=== PATIENT | male | born 1975 | race Caucasian/White ===

== ENCOUNTER 2024-11-03 09:56 | Inpatient (IN) | payer MEDICAID, SELFPAY ==
[2024-11-03] VITALS (79 sets, daily range): BP systolic 49–124; BP diastolic 36–79; PULSE 112–134; RESP 24–47; TEMP 36.6–37.8; O2SAT 88–100; BMI 20.1; BMI 18.3
--- NOTE | 2024-11-03 10:21 | EDNOTE_ITS ---
ED Weakness RME/HPI General Chief complaint: Recheck/Abnormal Lab/Rx Stated complaint: HYPOTENSION Time Seen by Provider: 11/03/24 10:07 Arrival date/time: 11/03/24 09:56 Limitations: no limitations RME / HPI RME / HPI Narrative: 49 year old male with history of esophageal cancer when younger and in remission, hypertension presents to the ED for evaluation of global weakness and shortness of breath today. Reportedly symptoms began a while ago and gradually worsening. Accompanied by a cough. Denies any sick contacts. Per medics report, patient noted to be hypotensive on scene 78/62 and given IV fluids, repeat blood pressure 82/49. Remote history of smoking. Related Data Allergies Allergy/AdvReac Type Severity Reaction Status Date / Time No Known Allergies Allergy Verified 11/03/24 10:13 Review of Systems Review of Systems Systems Reviewed: All systems reviewed, normal except as documented Past Medical History Past Medical History CARDIAC: Positive Hypertension; Negative Congestive Heart Failure RESPIRATORY: Negative Chronic Obstructive Pulmonary Disease (COPD) GENITOURINARY: Negative Renal Disease ENDOCRINE: Negative Diabetes Mellitus Type 1 or Diabetes Mellitus Type 2 Family History FAMILY HISTORY: Positive Family Cancer Social History SMOKING STATUS: Never smoker ED Exam General Limitations: Present no limitations General appearance: Present alert and anxious (shaking his legs rapidly ) Head Head exam: Present atraumatic and normocephalic Eye Eye exam: Present normal appearance, PERRL and EOMI ENT ENT exam: Present normal exam, normal oropharynx and mucous membranes moist Neck Neck exam: Present normal inspection, full ROM and trachea midline Chest Chest inspection: Present normal inspection and symmetric chest wall rise Respiratory Respiratory exam: Present other (slightly coarse breath sounds bilaterally ) Cardiovascular Cardiovascular exam: Present regular rate, normal rhythm, normal heart sounds and other (carotids +1 bruits) Abdominal Exam Abdominal exam: Present soft and normal bowel sounds Extremities Exam Extremities exam: Present normal inspection and full ROM Back Exam Back exam: Present normal inspection and full ROM Neurological Exam Neurological exam: Present alert, oriented X3 and CN II-XII intact Psychiatric Psychiatric exam: Present normal affect and normal mood Skin Skin exam: Present warm, dry, intact and normal color Course Quality Measures Current suspected stage: septic shock (LA >4 and/or hypotension) IVF 30 ml/kg given for lactic acid >4 and/or hypotension: yes Sepsis reassessment completed at (date): 11/03/24 Sepsis reassessment completed at (time): 12:15 Possible source: pulmonary Blood cultures ordered: completed in ED Antibiotic ordered: Yes Pertinent labs: 11/03/24 11:08 Lactic Acid 16.0 H* mMol/L (0.4-2.0) Procalcitonin 1.93 H ng/ml (0.0-0.49) sepsis Orders Category Date Time Status Bedside COVID-19 Antigen Test NOW Care 11/03/24 14:18 Active Bedside Influenza A&B Antigen Test NOW Care 11/03/24 14:18 Completed COVID-19 Screening Questionnaire NOW Care 11/03/24 12:[address] Screening NOW Care 11/03/24 15:05 Active Insecticide Mixer STAT Care 11/03/24 10:33 Active Continuous Pulse Oximetry STAT Care 11/03/24 10:33 Completed Decision to Admit X1 Care 11/03/24 12:57 Completed EKG (ED ONLY) *Do not use* NOW Care 11/03/24 10:22 Completed EKG (ED ONLY) *Do not use* NOW Care 11/03/24 13:15 Completed [place] [Urinary Catheter] QS Care 11/03/24 12:41 Active [place] to [place] Routine Care 11/03/24 12:42 Ordered In and Out Catheter X1PRN Care 11/03/24 10:33 Active Insert IV NOW Care 11/03/24 10:33 Active Insert [Insert IV] NOW Care 11/03/24 10:29 Active Miscellaneous Nursing Order NOW Care 11/03/24 13:32 Active NPO STAT Care 11/03/24 10:33 Active Strict Intake and Output Routine Care 11/03/24 10:33 Ordered CA echo doppler complete Stat Exams 11/03/24 13:[address] angio chest abdomen pelvis Stat Exams 11/03/24 15:05 Ordered CXRP [XR chest 1V portable] Stat Exams 11/03/24 10:32 Completed EKG (ED Only) Stat Exams 11/03/24 10:22 Draft EKG (ED Only) Stat Exams 11/03/24 13:15 Draft ABG [Arterial Blood Gas] Stat Lab 11/03/24 11:20 Completed ABG [Arterial Blood Gas] Stat Lab 11/03/24 14:11 Completed Alcohol, Blood Medical Stat Lab 11/03/24 13:32 Completed Ammonia Stat Lab 11/03/24 13:32 Completed B-Type Natriuretic Peptide Stat Lab 11/03/24 11:08 Completed Blood Culture (Lab) Stat Lab 11/03/24 11:08 Received CBC Stat Lab 11/03/24 11:08 Completed CK [Creatine Kinase] Stat Lab 11/03/24 13:32 Completed Comprehensive Metabolic Panel Stat Lab 11/03/24 11:08 Completed D-Dimer Stat Lab 11/03/24 11:08 Completed Drug Screen,Urine Stat Lab 11/03/24 13:08 Completed Electrolytes, Urine Random Stat Lab 11/03/24 13:08 Completed Free T4 (Free Thyroxine) Stat Lab 11/03/24 13:32 Completed Lactic Acid [Lactate (Lactic Acid)] Stat Lab 11/03/24 11:08 Completed Lactic Acid, 3 HR Stat Lab 11/03/24 14:21 Ordered Lipid Panel Stat Lab 11/03/24 13:32 Completed Magnesium Stat Lab 11/03/24 11:08 Completed Partial Thromboplastin Time Stat Lab 11/03/24 11:08 Completed Procalcitonin Stat Lab 11/03/24 11:08 Completed Prothrombin Time with INR Stat Lab 11/03/24 11:08 Completed Salicylate Stat Lab 11/03/24 13:32 Completed TSH [Thyroid Stimulating Hormone] Stat Lab 11/03/24 13:32 Completed Troponin I Stat Lab 11/03/24 11:08 Completed Troponin I Stat Lab 11/03/24 12:53 Completed Urinalysis Stat Lab 11/03/24 13:07 Completed Urine Culture Stat Lab 11/03/24 13:07 Received ALBUTEROL RT 0.5ml [Proventil Rt 0.5ml] Med 11/03/24 10:58 Discontinued 10 mg INH X1 ONE ALBUTEROL RT 3ml [Proventil Rt 3ml] Med 11/03/24 10:29 Discontinued 10 mg INH X1 ONE Albuterol/Ipratr Rt Anastacia [Duoneb Rt Anastacia] Med 11/03/24 12:31 Discontinued 3 ml .ROUTE .STK-MED ONE Albuterol/Ipratr Rt Anastacia [Duoneb Rt Anastacia] Med 11/03/24 12:34 Discontinued 3 ml INH X1 ONE Doxycycline Inj [Vibramycin Inj] 100 mg Med 11/03/24 10:36 Discontinued Sodium Chloride 0.9% (Pop) [NS 0.9% mini bag] 100 ml IV X1 Etomidate Inj [Amidate Inj] Med 11/03/24 13:47 Discontinued 20 mg IVP X1 ONE Furosemide Inj [Lasix Inj] Med 11/03/24 13:22 Discontinued 20 mg IVP X1 ONE Furosemide Inj [Lasix Inj] Med 11/03/24 14:31 Discontinued 20 mg IVP X1 ONE Furosemide Inj [Lasix Inj] Med 11/03/24 13:22 Discontinued 40 mg IVP X1 ONE Furosemide [Lasix] Med 11/03/24 12:34 Discontinued 40 mg PO X1 ONE LORazepam [Ativan Inj] Med 11/03/24 12:41 Discontinued 0.5 mg IVP X1 ONE MethylPREDNISolone.* [SoluMEDROL Inj] Med 11/03/24 10:29 Discontinued 125 mg IVP X1 ONE MethylPREDNISolone.* [SoluMEDROL Inj] Med 11/03/24 12:34 Discontinued 125 mg IVP X1 ONE Norepinephrine/D5W 8mg/250ml [Levophed in D5W 8mg/250ml Med 11/03/24 14:40 Discontinued ] 8 mg in 250 ml IV .STK-MED Norepinephrine/D5W 8mg/250ml [Levophed in D5W 8mg/250ml Med 11/03/24 14:57 Active ] 8 mg in 250 ml IV 0.05 mcg/kg/min Propofol 1,000 mg Ivpb [Diprivan Ivpb] Med 11/03/24 13:48 Active 1,000 mg in 100 ml IV 5 mcg/kg/min Ringers Lactated 1000 ml [Lactated Ringers] 2,052 ml Med 11/03/24 10:33 Discontinued IV 2,052 mls/hr Ringers Lactated 1000 ml [Lactated Ringers] 500 ml Med 11/03/24 15:02 Active IV 999 mls/hr Rocuronium Inj [Zemuron Inj] Med 11/03/24 13:47 Discontinued 50 mg IV X1 ONE Sodium Chloride 0.9% 500 ml [Ns] 500 ml Med 11/03/24 15:01 Active IV 999 mls/hr Sodium Chloride Rt Anastacia 0.9% [NS Rt Anastacia 0.9%] Med 11/03/24 10:58 Active 3 ml INH PRN PRN cefTRIAXone [Rocephin] 2 gm Med 11/03/24 10:36 Discontinued SODIUM CHLORIDE 0.9% (Popper) [Ns 0.9% (P)] 50 ml IV X1 BiPAP / CPAP NOW RT 11/03/24 10:31 Active Oxygen Delivery NOW RT 11/03/24 12:32 Active Vital Signs Vital signs: Vital Signs Temperature 99.2 F 11/03/24 10:14 Pulse Rate 127 H 11/03/24 10:14 Respiratory Rate 40 H 11/03/24 10:14 Blood Pressure 81/55 L 11/03/24 10:14 Pulse Oximetry (%) 98 11/03/24 10:14 Oxygen Delivery Method Room Air 11/03/24 10:14 Weakness MDM Narrative MDM Narrative:: Catalina Flores am scribing for and in the presence of Dr. Boss. Patient data External records reviewed:: EMS form Clinical information provided by:: patient and EMS Social determinants that could affect healthcare access:: none Patient has the following chronic illnesses:: Asthma? hx of esophageal cancer when younger How is presenting disease/condition affected by chronic disease/condition?: ex acerbated by Evaluation data The following diagnostics were reviewed and interpreted by me:: lab results, radiology exam(s) and EKG tracing(s) (11/03/2024 @ 10:34 AM. Sinus tachycardia with short WI interval, left ventricular hypertrophy, nonspecific ST and T-wave changes, no STEMI. ) Lab and/or radiology exams considered but not ordered:: None Interpretation Summary: Ordering Physician: Devin Boss MD Date of Service: 11/03/24 Procedure(s): XR chest 1V portable Accession Number(s): [id number] cc: Devin Boss MD; Pedrito Amaro MD~ Examination: AP chest single view TECHNIQUE: AP portable upright chest single view Date and time: November 03, 2024 1037 hours INDICATIONS: Shortness of breath today. FINDINGS: Bilateral pneumonia, diffuse and prominent in the right lung Normal heart size Prominent osteopenia IMPRESSION: Bilateral pneumonia, significant in the right lung Dictated By: Pedrito Amaro MD Signed By: <Electronically signed by Pedrito Amaro MD in OV> 11/03/24 1107 Medications / Prescriptions Medications or Prescriptions considered but not ordered:: None Medication administrations:: Medication Administration History Propofol (Diprivan Ivpb) 1,000 mg in 100 mls @ 1.802 mls/hr IV .Q24H PRN; Protocol PRN Reason: PER PROTOCOL Stop: 12/03/24 13:47 Norepinephrine/Dextrose (Levophed In D5w 8mg/250ml) 8 mg in 250 mls @ 5.63 mls/hr IV .Q24H PRN; Protocol PRN Reason: PER PROTOCOL Stop: 12/03/24 14:56 Last Titration: 11/03/24 15:12 Dose: 0.05 mcg/kg/min, 5.63 mls/hr Documented By: Titration: 11/03/24 15:07 Dose: 0.05 mcg/kg/min, 5.63 mls/hr Documented By: Titration: 11/03/24 15:02 Dose: 0.05 mcg/kg/min, 5.63 mls/hr Documented By: Admin: 11/03/24 14:57 Dose: 0.05 mcg/kg/min, 5.63 mls/hr Documented By: Sodium Chloride (Ns) 500 mls @ 999 mls/hr IV .Q31M ONE Stop: 11/03/24 15:31 Last Admin: 11/03/24 15:01 Dose: Not Given Documented By: Non-Admin Reason: Cancelled by Provider Lactated Ringer's (Lactated Ringers) 500 mls @ 999 mls/hr IV .Q31M ONE Stop: 11/03/24 15:32 Last Admin: 11/03/24 15:04 Dose: 999 mls/hr Documented By: Sodium Chloride (Sodium Chloride Rt Anastacia 0.9% 3 Ml Nebu) 3 ml INH PRN PRN PRN Reason: SOLN Stop: 12/03/24 10:57 Discontinued Medications Albuterol (Albuterol Rt 2.5 Mg/3 Ml Nebu) 10 mg INH X1 ONE Stop: 11/03/24 10:30 Last Admin: 11/03/24 11:26 Dose: Not Given Documented By: Non-Admin Reason: Discontinued Albuterol (Albuterol Rt 2.5 Mg/0.5 Ml Nebu) 10 mg INH X1 ONE Stop: 11/03/24 10:59 Last Admin: 11/03/24 11:08 Dose: 10 mg Documented By: Albuterol/Ipratropium (Albuterol/Ipratropium (Duoneb) Rt Anastacia 3 Ml Nebu) 3 ml INH X1 ONE Stop: 11/03/24 12:35 Last Admin: 11/03/24 12:56 Dose: 3 ml Documented By: CLARITZA Albuterol/Ipratropium (Albuterol/Ipratropium (Duoneb) Rt Anastacia 3 Ml Nebu) Confirm Administered Dose 3 ml .ROUTE .STK-MED ONE Stop: 11/03/24 12:32 Last Admin: 11/03/24 12:57 Dose: Not Given Documented By: CLARITZA Non-Admin Reason: Duplicate Medication on eMAR Etomidate (Etomidate Inj 2 Mg/Ml Vial 10 Ml) 20 mg IVP X1 ONE Stop: 11/03/24 13:48 Last Admin: 11/03/24 14:52 Dose: 20 mg Documented By: JALIL Furosemide (Furosemide 40 Mg Tablet) 40 mg PO X1 ONE Stop: 11/03/24 12:35 Last Admin: 11/03/24 12:54 Dose: Not Given Documented By: JALIL Non-Admin Reason: Cancelled by Provider Furosemide (Furosemide Inj 10 Mg/Ml 4ml Vial) 40 mg IVP X1 ONE Stop: 11/03/24 13:23 Last Admin: 11/03/24 13:28 Dose: Not Given Documented By: JALIL Non-Admin Reason: Discontinued Furosemide (Furosemide Inj 10 Mg/Ml 4ml Vial) 20 mg IVP X1 ONE Stop: 11/03/24 13:23 Last Admin: 11/03/24 13:34 Dose: 20 mg Documented By: JALIL Furosemide (Furosemide Inj 10 Mg/Ml 4ml Vial) 20 mg IVP X1 ONE Stop: 11/03/24 14:32 Lactated Ringer's (Lactated Ringers) 2,052 mls @ 2,052 mls/hr 30 ml/kg infuse over 60 min (2052 ml) IV .Q1H ONE Stop: 11/03/24 11:32 Last Infusion: 11/03/24 12:07 Dose: Infused Documented By: Admin: 11/03/24 10:59 Dose: 2,052 mls/hr Documented By: JALIL Ceftriaxone Sodium 2 gm/ (Sodium Chloride) 50 mls @ 100 mls/hr IV X1 ONE Stop: 11/03/24 11:05 Last Infusion: 11/03/24 12:07 Dose: Infused Documented By: Admin: 11/03/24 11:26 Dose: 100 mls/hr Documented By: Doxycycline Hyclate 100 mg/ (Sodium Chloride) 100 mls @ 100 mls/hr IV X1 ONE Stop: 11/03/24 11:35 Last Infusion: 11/03/24 13:25 Dose: Infused Documented By: Admin: 11/03/24 12:23 Dose: 100 mls/hr Documented By: Norepinephrine/Dextrose (Levophed In D5w 8mg/250ml) Confirm Administered Dose 8 mg in 250 mls @ ud IV .STK-MED ONE Stop: 11/03/24 14:41 Last Admin: 11/03/24 14:57 Dose: Not Given Documented By: Non-Admin Reason: Duplicate Medication on eMAR Lorazepam (Lorazepam 2 Mg/Ml Vial) 0.5 mg IVP X1 ONE Stop: 11/03/24 12:42 Last Admin: 11/03/24 13:28 Dose: Not Given Documented By: Non-Admin Reason: Discontinued Methylprednisolone Sodium Succinate (Methylprednisolone Sod Succ 62.5 Mg/Ml 2ml Vial) 125 mg IVP X1 ONE Stop: 11/03/24 10:30 Last Admin: 11/03/24 10:55 Dose: 125 mg Documented By: Methylprednisolone Sodium Succinate (Methylprednisolone Sod Succ 62.5 Mg/Ml 2ml Vial) 125 mg IVP X1 ONE Stop: 11/03/24 12:35 Last Admin: 11/03/24 12:55 Dose: 125 mg Documented By: Rocuronium [place] (Rocuronium Inj 10 Mg/Ml Vial 10 Ml) 50 mg IV X1 ONE Stop: 11/03/24 13:48 Last Admin: 11/03/24 14:52 Dose: 50 mg Documented By: Co-signed By: [facility] Comments: GIVEN IN LEFT AC 1 MINUTE. See above Consultations Consultation(s) initiated? (list below): Yes Consultation #1 (Physician, Specialty, Details): I spoke with senior java j2ee developer Dr. Diaz. Discussed patients PMHx, HPI, ED course, exam findings, labs, and radiology results. Medical Front Desk Coordinator accepts the patient for admission. Time: 12:52 Diagnosis Weakness Differential Diagnosis: acute myocardial infarction, anemia, hypoglycemia, rhabdomyolysis, sepsis and dehydration Most likely diagnosis given after review of the tests above:: Respiratory failure Bilateral pneumonia Sepsis Admission Indicated Admission indicated?: indicated Admission Request Was there a request for admission?: Yes Admission Attestation Admission request attestation: Discussed case with [] from Hospitalist service regarding admission. Discussed patients ED course, exam findings, labs, and radiology results. The Hospitalist [agrees,declines] to accept the patient for admission. Disposition Plan Disposition Plan: Admit Critical Care Time Critical Care Time Critical Care Time: Yes Total Critical Care Time (min.): 90 Attestation: The high probability of sudden, clinically significant deterioration in the patient's condition required the highest level of my preparedness to intervene urgently. The services I provided to this patient were to treat and/or prevent clinically significant deterioration. Services included the following: chart data review, reviewing nursing notes and/or old charts, documentation time, senior treasury consultant collaboration regarding findings and treatment options, medication orders and management, direct patient care, vital sign assessments and ordering, interpreting and reviewing diagnostic studies and lab tests. Aggregate critical care time includes only time during which I was engaged in work directly related to the patient's care, as described above, whether at bedside or elsewhere in the Emergency Department. It did not include time spent performing other reported procedures or the services of residents, students, nurses or physician assistants. Discharge Plan Plan Patient Disposition: Admit Acute Care w/in Hospital Discharge Disposition comment: ICU Prescriptions/Referrals Referrals: No Primary/Family,Physician [Primary Care Provider] - In 1 week Problem List Clinical Impression: Respiratory failure, Sepsis, Bilateral pneumonia Patient/Caregiver Discharge Instructions Print Language: Montenegrin Stand Alone Forms: [facility] Award Info., Patient Portal Info Letter
--- NOTE | 2024-11-03 10:22 | EKG_ITS ---
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
--- NOTE | 2024-11-03 10:32 | XR_ITS ---
Examination: AP chest single view TECHNIQUE: AP portable upright chest single view Date and time: November 03, 2024 1037 hours INDICATIONS: Shortness of breath today. FINDINGS: Bilateral pneumonia, diffuse and prominent in the right lung Normal heart size Prominent osteopenia IMPRESSION: Bilateral pneumonia, significant in the right lung
--- NOTE | 2024-11-03 10:40 | PC.NURSE ---
PT GIVEN 400ML OF NS BY EMS; THE REST OF NS BOLUS ALLOWED TO BE INFUSED, PER DR. REYNOSO. PT GIVEN 1L MORE OF LR BOLUS. PT'S BNP ELEVATED AT THIS TIME. DR. REYNOSO MADE AWARE. PER DR. REYNOSO, DO NOT GIVE LAST 1L OF LR. HOLD FOR NOW. I WILL COME ASSESS PT.
[2024-11-03] MEDS: MethylPREDNISolone SOD SUCC 62.5 MG/ML 2ML VIAL 125 MG IVP ×2 (10:55→12:55)
[2024-11-03] MEDS: RINGERS LACTATED 2052 ML IV (10:59)
[2024-11-03] MEDS: ALBUTEROL RT 2.5 MG/0.5 ML NEBU 10 MG INH (11:08)
[2024-11-03] MEDS: cefTRIAXone 2 GM in SODIUM CHLORIDE 0.9% (Popper) 50 ML IV (11:26)
[2024-11-03 11:27] LABS: Allen Test Not Performed; Base Excess -12 (-3-3); HCO3 12 mEq/L (20-26); Inspired Oxygen, FIO2 30 %; O2 Saturation 100 % (91-98); PCO2 21 mmHg (32.0-48.0); PO2 193 mmHg (83-108); Puncture Site Right Radial; pH, Arterial 7.35 (7.35-7.45)
[2024-11-03 11:29] LABS: Lactate (Lactic Acid) 16.0 mMol/L (0.4-2.0)
[2024-11-03 11:39] LABS: Basophils # (Auto) 0.1 Thou/mm3 (0.0-0.2); Basophils % (Auto) 0 % (0-2.5); Eosinophils # (Auto) 0.0 Thou/mm3 (0.0-0.5); Eosinophils % (Auto) 0 % (0-10); Hematocrit 27.5 % (41.0-53.0); Hemoglobin 8.8 g/dL (13.5-16.0); Immature Granulocytes Auto 0.64 Thou/mm3 (0.00-0.00); Lymphocytes # (Auto) 2.7 Thou/mm3 (1.0-4.8); Lymphocytes % (Auto) 9 % (10-50); Mean Corpuscular HGB Conc 32.0 g/dl (31.0-37.0); Mean Corpuscular Hemoglobin 31.3 pg (25.0-35.0); Mean Corpuscular Volume 98 fL (80-100); Monocytes # (Auto) 2.4 Thou/mm3 (0.0-0.8); Monocytes % (Auto) 7 % (0-12); Neutrophils # (Auto) 26.0 Thou/mm3 (1.8-7.7); Neutrophils % (Auto) 82 % (37-80); Nucleated Red Blood Cell # 0.06 Thou/mm3 (0.00-0.00); Nucleated Red Blood Cell % 0 /100 WBC (0); Platelet Count 541 Thou/mm3 (140-440); RDW Standard Deviation 61.3 fL (35.1-43.9); Red Blood Count 2.81 Miln/mm3 (4.50-5.90); White Blood Count 31.8 Thou/mm3 (3.8-10.6)
[2024-11-03 11:51] LABS: INR 1.4 (0.9-1.3); Partial Thromboplastin Time 28.3 Seconds (22.0-36.0); Prothrombin Time 15.4 Seconds (9.0-12.2)
[2024-11-03 12:00] LABS: B-Type Natriuretic Peptide 2306 pg/mL (0-100)
[2024-11-03 12:01] LABS: Alanine Aminotransferase 81 U/L (10-49); Albumin, Serum 3.1 gm/dL (3.5-5.0); Albumin/Globulin Ratio 1.4 (1.2-2.2); Alkaline Phosphatase 87 U/L (46-116); Anion Gap 25 (7-16); Aspartate Amino Transferase 255 U/L (0-34); BUN/Creatinine Ratio 33 Ratio (12-20); Bilirubin,Total 1.2 mg/dL (0.3-1.2); Blood Urea Nitrogen 53 mg/dL (9-23); Calcium 8.9 mg/dL (8.3-10.6); Calcium (Corrected) 9.6 mg/dL (8.5-10.1); Chloride 108 mMol/L (98-107); Creatinine (Component) 1.6 mg/dL (0.6-1.3); Estimated Creatinine Clearance 46.4 mL/min (>60); Globulin 2.2 gm/dL (2.3-3.5); Glucose 131 mg/dL (74-106); Magnesium 2.0 mg/dL (1.6-2.6); Osmolality,Calculated 306 (275-295); Potassium 5.0 mMol/L (3.4-5.1); Procalcitonin 1.93 ng/ml (0.0-0.49); Sodium 146 mMol/L (136-145); Total Protein 5.3 gm/dL (5.7-8.2); eGFR 52 See Note
[2024-11-03 12:03] LABS: Carbon Dioxide 12.8 mMol/L (20.0-31.0); Troponin I 4.326 ng/mL (0.0-0.045)
[2024-11-03] MEDS: DOXYCYCLINE INJ 100 MG in SODIUM CHLORIDE 0.9% (POP) 100 ML IV (12:23)
[2024-11-03 12:34] LABS: D-Dimer < 250 ng/mL (<600)
[2024-11-03] MEDS: ALBUTEROL/IPRATROPIUM (Duoneb) RT SOL 3 ML NEBU INH (12:56)
--- NOTE | 2024-11-03 13:09 | PC.NURSE ---
PT SIGNED POLST FORM. PT AGREED FOR FULL RESUSCITATION WITHOUT PROLONGED INTUBATION. SEE PT'S CHART FOR POLST FORM FOR MORE INFORMATION. THIS RN WITNESSED. DR. Nayeli REYNOSO AT BEDSIDE EDUCATING ABOUT PT'S POLST FORM. DR. Nayeli REYNOSO SIGNED POLST FORM AND PT SIGNED FORM AT THIS TIME.
--- NOTE | 2024-11-03 13:12 | PC.NURSE ---
ICU TEAM AT BEDSIDE ASSESSING PT AT THIS TIME AND PERFORMING ECHOCARDIOGRAM.
[2024-11-03 13:14] LABS: Collection Type, Urine Clean Catch; Squamous Epithelial Cell,Urine 0 /hpf (0-5)
--- NOTE | 2024-11-03 13:15 | EKG_ITS ---
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
[2024-11-03 13:18] LABS: Troponin I 4.320 ng/mL (0.0-0.045)
[2024-11-03 13:23] LABS: Bacteria,Urine Rare; Bilirubin,Urine Negative (Negative); Blood,Urine Negative (Negative); Clarity,Urine Turbid (Clear/Hazy); Color,Urine Yellow (Lt Yel-Yel); Glucose, Urine Negative (Negative); Hyaline Casts,Urine 3 /hpf (0-1); Ketones,Urine Trace (Negative); Leukocyte Esterase,Urine Negative (Negative); Nitrite,Urine Negative (Negative); PH,Urine 6.0 (5.0-7.0); Protein,Urine Trace (Neg - Trace); RBC,Urine 1 /hpf (0-3); Specific Gravity,Urine 1.020 (1.001-1.035); Urobilinogen,Urine Negative mg/dL (0.0-1.0); WBC,Urine 2 /hpf (0-5)
[2024-11-03] MEDS: FUROSEMIDE INJ 10 MG/ML 4ML VIAL 20 MG IVP (13:34)
--- NOTE | 2024-11-03 13:42 | ECHO_ITS ---
Transthoracic Echo Report Ht (in): 68 Wt (lb): 132 Exam Location: Echo Lab Status: Emergency Security Intern: Nohemy Sterling Indications: Procedure Performed: BP: 108 / 86 HR: 155 Technical Quality: Adequate MEASUREMENTS (Male / Female) Normal Values 2D ECHO LV Diastolic Diameter PLAX 4.7 cm 4.2 - 5.9 / 3.9 - 5.3 cm LV Systolic Diameter PLAX 2.7 cm IVS Diastolic Thickness 0.7 cm 0.6 - 1.0 / 0.6 - 0.9 cm LVPW Diastolic Thickness 0.8 cm 0.6 - 1.0 / 0.6 - 0.9 cm LV Relative Wall Thickness 0.3 LVOT Diameter 1.4 cm LA Volume Index 49.4 cm?/m? 16 - 28 cm?/m? DOPPLER MR Peak Velocity 511.0 cm/s MR Peak Gradient 104.4 mmHg TR Peak Velocity 398.0 cm/s TR Peak Gradient 63.4 mmHg FINDINGS Left Ventricle Normal LV size and moderate LV systolic dysfunction with an EF of 35 to 40%. Apical akinesis with hypokinesis of the mid to apical anterior, anterolateral and apical septal segments indicating possible Takotsubo syndrome versus LAD involvement. Unable to determine diastology due to tachycardia. Right Ventricle The right ventricle is normal in size and systolic function. The estimated right ventricular systolic pressure, 63 mmHg. RAP 5mmHg. Left Atrium The left atrium is normal by two-dimensional, color flow and Doppler imaging with no structural abnormalities, no thrombus formation present. Right Atrium The right atrium is normal by two-dimensional imaging, color flow and Doppler imaging with no structural abnormalities, no thrombus formation present. Atrial Septum The interatrial septum appears normal with no evidence of a shunt. Aorta The aorta is normal by two-dimensional, color flow and Doppler interrogation. Mitral Valve The mitral valve is normal by two-dimensional, color flow and Doppler interrogation. There is severe mitral regurgitation with reverse coando effect. Pulmonary vein Doppler reversal of flow noted. Aortic Valve The aortic valve is trileaflet and normal by two-dimensional, color flow and Doppler interrogation. There is mild aortic valve regurgitation. Tricuspid Valve The tricuspid valve is normal by two-dimensional, color flow and Doppler interrogation. There is mild tricuspid regurgitation. Pulmonic Valve The pulmonic valve is not well visualized. There is no significant pulmonic valve regurgitation. Vessels The pulmonary artery appears normal. The inferior vena cava pulmonary and hepatic veins appear normal. Pericardium The pericardium is normal by two-dimensional imaging. There is no significant pericardial effusion. CONCLUSIONS Indications: ACS Normal LV size and moderate LV systolic dysfunction with an EF of 35 to 40%. Apical akinesis with hypokinesis of the mid to apical anterior, anterolateral and apical septal segments indicating possible Takotsubo syndrome versus LAD involvement. RV Normal in size and function. RVSP moderate to severely elevated at 65 mmHg Moderate to severe eccentric MR directed anteriorly-etiology unclear. Severe LA dilatation. Trace AI Moderate TR with mild RA dilatation. No Pericardial Effusion. IVC not well-visualized Colin Brandt (Electronically Signed) Final Date: 03 November 2024 17:32
--- NOTE | 2024-11-03 13:53 | PC.NURSE ---
DR. NIXON, DR. SHEPHERD AT BEDSIDE SPEAKING TO PT; PT NOW STATING HE DOES NOT WANT TO GET INTUBATED AT THIS TIME. DR. NIXON SPEAKING TO PT AND PT'S SISTER FOR EDUCATION ON BENEFITS OF INTUBATION FOR PT'S PLAN OF CARE AT THIS TIME.
[2024-11-03 13:59] LABS: Ammonia 79 uMol/L (11-32)
--- NOTE | 2024-11-03 14:01 | PC.NURSE ---
DR. NIXON SPOKE TO PT'S SISTER EFFIE AND GAVE CONSENT FOR PT TO BE INTUBATED VIA TELEPHONE. THIS RN WITNESS. PT VERBALLY AGREED AND NODDING IN AGREEMENT WELL. PER DR. NIXON, WE ARE GOING TO WAIT 2O MINUTES. NO INTUBATION FOR NOW. MONITOR PT FOR SIGNS AND SYMPTOMS OF HYPOTENSION, MOTTLING, DECREASED LOC, AND WORSENING RESPIRATORY DISTRESS. IF PT STILL IN RESPIRATORY DISTRESS, WE WILL INTUBATE PT. IF IN 20 MINUTES, PT HAS NOT VOIDED ANOTHER 300ML OF URINE VIA LEIGH CATHETER, GIVE PT ANOTHER 20MG OF LASIX IVPUSH.
[2024-11-03 14:14] LABS: Base Excess -14 (-3-3); HCO3 11 mEq/L (20-26); Inspired Oxygen, FIO2 92 %; O2 Saturation 96 % (91-98); PCO2 20 mmHg (32.0-48.0); PO2 82 mmHg (83-108); pH, Arterial 7.34 (7.35-7.45)
[2024-11-03 14:15] LABS: Allen Test Not Performed; Puncture Site Right Radial
--- NOTE | 2024-11-03 14:15 | PC.NURSE ---
EFFIE, PT'S SISTER, AT BEDSIDE AT THIS TIME.
[2024-11-03 14:21] LABS: Reflex Lactate? Y
--- NOTE | 2024-11-03 14:23 | PC.NURSE ---
DR. SHEPHERD AT BEDSIDE EDUCATING EFFIE, PT'S SISTER, AND PT ABOUT THE BENEFIT OF INTUBATION AT THIS TIME.
[2024-11-03 14:40] LABS: Amphetamine/Methamp Scrn,U Negative (Negative); Barbiturate Screen,Urine Negative (Negative); Benzodiazepines Screen,Urine Negative (Negative); Benzoylecgonine Screen, Ur Negative (Negative); Chloride,Urine Random < 20.0 mMol/L (55.0-125.0); Fentanyl Screen,Urine Negative (Negative); Opiate Screen,Urine Negative (Negative); Potassium,Urine Random 31 mMol/L (12-62); Sodium,Urine Random < 15.0 mMol/L (20.0-110.0); THC Screen,Urine Negative (Negative)
--- NOTE | 2024-11-03 14:41 | PC.NURSE ---
DR. NIXON MADE AWARE PT'S URINE OUTPUT ONLY INCREASED BY 100ML. THIS RN SEEKING CLARIFICATION IF MD STILL WANTED TO GIVE PT 20MG IV PUSH OF LASIX; PER DR. NIXON, HOLD ON GIVING LASIX FOR NOW; WAIT UNTIL PT IS INTUBATED FIRST AND MONITOR HOW HIS BP HANDLES THE INTUBATION PROCESS.
[2024-11-03] MEDS: ETOMIDATE INJ 2 MG/ML VIAL 10 ML 20 MG IVP (14:52)
[2024-11-03] MEDS: ROCURONIUM INJ 10 MG/ML VIAL 10 ML 50 MG IV (14:52)
--- NOTE | 2024-11-03 14:53 | PC.NURSE ---
PT INTUBATED AT 1453; POSITIVE COLOR CHANGE. SIZE OF ETT 7.5, 23CM AT GUM. PT INTUBATED BY DR. Chadwick NIXON
[2024-11-03] MEDS: Norepinephrine/D5W 8mg/250ml 8 MG/250 ML BAG 5.63 MG IV (14:57)
[2024-11-03] MEDS: RINGERS LACTATED 1000 ML 500 ML 999 ML IV (15:04)
--- NOTE | 2024-11-03 15:05 | XR_ITS ---
Examination: CTA chest, with intravenous contrast. CTA abdomen, with intravenous contrast. CTA pelvis, with intravenous contrast. 2-D sagittal and coronal reconstructions. 3-D reconstructions. Date and time of exam: November 03, 2024 1651 hours INDICATIONS: Sharp, hypotension, lactic acidemia, hypoxic respiratory failure postintubation today CTDI vol (mgy) 7.84 DLP (MGycm) 433 Technique: Multiple CTA images, 2.0 mm slice thickness, obtained chest, abdomen, pelvis, with the high-resolution 64 slice scanner. 60 cc Isovue 370 is administered intravenously. Sagittal and coronal 2-D reconstructions are obtained. 3-D reconstructions, angiographic images are obtained. 3-D postprocessing, including vascular maximum intensity projections. Low dose protocols were performed. One or more of the following dose reduction techniques were used; automated exposure control, adjustment of the mA and/or KV according to patient size, use of iterative reconstruction technique. Findings: Tracheal tube tip 25 mm above go No thoracic aortic aneurysm dilatation Main pulmonary artery segment 30 mm, pulmonary alveolar opacification is poor, no gross pulmonary artery filling defects Mild to moderate enlargement cardiac contour with prominent vascular congestion Extensive right lung and left base pneumonia with small right pleural effusion Cirrhosis, liver are nodular in contour Retrocardiac gastric hernia No gallstones No pancreatic or adrenal mass No hydronephrosis Diffuse wall thickening involving the colon, hepatic colopathy No pericecal inflammatory change No bowel obstruction No diverticulitis No significant prostatomegaly Large right inguinal hernia containing colon although no definite incarcerated bowel Urinary bladder contracted around a [place] catheter Moderate osteopenia IMPRESSION: Pulmonary artery opacification is poor, no gross pulmonary artery emboli Mild heart failure. Significant right lung and left base pneumonia, consider aspiration pneumonia Cirrhosis Diffuse hepatic colopathy Large right inguinal hernia containing colon although no definite incarcerated bowel
[2024-11-03 15:07] LABS: Alcohol, Blood Medical < 3.0 mg/dL (0-10.0); Cardiac Risk Estimate 2.1 RATIO (4.0-6.7); Cholesterol 113 mg/dL (132-200); Creatine Kinase 570 U/L (34-171); Free T4 (Free Thyroxine) 0.51 ng/dL (0.89-1.76); HDL Cholesterol 53 mg/dL (40-60); LDL Cholesterol,Calculated 39 mg/dL (0-130); Salicylate < 3.0 mg/dL; Thyroid Stimulating Hormone 1.66 uIU/mL (0.55-4.78); Triglycerides 103 mg/dL (30-150)
--- NOTE | 2024-11-03 15:24 | XR_ITS ---
Examination: AP chest single view Technique one AP portable supine chest single view Date and time: November 03, 2024 1538 hours Comparison November 03, 2024 10:37 AM INDICATIONS: Hypoxic respiratory failure postintubation. FINDINGS: Worsening bilateral lung opacity consistent with pulmonary edema and pneumonia Endotracheal tube tip 2.7 cm above go. Right internal jugular central line tip right atrium no pneumothorax IMPRESSION: Worsening heart failure with possible superimposed pneumonia Endotracheal tube tip 2.7 cm above go Right internal jugular central line tip right atrium no pneumothorax
--- NOTE | 2024-11-03 15:32 | EKG_ITS ---
[facility] Test Date: 2024-11-03 Pat Name: PRUDENCIO LOZADA Department: Room: - Gender: Male Rehabilitation Liaison: : 1975 Requested By: Wiliam Ramos Order Number: [id number] Reading MD: Wiliam Ramos Measurements Intervals [place] Rate: 119 P: ME: QRS: 38 QRSD: 83 T: 199 QT: 353 QTc: 498 Interpretive Statements ATRIAL FLUTTER/TACHYCARDIA WITH RAPID VENTRICULAR RESPONSE ST DEVIATION AND MARKED T-WAVE ABNORMALITY, CONSIDER ANTEROLATERAL ISCHEMIA [-0.5+ mV T-WAVE IN I/aVL/V3-V6] ST DEVIATION AND MODERATE T-WAVE ABNORMALITY, CONSIDER INFERIOR ISCHEMIA [-0.1+ mV T-WAVE IN II/aVF] Compared to ECG 11/03/2024 13:31:12 T-wave abnormality now present Possible ischemia now present Left ventricular hypertrophy no longer present ST (T wave) deviation no longer present /store/S0/[id number]/ecg/[id number].pdf
[2024-11-03] MEDS: fentaNYL 2,500 MCG/250 ML BAG 2,500 MCG/250 ML BAG IV (15:38)
--- NOTE | 2024-11-03 15:40 | PC.NURSE ---
LEESA Razo RN ATTEMPTED TO PLACE OG TUBE X3, NG TUBE X1, UNSUCCESSFUL. THIS RN ATTEMPTED TO INSERTED OG TUBE X2, UNSUCCESSFUL.
[2024-11-03] MEDS: PIPER/TAZO INJ 4.5 GM in SODIUM CHLORIDE 0.9% (POP) 100 ML IV (16:00)
[2024-11-03 16:06] LABS: Lactic Acid, 3 HR 13.1 mMol/L (0.4-2.0)
--- NOTE | 2024-11-03 16:06 | ESHP_ITS ---
<Statement entered by La Diaz MD - 11/04/24 10:21> TOTAL CC TIME: 135 MIN I saw and evaluated the patient. I reviewed the resident?s note and agree with findings and plan as documented in the resident?s note. Upon my evaluation, this patient had a high probability of imminent or life- threatening deterioration due to septic shock acute hypoxic respiratory failure, pneumonia which required my direct attention, intervention, and personal management. This time is exclusive of time spent on procedures, which are documented separately if performed. Patient was seen and examined in the emergency room bed #1 with the ICU resident team. Unfortunately Mr. Trejo was a poor historian and essentially denied most everything on the review of systems despite the fact that he was in extraordinary distress. Initially the patient did not want to be intubated despite respiratory rate in the 40s and 50s and being unable to speak more than 1-2 words at a time. Lactic acid was 16. He denied any toxic ingestions or illicit drug abuse as well as alcohol abuse. Review of bedside informal echocardiogram by ICU team was consistent with poor left ventricular apical function concerning for possible left anterior descending non-ST elevation MD versus stress-induced cardiomyopathy i.e. Takotsubo cardiomyopathy. Given the leukocytosis, and chest x-ray findings we also suspected pneumonia. The patient has a past history of esophagectomy. He eventually agreed to intubation as well as central venous catheter insertion via ultrasound. His sister was at bedside as well. Risk benefits and alternatives to all procedures were discussed in detail. The patient agreed to proceed with the procedures as discussed. He was initially resuscitated with IV fluid but bedside ultrasound identified diffuse B-lines and in the setting of his cardiomyopathy we attempted diuresis. Despite 300 cc of urine output the patient's respiratory failure did not improve. Post intubation, CTA chest abdomen pelvis identified diffuse bilateral pneumonia right greater than left possible aspiration all cultures were obtained Track lactic acid, cap refill noted to be extraordinarily prolonged greater than 10 seconds. Repeat EKG and echocardiogram. Documentation for date of: 11/03/24 HPI History of Present Illness Chief complaint: Weakness, shortness of breath History of present illness: Mr. Trejo is a 49-year-old male with past medical history of hypertension and personal history of esophageal cancer status post-treatment in remission who presented to [facility] emergency department on 11/03/2024 with a chief complaint of weakness and shortness of breath. Patient seen in the emergency department, significantly tachypneic with increased work of breathing, patient reported that he had generalized weakness and fatigue for the last 2 weeks which did not improve and he developed significant severe shortness of breath today. Reported the shortness of breath to be progressive accompanied with coughing, denies any similar complains in the past and denies any sick contacts. Patient denies any recent fevers, chills, headache, weight loss and any other medical problems. Patient also complained that he had been under recent stress, unable to find a job has been looking for a job. ED Course: ED Vitals: On presentation in the emergency department blood pressure 8 1/5 5, heart rate 127, respiratory rate 40, temp 99.2, O2 sat 98 on room air ED Labs: ED labs significant for WBC 31.8, RBC 2.81, hemoglobin 8.8, hematocrit 27.5, platelet count 541, neutrophil 82%, PT 15.4, INR 1.4, sodium 146, potassium 5.0, chloride 108, bicarb 12.8, anion gap 25, BUN 53, creatinine 1.6, GFR 52, glucose 131, osmolality 306, lactic acid 16, AST 255, ALT 81, ammonia 79, total creatinine kinase 570, troponin 4.326, BNP 06/01/2005, total protein 5.3, albumin 3.1, globulin 2.2, cholesterol 113, Pro-Jonny 1.93. Urinalysis showed turbid urine, RBC 1, WBC 2, bacteria rare, hyaline cast 3, sodium less than 15, chloride less than 20. Urine drug screen, salicylate and Ethyl alcohol were negative, ABG in emergency department showed pH 7.35, pCO2 21, bicarb 12 ED Imaging: ED imaging significant for Chest x-ray bilateral pneumonia significant in right lung ED Treatment:Patient was given methylprednisolone 125 mg, LR 2.05 L, albuterol breathing treatment x 1, ceftriaxone, doxycycline and DuoNeb 3 mL x 1 in ED ED physician consulted sewer tapper for possible ICU admission, on examination in ED patient had increased work of breathing, tachypneic and respiratory rate 40s, requiring high flow nasal cannula, SpO2 100. Per review of labs it was noted that patient is lactic acidosis/metabolic acidosis with compensated respiratory alkalosis. Patient was given Lasix 20 mg IV x 1 considering underlying chest x- ray findings, bedside echo showed apical hypokinesis, case was discussed with spud sorter on-call, echocardiogram was ordered in ED. Considering patient continued to have increased work of breathing, patient signed a POLST form for full treatment full code, discussed with patient's sister and patient regarding intubation and central line placement. Patient provided consent patient was intubated by sewer tapper team and postintubation right IJ triple-lumen central line placed. Patient admitted to the intensive care unit for acute hypoxic respiratory failure secondary to distributive shock, increased work of breathing. Review of Systems Review of Systems Narrative Review of Systems: ROS: -CONSTITUTIONAL: Denies weight loss, fever and chills. -HEENT: Denies changes in vision and hearing. -RESPIRATORY: Positive for SOB and cough. -CV: Denies palpitations and Chest Pain. Complains of fluttering sensation in chest. -GI: Denies abdominal pain, nausea, vomiting,constipation and diarrhea. -: Denies dysuria and urinary frequency. -MSK: Denies myalgia and joint pain. -SKIN: Denies rash and pruritus. -NEUROLOGICAL: Denies headache and syncope. -PSYCHIATRIC: Denies recent changes in mood. Denies anxiety and depression. Past Medical History Past Medical History Comments PMH COMMENT: PMH: Positive for hypertension and personal history of esophageal cancer status post-treatment in remission PSHx: Unable to obtain, patient had increased work of breathing Allergies: No known allergies Social history: -Smoking: Denies -Alcohol Use: Occasional alcohol use -Illicit Drug Use: Denies -Occupation: Currently looking for a job Family History: Unable to obtain Home medications: Nifedipine, aspirin, albuterol, cetirizine Exam Vital Signs Temp Pulse Resp BP Pulse Ox O2 Del Method O2 Flow Rate 100.0 F 132 H 30 H 104/64 96 Mechanical Ventilation 40 11/03/24 14:16 11/03/24 15:31 11/03/24 15:16 11/03/24 15:16 11/03/24 15:31 11/03/24 15:16 11/03/24 14:35 FiO2 100 11/03/24 15:31 Narrative Exam Physical Exam General: Intubated and sedated HEENT: Normocephalic, atraumatic, mucous membranes moist. Heart: Sinus Tachycardia, +? Murmur Mitral area Lungs: B/L Crackles Abdomen: Distended, Firm. ?No guarding or rebound tenderness. Neurologic: Intubated and Sedated GCS, 3T Extremities: No edema Skin: No rash or ecchymoses. Results: Labs 11/04/24 05:15 11/04/24 05:15 Labs: Short CBC 11/03/24 Range/Units 11:08 WBC 31.8 H (3.8-10.6) Thou/mm3 Hgb 8.8 L (13.5-16.0) g/dL Hct 27.5 L (41.0-53.0) % Plt Count 541 H (140-440) Thou/mm3 BMP 11/03/24 11:08 Sodium 146 H Potassium 5.0 Chloride 108 H Carbon Dioxide 12.8 L* BUN 53 H Creatinine 1.6 H Glucose 131 H Calcium 8.9 Cardiac Enzymes 11/03/24 11/03/24 11/03/24 Range/Units 11:08 12:53 13:32 Total Creatine Kinase 570 H (34-171) U/L Troponin I 4.326 H* 4.320 H* (0.0-0.045) ng/mL Liver Function 11/03/24 Range/Units 11:08 Total Bilirubin 1.2 (0.3-1.2) mg/dL AST 255 H (0-34) U/L ALT 81 H (10-49) U/L Alkaline Phosphatase 87 (46-116) U/L Albumin 3.1 L (3.5-5.0) gm/dL Urine 11/03/24 Range/Units 13:07 Urine Color Yellow (Lt Yel-Yel) Urine Clarity Turbid A (Clear/Hazy) Urine pH 6.0 (5.0-7.0) Ur Specific [place] 1.020 (1.001-1.035) Urine Protein Trace (Neg - Trace) Urine Glucose (UA) Negative (Negative) ABG Interpretation ABG results: 11/03/24 11/03/24 11:20 14:11 ABG pH 7.35 7.34 L ABG pCO2 21 L 20 L ABG pO2 193 H 82 L D ABG HCO3 12 L 11 L ABG O2 Saturation 100 H 96 ABG Base Excess -12 L -14 L Quality Measures Quality Measures sepsis Current suspected stage: septic shock (LA >4 and/or hypotension) IVF 30 ml/kg given for lactic acid >4 and/or hypotension: yes IVF 30ml/kg not given due to:: other Vasopressors initiated: Yes Sepsis reassessment completed at (date): 11/03/24 Sepsis reassessment completed at (time): 00:00 Possible source: pulmonary Blood cultures ordered: completed in ED Antibiotic ordered: Yes Medications Home Medications and Allergies Allergies Allergy/AdvReac Type Severity Reaction Status Date / Time No Known Allergies Allergy Verified 11/03/24 10:13 Visit Medications Acetaminophen (Acetaminophen 325 Mg Tablet) 650 mg PO Q6H PRN PRN Reason: Fever >101.5 Stop: 12/03/24 15:31 Aspirin (Aspirin Ec 81 Mg Tabec) 81 mg PO QDAY BETO Stop: 12/04/24 08:59 Atorvastatin Calcium (Atorvastatin Calcium 20 Mg Tablet) 40 mg PO HS BETO Stop: 12/03/24 20:59 Propofol (Diprivan Ivpb) 1,000 mg in 100 mls @ 1.802 mls/hr IV .Q24H PRN; Protocol PRN Reason: PER PROTOCOL Stop: 12/03/24 13:47 Norepinephrine/Dextrose (Levophed In D5w 8mg/250ml) 8 mg in 250 mls @ 5.63 mls/hr IV .Q24H PRN; Protocol PRN Reason: PER PROTOCOL Stop: 12/03/24 14:56 Last Titration: 11/03/24 15:12 Dose: 0.05 mcg/kg/min, 5.63 mls/hr Fentanyl Citrate (Sublimaze Inj 2,500 Mcg/250 Ml Bag) 2,500 mcg in 250 mls @ 2.5 mls/hr IV .Q24H PRN; Protocol PRN Reason: PER PROTOCOL Stop: 11/08/24 15:26 Last Admin: 11/03/24 15:38 Dose: 25 mcg/hr, 2.5 mls/hr Heparin Sodium/Dextrose (Heparin In D5w Ivpb) 25,000 unit in 250 mls @ 7.207 mls/hr IV .Q24H BETO; Protocol Stop: 11/17/24 15:44 Piperacillin Sod/Tazobactam (Sod 4.5 gm/ Sodium Chloride) 100 mls @ 200 mls/hr IV X1 ONE Stop: 11/03/24 16:29 Piperacillin/Tazobactam/Dextrose (Zosyn) 3.375 gm in 50 mls @ 12.5 mls/hr IV Q8HR BETO Stop: 11/10/24 21:59 Vancomycin HCl 1,500 mg/ (Sodium Chloride) 500 mls @ 333.333 mls/hr IV X1 ONE Stop: 11/03/24 18:29 Vancomycin/Sodium Chloride (Vancomycin/Ns 1 Gm Ivpb) 200 mls @ 200 mls/hr IV Q24H BETO Stop: 11/11/24 16:59 Ondansetron HCl (Ondansetron Inj 2 Mg/Ml Inj 2 Ml) 4 mg IVP Q6H PRN; Protocol PRN Reason: NAUSEA OR VOMITING Stop: 12/03/24 15:31 Pantoprazole Sodium (Pantoprazole 40 Mg Tablet) 40 mg PO QDAY BETO Stop: 12/03/24 15:44 Pharmacy Consult (Vancomycin Pharmacy To Dose 1 Each Each) 1 each IV QDAY PRN PRN Reason: rx Stop: 12/03/24 15:44 Sennosides (Senna Tablet) 1 tab PO QDAY BETO; Protocol Stop: 12/04/24 08:59 Sodium Chloride (Sodium Chloride Rt Anastacia 0.9% 3 Ml Nebu) 3 ml INH PRN PRN PRN Reason: SOLN Stop: 12/03/24 10:57 Discontinued Medications Albuterol (Albuterol Rt 2.5 Mg/3 Ml Nebu) 10 mg INH X1 ONE Stop: 11/03/24 10:30 Last Admin: 11/03/24 11:26 Dose: Not Given Albuterol (Albuterol Rt 2.5 Mg/0.5 Ml Nebu) 10 mg INH X1 ONE Stop: 11/03/24 10:59 Last Admin: 11/03/24 11:08 Dose: 10 mg Albuterol/Ipratropium (Albuterol/Ipratropium (Duoneb) Rt Anastacia 3 Ml Nebu) 3 ml INH X1 ONE Stop: 11/03/24 12:35 Last Admin: 11/03/24 12:56 Dose: 3 ml Aspirin (Aspirin 325 Mg Tablet) 325 mg PO X1 ONE Stop: 11/03/24 15:38 Atorvastatin Calcium (Atorvastatin Calcium 20 Mg Tablet) 40 mg PO X1 ONE Stop: 11/03/24 15:38 Etomidate (Etomidate Inj 2 Mg/Ml Vial 10 Ml) 20 mg IVP X1 ONE Stop: 11/03/24 13:48 Last Admin: 11/03/24 14:52 Dose: 20 mg Furosemide (Furosemide 40 Mg Tablet) 40 mg PO X1 ONE Stop: 11/03/24 12:35 Last Admin: 11/03/24 12:54 Dose: Not Given Furosemide (Furosemide Inj 10 Mg/Ml 4ml Vial) 40 mg IVP X1 ONE Stop: 11/03/24 13:23 Last Admin: 11/03/24 13:28 Dose: Not Given Furosemide (Furosemide Inj 10 Mg/Ml 4ml Vial) 20 mg IVP X1 ONE Stop: 11/03/24 13:23 Last Admin: 11/03/24 13:34 Dose: 20 mg Furosemide (Furosemide Inj 10 Mg/Ml 4ml Vial) 20 mg IVP X1 ONE Stop: 11/03/24 14:32 Last Admin: 11/03/24 15:51 Dose: Not Given Heparin Sodium (Porcine) (Heparin Sod Inj 5000 Unit/Ml Vial) 3,600 unit 60 unit/kg (3600 unit) IV X1 ONE; Protocol Stop: 11/03/24 15:43 Lactated Ringer's (Lactated Ringers) 2,052 mls @ 2,052 mls/hr 30 ml/kg infuse over 60 min (2052 ml) IV .Q1H ONE Stop: 11/03/24 11:32 Last Infusion: 11/03/24 12:07 Dose: Infused Ceftriaxone Sodium 2 gm/ (Sodium Chloride) 50 mls @ 100 mls/hr IV X1 ONE Stop: 11/03/24 11:05 Last Infusion: 11/03/24 12:07 Dose: Infused Doxycycline Hyclate 100 mg/ (Sodium Chloride) 100 mls @ 100 mls/hr IV X1 ONE Stop: 11/03/24 11:35 Last Infusion: 11/03/24 13:25 Dose: Infused Sodium Chloride (Ns) 500 mls @ 999 mls/hr IV .Q31M ONE Stop: 11/03/24 15:31 Last Admin: 11/03/24 15:01 Dose: Not Given Lactated Ringer's (Lactated Ringers) 500 mls @ 999 mls/hr IV .Q31M ONE Stop: 11/03/24 15:32 Last Infusion: 11/03/24 16:00 Dose: Infused Lorazepam (Lorazepam 2 Mg/Ml Vial) 0.5 mg IVP X1 ONE Stop: 11/03/24 12:42 Last Admin: 11/03/24 13:28 Dose: Not Given Methylprednisolone Sodium Succinate (Methylprednisolone Sod Succ 62.5 Mg/Ml 2ml Vial) 125 mg IVP X1 ONE Stop: 11/03/24 10:30 Last Admin: 11/03/24 10:55 Dose: 125 mg Methylprednisolone Sodium Succinate (Methylprednisolone Sod Succ 62.5 Mg/Ml 2ml Vial) 125 mg IVP X1 ONE Stop: 11/03/24 12:35 Last Admin: 11/03/24 12:55 Dose: 125 mg Rocuronium Sumpter (Rocuronium Inj 10 Mg/Ml Vial 10 Ml) 50 mg IV X1 ONE Stop: 11/03/24 13:48 Last Admin: 11/03/24 14:52 Dose: 50 mg Assessment & Plan Plan Summary: Mr. Trejo is a 49-year-old male with past medical history of hypertension and personal history of esophageal cancer status post-treatment in remission who presented to [facility] emergency department on 11/03/2024 with a chief complaint of weakness and shortness of breath. Neurological Patient A&O x 3 on presentation, currently is intubated and sedated. Cardiology #Shock Differential diagnosis: -Distributive shock: Likely septic in setting of severe pneumonia, patient had significantly elevated lactate on presentation, Pro-Jonny elevated. -Cardiogenic shock: Bedside echocardiogram shows apical hypokinesis, formal echo shows apical akinesis, heart failure with reduced ejection fraction -Obstructive shock: Patient has severe mitral regurgitation, some evidence of LVOT obstruction ?Secondary to sigmoid septum and the hypercontractile basal ventricular wall, CTA chest negative for PE, chest x-ray negative for pneumothorax -Hypovolemic/hemorrhagic shock: Low suspicion patient has no active bleeding, no suspicion of hypovolemia Diagnostic workup: -Lactate on presentation 16, patient has high anion gap metabolic acidosis, Pro- Jonny 1.93 -CTA chest abdomen pelvis shows mild heart failure, significant right lung and left base pneumonia, cirrhosis, large right inguinal hernia -ECHO 11/03: Normal LV size and moderate LV systolic dysfunction with an EF of 35 to 40%. Apical akinesis with hypokinesis of the mid to apical anterior, anterolateral and apical septal segments indicating possible Takotsubo syndrome versus LAD involvement. RV Normal in size and function. 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 Severe LA dilatation. Trace AI Moderate TR with mild RA dilatation. No Pericardial Effusion. IVC not well-visualized Treatment: -IV Zosyn and vancomycin (11/03- -Levophed and vasopressin, titrate MAP goal greater than 65 -Follow limited echocardiogram in a.m. -Patient seems euvolemic for now, hold IV fluids versus diuresis -Troponin down trended Follow-up: -Trend lactate #ACS workup #Elevated troponin #Diffuse T wave inversion in EKG Differential diagnosis: NSTEMI type I, NSTEMI type II demand ischemia in setting of shock, Takotsubo syndrome Diagnostic workup: -Patient had troponin elevation of 4.326 on presentation, EKG done multiple times shows T wave inversion in V3-V6, lead II -Patient does not have any cardiac chest pain, though does report a fluttering in the chest, recent stressor patient is looking for a job -Bedside echocardiogram showed apical akinesis/hypokinesis, cardiology consulted in the ED -ECHO 11/03: Normal LV size and moderate LV systolic dysfunction with an EF of 35 to 40%. Apical akinesis with hypokinesis of the mid to apical anterior, anterolateral and apical septal segments indicating possible Takotsubo syndrome versus LAD involvement. RV Normal in size and function. 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 Severe LA dilatation. Trace AI Moderate TR with mild RA dilatation. No Pericardial Effusion. IVC not well-visualized Treatment: -Aspirin loading dose, aspirin daily -Heparin GTT -Cardiology consulted, appreciate recommendations -Troponin downtrended Follow-up: - Follow limited echocardiogram in a.m. - Follow-up cultures #Heart failure with reduced ejection fraction, EF 35 to 40% #Moderate LV systolic dysfunction, apical akinesis #Moderate to severe eccentric MR, #?ABBI, LVOT obstruction, sigmoid septum Differential diagnosis: LAD occlusion, Takotsubo syndrome Diagnostic workup: -ECHO 11/03: Normal LV size and moderate LV systolic dysfunction with an EF of 35 to 40%. Apical akinesis with hypokinesis of the mid to apical anterior, anterolateral and apical septal segments indicating possible Takotsubo syndrome versus LAD involvement. RV Normal in size and function. 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 Severe LA dilatation. Trace AI Moderate TR with mild RA dilatation. No Pericardial Effusion. IVC not well-visualized - CTA chest does show mild heart failure, chest x-ray in ED did show bilateral pneumonia versus heart failure. Treatment: -Patient was given Lasix 20 IV x 1, IV fluids in ED -Currently patient seems euvolemic, will hold IV fluids/Lasix Follow-up: - Follow limited echocardiogram in a.m. Pulmonary #Acute hypoxic respiratory failure secondary to pneumonia, respiratory failure in setting of shock Differential diagnosis: Pneumonia, increased metabolic demand in setting of shock, increased work of breathing Diagnostic workup: -Initial ABG shows pH 7.35, pCO2 21, pO2 193, bicarb 12, patient on high flow nasal cannula in ED, significantly tachypneic, increased work of breathing, respiratory rate in 40s, accessory muscle use noted. -Patient does have underlying shock, significantly elevated lactate, Pro-Jonny elevated, CTA shows severe right-sided pneumonia and left base pneumonia Treatment: -On mechanical ventilation, volume control - Optimize settings per blood gas Follow-up: - Follow VBG at midnight #Pneumonia Differential diagnosis: Aspiration pneumonia, community-acquired pneumonia Diagnostic workup: -Patient denies any sick contacts, although CTA shows significant right-sided pneumonia and left base pneumonia -Does have history of esophageal cancer in remission, suspicion of aspiration secondary to dysphagia Treatment: -Started on IV Zosyn and vancomycin -Follow culture, Legionella, flu, RSV, COVID, cocci Follow-up: - Follow results Gastrointestinal #Transaminitis Differential diagnosis: Ischemic liver injury, hepatic congestion, viral hepatitis, NAFLD Diagnostic workup: -CTA abdomen shows evidence of cirrhosis, clinically no thrombocytopenia, INR on presentation 1.4, albumin on presentation 3.1. No ascites noted low clinical suspicion of cirrhosis - Urine tox screen negative, blood alcohol level negative, salicylate level negative Treatment: -Ordered hepatitis panel - Will consider liver ultrasound in a.m. Follow-up: -Follow CMP in a.m. #Personal history of esophageal cancer, in remission Differential diagnosis: Suspicion of cancer relapse Diagnostic workup: -Patient reported self history of esophageal cancer reports completed treatment heart disease in remission -Unable to place OG/NG tube Treatment: -GI consulted to place NG tube #Large right inguinal hernia #Dilated bowel loops Differential diagnosis: Incarcerated hernia, ileus Diagnostic workup: -CTA abdomen pelvis shows dilated bowel loops, there is a large right inguinal hernia noted on imaging as well -On physical exam hernia is reducible, low suspicion of incarceration Treatment: -NG tube with LIS -General Surgery consulted, appreciate recommendations Follow-up: - Follow-up with general surgery and gastroenterology Renal/Genitourinary #Acute kidney injury Differential diagnosis: Prerenal, renal in setting of shock, low suspicion of cardiorenal Diagnostic workup: -Patient on presentation had acute kidney injury, creatinine 1.6,BUN 53, patient has good urine output had about 800 cc since admission. -Urine sodium less than 15, potassium 31, chloride less than 20-after 2 L IV fluid Treatment: - Patient was given Lasix 20 IV x 1, 2 L fluid in ED Follow-up: - Follow renal function in a.m. #Hypernatremia Differential diagnosis: Hypovolemic hyponatremia Diagnostic workup: -Sodium 146 on presentation, was given 2 L in ED -Urine sodium less than 15 Treatment: - Was given IV fluid in ED Follow-up: - Follow sodium in a.m. #Lactic acidosis #High anion gap metabolic acidosis Differential diagnosis: In setting of shock/sepsis Diagnostic workup: -Lactate 16 on presentation, down trended with IV fluid last 13.1 Treatment: -Continue pressor support Follow-up: - Follow lactic Endocrine No active problems Hematology #Leukocytosis Diagnostic workup: -Significantly elevated WBC count on presentation Treatment: -Follow CBC in a.m., likely in setting of sepsis #Normocytic normochromic anemia Differential diagnosis: Nutritional deficiency, in the setting of sepsis, low suspicion of hemolysis Diagnostic workup: -Hemoglobin 8.1 on presentation Treatment: -Follow CBC in a.m., will consider further workup #Thrombocytosis Diagnostic workup: -Platelet count significantly elevated on presentation Treatment: -Received IV fluids Follow-up: - Follow CBC in a.m. Infectious Disease #Pneumonia #Bacteriuria - Follow cultures, treatment as above Integumentary No active problems DVT prophylaxis: Heparin drip GI prophylaxis: IV Protonix Diet: N.p.o. Tubes: Endotracheal tube Lines: Peripheral IV, right IJ triple-lumen Code status: Full code Case discussed with Attending Dr. Diaz. Dom Darby MD Internal medicine PGY2 Disclaimer: This note was dictated by speech recognition. Minor errors in teacher education instructor may be present due to voice recognition software.
--- NOTE | 2024-11-03 16:10 | EKG_ITS ---
[facility] Test Date: 2024-11-03 Pat Name: PRUDENCIO LOZADA Department: Room: - Gender: Male Title Specialist: : 1975 Requested By: Dom Darby Order Number: [id number] Reading MD: Dom Darby Measurements Intervals [place] Rate: 132 P: 38 VT: 84 QRS: 72 QRSD: 86 T: 238 QT: 319 QTc: 473 Interpretive Statements SINUS TACHYCARDIA WITH SHORT VT INTERVAL LEFT VENTRICULAR HYPERTROPHY AND ST-T CHANGE [VOLTAGE CRITERIA PLUS ST/T ABNORMALITY] No previous ECG available for comparison /[id number]/[email or web address]/[id number]
--- NOTE | 2024-11-03 16:39 | ESOP_ITS ---
<Statement entered by La Diaz MD - 11/04/24 10:15> I was present for the critical and munoz portions of the procedure and was immediately available to provide assistance. The internal jugular was initially visualized via ultrasonography to confirm good position and anatomy. The patient was on positive airway pressure therapy and the internal jugular was not collapsible despite using ultrasound pressure. Therefore the patient was left in a neutral supine position and not in Trendelenburg especially due to respiratory distress and desaturations despite being on mechanical ventilation. PROCEDURES: Procedure Date / Time 11/03/24 1639 Central Line Placement Right IJ: Indication(s): shock Informed consent obtained: from patient Time out done, and the following verified: correct patient, side and site, procedure, patient position and implants and/or equipment Patient placed on monitor/pulse ox: Yes Hand Hygiene: scrub, soap & water and alcohol-based hand rub Max Sterile Barrier Techniques used: cap, mask, sterile gown, sterile gloves and sterile full body drape Central line prep: Chlorhexidine scrub and sterile drapes applied Local anesthesia used: lidocaine 1% Ultrasound used for placement: Yes Sterile Technique if Ultrasound used, including sterile gel: yes (Probe Cover) Central line lumen inserted: triple Post procedure: sutured in place, good blood return, all ports aspirated, flushed, capped and sterile dressing applied Post procedure x-ray: tip of catheter in good position and no pneumothorax seen Patient tolerated procedure: well and no complications EBL(ml): 5 Complications: none Procedure comment: The [facility] Central Line Insertion Practices form was completed by an independent observer ED Nurse starting with the first handwash prior to starting sterile technique. A time out was performed. My hands were washed immediately prior to the procedure. I wore a surgical cap, mask with protective eyewear, full gown and sterile gloves throughout the procedure. The patient was not placed in Trendelenburg position due to respiratory status. Right chest region was prepped using chlorhexidine scrub and draped in sterile fashion using a full drape and sterile probe cover and sterile gel employed. The medial and lateral heads of the sternocleidomastoid muscle were identified as was the carotid pulse. The Internal Jugular vein was identified using the ultrasound. Anesthesia was achieved over the vein using 1% lidocaine. Using real-time out of plane guidance, the introducer needle was inserted into the Internal Jugular vein under direct ultrasound visualization. Venous blood was withdrawn. The syringe was removed and a guidewire was advanced into the introducer needle. The guidewire was visualized in the Internal Jugular Vein by ultrasound. A small incision was made at the skin surface with a scalpel and the introducer needle was exchanged for a dilator over the guidewire. After appropriate dilation was obtained, the dilator was exchanged over the wire for a triple lumen central venous catheter. The wire was removed and the catheter was sutured in place, bio-patch placed. A sterile sorbaview shield was placed over the catheter at the insertion site. The patient tolerated the procedure without any hemodynamic compromise. At time of procedure completion, all ports aspirated and flushed properly. Post-procedure chest x-ray shows Right internal jugular central line tip right atrium no pneumothorax. Estimated blood loss is less than 5 ml. Performed under supervision of Attending Dr. Diaz. Dom Darby MD Internal Medicine PGY2
--- NOTE | 2024-11-03 16:39 | ESOP_ITS ---
<Statement entered by La Diaz MD - 11/04/24 10:12> I was present for the critical and munoz portions of the procedure and was immediately available to provide assistance. PROCEDURES: Procedure Date / Time 11/03/249 Intubation Indication(s): acute Resp Failure (Increased Work of Breathing, Shock) Informed consent obtained: from patient and other (Sister at Bedside) Time out done, and the following verified: correct patient, side and site, procedure, patient position and implants and/or equipment Sedative: etomidate Mg given: 20 Paralytic: rocuronium Mg given: 50 Laryngoscope: fiber optic video scope ET tube size: 7.5 ET tube uncuffed: Yes Tube secured depth (cm): 23 Tube secured location: teeth Tube placement confirmation: visualized tube passing through cords, equal breath sounds bilaterally, no breath sounds over epigastrium and confirmation by capnometry Patient tolerated procedure: well and no complications EBL(ml): 0 Intubation complications: none Additional comments: PROCEDURE SUMMARY: Surgical cap, mask, and gloves were worn throughout the procedure. The patient was on a media monitor including continuous pulse oximetry. The patient was taken off [facility] and placed in the supine position. He was bagged and preoxygenated to 100%. Rapid Sequence Intubation was conducted. The patient received 20 mg of etomidate for induction and 50 mg of rocuronium for adequate paralysis. Using a fiber optic video laryngoscope and a size 7.5 endotracheal tube with stylet, the patient was intubated on the first attempt. The stylet was removed and cuff balloon was inflated. Appropriate endotracheal tube position was confirmed by direct visualization of vocal cord passage, CO2 colormetric indicator and symmetric breath sounds. The tube was secured at 23 cm at the teeth. Post intubation X-Ray: Endotracheal tube tip 2.7 cm above go. Performed under supervision of Attending Dr. Diaz. Dom Darby MD Internal Medicine PGY2
[2024-11-03 16:47] LABS: Troponin I 3.783 ng/mL (0.0-0.045)
[2024-11-03 17:12] LABS: Carboxyhemoglobin 3.1 % (0.5-1.5)
[2024-11-03 17:14] LABS: Base Excess -12 (-3-3); HCO3 16 mEq/L (20-26); Inspired Oxygen, FIO2 100 %; O2 Saturation 91 % (91-98); PCO2 45 mmHg (32.0-48.0); PO2 78 mmHg (83-108)
[2024-11-03 17:19] LABS: Allen Test Not Performed; Puncture Site Right Radial; pH, Arterial 7.20 (7.35-7.45)
[2024-11-03] MEDS: PROPOFOL 1,000 MG IVPB 1,000 MG/100 ML VIAL 1.802 MG IV (17:33)
--- NOTE | 2024-11-03 17:58 | PC.NURSE ---
PT ARRIVED AT 1732 TO ICU ACCOMPANIED BY RT AND ER NURSE. PT ARRIVED AGITATED AND FIGHTING VENT. EMERGENCY TITRATIONS ORDERED BY JIHAN. PT CONTINUED TO BE AGITATED DESPITE EMERGENT TIRTRATION.
[2024-11-03] MEDS: MIDAZOLAM INJ 1 MG/ML VIAL 2 ML 2 MG IVP (18:07)
[2024-11-03] MEDS: HEPARIN SOD INJ 5000 UNIT/ML VIAL 3300 UNIT IV (18:28)
[2024-11-03] MEDS: Heparin/D5w 25K 250 ML Ivpb 25,000 UNIT/250 ML BAG 6.576 UNIT IV (18:28)
--- NOTE | 2024-11-03 18:35 | ESCONSULT_ITS ---
HPI Data of Consult Requesting Physician: La Diaz MD Admitting Provider: La Diaz MD Attending Provider: La Diaz MD Primary Care Provider: Physician No Primary/Family Consult Narrative History of present illness: The patient is a 49-year-old male with significant past medical history of esophageal cancer currently on remission and hypertension presented to ED on 11/03/2024 with chief complaint of acute SOB and generalized weakness. History was obtained from the chart review, as patient was already intubated during my evaluation. As per chart review, patient was having generalized weakness and fatigue for past 2 weeks, and that later progressed today to severe SOB. He reported associated coughing, but denied any recent sick contact or headache, weight loss, fever or chills. He also reported being currently under stress as he has not been able to find a job. During my evaluation, his blood pressure was 88/57 on Levophed and vasopressin, pulse in 120s, RR in 30s, saturating 100% on mechanical ventilation with FiO2 60% and flow rate of 40 L. His labs are significant for white count 31.8, hemoglobin 8.8, platelet 541, with 82% neutrophil count and white count. PT 15.4, INR 1.4, ABG revealed pH of 7.20, pCO2 45, PO278, bicarb 16 and carboxy hemoglobin 3.1%. Chemistry panel was significant for sodium 146, potassium 5.0, bicarb 12.8, anion gap 25, BUN 53, creatinine 1.6, GFR 52, blood sugar 131, lactic acid 16.0 that mildly trended down to 13.1, magnesium 2.0, ammonia 79, troponin 4.326 that trended down to 4.320 and further trended down to 3.783. BNP was 2306, lipid panel significant for LDL 39, HDL 53, Pro-Jonny 1.93, free T40.51, UA revealing turbid urine, U-Tox negative, coccidiomycosis IgM pending. EKG was significant for sinus tachycardia with deep symmetric T wave inversion in lateral leads V4 to V6, and inverted T wave in lead I and aVL. No STEMI noted. Chest x-ray was significant for bilateral pneumonia, no significant in the right lung. CT chest abdomen and pelvis revealed pulmonary artery opacification to be poor, no gross pulmonary artery emboli, mild heart failure, significant right lung and left base pneumonia, consider aspiration pneumonia, cirrhosis, diffuse hepatic colopathy and large right inguinal hernia containing colon although no definite incarcerated bowel. Patient was given breathing treatment with albuterol, started on ceftriaxone, doxycycline, and also received methylprednisone 125 Mg. Patient was also given Lasix 20 Mg IV x 1, bedside echo was suggestive of apical hypokinesis and cardiology consultation was done for elevated troponins and abnormal EKG finding. Later, patient was sedated and intubated. PMH: As mentioned above SHX: Unable to obtain as patient is intubated Allergies: No known allergies Social history: Denied smoking, occasional alcohol use, denied any drug abuse as per chart review. Currently patient is looking for a job, and is on severe stress. Family history: Unable to obtain Home medications: Nifedipine, aspirin, albuterol and cetirizine. cc:: cc: La Diaz MD Review of Systems Review of Systems ROS Unobtainable: due to endotracheal tube Exam Vital Signs Temp Pulse Resp BP Pulse Ox O2 Del Method O2 Flow Rate 100.0 F 124 H 30 H 90/64 100 Mechanical Ventilation 40 11/03/24 16:11/03/24 16:11/03/24 16:11/03/24 16:11/03/24 16:11/03/24 16:11/03/24 14:35 FiO2 100 11/03/24 15:31 Narrative Exam General: No acute distress, sedated, intubated and mechanically ventilated HEENT: Moist mucous membranes, oropharynx clear Neck: Supple, No masses, No JVD CVS: S1S2 Regular rate and rhythm, No murmurs, rubs or gallops Lungs: Mild wheezing throughout the lung field, rhonchi appreciated throughout the lung field, mild bibasilar crackles appreciated Abd: Soft, NT/ND, +BS, hepatomegaly appreciated Ext: No edema, warm and well perfused Skin: No rash Psych: Unable to obtain Results Labs 11/03/24 11:08 11/03/24 11:08 Labs: Short CBC 11/03/24 Range/Units 11:08 WBC 31.8 H (3.8-10.6) Thou/mm3 Hgb 8.8 L (13.5-16.0) g/dL Hct 27.5 L (41.0-53.0) % Plt Count 541 H (140-440) Thou/mm3 BMP 11/03/24 11:08 Sodium 146 H Potassium 5.0 Chloride 108 H Carbon Dioxide 12.8 L* BUN 53 H Creatinine 1.6 H Glucose 131 H Calcium 8.9 Cardiac Enzymes 11/03/24 11/03/24 11/03/24 Range/Units 11:08 12:53 13:32 Total Creatine Kinase 570 H (34-171) U/L Troponin I 4.326 H* 4.320 H* (0.0-0.045) ng/mL 11/03/24 Range/Units 15:44 Total Creatine Kinase (34-171) U/L Troponin I 3.783 H* D (0.0-0.045) ng/mL Liver Function 11/03/24 Range/Units 11:08 Total Bilirubin 1.2 (0.3-1.2) mg/dL AST 255 H (0-34) U/L ALT 81 H (10-49) U/L Alkaline Phosphatase 87 (46-116) U/L Albumin 3.1 L (3.5-5.0) gm/dL Urine 11/03/24 Range/Units 13:07 Urine Color Yellow (Lt Yel-Yel) Urine Clarity Turbid A (Clear/Hazy) Urine pH 6.0 (5.0-7.0) Ur Specific [place] 1.020 (1.001-1.035) Urine Protein Trace (Neg - Trace) Urine Glucose (UA) Negative (Negative) ABG Interpretation ABG results: 11/03/24 11/03/24 11/03/24 11:20 14:11 17:06 ABG pH 7.35 7.34 L 7.20 L D ABG pCO2 21 L 20 L 45 D ABG pO2 193 H 82 L D 78 L ABG HCO3 12 L 11 L 16 L ABG O2 Saturation 100 H 96 91 ABG Base Excess -12 L -14 L -12 L Quality Measures Quality Measures sepsis Current suspected stage: septic shock (LA >4 and/or hypotension) Sepsis reassessment completed at (date): 11/03/24 Sepsis reassessment completed at (time): 22:00 Possible source: pulmonary Blood cultures ordered: completed in ED Antibiotic ordered: Yes Medications Home Medications and Allergies Allergies Allergy/AdvReac Type Severity Reaction Status Date / Time No Known Allergies Allergy Verified 11/03/24 10:13 Visit Medications Acetaminophen (Acetaminophen 325 Mg Tablet) 650 mg PO Q6H PRN PRN Reason: Fever >101.5 Stop: 12/03/24 15:31 Aspirin (Aspirin Ec 81 Mg Tabec) 81 mg PO QDAY BETO Stop: 12/04/24 08:59 Atorvastatin Calcium (Atorvastatin Calcium 20 Mg Tablet) 40 mg PO HS BETO Stop: 12/03/24 20:59 Propofol (Diprivan Ivpb) 1,000 mg in 100 mls @ 1.802 mls/hr IV .Q24H PRN; Protocol PRN Reason: PER PROTOCOL Stop: 12/03/24 13:47 Last Admin: 11/03/24 17:33 Dose: 5 mcg/kg/min, 1.802 mls/hr Norepinephrine/Dextrose (Levophed In D5w 8mg/250ml) 8 mg in 250 mls @ 5.63 mls/hr IV .Q24H PRN; Protocol PRN Reason: PER PROTOCOL Stop: 12/03/24 14:56 Last Titration: 11/03/24 17:31 Dose: 0.11 mcg/kg/min, 12.387 mls/hr Fentanyl Citrate (Sublimaze Inj 2,500 Mcg/250 Ml Bag) 2,500 mcg in 250 mls @ 2.5 mls/hr IV .Q24H PRN; Protocol PRN Reason: PER PROTOCOL Stop: 11/08/24 15:26 Last Titration: 11/03/24 17:30 Dose: 250 mcg/hr, 25 mls/hr Piperacillin/Tazobactam/Dextrose (Zosyn) 3.375 gm in 50 mls @ 12.5 mls/hr IV Q8HR BETO Stop: 11/10/24 21:59 Vancomycin/Sodium Chloride (Vancomycin/Ns 1 Gm Ivpb) 200 mls @ 200 mls/hr IV Q24H BETO Stop: 11/11/24 16:59 Heparin Sodium/Dextrose (Heparin In D5w Ivpb) 25,000 unit in 250 mls @ 6.576 mls/hr IV .Q24H BETO; Protocol Stop: 11/17/24 15:44 Midazolam HCl (Midazolam Inj 1 Mg/Ml Vial 2 Ml) 2 mg IVP Q2HR PRN PRN Reason: Anxiety or Agitation Stop: 11/08/24 17:59 Last Admin: 11/03/24 18:07 Dose: 2 mg Ondansetron HCl (Ondansetron Inj 2 Mg/Ml Inj 2 Ml) 4 mg IVP Q6H PRN; Protocol PRN Reason: NAUSEA OR VOMITING Stop: 12/03/24 15:31 Pantoprazole Sodium (Pantoprazole Inj 40 Mg Vial) 40 mg IVP QDAY BETO Stop: 12/03/24 15:44 Pharmacy Consult (Vancomycin Pharmacy To Dose 1 Each Each) 1 each IV QDAY PRN PRN Reason: rx Stop: 12/03/24 15:44 Sennosides (Senna Tablet) 1 tab PO QDAY BETO; Protocol Stop: 12/04/24 08:59 Sodium Chloride (Sodium Chloride Rt Anastacia 0.9% 3 Ml Nebu) 3 ml INH PRN PRN PRN Reason: SOLN Stop: 12/03/24 10:57 Discontinued Medications Albuterol (Albuterol Rt 2.5 Mg/3 Ml Nebu) 10 mg INH X1 ONE Stop: 11/03/24 10:30 Last Admin: 11/03/24 11:26 Dose: Not Given Albuterol (Albuterol Rt 2.5 Mg/0.5 Ml Nebu) 10 mg INH X1 ONE Stop: 11/03/24 10:59 Last Admin: 11/03/24 11:08 Dose: 10 mg Albuterol/Ipratropium (Albuterol/Ipratropium (Duoneb) Rt Anastacia 3 Ml Nebu) 3 ml INH X1 ONE Stop: 11/03/24 12:35 Last Admin: 11/03/24 12:56 Dose: 3 ml Aspirin (Aspirin 325 Mg Tablet) 325 mg PO X1 ONE Stop: 11/03/24 15:38 Atorvastatin Calcium (Atorvastatin Calcium 20 Mg Tablet) 40 mg PO X1 ONE Stop: 11/03/24 15:38 Etomidate (Etomidate Inj 2 Mg/Ml Vial 10 Ml) 20 mg IVP X1 ONE Stop: 11/03/24 13:48 Last Admin: 11/03/24 14:52 Dose: 20 mg Furosemide (Furosemide 40 Mg Tablet) 40 mg PO X1 ONE Stop: 11/03/24 12:35 Last Admin: 11/03/24 12:54 Dose: Not Given Furosemide (Furosemide Inj 10 Mg/Ml 4ml Vial) 40 mg IVP X1 ONE Stop: 11/03/24 13:23 Last Admin: 11/03/24 13:28 Dose: Not Given Furosemide (Furosemide Inj 10 Mg/Ml 4ml Vial) 20 mg IVP X1 ONE Stop: 11/03/24 13:23 Last Admin: 11/03/24 13:34 Dose: 20 mg Furosemide (Furosemide Inj 10 Mg/Ml 4ml Vial) 20 mg IVP X1 ONE Stop: 11/03/24 14:32 Last Admin: 11/03/24 15:51 Dose: Not Given Heparin Sodium (Porcine) (Heparin Sod Inj 5000 Unit/Ml Vial) 3,300 unit 60 unit/kg (3300 unit) IV PRN ONE Stop: 11/03/24 18:23 Lactated Ringer's (Lactated Ringers) 2,052 mls @ 2,052 mls/hr 30 ml/kg infuse over 60 min (2052 ml) IV .Q1H ONE Stop: 11/03/24 11:32 Last Infusion: 11/03/24 12:07 Dose: Infused Ceftriaxone Sodium 2 gm/ (Sodium Chloride) 50 mls @ 100 mls/hr IV X1 ONE Stop: 11/03/24 11:05 Last Infusion: 11/03/24 12:07 Dose: Infused Doxycycline Hyclate 100 mg/ (Sodium Chloride) 100 mls @ 100 mls/hr IV X1 ONE Stop: 11/03/24 11:35 Last Infusion: 11/03/24 13:25 Dose: Infused Sodium Chloride (Ns) 500 mls @ 999 mls/hr IV .Q31M ONE Stop: 11/03/24 15:31 Last Admin: 11/03/24 15:01 Dose: Not Given Lactated Ringer's (Lactated Ringers) 500 mls @ 999 mls/hr IV .Q31M ONE Stop: 11/03/24 15:32 Last Infusion: 11/03/24 16:00 Dose: Infused Heparin Sodium/Dextrose (Heparin In D5w Ivpb) 25,000 unit in 250 mls @ 7.207 mls/hr IV .Q24H BETO; Protocol Stop: 11/17/24 15:44 Piperacillin Sod/Tazobactam (Sod 4.5 gm/ Sodium Chloride) 100 mls @ 200 mls/hr IV X1 ONE Stop: 11/03/24 16:29 Last Infusion: 11/03/24 16:30 Dose: Infused Vancomycin HCl 1,500 mg/ (Sodium Chloride) 500 mls @ 333.333 mls/hr IV X1 ONE Stop: 11/03/24 18:29 Lorazepam (Lorazepam 2 Mg/Ml Vial) 0.5 mg IVP X1 ONE Stop: 11/03/24 12:42 Last Admin: 11/03/24 13:28 Dose: Not Given Methylprednisolone Sodium Succinate (Methylprednisolone Sod Succ 62.5 Mg/Ml 2ml Vial) 125 mg IVP X1 ONE Stop: 11/03/24 10:30 Last Admin: 11/03/24 10:55 Dose: 125 mg Methylprednisolone Sodium Succinate (Methylprednisolone Sod Succ 62.5 Mg/Ml 2ml Vial) 125 mg IVP X1 ONE Stop: 11/03/24 12:35 Last Admin: 11/03/24 12:55 Dose: 125 mg Pantoprazole Sodium (Pantoprazole 40 Mg Tablet) 40 mg PO QDAY BETO Stop: 12/03/24 15:44 Rocuronium [place] (Rocuronium Inj 10 Mg/Ml Vial 10 Ml) 50 mg IV X1 ONE Stop: 11/03/24 13:48 Last Admin: 11/03/24 14:52 Dose: 50 mg Assessment & Plan Plan The patient is a 49-year-old male with significant past medical history of esophageal cancer currently on remission, and hypertension presented to ED with chief complaint of acute SOB and generalized weakness is currently being treated for septic shock, Takotsubo syndrome complicated by sigmoid interventricular septum further leading to tachycardia and NSTEMI type II. #Acute hypoxic respiratory failure 2/2 #Septic shock 2/2 #Aspiration pneumonia The patient presented with blood pressure of 81/51, pulse 127, RR 40, and white count 33.8 meeting 3/4 SIRS criteria, chest x-ray significant for right sided middle and lower lobe pneumonia, CT chest abdomen and pelvis revealing right middle and lower lobe pneumonia, and left lower lobe pneumonia, and lactic acid level of 16, with endorgan failure as acute hypoxic respiratory failure requiring intubation. Patient received 2.5 L of bolus IV fluid - Continue with aggressive IV antibiotics - Blood and urine culture sent, pending results - IgM for coccidiomycosis - Pressor support, and recommended to avoid inotropes in the setting of sigmoid interventricular septum complicating Takotsubo syndrome. #Abnormal EKG, likely 2/2 #Takotsubo syndrome, complicated by #Sigmoid interventricular septum, possibly leading to #Moderate to severe eccentric MR, leading to #Moderate to severe PAH #HFrEF with apical akinesis EKG was significant for sinus tachycardia with deep symmetric T wave inversion in lateral leads V4 to V6, and inverted T waves in lead I and aVL. TTE revealed: Normal LV size and moderate LV systolic dysfunction with an EF of 35 to 40%. Apical akinesis with hypokinesis of the mid to apical anterior, anterolateral and apical septal segments indicating possible Takotsubo syndrome versus LAD involvement. RV Normal in size and function. 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 Severe LA dilatation. Trace AI Moderate TR with mild RA dilatation. No Pericardial Effusion. IVC not well- visualized. -As the patient has sigmoid interventricular septum, and recent stressor likely leading to Takotsubo syndrome, leading to tachycardia of upper left ventricular, which is further pulling in mitral valve leading to MR resulting with moderate to severe PAH. -Volume status is critical, to maintain euvolemia, as hypovolemia will cause decrease venous return, resulting as compensatory tachycardia of upper left ventricle leading to further MR, with increased pulmonary arterial pressure and shunt reversal. On the other hand, if there is hypervolemia leading to increased venous return, will complicate MR and increased pulmonary artery pressure. - Repeat TTE tomorrow morning, and we will decide on either to hold Lasix or continue Lasix. Please hold Lasix or fluid until then. - Currently patient is in shock, we will consider starting the patient on GDMT once the patient's blood pressure and other vitals are stable. - We will consider PABLITO after patient is more stable, to further evaluate mitral valve and MR. #NSTEMI type II, less likely type I Likely multifactorial secondary to septic shock, Takotsubo syndrome, sigmoid interventricular septum leading to MR. No significant risk factor for STEMI, except for hypertension, as patient denies smoking or illicit drug use, and lipid panel was significant for LDL 39 and HDL 53. EKG unremarkable for STEMI - Okay to start on heparin drip, if no other contraindication persists - Trend troponin until delta is achieved - May consider cardiac catheterization after the patient is stable - Aspirin 325 Mg x 1, followed by 81 Mg daily - Atorvastatin 40 Mg daily at night Thank you for cardiology consultation. We really appreciate for the opportunity to participate in this patient care. Cardiology team will continue to follow-up on this patient. The patient's management plan was discussed with my attending physician MD Ventura Montes MD, PGY3 Attending Provider Attestation/Addendum I have personally seen and examined the patient separately on the above date of service and discussed the plan of care with the resident. I reviewed the resident Dr. Ventura Myers consultation progress note and agree with the resident findings and plan in the note above and have also edited the documentation to reflect my findings and plan. A 49-year-old male with a past medical history of esophageal cancer s/p treatment apparently in remission, essential hypertension presented to the emergency department for worsening shortness of breath as well as generalized weakness for the past few days. Patient was unable to lie flat. Also not able to speak in full sentences today and to bring him to the emergency department. Patient has been having some cough fatigue along with worsening shortness of breath over the past 1 to 2 weeks. In the emergency department patient blood pressure was 81/55 mmHg, heart rate of 127 bpm respirate rate 40/min, using extremities well, temperature 99.2 F and saturation 98% on room air. ED Course: ED Vitals: On presentation in the emergency department blood pressure 8 1/5 5, heart rate 127, respiratory rate 40, temp 99.2, O2 sat 98 on room air ED Labs: ED labs significant for WBC 31.8, RBC 2.81, hemoglobin 8.8, hematocrit 27.5, platelet count 541, neutrophil 82%, PT 15.4, INR 1.4, sodium 146, potassium 5.0, chloride 108, bicarb 12.8, anion gap 25, BUN 53, creatinine 1.6, GFR 52, glucose 131, osmolality 306, lactic acid 16, AST 255, ALT disease, ammonia 79, total creatinine kinase 570, troponin 4.326, BNP 06/01/2005, total protein 5.3, albumin 3.1, globulin 2.2, cholesterol 113, Pro-Jonny 1.93. Urinalysis showed turbid urine, RBC 1, WBC 2, bacteria rare, hyaline cast 3, sodium less than 15, chloride less than 20. Urine drug screen, salicylate and Ethyl alcohol were negative, ABG in emergency department showed pH 7.35, pCO2 21, bicarb 12 ED Imaging: ED imaging significant for Chest x-ray bilateral pneumonia significant in right lung ED Treatment: 2 L fluids on admission, patient was given methylprednisolone 125 mg, LR 2.05 L, albuterol breathing treatment x 1, ceftriaxone, doxycycline and DuoNeb 3 mL x 1 in ED Cardiology consulted for elevated troponins at 4.5, abnormal EKG with diffuse T wave inversions in the lateral leads V4 to V6 along with T wave inversions in 1 aVL, inferior leads. Assessment and plan: 1. Shock-septic shock mostly secondary to the severe bilateral pneumonia right greater than left from possible aspiration 2. Acute hypoxic respiratory failure s/p intubation mechanical ventilation secondary to the aspiration pneumonia. 3. Elevated troponins NSTEMI type II greater than type I 4. Possible Takotsubo syndrome versus LAD territory disease based on wall motion abnormalities noted on echo. 5. Moderate to severe eccentric MR mostly secondary to the ABBI with mild LVOT obstruction from the sigmoid with no clear evidence of hypertrophic cardiomyopathy. 6. Moderate LV dysfunction with an EF of 35 to 40% with new onset systolic heart failure 7. Possible Takotsubo syndrome versus LAD territory disease based on wall motion abnormalities noted on echo. 8. Moderate to severely elevated RVSP at around 65 mmHg 9. Severe lactic acidosis at 16 bicarb of 12 on admission 10. Acute kidney injury versus acute on chronic kidney disease 12. Possible cirrhosis of liver 13. History of previous esophageal cancer status posttreatment and now apparently remission 14. Essential hypertension Patient presentation is consistent with mostly septic shock given the severely elevated WBC 32,000 with left shift along with severe lactic acidosis at 16th. Procalcitonin is also elevated at 1.94. Chest x-ray showed pneumonia. Patient should be started on broad-spectrum IV antibiotics in the as he is not responding well with almost 2 L IV fluids. Further antibiotic regimen as per the primary team. Regarding abnormal EKG patient does not have any acute ST changes suggestive of acute MT or acute coronary syndrome. Patient has deep T wave inversions from V2-V6 which could be secondary to Takotsubo syndrome versus LAD disease versus LVH with strain pattern with significant large stroke. Patient denies any chest pain chest pressure but complained of severe shortness of breath which is explained to his pneumonia and septic shock. Troponins were elevated at 4.5. EKG without any acute ST changes suggestive STEMI rest of the EKG findings as noted above. Continue to trend the troponins for now. Heparin drip if no contraindication for anticoagulation. Patient mostly has NSTEMI type II greater than type I given his presentation with possible Takotsubo syndrome. Patient will need a cardiac catheterization before discharge when he is hemodynamically stable and treated adequately for the septic shock secondary to the etiology of the apical ballooning-Takotsubo versus LAD disease. Aspirin and statin for now. Continue telemetry. Echocardiogram completed and showed Normal LV size and moderate LV systolic dysfunction with an EF of 35 to 40%. Apical akinesis with hypokinesis of the mid to apical anterior, anterolateral and apical septal segments indicating possible Takotsubo syndrome versus LAD involvement. RV Normal in size and function. 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 Severe LA dilatation. Trace AI with moderate TR with mild RA dilatation. No Pericardial Effusion. IVC not well-visualized Strict input output, daily weights and 2 g sodium diet when patient able to eat. Patient was given 2 L of IV fluid initially in the emergency department and then 20 mg of IV Lasix. We will hold off on any further diuresis for now and reevaluate in a.m. Patient should be euvolemic in the aggressive diuresis could worsen the elevated obstruction and and fluid overload could worsen her as moderate to severe MR. Will recommend to repeat a limited echo to further evaluate better ABBI along with the sigmoid hypertrophy and the M-mode of the mitral valve.Will consider PABLITO for further evaluation if a limited echo does not provide enough information. Patient has moderate to severely elevated RVSP at around 65 mmHg and could be secondary to the severe MR along with possible underlying pulmonary hypertension. There is a high probability of sudden, clinically significant or life threatening deterioration in the patient condition which required the highest level of physician preparedness to intervene urgently. I have personally spent 65 minutes of critical care time, exclusive of time spent on any procedures, in evaluation and management of this critically ill patient. Management of rest of the medical conditions as per primary team and other consultants. Thank you for the consult and allowing me to participate in the care of the patient. Cardiology will continue to follow. Colin Brandt M.D. Interventional Cardiology
[2024-11-03] MEDS: VASOPRESSIN IN NS IVPB 20 UNIT/100 ML BAG 9 UNIT IV (18:55)
--- NOTE | 2024-11-03 19:00 | PC.NURSE ---
PT UNSTBABLE UPON ADMISSION TO ICU. MULTIPLE TITRATIONS AND MEDICATIONS REQUIRED TO STABLIZE PATIENT. UNABLE TO COMPLETE ADMISSION ASSESSMENTS. REPORT GIVEN TO PHILOMENA ESPINOZA
--- NOTE | 2024-11-03 20:27 | PC.RT ---
noted peep titrated to 8 fio2 to 60% per DR. Swain.
[2024-11-03] MEDS: PIPER/TAZO 3.375 GM PREMIX 3.375 GM/50 ML BAG IV (21:08)
--- NOTE | 2024-11-03 21:41 | ESCONSULT_ITS ---
HPI Data of Consult Requesting Physician: La Diaz MD Primary Care Provider: Physician No Primary/Family Consult Narrative Reason for consult: For placement of a NGT or orogastric tube History of present illness: 49 is a male admitted to the hospital with diffuse bilateral pneumonia acute respiratory failure requiring endotracheal intubation and mechanical ventilation who on CT angio chest abdomen pelvis showed bilateral pneumonia cirrhotic liver disease large inguinal hernia on the right side no incarceration of the bowel Patient does have a history of hypertension and esophageal carcinoma status posttreatment but current for treatment is not known from the history Patient has a troponin of 3.783 pro time INR 1.4 lactic acid of 13.1 and a WBC count of 31.8 with a hemoglobin hematocrit 8.8 and 27.4 with a platelet count of 541,000 cc:: cc: La Diaz MD Review of Systems Review of Systems ROS Unobtainable: unobtainable due to medical condition Meds Home Medications and Allergies Allergies Allergy/AdvReac Type Severity Reaction Status Date / Time No Known Allergies Allergy Verified 11/03/24 10:13 Exam Vital Signs Temp Pulse Resp BP Pulse Ox O2 Del Method O2 Flow Rate 99.4 F 122 H 30 H 101/67 100 Mechanical Ventilation 40 11/03/24 17:35 11/03/24 21:19 11/03/24 17:45 11/03/24 21:19 11/03/24 21:19 11/03/24 17:35 11/03/24 14:35 FiO2 60 11/03/24 21:19 Routine Respiratory Exam Comments: Mechanically ventilated Routine Abdominal Exam Comments: Soft nontender Results Labs 11/03/24 11:08 11/03/24 11:08 Labs: Short CBC 11/03/24 Range/Units 11:08 WBC 31.8 H (3.8-10.6) Thou/mm3 Hgb 8.8 L (13.5-16.0) g/dL Hct 27.5 L (41.0-53.0) % Plt Count 541 H (140-440) Thou/mm3 BMP 11/03/24 11:08 Sodium 146 H Potassium 5.0 Chloride 108 H Carbon Dioxide 12.8 L* BUN 53 H Creatinine 1.6 H Glucose 131 H Calcium 8.9 Cardiac Enzymes 11/03/24 11/03/24 11/03/24 Range/Units 11:08 12:53 13:32 Total Creatine Kinase 570 H (34-171) U/L Troponin I 4.326 H* 4.320 H* (0.0-0.045) ng/mL 11/03/24 Range/Units 15:44 Total Creatine Kinase (34-171) U/L Troponin I 3.783 H* D (0.0-0.045) ng/mL Liver Function 11/03/24 Range/Units 11:08 Total Bilirubin 1.2 (0.3-1.2) mg/dL AST 255 H (0-34) U/L ALT 81 H (10-49) U/L Alkaline Phosphatase 87 (46-116) U/L Albumin 3.1 L (3.5-5.0) gm/dL Urine 11/03/24 Range/Units 13:07 Urine Color Yellow (Lt Yel-Yel) Urine Clarity Turbid A (Clear/Hazy) Urine pH 6.0 (5.0-7.0) Ur Specific [place] 1.020 (1.001-1.035) Urine Protein Trace (Neg - Trace) Urine Glucose (UA) Negative (Negative) ABG Interpretation ABG results: 11/03/24 11/03/24 11/03/24 11:20 14:11 17:06 ABG pH 7.35 7.34 L 7.20 L D ABG pCO2 21 L 20 L 45 D ABG pO2 193 H 82 L D 78 L ABG HCO3 12 L 11 L 16 L ABG O2 Saturation 100 H 96 91 ABG Base Excess -12 L -14 L -12 L Assessment and Plan Additional Assessment & Plan Additional Plan: 49 years old male with acute respiratory failure bilateral pneumonia acute coronary syndrome mechanically ventilated with previous history of Esophageal carcinoma status posttreatment and supposedly in remission Difficulty placing the NGT only OGT in Plan Will attempt to place a 14 [place] NGT either via nasogastric approach or oral approach Will follow the patient # Transaminitis most likely due to hypoxic hepatitis Thank you very much for the opportunity to participate in the care of this patient
[2024-11-03] MEDS: VANCOMYCIN/NS 1 GM IVPB 200 ML IV (22:00)
--- NOTE | 2024-11-03 23:22 | XR_ITS ---
Examination: Abdomen AP single view Technique: AP portable supine abdomen, single view Exam date and time: November 04, 2024 0008 hours INDICATIONS: Post orogastric tube placement today. FINDINGS: Orogastric tube satisfactory position Mild small bowel ileus No free air IMPRESSION: Orogastric tube in the stomach satisfactory position
[2024-11-04] VITALS (203 sets, daily range): BP systolic 74–129; BP diastolic 40–81; PULSE 95–121; RESP 14–38; TEMP 36.2–37.3; O2SAT 95–100; BMI 18.2; BMI 22.7
[2024-11-04 00:26] LABS: Base Excess, Venous -1 (-3-3); O2 Saturation, Venous 78 % (96-97); PCO2, Venous 35 mmHg (36-56); PO2, Venous 43 mmHg (15-58); pH, Venous 7.43 (7.33-7.66)
[2024-11-04] MEDS: PROPOFOL 1,000 MG IVPB 1,000 MG/100 ML VIAL 12.612 MG IV (00:33)
[2024-11-04] MEDS: fentaNYL 2,500 MCG/250 ML BAG 2,500 MCG/250 ML BAG 30 MCG IV (00:35)
[2024-11-04] MEDS: Norepinephrine/D5W 8mg/250ml 8 MG/250 ML BAG 34.908 MG IV (00:37)
[2024-11-04 00:56] LABS: Partial Thromboplastin Time 87.4 Seconds (22.0-36.0)
--- NOTE | 2024-11-04 03:42 | PC.RT ---
vent changed per DR. Lovelace Marvin RR 26, peep titrated to 6 fio2 45%
[2024-11-04] MEDS: VASOPRESSIN IN NS IVPB 20 UNIT/100 ML BAG 9 UNIT IV (04:00)
[2024-11-04 04:39] LABS: Base Excess 1 (-3-3); HCO3 23 mEq/L (20-26); Inspired Oxygen, FIO2 45 %; O2 Saturation 100 % (91-98); PCO2 30 mmHg (32.0-48.0); PO2 109 mmHg (83-108); pH, Arterial 7.50 (7.35-7.45)
[2024-11-04 04:52] LABS: Allen Test Performed/OK; Puncture Site Right Radial
--- NOTE | 2024-11-04 04:59 | PC.RT ---
fio2 titrated to 35% RR titrated to 20 per abg results
--- NOTE | 2024-11-04 05:00 | XR_ITS ---
Examination: AP chest single view TECHNIQUE: AP portable semiupright chest single view Date and time: November 04, 2024, 0352 hours Comparison November 03, 2024 INDICATIONS: Hypoxic respiratory failure postintubation this week FINDINGS: No significant cardiac enlargement Prominent perihilar lung opacity especially in the right upper lobe at both lung bases Prominent vascular congestion Right internal jugular central line tip SVC satisfactory position Endotracheal tube tip 4.9 cm above [place]. The orogastric tube is in the stomach the tip is below the level of the film IMPRESSION: Extensive bilateral pneumonia Suspicious for associated heart failure
[2024-11-04] MEDS: PIPER/TAZO 3.375 GM PREMIX 3.375 GM/50 ML BAG IV ×3 (05:26→21:01)
[2024-11-04 05:50] LABS: Base Excess, Venous 0 (-3-3); O2 Saturation, Venous 93 % (96-97); PCO2, Venous 27 mmHg (36-56); PO2, Venous 57 mmHg (15-58); pH, Venous 7.52 (7.33-7.66)
--- NOTE | 2024-11-04 06:00 | ECHO_ITS ---
Transthoracic Echo Report Ht (in): 68 Wt (lb): 120 Exam Location: Echo Lab Status: Inpatient Deicer Finisher: Nohemy Sterling Indications: Procedure Performed: BP: 111 / 56 HR: 105 Technical Quality: Adequate MEASUREMENTS (Male / Female) Normal Values DOPPLER AV Peak Velocity 326.0 cm/s AV Peak Gradient 42.5 mmHg MR Peak Velocity 543.0 cm/s MR Peak Gradient 117.9 mmHg FINDINGS Left Ventricle Akinesis of the apex, apical inferoseptal/inferior/septal, and apical anterior wall segments. Estimated EF 25- 30%. Mitral Valve Moderate posterior annulus calcification without stenosis as well as moderate leaflet thickening. Systolic anterior motion of the anterior mitral valve leaflet. [id number] anteriorly directed mitral regurgitation. CONCLUSIONS Indication: MR and CHF-Limited echo Normal LV size and mildly decreased LV systolic function with an EF of around 40 to 45%. EF improved from yesterday. Hypokinesis of the mid to apical anterior and anterolateral and apical segments appear improved. Apical akinesis still noted. Sigmoid septum noted with LVOT obstruction leading to moderate to severe eccentric MR directed anteriorly. Gradient measurement not accurate due to contamination with MR jet. Normal RV size and function. No pericardial effusion Colin Brandt (Electronically Signed) Final Date: 05 November 2024 19:18
[2024-11-04 06:05] LABS: Basophils # (Auto) 0.1 Thou/mm3 (0.0-0.2); Basophils % (Auto) 0 % (0-2.5); Eosinophils # (Auto) 0.0 Thou/mm3 (0.0-0.5); Eosinophils % (Auto) 0 % (0-10); Hematocrit 22.6 % (41.0-53.0); Immature Granulocytes Auto 0.13 Thou/mm3 (0.00-0.00); Lymphocytes # (Auto) 3.2 Thou/mm3 (1.0-4.8); Lymphocytes % (Auto) 10 % (10-50); Mean Corpuscular HGB Conc 34.1 g/dl (31.0-37.0); Mean Corpuscular Hemoglobin 31.7 pg (25.0-35.0); Mean Corpuscular Volume 93 fL (80-100); Monocytes # (Auto) 1.8 Thou/mm3 (0.0-0.8); Monocytes % (Auto) 6 % (0-12); Neutrophils # (Auto) 26.2 Thou/mm3 (1.8-7.7); Neutrophils % (Auto) 84 % (37-80); Nucleated Red Blood Cell # 0.16 Thou/mm3 (0.00-0.00); Nucleated Red Blood Cell % 1 /100 WBC (0); Platelet Count 518 Thou/mm3 (140-440); RDW Standard Deviation 58.3 fL (35.1-43.9); Red Blood Count 2.43 Miln/mm3 (4.50-5.90); White Blood Count 31.4 Thou/mm3 (3.8-10.6)
[2024-11-04 06:06] LABS: Hemoglobin 7.7 g/dL (13.5-16.0)
[2024-11-04 06:33] LABS: INR 1.5 (0.9-1.3); Partial Thromboplastin Time 74.6 Seconds (22.0-36.0); Prothrombin Time 15.6 Seconds (9.0-12.2)
[2024-11-04 06:34] LABS: Alanine Aminotransferase 142 U/L (10-49); Albumin, Serum 2.9 gm/dL (3.5-5.0); Albumin/Globulin Ratio 1.4 (1.2-2.2); Alkaline Phosphatase 70 U/L (46-116); Anion Gap 10 (7-16); Aspartate Amino Transferase 392 U/L (0-34); BUN/Creatinine Ratio 38 Ratio (12-20); Bilirubin,Total 0.7 mg/dL (0.3-1.2); Blood Urea Nitrogen 49 mg/dL (9-23); Calcium 7.6 mg/dL (8.3-10.6); Calcium (Corrected) 8.5 mg/dL (8.5-10.1); Carbon Dioxide 23.6 mMol/L (20.0-31.0); Chloride 110 mMol/L (98-107); Creatinine (Component) 1.3 mg/dL (0.6-1.3); Estimated Creatinine Clearance 52.1 mL/min (>60); Globulin 2.1 gm/dL (2.3-3.5); Glucose 226 mg/dL (74-106); Magnesium 2.0 mg/dL (1.6-2.6); Osmolality,Calculated 306 (275-295); Phosphorous 2.9 mg/dL (2.4-5.1); Potassium 4.1 mMol/L (3.4-5.1); Sodium 144 mMol/L (136-145); Total Protein 5.0 gm/dL (5.7-8.2); eGFR > 60 See Note
[2024-11-04 07:10] LABS: Procalcitonin 4.24 ng/ml (0.0-0.49)
[2024-11-04] MEDS: Norepinephrine/D5W 8mg/250ml 8 MG/250 ML BAG 37.16 MG IV (07:15)
[2024-11-04 07:26] LABS: Lactate (Lactic Acid) 3.5 mMol/L (0.4-2.0)
[2024-11-04 08:36] LABS: Hepatitis A Antibody IgM Non Reactive (Non React); Hepatitis B Core Antibody IgM Non Reactive (Non React); Hepatitis B Surface Antigen Non Reactive (Non React); Hepatitis C Antibody Non Reactive (Non React)
[2024-11-04] MEDS: ASPIRIN 81 MG CHEW GT (08:48)
[2024-11-04 08:50] LABS: Misc Send Out* See Sep Rpt
[2024-11-04] MEDS: FOLIC ACID INJ 1 MG/0.2 ML IVP (09:37)
[2024-11-04] MEDS: THIAMINE INJ 100 MG/ML VIAL 2 ML 200 MG IVP ×2 (09:37→21:01)
[2024-11-04 10:00] LABS: Partial Thromboplastin Time 69.2 Seconds (22.0-36.0)
--- NOTE | 2024-11-04 10:11 | ESPR_ITS ---
<Statement entered by La Diaz MD - 11/05/24 08:23> TOTAL CC TIME: 45 MIN I saw and evaluated the patient. I reviewed the resident?s note and agree with findings and plan as documented in the resident?s note. Upon my evaluation, this patient had a high probability of imminent or life- threatening deterioration due to septic shock which required my direct attention, intervention, and personal management. This time is exclusive of time spent on procedures, which are documented separately if performed. Lactic acid has been improving We reviewed with the echocardiogram at bedside, the apex of the left ventricle remains somewhat depressed but improved, the LVOT obstruction remains visible with ABBI Vasopressin was stopped and phenylephrine started which dramatically improved pressor requirements. We were able to substantially reduce Levophed as well. Remains on broad-spectrum antibiotics, mechanical ventilation settings adjusted closer to 6 cc/kg per ideal body weight Mechanical ventilation dynamics appropriate; permissive hypercapnia will be acceptable Will stop heparin drip after 24 hours as this appears to be discussed with cardiology. Documentation for date of: 11/04/24 Subjective Subjective Interval history: Mr. Trejo is a 49-year-old male with past medical history of hypertension and personal history of esophageal cancer status post-treatment in remission who presented to [facility] emergency department on 11/03/2024 with a chief complaint of weakness and shortness of breath. Patient seen in the emergency department, significantly tachypneic with increased work of breathing, patient reported that he had generalized weakness and fatigue for the last 2 weeks which did not improve and he developed significant severe shortness of breath today. Reported the shortness of breath to be progressive accompanied with coughing, denies any similar complains in the past and denies any sick contacts. Patient denies any recent fevers, chills, headache, weight loss and any other medical problems. Patient also complained that he had been under recent stress, unable to find a job has been looking for a job. ED physician consulted game technician for possible ICU admission, on examination in ED patient had increased work of breathing, tachypneic and respiratory rate 40s, requiring high flow nasal cannula, SpO2 100. Per review of labs it was noted that patient is lactic acidosis/metabolic acidosis with compensated respiratory alkalosis. Patient was given Lasix 20 mg IV x 1 considering underlying chest x- ray findings, bedside echo showed apical hypokinesis, case was discussed with bullet swaging machine operator on-call, echocardiogram was ordered in ED. Considering patient continued to have increased work of breathing, patient signed a POLST form for full treatment full code, discussed with patient's sister and patient regarding intubation and central line placement. Patient provided consent patient was intubated by game technician team and postintubation right IJ triple-lumen central line placed. Patient admitted to the intensive care unit for acute hypoxic respiratory failure secondary to distributive shock, increased work of breathing. 11/04/24: Patient had black bowel movement overnight, 500 cc greenish fluid suctioned out of NG tube, was given aspirin earlier this morning, we will titrate down tidal volume lung protective volume goal 4 to 6 cc/kg, goal tidal volume for today is 320 will titrate down as patient tolerates, limited echo at bedside reviewed with radiologic technician, there is some concern of LVOT obstruction patient's pressor requirement has improved, plan to titrate down vaso and replace vaso with phenylephrine, will start patient on thiamine IV twice daily and folate IV daily. Pending limited echo results. Exam Vital Signs Temp Pulse Resp BP Pulse Ox O2 Del Method O2 Flow Rate 99.1 F 105 H 30 H 105/65 98 Mechanical Ventilation 65 11/04/24 08:00 11/04/24 09:10 11/03/24 17:45 11/04/24 09:10 11/04/24 09:10 11/04/24 08:00 11/04/24 00:00 FiO2 35 11/04/24 08:00 Narrative Exam Physical Exam General: Intubated and sedated HEENT: Normocephalic, atraumatic, mucous membranes moist. NG tube noted. Right IJ triple-lumen catheter noted. Heart: Sinus Tachycardia, +Murmur Mitral area Lungs: B/L diffuse crackles Abdomen: Soft, nondistended, nontender. ?No guarding or rebound tenderness. Neurologic: Intubated and Sedated GCS, 3T Extremities: No edema Skin: No rash or ecchymoses. Objective Labs 11/04/24 05:15 11/04/24 05:15 Labs: Laboratory Results - last 24 hr 11/03/24 11/03/24 11/03/24 11:08 11:20 12:53 WBC 31.8 H RBC 2.81 L Hgb 8.8 L Hct 27.5 L MCV 98 MCH 31.3 MCHC 32.0 RDW Std Deviation 61.3 H Plt Count 541 H Neut % (Auto) 82 H Lymph % (Auto) 9 L Butts % (Auto) 7 Eos % (Auto) 0 Baso % (Auto) 0 Neut # (Auto) 26.0 H Lymph # (Auto) 2.7 Butts # (Auto) 2.4 H Eos # (Auto) 0.0 Baso # (Auto) 0.1 Immature Gran # (Auto) 0.64 H Absolute Nucleated RBC 0.06 H Immature Gran % 2 H Nucleated RBC % 0 PT 15.4 H INR 1.4 H APTT 28.3 D-Dimer < 250 Puncture Site Right Radial ABG pH 7.35 ABG pCO2 21 L ABG pO2 193 H ABG HCO3 12 L ABG O2 Saturation 100 H ABG Base Excess -12 L VBG pH VBG pCO2 VBG pO2 VBG O2 Sat (Brayan) VBG Base Excess Carboxyhemoglobin FiO2 30 Sodium 146 H Potassium 5.0 Chloride 108 H Carbon Dioxide 12.8 L* Anion Gap 25 H BUN 53 H Creatinine 1.6 H Estim Creat Clear Calc 46.4 L eGFR 52 L BUN/Creatinine Ratio 33 H Glucose [address] Glu mg/dL Hemoglobin A1c Calculated Osmolality 306 H Lactic Acid 16.0 H* Calcium 8.9 Corrected Calcium 9.6 Phosphorus Magnesium 2.0 Total Bilirubin 1.2 AST 255 H ALT 81 H Alkaline Phosphatase 87 Ammonia Total Creatine Kinase Troponin I 4.326 H* 4.320 H* B-Natriuretic Peptide 2306 H* Total Protein 5.3 L Albumin 3.1 L Globulin 2.2 L Albumin/Globulin Ratio 1.4 Triglycerides Cholesterol LDL Cholesterol, Calc HDL Cholesterol Cholesterol/HDL Ratio Procalcitonin 1.93 H TSH Free T4 Ur Collection Type Urine Color Urine Clarity Urine pH Ur Specific [place] Urine Protein Urine Glucose (UA) Urine Ketones Urine Blood Urine Nitrite Urine Bilirubin Urine Urobilinogen (Auto) Ur Leukocyte Esterase Urine RBC Urine WBC Ur Squamous Epith Cells Urine Bacteria Hyaline Casts Ur Random Sodium Ur Random Potassium Ur Random Chloride Salicylates Urine Opiates Screen Urine Fentanyl Screen Ur Barbiturates Screen U Amphetamin/Meth Scrn U Benzodiazepines Scrn U Cocaine Metab Screen U Marijuana (THC) Screen Ethyl Alcohol Hepatitis A IgM Ab Hep Bs Antigen Hep B Core IgM Ab Hepatitis C Antibody 11/03/24 11/03/24 11/03/24 13:07 13:08 13:32 WBC RBC Hgb Hct MCV MCH MCHC RDW Std Deviation Plt Count Neut % (Auto) Lymph % (Auto) Butts % (Auto) Eos % (Auto) Baso % (Auto) Neut # (Auto) Lymph # (Auto) Butts # (Auto) Eos # (Auto) Baso # (Auto) Immature Gran # (Auto) Absolute Nucleated RBC Immature Gran % Nucleated RBC % PT INR APTT D-Dimer Puncture Site ABG pH ABG pCO2 ABG pO2 ABG HCO3 ABG O2 Saturation ABG Base Excess VBG pH VBG pCO2 VBG pO2 VBG O2 Sat (Brayan) VBG Base Excess Carboxyhemoglobin FiO2 Sodium Potassium Chloride Carbon Dioxide Anion Gap BUN Creatinine Estim Creat Clear Calc eGFR BUN/Creatinine Ratio Glucose Estimated Ave Glu mg/dL Hemoglobin A1c Calculated Osmolality Lactic Acid Calcium Corrected Calcium Phosphorus Magnesium Total Bilirubin AST ALT Alkaline Phosphatase Ammonia 79 H Total Creatine Kinase 570 H Troponin I B-Natriuretic Peptide Total Protein Albumin Globulin Albumin/Globulin Ratio Triglycerides 103 Cholesterol 113 L LDL Cholesterol, Calc 39 HDL Cholesterol 53 Cholesterol/HDL Ratio 2.1 L Procalcitonin TSH 1.66 Free T4 0.51 L Ur Collection Type Clean Catch Urine Color Yellow Urine Clarity Turbid A Urine pH 6.0 Ur Specific [place] 1.020 Urine Protein Trace Urine Glucose (UA) Negative Urine Ketones Trace Urine Blood Negative Urine Nitrite Negative Urine Bilirubin Negative Urine Urobilinogen (Auto) Negative Ur Leukocyte Esterase Negative Urine RBC 1 Urine WBC 2 Ur Squamous Epith Cells 0 Urine Bacteria Rare Hyaline Casts 3 H Ur Random Sodium < 15.0 L Ur Random Potassium 31 Ur Random Chloride < 20.0 L Salicylates < 3.0 Urine Opiates Screen Negative Urine Fentanyl Screen Negative Ur Barbiturates Screen Negative U Amphetamin/Meth Scrn Negative U Benzodiazepines Scrn Negative U Cocaine Metab Screen Negative U Marijuana (THC) Screen Negative Ethyl Alcohol < 3.0 Hepatitis A IgM Ab Hep Bs Antigen Hep B Core IgM Ab Hepatitis C Antibody 11/03/24 11/03/24 11/03/24 14:11 15:44 16:44 WBC RBC Hgb Hct MCV MCH MCHC RDW Std Deviation Plt Count Neut % (Auto) Lymph % (Auto) Butts % (Auto) Eos % (Auto) Baso % (Auto) Neut # (Auto) Lymph # (Auto) Butts # (Auto) Eos # (Auto) Baso # (Auto) Immature Gran # (Auto) Absolute Nucleated RBC Immature Gran % Nucleated RBC % PT INR APTT D-Dimer Puncture Site Right Radial ABG pH 7.34 L ABG pCO2 20 L ABG pO2 82 L D ABG HCO3 11 L ABG O2 Saturation 96 ABG Base Excess -14 L VBG pH VBG pCO2 VBG pO2 VBG O2 Sat (Brayan) VBG Base Excess Carboxyhemoglobin 3.1 H FiO2 92 Sodium Potassium Chloride Carbon Dioxide Anion Gap BUN Creatinine Estim Creat Clear Calc eGFR BUN/Creatinine Ratio Glucose Estimated Ave Glu mg/dL Hemoglobin A1c Calculated Osmolality Lactic Acid 13.1 H* Calcium Corrected Calcium Phosphorus Magnesium Total Bilirubin AST ALT Alkaline Phosphatase Ammonia Total Creatine Kinase Troponin I 3.783 H* D B-Natriuretic Peptide Total Protein Albumin Globulin Albumin/Globulin Ratio Triglycerides Cholesterol LDL Cholesterol, Calc HDL Cholesterol Cholesterol/HDL Ratio Procalcitonin TSH Free T4 Ur Collection Type Urine Color Urine Clarity Urine pH Ur Specific [place] Urine Protein Urine Glucose (UA) Urine Ketones Urine Blood Urine Nitrite Urine Bilirubin Urine Urobilinogen (Auto) Ur Leukocyte Esterase Urine RBC Urine WBC Ur Squamous Epith Cells Urine Bacteria Hyaline Casts Ur Random Sodium Ur Random Potassium Ur Random Chloride Salicylates Urine Opiates Screen Urine Fentanyl Screen Ur Barbiturates Screen U Amphetamin/Meth Scrn U Benzodiazepines Scrn U Cocaine Metab Screen U Marijuana (THC) Screen Ethyl Alcohol Hepatitis A IgM Ab Hep Bs Antigen Hep B Core IgM Ab Hepatitis C Antibody 11/03/24 11/04/24 11/04/24 17:06 00:00 00:11 WBC RBC Hgb Hct MCV MCH MCHC RDW Std Deviation Plt Count Neut % (Auto) Lymph % (Auto) Butts % (Auto) Eos % (Auto) Baso % (Auto) Neut # (Auto) Lymph # (Auto) Butts # (Auto) Eos # (Auto) Baso # (Auto) Immature Gran # (Auto) Absolute Nucleated RBC Immature Gran % Nucleated RBC % PT INR APTT 87.4 H D D-Dimer Puncture Site Right Radial ABG pH 7.20 L D ABG pCO2 45 D ABG pO2 78 L ABG HCO3 16 L ABG O2 Saturation 91 ABG Base Excess -12 L VBG pH 7.43 VBG pCO2 35 L VBG pO2 43 VBG O2 Sat (Brayan) 78 L VBG Base Excess -1 Carboxyhemoglobin FiO2 100 Sodium Potassium Chloride Carbon Dioxide Anion Gap BUN Creatinine Estim Creat Clear Calc eGFR BUN/Creatinine Ratio Glucose Estimated Ave Glu mg/dL Hemoglobin A1c Calculated Osmolality Lactic Acid Calcium Corrected Calcium Phosphorus Magnesium Total Bilirubin AST ALT Alkaline Phosphatase Ammonia Total Creatine Kinase Troponin I B-Natriuretic Peptide Total Protein Albumin Globulin Albumin/Globulin Ratio Triglycerides Cholesterol LDL Cholesterol, Calc HDL Cholesterol Cholesterol/HDL Ratio Procalcitonin TSH Free T4 Ur Collection Type Urine Color Urine Clarity Urine pH Ur Specific [place] Urine Protein Urine Glucose (UA) Urine Ketones Urine Blood Urine Nitrite Urine Bilirubin Urine Urobilinogen (Auto) Ur Leukocyte Esterase Urine RBC Urine WBC Ur Squamous Epith Cells Urine Bacteria Hyaline Casts Ur Random Sodium Ur Random Potassium Ur Random Chloride Salicylates Urine Opiates Screen Urine Fentanyl Screen Ur Barbiturates Screen U Amphetamin/Meth Scrn U Benzodiazepines Scrn U Cocaine Metab Screen U Marijuana (THC) Screen Ethyl Alcohol Hepatitis A IgM Ab Hep Bs Antigen Hep B Core IgM Ab Hepatitis C Antibody 11/04/24 11/04/24 11/04/24 04:29 04:46 05:15 WBC 31.4 H RBC 2.43 L Hgb 7.7 L Hct 22.6 L MCV 93 MCH 31.7 MCHC 34.1 RDW Std Deviation 58.3 H Plt Count 518 H Neut % (Auto) 84 H Lymph % (Auto) 10 Butts % (Auto) 6 Eos % (Auto) 0 Baso % (Auto) 0 Neut # (Auto) 26.2 H Lymph # (Auto) 3.2 Butts # (Auto) 1.8 H Eos # (Auto) 0.0 Baso # (Auto) 0.1 Immature Gran # (Auto) 0.13 H Absolute Nucleated RBC 0.16 H Immature Gran % 0 Nucleated RBC % 1 H PT 15.6 H INR 1.5 H APTT 74.6 H D D-Dimer Puncture Site Right Radial ABG pH 7.50 H D ABG pCO2 30 L D ABG pO2 109 H D ABG HCO3 23 ABG O2 Saturation 100 H ABG Base Excess 1 VBG pH 7.52 VBG pCO2 27 L VBG pO2 57 VBG O2 Sat (Brayan) 93 L D VBG Base Excess 0 Carboxyhemoglobin FiO2 45 Sodium 144 Potassium 4.1 D Chloride 110 H Carbon Dioxide 23.6 Anion Gap 10 BUN 49 H Creatinine 1.3 Estim Creat Clear Calc 52.1 L eGFR > 60 BUN/Creatinine Ratio 38 H Glucose [address] Glu mg/dL Cancelled Hemoglobin A1c Cancelled Calculated Osmolality 306 H Lactic Acid 3.5 H Calcium 7.6 L Corrected Calcium 8.5 Phosphorus 2.9 Magnesium 2.0 Total Bilirubin 0.7 D AST 392 H ALT 142 H Alkaline Phosphatase 70 Ammonia Total Creatine Kinase Troponin I B-Natriuretic Peptide Total Protein 5.0 L Albumin 2.9 L Globulin 2.1 L Albumin/Globulin Ratio 1.4 Triglycerides Cholesterol LDL Cholesterol, Calc HDL Cholesterol Cholesterol/HDL Ratio Procalcitonin 4.24 H TSH Free T4 Ur Collection Type Urine Color Urine Clarity Urine pH Ur Specific [place] Urine Protein Urine Glucose (UA) Urine Ketones Urine Blood Urine Nitrite Urine Bilirubin Urine Urobilinogen (Auto) Ur Leukocyte Esterase Urine RBC Urine WBC Ur Squamous Epith Cells Urine Bacteria Hyaline Casts Ur Random Sodium Ur Random Potassium Ur Random Chloride Salicylates Urine Opiates Screen Urine Fentanyl Screen Ur Barbiturates Screen U Amphetamin/Meth Scrn U Benzodiazepines Scrn U Cocaine Metab Screen U Marijuana (THC) Screen Ethyl Alcohol Hepatitis A IgM Ab Non Reactive Hep Bs Antigen Non Reactive Hep B Core IgM Ab Non Reactive Hepatitis C Antibody Non Reactive 11/04/24 11/04/24 05:15 09:05 WBC RBC Hgb Hct MCV MCH MCHC RDW Std Deviation Plt Count Neut % (Auto) Lymph % (Auto) Butts % (Auto) Eos % (Auto) Baso % (Auto) Neut # (Auto) Lymph # (Auto) Butts # (Auto) Eos # (Auto) Baso # (Auto) Immature Gran # (Auto) Absolute Nucleated RBC Immature Gran % Nucleated RBC % PT INR APTT 69.2 H D-Dimer Puncture Site ABG pH ABG pCO2 ABG pO2 ABG HCO3 ABG O2 Saturation ABG Base Excess VBG pH VBG pCO2 VBG pO2 VBG O2 Sat (Brayan) VBG Base Excess Carboxyhemoglobin FiO2 Sodium Potassium Chloride Carbon Dioxide Anion Gap BUN Creatinine Estim Creat Clear Calc eGFR BUN/Creatinine Ratio Glucose Estimated Ave Glu mg/dL Hemoglobin A1c Calculated Osmolality Lactic Acid Calcium Corrected Calcium Phosphorus Magnesium Total Bilirubin AST ALT Alkaline Phosphatase Ammonia Total Creatine Kinase Troponin I B-Natriuretic Peptide Total Protein Albumin Globulin Albumin/Globulin Ratio Triglycerides Cholesterol LDL Cholesterol, Calc HDL Cholesterol Cholesterol/HDL Ratio Procalcitonin Cancelled TSH Free T4 Ur Collection Type Urine Color Urine Clarity Urine pH Ur Specific [place] Urine Protein Urine Glucose (UA) Urine Ketones Urine Blood Urine Nitrite Urine Bilirubin Urine Urobilinogen (Auto) Ur Leukocyte Esterase Urine RBC Urine WBC Ur Squamous Epith Cells Urine Bacteria Hyaline Casts Ur Random Sodium Ur Random Potassium Ur Random Chloride Salicylates Urine Opiates Screen Urine Fentanyl Screen Ur Barbiturates Screen U Amphetamin/Meth Scrn U Benzodiazepines Scrn U Cocaine Metab Screen U Marijuana (THC) Screen Ethyl Alcohol Hepatitis A IgM Ab Hep Bs Antigen Hep B Core IgM Ab Hepatitis C Antibody ABG Interpretation ABG results: 11/03/24 11/03/24 11/03/24 11:20 14:11 17:06 ABG pH 7.35 7.34 L 7.20 L D ABG pCO2 21 L 20 L 45 D ABG pO2 193 H 82 L D 78 L ABG HCO3 12 L 11 L 16 L ABG O2 Saturation 100 H 96 91 ABG Base Excess -12 L -14 L -12 L VBG pH VBG pCO2 VBG pO2 VBG Base Excess 11/04/24 11/04/24 11/04/24 00:00 04:29 05:15 ABG pH 7.50 H D ABG pCO2 30 L D ABG pO2 109 H D ABG HCO3 23 ABG O2 Saturation 100 H ABG Base Excess 1 VBG pH 7.43 7.52 VBG pCO2 35 L 27 L VBG pO2 43 57 VBG Base Excess -1 0 Quality Measures Quality Measures sepsis Current suspected stage: septic shock (LA >4 and/or hypotension) IVF 30 ml/kg given for lactic acid >4 and/or hypotension: yes Vasopressors initiated: Yes Sepsis reassessment completed at (date): 11/04/24 Sepsis reassessment completed at (time): 17:03 Possible source: pulmonary Blood cultures ordered: completed in ED Antibiotic ordered: Yes Assessment & Plan Assessment Current Active Medications: Generic Name Dose Route Start Last Admin Trade Name Freq PRN Reason Stop Dose Admin Acetaminophen 650 mg 11/03/24 15:32 Acetaminophen 325 Mg Tablet PO 12/03/24 15:31 Q6H PRN Fever >101.5 Aspirin 81 mg 11/04/24 09:00 11/04/24 08:48 Aspirin 81 Mg Chew GT 12/04/24 08:59 81 mg QDAY BETO Administration Atorvastatin Calcium 40 mg 11/03/24 21:00 11/03/24 21:08 Atorvastatin Calcium 20 Mg Tablet PO 12/03/24 20:59 Not Given HS BETO Folic Acid 1 mg 11/04/24 09:15 11/04/24 09:37 Folic Acid Inj 1 Mg/0.2 Ml IVP 12/04/24 09:14 1 mg QDAY BETO Administration Hydrocortisone Sodium Succinate 50 mg 11/04/24 12:00 Hydrocortisone Sod Succ Inj 100 Mg Vial IV 12/04/24 11:59 Q6HR BETO Propofol 1,000 mg in 100 mls @ 1.802 mls/hr 11/03/24 13:48 11/04/24 09:00 Diprivan Ivpb IV 12/03/24 13:47 15 mcg/kg/min .Q24H PRN 5.405 mls/hr PER PROTOCOL Titration Protocol 5 MCG/KG/MIN Norepinephrine/Dextrose 8 mg in 250 mls @ 5.63 mls/hr 11/03/24 14:57 11/04/24 09:30 Levophed In D5w 8mg/250ml IV 12/03/24 14:56 0.15 mcg/kg/min .Q24H PRN 16.891 mls/hr PER PROTOCOL Titration Protocol 0.05 MCG/KG/MIN Fentanyl Citrate 2,500 mcg in 250 mls @ 2.5 mls/hr 11/03/24 15:27 11/04/24 09:00 Sublimaze Inj 2,500 Mcg/250 Ml Bag IV 11/08/24 15:26 50 mcg/hr .Q24H PRN 5 mls/hr PER PROTOCOL Titration Protocol 25 MCG/HR Piperacillin/Tazobactam/Dextrose 3.375 gm in 50 mls @ 12.5 mls/hr 11/03/24 22:00 11/04/24 05:26 Zosyn IV 11/10/24 21:59 12.5 mls/hr Q8HR BETO Administration Vancomycin/Sodium Chloride 200 mls @ 200 mls/hr 11/04/24 17:00 Vancomycin/Ns 1 Gm Ivpb IV 11/11/24 16:59 Q24H BETO Heparin Sodium/Dextrose 25,000 unit in 250 mls @ 6.576 mls/hr 11/03/24 18:30 11/04/24 03:00 Heparin In D5w Ivpb IV 11/17/24 15:44 10 units/kg/hr .Q24H BETO 5.48 mls/hr Titration Protocol 12 UNITS/KG/HR Vasopressin/Sodium Chloride 20 unit in 100 mls @ 9 mls/hr 11/03/24 18:37 11/04/24 09:00 Vasostrict/Ns Ivpb IV 12/03/24 18:36 0.03 unit/min .Q11H7M PRN 9 mls/hr PER PROTOCOL Titration Protocol 0.03 UNIT/MIN Phenylephrine HCl 40 mg/ 100 mls @ 4.095 mls/hr 11/04/24 09:04 Sodium Chloride IV 12/04/24 09:03 .Q24H PRN Per Sepsis Protocol Protocol 0.5 MCG/KG/MIN Midazolam HCl 2 mg 11/03/24 17:56 11/03/24 18:07 Midazolam Inj 1 Mg/Ml Vial 2 Ml IVP 11/08/24 17:59 2 mg Q2HR PRN Administration Anxiety or Agitation Ondansetron HCl 4 mg 11/03/24 15:32 Ondansetron Inj 2 Mg/Ml Inj 2 Ml IVP 12/03/24 15:31 Q6H PRN NAUSEA OR VOMITING Protocol Pantoprazole Sodium 40 mg 11/03/24 16:29 11/04/24 08:48 Pantoprazole Inj 40 Mg Vial IVP 12/03/24 15:44 40 mg QDAY [facility] Administration Pharmacy Consult 1 each 11/03/24 15:45 Vancomycin Pharmacy To Dose 1 Each Each IV 12/03/24 15:44 QDAY PRN rx Sennosides 1 tab 11/04/24 09:00 11/04/24 08:48 Senna Tablet PO 12/04/24 08:59 1 tab QDAY BETO Administration Protocol Sodium Chloride 3 ml 11/03/24 10:58 Sodium Chloride Rt Anastacia 0.9% 3 Ml Nebu INH 12/03/24 10:57 PRN PRN SOLN Thiamine HCl 200 mg 11/04/24 09:15 11/04/24 09:37 Thiamine Inj 100 Mg/Ml Vial 2 Ml IVP 11/09/24 09:14 200 mg BID BETO Administration Plan Summary: Mr. Trejo is a 49-year-old male with past medical history of hypertension and personal history of esophageal cancer status post-treatment in remission who presented to [facility] emergency department on 11/03/2024 with a chief complaint of weakness and shortness of breath. Neurological Patient A&O x 3 on presentation, currently is intubated and sedated. -Continue sedation with propofol and fentanyl, RASS score -2 Cardiology #Distributive shock likely septic secondary to pneumonia Differential diagnosis: -Distributive shock: Likely septic in setting of severe pneumonia, patient had significantly elevated lactate on presentation, Pro-Jonny elevated. -Obstructive shock: Patient has severe mitral regurgitation, some evidence of LVOT obstruction ?Secondary to sigmoid septum and the hypercontractile basal ventricular wall, CTA chest negative for PE, chest x-ray negative for pneumothorax -Cardiogenic shock: Bedside echocardiogram shows apical hypokinesis, formal echo shows apical akinesis, heart failure with reduced ejection fraction -Hypovolemic/hemorrhagic shock, ruled out: Low suspicion patient has no active bleeding, no suspicion of hypovolemia Diagnostic workup: -Lactate on presentation 16, patient has high anion gap metabolic acidosis, Pro- Jonny 1.93 -CTA chest abdomen pelvis shows mild heart failure, significant right lung and left base pneumonia, cirrhosis, large right inguinal hernia -ECHO 11/03: Normal LV size and moderate LV systolic dysfunction with an EF of 35 to 40%. Apical akinesis with hypokinesis of the mid to apical anterior, anterolateral and apical septal segments indicating possible Takotsubo syndrome versus LAD involvement. RV Normal in size and function. 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 Severe LA dilatation. Trace AI Moderate TR with mild RA dilatation. No Pericardial Effusion. IVC not well-visualized Treatment: -Continue IV Zosyn and vancomycin (11/03- -started on phenylephrine, titrate down vasopressin and optimize pressor requirement, primary pressor Levophed, secondary phenylephrine, titrate MAP goal greater than 65 -Follow limited echocardiogram -Stress dose steroids, hydrocortisone 50 every 6 hours -Patient seems euvolemic for now, hold IV fluids versus diuresis -Troponin down trended -Lactate down trended, lactate this morning 2.5 Follow-up: -Follow lactate -Wean off pressors as tolerated -Will consider PABLITO, to assess heart morphology #ACS workup-likely NSTEMI type II #Elevated troponin #T wave inversion in EKG Differential diagnosis: NSTEMI type I, NSTEMI type II demand ischemia in setting of shock, Takotsubo syndrome Diagnostic workup: -Patient had troponin elevation of 4.326 on presentation, EKG done multiple times shows T wave inversion in V3-V6, lead II -Patient does not have any cardiac chest pain, though does report a fluttering in the chest, recent stressor patient is looking for a job -Bedside echocardiogram showed apical akinesis/hypokinesis, cardiology consulted in the ED -ECHO 11/03: Normal LV size and moderate LV systolic dysfunction with an EF of 35 to 40%. Apical akinesis with hypokinesis of the mid to apical anterior, anterolateral and apical septal segments indicating possible Takotsubo syndrome versus LAD involvement. RV Normal in size and function. 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 Severe LA dilatation. Trace AI Moderate TR with mild RA dilatation. No Pericardial Effusion. IVC not well-visualized Treatment: -Received aspirin loading dose, aspirin daily -Heparin GTT -Cardiology consulted, appreciate recommendations -Troponin downtrended -Consider cardiac cath once stable Follow-up: - Follow limited echocardiogram #Heart failure with reduced ejection fraction, EF 35 to 40% #Moderate LV systolic dysfunction, apical akinesis #Moderate to severe eccentric MR, #?ABBI, LVOT obstruction, sigmoid septum Differential diagnosis: LAD occlusion, Takotsubo syndrome Diagnostic workup: -ECHO 11/03: Normal LV size and moderate LV systolic dysfunction with an EF of 35 to 40%. Apical akinesis with hypokinesis of the mid to apical anterior, anterolateral and apical septal segments indicating possible Takotsubo syndrome versus LAD involvement. RV Normal in size and function. 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 Severe LA dilatation. Trace AI Moderate TR with mild RA dilatation. No Pericardial Effusion. IVC not well-visualized - CTA chest does show mild heart failure, chest x-ray in ED did show bilateral pneumonia versus heart failure. Treatment: -Patient was given Lasix 20 IV x 1, IV fluids in ED -Currently patient seems euvolemic, will hold IV fluids/Lasix Follow-up: - Follow limited echocardiogram Pulmonary #Acute hypoxic respiratory failure secondary to pneumonia, respiratory failure in setting of shock Differential diagnosis: Pneumonia, increased metabolic demand in setting of shock, increased work of breathing Diagnostic workup: -Initial ABG shows pH 7.35, pCO2 21, pO2 193, bicarb 12, patient on high flow nasal cannula in ED, significantly tachypneic, increased work of breathing, respiratory rate in 40s, accessory muscle use noted. -Patient does have underlying shock, significantly elevated lactate, Pro-Jonny elevated, CTA shows severe right-sided pneumonia and left base pneumonia Treatment: -Goal tidal volumes 320mL for lung protective 4 to 6 cc/kg, will down titrate as tolerated -Monitor end-tidal CO2, if end-tidal CO2 greater than 35 consider VBG -On mechanical ventilation, volume control -Optimize settings per blood gas Follow-up: - Follow VBG as needed #Pneumonia Differential diagnosis: Aspiration pneumonia, community-acquired pneumonia Diagnostic workup: -Patient denies any sick contacts, although CTA shows significant right-sided pneumonia and left base pneumonia -Does have history of esophageal cancer in remission, suspicion of aspiration secondary to dysphagia -Bedside flu, COVID negative, cocci IgM negative Treatment: -Continue IV Zosyn and vancomycin -Follow cultures, Legionella Follow-up: - Follow results Gastrointestinal #Transaminitis Differential diagnosis: Alcohol use, ischemic liver injury, hepatic congestion, viral hepatitis, NAFLD Diagnostic workup: -CTA abdomen shows evidence of cirrhosis, clinically no thrombocytopenia, INR on presentation 1.4, albumin on presentation 3.1. No ascites noted low clinical suspicion of cirrhosis -Urine tox screen negative, blood alcohol level negative, salicylate level negative -Patient does have social factors, was unemployed, AST ALT pattern greater than 2 is to 1 - Hepatitis panel unremarkable Treatment: - IV thiamine twice daily - IV folate daily - Follow liver panel in a.m. Follow-up: -Follow CMP in a.m. #Personal history of esophageal cancer, in remission #Dark stool Differential diagnosis: Patient is status post esophagectomy, currently low clinical suspicion of GI bleed Diagnostic workup: -Patient reported self history of esophageal cancer reports completed treatment heart disease in remission -NG tube placed by gastroenterology -History of esophagectomy, there is suspicion of underlying dysphagia -Patient had large dark bowel movement 11/04, hemoglobin down trended as well, no active bleeding as of now Treatment: -GI consulted to place NG tube -Consider GI workup if patient has dark/bloody stools -Continue IV Protonix daily -Patient will benefit from speech therapy referral once extubated Follow-up: - Monitor bowel movement - Started on tube feeds, will advance to goal #Large right inguinal hernia #Dilated bowel loops Differential diagnosis: Incarcerated hernia, ileus Diagnostic workup: -CTA abdomen pelvis shows dilated bowel loops, there is a large right inguinal hernia noted on imaging as well -On physical exam hernia is reducible, low suspicion of incarceration Treatment: -General Surgery consulted, appreciate recommendations Follow-up: - Follow-up with general surgery and gastroenterology Renal/Genitourinary #Acute kidney injury, improving Differential diagnosis: Prerenal, renal in setting of shock, low suspicion of cardiorenal Diagnostic workup: -Patient on presentation had acute kidney injury, creatinine 1.6,BUN 53, patient has good urine output had about 800 cc since admission. -Urine sodium less than 15, potassium 31, chloride less than 20-after 2 L IV fluid Treatment: - Patient was given Lasix 20 IV x 1, 2 L fluid in ED Follow-up: - Follow renal function in a.m. - Monitor urine output #Hypernatremia, resolved Differential diagnosis: Hypovolemic hyponatremia Diagnostic workup: -Sodium 146 on presentation, was given 2 L in ED -Urine sodium less than 15 Treatment: - Was given IV fluid in ED Follow-up: - Follow sodium in a.m. #Lactic acidosis, resolving #High anion gap metabolic acidosis Differential diagnosis: In setting of shock/sepsis Diagnostic workup: -Lactate 16 on presentation, down trended with IV fluid last 13.1 Treatment: -Continue pressor support Follow-up: - Follow lactic Endocrine No active problems Hematology #Leukocytosis Diagnostic workup: -Significantly elevated WBC count on presentation Treatment: -Follow CBC in a.m., likely in setting of sepsis #Normocytic normochromic anemia Differential diagnosis: Nutritional deficiency, in the setting of sepsis, low suspicion of hemolysis Diagnostic workup: -Hemoglobin 8.1 on presentation Treatment: -Follow CBC in a.m., will consider further workup #Thrombocytosis Diagnostic workup: -Platelet count significantly elevated on presentation Treatment: -Received IV fluids Follow-up: - Follow CBC in a.m. Infectious Disease #Pneumonia #Bacteriuria - Follow cultures, treatment as above Integumentary No active problems DVT prophylaxis: Heparin drip GI prophylaxis: IV Protonix Diet: NG tube feeds, vital AF Tubes: Endotracheal tube Lines: Peripheral IV, right IJ triple-lumen Code status: Full code Case discussed with Attending Dr. Diaz. Dom Darby MD Internal medicine PGY2 Disclaimer: This note was dictated by speech recognition. Minor errors in compliance tester may be present due to voice recognition software.
[2024-11-04 10:27] LABS: Reflex Lactate? Y
[2024-11-04 10:35] LABS: Lactic Acid, 3 HR 2.5 mMol/L (0.4-2.0)
[2024-11-04] MEDS: PHENYLEPHRINE HCL 40 MG in SODIUM CHLORIDE 0.9% 96 ML 4.095 MG IV (10:37)
[2024-11-04] MEDS: HYDROCORTISONE SOD SUCC INJ 100 MG VIAL 50 MG IV ×3 (12:01→23:51)
[2024-11-04 12:10] LABS: Cocci Serology, IgM Negative (Negative)
--- NOTE | 2024-11-04 12:43 | ESPR_ITS ---
Documentation for date of: 11/04/24 Subjective Subjective Interval history: The patient was seen and examined at the bedside this morning. Continues to be sedated, intubated and mechanically ventilated. Continues to be in pressor support. Avoid inotropic's pressor support. Significant improvement in lactic acid level to 2.5 from 16 yesterday. White count still elevated at 31.4, with hemoglobin 7.7. Improvement in pH and bicarb. Creatinine improved to 1.3 from 1.6 yesterday. Repeat chest x-ray still suggestive of significant bilateral pneumonia. TTE prelim read was significant for improvement in LVEF with improvement in apical akinesis. Diuretics and IV fluids as needed depending on the patient's fluid status. Exam Vital Signs Temp Pulse Resp BP Pulse Ox O2 Del Method O2 Flow Rate 99.1 F 100 30 H 96/59 L 100 Mechanical Ventilation 65 11/04/24 08:00 11/04/24 11:15 11/03/24 17:45 11/04/24 11:15 11/04/24 11:15 11/04/24 08:00 11/04/24 00:00 FiO2 330 11/04/24 11:06 Narrative Exam General: No acute distress, sedated, intubated and mechanically ventilated HEENT: Moist mucous membranes, oropharynx clear Neck: Supple, No masses, No JVD CVS: S1S2 Regular rate and rhythm, No murmurs, rubs or gallops Lungs: Mild wheezing throughout the lung field, rhonchi appreciated throughout the lung field, mild bibasilar crackles appreciated Abd: Soft, NT/ND, +BS, hepatomegaly appreciated Ext: No edema, warm and well perfused Skin: No rash Psych: Unable to obtain Objective Labs 11/05/24 04:25 11/05/24 04:25 Labs: Laboratory Results - last 24 hr 11/03/24 11/03/24 11/03/24 12:53 13:07 13:08 WBC RBC Hgb Hct MCV MCH MCHC RDW Std Deviation Plt Count Neut % (Auto) Lymph % (Auto) [place] % (Auto) Eos % (Auto) Baso % (Auto) Neut # (Auto) Lymph # (Auto) [place] # (Auto) Eos # (Auto) Baso # (Auto) Immature Gran # (Auto) Absolute Nucleated RBC Immature Gran % Nucleated RBC % PT INR APTT Puncture Site ABG pH ABG pCO2 ABG pO2 ABG HCO3 ABG O2 Saturation ABG Base Excess VBG pH VBG pCO2 VBG pO2 VBG O2 Sat (Brayan) VBG Base Excess Carboxyhemoglobin FiO2 Sodium Potassium Chloride Carbon Dioxide Anion Gap BUN Creatinine Estim Creat Clear Calc eGFR BUN/Creatinine Ratio Glucose Estimated Ave Glu mg/dL Hemoglobin A1c Calculated Osmolality Lactic Acid Calcium Corrected Calcium Phosphorus Magnesium Total Bilirubin AST ALT Alkaline Phosphatase Ammonia Total Creatine Kinase Troponin I 4.320 H* Total Protein Albumin Globulin Albumin/Globulin Ratio Triglycerides Cholesterol LDL Cholesterol, Calc HDL Cholesterol Cholesterol/HDL Ratio Procalcitonin TSH Free T4 Ur Collection Type Clean Catch Urine Color Yellow Urine Clarity Turbid A Urine pH 6.0 Ur Specific Success 1.020 Urine Protein Trace Urine Glucose (UA) Negative Urine Ketones Trace Urine Blood Negative Urine Nitrite Negative Urine Bilirubin Negative Urine Urobilinogen (Auto) Negative Ur Leukocyte Esterase Negative Urine RBC 1 Urine WBC 2 Ur Squamous Epith Cells 0 Urine Bacteria Rare Hyaline Casts 3 H Ur Random Sodium < 15.0 L Ur Random Potassium 31 Ur Random Chloride < 20.0 L Salicylates Urine Opiates Screen Negative Urine Fentanyl Screen Negative Ur Barbiturates Screen Negative U Amphetamin/Meth Scrn Negative U Benzodiazepines Scrn Negative U Cocaine Metab Screen Negative U Marijuana (THC) Screen Negative Ethyl Alcohol Coccidioides IgM Ab Hepatitis A IgM Ab Hep Bs Antigen Hep B Core IgM Ab Hepatitis C Antibody 11/03/24 11/03/24 11/03/24 13:32 14:11 15:44 WBC RBC Hgb Hct MCV MCH MCHC RDW Std Deviation Plt Count Neut % (Auto) Lymph % (Auto) [place] % (Auto) Eos % (Auto) Baso % (Auto) Neut # (Auto) Lymph # (Auto) [place] # (Auto) Eos # (Auto) Baso # (Auto) Immature Gran # (Auto) Absolute Nucleated RBC Immature Gran % Nucleated RBC % PT INR APTT Puncture Site Right Radial ABG pH 7.34 L ABG pCO2 20 L ABG pO2 82 L D ABG HCO3 11 L ABG O2 Saturation 96 ABG Base Excess -14 L VBG pH VBG pCO2 VBG pO2 VBG O2 Sat (Brayan) VBG Base Excess Carboxyhemoglobin FiO2 92 Sodium Potassium Chloride Carbon Dioxide Anion Gap BUN Creatinine Estim Creat Clear Calc eGFR BUN/Creatinine Ratio Glucose Estimated Ave Glu mg/dL Hemoglobin A1c Calculated Osmolality Lactic Acid 13.1 H* Calcium Corrected Calcium Phosphorus Magnesium Total Bilirubin AST ALT Alkaline Phosphatase Ammonia 79 H Total Creatine Kinase 570 H Troponin I 3.783 H* D Total Protein Albumin Globulin Albumin/Globulin Ratio Triglycerides 103 Cholesterol 113 L LDL Cholesterol, Calc 39 HDL Cholesterol 53 Cholesterol/HDL Ratio 2.1 L Procalcitonin TSH 1.66 Free T4 0.51 L Ur Collection Type Urine Color Urine Clarity Urine pH Ur Specific Success Urine Protein Urine Glucose (UA) Urine Ketones Urine Blood Urine Nitrite Urine Bilirubin Urine Urobilinogen (Auto) Ur Leukocyte Esterase Urine RBC Urine WBC Ur Squamous Epith Cells Urine Bacteria Hyaline Casts Ur Random Sodium Ur Random Potassium Ur Random Chloride Salicylates < 3.0 Urine Opiates Screen Urine Fentanyl Screen Ur Barbiturates Screen U Amphetamin/Meth Scrn U Benzodiazepines Scrn U Cocaine Metab Screen U Marijuana (THC) Screen Ethyl Alcohol < 3.0 Coccidioides IgM Ab Negative Hepatitis A IgM Ab Hep Bs Antigen Hep B Core IgM Ab Hepatitis C Antibody 11/03/24 11/03/24 11/04/24 16:44 17:06 00:00 WBC RBC Hgb Hct MCV MCH MCHC RDW Std Deviation Plt Count Neut % (Auto) Lymph % (Auto) [place] % (Auto) Eos % (Auto) Baso % (Auto) Neut # (Auto) Lymph # (Auto) [place] # (Auto) Eos # (Auto) Baso # (Auto) Immature Gran # (Auto) Absolute Nucleated RBC Immature Gran % Nucleated RBC % PT INR APTT Puncture Site Right Radial ABG pH 7.20 L D ABG pCO2 45 D ABG pO2 78 L ABG HCO3 16 L ABG O2 Saturation 91 ABG Base Excess -12 L VBG pH 7.43 VBG pCO2 35 L VBG pO2 43 VBG O2 Sat (Brayan) 78 L VBG Base Excess -1 Carboxyhemoglobin 3.1 H FiO2 100 Sodium Potassium Chloride Carbon Dioxide Anion Gap BUN Creatinine Estim Creat Clear Calc eGFR BUN/Creatinine Ratio Glucose Estimated Ave Glu mg/dL Hemoglobin A1c Calculated Osmolality Lactic Acid Calcium Corrected Calcium Phosphorus Magnesium Total Bilirubin AST ALT Alkaline Phosphatase Ammonia Total Creatine Kinase Troponin I Total Protein Albumin Globulin Albumin/Globulin Ratio Triglycerides Cholesterol LDL Cholesterol, Calc HDL Cholesterol Cholesterol/HDL Ratio Procalcitonin TSH Free T4 Ur Collection Type Urine Color Urine Clarity Urine pH Ur Specific Success Urine Protein Urine Glucose (UA) Urine Ketones Urine Blood Urine Nitrite Urine Bilirubin Urine Urobilinogen (Auto) Ur Leukocyte Esterase Urine RBC Urine WBC Ur Squamous Epith Cells Urine Bacteria Hyaline Casts Ur Random Sodium Ur Random Potassium Ur Random Chloride Salicylates Urine Opiates Screen Urine Fentanyl Screen Ur Barbiturates Screen U Amphetamin/Meth Scrn U Benzodiazepines Scrn U Cocaine Metab Screen U Marijuana (THC) Screen Ethyl Alcohol Coccidioides IgM Ab Hepatitis A IgM Ab Hep Bs Antigen Hep B Core IgM Ab Hepatitis C Antibody 11/04/24 11/04/24 11/04/24 00:11 04:29 04:46 WBC RBC Hgb Hct MCV MCH MCHC RDW Std Deviation Plt Count Neut % (Auto) Lymph % (Auto) [place] % (Auto) Eos % (Auto) Baso % (Auto) Neut # (Auto) Lymph # (Auto) [place] # (Auto) Eos # (Auto) Baso # (Auto) Immature Gran # (Auto) Absolute Nucleated RBC Immature Gran % Nucleated RBC % PT INR APTT 87.4 H D Puncture Site Right Radial ABG pH 7.50 H D ABG pCO2 30 L D ABG pO2 109 H D ABG HCO3 23 ABG O2 Saturation 100 H ABG Base Excess 1 VBG pH VBG pCO2 VBG pO2 VBG O2 Sat (Brayan) VBG Base Excess Carboxyhemoglobin FiO2 45 Sodium Potassium Chloride Carbon Dioxide Anion Gap BUN Creatinine Estim Creat Clear Calc eGFR BUN/Creatinine Ratio Glucose Estimated Ave Glu mg/dL Cancelled Hemoglobin A1c Cancelled Calculated Osmolality Lactic Acid Calcium Corrected Calcium Phosphorus Magnesium Total Bilirubin AST ALT Alkaline Phosphatase Ammonia Total Creatine Kinase Troponin I Total Protein Albumin Globulin Albumin/Globulin Ratio Triglycerides Cholesterol LDL Cholesterol, Calc HDL Cholesterol Cholesterol/HDL Ratio Procalcitonin TSH Free T4 Ur Collection Type Urine Color Urine Clarity Urine pH Ur Specific Success Urine Protein Urine Glucose (UA) Urine Ketones Urine Blood Urine Nitrite Urine Bilirubin Urine Urobilinogen (Auto) Ur Leukocyte Esterase Urine RBC Urine WBC Ur Squamous Epith Cells Urine Bacteria Hyaline Casts Ur Random Sodium Ur Random Potassium Ur Random Chloride Salicylates Urine Opiates Screen Urine Fentanyl Screen Ur Barbiturates Screen U Amphetamin/Meth Scrn U Benzodiazepines Scrn U Cocaine Metab Screen U Marijuana (THC) Screen Ethyl Alcohol Coccidioides IgM Ab Hepatitis A IgM Ab Non Reactive Hep Bs Antigen Non Reactive Hep B Core IgM Ab Non Reactive Hepatitis C Antibody Non Reactive 11/04/24 11/04/24 11/04/24 05:15 05:15 09:05 WBC 31.4 H RBC 2.43 L Hgb 7.7 L Hct 22.6 L MCV 93 MCH 31.7 MCHC 34.1 RDW Std Deviation 58.3 H Plt Count 518 H Neut % (Auto) 84 H Lymph % (Auto) 10 [place] % (Auto) 6 Eos % (Auto) 0 Baso % (Auto) 0 Neut # (Auto) 26.2 H Lymph # (Auto) 3.2 [place] # (Auto) 1.8 H Eos # (Auto) 0.0 Baso # (Auto) 0.1 Immature Gran # (Auto) 0.13 H Absolute Nucleated RBC 0.16 H Immature Gran % 0 Nucleated RBC % 1 H PT 15.6 H INR 1.5 H APTT 74.6 H D 69.2 H Puncture Site ABG pH ABG pCO2 ABG pO2 ABG HCO3 ABG O2 Saturation ABG Base Excess VBG pH 7.52 VBG pCO2 27 L VBG pO2 57 VBG O2 Sat (Brayan) 93 L D VBG Base Excess 0 Carboxyhemoglobin FiO2 Sodium 144 Potassium 4.1 D Chloride 110 H Carbon Dioxide 23.6 Anion Gap 10 BUN 49 H Creatinine 1.3 Estim Creat Clear Calc 52.1 L eGFR > 60 BUN/Creatinine Ratio 38 H Glucose [address] Glu mg/dL Hemoglobin A1c Calculated Osmolality 306 H Lactic Acid 3.5 H Calcium 7.6 L Corrected Calcium 8.5 Phosphorus 2.9 Magnesium 2.0 Total Bilirubin 0.7 D AST 392 H ALT 142 H Alkaline Phosphatase 70 Ammonia Total Creatine Kinase Troponin I Total Protein 5.0 L Albumin 2.9 L Globulin 2.1 L Albumin/Globulin Ratio 1.4 Triglycerides Cholesterol LDL Cholesterol, Calc HDL Cholesterol Cholesterol/HDL Ratio Procalcitonin 4.24 H Cancelled TSH Free T4 Ur Collection Type Urine Color Urine Clarity Urine pH Ur Specific Success Urine Protein Urine Glucose (UA) Urine Ketones Urine Blood Urine Nitrite Urine Bilirubin Urine Urobilinogen (Auto) Ur Leukocyte Esterase Urine RBC Urine WBC Ur Squamous Epith Cells Urine Bacteria Hyaline Casts Ur Random Sodium Ur Random Potassium Ur Random Chloride Salicylates Urine Opiates Screen Urine Fentanyl Screen Ur Barbiturates Screen U Amphetamin/Meth Scrn U Benzodiazepines Scrn U Cocaine Metab Screen U Marijuana (THC) Screen Ethyl Alcohol Coccidioides IgM Ab Hepatitis A IgM Ab Hep Bs Antigen Hep B Core IgM Ab Hepatitis C Antibody 11/04/24 09:50 WBC RBC Hgb Hct MCV MCH MCHC RDW Std Deviation Plt Count Neut % (Auto) Lymph % (Auto) [place] % (Auto) Eos % (Auto) Baso % (Auto) Neut # (Auto) Lymph # (Auto) [place] # (Auto) Eos # (Auto) Baso # (Auto) Immature Gran # (Auto) Absolute Nucleated RBC Immature Gran % Nucleated RBC % PT INR APTT Puncture Site ABG pH ABG pCO2 ABG pO2 ABG HCO3 ABG O2 Saturation ABG Base Excess VBG pH VBG pCO2 VBG pO2 VBG O2 Sat (Brayan) VBG Base Excess Carboxyhemoglobin FiO2 Sodium Potassium Chloride Carbon Dioxide Anion Gap BUN Creatinine Estim Creat Clear Calc eGFR BUN/Creatinine Ratio Glucose Estimated Ave Glu mg/dL Hemoglobin A1c Calculated Osmolality Lactic Acid 2.5 H Calcium Corrected Calcium Phosphorus Magnesium Total Bilirubin AST ALT Alkaline Phosphatase Ammonia Total Creatine Kinase Troponin I Total Protein Albumin Globulin Albumin/Globulin Ratio Triglycerides Cholesterol LDL Cholesterol, Calc HDL Cholesterol Cholesterol/HDL Ratio Procalcitonin TSH Free T4 Ur Collection Type Urine Color Urine Clarity Urine pH Ur Specific Success Urine Protein Urine Glucose (UA) Urine Ketones Urine Blood Urine Nitrite Urine Bilirubin Urine Urobilinogen (Auto) Ur Leukocyte Esterase Urine RBC Urine WBC Ur Squamous Epith Cells Urine Bacteria Hyaline Casts Ur Random Sodium Ur Random Potassium Ur Random Chloride Salicylates Urine Opiates Screen Urine Fentanyl Screen Ur Barbiturates Screen U Amphetamin/Meth Scrn U Benzodiazepines Scrn U Cocaine Metab Screen U Marijuana (THC) Screen Ethyl Alcohol Coccidioides IgM Ab Hepatitis A IgM Ab Hep Bs Antigen Hep B Core IgM Ab Hepatitis C Antibody ABG Interpretation ABG results: 11/03/24 11/03/24 11/03/24 11:20 14:11 17:06 ABG pH 7.35 7.34 L 7.20 L D ABG pCO2 21 L 20 L 45 D ABG pO2 193 H 82 L D 78 L ABG HCO3 12 L 11 L 16 L ABG O2 Saturation 100 H 96 91 ABG Base Excess -12 L -14 L -12 L VBG pH VBG pCO2 VBG pO2 VBG Base Excess 11/04/24 11/04/24 11/04/24 00:00 04:29 05:15 ABG pH 7.50 H D ABG pCO2 30 L D ABG pO2 109 H D ABG HCO3 23 ABG O2 Saturation 100 H ABG Base Excess 1 VBG pH 7.43 7.52 VBG pCO2 35 L 27 L VBG pO2 43 57 VBG Base Excess -1 0 Quality Measures Quality Measures sepsis Current suspected stage: septic shock (LA >4 and/or hypotension) Sepsis reassessment completed at (date): 11/04/24 Sepsis reassessment completed at (time): 21:23 Possible source: pulmonary Blood cultures ordered: completed in ED Antibiotic ordered: Yes Assessment & Plan Assessment Current Active Medications: Generic Name Dose Route Start Last Admin Trade Name Freq PRN Reason Stop Dose Admin Acetaminophen 650 mg 11/03/24 15:32 Acetaminophen 325 Mg Tablet PO 12/03/24 15:31 Q6H PRN Fever >101.5 Aspirin 81 mg 11/04/24 09:00 11/04/24 08:48 Aspirin 81 Mg Chew GT 12/04/24 08:59 81 mg QDAY BETO Administration Atorvastatin Calcium 40 mg 11/03/24 21:00 11/03/24 21:08 Atorvastatin Calcium 20 Mg Tablet PO 12/03/24 20:59 Not Given HS BETO Folic Acid 1 mg 11/04/24 09:15 11/04/24 09:37 Folic Acid Inj 1 Mg/0.2 Ml IVP 12/04/24 09:14 1 mg QDAY BETO Administration Hydrocortisone Sodium Succinate 50 mg 11/04/24 12:00 11/04/24 12:01 Hydrocortisone Sod Succ Inj 100 Mg Vial IV 12/04/24 11:59 50 mg Q6HR BETO Administration Propofol 1,000 mg in 100 mls @ 1.802 mls/hr 11/03/24 13:48 11/04/24 12:00 Diprivan Ivpb IV 12/03/24 13:47 15 mcg/kg/min .Q24H PRN 5.405 mls/hr PER PROTOCOL Titration Protocol 5 MCG/KG/MIN Norepinephrine/Dextrose 8 mg in 250 mls @ 5.63 mls/hr 11/03/24 14:57 11/04/24 12:05 Levophed In D5w 8mg/250ml IV 12/03/24 14:56 0 mcg/kg/min .Q24H PRN 0 mls/hr PER PROTOCOL Titration Protocol 0.05 MCG/KG/MIN Fentanyl Citrate 2,500 mcg in 250 mls @ 2.5 mls/hr 11/03/24 15:27 11/04/24 12:00 Sublimaze Inj 2,500 Mcg/250 Ml Bag IV 11/08/24 15:26 50 mcg/hr .Q24H PRN 5 mls/hr PER PROTOCOL Titration Protocol 25 MCG/HR Piperacillin/Tazobactam/Dextrose 3.375 gm in 50 mls @ 12.5 mls/hr 11/03/24 22:00 11/04/24 05:26 Zosyn IV 11/10/24 21:59 12.5 mls/hr Q8HR BETO Administration Vancomycin/Sodium Chloride 200 mls @ 200 mls/hr 11/04/24 17:00 Vancomycin/Ns 1 Gm Ivpb IV 11/11/24 16:59 Q24H BETO Heparin Sodium/Dextrose 25,000 unit in 250 mls @ 6.576 mls/hr 11/03/24 18:30 11/04/24 10:47 Heparin In D5w Ivpb IV 11/17/24 15:44 10 units/kg/hr .Q24H BETO 5.48 mls/hr Titration Protocol 12 UNITS/KG/HR Vasopressin/Sodium Chloride 20 unit in 100 mls @ 9 mls/hr 11/03/24 18:37 11/04/24 11:20 Vasostrict/Ns Ivpb IV 12/03/24 18:36 0 unit/min .Q11H7M PRN 0 mls/hr PER PROTOCOL Titration Protocol 0.03 UNIT/MIN Phenylephrine HCl 40 mg/ 100 mls @ 4.095 mls/hr 11/04/24 09:04 11/04/24 11:00 Sodium Chloride IV 12/04/24 09:03 0.5 mcg/kg/min .Q24H PRN 4.095 mls/hr Per Sepsis Protocol Titration Protocol 0.5 MCG/KG/MIN Midazolam HCl 2 mg 11/03/24 17:56 11/03/24 18:07 Midazolam Inj 1 Mg/Ml Vial 2 Ml IVP 11/08/24 17:59 2 mg Q2HR PRN Administration Anxiety or Agitation Ondansetron HCl 4 mg 11/03/24 15:32 Ondansetron Inj 2 Mg/Ml Inj 2 Ml IVP 12/03/24 15:31 Q6H PRN NAUSEA OR VOMITING Protocol Pantoprazole Sodium 40 mg 11/03/24 16:29 11/04/24 08:48 Pantoprazole Inj 40 Mg Vial IVP 12/03/24 15:44 40 mg QDAY BETO Administration Pharmacy Consult 1 each 11/03/24 15:45 Vancomycin Pharmacy To Dose 1 Each Each IV 12/03/24 15:44 QDAY PRN rx Sennosides 1 tab 11/04/24 09:00 11/04/24 08:48 Senna Tablet PO 12/04/24 08:59 1 tab QDAY BETO Administration Protocol Sodium Chloride 3 ml 11/03/24 10:58 Sodium Chloride Rt Anastacia 0.9% 3 Ml Nebu INH 12/03/24 10:57 PRN PRN SOLN Thiamine HCl 200 mg 11/04/24 09:15 11/04/24 09:37 Thiamine Inj 100 Mg/Ml Vial 2 Ml IVP 11/09/24 09:14 200 mg BID BETO Administration Plan The patient is a 49-year-old male with significant past medical history of esophageal cancer currently on remission, and hypertension presented to ED with chief complaint of acute SOB and generalized weakness is currently being treated for septic shock, Takotsubo syndrome complicated by sigmoid interventricular septum further leading to tachycardia and NSTEMI type II. #Acute hypoxic respiratory failure 2/2 #Septic shock 2/2 #Aspiration pneumonia #Severe lactic acidosis, improving The patient presented with blood pressure of 81/51, pulse 127, RR 40, and white count 33.8 meeting 3/4 SIRS criteria, chest x-ray significant for right sided middle and lower lobe pneumonia, CT chest abdomen and pelvis revealing right middle and lower lobe pneumonia, and left lower lobe pneumonia, and lactic acid level of 16, with endorgan failure as acute hypoxic respiratory failure requiring intubation. Patient received 2.5 L of bolus IV fluid - Continue with aggressive IV antibiotics - Blood and urine culture sent, pending results - IgM for coccidiomycosis - Pressor support, and recommended to avoid inotropes in the setting of sigmoid interventricular septum complicating Takotsubo syndrome. #Abnormal EKG, likely 2/2 #Takotsubo syndrome vs LAD, complicated by #Sigmoid interventricular septum, possibly leading to #Moderate to severe eccentric MR, leading to #Moderate to severe PAH #HFrEF with apical akinesis EKG was significant for sinus tachycardia with deep symmetric T wave inversion in lateral leads V4 to V6, and inverted T waves in lead I and aVL. TTE revealed: Normal LV size and moderate LV systolic dysfunction with an EF of 35 to 40%. Apical akinesis with hypokinesis of the mid to apical anterior, anterolateral and apical septal segments indicating possible Takotsubo syndrome versus LAD involvement. RV Normal in size and function. 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 Severe LA dilatation. Trace AI Moderate TR with mild RA dilatation. No Pericardial Effusion. IVC not well- visualized. -As the patient has sigmoid interventricular septum, and recent stressor likely leading to Takotsubo syndrome, leading to tachycardia of upper left ventricular, which is further pulling in mitral valve leading to MR resulting with moderate to severe PAH. -Volume status is critical, to maintain euvolemia, as hypovolemia will cause decrease venous return, resulting as compensatory tachycardia left ventricle leading to further MR, with increased pulmonary arterial pressure and shunt reversal. On the other hand, if there is hypervolemia leading to increased venous return, will complicate MR and increased pulmonary artery pressure. - Prelim TTE read was significant for improvement in LVEF, with improvement in apical akinesis. Lasix or IV fluid as needed depending upon the fluid status of the patient. - Currently patient is in shock, we will consider starting the patient on GDMT once the patient's blood pressure and other vitals are stable. - We will consider PABLITO after patient is more stable, to further evaluate mitral valve and MR. #NSTEMI type II, less likely type I Likely multifactorial secondary to septic shock, Takotsubo syndrome, sigmoid interventricular septum leading to MR. No significant risk factor for STEMI, except for hypertension, as patient denies smoking or illicit drug use, and lipid panel was significant for LDL 39 and HDL 53. EKG unremarkable for STEMI - Okay to start on heparin drip, if no other contraindication persists - Trend troponin until delta is achieved - May consider cardiac catheterization after the patient is stable - Aspirin 325 Mg x 1, followed by 81 Mg daily - Atorvastatin 40 Mg daily at night Thank you for cardiology consultation. We really appreciate for the opportunity to participate in this patient care. Cardiology team will continue to follow-up on this patient. The patient's management plan was discussed with my attending physician MD Ventura Montes MD, PGY3 Attending Provider Attestation/Addendum I have personally seen and examined the patient separately on the above date of service and discussed the plan of care with the resident. I reviewed the resident Dr. Ventura Myers consultation progress note and agree with the resident findings and plan in the note above and have also edited the documentation to reflect my findings and plan. A 49-year-old male with a past medical history of esophageal cancer s/p treatment apparently in remission, essential hypertension presented to the emergency department for worsening shortness of breath as well as generalized weakness for the past few days. Patient was unable to lie flat. Also not able to speak in full sentences today and to bring him to the emergency department. Patient has been having some cough fatigue along with worsening shortness of breath over the past 1 to 2 weeks. In the emergency department patient blood pressure was 81/55 mmHg, heart rate of 127 bpm respirate rate 40/min, using extremities well, temperature 99.2 F and saturation 98% on room air. ED Course: ED Vitals: On presentation in the emergency department blood pressure 8 1/5 5, heart rate 127, respiratory rate 40, temp 99.2, O2 sat 98 on room air ED Labs: ED labs significant for WBC 31.8, RBC 2.81, hemoglobin 8.8, hematocrit 27.5, platelet count 541, neutrophil 82%, PT 15.4, INR 1.4, sodium 146, potassium 5.0, chloride 108, bicarb 12.8, anion gap 25, BUN 53, creatinine 1.6, GFR 52, glucose 131, osmolality 306, lactic acid 16, AST 255, ALT disease, ammonia 79, total creatinine kinase 570, troponin 4.326, BNP 06/01/2005, total protein 5.3, albumin 3.1, globulin 2.2, cholesterol 113, Pro-Jonny 1.93. Urinalysis showed turbid urine, RBC 1, WBC 2, bacteria rare, hyaline cast 3, sodium less than 15, chloride less than 20. Urine drug screen, salicylate and Ethyl alcohol were negative, ABG in emergency department showed pH 7.35, pCO2 21, bicarb 12 ED Imaging: ED imaging significant for Chest x-ray bilateral pneumonia significant in right lung ED Treatment: 2 L fluids on admission, patient was given methylprednisolone 125 mg, LR 2.05 L, albuterol breathing treatment x 1, ceftriaxone, doxycycline and DuoNeb 3 mL x 1 in ED Cardiology consulted for elevated troponins at 4.5, abnormal EKG with diffuse T wave inversions in the lateral leads V4 to V6 along with T wave inversions in 1 aVL, inferior leads. Assessment and plan: 1. Shock-septic shock mostly secondary to the severe bilateral pneumonia right greater than left from possible aspiration 2. Acute hypoxic respiratory failure s/p intubation mechanical ventilation secondary to the aspiration pneumonia. 3. Elevated troponins NSTEMI type II greater than type I 4. Possible Takotsubo syndrome versus LAD territory disease based on wall motion abnormalities noted on echo. 5. Moderate to severe eccentric MR mostly secondary to the ABBI with mild LVOT obstruction from the sigmoid with no clear evidence of hypertrophic cardiomyopathy. 6. Moderate LV dysfunction with an EF of 35 to 40% with new onset systolic heart failure 7. Possible Takotsubo syndrome versus LAD territory disease based on wall motion abnormalities noted on echo. 8. Moderate to severely elevated RVSP at around 65 mmHg 9. Severe lactic acidosis at 16 bicarb of 12 on admission 10. Acute kidney injury versus acute on chronic kidney disease 12. Cirrhosis of liver 13. History of previous esophageal cancer status posttreatment and now apparently remission 14. Essential hypertension 15. Patient with significant alcohol abuse for the last 20 years Patient presentation is consistent with mostly septic shock given the severely elevated WBC 32,000 with left shift along with severe lactic acidosis at 16th. Procalcitonin is also elevated at 1.94. Chest x-ray showed pneumonia. Patient should be started on broad-spectrum IV antibiotics in the as he is not responding well with almost 2 L IV fluids. Further antibiotic regimen as per the primary team. Regarding abnormal EKG patient does not have any acute ST changes suggestive of acute CO or acute coronary syndrome. Patient has deep T wave inversions from V2-V6 which could be secondary to Takotsubo syndrome versus LAD disease versus LVH with strain pattern with significant large stroke. Patient denies any chest pain chest pressure but complained of severe shortness of breath which is explained to his pneumonia and septic shock. Troponins were elevated at 4.3 and then down trended. EKG without any acute ST changes suggestive STEMI rest of the EKG findings as noted above. Continue to trend the troponins for now. Heparin drip if no contraindication for anticoagulation. Patient mostly has NSTEMI type II greater than type I given his presentation with possible Takotsubo syndrome. Patient will need a cardiac catheterization before discharge when he is hemodynamically stable and treated adequately for the septic shock secondary to the etiology of the apical ballooning-Takotsubo versus LAD disease. Aspirin and statin for now. Continue telemetry. Echocardiogram completed and showed Normal LV size and moderate LV systolic dysfunction with an EF of 35 to 40%. Apical akinesis with hypokinesis of the mid to apical anterior, anterolateral and apical septal segments indicating possible Takotsubo syndrome versus LAD involvement. RV Normal in size and function. 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 Severe LA dilatation. Trace AI with moderate TR with mild RA dilatation. No Pericardial Effusion. IVC not well-visualized Strict input output, daily weights and 2 g sodium diet when patient able to eat. Patient was given 2 L of IV fluid initially in the emergency department and then 20 mg of IV Lasix. We will hold off on any further diuresis for now and reevaluate in a.m. Patient should be euvolemic in the aggressive diuresis could worsen the elevated obstruction and and fluid overload could worsen her as moderate to severe MR. Will recommend to repeat a limited echo to further evaluate better ABBI along with the sigmoid hypertrophy and the M-mode of the mitral valve.Will consider PABLITO for further evaluation if a limited echo does not provide enough information. Patient has moderate to severely elevated RVSP at around 65 mmHg and could be secondary to the severe MR along with possible underlying pulmonary hypertension. 11/04/2024: Patient still intubated and sedated. Patient is now on phenylephrine and patient is doing much better and Levophed is being discontinued. Vasopressin was also stopped. Repeat echocardiogram performed and actually showed improvement with an EF around 45% now with improvement of the hypokinesis of the mid to apical anterior, anterolateral as well as septal segments. [place] appears akinetic versus mild hypokinesis. Segments were noted again with LVOT obstruction from ABBI causing the moderate to severe eccentric MR. Gradients were not accurately measured due to contamination of the mitral regurgitation jet. Recommend to keep patient euvolemic. Patient responding well to the broad-spectrum antibiotics. Lactate improved to 2.5 from 16. WBC improving. Continues to be on ventilator and respiratory james stable. Troponins downtrended to 3.7. Patient continues to be on heparin drip for total of 48 hours for the possible NSTEMI. Aspirin for now and no statin in view of the elevated LFTs. NSTEMI mostly secondary to type II troponin with supply/demand mismatch. Will perform cardiac catheterization later when patient is hemodynamically stable to rule out any underlying CAD. Patient has mostly cirrhosis based on the CT scan as well as the history with significant alcohol abuse with multiple beers as well as bottle of hard liquor every day for many years. Overall condition critical and prognosis appears poor There is a high probability of sudden, clinically significant or life threatening deterioration in the patient condition which required the highest level of physician preparedness to intervene urgently. I have personally spent 65 minutes of critical care time, exclusive of time spent on any procedures, in evaluation and management of this critically ill patient. Management of rest of the medical conditions as per primary team and other consultants. Thank you for the consult and allowing me to participate in the care of the patient. Cardiology will continue to follow. Colin Brandt M.D. Interventional Cardiology
[2024-11-04] MEDS: PROPOFOL 1,000 MG IVPB 1,000 MG/100 ML VIAL 5.405 MG IV (13:29)
--- NOTE | 2024-11-04 15:47 | PC.DIETICIAN ---
Addendum entered by Maldonado Lisa, RD 11/06/24 10:47: Patient meets ASPEN criteria for Severe chronic disease or condition related malnutrition due to: 1. Severe muscle wasting. 2. Severe subcutaneous fat loss. 3. Suspected significant unintentional weight loss. 4. Suspected inadequate oral intake. Original Note: Nutrition prescription Vital 1.2 at 20 ml/hr via NG tube by pump. Advance 10 ml every 8 hrs to goal rate of 50 ml/hr x 24 hrs. If no IV fluids, water flushes of 25 ml/hr (or per MD).
--- NOTE | 2024-11-04 16:44 | PC.SS ---
Update: Patient is intubated/sedated. Receiving pressor support. Receiving IV antibiotics. NG tube in place, feedings started. Dr. Sanford, Dr. Louis and Dr Webb are consulting. Endoscopy and cardiac cath procedures are possibilities.
[2024-11-04 17:42] LABS: Partial Thromboplastin Time 53.3 Seconds (22.0-36.0)
[2024-11-04] MEDS: VANCOMYCIN/NS 1 GM IVPB 200 ML IV (17:46)
[2024-11-04] MEDS: Heparin/D5w 25K 250 ML Ivpb 25,000 UNIT/250 ML BAG 5.48 UNIT IV (17:47)
[2024-11-04] MEDS: ATORVASTATIN CALCIUM 20 MG TABLET 40 MG PO (21:01)
[2024-11-04] MEDS: Norepinephrine/D5W 8mg/250ml 8 MG/250 ML BAG IV (21:52)
--- NOTE | 2024-11-04 21:53 | ESPR_ITS ---
Documentation for date of: 11/04/24 Subjective Subjective Interval history: Orogastric tube in satisfactory position Exam Vital Signs Temp Pulse Resp BP Pulse Ox O2 Del Method O2 Flow Rate 99.2 F 108 H 30 H 78/45 L 98 Mechanical Ventilation 65 11/04/24 16:00 11/04/24 21:52 11/03/24 17:45 11/04/24 21:52 11/04/24 19:00 11/04/24 16:00 11/04/24 00:00 FiO2 30 11/04/24 17:53 Objective Labs 11/04/24 05:15 11/04/24 05:15 Labs: Laboratory Results - last 24 hr 11/03/24 11/04/24 11/04/24 15:44 00:00 00:11 WBC RBC Hgb Hct MCV MCH MCHC RDW Std Deviation Plt Count Neut % (Auto) Lymph % (Auto) [place] % (Auto) Eos % (Auto) Baso % (Auto) Neut # (Auto) Lymph # (Auto) [place] # (Auto) Eos # (Auto) Baso # (Auto) Immature Gran # (Auto) Absolute Nucleated RBC Immature Gran % Nucleated RBC % PT INR APTT 87.4 H D Puncture Site ABG pH ABG pCO2 ABG pO2 ABG HCO3 ABG O2 Saturation ABG Base Excess VBG pH 7.43 VBG pCO2 35 L VBG pO2 43 VBG O2 Sat (Brayan) 78 L VBG Base Excess -1 FiO2 Sodium Potassium Chloride Carbon Dioxide Anion Gap BUN Creatinine Estim Creat Clear Calc eGFR BUN/Creatinine Ratio Glucose Estimated Ave Glu mg/dL Hemoglobin A1c Calculated Osmolality Lactic Acid Calcium Corrected Calcium Phosphorus Magnesium Total Bilirubin AST ALT Alkaline Phosphatase Total Protein Albumin Globulin Albumin/Globulin Ratio Procalcitonin Coccidioides IgM Ab Negative Hepatitis A IgM Ab Hep Bs Antigen Hep B Core IgM Ab Hepatitis C Antibody 11/04/24 11/04/24 11/04/24 04:29 04:46 05:15 WBC 31.4 H RBC 2.43 L Hgb 7.7 L Hct 22.6 L MCV 93 MCH 31.7 MCHC 34.1 RDW Std Deviation 58.3 H Plt Count 518 H Neut % (Auto) 84 H Lymph % (Auto) 10 [place] % (Auto) 6 Eos % (Auto) 0 Baso % (Auto) 0 Neut # (Auto) 26.2 H Lymph # (Auto) 3.2 [place] # (Auto) 1.8 H Eos # (Auto) 0.0 Baso # (Auto) 0.1 Immature Gran # (Auto) 0.13 H Absolute Nucleated RBC 0.16 H Immature Gran % 0 Nucleated RBC % 1 H PT 15.6 H INR 1.5 H APTT 74.6 H D Puncture Site Right Radial ABG pH 7.50 H D ABG pCO2 30 L D ABG pO2 109 H D ABG HCO3 23 ABG O2 Saturation 100 H ABG Base Excess 1 VBG pH 7.52 VBG pCO2 27 L VBG pO2 57 VBG O2 Sat (Brayan) 93 L D VBG Base Excess 0 FiO2 45 Sodium 144 Potassium 4.1 D Chloride 110 H Carbon Dioxide 23.6 Anion Gap 10 BUN 49 H Creatinine 1.3 Estim Creat Clear Calc 52.1 L eGFR > 60 BUN/Creatinine Ratio 38 H Glucose [address] Glu mg/dL Cancelled Hemoglobin A1c Cancelled Calculated Osmolality 306 H Lactic Acid 3.5 H Calcium 7.6 L Corrected Calcium 8.5 Phosphorus 2.9 Magnesium 2.0 Total Bilirubin 0.7 D AST 392 H ALT 142 H Alkaline Phosphatase 70 Total Protein 5.0 L Albumin 2.9 L Globulin 2.1 L Albumin/Globulin Ratio 1.4 Procalcitonin 4.24 H Coccidioides IgM Ab Hepatitis A IgM Ab Non Reactive Hep Bs Antigen Non Reactive Hep B Core IgM Ab Non Reactive Hepatitis C Antibody Non Reactive 11/04/24 11/04/24 11/04/24 05:15 09:05 09:50 WBC RBC Hgb Hct MCV MCH MCHC RDW Std Deviation Plt Count Neut % (Auto) Lymph % (Auto) [place] % (Auto) Eos % (Auto) Baso % (Auto) Neut # (Auto) Lymph # (Auto) [place] # (Auto) Eos # (Auto) Baso # (Auto) Immature Gran # (Auto) Absolute Nucleated RBC Immature Gran % Nucleated RBC % PT INR APTT 69.2 H Puncture Site ABG pH ABG pCO2 ABG pO2 ABG HCO3 ABG O2 Saturation ABG Base Excess VBG pH VBG pCO2 VBG pO2 VBG O2 Sat (Brayan) VBG Base Excess FiO2 Sodium Potassium Chloride Carbon Dioxide Anion Gap BUN Creatinine Estim Creat Clear Calc eGFR BUN/Creatinine Ratio Glucose Estimated Ave Glu mg/dL Hemoglobin A1c Calculated Osmolality Lactic Acid 2.5 H Calcium Corrected Calcium Phosphorus Magnesium Total Bilirubin AST ALT Alkaline Phosphatase Total Protein Albumin Globulin Albumin/Globulin Ratio Procalcitonin Cancelled Coccidioides IgM Ab Hepatitis A IgM Ab Hep Bs Antigen Hep B Core IgM Ab Hepatitis C Antibody 11/04/24 16:36 WBC RBC Hgb Hct MCV MCH MCHC RDW Std Deviation Plt Count Neut % (Auto) Lymph % (Auto) [place] % (Auto) Eos % (Auto) Baso % (Auto) Neut # (Auto) Lymph # (Auto) [place] # (Auto) Eos # (Auto) Baso # (Auto) Immature Gran # (Auto) Absolute Nucleated RBC Immature Gran % Nucleated RBC % PT INR APTT 53.3 H D Puncture Site ABG pH ABG pCO2 ABG pO2 ABG HCO3 ABG O2 Saturation ABG Base Excess VBG pH VBG pCO2 VBG pO2 VBG O2 Sat (Brayan) VBG Base Excess FiO2 Sodium Potassium Chloride Carbon Dioxide Anion Gap BUN Creatinine Estim Creat Clear Calc eGFR BUN/Creatinine Ratio Glucose Estimated Ave Glu mg/dL Hemoglobin A1c Calculated Osmolality Lactic Acid Calcium Corrected Calcium Phosphorus Magnesium Total Bilirubin AST ALT Alkaline Phosphatase Total Protein Albumin Globulin Albumin/Globulin Ratio Procalcitonin [place] IgM Ab Hepatitis A IgM Ab Hep Bs Antigen Hep B Core IgM Ab Hepatitis C Antibody Impressions Impression: Acute respiratory failure requiring endotracheal intubation mechanical ventilation NGT in place advised the RN to start using it as of last night ABG Interpretation ABG results: 11/03/24 11/03/24 11/03/24 11:20 14:11 17:06 ABG pH 7.35 7.34 L 7.20 L D ABG pCO2 21 L 20 L 45 D ABG pO2 193 H 82 L D 78 L ABG HCO3 12 L 11 L 16 L ABG O2 Saturation 100 H 96 91 ABG Base Excess -12 L -14 L -12 L VBG pH VBG pCO2 VBG pO2 VBG Base Excess 11/04/24 11/04/24 11/04/24 00:00 04:29 05:15 ABG pH 7.50 H D ABG pCO2 30 L D ABG pO2 109 H D ABG HCO3 23 ABG O2 Saturation 100 H ABG Base Excess 1 VBG pH 7.43 7.52 VBG pCO2 35 L 27 L VBG pO2 43 57 VBG Base Excess -1 0 Assessment & Plan A&P Narrative 49 years old male with acute respiratory failure bilateral pneumonia acute coronary syndrome mechanically ventilated with previous history of Esophageal carcinoma status posttreatment and supposedly in remission Difficulty placing the NGT only OGT in Plan Will attempt to place a 14 Setswana NGT either via nasogastric approach or oral approach Will follow the patient # Transaminitis most likely due to hypoxic hepatitis Thank you very much for the opportunity to participate in the care of this patient Time Spent With Patient Time: Total time spent is greater than 50% in coordination of care (as documented) at patient's floor/unit and/or counseling patient:
[2024-11-05] VITALS (103 sets, daily range): BP systolic 82–135; BP diastolic 50–88; PULSE 97–136; RESP 12–36; TEMP 36.3–37.2; O2SAT 97–100; BMI 18.2
[2024-11-05 01:15] LABS: Partial Thromboplastin Time 43.4 Seconds (22.0-36.0)
[2024-11-05] MEDS: HEPARIN SOD INJ 5000 UNIT/ML VIAL 1600 UNIT IVP (04:28)
[2024-11-05] MEDS: fentaNYL 2,500 MCG/250 ML BAG 2,500 MCG/250 ML BAG IV (04:39)
[2024-11-05 04:58] LABS: Base Excess 3 (-3-3); HCO3 26 mEq/L (20-26); Inspired Oxygen, FIO2 21 %; O2 Saturation 96 % (91-98); PCO2 35 mmHg (32.0-48.0); PO2 74 mmHg (83-108); pH, Arterial 7.48 (7.35-7.45)
[2024-11-05] MEDS: PIPER/TAZO 3.375 GM PREMIX 3.375 GM/50 ML BAG IV ×3 (05:00→21:20)
[2024-11-05] MEDS: HYDROCORTISONE SOD SUCC INJ 100 MG VIAL 50 MG IV (05:00)
[2024-11-05 05:09] LABS: Allen Test Performed/OK; Puncture Site Right Radial
[2024-11-05] MEDS: PROPOFOL 1,000 MG IVPB 1,000 MG/100 ML VIAL 5.405 MG IV (06:14)
[2024-11-05 06:46] LABS: INR 1.1 (0.9-1.3); Partial Thromboplastin Time 45.5 Seconds (22.0-36.0); Prothrombin Time 12.4 Seconds (9.0-12.2)
[2024-11-05 06:52] LABS: Basophils # (Auto) 0.0 Thou/mm3 (0.0-0.2); Basophils % (Auto) 0 % (0-2.5); Eosinophils # (Auto) 0.0 Thou/mm3 (0.0-0.5); Eosinophils % (Auto) 0 % (0-10); Hematocrit 25.0 % (41.0-53.0); Hemoglobin 8.4 g/dL (13.5-16.0); Immature Granulocytes Auto 0.21 Thou/mm3 (0.00-0.00); Lymphocytes # (Auto) 1.3 Thou/mm3 (1.0-4.8); Lymphocytes % (Auto) 8 % (10-50); Mean Corpuscular HGB Conc 33.6 g/dl (31.0-37.0); Mean Corpuscular Hemoglobin 31.8 pg (25.0-35.0); Mean Corpuscular Volume 95 fL (80-100); Monocytes # (Auto) 1.5 Thou/mm3 (0.0-0.8); Monocytes % (Auto) 9 % (0-12); Neutrophils # (Auto) 13.5 Thou/mm3 (1.8-7.7); Neutrophils % (Auto) 81 % (37-80); Nucleated Red Blood Cell # 0.83 Thou/mm3 (0.00-0.00); Nucleated Red Blood Cell % 5 /100 WBC (0); Platelet Count 225 Thou/mm3 (140-440); RDW Standard Deviation 60.7 fL (35.1-43.9); Red Blood Count 2.64 Miln/mm3 (4.50-5.90); White Blood Count 16.6 Thou/mm3 (3.8-10.6)
[2024-11-05 07:16] LABS: Alanine Aminotransferase 142 U/L (10-49); Albumin, Serum 3.0 gm/dL (3.5-5.0); Albumin/Globulin Ratio 1.4 (1.2-2.2); Alkaline Phosphatase 81 U/L (46-116); Anion Gap 11 (7-16); Aspartate Amino Transferase 232 U/L (0-34); BUN/Creatinine Ratio 31 Ratio (12-20); Bilirubin,Total 0.7 mg/dL (0.3-1.2); Blood Urea Nitrogen 25 mg/dL (9-23); Calcium 7.7 mg/dL (8.3-10.6); Calcium (Corrected) 8.5 mg/dL (8.5-10.1); Carbon Dioxide 24.8 mMol/L (20.0-31.0); Chloride 111 mMol/L (98-107); Creatinine (Component) 0.8 mg/dL (0.6-1.3); Estimated Creatinine Clearance 84.4 mL/min (>60); Globulin 2.2 gm/dL (2.3-3.5); Glucose 145 mg/dL (74-106); Magnesium 2.0 mg/dL (1.6-2.6); Osmolality,Calculated 299 (275-295); Phosphorous 1.9 mg/dL (2.4-5.1); Potassium 3.8 mMol/L (3.4-5.1); Sodium 147 mMol/L (136-145); Total Protein 5.2 gm/dL (5.7-8.2); eGFR > 60 See Note
[2024-11-05] MEDS: MIDAZOLAM INJ 1 MG/ML VIAL 2 ML 2 MG IVP ×2 (07:50→14:15)
--- NOTE | 2024-11-05 07:52 | XR_ITS ---
Examination: AP chest single view Technique one AP portable semiupright chest single view Date and time: November 05, 2024, 0810 hours Comparison November 04, 2024 INDICATIONS: Hypoxic respiratory failure history post intubation FINDINGS: Improvement in lung opacity bilaterally There remains prominent vascular congestion Endotracheal tube tip 3.7 cm above [place]. Orogastric tube in stomach Right internal jugular central line tip SVC satisfactory position IMPRESSION: Improvement in bilateral pneumonia
--- NOTE | 2024-11-05 08:12 | ESPR_ITS ---
Documentation for date of: 11/05/24 Subjective Subjective Interval history: The patient was seen and examined at the bedside this morning. Continues to be sedated, intubated and mechanically ventilated. Continues to be in pressor support. Avoid inotropic's pressor support. Significant improvement in lactic acid level to 2.5 from 16 yesterday. White count still elevated at 16.6, with hemoglobin 8.4. Improvement in pH and bicarb. Creatinine improved to 0.8. Liver enzymes trending down. Repeat chest x-ray revealed significant improvement in bilateral pneumonia. TTE prelim read was significant for improvement in LVEF with improvement in apical akinesis. Final report pending. Diuretics and IV fluids as needed depending on the patient's fluid status. Exam Vital Signs Temp Pulse Resp BP Pulse Ox O2 Del Method O2 Flow Rate 97.4 F 121 H 30 H 95/59 L 100 Trans-Tracheal Cannula 65 11/05/24 08:00 11/05/24 08:00 11/03/24 17:45 11/05/24 08:00 11/05/24 08:00 11/05/24 08:00 11/04/24 00:00 FiO2 35 11/05/24 08:00 Narrative Exam General: No acute distress, sedated, intubated and mechanically ventilated HEENT: Moist mucous membranes, oropharynx clear Neck: Supple, No masses, No JVD CVS: S1S2 Regular rate and rhythm, No murmurs, rubs or gallops Lungs: Mild wheezing throughout the lung field, rhonchi appreciated throughout the lung field, mild bibasilar crackles appreciated Abd: Soft, NT/ND, +BS, hepatomegaly appreciated Ext: No edema, warm and well perfused Skin: No rash Psych: Unable to obtain Objective Labs 11/05/24 04:25 11/05/24 04:25 Labs: Laboratory Results - last 24 hr 11/03/24 11/04/24 11/04/24 15:44 04:46 09:05 WBC RBC Hgb Hct MCV MCH MCHC RDW Std Deviation Plt Count Neut % (Auto) Lymph % (Auto) [place] % (Auto) Eos % (Auto) Baso % (Auto) Neut # (Auto) Lymph # (Auto) [place] # (Auto) Eos # (Auto) Baso # (Auto) Immature Gran # (Auto) Absolute Nucleated RBC Immature Gran % Nucleated RBC % PT INR APTT 69.2 H Puncture Site ABG pH ABG pCO2 ABG pO2 ABG HCO3 ABG O2 Saturation ABG Base Excess FiO2 Sodium Potassium Chloride Carbon Dioxide Anion Gap BUN Creatinine Estim Creat Clear Calc eGFR BUN/Creatinine Ratio Glucose Calculated Osmolality Lactic Acid Calcium Corrected Calcium Phosphorus Magnesium Total Bilirubin AST ALT Alkaline Phosphatase Total Protein Albumin Globulin Albumin/Globulin Ratio Coccidioides IgM Ab Negative Hepatitis A IgM Ab Non Reactive Hep Bs Antigen Non Reactive Hep B Core IgM Ab Non Reactive Hepatitis C Antibody Non Reactive Blood Bank [place] ID 11/04/24 11/04/24 11/05/24 09:50 16:36 00:44 WBC RBC Hgb Hct MCV MCH MCHC RDW Std Deviation Plt Count Neut % (Auto) Lymph % (Auto) [place] % (Auto) Eos % (Auto) Baso % (Auto) Neut # (Auto) Lymph # (Auto) [place] # (Auto) Eos # (Auto) Baso # (Auto) Immature Gran # (Auto) Absolute Nucleated RBC Immature Gran % Nucleated RBC % PT INR APTT 53.3 H D 43.4 H Puncture Site ABG pH ABG pCO2 ABG pO2 ABG HCO3 ABG O2 Saturation ABG Base Excess FiO2 Sodium Potassium Chloride Carbon Dioxide Anion Gap BUN Creatinine Estim Creat Clear Calc eGFR BUN/Creatinine Ratio Glucose Calculated Osmolality Lactic Acid 2.5 H Calcium Corrected Calcium Phosphorus Magnesium Total Bilirubin AST ALT Alkaline Phosphatase Total Protein Albumin Globulin Albumin/Globulin Ratio Coccidioides IgM Ab Hepatitis A IgM Ab Hep Bs Antigen Hep B Core IgM Ab Hepatitis C Antibody Blood Bank [place] [facility] ID 11/05/24 11/05/24 04:25 04:49 WBC 16.6 H D RBC 2.64 L Hgb 8.4 L Hct 25.0 L MCV 95 MCH 31.8 MCHC 33.6 RDW Std Deviation 60.7 H Plt Count 225 D Neut % (Auto) 81 H Lymph % (Auto) 8 L [place] % (Auto) 9 Eos % (Auto) 0 Baso % (Auto) 0 Neut # (Auto) 13.5 H Lymph # (Auto) 1.3 [place] # (Auto) 1.5 H Eos # (Auto) 0.0 Baso # (Auto) 0.0 Immature Gran # (Auto) 0.21 H Absolute Nucleated RBC 0.83 H Immature Gran % 1 H Nucleated RBC % 5 H PT 12.4 H D INR 1.1 APTT 45.5 H Puncture Site Right Radial ABG pH 7.48 H ABG pCO2 35 ABG pO2 74 L D ABG HCO3 26 ABG O2 Saturation 96 ABG Base Excess 3 FiO2 21 Sodium 147 H Potassium 3.8 Chloride 111 H Carbon Dioxide 24.8 Anion Gap 11 BUN 25 H Creatinine 0.8 D Estim Creat Clear Calc 84.4 eGFR > 60 BUN/Creatinine Ratio 31 H Glucose 145 H D Calculated Osmolality 299 H Lactic Acid Calcium 7.7 L Corrected Calcium 8.5 Phosphorus 1.9 L Magnesium 2.0 Total Bilirubin 0.7 AST 232 H ALT 142 H Alkaline Phosphatase 81 Total Protein 5.2 L Albumin 3.0 L Globulin 2.2 L Albumin/Globulin Ratio 1.4 Coccidioides IgM Ab Hepatitis A IgM Ab Hep Bs Antigen Hep B Core IgM Ab Hepatitis C Antibody Blood Bank [place] ID Yes ABG Interpretation ABG results: 11/03/24 11/03/24 11/03/24 11:20 14:11 17:06 ABG pH 7.35 7.34 L 7.20 L D ABG pCO2 21 L 20 L 45 D ABG pO2 193 H 82 L D 78 L ABG HCO3 12 L 11 L 16 L ABG O2 Saturation 100 H 96 91 ABG Base Excess -12 L -14 L -12 L VBG pH VBG pCO2 VBG pO2 VBG Base Excess 11/04/24 11/04/24 11/04/24 00:00 04:29 05:15 ABG pH 7.50 H D ABG pCO2 30 L D ABG pO2 109 H D ABG HCO3 23 ABG O2 Saturation 100 H ABG Base Excess 1 VBG pH 7.43 7.52 VBG pCO2 35 L 27 L VBG pO2 43 57 VBG Base Excess -1 0 11/05/24 04:49 ABG pH 7.48 H ABG pCO2 35 ABG pO2 74 L D ABG HCO3 26 ABG O2 Saturation 96 ABG Base Excess 3 VBG pH VBG pCO2 VBG pO2 VBG Base Excess Quality Measures Quality Measures sepsis Current suspected stage: septic shock (LA >4 and/or hypotension) Sepsis reassessment completed at (date): 11/05/24 Sepsis reassessment completed at (time): 15:49 Possible source: pulmonary Blood cultures ordered: completed in ED Antibiotic ordered: Yes Assessment & Plan Assessment Current Active Medications: Generic Name Dose Route Start Last Admin Trade Name Freq PRN Reason Stop Dose Admin Acetaminophen 650 mg 11/03/24 15:32 Acetaminophen 325 Mg Tablet PO 12/03/24 15:31 Q6H PRN Fever >101.5 Aspirin 81 mg 11/04/24 09:00 11/04/24 08:48 Aspirin 81 Mg Chew GT 12/04/24 08:59 81 mg QDAY BETO Administration Atorvastatin Calcium 40 mg 11/03/24 21:00 11/04/24 21:01 Atorvastatin Calcium 20 Mg Tablet PO 12/03/24 20:59 40 mg HS BETO Administration Folic Acid 1 mg 11/04/24 09:15 11/04/24 09:37 Folic Acid Inj 1 Mg/0.2 Ml IVP 12/04/24 09:14 1 mg QDAY BETO Administration Heparin Sodium (Porcine) 5,000 unit 11/05/24 14:00 Heparin Sod Inj 5000 Unit/Ml Vial SC 11/19/24 13:59 Q8HR BETO Hydrocortisone Sodium Succinate 50 mg 11/04/24 12:00 11/05/24 05:00 Hydrocortisone Sod Succ Inj 100 Mg Vial IV 12/04/24 11:59 50 mg Q6HR BETO Administration Propofol 1,000 mg in 100 mls @ 1.802 mls/hr 11/03/24 13:48 11/05/24 07:42 Diprivan Ivpb IV 12/03/24 13:47 20 mcg/kg/min .Q24H PRN 7.207 mls/hr PER PROTOCOL Titration Protocol 5 MCG/KG/MIN Norepinephrine/Dextrose 8 mg in 250 mls @ 5.63 mls/hr 11/03/24 14:57 11/05/24 05:00 Levophed In D5w 8mg/250ml IV 12/03/24 14:56 0 mcg/kg/min .Q24H PRN 0 mls/hr PER PROTOCOL Titration Protocol 0.05 MCG/KG/MIN Fentanyl Citrate 2,500 mcg in 250 mls @ 2.5 mls/hr 11/03/24 15:27 11/05/24 07:45 Sublimaze Inj 2,500 Mcg/250 Ml Bag IV 11/08/24 15:26 100 mcg/hr .Q24H PRN 10 mls/hr PER PROTOCOL Titration Protocol 25 MCG/HR Piperacillin/Tazobactam/Dextrose 3.375 gm in 50 mls @ 12.5 mls/hr 11/03/24 22:00 11/05/24 05:00 Zosyn IV 11/10/24 21:59 12.5 mls/hr Q8HR BETO Administration Vasopressin/Sodium Chloride 20 unit in 100 mls @ 9 mls/hr 11/03/24 18:37 11/04/24 11:20 Vasostrict/Ns Ivpb IV 12/03/24 18:36 0 unit/min .Q11H7M PRN 0 mls/hr PER PROTOCOL Titration Protocol 0.03 UNIT/MIN Phenylephrine HCl 40 mg/ 100 mls @ 4.095 mls/hr 11/04/24 09:04 11/04/24 18:30 Sodium Chloride IV 12/04/24 09:03 0 mcg/kg/min .Q24H PRN 0 mls/hr Per Sepsis Protocol Titration Protocol 0.5 MCG/KG/MIN Vancomycin/Sodium Chloride 200 mls @ 120 mls/hr 11/05/24 10:00 Vancomycin/Ns 1 Gm Ivpb IV 11/12/24 09:59 Q12H BETO Protocol Potassium Phosphate 15 mmol in 250 mls @ 62.5 mls/hr 11/05/24 07:56 Pot Phos 15 Mmol In Ns 250 Ml IV 11/05/24 11:55 X1 ONE Midazolam HCl 2 mg 11/03/24 17:56 11/05/24 07:50 Midazolam Inj 1 Mg/Ml Vial 2 Ml IVP 11/08/24 17:59 2 mg Q2HR PRN Administration Anxiety or Agitation Ondansetron HCl 4 mg 11/03/24 15:32 Ondansetron Inj 2 Mg/Ml Inj 2 Ml IVP 12/03/24 15:31 Q6H PRN NAUSEA OR VOMITING Protocol Pantoprazole Sodium 40 mg 11/03/24 16:29 11/04/24 08:48 Pantoprazole Inj 40 Mg Vial IVP 12/03/24 15:44 40 mg QDAY [facility] Administration Pharmacy Consult 1 each 11/03/24 15:45 Vancomycin Pharmacy To Dose 1 Each Each IV 12/03/24 15:44 QDAY PRN rx Sennosides 1 tab 11/04/24 09:00 11/04/24 08:48 Senna Tablet PO 12/04/24 08:59 1 tab QDAY [facility] Administration Protocol Sodium Chloride 3 ml 11/03/24 10:58 Sodium Chloride Rt Anastacia 0.9% 3 Ml Nebu INH 12/03/24 10:57 PRN PRN SOLN Thiamine HCl 200 mg 11/04/24 09:15 11/04/24 21:01 Thiamine Inj 100 Mg/Ml Vial 2 Ml IVP 11/09/24 09:14 200 mg BID BETO Administration Plan The patient is a 49-year-old male with significant past medical history of esophageal cancer currently on remission, and hypertension presented to ED with chief complaint of acute SOB and generalized weakness is currently being treated for septic shock, Takotsubo syndrome complicated by sigmoid interventricular septum further leading to tachycardia and NSTEMI type II. #Acute hypoxic respiratory failure 2/2 #Septic shock 2/2 #Aspiration pneumonia #Severe lactic acidosis, improving The patient presented with blood pressure of 81/51, pulse 127, RR 40, and white count 33.8 meeting 3/4 SIRS criteria, chest x-ray significant for right sided middle and lower lobe pneumonia, CT chest abdomen and pelvis revealing right middle and lower lobe pneumonia, and left lower lobe pneumonia, and lactic acid level of 16, with endorgan failure as acute hypoxic respiratory failure requiring intubation. Patient received 2.5 L of bolus IV fluid - Continue with aggressive IV antibiotics - Blood and urine culture sent, pending results - IgM for coccidiomycosis - Pressor support, and recommended to avoid inotropes in the setting of sigmoid interventricular septum complicating Takotsubo syndrome. #Abnormal EKG, likely 2/2 #Takotsubo syndrome vs LAD, complicated by #Sigmoid interventricular septum, possibly leading to #Moderate to severe eccentric MR, leading to #Moderate to severe PAH #HFrEF with apical akinesis EKG was significant for sinus tachycardia with deep symmetric T wave inversion in lateral leads V4 to V6, and inverted T waves in lead I and aVL. TTE revealed: Normal LV size and moderate LV systolic dysfunction with an EF of 35 to 40%. Apical akinesis with hypokinesis of the mid to apical anterior, anterolateral and apical septal segments indicating possible Takotsubo syndrome versus LAD involvement. RV Normal in size and function. 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 Severe LA dilatation. Trace AI Moderate TR with mild RA dilatation. No Pericardial Effusion. IVC not well- visualized. -As the patient has sigmoid interventricular septum, and recent stressor likely leading to Takotsubo syndrome, leading to tachycardia of upper left ventricular, which is further pulling in mitral valve leading to MR resulting with moderate to severe PAH. -Volume status is critical, to maintain euvolemia, as hypovolemia will cause decrease venous return, resulting as compensatory tachycardia of upper left ventricle leading to further MR, with increased pulmonary arterial pressure and shunt reversal. On the other hand, if there is hypervolemia leading to increased venous return, will complicate MR and increased pulmonary artery pressure. - Prelim TTE read was significant for improvement in LVEF, with improvement in apical akinesis. Lasix or IV fluid as needed depending upon the fluid status of the patient. - Currently patient is in shock, we will consider starting the patient on GDMT once the patient's blood pressure and other vitals are stable. - We will consider PABLITO after patient is more stable, to further evaluate mitral valve and MR. #NSTEMI type II, less likely type I Likely multifactorial secondary to septic shock, Takotsubo syndrome, sigmoid interventricular septum leading to MR. No significant risk factor for STEMI, except for hypertension, as patient denies smoking or illicit drug use, and lipid panel was significant for LDL 39 and HDL 53. EKG unremarkable for STEMI - Okay to start on heparin drip, if no other contraindication persists - Trend troponin until delta is achieved - May consider cardiac catheterization after the patient is stable - Aspirin 81 Mg daily - Atorvastatin 40 Mg daily at night Thank you for cardiology consultation. We really appreciate for the opportunity to participate in this patient care. Cardiology team will continue to follow-up on this patient. The patient's management plan was discussed with my attending physician MD Ventura Montes MD, PGY3 Attending Provider Attestation/Addendum I have personally seen and examined the patient separately on the above date of service and discussed the plan of care with the resident. I reviewed the resident Dr. Ventura Myers consultation progress note and agree with the resident findings and plan in the note above and have also edited the documentation to reflect my findings and plan. A 49-year-old male with a past medical history of esophageal cancer s/p treatment apparently in remission, essential hypertension presented to the emergency department for worsening shortness of breath as well as generalized weakness for the past few days. Patient was unable to lie flat. Also not able to speak in full sentences today and to bring him to the emergency department. Patient has been having some cough fatigue along with worsening shortness of breath over the past 1 to 2 weeks. In the emergency department patient blood pressure was 81/55 mmHg, heart rate of 127 bpm respirate rate 40/min, using extremities well, temperature 99.2 F and saturation 98% on room air. ED Course: ED Vitals: On presentation in the emergency department blood pressure 8 1/ 5, heart rate 127, respiratory rate 40, temp 99.2, O2 sat 98 on room air ED Labs: ED labs significant for WBC 31.8, RBC 2.81, hemoglobin 8.8, hematocrit 27.5, platelet count 541, neutrophil 82%, PT 15.4, INR 1.4, sodium 146, potassium 5.0, chloride 108, bicarb 12.8, anion gap 25, BUN 53, creatinine 1.6, GFR 52, glucose 131, osmolality 306, lactic acid 16, AST 255, ALT disease, ammonia 79, total creatinine kinase 570, troponin 4.326, BNP 06/01/2005, total protein 5.3, albumin 3.1, globulin 2.2, cholesterol 113, Pro-Jonny 1.93. Urinalysis showed turbid urine, RBC 1, WBC 2, bacteria rare, hyaline cast 3, sodium less than 15, chloride less than 20. Urine drug screen, salicylate and Ethyl alcohol were negative, ABG in emergency department showed pH 7.35, pCO2 21, bicarb 12 ED Imaging: ED imaging significant for Chest x-ray bilateral pneumonia significant in right lung ED Treatment: 2 L fluids on admission, patient was given methylprednisolone 125 mg, LR 2.05 L, albuterol breathing treatment x 1, ceftriaxone, doxycycline and DuoNeb 3 mL x 1 in ED Cardiology consulted for elevated troponins at 4.5, abnormal EKG with diffuse T wave inversions in the lateral leads V4 to V6 along with T wave inversions in 1 aVL, inferior leads. Assessment and plan: 1. Shock-septic shock mostly secondary to the severe bilateral pneumonia right greater than left from possible aspiration 2. Acute hypoxic respiratory failure s/p intubation mechanical ventilation secondary to the aspiration pneumonia. 3. Elevated troponins NSTEMI type II greater than type I 4. Possible Takotsubo syndrome versus LAD territory disease based on wall motion abnormalities noted on echo. 5. Moderate to severe eccentric MR mostly secondary to the ABBI with mild LVOT obstruction from the sigmoid with no clear evidence of hypertrophic cardiomyopathy. 6. Moderate LV dysfunction with an EF of 35 to 40% with new onset systolic heart failure 7. Possible Takotsubo syndrome versus LAD territory disease based on wall motion abnormalities noted on echo. 8. Moderate to severely elevated RVSP at around 65 mmHg 9. Severe lactic acidosis at 16 bicarb of 12 on admission 10. Acute kidney injury versus acute on chronic kidney disease 12. Cirrhosis of liver 13. History of previous esophageal cancer status posttreatment and now apparently remission 14. Essential hypertension 15. Patient with significant alcohol abuse for the last 20 years Patient presentation is consistent with mostly septic shock given the severely elevated WBC 32,000 with left shift along with severe lactic acidosis at 16th. Procalcitonin is also elevated at 1.94. Chest x-ray showed pneumonia. Patient should be started on broad-spectrum IV antibiotics in the as he is not responding well with almost 2 L IV fluids. Further antibiotic regimen as per the primary team. Regarding abnormal EKG patient does not have any acute ST changes suggestive of acute NE or acute coronary syndrome. Patient has deep T wave inversions from V2-V6 which could be secondary to Takotsubo syndrome versus LAD disease versus LVH with strain pattern with significant large stroke. Patient denies any chest pain chest pressure but complained of severe shortness of breath which is explained to his pneumonia and septic shock. Troponins were elevated at 4.3 and then down trended. EKG without any acute ST changes suggestive STEMI rest of the EKG findings as noted above. Continue to trend the troponins for now. Heparin drip if no contraindication for anticoagulation. Patient mostly has NSTEMI type II greater than type I given his presentation with possible Takotsubo syndrome. Patient will need a cardiac catheterization before discharge when he is hemodynamically stable and treated adequately for the septic shock secondary to the etiology of the apical ballooning-Takotsubo versus LAD disease. Aspirin and statin for now. Continue telemetry. Echocardiogram completed and showed Normal LV size and moderate LV systolic dysfunction with an EF of 35 to 40%. Apical akinesis with hypokinesis of the mid to apical anterior, anterolateral and apical septal segments indicating possible Takotsubo syndrome versus LAD involvement. RV Normal in size and function. 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 Severe LA dilatation. Trace AI with moderate TR with mild RA dilatation. No Pericardial Effusion. IVC not well-visualized Strict input output, daily weights and 2 g sodium diet when patient able to eat. Patient was given 2 L of IV fluid initially in the emergency department and then 20 mg of IV Lasix. We will hold off on any further diuresis for now and reevaluate in a.m. Patient should be euvolemic in the aggressive diuresis could worsen the elevated obstruction and and fluid overload could worsen her as moderate to severe MR. Will recommend to repeat a limited echo to further evaluate better ABBI along with the sigmoid hypertrophy and the M-mode of the mitral valve.Will consider PABLITO for further evaluation if a limited echo does not provide enough information. Patient has moderate to severely elevated RVSP at around 65 mmHg and could be secondary to the severe MR along with possible underlying pulmonary hypertension. 11/04/2024: Patient still intubated and sedated. Patient is now on phenylephrine and patient is doing much better and Levophed is being discontinued. Vasopressin was also stopped. Repeat echocardiogram performed and actually showed improvement with an EF around 45% now with improvement of the hypokinesis of the mid to apical anterior, anterolateral as well as septal segments. [place] appears akinetic versus mild hypokinesis. Segments were noted again with LVOT obstruction from ABBI causing the moderate to severe eccentric MR. Gradients were not accurately measured due to contamination of the mitral regurgitation jet. Recommend to keep patient euvolemic. Patient responding well to the broad-spectrum antibiotics. Lactate improved to 2.5 from 16. WBC improving. Continues to be on ventilator and respiratory james stable. Troponins downtrended to 3.7. Patient continues to be on heparin drip for total of 48 hours for the possible NSTEMI. Aspirin for now and no statin in view of the elevated LFTs. NSTEMI mostly secondary to type II troponin with supply/demand mismatch. Will perform cardiac catheterization later when patient is hemodynamically stable to rule out any underlying CAD. Patient has mostly cirrhosis based on the CT scan as well as the history with significant alcohol abuse with multiple beers as well as bottle of hard liquor every day for many years. Overall condition critical and prognosis appears poor 11/05/2024: Patient still intubated and sedated. Patient apparently had melena but hemoglobin has been stable. Placed on Protonix. Recommend to discontinue the heparin drip. Patient is improving with IV antibiotics and WBC decreased to 16 from 30K. Lactate is also down to 2.5. LFTs improving. Creatinine is also 0.8. BUN also decreased from 50-25. Patient appears to have significant alcohol withdrawal given his significant alcohol abuse as noted above and started on withdrawal protocol. No further pressor requirements at the present point of time. Recommend to continue to keep the patient euvolemic and avoid any aggressive diuresis. No cardiac procedures planned at the present point of time as patient is in significant alcohol withdrawal and continue medical management for now. GI following the patient further melena as well as the new diagnosis of cirrhosis. There is a high probability of sudden, clinically significant or life threatening deterioration in the patient condition which required the highest level of physician preparedness to intervene urgently. I have personally spent 35 minutes of critical care time, exclusive of time spent on any procedures, in evaluation and management of this critically ill patient. Management of rest of the medical conditions as per primary team and other consultants. Thank you for the consult and allowing me to participate in the care of the patient. Cardiology will continue to follow. Colin Brandt M.D. Interventional Cardiology
[2024-11-05] MEDS: POT PHOS 15 mMol in NS 250 ML 15 MMOL/250 ML BAG 62.5 MMOL IV (08:24)
[2024-11-05] MEDS: THIAMINE INJ 100 MG/ML VIAL 2 ML 200 MG IVP ×2 (08:25→21:12)
[2024-11-05] MEDS: ASPIRIN 81 MG CHEW GT (08:26)
[2024-11-05] MEDS: FOLIC ACID INJ 1 MG/0.2 ML IVP (08:26)
[2024-11-05] MEDS: PHENobarbital INJ 130 MG/1 ML VIAL IVP ×3 (10:25→19:43)
--- NOTE | 2024-11-05 10:31 | ESPR_ITS ---
<Statement entered by La Diaz MD - 11/06/24 08:39> TOTAL CC TIME: 45 MIN I saw and evaluated the patient. I reviewed the resident?s note and agree with findings and plan as documented in the resident?s note. Upon my evaluation, this patient had a high probability of imminent or life- threatening deterioration due to septic shock, acute hypoxic resp failure, alcohol withdrawals, which required my direct attention, intervention, and personal management. This time is exclusive of time spent on procedures, which are documented separately if performed. Hemodynamics are improving POP improving PNA improving - sputum clx non outside energy sales representatives develops extreme distress w/ sedation vacation and given hepatitis pattern - we are concerned for ETOH abuse - despite pt denying in ED Family (sister) confirmed our suspicion pt is on CIWA / thiamine/folic / phenobarb cont ICU care and management Documentation for date of: 11/05/24 Subjective Subjective Interval history: Mr. Trejo is a 49-year-old male with past medical history of hypertension and personal history of esophageal cancer status post-treatment in remission who presented to [facility] emergency department on 11/03/2024 with a chief complaint of weakness and shortness of breath. Patient seen in the emergency department, significantly tachypneic with increased work of breathing, patient reported that he had generalized weakness and fatigue for the last 2 weeks which did not improve and he developed significant severe shortness of breath today. Reported the shortness of breath to be progressive accompanied with coughing, denies any similar complains in the past and denies any sick contacts. Patient denies any recent fevers, chills, headache, weight loss and any other medical problems. Patient also complained that he had been under recent stress, unable to find a job has been looking for a job. ED physician consulted radiologic technology teacher for possible ICU admission, on examination in ED patient had increased work of breathing, tachypneic and respiratory rate 40s, requiring high flow nasal cannula, SpO2 100. Per review of labs it was noted that patient is lactic acidosis/metabolic acidosis with compensated respiratory alkalosis. Patient was given Lasix 20 mg IV x 1 considering underlying chest x- ray findings, bedside echo showed apical hypokinesis, case was discussed with cement mixer on-call, echocardiogram was ordered in ED. Considering patient continued to have increased work of breathing, patient signed a POLST form for full treatment full code, discussed with patient's sister and patient regarding intubation and central line placement. Patient provided consent patient was intubated by radiologic technology teacher team and postintubation right IJ triple-lumen central line placed. Patient admitted to the intensive care unit for acute hypoxic respiratory failure secondary to distributive shock, increased work of breathing. 11/04/24: Patient had black bowel movement overnight, 500 cc greenish fluid suctioned out of NG tube, was given aspirin earlier this morning, we will titrate down tidal volume lung protective volume goal 4 to 6 cc/kg, goal tidal volume for today is 320 will titrate down as patient tolerates, limited echo at bedside reviewed with technical services librarian, there is some concern of LVOT obstruction patient's pressor requirement has improved, plan to titrate down vaso and replace vaso with phenylephrine, will start patient on thiamine IV twice daily and folate IV daily. Pending limited echo results. 11/05/24: Continues to have black bowel movements, hemoglobin stable, change Protonix to twice daily, reached out to patient's sister today, per patient's sister he is a chronic alcoholic, reports that he at least drinks 2 large bottles of hard liquor along with beers on a daily basis, patient is requiring high doses sedation, agitated at times has significant alcohol withdrawal, started on phenobarbital every 6 hours, chlordiazepoxide 50 3 times daily and patient also has Versed 2 mg as needed for anxiety. Patient has been off pressors, stop stress dose steroids, continue thiamine and folate acid. Exam Vital Signs Temp Pulse Resp BP Pulse Ox O2 Del Method O2 Flow Rate 97.4 F 102 H 30 H 96/61 100 Trans-Tracheal Cannula 65 11/05/24 08:00 11/05/24 10:10 11/03/24 17:45 11/05/24 10:10 11/05/24 10:10 11/05/24 08:00 11/04/24 00:00 FiO2 30 11/05/24 10:10 Narrative Exam Physical Exam General: Intubated and sedated HEENT: Normocephalic, atraumatic, mucous membranes moist. NG tube noted. Right IJ triple-lumen catheter noted. Heart: Sinus Tachycardia, +Murmur Mitral area Lungs: B/L diffuse crackles Abdomen: Soft, nondistended, nontender. ?No guarding or rebound tenderness. Neurologic: Intubated and Sedated GCS 3T Extremities: No edema Skin: No rash or ecchymoses. Objective Labs 11/05/24 04:25 11/05/24 04:25 Labs: Laboratory Results - last 24 hr 11/03/24 11/04/24 11/04/24 15:44 09:50 16:36 WBC RBC Hgb Hct MCV MCH MCHC RDW Std Deviation Plt Count Neut % (Auto) Lymph % (Auto) [place] % (Auto) Eos % (Auto) Baso % (Auto) Neut # (Auto) Lymph # (Auto) [place] # (Auto) Eos # (Auto) Baso # (Auto) Immature Gran # (Auto) Absolute Nucleated RBC Immature Gran % Nucleated RBC % PT INR APTT 53.3 H D Puncture Site ABG pH ABG pCO2 ABG pO2 ABG HCO3 ABG O2 Saturation ABG Base Excess FiO2 Sodium Potassium Chloride Carbon Dioxide Anion Gap BUN Creatinine Estim Creat Clear Calc eGFR BUN/Creatinine Ratio Glucose Calculated Osmolality Lactic Acid 2.5 H Calcium Corrected Calcium Phosphorus Magnesium Total Bilirubin AST ALT Alkaline Phosphatase Total Protein Albumin Globulin Albumin/Globulin Ratio Coccidioides IgM Ab Negative Blood Type Antibody Screen Blood Bank Wristband ID 11/05/24 11/05/24 11/05/24 00:44 04:25 04:49 WBC 16.6 H D RBC 2.64 L Hgb 8.4 L Hct 25.0 L MCV 95 MCH 31.8 MCHC 33.6 RDW Std Deviation 60.7 H Plt Count 225 D Neut % (Auto) 81 H Lymph % (Auto) 8 L [place] % (Auto) 9 Eos % (Auto) 0 Baso % (Auto) 0 Neut # (Auto) 13.5 H Lymph # (Auto) 1.3 [place] # (Auto) 1.5 H Eos # (Auto) 0.0 Baso # (Auto) 0.0 Immature Gran # (Auto) 0.21 H Absolute Nucleated RBC 0.83 H Immature Gran % 1 H Nucleated RBC % 5 H PT 12.4 H D INR 1.1 APTT 43.4 H 45.5 H Puncture Site Right Radial ABG pH 7.48 H ABG pCO2 35 ABG pO2 74 L D ABG HCO3 26 ABG O2 Saturation 96 ABG Base Excess 3 FiO2 21 Sodium 147 H Potassium 3.8 Chloride 111 H Carbon Dioxide 24.8 Anion Gap 11 BUN 25 H Creatinine 0.8 D Estim Creat Clear Calc 84.4 eGFR > 60 BUN/Creatinine Ratio 31 H Glucose 145 H D Calculated Osmolality 299 H Lactic Acid Calcium 7.7 L Corrected Calcium 8.5 Phosphorus 1.9 L Magnesium 2.0 Total Bilirubin 0.7 AST 232 H ALT 142 H Alkaline Phosphatase 81 Total Protein 5.2 L Albumin 3.0 L Globulin 2.2 L Albumin/Globulin Ratio 1.4 Coccidioides IgM Ab Blood Type O Negative Antibody Screen NEGATIVE Blood Bank Wristband ID Yes ABG Interpretation ABG results: 11/03/24 11/03/24 11/03/24 11:20 14:11 17:06 ABG pH 7.35 7.34 L 7.20 L D ABG pCO2 21 L 20 L 45 D ABG pO2 193 H 82 L D 78 L ABG HCO3 12 L 11 L 16 L ABG O2 Saturation 100 H 96 91 ABG Base Excess -12 L -14 L -12 L VBG pH VBG pCO2 VBG pO2 VBG Base Excess 11/04/24 11/04/24 11/04/24 00:00 04:29 05:15 ABG pH 7.50 H D ABG pCO2 30 L D ABG pO2 109 H D ABG HCO3 23 ABG O2 Saturation 100 H ABG Base Excess 1 VBG pH 7.43 7.52 VBG pCO2 35 L 27 L VBG pO2 43 57 VBG Base Excess -1 0 11/05/24 04:49 ABG pH 7.48 H ABG pCO2 35 ABG pO2 74 L D ABG HCO3 26 ABG O2 Saturation 96 ABG Base Excess 3 VBG pH VBG pCO2 VBG pO2 VBG Base Excess Quality Measures Quality Measures sepsis Current suspected stage: severe sepsis Possible source: pulmonary Blood cultures ordered: completed in ED Antibiotic ordered: Yes Assessment & Plan Assessment Current Active Medications: Generic Name Dose Route Start Last Admin Trade Name Freq PRN Reason Stop Dose Admin Acetaminophen 325 mg 11/05/24 09:48 Acetaminophen 325 Mg Tablet PO 12/03/24 15:31 Q6H PRN Fever >101.5 Aspirin 81 mg 11/04/24 09:00 11/05/24 08:26 Aspirin 81 Mg Chew GT 12/04/24 08:59 81 mg QDAY BETO Administration Atorvastatin Calcium 40 mg 11/03/24 21:00 11/04/24 21:01 Atorvastatin Calcium 20 Mg Tablet PO 12/03/24 20:59 40 mg HS BETO Administration Chlordiazepoxide HCl 50 mg 11/05/24 10:00 11/05/24 10:06 Chlordiazepoxide Hcl 25 Mg Capsule PO 11/06/24 06:01 50 mg Q8HR BETO Administration Folic Acid 1 mg 11/04/24 09:15 11/05/24 08:26 Folic Acid Inj 1 Mg/0.2 Ml IVP 12/04/24 09:14 1 mg QDAY BETO Administration Heparin Sodium (Porcine) 5,000 unit 11/05/24 14:00 Heparin Sod Inj 5000 Unit/Ml Vial SC 11/19/24 13:59 Q8HR BETO Propofol 1,000 mg in 100 mls @ 1.802 mls/hr 11/03/24 13:48 11/05/24 07:42 Diprivan Ivpb IV 12/03/24 13:47 20 mcg/kg/min .Q24H PRN 7.207 mls/hr PER PROTOCOL Titration Protocol 5 MCG/KG/MIN Norepinephrine/Dextrose 8 mg in 250 mls @ 5.63 mls/hr 11/03/24 14:57 11/05/24 05:00 Levophed In D5w 8mg/250ml IV 12/03/24 14:56 0 mcg/kg/min .Q24H PRN 0 mls/hr PER PROTOCOL Titration Protocol 0.05 MCG/KG/MIN Fentanyl Citrate 2,500 mcg in 250 mls @ 2.5 mls/hr 11/03/24 15:27 11/05/24 07:45 Sublimaze Inj 2,500 Mcg/250 Ml Bag IV 11/08/24 15:26 100 mcg/hr .Q24H PRN 10 mls/hr PER PROTOCOL Titration Protocol 25 MCG/HR Piperacillin/Tazobactam/Dextrose 3.375 gm in 50 mls @ 12.5 mls/hr 11/03/24 22:00 11/05/24 05:00 Zosyn IV 11/10/24 21:59 12.5 mls/hr Q8HR BETO Administration Potassium Phosphate 15 mmol in 250 mls @ 62.5 mls/hr 11/05/24 07:56 11/05/24 08:24 Pot Phos 15 Mmol In Ns 250 Ml IV 11/05/24 11:55 62.5 mls/hr X1 ONE Administration Midazolam HCl 2 mg 11/03/24 17:56 11/05/24 07:50 Midazolam Inj 1 Mg/Ml Vial 2 Ml IVP 11/08/24 17:59 2 mg Q2HR PRN Administration Anxiety or Agitation Ondansetron HCl 4 mg 11/03/24 15:32 Ondansetron Inj 2 Mg/Ml Inj 2 Ml IVP 12/03/24 15:31 Q6H PRN NAUSEA OR VOMITING Protocol Pantoprazole Sodium 40 mg 11/05/24 21:00 Pantoprazole Inj 40 Mg Vial IVP 12/05/24 20:59 BID BETO Sennosides 1 tab 11/04/24 09:00 11/05/24 08:28 Senna Tablet PO 12/04/24 08:59 1 tab QDAY BETO Administration Protocol Sodium Chloride 3 ml 11/03/24 10:58 Sodium Chloride Rt Anastacia 0.9% 3 Ml Nebu INH 12/03/24 10:57 PRN PRN SOLN Thiamine HCl 200 mg 11/04/24 09:15 11/05/24 08:25 Thiamine Inj 100 Mg/Ml Vial 2 Ml IVP 11/09/24 09:14 200 mg BID BETO Administration Plan Summary: Mr. Trejo is a 49-year-old male with past medical history of hypertension and personal history of esophageal cancer status post-treatment in remission who presented to [facility] emergency department on 11/03/2024 with a chief complaint of weakness and shortness of breath. Neurological Patient A&O x 3 on presentation, currently is intubated and sedated. #Alcohol Dependence with severe withdrawal Diagnostic workup: - Per patient's sister patient is a heavy alcohol user, drinks about 2 large bottles and multiple cans of beer on a daily basis - Urine tox screen and blood alcohol level negative on presentation Treatment: -Phenobarbital every 6 hours, hold if patient is improving -Chlordiazepoxide 50 mg every 8 hours -Versed as needed for agitation -Continue sedation with propofol and fentanyl, RASS score -2 Follow-up: -Plan to wean him off sedation and transition to alcohol withdrawal management Cardiology #Distributive shock likely septic secondary to pneumonia, resolving Differential diagnosis: -Distributive shock: Likely septic in setting of severe pneumonia, patient had significantly elevated lactate on presentation, Pro-Jonny elevated. -Obstructive shock: Patient has severe mitral regurgitation, some evidence of LVOT obstruction ?Secondary to sigmoid septum and the hypercontractile basal ventricular wall, CTA chest negative for PE, chest x-ray negative for pneumothorax -Cardiogenic shock: Bedside echocardiogram shows apical hypokinesis, formal echo shows apical akinesis, heart failure with reduced ejection fraction -Hypovolemic/hemorrhagic shock, ruled out: Low suspicion patient has no active bleeding, no suspicion of hypovolemia Diagnostic workup: -Lactate on presentation 16, patient has high anion gap metabolic acidosis, Pro- Jonny 1.93 -CTA chest abdomen pelvis shows mild heart failure, significant right lung and left base pneumonia, cirrhosis, large right inguinal hernia -ECHO 11/03: Normal LV size and moderate LV systolic dysfunction with an EF of 35 to 40%. Apical akinesis with hypokinesis of the mid to apical anterior, anterolateral and apical septal segments indicating possible Takotsubo syndrome versus LAD involvement. RV Normal in size and function. 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 Severe LA dilatation. Trace AI Moderate TR with mild RA dilatation. No Pericardial Effusion. IVC not well-visualized Treatment: -Continue IV Zosyn (11/03- and vancomycin (11/03-11/05), vancomycin discontinued, MRSA nasal screen negative -Patient weaned off of pressors, currently requiring no pressor support -Follow limited echocardiogram -Stop stress dose steroids -Patient seems euvolemic for now, hold IV fluids versus diuresis -Troponin down trended, lactate down trended Follow-up: - Continue to keep patient off pressors - Follow cultures #ACS workup-likely NSTEMI type II vs Takotsubo syndrome Takotsubo syndrome #Elevated troponin #T wave inversion in EKG Differential diagnosis: NSTEMI type I, NSTEMI type II demand ischemia in setting of shock, Takotsubo syndrome Diagnostic workup: -Patient had troponin elevation of 4.326 on presentation, EKG done multiple times shows T wave inversion in V3-V6, lead II -Patient does not have any cardiac chest pain, though does report a fluttering in the chest, recent stressor patient is looking for a job -Bedside echocardiogram showed apical akinesis/hypokinesis, cardiology consulted in the ED -ECHO 11/03: Normal LV size and moderate LV systolic dysfunction with an EF of 35 to 40%. Apical akinesis with hypokinesis of the mid to apical anterior, anterolateral and apical septal segments indicating possible Takotsubo syndrome versus LAD involvement. RV Normal in size and function. 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 Severe LA dilatation. Trace AI Moderate TR with mild RA dilatation. No Pericardial Effusion. IVC not well-visualized Treatment: -Received aspirin loading dose, continue aspirin daily -Discontinue heparin GTT (11/03-11/05) -Cardiology consulted, appreciate recommendations -Troponin downtrended -Consider further workup possible cardiac cath, PABLITO per cardiology recommendations Follow-up: - Follow limited echocardiogram #Heart failure with reduced ejection fraction, EF 35 to 40% #Moderate LV systolic dysfunction, apical akinesis #Moderate to severe eccentric MR, #?ABBI, LVOT obstruction, sigmoid septum Differential diagnosis: LAD occlusion, Takotsubo syndrome Diagnostic workup: -ECHO 11/03: Normal LV size and moderate LV systolic dysfunction with an EF of 35 to 40%. Apical akinesis with hypokinesis of the mid to apical anterior, anterolateral and apical septal segments indicating possible Takotsubo syndrome versus LAD involvement. RV Normal in size and function. 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 Severe LA dilatation. Trace AI Moderate TR with mild RA dilatation. No Pericardial Effusion. IVC not well-visualized - CTA chest does show mild heart failure, chest x-ray in ED did show bilateral pneumonia versus heart failure. Treatment: -Patient was given Lasix 20 IV x 1, IV fluids in ED -Currently patient seems euvolemic, will hold IV fluids/Lasix Follow-up: - Follow limited echocardiogram Pulmonary #Acute hypoxic respiratory failure secondary to pneumonia, respiratory failure in setting of shock Differential diagnosis: Pneumonia, increased metabolic demand in setting of shock, increased work of breathing Diagnostic workup: -Initial ABG shows pH 7.35, pCO2 21, pO2 193, bicarb 12, patient on high flow nasal cannula in ED, significantly tachypneic, increased work of breathing, respiratory rate in 40s, accessory muscle use noted. -Patient does have underlying shock, significantly elevated lactate, Pro-Jonny elevated, CTA shows severe right-sided pneumonia and left base pneumonia Treatment: -Goal tidal volumes 320mL for lung protective 4 to 6 cc/kg, will down titrate as tolerated -Monitor end-tidal CO2, if end-tidal CO2 greater than 35 consider VBG -On mechanical ventilation, volume control -Optimize settings per blood gas Follow-up: - Follow VBG as needed #Pneumonia Differential diagnosis: Aspiration pneumonia, community-acquired pneumonia Diagnostic workup: -Patient denies any sick contacts, although CTA shows significant right-sided pneumonia and left base pneumonia -Does have history of esophageal cancer in remission, suspicion of aspiration secondary to dysphagia -Bedside flu, COVID negative, cocci IgM negative -MRSA nasal screen negative Treatment: -Continue IV Zosyn -Follow cultures, Legionella Follow-up: - Follow results Gastrointestinal #Alcohol-related liver disease #Transaminitis Diagnostic workup: -CTA abdomen shows evidence of cirrhosis, clinically no thrombocytopenia, INR on presentation 1.4, albumin on presentation 3.1. No ascites noted low clinical suspicion of cirrhosis -Urine tox screen negative, blood alcohol level negative, salicylate level negative -Patient does have social factors, was unemployed, AST ALT pattern greater than 2 is to 1 -Heavy alcohol use, 2 bottles of alcohol daily basis with beer -Hepatitis panel unremarkable Treatment: - Treat alcohol withdrawal as above - IV thiamine twice daily - IV folate daily - Follow liver panel in a.m. Follow-up: -Follow CMP in a.m. #Personal history of esophageal cancer, in remission #Dark stool Differential diagnosis: Patient is status post esophagectomy, currently low clinical suspicion of GI bleed Diagnostic workup: -Patient reported self history of esophageal cancer reports completed treatment heart disease in remission -NG tube placed by gastroenterology -History of esophagectomy, there is suspicion of underlying dysphagia -Patient had large dark bowel movement 11/04, hemoglobin down trended as well, no active bleeding as of now Treatment: -GI consulted to place NG tube -Consider GI workup if patient has dark/bloody stools -Change Protonix to twice daily -Patient will benefit from speech therapy referral once extubated -Type and screen done Follow-up: - Monitor bowel movement - Started on tube feeds, will advance to goal #Large right inguinal hernia #Dilated bowel loops Differential diagnosis: Incarcerated hernia, ileus Diagnostic workup: -CTA abdomen pelvis shows dilated bowel loops, there is a large right inguinal hernia noted on imaging as well -On physical exam hernia is reducible, low suspicion of incarceration Treatment: -General Surgery consulted, appreciate recommendations Follow-up: - Follow-up with general surgery and gastroenterology Renal/Genitourinary #Acute kidney injury, improving Differential diagnosis: Prerenal, renal in setting of shock, low suspicion of cardiorenal Diagnostic workup: -Patient on presentation had acute kidney injury, creatinine 1.6,BUN 53, patient has good urine output had about 800 cc since admission. -Urine sodium less than 15, potassium 31, chloride less than 20-after 2 L IV fluid Treatment: - Patient was given Lasix 20 IV x 1, 2 L fluid in ED Follow-up: - Follow renal function in a.m. - Monitor urine output #Hypernatremia Differential diagnosis: Hypovolemic hyponatremia Diagnostic workup: -Sodium 146 on presentation, was given 2 L in ED -Urine sodium less than 15 Treatment: - Was given IV fluid in ED Follow-up: - Follow sodium in a.m. #Lactic acidosis, resolved #High anion gap metabolic acidosis, resolved Differential diagnosis: In setting of shock/sepsis Diagnostic workup: -Lactate 16 on presentation, down trended with IV fluid last 13.1 Follow-up: - Follow lactic Endocrine No active problems Hematology #Leukocytosis, improving Diagnostic workup: -Significantly elevated WBC count on presentation Treatment: -Follow CBC in a.m., likely in setting of sepsis #Normocytic normochromic anemia Differential diagnosis: Nutritional deficiency, in the setting of sepsis, GI bleed, low suspicion of hemolysis Diagnostic workup: -Hemoglobin 8.1 on presentation Treatment: -Follow CBC in a.m., will consider further workup #Thrombocytosis, improving Diagnostic workup: -Platelet count significantly elevated on presentation Treatment: -Received IV fluids Follow-up: - Follow CBC in a.m. Infectious Disease #Pneumonia #Bacteriuria - Follow cultures, treatment as above Integumentary No active problems DVT prophylaxis: SC heparin every 8 hours GI prophylaxis: IV Protonix Diet: NG tube feeds, vital AF Tubes: Endotracheal tube Lines: Peripheral IV, right IJ triple-lumen Code status: Full code Case discussed with Attending Dr. Diaz. Dom Darby MD Internal medicine PGY2 Disclaimer: This note was dictated by speech recognition. Minor errors in technology recruiter may be present due to voice recognition software.
[2024-11-05 10:57] LABS: Cocci Serology, IgG Negative (Negative)
[2024-11-05 11:22] LABS: Path Review Blood Smear Sent to Pathologist
[2024-11-05] MEDS: HEPARIN SOD INJ 5000 UNIT/ML VIAL SC ×2 (13:28→21:13)
--- NOTE | 2024-11-05 16:11 | PC.SS ---
Patient currently in ICU on mechanical ventilator.? Assessment information obtained from patient?s sister.? Patient resides at home with sister, Hilaria Whittington.? Patient does not utilize DME to assist with ambulation.? Patient does not utilize home oxygen.? Patient possesses ability to complete ADL?s independently.? Patient?s surrogate medical decision maker is sister, Hilaria Whittington.? Patient utilizes [facility] for PCP services.? Patient does not possess any specialty providers.? Patient possesses a history of high blood pressure per sister.? In addition patient?s sister voiced concern over patient possessing underlying depression.? Patient does not possess a diagnosis of depression nor has the patient been prescribed medication for depression.? Sister stated that at times patient is withdrawn and isolates.? TECHNICAL SUPPORT ANALYST informed patient?s sister that resources to address mental health can be provided to the patient once patient returns to baseline.? Patient?s sister added that patient possesses excessive drinking.? Discharge plan is for the patient to return home at the time of discharge.? Family will provide transportation on behalf of the patient.? No discharge needs identified at current time.? No further intervention required at this time, social media executive will be available to address any further concerns.? Next of Kin: Hilaria Whittington D/C Plan: Home
--- NOTE | 2024-11-05 19:27 | PD.IMPROG ---
Documentation for date of: 11/05/24 Subjective Subjective Interval history: Patient evaluated in the ICU Placed NGT to the right nostril is working very well and the enteral hyperalimentation at 50 cc an hour with no gastric residue issues Exam Vital Signs Temp Pulse Resp BP Pulse Ox O2 Del Method O2 Flow Rate 99.0 F 106 H 30 H 95/65 100 Mechanical Ventilation 65 11/05/24 16:00 11/05/24 18:45 11/03/24 17:45 11/05/24 18:45 11/05/24 18:45 11/05/24 16:00 11/04/24 00:00 FiO2 30 11/05/24 18:45 Objective Labs 11/05/24 04:25 11/05/24 04:25 Labs: Laboratory Results - last 24 hr 11/03/24 11/05/24 11/05/24 15:44 00:44 04:25 WBC 16.6 H D RBC 2.64 L Hgb 8.4 L Hct 25.0 L MCV 95 MCH 31.8 MCHC 33.6 RDW Std Deviation 60.7 H Plt Count 225 D Neut % (Auto) 81 H Lymph % (Auto) 8 L Towns % (Auto) 9 Eos % (Auto) 0 Baso % (Auto) 0 Neut # (Auto) 13.5 H Lymph # (Auto) 1.3 Towns # (Auto) 1.5 H Eos # (Auto) 0.0 Baso # (Auto) 0.0 Immature Gran # (Auto) 0.21 H Absolute Nucleated RBC 0.83 H Immature Gran % 1 H Nucleated RBC % 5 H Smear Path Review Sent to Pathologist PT 12.4 H D INR 1.1 APTT 43.4 H 45.5 H Puncture Site ABG pH ABG pCO2 ABG pO2 ABG HCO3 ABG O2 Saturation ABG Base Excess FiO2 Sodium 147 H Potassium 3.8 Chloride 111 H Carbon Dioxide 24.8 Anion Gap 11 BUN 25 H Creatinine 0.8 D Estim Creat Clear Calc 84.4 eGFR > 60 BUN/Creatinine Ratio 31 H Glucose 145 H D Calculated Osmolality 299 H Calcium 7.7 L Corrected Calcium 8.5 Phosphorus 1.9 L Magnesium 2.0 Total Bilirubin 0.7 AST 232 H ALT 142 H Alkaline Phosphatase 81 Total Protein 5.2 L Albumin 3.0 L Globulin 2.2 L Albumin/Globulin Ratio 1.4 Coccidioides IgG Ab Negative Blood Type O Negative Antibody Screen NEGATIVE Blood Bank Wristband ID Yes 11/05/24 04:49 WBC RBC Hgb Hct MCV MCH MCHC RDW Std Deviation Plt Count Neut % (Auto) Lymph % (Auto) Towns % (Auto) Eos % (Auto) Baso % (Auto) Neut # (Auto) Lymph # (Auto) Towns # (Auto) Eos # (Auto) Baso # (Auto) Immature Gran # (Auto) Absolute Nucleated RBC Immature Gran % Nucleated RBC % Smear Path Review PT INR APTT Puncture Site Right Radial ABG pH 7.48 H ABG pCO2 35 ABG pO2 74 L D ABG HCO3 26 ABG O2 Saturation 96 ABG Base Excess 3 FiO2 21 Sodium Potassium Chloride Carbon Dioxide Anion Gap BUN Creatinine Estim Creat Clear Calc eGFR BUN/Creatinine Ratio Glucose Calculated Osmolality Calcium Corrected Calcium Phosphorus Magnesium Total Bilirubin AST ALT Alkaline Phosphatase Total Protein Albumin Globulin Albumin/Globulin Ratio Coccidioides IgG Ab Blood Type Antibody Screen Blood Bank Wristband ID Impressions Impression: Enteral hyperalimentation via the NGT Acute respiratory failure hypoxic endotracheal intubation mechanical ventilation ABG Interpretation ABG results: 11/03/24 11/03/24 11/03/24 11:20 14:11 17:06 ABG pH 7.35 7.34 L 7.20 L D ABG pCO2 21 L 20 L 45 D ABG pO2 193 H 82 L D 78 L ABG HCO3 12 L 11 L 16 L ABG O2 Saturation 100 H 96 91 ABG Base Excess -12 L -14 L -12 L VBG pH VBG pCO2 VBG pO2 VBG Base Excess 11/04/24 11/04/24 11/04/24 00:00 04:29 05:15 ABG pH 7.50 H D ABG pCO2 30 L D ABG pO2 109 H D ABG HCO3 23 ABG O2 Saturation 100 H ABG Base Excess 1 VBG pH 7.43 7.52 VBG pCO2 35 L 27 L VBG pO2 43 57 VBG Base Excess -1 0 11/05/24 04:49 ABG pH 7.48 H ABG pCO2 35 ABG pO2 74 L D ABG HCO3 26 ABG O2 Saturation 96 ABG Base Excess 3 VBG pH VBG pCO2 VBG pO2 VBG Base Excess Assessment & Plan A&P Narrative 49 years old male with acute respiratory failure bilateral pneumonia acute coronary syndrome mechanically ventilated with previous history of Esophageal carcinoma status posttreatment and supposedly in remission Difficulty placing the NGT only OGT in Plan Will attempt to place a 14 [place] NGT either via nasogastric approach or oral approach Will follow the patient # Transaminitis most likely due to hypoxic hepatitis Thank you very much for the opportunity to participate in the care of this patient Time Spent With Patient Time: Total time spent is greater than 50% in coordination of care (as documented) at patient's floor/unit and/or counseling patient:
[2024-11-05] MEDS: PROPOFOL 1,000 MG IVPB 1,000 MG/100 ML VIAL 7.207 MG IV (20:00)
[2024-11-05] MEDS: ATORVASTATIN CALCIUM 20 MG TABLET 40 MG PO (21:13)
[2024-11-05 21:29] LABS: Vancomycin,Trough 3.1 mcg/mL (5.0-10.0)
[2024-11-06] VITALS (104 sets, daily range): BP systolic 81–132; BP diastolic 49–89; PULSE 103–122; RESP 11–29; TEMP 36.6–37.3; O2SAT 97–100; BMI 18.2
[2024-11-06] MEDS: PHENobarbital INJ 130 MG/1 ML VIAL IVP ×2 (01:43→08:40)
[2024-11-06] MEDS: fentaNYL 2,500 MCG/250 ML BAG 2,500 MCG/250 ML BAG 15 MCG IV (01:44)
[2024-11-06 04:11] LABS: Base Excess 2 (-3-3); HCO3 27 mEq/L (20-26); Inspired Oxygen, FIO2 30 %; O2 Saturation 99 % (91-98); PCO2 43 mmHg (32.0-48.0); PO2 108 mmHg (83-108); pH, Arterial 7.41 (7.35-7.45)
[2024-11-06 04:12] LABS: Allen Test Performed/OK; Puncture Site Right Femoral
--- NOTE | 2024-11-06 05:10 | XR_ITS ---
Examination: AP chest single view TECHNIQUE: AP portable upright chest single view Date and time: November 06, 2024 0700 hours Comparison November 05, 2024 INDICATIONS: Hypoxic respiratory failure postintubation FINDINGS: Endotracheal tube tip 4.5 cm above go Right internal jugular central line tip right atrium Mild prominence left ventricle Mild edema versus pneumonia at the lung bases Orogastric tube in the stomach satisfactory position IMPRESSION: Mild edema versus pneumonia at the lung bases Endotracheal tube tip 4.5 cm above go Right internal jugular central line tip right atrium no pneumothorax
[2024-11-06] MEDS: PIPER/TAZO 3.375 GM PREMIX 3.375 GM/50 ML BAG IV ×3 (05:31→21:00)
[2024-11-06] MEDS: HEPARIN SOD INJ 5000 UNIT/ML VIAL SC ×3 (05:31→21:00)
[2024-11-06 06:20] LABS: Basophils # (Auto) 0.0 Thou/mm3 (0.0-0.2); Basophils % (Auto) 0 % (0-2.5); Eosinophils # (Auto) 0.4 Thou/mm3 (0.0-0.5); Eosinophils % (Auto) 3 % (0-10); Hematocrit 27.5 % (41.0-53.0); Immature Granulocytes Auto 0.34 Thou/mm3 (0.00-0.00); Lymphocytes # (Auto) 1.7 Thou/mm3 (1.0-4.8); Lymphocytes % (Auto) 11 % (10-50); Mean Corpuscular HGB Conc 31.6 g/dl (31.0-37.0); Mean Corpuscular Hemoglobin 31.3 pg (25.0-35.0); Mean Corpuscular Volume 99 fL (80-100); Monocytes # (Auto) 1.8 Thou/mm3 (0.0-0.8); Monocytes % (Auto) 12 % (0-12); Neutrophils # (Auto) 11.4 Thou/mm3 (1.8-7.7); Neutrophils % (Auto) 73 % (37-80); Nucleated Red Blood Cell # 1.14 Thou/mm3 (0.00-0.00); Nucleated Red Blood Cell % 7 /100 WBC (0); Platelet Count 200 Thou/mm3 (140-440); RDW Standard Deviation 63.1 fL (35.1-43.9); Red Blood Count 2.78 Miln/mm3 (4.50-5.90); White Blood Count 15.7 Thou/mm3 (3.8-10.6)
[2024-11-06 06:26] LABS: Hemoglobin 8.7 g/dL (13.5-16.0); INR 1.0 (0.9-1.3); Partial Thromboplastin Time 28.7 Seconds (22.0-36.0); Prothrombin Time 11.3 Seconds (9.0-12.2)
[2024-11-06 06:58] LABS: Alanine Aminotransferase 174 U/L (10-49); Albumin, Serum 3.2 gm/dL (3.5-5.0); Albumin/Globulin Ratio 1.3 (1.2-2.2); Alkaline Phosphatase 117 U/L (46-116); Anion Gap 9 (7-16); Aspartate Amino Transferase 239 U/L (0-34); BUN/Creatinine Ratio 30 Ratio (12-20); Bilirubin,Total 0.6 mg/dL (0.3-1.2); Blood Urea Nitrogen 27 mg/dL (9-23); Calcium 7.6 mg/dL (8.3-10.6); Calcium (Corrected) 8.2 mg/dL (8.5-10.1); Carbon Dioxide 26.9 mMol/L (20.0-31.0); Chloride 111 mMol/L (98-107); Creatinine (Component) 0.9 mg/dL (0.6-1.3); Estimated Creatinine Clearance 75.1 mL/min (>60); Globulin 2.5 gm/dL (2.3-3.5); Glucose 163 mg/dL (74-106); Magnesium 2.0 mg/dL (1.6-2.6); Osmolality,Calculated 301 (275-295); Phosphorous 2.5 mg/dL (2.4-5.1); Potassium 3.8 mMol/L (3.4-5.1); Sodium 147 mMol/L (136-145); Total Protein 5.7 gm/dL (5.7-8.2); eGFR > 60 See Note
[2024-11-06] MEDS: ASPIRIN 81 MG CHEW GT (08:41)
[2024-11-06] MEDS: THIAMINE INJ 100 MG/ML VIAL 2 ML 200 MG IVP ×2 (08:41→20:22)
[2024-11-06] MEDS: FOLIC ACID INJ 1 MG/0.2 ML IVP (08:41)
[2024-11-06] MEDS: FUROSEMIDE INJ 10 MG/ML VIAL 2 ML 20 MG IVP (10:01)
[2024-11-06] MEDS: CALCIUM GLUC/NS 1000MG IVPB 1,000 MG/50 ML BAG 50 MG IV (10:33)
--- NOTE | 2024-11-06 11:13 | ESPR_ITS ---
<Statement entered by Dom Darby MD - 11/07/24 07:16> Patient was seen and examined at bedside. I agree on the assessment and plan on this note as documented by resident Vern Fairchild PGY1. Patient seen examined at bedside in ICU today, patient is deeply sedated received chlordiazepoxide 4 doses 50 mg over yesterday and today, 3 doses of phenobarbital yesterday. Plan today is to wean patient off of sedation and wake him up, if patient has agitation we will consider Precedex drip and Versed pushes as needed. We will continue IV thiamine and folic acid, for hypocalcemia patient will be given calcium gluconate x 1. For heart failure with reduced ejection fraction we will give Lasix 20 x 1, lisinopril 2.5 x 1 and Coreg 3.125 x 1. If patient's blood pressure tolerates will give another dose of Coreg in the evening. He will continue Zosyn for pneumonia, patient is not requiring any pressors currently, mechanical ventilation lung protective strategies for now, continue current settings. Patient continues to have dark stools, will benefit from GI workup once fairly stable. Patient has hypernatremia, free water deficit calculated 1.6 L, will benefit from increasing free water flushes 90 cc/h for management of hypernatremia considering patient will also be getting Lasix. We will treat underlying hypocalcemia with calcium gluconate, hemoglobin is fairly stable, will continue to monitor. Patient is cachectic and has Severe PCM, snuff blender following. Plan today is to wean patient off of sedation and will manage alcohol withdrawal with as needed Ativan and Precedex drip. Case discussed with attending Dr. Jet Darby MD PGY-2 Documentation for date of: 11/06/24 Subjective Subjective Interval history: Mr. Trejo is a 49-year-old male with past medical history of hypertension and personal history of esophageal cancer status post-treatment in remission who presented to [facility] emergency department on 11/03/2024 with a chief complaint of weakness and shortness of breath. Patient seen in the emergency department, significantly tachypneic with increased work of breathing, patient reported that he had generalized weakness and fatigue for the last 2 weeks which did not improve and he developed significant severe shortness of breath today. Reported the shortness of breath to be progressive accompanied with coughing, denies any similar complains in the past and denies any sick contacts. Patient denies any recent fevers, chills, headache, weight loss and any other medical problems. Patient also complained that he had been under recent stress, unable to find a job has been looking for a job. ED physician consulted body man for possible ICU admission, on examination in ED patient had increased work of breathing, tachypneic and respiratory rate 40s, requiring high flow nasal cannula, SpO2 100. Per review of labs it was noted that patient is lactic acidosis/metabolic acidosis with compensated respiratory alkalosis. Patient was given Lasix 20 mg IV x 1 considering underlying chest x- ray findings, bedside echo showed apical hypokinesis, case was discussed with tool drawing checker on-call, echocardiogram was ordered in ED. Considering patient continued to have increased work of breathing, patient signed a POLST form for full treatment full code, discussed with patient's sister and patient regarding intubation and central line placement. Patient provided consent patient was intubated by body man team and postintubation right IJ triple-lumen central line placed. Patient admitted to the intensive care unit for acute hypoxic respiratory failure secondary to distributive shock, increased work of breathing. 11/04/24: Patient had black bowel movement overnight, 500 cc greenish fluid suctioned out of NG tube, was given aspirin earlier this morning, we will titrate down tidal volume lung protective volume goal 4 to 6 cc/kg, goal tidal volume for today is 320 will titrate down as patient tolerates, limited echo at bedside reviewed with licensed psychiatric technician, there is some concern of LVOT obstruction patient's pressor requirement has improved, plan to titrate down vaso and replace vaso with phenylephrine, will start patient on thiamine IV twice daily and folate IV daily. Pending limited echo results. 11/05/24: Continues to have black bowel movements, hemoglobin stable, change Protonix to twice daily, reached out to patient's sister today, per patient's sister he is a chronic alcoholic, reports that he at least drinks 2 large bottles of hard liquor along with beers on a daily basis, patient is requiring high doses sedation, agitated at times has significant alcohol withdrawal, started on phenobarbital every 6 hours, chlordiazepoxide 50 3 times daily and patient also has Versed 2 mg as needed for anxiety. Patient has been off pressors, stop stress dose steroids, continue thiamine and folate acid. 11/06/24: Versed as needed. Precedex as needed for agitation. Continue thiamine and folic acid. Hypocalcemic, calcium gluconate X 1. Lasix 20mg x 1, lisinopril 2.5mg x 1, carvedilol 3.125 mg x 1, consider one-time dose of carvedilol 3.125 mg in the evening if blood pressure tolerates. Plan to wean the patient off of sedation today. Exam Vital Signs Temp Pulse Resp BP Pulse Ox O2 Del Method O2 Flow Rate 98.3 F 110 H 30 H 126/81 98 Mechanical Ventilation 65 11/06/24 08:00 11/06/24 10:27 11/03/24 17:45 11/06/24 10:27 11/06/24 10:11/06/24 08:00 11/04/24 00:00 FiO2 21 11/06/24 10:27 Narrative Exam General: Intubated, sedated, cachectic, temporal wasting. Neurologic: GCS 6T, withdraws to pain lower extremities bilaterally but not upper. HEENT: Normocephalic, atraumatic, mucous membranes dry. Pupils reactive to light. Heart: Tachycardic, systolic murmur at the mitral listening post left fifth intercostal space sternal border. Lungs: Pectus excavatum, clear to auscultation bilaterally with no wheezing or crackles in the upper lobes, decreased breath sounds in the lower lobes bilaterally. Abdomen: Right sided reducible inguinal hernia. Extremities: 1+ pitting edema in the distal upper extremities bilaterally. No edema in the lower extremities bilaterally. 2+ radial and dorsalis pedis pulses bilaterally. Bilateral knee effusions. Skin: Cool. Dry. No rash or ecchymoses. Objective Labs 11/07/24 04:36 11/07/24 04:36 Labs: Laboratory Results - last 24 hr 11/05/24 11/05/24 11/06/24 04:25 20:40 03:40 WBC RBC Hgb Hct MCV MCH MCHC RDW Std Deviation Plt Count Neut % (Auto) Lymph % (Auto) [place] % (Auto) Eos % (Auto) Baso % (Auto) Neut # (Auto) Lymph # (Auto) [place] # (Auto) Eos # (Auto) Baso # (Auto) Immature Gran # (Auto) Absolute Nucleated RBC Immature Gran % Nucleated RBC % Smear Path Review Sent to Pathologist PT INR APTT Puncture Site Right Femoral ABG pH 7.41 ABG pCO2 43 ABG pO2 108 D ABG HCO3 27 H ABG O2 Saturation 99 H ABG Base Excess 2 FiO2 30 Sodium Potassium Chloride Carbon Dioxide Anion Gap BUN Creatinine Estim Creat Clear Calc eGFR BUN/Creatinine Ratio Glucose Calculated Osmolality Calcium Corrected Calcium Phosphorus Magnesium Total Bilirubin AST ALT Alkaline Phosphatase Total Protein Albumin Globulin Albumin/Globulin Ratio Vancomycin Trough 3.1 L 11/06/24 05:25 WBC 15.7 H RBC 2.78 L Hgb 8.7 L Hct 27.5 L MCV 99 MCH 31.3 MCHC 31.6 RDW Std Deviation 63.1 H Plt Count 200 Neut % (Auto) 73 Lymph % (Auto) 11 [place] % (Auto) 12 Eos % (Auto) 3 Baso % (Auto) 0 Neut # (Auto) 11.4 H Lymph # (Auto) 1.7 [place] # (Auto) 1.8 H Eos # (Auto) 0.4 Baso # (Auto) 0.0 Immature Gran # (Auto) 0.34 H Absolute Nucleated RBC 1.14 H Immature Gran % 2 H Nucleated RBC % 7 H Smear Path Review PT 11.3 INR 1.0 APTT 28.7 D Puncture Site ABG pH ABG pCO2 ABG pO2 ABG HCO3 ABG O2 Saturation ABG Base Excess FiO2 Sodium 147 H Potassium 3.8 Chloride 111 H Carbon Dioxide 26.9 Anion Gap 9 BUN 27 H Creatinine 0.9 Estim Creat Clear Calc 75.1 eGFR > 60 BUN/Creatinine Ratio 30 H Glucose 163 H Calculated Osmolality 301 H Calcium 7.6 L Corrected Calcium 8.2 L Phosphorus 2.5 Magnesium 2.0 Total Bilirubin 0.6 AST 239 H ALT 174 H Alkaline Phosphatase 117 H D Total Protein 5.7 Albumin 3.2 L Globulin 2.5 Albumin/Globulin Ratio 1.3 Vancomycin Trough ABG Interpretation ABG results: 11/03/24 11/03/24 11/03/24 11:20 14:11 17:06 ABG pH 7.35 7.34 L 7.20 L D ABG pCO2 21 L 20 L 45 D ABG pO2 193 H 82 L D 78 L ABG HCO3 12 L 11 L 16 L ABG O2 Saturation 100 H 96 91 ABG Base Excess -12 L -14 L -12 L VBG pH VBG pCO2 VBG pO2 VBG Base Excess 11/04/24 11/04/24 11/04/24 00:00 04:29 05:15 ABG pH 7.50 H D ABG pCO2 30 L D ABG pO2 109 H D ABG HCO3 23 ABG O2 Saturation 100 H ABG Base Excess 1 VBG pH 7.43 7.52 VBG pCO2 35 L 27 L VBG pO2 43 57 VBG Base Excess -1 0 11/05/24 11/06/24 04:49 03:40 ABG pH 7.48 H 7.41 ABG pCO2 35 43 ABG pO2 74 L D 108 D ABG HCO3 26 27 H ABG O2 Saturation 96 99 H ABG Base Excess 3 2 VBG pH VBG pCO2 VBG pO2 VBG Base Excess Quality Measures Quality Measures sepsis Current suspected stage: ruled out (Resolved) Possible source: pulmonary Blood cultures ordered: completed in ED Antibiotic ordered: Yes Assessment & Plan Assessment Current Active Medications: Generic Name Dose Route Start Last Admin Trade Name Freq PRN Reason Stop Dose Admin Acetaminophen 325 mg 11/05/24 09:48 Acetaminophen 325 Mg Tablet PO 12/03/24 15:31 Q6H PRN Fever >101.5 Aspirin 81 mg 11/04/24 09:00 11/06/24 08:41 Aspirin 81 Mg Chew GT 12/04/24 08:59 81 mg QDAY BETO Administration Atorvastatin Calcium 40 mg 11/03/24 21:00 11/05/24 21:13 Atorvastatin Calcium 20 Mg Tablet PO 12/03/24 20:59 40 mg HS BETO Administration Folic Acid 1 mg 11/04/24 09:15 11/06/24 08:41 Folic Acid Inj 1 Mg/0.2 Ml IVP 12/04/24 09:14 1 mg QDAY BETO Administration Heparin Sodium (Porcine) 5,000 unit 11/05/24 14:00 11/06/24 05:31 Heparin Sod Inj 5000 Unit/Ml Vial SC 11/19/24 13:59 5,000 unit Q8HR BETO Administration Norepinephrine/Dextrose 8 mg in 250 mls @ 5.63 mls/hr 11/03/24 14:57 11/05/24 05:00 Levophed In D5w 8mg/250ml IV 12/03/24 14:56 0 mcg/kg/min .Q24H PRN 0 mls/hr PER PROTOCOL Titration Protocol 0.05 MCG/KG/MIN Piperacillin/Tazobactam/Dextrose 3.375 gm in 50 mls @ 12.5 mls/hr 11/03/24 22:00 11/06/24 05:31 Zosyn IV 11/10/24 21:59 12.5 mls/hr Q8HR BETO Administration Propofol 1,000 mg in 100 mls @ 1.802 mls/hr 11/06/24 08:06 Diprivan Ivpb IV 12/06/24 08:05 .Q24H PRN PER PROTOCOL Protocol 5 MCG/KG/MIN Fentanyl Citrate 2,500 mcg in 250 mls @ 2.5 mls/hr 11/06/24 08:06 Sublimaze Inj 2,500 Mcg/250 Ml Bag IV 11/11/24 08:05 .Q24H PRN PER PROTOCOL Protocol 25 MCG/HR Calcium Gluconate/Sodium Chloride 1,000 mg in 50 mls @ 50 mls/hr 11/06/24 10:25 11/06/24 10:33 Calcium Gluc/Ns 1000mg Ivpb IV 11/06/24 11:24 50 mls/hr X1 ONE Administration Midazolam HCl 2 mg 11/03/24 17:56 11/05/24 14:15 Midazolam Inj 1 Mg/Ml Vial 2 Ml IVP 11/08/24 17:59 2 mg Q2HR PRN Administration Anxiety or Agitation Ondansetron HCl 4 mg 11/03/24 15:32 Ondansetron Inj 2 Mg/Ml Inj 2 Ml IVP 12/03/24 15:31 Q6H PRN NAUSEA OR VOMITING Protocol Pantoprazole Sodium 40 mg 11/05/24 21:00 11/06/24 08:41 Pantoprazole Inj 40 Mg Vial IVP 12/05/24 20:59 40 mg BID BETO Administration Sennosides 1 tab 11/04/24 09:00 11/06/24 08:40 Senna Tablet PO 12/04/24 08:59 1 tab QDAY BETO Administration Protocol Sodium Chloride 3 ml 11/03/24 10:58 Sodium Chloride Rt Anastacia 0.9% 3 Ml Nebu INH 12/03/24 10:57 PRN PRN SOLN Thiamine HCl 200 mg 11/04/24 09:15 11/06/24 08:41 Thiamine Inj 100 Mg/Ml Vial 2 Ml IVP 11/09/24 09:14 200 mg BID BETO Administration Plan Summary: Mr. Trejo is a 49-year-old male with past medical history of hypertension and personal history of esophageal cancer status post-treatment in remission who presented to [facility] emergency department on 11/03/2024 with a chief complaint of weakness and shortness of breath. Neuro #Alcohol dependence with severe withdrawal - Patient is intubated, sedated, GCS 6T. - Patient is cachectic with temporal wasting, and BMI of 18.3 kg/m?, likely sensitive to sedation from recent benzodiazepine treatment Plan: - Patient is off sedation - DC phenobarb, chlordiazepoxide - Versed 2 mg as needed - Consider Precedex drip if needed Cardiac #Distributive shock likely septic secondary to pneumonia, resolved Differential diagnosis: - Distributive shock: Likely septic in setting of severe pneumonia, patient had significantly elevated lactate on presentation, Pro-Jonny elevated. Plan: - Continue IV Zosyn (11/03- and vancomycin (11/03-11/05), vancomycin discontinued, MRSA nasal screen negative - Patient weaned off of pressors, currently requiring no pressor support #HFrEF, EF 35 to 40% # Suspicion of Takotsubo cardiomyopathy - Echo 11/03/2024 showed ejection fraction 35 to 40%, decreased apical motion - Urine output is 75 mL/h Plan: - Lasix 20 mg x 1 - Monitor urine output, goal is -1.2 L in 12 hours - Lisinopril 2.5 mg, carvedilol 3.125 mg #NSTEMI type II - Troponin down trended - Cardiology consulted Pulmonary #Acute hypoxic respiratory failure secondary to pneumonia, respiratory failure in setting of shock Differential diagnosis: Pneumonia, increased metabolic demand in setting of shock, increased work of breathing Diagnostic workup: -Initial ABG shows pH 7.35, pCO2 21, pO2 193, bicarb 12, patient on high flow nasal cannula in ED, significantly tachypneic, increased work of breathing, respiratory rate in 40s, accessory muscle use noted. - ABG 11/06/2024 showed pH 7.4, [id number], [id number], HCO3 27. -Patient off of pressors, shock resolved -Patient denies any sick contacts, although CTA shows significant right-sided pneumonia and left base pneumonia -Does have history of esophageal cancer in remission, suspicion of aspiration secondary to dysphagia -Bedside flu, COVID negative, cocci IgM negative -MRSA nasal screen negative -Blood cultures negative Plan: - Lung protective tidal volumes of 4 to 6 cc/kg - Continue Zosyn - Legionella still pending Gastrointestinal #Alcohol-related liver disease #Transaminitis Diagnostic workup: - CTA abdomen showed evidence of cirrhosis - AST 239 ALT 174, roughly 2:1 ratio may reflect alcoholic component - Per the patient's family member the patient consumes 2 bottles of hard alcohol on a daily basis in addition to beer -Hepatitis panel negative Plan: - Continue IV thiamine and folic acid - Treat alcohol withdrawal - Versed as needed #Personal history of esophageal cancer, in remission #Dark stool Differential diagnosis: Patient is status post esophagectomy, currently low clinical suspicion of GI bleed Diagnostic workup: - Patient reported self history of esophageal cancer reports completed treatment heart disease in remission - NG tube placed by gastroenterology - History of esophagectomy, there is suspicion of underlying dysphagia - Patient had large dark bowel movement 11/04, hemoglobin down trended as well, no active bleeding as of now Treatment: - GI consulted to place NG tube - Consider GI workup if patient has dark/bloody stools - Continue Protonix twice daily - Patient will benefit from speech therapy referral once extubated - Type and screen done -No evidence of acute GI bleed Follow-up: - Monitor bowel movement - Continue tube feeds, will advance to goal #Large right inguinal hernia #Dilated bowel loops Differential diagnosis: Incarcerated hernia, ileus Diagnostic workup: - CTA abdomen pelvis shows dilated bowel loops, there is a large right inguinal hernia noted on imaging as well - On physical exam hernia is reducible, low suspicion of incarceration Treatment: - General Surgery consulted, appreciate recommendations Follow-up: - Follow-up with general surgery and gastroenterology Renal/Genitourinary #Acute kidney injury, improving Differential diagnosis: Prerenal, renal in setting of shock, low suspicion of cardiorenal Diagnostic workup: -BUN 27 from 49, creatinine 0.9 from 1.3 - Consider prerenal azotemia in the setting of shock Plan: - See cardiac - Monitor urine output with a goal of 1.2 L - Lasix 20 mg one-time #Hypernatremia Differential diagnosis: Hypovolemia -Was given IV fluid in the emergency department in addition to Lasix Diagnostic workup: - Sodium is 147 up from 144 - May reflect diuretic effect on kidneys, lasix will drive water out primarily compared to Na Plan: - Continue to monitor urine output - Will increase free water flush as needed #Lactic acidosis, resolved #High anion gap metabolic acidosis, resolved #Hypocalcemia Diagnostic workup: - Calcium 7.6 Plan: - Calcium gluconate 1000 mg - Trend calcium Endocrine No active problems Hematology #Leukocytosis, improving Diagnostic workup: - WBC 15.7 from 16.6 - Likely acute phase reaction Treatment: -Follow CBC in a.m. #Normocytic normochromic anemia Differential diagnosis: Nutritional deficiency, in the setting of sepsis, GI bleed, low suspicion of hemolysis Diagnostic workup: - Hemoglobin 8.1 on presentation - Hemoglobin 8.7 hematocrit 27.5 11/06/2024 Treatment: -Follow CBC in a.m. - Continue folic acid and vitamin B12 #Thrombocytosis, (resolved) Diagnostic workup: - Platelet count significantly elevated on presentation - Platelets 200 11/06/2024 Treatment: - Received IV fluids Follow-up: - Follow CBC in a.m. Infectious Disease #Pneumonia Diagnostic workup: - Chest x-ray significant for bibasilar infiltrates Plan: - Continue Zosyn Integumentary No active problems DVT prophylaxis: SC heparin every 8 hours GI prophylaxis: IV Protonix Diet: NG tube feeds, vital AF Tubes: Endotracheal tube Lines: Peripheral IV, right IJ triple-lumen Code status: Full code Dispo: Sedation is off. Will continue to monitor for alcohol withdrawal. Patient was seen and discussed with my attending Dr. Kyleigh Mcclendon M.D., and my senior resident Dr. Dom Darby M.D. PGY-2. Vern Fairchild D.O. PGY?1.
--- NOTE | 2024-11-06 12:22 | ESPR_ITS ---
Documentation for date of: 11/06/24 Subjective Subjective Interval history: This is a 49-year-old male admitted to the ICU on 03 November. He was admitted with acute respiratory failure and significant metabolic acidosis along with shock. It was originally unclear if this was cardiogenic versus septic shock. The patient bedside echo did show a Takotsubo type cardiomyopathy. It was later discovered the patient also had a history of alcohol abuse. He was also started on thiamine and scheduled Librium as well as phenobarb. His shock is resolved and he is off of pressors. He remains intubated and on minimal sedation. His fentanyl was held this morning. He has a GCS of about 6T. Overnight he has been afebrile with a good urinary output. He is net +3 L from his hospital stay thus far. He had a echocardiogram done on 03 November which showed a decreased EF of 35 to 40% with apical akinesia moderate pulmonary hypertension with a right ventricular systolic pressure 65 and ABBI was noted on echo. Critical Care Note Critical care time (min.): 40 Exam Vital Signs Temp Pulse Resp BP Pulse Ox O2 Del Method O2 Flow Rate 98.3 F 105 H 30 H 94/59 L 99 Mechanical Ventilation 65 11/06/24 08:00 11/06/24 11:30 11/03/24 17:45 11/06/24 11:30 11/06/24 11:30 11/06/24 08:00 11/04/24 00:00 FiO2 21 11/06/24 10:27 Narrative Exam General-intubated, sedated, GCS 6 T, thin and cachectic body habitus HEENT-normocephalic, atraumatic, sclera icteric, pupils equal reactive, oropharynx is dry, ET tube and OG tube in place, temporal muscle wasting noted Chest-lungs clear to auscultation bilaterally, heart regular rhythmic, no bridge murmurs auscultated times exam, no apparent tenderness on palpation of the chest wall, no skin lesions, no increased work of breathing Abdomen-soft, nontender, bowel sounds present, no rebound or guarding Extremities-pulses palpable, no clubbing or cyanosis, no mottling, withdraws bilateral lower extremities, some edema bilateral upper extremities Vent AC VC Drips Fentanyl Physical Exam Completion Physical Exam Complete?: Yes Objective - Mechanical Maintenance Foreman Labs 11/06/24 05:25 11/06/24 05:25 Labs: Laboratory Results - last 24 hr 11/05/24 11/06/24 11/06/24 20:40 03:40 05:25 WBC 15.7 H RBC 2.78 L Hgb 8.7 L Hct 27.5 L MCV 99 MCH 31.3 MCHC 31.6 RDW Std Deviation 63.1 H Plt Count 200 Neut % (Auto) 73 Lymph % (Auto) 11 [place] % (Auto) 12 Eos % (Auto) 3 Baso % (Auto) 0 Neut # (Auto) 11.4 H Lymph # (Auto) 1.7 [place] # (Auto) 1.8 H Eos # (Auto) 0.4 Baso # (Auto) 0.0 Immature Gran # (Auto) 0.34 H Absolute Nucleated RBC 1.14 H Immature Gran % 2 H Nucleated RBC % 7 H PT 11.3 INR 1.0 APTT 28.7 D Puncture Site Right Femoral ABG pH 7.41 ABG pCO2 43 ABG pO2 108 D ABG HCO3 27 H ABG O2 Saturation 99 H ABG Base Excess 2 FiO2 30 Sodium 147 H Potassium 3.8 Chloride 111 H Carbon Dioxide 26.9 Anion Gap 9 BUN 27 H Creatinine 0.9 Estim Creat Clear Calc 75.1 eGFR > 60 BUN/Creatinine Ratio 30 H Glucose 163 H Calculated Osmolality 301 H Calcium 7.6 L Corrected Calcium 8.2 L Phosphorus 2.5 Magnesium 2.0 Total Bilirubin 0.6 AST 239 H ALT 174 H Alkaline Phosphatase 117 H D Total Protein 5.7 Albumin 3.2 L Globulin 2.5 Albumin/Globulin Ratio 1.3 Vancomycin Trough 3.1 L Assessment & Plan Additional Assessment Additional Assessment: In brief this is a 49yo M admitted for shock and resp failure to the ICU a/p CAMP[facility] AIDE ETOH withdrawal- on thiamine and folate - decrease librium and phenobarb given oversedation CV HFrEF- started on lasix, BB, ACEI - good UOP - noted to have cardiomyopathy with ABBI physiology - will need further eval with cards once improved Shock- resolved Resp Acute resp failure- currently over sedated - ween as able - on minimal FiO2 - fu on ABG and CXR Renal HyperNa- provide free water Lactic acidosis- improved HypoCa- replete IV GI ETOH hepatitis- fu on repeat labs - slow trend to improvement Hypoalbuminemia- 2/2 cirrhosis GI proph- PPI ? GIB- black stools noted and placed on BID PPI - GI consulted on arrival due to difficulty passing NGT and h/o esophageal ca Endo stable Heme Leukocytosis- trending down Anemia- no active bleed noted however there is a suspicion for slow GI ooze - no indication for transfusion at this time Thrombocytosis- likely reactive in nature DVT proph- heparin ID PNA- on zosyn case d/w ICU team labs, imaging, records reviewed ~ 40ccmin required for eval, exam, review, intervention, discussion and formulation of POC for this critically ill pt with resp failure on MV at high risk for further and ongoing decompensation Provider Notation Provider Notation: Although this document has been carefully reviewed, there may still be some phonetic and other typographical errors. These errors are purely grammatical due to imperfections in the software program and should not be construed in any way to compromise the substance of the patient's medical care during this visit. Thank you for the opportunity and privilege in assisting you with this patient's care and management.
--- NOTE | 2024-11-06 14:46 | PC.SS ---
SS update: patient remains intubated and on minimal sedation. D/c plan is to return home.
--- NOTE | 2024-11-06 17:56 | PD.IMPROG ---
Documentation for date of: 11/06/24 Subjective Subjective Interval history: Spoke with the internal medicine team Patient has melanotic stool hemoglobin hematocrit reasonably stable Mechanically ventilated Will also need a cardiac catheterization Hold of endoscopy on the centricity he is actively bleeding and dropping his hemoglobin hematocrit Also in alcohol withdrawal Prior to the hospitalization was drinking at least 2 bottles of alcohol a day Exam Vital Signs Temp Pulse Resp BP Pulse Ox O2 Del Method O2 Flow Rate 99.2 F 112 H 30 H 92/59 L 99 Mechanical Ventilation 65 11/06/24 16:00 11/06/24 16:00 11/03/24 17:45 11/06/24 16:00 11/06/24 16:00 11/06/24 16:00 11/04/24 00:00 FiO2 21 11/06/24 16:00 Objective Labs 11/06/24 05:25 11/06/24 05:25 Labs: Laboratory Results - last 24 hr 11/05/24 11/06/24 11/06/24 20:40 03:40 05:25 WBC 15.7 H RBC 2.78 L Hgb 8.7 L Hct 27.5 L MCV 99 MCH 31.3 MCHC 31.6 RDW Std Deviation 63.1 H Plt Count 200 Neut % (Auto) 73 Lymph % (Auto) 11 [place] % (Auto) 12 Eos % (Auto) 3 Baso % (Auto) 0 Neut # (Auto) 11.4 H Lymph # (Auto) 1.7 [place] # (Auto) 1.8 H Eos # (Auto) 0.4 Baso # (Auto) 0.0 Immature Gran # (Auto) 0.34 H Absolute Nucleated RBC 1.14 H Immature Gran % 2 H Nucleated RBC % 7 H PT 11.3 INR 1.0 APTT 28.7 D Puncture Site Right Femoral ABG pH 7.41 ABG pCO2 43 ABG pO2 108 D ABG HCO3 27 H ABG O2 Saturation 99 H ABG Base Excess 2 FiO2 30 Sodium 147 H Potassium 3.8 Chloride 111 H Carbon Dioxide 26.9 Anion Gap 9 BUN 27 H Creatinine 0.9 Estim Creat Clear Calc 75.1 eGFR > 60 BUN/Creatinine Ratio 30 H Glucose 163 H Calculated Osmolality 301 H Calcium 7.6 L Corrected Calcium 8.2 L Phosphorus 2.5 Magnesium 2.0 Total Bilirubin 0.6 AST 239 H ALT 174 H Alkaline Phosphatase 117 H D Total Protein 5.7 Albumin 3.2 L Globulin 2.5 Albumin/Globulin Ratio 1.3 Vancomycin Trough 3.1 L Impressions Impression: Occult GI bleeding most likely upper GI source of bleeding in the setting of excessive alcohol abuse Enteral hyperalimentation via the NGT Acute hypoxic respiratory failure endotracheal intubation mechanical ventilation Continue current management ABG Interpretation ABG results: 11/03/24 11/03/24 11/03/24 11:20 14:11 17:06 ABG pH 7.35 7.34 L 7.20 L D ABG pCO2 21 L 20 L 45 D ABG pO2 193 H 82 L D 78 L ABG HCO3 12 L 11 L 16 L ABG O2 Saturation 100 H 96 91 ABG Base Excess -12 L -14 L -12 L VBG pH VBG pCO2 VBG pO2 VBG Base Excess 11/04/24 11/04/24 11/04/24 00:00 04:29 05:15 ABG pH 7.50 H D ABG pCO2 30 L D ABG pO2 109 H D ABG HCO3 23 ABG O2 Saturation 100 H ABG Base Excess 1 VBG pH 7.43 7.52 VBG pCO2 35 L 27 L VBG pO2 43 57 VBG Base Excess -1 0 11/05/24 11/06/24 04:49 03:40 ABG pH 7.48 H 7.41 ABG pCO2 35 43 ABG pO2 74 L D 108 D ABG HCO3 26 27 H ABG O2 Saturation 96 99 H ABG Base Excess 3 2 VBG pH VBG pCO2 VBG pO2 VBG Base Excess Assessment & Plan A&P Narrative 49 years old male with acute respiratory failure bilateral pneumonia acute coronary syndrome mechanically ventilated with previous history of Esophageal carcinoma status posttreatment and supposedly in remission Difficulty placing the NGT only OGT in Plan Will attempt to place a 14 [place] NGT either via nasogastric approach or oral approach Will follow the patient # Transaminitis most likely due to hypoxic hepatitis Thank you very much for the opportunity to participate in the care of this patient Time Spent With Patient Time: Total time spent is greater than 50% in coordination of care (as documented) at patient's floor/unit and/or counseling patient:
[2024-11-06] MEDS: Norepinephrine/D5W 8mg/250ml 8 MG/250 ML BAG 5.63 MG IV (18:39)
--- NOTE | 2024-11-06 18:57 | PD.RESPRO ---
Documentation for date of: 11/06/24 Subjective Subjective Interval history: The patient was seen and examined at the bedside this morning. Continues to be sedated, intubated and mechanically ventilated. Continues to be in pressor support. Avoid inotropic's pressor support. Significant improvement in lactic acid level to 2.5 from 16 yesterday. White count still elevated at 15.7, with hemoglobin 8.4. Improvement in pH and bicarb. Creatinine improved to 0.8. Liver enzymes trending down. Repeat chest x-ray revealed significant improvement in bilateral pneumonia. TTE done on 11/04/2024 revealed Normal LV size and mildly decreased LV systolic function with an EF of around 40 to 45%. EF improved from yesterday. Hypokinesis of the mid to apical anterior and anterolateral and apical segments appear improved. Apical akinesis still noted. Sigmoid septum noted with LVOT obstruction leading to moderate to severe eccentric MR directed anteriorly. Gradient measurement not accurate due to contamination with MR jet. Normal RV size and function. No pericardial effusion -Diuretics and IV fluids as needed depending on the patient's fluid status. -Currently patient is in shock, GDMT was started on the patient as blood pressure and other vitals were stable off levophed, but again MAP < 65 and was restarted on levophed. Ok to hold GDMT form now. -Patient is tachycardic on Levophed. Given that patient with LVOT obstruction secondary to sigmoid septum as well as moderate to severe MR from ABBI and would recommend phenylephrine. Exam Vital Signs Temp Pulse Resp BP Pulse Ox O2 Del Method O2 Flow Rate 99.2 F 117 H 30 H 94/53 L 97 Mechanical Ventilation 65 11/06/24 16:00 11/06/24 18:39 11/03/24 17:45 11/06/24 18:39 11/06/24 18:00 11/06/24 16:00 11/04/24 00:00 FiO2 21 11/06/24 16:00 Narrative Exam General: No acute distress, sedated, intubated and mechanically ventilated HEENT: Moist mucous membranes, oropharynx clear Neck: Supple, No masses, No JVD CVS: S1S2 Regular rate and rhythm, No murmurs, rubs or gallops Lungs: Mild wheezing throughout the lung field, rhonchi appreciated throughout the lung field, mild bibasilar crackles appreciated Abd: Soft, NT/ND, +BS, hepatomegaly appreciated Ext: No edema, warm and well perfused Skin: No rash Psych: Unable to obtain Objective Labs 11/07/24 04:36 11/07/24 04:36 Labs: Laboratory Results - last 24 hr 11/05/24 11/06/24 11/06/24 20:40 03:40 05:25 WBC 15.7 H RBC 2.78 L Hgb 8.7 L Hct 27.5 L MCV 99 MCH 31.3 MCHC 31.6 RDW Std Deviation 63.1 H Plt Count 200 Neut % (Auto) 73 Lymph % (Auto) 11 [place] % (Auto) 12 Eos % (Auto) 3 Baso % (Auto) 0 Neut # (Auto) 11.4 H Lymph # (Auto) 1.7 [place] # (Auto) 1.8 H Eos # (Auto) 0.4 Baso # (Auto) 0.0 Immature Gran # (Auto) 0.34 H Absolute Nucleated RBC 1.14 H Immature Gran % 2 H Nucleated RBC % 7 H PT 11.3 INR 1.0 APTT 28.7 D Puncture Site Right Femoral ABG pH 7.41 ABG pCO2 43 ABG pO2 108 D ABG HCO3 27 H ABG O2 Saturation 99 H ABG Base Excess 2 FiO2 30 Sodium 147 H Potassium 3.8 Chloride 111 H Carbon Dioxide 26.9 Anion Gap 9 BUN 27 H Creatinine 0.9 Estim Creat Clear Calc 75.1 eGFR > 60 BUN/Creatinine Ratio 30 H Glucose 163 H Calculated Osmolality 301 H Calcium 7.6 L Corrected Calcium 8.2 L Phosphorus 2.5 Magnesium 2.0 Total Bilirubin 0.6 AST 239 H ALT 174 H Alkaline Phosphatase 117 H D Total Protein 5.7 Albumin 3.2 L Globulin 2.5 Albumin/Globulin Ratio 1.3 Vancomycin Trough 3.1 L ABG Interpretation ABG results: 11/03/24 11/03/24 11/03/24 11:20 14:11 17:06 ABG pH 7.35 7.34 L 7.20 L D ABG pCO2 21 L 20 L 45 D ABG pO2 193 H 82 L D 78 L ABG HCO3 12 L 11 L 16 L ABG O2 Saturation 100 H 96 91 ABG Base Excess -12 L -14 L -12 L VBG pH VBG pCO2 VBG pO2 VBG Base Excess 11/04/24 11/04/2411/04/25 00:00 04:29 05:15 ABG pH 7.50 H D ABG pCO2 30 L D ABG pO2 109 H D ABG HCO3 23 ABG O2 Saturation 100 H ABG Base Excess 1 VBG pH 7.43 7.52 VBG pCO2 35 L 27 L VBG pO2 43 57 VBG Base Excess -1 0 11/05/24 11/06/24 04:49 03:40 ABG pH 7.48 H 7.41 ABG pCO2 35 43 ABG pO2 74 L D 108 D ABG HCO3 26 27 H ABG O2 Saturation 96 99 H ABG Base Excess 3 2 VBG pH VBG pCO2 VBG pO2 VBG Base Excess Quality Measures Quality Measures sepsis Current suspected stage: septic shock (LA >4 and/or hypotension) Sepsis reassessment completed at (date): 11/06/24 Sepsis reassessment completed at (time): 19:10 Possible source: pulmonary Blood cultures ordered: completed in ED Antibiotic ordered: Yes Assessment & Plan Assessment Current Active Medications: Generic Name Dose Route Start Last Admin Trade Name Freq PRN Reason Stop Dose Admin Acetaminophen 325 mg 11/05/24 09:48 Acetaminophen 325 Mg Tablet PO 12/03/24 15:31 Q6H PRN Fever >101.5 Aspirin 81 mg 11/04/24 09:00 11/06/24 08:41 Aspirin 81 Mg Chew GT 12/04/24 08:59 81 mg QDAY BETO Administration Atorvastatin Calcium 40 mg 11/03/24 21:00 11/05/24 21:13 Atorvastatin Calcium 20 Mg Tablet PO 12/03/24 20:59 40 mg HS BETO Administration Folic Acid 1 mg 11/04/24 09:15 11/06/24 08:41 Folic Acid Inj 1 Mg/0.2 Ml IVP 12/04/24 09:14 1 mg QDAY BETO Administration Heparin Sodium (Porcine) 5,000 unit 11/05/24 14:00 11/06/24 15:15 Heparin Sod Inj 5000 Unit/Ml Vial SC 11/19/24 13:59 5,000 unit Q8HR BETO Administration Norepinephrine/Dextrose 8 mg in 250 mls @ 5.63 mls/hr 11/03/24 14:57 11/06/24 18:39 Levophed In D5w 8mg/250ml IV 12/03/24 14:56 0.05 mcg/kg/min .Q24H PRN 5.63 mls/hr PER PROTOCOL Administration Protocol 0.05 MCG/KG/MIN Piperacillin/Tazobactam/Dextrose 3.375 gm in 50 mls @ 12.5 mls/hr 11/03/24 22:00 11/06/24 15:15 Zosyn IV 11/10/24 21:59 12.5 mls/hr Q8HR BETO Administration Propofol 1,000 mg in 100 mls @ 1.802 mls/hr 11/06/24 08:06 Diprivan Ivpb IV 12/06/24 08:05 .Q24H PRN PER PROTOCOL Protocol 5 MCG/KG/MIN Fentanyl Citrate 2,500 mcg in 250 mls @ 2.5 mls/hr 11/06/24 08:06 Sublimaze Inj 2,500 Mcg/250 Ml Bag IV 11/11/24 08:05 .Q24H PRN PER PROTOCOL Protocol 25 MCG/HR Midazolam HCl 2 mg 11/03/24 17:56 11/05/24 14:15 Midazolam Inj 1 Mg/Ml Vial 2 Ml IVP 11/08/24 17:59 2 mg Q2HR PRN Administration Anxiety or Agitation Ondansetron HCl 4 mg 11/03/24 15:32 Ondansetron Inj 2 Mg/Ml Inj 2 Ml IVP 12/03/24 15:31 Q6H PRN NAUSEA OR VOMITING Protocol Pantoprazole Sodium 40 mg 11/05/24 21:00 11/06/24 08:41 Pantoprazole Inj 40 Mg Vial IVP 12/05/24 20:59 40 mg BID BETO Administration Sennosides 1 tab 11/04/24 09:00 11/06/24 08:40 Senna Tablet PO 12/04/24 08:59 1 tab QDAY BETO Administration Protocol Sodium Chloride 3 ml 11/03/24 10:58 Sodium Chloride Rt Anastacia 0.9% 3 Ml Nebu INH 12/03/24 10:57 PRN PRN SOLN Thiamine HCl 200 mg 11/04/24 09:15 11/06/24 08:41 Thiamine Inj 100 Mg/Ml Vial 2 Ml IVP 11/09/24 09:14 200 mg BID BETO Administration Plan The patient is a 49-year-old male with significant past medical history of esophageal cancer currently on remission, and hypertension presented to ED with chief complaint of acute SOB and generalized weakness is currently being treated for septic shock, Takotsubo syndrome complicated by sigmoid interventricular septum further leading to tachycardia and NSTEMI type II. #Acute hypoxic respiratory failure 2/2 #Septic shock 2/2 #Aspiration pneumonia #Severe lactic acidosis, improving The patient presented with blood pressure of 81/51, pulse 127, RR 40, and white count 33.8 meeting 3/4 SIRS criteria, chest x-ray significant for right sided middle and lower lobe pneumonia, CT chest abdomen and pelvis revealing right middle and lower lobe pneumonia, and left lower lobe pneumonia, and lactic acid level of 16, with endorgan failure as acute hypoxic respiratory failure requiring intubation. Patient received 2.5 L of bolus IV fluid - Continue with aggressive IV antibiotics - Blood and urine culture sent, negative so far. - IgM for coccidiomycosis, negative - Pressor support, and recommended to avoid inotropes in the setting of sigmoid interventricular septum complicating Takotsubo syndrome. #Abnormal EKG, likely 2/2 #Takotsubo syndrome vs LAD, complicated by #Sigmoid interventricular septum, possibly leading to #Moderate to severe eccentric MR, leading to #Moderate to severe PAH #HFrEF with apical akinesis EKG was significant for sinus tachycardia with deep symmetric T wave inversion in lateral leads V4 to V6, and inverted T waves in lead I and aVL. TTE on 11/03/2024 revealed: Normal LV size and moderate LV systolic dysfunction with an EF of 35 to 40%. Apical akinesis with hypokinesis of the mid to apical anterior, anterolateral and apical septal segments indicating possible Takotsubo syndrome versus LAD involvement. RV Normal in size and function. 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 Severe LA dilatation. Trace AI Moderate TR with mild RA dilatation. No Pericardial Effusion. IVC not well-visualized. Repeat limited TTE on 11/04/2024 revealed: Normal LV size and mildly decreased LV systolic function with an EF of around 40 to 45%. EF improved from yesterday. Hypokinesis of the mid to apical anterior and anterolateral and apical segments appear improved. Apical akinesis still noted. Sigmoid septum noted with LVOT obstruction leading to moderate to severe eccentric MR directed anteriorly. Gradient measurement not accurate due to contamination with MR jet. Normal RV size and function. No pericardial effusion -As the patient has sigmoid interventricular septum, and recent stressor likely leading to Takotsubo syndrome, leading to tachycardia of upper left ventricular, which is further pulling in mitral valve leading to MR resulting with moderate to severe PAH. -Volume status is critical, to maintain euvolemia, as hypovolemia will cause decrease venous return, resulting as compensatory tachycardia of upper left ventricle leading to further MR, with increased pulmonary arterial pressure and shunt reversal. On the other hand, if there is hypervolemia leading to increased venous return, will complicate MR and increased pulmonary artery pressure. - Currently patient is in shock, GDMT was started on the patient as blood pressure and other vitals were stable off levophed, but again MAP < 65 and was restarted on levophed. Ok to hold GDMT form now. --Patient is tachycardic on Levophed. Given that patient with LVOT obstruction secondary to sigmoid septum as well as moderate to severe MR from ABBI and would recommend phenylephrine. - We will consider PABLITO after patient is more stable, to further evaluate mitral valve and MR. #NSTEMI type II, less likely type I Likely multifactorial secondary to septic shock, Takotsubo syndrome, sigmoid interventricular septum leading to MR. No significant risk factor for STEMI, except for hypertension, as patient denies smoking or illicit drug use, and lipid panel was significant for LDL 39 and HDL 53. EKG unremarkable for STEMI - Heparin drip stopped - May consider cardiac catheterization after the patient is stable - Aspirin 81 Mg daily - Atorvastatin 40 Mg daily at night Thank you for cardiology consultation. We really appreciate for the opportunity to participate in this patient care. Cardiology team will continue to follow-up on this patient. The patient's management plan was discussed with my attending physician MD Ventura Montes MD, PGY3 Attending Provider Attestation/Addendum I have personally seen and examined the patient separately on the above date of service and discussed the plan of care with the resident. I reviewed the resident Dr. Ventura Myers consultation progress note and agree with the resident findings and plan in the note above and have also edited the documentation to reflect my findings and plan. Colin Brandt M.D. Interventional Cardiology
[2024-11-06] MEDS: ATORVASTATIN CALCIUM 20 MG TABLET 40 MG PO (20:22)
[2024-11-06] MEDS: PHENYLEPHRINE HCL 40 MG in SODIUM CHLORIDE 0.9% 96 ML IV (21:45)
[2024-11-06 21:53] LABS: Base Excess, Venous 6 (-3-3); O2 Saturation, Venous 75 % (96-97); PCO2, Venous 39 mmHg (36-56); PO2, Venous 39 mmHg (15-58); pH, Venous 7.49 (7.33-7.66)
[2024-11-07] VITALS (141 sets, daily range): BP systolic 79–120; BP diastolic 47–79; PULSE 99–121; RESP 15–29; TEMP 36.6–37.5; O2SAT 88–100
--- NOTE | 2024-11-07 05:00 | XR_ITS ---
Examination: Chest AP single view Technique: AP portable semiupright chest single view Date and time: November 07, 2024, 0746 hrs. Comparison November 07, 2023 Indications: Hypoxic respiratory failure postintubation Findings: Tracheal tube tip 4 cm above go Mild to moderate enlargement left ventricle Moderate vascular congestion. Right internal jugular central line tip SVC satisfactory position Impression: Mild heart failure pattern. Endotracheal tube tip 4 cm above go
[2024-11-07] MEDS: PIPER/TAZO 3.375 GM PREMIX 3.375 GM/50 ML BAG IV (05:01)
[2024-11-07] MEDS: HEPARIN SOD INJ 5000 UNIT/ML VIAL SC (05:01)
[2024-11-07 05:58] LABS: Basophils # (Auto) 0.0 Thou/mm3 (0.0-0.2); Basophils % (Auto) 0 % (0-2.5); Eosinophils # (Auto) 0.5 Thou/mm3 (0.0-0.5); Eosinophils % (Auto) 3 % (0-10); Hematocrit 25.6 % (41.0-53.0); Immature Granulocytes Auto 0.61 Thou/mm3 (0.00-0.00); Lymphocytes # (Auto) 1.9 Thou/mm3 (1.0-4.8); Lymphocytes % (Auto) 11 % (10-50); Mean Corpuscular HGB Conc 32.4 g/dl (31.0-37.0); Mean Corpuscular Hemoglobin 32.0 pg (25.0-35.0); Mean Corpuscular Volume 99 fL (80-100); Monocytes # (Auto) 3.1 Thou/mm3 (0.0-0.8); Monocytes % (Auto) 17 % (0-12); Neutrophils # (Auto) 11.8 Thou/mm3 (1.8-7.7); Neutrophils % (Auto) 66 % (37-80); Nucleated Red Blood Cell # 0.95 Thou/mm3 (0.00-0.00); Nucleated Red Blood Cell % 5 /100 WBC (0); Platelet Count 227 Thou/mm3 (140-440); RDW Standard Deviation 64.9 fL (35.1-43.9); Red Blood Count 2.59 Miln/mm3 (4.50-5.90); White Blood Count 18.0 Thou/mm3 (3.8-10.6)
[2024-11-07 06:06] LABS: INR 1.0 (0.9-1.3); Partial Thromboplastin Time 30.1 Seconds (22.0-36.0); Prothrombin Time 11.3 Seconds (9.0-12.2)
[2024-11-07 06:10] LABS: Hemoglobin 8.3 g/dL (13.5-16.0)
[2024-11-07 06:14] LABS: Base Excess 6 (-3-3); HCO3 29 mEq/L (20-26); Inspired Oxygen, FIO2 21 %; O2 Saturation 96 % (91-98); PCO2 39 mmHg (32.0-48.0); PO2 71 mmHg (83-108); pH, Arterial 7.49 (7.35-7.45)
[2024-11-07 06:16] LABS: Alanine Aminotransferase 166 U/L (10-49); Albumin, Serum 3.1 gm/dL (3.5-5.0); Albumin/Globulin Ratio 1.3 (1.2-2.2); Alkaline Phosphatase 126 U/L (46-116); Anion Gap 8 (7-16); Aspartate Amino Transferase 206 U/L (0-34); BUN/Creatinine Ratio 28 Ratio (12-20); Bilirubin,Total 0.6 mg/dL (0.3-1.2); Blood Urea Nitrogen 22 mg/dL (9-23); Calcium 7.9 mg/dL (8.3-10.6); Calcium (Corrected) 8.6 mg/dL (8.5-10.1); Carbon Dioxide 30.8 mMol/L (20.0-31.0); Chloride 109 mMol/L (98-107); Creatinine (Component) 0.8 mg/dL (0.6-1.3); Estimated Creatinine Clearance 84.7 mL/min (>60); Globulin 2.4 gm/dL (2.3-3.5); Glucose 134 mg/dL (74-106); Magnesium 2.4 mg/dL (1.6-2.6); Osmolality,Calculated 299 (275-295); Phosphorous 2.4 mg/dL (2.4-5.1); Potassium 3.1 mMol/L (3.4-5.1); Sodium 148 mMol/L (136-145); Total Protein 5.5 gm/dL (5.7-8.2); eGFR > 60 See Note
[2024-11-07 06:25] LABS: Allen Test Performed/OK; Puncture Site Right Radial
[2024-11-07] MEDS: POTASSIUM CHLORIDE 10% 20 MEQ/15 ML UDC 40 MEQ NG (07:39)
[2024-11-07] MEDS: THIAMINE INJ 100 MG/ML VIAL 2 ML 200 MG IVP ×2 (08:03→21:32)
[2024-11-07] MEDS: ASPIRIN 81 MG CHEW GT (08:03)
[2024-11-07] MEDS: FOLIC ACID INJ 1 MG/0.2 ML IVP (08:03)
[2024-11-07] MEDS: METOPROLOL TARTRATE INJ 1 MG/ML AMP 5 ML 2.5 MG IVP (08:41)
--- NOTE | 2024-11-07 08:53 | XR_ITS ---
Examination: CT brain head without contrast. 2-D sagittal coronal reconstructions Date and time of exam:November 07, 2024, 0921 hrs. Indications: Hypoxic respiratory failure, postintubation, altered mental status today CTDI: vol (mGy):42.8 DLP: (mGycm):950 Technique: Multiple CT axial sections of the brain have been obtained, 5 mm slice thickness. Contrast has not been administered. 2-D sagittal, coronal reconstructions have been obtained Low dose protocols were performed. One or more of the following dose reduction techniques were used; automated exposure control, adjustment of the mA and/or KV according to patient size, use of iterative reconstruction technique. Findings: No significant ventricular enlargement. Intra-axial or extra-axial hemorrhage density is not seen. No mass effect or midline shift Basal cisterns are not remarkable. Fourth ventricle is midline. Cranial vault intact. Impression: Negative for acute hemorrhage, mass effect or midline shift
--- NOTE | 2024-11-07 09:12 | XR_ITS ---
Examination: Abdomen sonogram, Limited Date and time of exam: November 07, 2024, 10:57 AM Indications elevated liver function tests on laboratory examination Technique: Real-time pedraza scale transabdominal sonographic images of the upper abdomen obtained. Findings: Gallbladder wall measures No stones Common bile duct 0.3 cm Liver 15.5 cm Liver 13.3 cm irregular contour mild ascites Normal hepatopedal flow Patent IVC Impression: The gallbladder wall is thickened, however the patient has ascites, the appearance should be clinically correlated Osteoporosis, no focal liver lesions
--- NOTE | 2024-11-07 09:42 | ESPR_ITS ---
<Statement entered by Dom Darby MD - 11/07/24 15:47> Patient was seen and examined at bedside. I agree on the assessment and plan on this note as documented by resident Vern Fairchild PGY1. Patient seen and examined at bedside, yesterday evening patient was started on Levophed switched to phenylephrine per cardiology recommendations overnight, CvO2 75%. Patient continues to have several episodes of dark stools, hemoglobin downtrending, discussed with gastroenterology patient will be scheduled for EGD today, heparin and aspirin held started on octreotide drip. Antibiotic therapy de-escalated to ceftriaxone, potassium was repleted, will hold beta-jordan, BRANDY and Lasix, NICOM assessment at bedside patient is fluid responsive, patient was given total 750 cc LR bolus, post fluid resuscitation bedside IVC assessment shows IVC diameter 1.5. Patient was not started on lactulose to titrate to 4-5 bowel movements, patient is more responsive compared to this morning. Plan is to keep patient off sedation, undergo EGD today, following arterial pressure resume Levophed as needed and follow H&H later today. Case discussed with attending Dr. Jet Darby MD PGY-2 Documentation for date of: 11/07/24 Subjective Subjective Interval history: Interval history: Mr. Trejo is a 49-year-old male with past medical history of hypertension and personal history of esophageal cancer status post-treatment in remission who presented to [facility] emergency department on 11/03/2024 with a chief complaint of weakness and shortness of breath. Patient seen in the emergency department, significantly tachypneic with increased work of breathing, patient reported that he had generalized weakness and fatigue for the last 2 weeks which did not improve and he developed significant severe shortness of breath today. Reported the shortness of breath to be progressive accompanied with coughing, denies any similar complains in the past and denies any sick contacts. Patient denies any recent fevers, chills, headache, weight loss and any other medical problems. Patient also complained that he had been under recent stress, unable to find a job has been looking for a job. ED physician consulted data analysis intern for possible ICU admission, on examination in ED patient had increased work of breathing, tachypneic and respiratory rate 40s, requiring high flow nasal cannula, SpO2 100. Per review of labs it was noted that patient is lactic acidosis/metabolic acidosis with compensated respiratory alkalosis. Patient was given Lasix 20 mg IV x 1 considering underlying chest x- ray findings, bedside echo showed apical hypokinesis, case was discussed with yield improvement engineer on-call, echocardiogram was ordered in ED. Considering patient continued to have increased work of breathing, patient signed a POLST form for full treatment full code, discussed with patient's sister and patient regarding intubation and central line placement. Patient provided consent patient was intubated by data analysis intern team and postintubation right IJ triple-lumen central line placed. Patient admitted to the intensive care unit for acute hypoxic respiratory failure secondary to distributive shock, increased work of breathing. 11/04/24: Patient had black bowel movement overnight, 500 cc greenish fluid suctioned out of NG tube, was given aspirin earlier this morning, we will titrate down tidal volume lung protective volume goal 4 to 6 cc/kg, goal tidal volume for today is 320 will titrate down as patient tolerates, limited echo at bedside reviewed with sleep lab technologist, there is some concern of LVOT obstruction patient's pressor requirement has improved, plan to titrate down vaso and replace vaso with phenylephrine, will start patient on thiamine IV twice daily and folate IV daily. Pending limited echo results. 11/05/24: Continues to have black bowel movements, hemoglobin stable, change Protonix to twice daily, reached out to patient's sister today, per patient's sister he is a chronic alcoholic, reports that he at least drinks 2 large bottles of hard liquor along with beers on a daily basis, patient is requiring high doses sedation, agitated at times has significant alcohol withdrawal, started on phenobarbital every 6 hours, chlordiazepoxide 50 3 times daily and patient also has Versed 2 mg as needed for anxiety. Patient has been off pressors, stop stress dose steroids, continue thiamine and folate acid. 11/06/24: Versed as needed. Precedex as needed for agitation. Continue thiamine and folic acid. Hypocalcemic, calcium gluconate X 1. Lasix 20mg x 1, lisinopril 2.5mg x 1, carvedilol 3.125 mg x 1, consider one-time dose of carvedilol 3.125 mg in the evening if blood pressure tolerates. Plan to wean the patient off of sedation today. 11/07/2024: Patient is off sedation. Patient is still lethargic. CT scan head ordered-negative for bleed. Lactulose 20 mg 3 times daily titrate to 4-5 BM. Liver ultrasound shows ascites. 3X 250 mL fluid boluses of LR goven per NICOM assessment, potassium repleted. Holding DVT prophylaxis and aspirin due to possible GI bleed. Started on Octreotide GTT, GI to scope later today. Zosyn switched to ceftriaxone. Exam Vital Signs Temp Pulse Resp BP Pulse Ox O2 Del Method O2 Flow Rate 98.5 F 115 H 30 H 95/63 97 Mechanical Ventilation 65 11/07/24 04:00 11/07/24 08:41 11/03/24 17:45 11/07/24 08:41 11/07/24 07:00 11/06/24 16:00 11/04/24 00:00 FiO2 21 11/07/24 07:28 Narrative Exam General: Intubated, sedated, cachectic, temporal wasting. Neurologic: GCS 6T, withdraws to pain lower extremities bilaterally but not upper. HEENT: Normocephalic, atraumatic, mucous membranes dry. Pupils reactive to light. Heart: Tachycardic, systolic murmur at the mitral listening post left fifth intercostal space sternal border. Lungs: Pectus excavatum, clear to auscultation bilaterally with no wheezing or crackles. Abdomen: Right sided reducible inguinal hernia. Extremities: 1+ pitting edema in the distal upper extremities bilaterally. No edema in the lower extremities bilaterally. 2+ radial and dorsalis pedis pulses bilaterally. Bilateral knee effusions. Skin: Cool. Dry. No rash or ecchymoses. Objective Labs 11/07/24 12:00 11/07/24 04:36 Labs: Laboratory Results - last 24 hr 11/06/24 11/07/24 11/07/24 21:45 04:36 05:59 WBC 18.0 H RBC 2.59 L Hgb 8.3 L Hct 25.6 L MCV 99 MCH 32.0 MCHC 32.4 RDW Std Deviation 64.9 H Plt Count 227 Neut % (Auto) 66 Lymph % (Auto) 11 [place] % (Auto) 17 H Eos % (Auto) 3 Baso % (Auto) 0 Neut # (Auto) 11.8 H Lymph # (Auto) 1.9 [place] # (Auto) 3.1 H Eos # (Auto) 0.5 Baso # (Auto) 0.0 Immature Gran # (Auto) 0.61 H Absolute Nucleated RBC 0.95 H Immature Gran % 3 H Nucleated RBC % 5 H PT 11.3 INR 1.0 APTT 30.1 Puncture Site Right Radial ABG pH 7.49 H ABG pCO2 39 ABG pO2 71 L D ABG HCO3 29 H ABG O2 Saturation 96 ABG Base Excess 6 H VBG pH 7.49 VBG pCO2 39 D VBG pO2 39 VBG O2 Sat (Brayan) 75 L D VBG Base Excess 6 H FiO2 21 Sodium 148 H Potassium 3.1 L D Chloride 109 H Carbon Dioxide 30.8 Anion Gap 8 BUN 22 Creatinine 0.8 Estim Creat Clear Calc 84.7 eGFR > 60 BUN/Creatinine Ratio 28 H Glucose 134 H Calculated Osmolality 299 H Calcium 7.9 L Corrected Calcium 8.6 Phosphorus 2.4 Magnesium 2.4 Total Bilirubin 0.6 AST 206 H ALT 166 H Alkaline Phosphatase 126 H Total Protein 5.5 L Albumin 3.1 L Globulin 2.4 Albumin/Globulin Ratio 1.3 ABG Interpretation ABG results: 11/03/24 11/03/24 11/03/24 11:20 14:11 17:06 ABG pH 7.35 7.34 L 7.20 L D ABG pCO2 21 L 20 L 45 D ABG pO2 193 H 82 L D 78 L ABG HCO3 12 L 11 L 16 L ABG O2 Saturation 100 H 96 91 ABG Base Excess -12 L -14 L -12 L VBG pH VBG pCO2 VBG pO2 VBG Base Excess 11/04/24 11/04/24 11/04/24 00:00 04:29 05:15 ABG pH 7.50 H D ABG pCO2 30 L D ABG pO2 109 H D ABG HCO3 23 ABG O2 Saturation 100 H ABG Base Excess 1 VBG pH 7.43 7.52 VBG pCO2 35 L 27 L VBG pO2 43 57 VBG Base Excess -1 0 11/05/24 11/06/24 11/06/24 04:49 03:40 21:45 ABG pH 7.48 H 7.41 ABG pCO2 35 43 ABG pO2 74 L D 108 D ABG HCO3 26 27 H ABG O2 Saturation 96 99 H ABG Base Excess 3 2 VBG pH 7.49 VBG pCO2 39 D VBG pO2 39 VBG Base Excess 6 H 11/07/24 05:59 ABG pH 7.49 H ABG pCO2 39 ABG pO2 71 L D ABG HCO3 29 H ABG O2 Saturation 96 ABG Base Excess 6 H VBG pH VBG pCO2 VBG pO2 VBG Base Excess Quality Measures Quality Measures sepsis Current suspected stage: ruled out (Off pressors.) Possible source: pulmonary Blood cultures ordered: completed in ED Antibiotic ordered: Yes Assessment & Plan Assessment Current Active Medications: Generic Name Dose Route Start Last Admin Trade Name Freq PRN Reason Stop Dose Admin Acetaminophen 325 mg 11/05/24 09:48 Acetaminophen 325 Mg Tablet PO 12/03/24 15:31 Q6H PRN Fever >101.5 Aspirin 81 mg 11/04/24 09:00 11/07/24 08:03 Aspirin 81 Mg Chew GT 12/04/24 08:59 81 mg QDAY BETO Administration Atorvastatin Calcium 40 mg 11/03/24 21:00 11/06/24 20:22 Atorvastatin Calcium 20 Mg Tablet PO 12/03/24 20:59 40 mg HS BETO Administration Folic Acid 1 mg 11/04/24 09:15 11/07/24 08:03 Folic Acid Inj 1 Mg/0.2 Ml IVP 12/04/24 09:14 1 mg QDAY BETO Administration Heparin Sodium (Porcine) 5,000 unit 11/05/24 14:00 11/07/24 05:01 Heparin Sod Inj 5000 Unit/Ml Vial SC 11/19/24 13:59 5,000 unit Q8HR BETO Administration Norepinephrine/Dextrose 8 mg in 250 mls @ 5.63 mls/hr 11/03/24 14:57 11/06/24 21:45 Levophed In D5w 8mg/250ml IV 12/03/24 14:56 0 mcg/kg/min .Q24H PRN 0 mls/hr PER PROTOCOL Titration Protocol 0.05 MCG/KG/MIN Propofol 1,000 mg in 100 mls @ 1.802 mls/hr 11/06/24 08:06 Diprivan Ivpb IV 12/06/24 08:05 .Q24H PRN PER PROTOCOL Protocol 5 MCG/KG/MIN Fentanyl Citrate 2,500 mcg in 250 mls @ 2.5 mls/hr 11/06/24 08:06 Sublimaze Inj 2,500 Mcg/250 Ml Bag IV 11/11/24 08:05 .Q24H PRN PER PROTOCOL Protocol 25 MCG/HR Phenylephrine HCl 40 mg/ 100 mls @ 0.821 mls/hr 11/06/24 21:30 11/07/24 07:25 Sodium Chloride IV 12/06/24 21:29 0 mcg/kg/min .Q24H PRN 0 mls/hr Per Cardiogenic Protocol Titration Protocol 0.1 MCG/KG/MIN Ceftriaxone Sodium/Dextrose 1 gm in 50 mls @ 100 mls/hr 11/07/24 09:28 Rocephin/D5w 1gm Iv Premix IV 11/14/24 09:27 QDAY BETO Lactulose 20 gm 11/07/24 09:30 Lactulose Syrup 20 Gm/30 Ml Udc PO 12/07/24 08:59 TID BETO Protocol Midazolam HCl 2 mg 11/03/24 17:56 11/05/24 14:15 Midazolam Inj 1 Mg/Ml Vial 2 Ml IVP 11/08/24 17:59 2 mg Q2HR PRN Administration Anxiety or Agitation Ondansetron HCl 4 mg 11/03/24 15:32 Ondansetron Inj 2 Mg/Ml Inj 2 Ml IVP 12/03/24 15:31 Q6H PRN NAUSEA OR VOMITING Protocol Pantoprazole Sodium 40 mg 11/05/24 21:00 11/07/24 08:03 Pantoprazole Inj 40 Mg Vial IVP 12/05/24 20:59 40 mg BID BETO Administration Sennosides 1 tab 11/04/24 09:00 11/07/24 08:03 Senna Tablet PO 12/04/24 08:59 1 tab QDAY BETO Administration Protocol Sodium Chloride 3 ml 11/03/24 10:58 Sodium Chloride Rt Anastacia 0.9% 3 Ml Nebu INH 12/03/24 10:57 PRN PRN SOLN Thiamine HCl 200 mg 11/04/24 09:15 11/07/24 08:03 Thiamine Inj 100 Mg/Ml Vial 2 Ml IVP 11/09/24 09:14 200 mg BID BETO Administration Plan Summary: Mr. Trejo is a 49-year-old male with past medical history of hypertension and personal history of esophageal cancer status post-treatment in remission who presented to [facility] emergency department on 11/03/2024 with a chief complaint of weakness and shortness of breath. Neuro #Acute Encephalopathy #Alcohol withdrawal #?Warnicke encephalopathy - Patient is cachectic with temporal wasting, and BMI of 18.3 kg/m?, likely sensitive to sedation from recent benzodiazepine treatment Differential Diagnoses: - Consider hepatic encephalopathy in the setting of alcohol use - Consider delirium tremens in the presence of alcohol withdrawal Plan: - IV Thiamine and folate - Lactulose 20 GM p.o. 3 times daily - Versed 2 mg held Cardiac #Shock Differential diagnosis: - Distributive shock: Likely septic in setting of severe pneumonia, patient had significantly elevated lactate on presentation, Pro-Jonny elevated. Plan: - Changed to Zosyn to ceftriaxone #HFrEF, EF 35 to 40% #Suspicion of Takotsubo cardiomyopathy - Echo 11/03/2024 showed ejection fraction 35 to 40%, decreased apical motion - Patient is net positive half a liter in the past 24 hours - Patient went back on Levophed evening of 11/06/2024, was switched to phenylephrine in order to increase diastolic filling time, off pressors morning of 11/07/2024 - Appears intravascularly dry evidenced by hypernatremia and lack of edema on physical exam Plan: - 250 mL fluid bolus, received 3 on 11/08/2019 per NICOM assessment?750 cc total - IVC assessment at bedside, to 1.5 - Hold GDMT, blood pressure soft - Resume Levophed as needed #NSTEMI type II most likely type I - Troponin down trended - Cardiology consulted Pulmonary #Acute hypoxic respiratory failure secondary to pneumonia, respiratory failure in setting of shock #Aspiration pneumonia Differential diagnosis: - Consider aspiration pneumonia in the presence of dysphagia due to history of esophageal cancer Diagnostic workup: - Initial ABG shows pH 7.35, pCO2 21, pO2 193, bicarb 12, patient on high flow nasal cannula in ED, significantly tachypneic, increased work of breathing, respiratory rate in 40s, accessory muscle use noted. - ABG 11/07/2024 shows pH 7.49, PCO2 39, pO2 71, HCO3 29, O2 saturation 96.. 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 #Transaminitis #Suspected hepatic encephalopathy #GI bleed workup #Melena Diagnostic workup: - CTA abdomen showed evidence of cirrhosis - Per the patient's family member the patient consumes 2 bottles of hard alcohol on a daily basis in addition to beer - Hepatitis panel negative - Patient remains GCS 6T after 24 hours of being off sedation, consider hepatic encephalopathy - CT chest abdomen pelvis showed cirrhosis - AST 206 ALT 166 11/07/2024, roughly 2:1 ratio may reflect alcoholic component - MELD score of 6, 1.9% estimated 3-month mortality - Child-Pug Score: 8 - IVC diameter visualized on ultrasound was measured to be 1.5 cm after 3 250 mL LR boluses, fluid visualized around Morison's pouch on ultrasound - Official liver ultrasound today shows ascites - Patient had large dark bowel movement 11/04 - Hemoglobin 8.7 11/07/2024 - Heparin and aspirin held Plan: - Continue folate and thiamine - Lactulose 20 GM p.o. 3 times daily, titrate to 4-5 bowel movements - Octreotide gtt. - Continue Protonix twice daily - Type and screen done - Follow H&H at midnight #Personal history of esophageal cancer, in remission Differential diagnosis: Patient is status post esophagectomy Diagnostic workup: - Patient reported self history of esophageal cancer reports completed treatment heart disease in remission - History of esophagectomy, there is suspicion of underlying dysphagia Treatment: - EGD today Follow-up: - Hold tube feeds #Large right inguinal hernia #Dilated bowel loops Differential diagnosis: Incarcerated hernia, ileus Diagnostic workup: - CTA abdomen pelvis shows dilated bowel loops, there is a large right inguinal hernia noted on imaging as well - On physical exam hernia is reducible, low suspicion of incarceration Treatment: - General Surgery consulted, appreciate recommendations Follow-up: - Follow-up with general surgery and gastroenterology Renal/Genitourinary #Hypernatremia Differential diagnosis: Hypovolemia - Was given IV fluid in the emergency department in addition to Lasix Diagnostic workup: - Sodium is 148 up from 147 - Calculated free water deficit is -1.9 L - Appears intravascularly dry Plan: - Continue to monitor urine output - 250 mL fluid bolus #Hypokalemia Diagnostic workup: - Potassium 3.1 on morning labs Plan: - 40 of potassium given #Lactic acidosis, resolved #High anion gap metabolic acidosis, resolved Endocrine No active problems Hematology #Leukocytosis, improving Diagnostic workup: - WBC 18.0 from 15.7 - Consider acute phase reaction in combination with stress dose steroids Treatment: - Follow CBC in a.m. #Normocytic normochromic anemia Differential diagnosis: Nutritional deficiency, in the setting of sepsis, GI bleed, low suspicion of hemolysis Diagnostic workup: - Hemoglobin 8.1 on presentation - Hemoglobin 8.3 hematocrit 25.6 11/06/2024 Treatment: - Follow CBC in a.m. - Continue folic acid and vitamin B12 #Thrombocytosis, (resolved) Infectious Disease #Pneumonia Diagnostic workup: - Chest x-ray significant for bibasilar infiltrates Plan: - Change Zosyn to ceftriaxone - Cultures negative Integumentary No active problems DVT prophylaxis: Holding due to possible GI bleed GI prophylaxis: IV Protonix twice a day Diet: NPO Tubes: Endotracheal tube Lines: Peripheral IV, right IJ triple-lumen Code status: Full code Dispo: Sedation is off. Will continue to monitor for alcohol withdrawal. Patient was seen and discussed with my attending Dr. Kyleigh Mcclendon M.D., and my senior resident Dr. Dom Darby M.D. PGY-2. Vern Fairchild D.O. PGY?1.
--- NOTE | 2024-11-07 10:10 | PD.INTPROG ---
Documentation for date of: 11/07/24 Subjective Subjective Interval history: This is a 49-year-old male admitted to the ICU on 03 November. He was admitted with acute respiratory failure and significant metabolic acidosis along with shock. It was originally unclear if this was cardiogenic versus septic shock. The patient bedside echo did show a Takotsubo type cardiomyopathy. It was later discovered the patient also had a history of alcohol abuse. He was also started on thiamine and scheduled Librium as well as phenobarb. His shock is resolved and he is off of pressors. He remains intubated and on minimal sedation. His fentanyl was held this morning. He has a GCS of about 6T. Overnight he has been afebrile with a good urinary output. He is net +3 L from his hospital stay thus far. He had a echocardiogram done on 03 November which showed a decreased EF of 35 to 40% with apical akinesia moderate pulmonary hypertension with a right ventricular systolic pressure 65 and ABBI was noted on echo. 11/07- overnight pt dropped his pressures again requiring vasopressor support. he was transitioned from levo to shira. he was weened off this AM. He has been off all sedation for 24hrs and still has a GCS of 7T. has had good UOP and yesterday received low dose carvedilol, lisinopril and lasix ? if this affected his pressures v tachycardia and obstruction of LVOT, has had several episodes of black stools Critical Care Note Critical care time (min.): 43 Exam Vital Signs Temp Pulse Resp BP Pulse Ox O2 Del Method O2 Flow Rate 98.5 F 115 H 30 H 95/63 97 Mechanical Ventilation 65 11/07/24 04:00 11/07/24 08:41 11/03/24 17:45 11/07/24 08:41 11/07/24 07:00 11/06/24 16:00 11/04/24 00:00 FiO2 21 11/07/24 07:28 Narrative Exam Gen- NAD, intubated, off sedation, cachectic in appearence HEENT- NC/AT, mucosa hydrated, sclera anicteric, PERRL, ETT/OGT in place Chest- LCTAB, HRRR, tachy, murmur, no increase in WOB, breathing over the vent Abd- s/nt/bs+ , firm Ext- no edema, pulses palp, no clubbing, no mottling, withdrawal of b/l LE, bedside echo done which showed flat IVC with decreased contractility of base , no significant pericardial effusion Vent AC VC Physical Exam Completion Physical Exam Complete?: Yes Objective - Radiographer Cardiac Catheterization Labs 11/08/24 05:08 11/08/24 05:08 Labs: Laboratory Results - last 24 hr 11/06/24 11/07/24 11/07/24 21:45 04:36 05:59 WBC 18.0 H RBC 2.59 L Hgb 8.3 L Hct 25.6 L MCV 99 MCH 32.0 MCHC 32.4 RDW Std Deviation 64.9 H Plt Count 227 Neut % (Auto) 66 Lymph % (Auto) 11 [place] % (Auto) 17 H Eos % (Auto) 3 Baso % (Auto) 0 Neut # (Auto) 11.8 H Lymph # (Auto) 1.9 [place] # (Auto) 3.1 H Eos # (Auto) 0.5 Baso # (Auto) 0.0 Immature Gran # (Auto) 0.61 H Absolute Nucleated RBC 0.95 H Immature Gran % 3 H Nucleated RBC % 5 H PT 11.3 INR 1.0 APTT 30.1 Puncture Site Right Radial ABG pH 7.49 H ABG pCO2 39 ABG pO2 71 L D ABG HCO3 29 H ABG O2 Saturation 96 ABG Base Excess 6 H VBG pH 7.49 VBG pCO2 39 D VBG pO2 39 VBG O2 Sat (Brayan) 75 L D VBG Base Excess 6 H FiO2 21 Sodium 148 H Potassium 3.1 L D Chloride 109 H Carbon Dioxide 30.8 Anion Gap 8 BUN 22 Creatinine 0.8 Estim Creat Clear Calc 84.7 eGFR > 60 BUN/Creatinine Ratio 28 H Glucose 134 H Calculated Osmolality 299 H Calcium 7.9 L Corrected Calcium 8.6 Phosphorus 2.4 Magnesium 2.4 Total Bilirubin 0.6 AST 206 H ALT 166 H Alkaline Phosphatase 126 H Total Protein 5.5 L Albumin 3.1 L Globulin 2.4 Albumin/Globulin Ratio 1.3 Assessment & Plan Additional Assessment Additional Assessment: In brief this is a 49yo M admitted for shock and resp failure to the ICU a/p CUSTOMER LOYALTY REPRESENTATIVE ETOH withdrawal- on thiamine and folate - phenobarb and librium held since yesterday morning - off all sedation Encephalpathy- unclear etiology - off all sedation - HCT ordered - ? hepatic encephalopathy given ongoing black stools -> lactulose CV HFrEF- started on lasix, BB, ACEI -> all held today given drop in BP - good UOP - noted to have cardiomyopathy with ABBI physiology - will need further eval with cards once improved Shock- resolved Resp Acute resp failure- currently over sedated - ween as able - on minimal FiO2 - fu on ABG and CXR Renal HyperNa- provide free water - increase today Lactic acidosis- improved HypoCa- replete IV Metabolic Alkalosis- felt to be a contraction alkalosis and due to some intravascular depletion, bedside echo today showed flat IVF, will give small amount of fluids back HypoK- replete with IV K GI ETOH hepatitis- fu on repeat labs - slow trend to improvement - obtain US today Hypoalbuminemia- 2/2 cirrhosis GI proph- PPI ? GIB- black stools noted and placed on BID PPI - GI consulted on arrival due to difficulty passing NGT and h/o esophageal ca - will be for EGD today - started on octreotide today Endo stable Heme Leukocytosis- reactive v infectious Anemia- no active bleed noted however there is a suspicion for slow GI ooze - no indication for transfusion at this time - no significant change Thrombocytosis- likely reactive in nature - improved DVT proph- heparin-> hold for today ID PNA- on zosyn - cx neg so will transition to ceftri case d/w ICU team labs, imaging, records reviewed ~ 43ccmin required for eval, exam, review, intervention, discussion and formulation of POC for this critically ill pt with resp failure on MV at high risk for further and ongoing decompensation Provider Notation Provider Notation: Although this document has been carefully reviewed, there may still be some phonetic and other typographical errors. These errors are purely grammatical due to imperfections in the software program and should not be construed in any way to compromise the substance of the patient's medical care during this visit. Thank you for the opportunity and privilege in assisting you with this patient's care and management.
[2024-11-07] MEDS: RINGERS LACTATED 1000 ML 250 ML 999 ML IV ×3 (10:12→14:46)
[2024-11-07] MEDS: cefTRIAXone/D5w 1gm IV premix 1 GM/50 ML BAG IV (10:16)
[2024-11-07] MEDS: LACTULOSE SYRUP 20 GM/30 ML UDC NG ×3 (10:27→21:32)
[2024-11-07 10:33] LABS: Iron 19 mcg/dL (65-175); Percent Iron Saturation 7 % (20-55); Total Iron Binding Capacity 267 mcg/dL (250-425); Unsaturated Iron Binding 248 (225-295)
--- NOTE | 2024-11-07 10:40 | PD.RESPRO ---
Documentation for date of: 11/07/24 Subjective Subjective Interval history: The patient was seen and examined at the bedside this morning. Continues to be sedated, intubated and mechanically ventilated. Continues to be in pressor support. Avoid inotropic's pressor support. Significant improvement in lactic acid level to 2.5 from 16 . White count still elevated, with hemoglobin 8.4. Improvement in pH and bicarb. Creatinine improving. Liver enzymes trending down. Repeat chest x-ray revealed significant improvement in bilateral pneumonia. TTE done on 11/04/2024 revealed Normal LV size and mildly decreased LV systolic function with an EF of around 40 to 45%. EF improved from yesterday. Hypokinesis of the mid to apical anterior and anterolateral and apical segments appear improved. Apical akinesis still noted. Sigmoid septum noted with LVOT obstruction leading to moderate to severe eccentric MR directed anteriorly. Gradient measurement not accurate due to contamination with MR jet. Normal RV size and function. No pericardial effusion -Diuretics and IV fluids as needed depending on the patient's fluid status. -Currently patient is in shock, GDMT was started on the patient as blood pressure and other vitals were stable off pressors, but again MAP < 65 and was given 500cc bolus fluid this morning with improvement in BP and mild improvement in HR . Ok to hold GDMT for now and start on metoprolol tartarate 12.5 mg bid when BP stable. Exam Vital Signs Temp Pulse Resp BP Pulse Ox O2 Del Method O2 Flow Rate 98.6 F 106 H 30 H 84/54 L 99 Mechanical Ventilation 65 11/07/24 08:00 11/07/24 10:30 11/03/24 17:45 11/07/24 10:30 11/07/24 10:30 11/07/24 08:00 11/04/24 00:00 FiO2 21 11/07/24 07:28 Narrative Exam General: No acute distress, sedated, intubated and mechanically ventilated HEENT: Moist mucous membranes, oropharynx clear Neck: Supple, No masses, No JVD CVS: S1S2 Regular rate and rhythm, No murmurs, rubs or gallops Lungs: Mild wheezing throughout the lung field, rhonchi appreciated throughout the lung field, mild bibasilar crackles appreciated Abd: Soft, NT/ND, +BS, hepatomegaly appreciated Ext: No edema, warm and well perfused Skin: No rash Psych: Unable to obtain Objective Labs 11/07/24 12:00 11/07/24 04:36 Labs: Laboratory Results - last 24 hr 11/06/24 11/07/24 11/07/24 21:45 04:36 05:59 WBC 18.0 H RBC 2.59 L Hgb 8.3 L Hct 25.6 L MCV 99 MCH 32.0 MCHC 32.4 RDW Std Deviation 64.9 H Plt Count 227 Neut % (Auto) 66 Lymph % (Auto) 11 [place] % (Auto) 17 H Eos % (Auto) 3 Baso % (Auto) 0 Neut # (Auto) 11.8 H Lymph # (Auto) 1.9 [place] # (Auto) 3.1 H Eos # (Auto) 0.5 Baso # (Auto) 0.0 Immature Gran # (Auto) 0.61 H Absolute Nucleated RBC 0.95 H Immature Gran % 3 H Nucleated RBC % 5 H PT 11.3 INR 1.0 APTT 30.1 Puncture Site Right Radial ABG pH 7.49 H ABG pCO2 39 ABG pO2 71 L D ABG HCO3 29 H ABG O2 Saturation 96 ABG Base Excess 6 H VBG pH 7.49 VBG pCO2 39 D VBG pO2 39 VBG O2 Sat (Brayan) 75 L D VBG Base Excess 6 H FiO2 21 Sodium 148 H Potassium 3.1 L D Chloride 109 H Carbon Dioxide 30.8 Anion Gap 8 BUN 22 Creatinine 0.8 Estim Creat Clear Calc 84.7 eGFR > 60 BUN/Creatinine Ratio 28 H Glucose 134 H Calculated Osmolality 299 H Calcium 7.9 L Corrected Calcium 8.6 Phosphorus 2.4 Magnesium 2.4 Iron 19 L TIBC 267 Iron Saturation 7 L Unsat Iron Binding 248 Total Bilirubin 0.6 AST 206 H ALT 166 H Alkaline Phosphatase 126 H Total Protein 5.5 L Albumin 3.1 L Globulin 2.4 Albumin/Globulin Ratio 1.3 ABG Interpretation ABG results: 11/03/24 11/03/24 11/03/24 11:20 14:11 17:06 ABG pH 7.35 7.34 L 7.20 L D ABG pCO2 21 L 20 L 45 D ABG pO2 193 H 82 L D 78 L ABG HCO3 12 L 11 L 16 L ABG O2 Saturation 100 H 96 91 ABG Base Excess -12 L -14 L -12 L VBG pH VBG pCO2 VBG pO2 VBG Base Excess 11/04/24 11/04/24 11/04/24 00:00 04:29 05:15 ABG pH 7.50 H D ABG pCO2 30 L D ABG pO2 109 H D ABG HCO3 23 ABG O2 Saturation 100 H ABG Base Excess 1 VBG pH 7.43 7.52 VBG pCO2 35 L 27 L VBG pO2 43 57 VBG Base Excess -1 0 11/05/24 11/06/24 11/06/24 04:49 03:40 21:45 ABG pH 7.48 H 7.41 ABG pCO2 35 43 ABG pO2 74 L D 108 D ABG HCO3 26 27 H ABG O2 Saturation 96 99 H ABG Base Excess 3 2 VBG pH 7.49 VBG pCO2 39 D VBG pO2 39 VBG Base Excess 6 H 11/07/24 05:59 ABG pH 7.49 H ABG pCO2 39 ABG pO2 71 L D ABG HCO3 29 H ABG O2 Saturation 96 ABG Base Excess 6 H VBG pH VBG pCO2 VBG pO2 VBG Base Excess Quality Measures Quality Measures sepsis Current suspected stage: septic shock (LA >4 and/or hypotension) Sepsis reassessment completed at (date): 11/07/24 Sepsis reassessment completed at (time): 10:15 Possible source: pulmonary Blood cultures ordered: completed in ED Antibiotic ordered: Yes Assessment & Plan Assessment Current Active Medications: Generic Name Dose Route Start Last Admin Trade Name Freq PRN Reason Stop Dose Admin Acetaminophen 325 mg 11/05/24 09:48 Acetaminophen 325 Mg Tablet PO 12/03/24 15:31 Q6H PRN Fever >101.5 Aspirin 81 mg 11/04/24 09:00 11/07/24 08:03 Aspirin 81 Mg Chew GT 12/04/24 08:59 81 mg QDAY BETO Administration Atorvastatin Calcium 40 mg 11/03/24 21:00 11/06/24 20:22 Atorvastatin Calcium 20 Mg Tablet PO 12/03/24 20:59 40 mg HS BETO Administration Folic Acid 1 mg 11/04/24 09:15 11/07/24 08:03 Folic Acid Inj 1 Mg/0.2 Ml IVP 12/04/24 09:14 1 mg QDAY BETO Administration Heparin Sodium (Porcine) 5,000 unit 11/05/24 14:00 11/07/24 05:01 Heparin Sod Inj 5000 Unit/Ml Vial SC 11/19/24 13:59 5,000 unit Q8HR BETO Administration Norepinephrine/Dextrose 8 mg in 250 mls @ 5.63 mls/hr 11/03/24 14:57 11/06/24 21:45 Levophed In D5w 8mg/250ml IV 12/03/24 14:56 0 mcg/kg/min .Q24H PRN 0 mls/hr PER PROTOCOL Titration Protocol 0.05 MCG/KG/MIN Propofol 1,000 mg in 100 mls @ 1.802 mls/hr 11/06/24 08:06 Diprivan Ivpb IV 12/06/24 08:05 .Q24H PRN PER PROTOCOL Protocol 5 MCG/KG/MIN Fentanyl Citrate 2,500 mcg in 250 mls @ 2.5 mls/hr 11/06/24 08:06 Sublimaze Inj 2,500 Mcg/250 Ml Bag IV 11/11/24 08:05 .Q24H PRN PER PROTOCOL Protocol 25 MCG/HR Phenylephrine HCl 40 mg/ 100 mls @ 0.821 mls/hr 11/06/24 21:30 11/07/24 07:25 Sodium Chloride IV 12/06/24 21:29 0 mcg/kg/min .Q24H PRN 0 mls/hr Per Cardiogenic Protocol Titration Protocol 0.1 MCG/KG/MIN Ceftriaxone Sodium/Dextrose 1 gm in 50 mls @ 100 mls/hr 11/07/24 09:28 11/07/24 10:16 Rocephin/D5w 1gm Iv Premix IV 11/14/24 09:27 100 mls/hr QDAY BETO Administration Octreotide Acetate 1,000 mcg/ 102 mls @ 5.1 mls/hr 11/07/24 10:16 Sodium Chloride IV 11/12/24 10:15 .Q20H BETO Protocol 50 MCG/HR Lactulose 20 gm 11/07/24 14:00 Lactulose Syrup 20 Gm/30 Ml Udc NG 12/07/24 13:59 TID BETO Protocol Midazolam HCl 2 mg 11/03/24 17:56 11/05/24 14:15 Midazolam Inj 1 Mg/Ml Vial 2 Ml IVP 11/08/24 17:59 2 mg Q2HR PRN Administration Anxiety or Agitation Midodrine 5 mg 11/07/24 14:00 Midodrine 5 Mg Tablet PO 12/07/24 13:59 TID BETO Ondansetron HCl 4 mg 11/03/24 15:32 Ondansetron Inj 2 Mg/Ml Inj 2 Ml IVP 12/03/24 15:31 Q6H PRN NAUSEA OR VOMITING Protocol Pantoprazole Sodium 40 mg 11/05/24 21:00 11/07/24 08:03 Pantoprazole Inj 40 Mg Vial IVP 12/05/24 20:59 40 mg BID BETO Administration Sennosides 1 tab 11/04/24 09:00 11/07/24 08:03 Senna Tablet PO 12/04/24 08:59 1 tab QDAY BETO Administration Protocol Sodium Chloride 3 ml 11/03/24 10:58 Sodium Chloride Rt Anastacia 0.9% 3 Ml Nebu INH 12/03/24 10:57 PRN PRN SOLN Thiamine HCl 200 mg 11/04/24 09:15 11/07/24 08:03 Thiamine Inj 100 Mg/Ml Vial 2 Ml IVP 11/09/24 09:14 200 mg BID BETO Administration Plan The patient is a 49-year-old male with significant past medical history of esophageal cancer currently on remission, and hypertension presented to ED with chief complaint of acute SOB and generalized weakness is currently being treated for septic shock, Takotsubo syndrome complicated by sigmoid interventricular septum further leading to tachycardia and NSTEMI type II. #Acute hypoxic respiratory failure 2/2 #Septic shock 2/2 #Aspiration pneumonia #Severe lactic acidosis, improving The patient presented with blood pressure of 81/51, pulse 127, RR 40, and white count 33.8 meeting 3/4 SIRS criteria, chest x-ray significant for right sided middle and lower lobe pneumonia, CT chest abdomen and pelvis revealing right middle and lower lobe pneumonia, and left lower lobe pneumonia, and lactic acid level of 16, with endorgan failure as acute hypoxic respiratory failure requiring intubation. Patient received 2.5 L of bolus IV fluid - Continue with aggressive IV antibiotics - Blood and urine culture sent, negative so far. - IgM for coccidiomycosis, negative - Pressor support, and recommended to avoid inotropes in the setting of sigmoid interventricular septum complicating Takotsubo syndrome. #Abnormal EKG, likely 2/2 #Takotsubo syndrome vs LAD, complicated by #Sigmoid interventricular septum, possibly leading to #Moderate to severe eccentric MR, leading to #Moderate to severe PAH #HFrEF with apical akinesis EKG was significant for sinus tachycardia with deep symmetric T wave inversion in lateral leads V4 to V6, and inverted T waves in lead I and aVL. TTE on 11/03/2024 revealed: Normal LV size and moderate LV systolic dysfunction with an EF of 35 to 40%. Apical akinesis with hypokinesis of the mid to apical anterior, anterolateral and apical septal segments indicating possible Takotsubo syndrome versus LAD involvement. RV Normal in size and function. 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 Severe LA dilatation. Trace AI Moderate TR with mild RA dilatation. No Pericardial Effusion. IVC not well-visualized. Repeat limited TTE on 11/04/2024 revealed: Normal LV size and mildly decreased LV systolic function with an EF of around 40 to 45%. EF improved from yesterday. Hypokinesis of the mid to apical anterior and anterolateral and apical segments appear improved. Apical akinesis still noted. Sigmoid septum noted with LVOT obstruction leading to moderate to severe eccentric MR directed anteriorly. Gradient measurement not accurate due to contamination with MR jet. Normal RV size and function. No pericardial effusion -As the patient has sigmoid interventricular septum, and recent stressor likely leading to Takotsubo syndrome, leading to tachycardia of upper left ventricular, which is further pulling in mitral valve leading to MR resulting with moderate to severe PAH. -Volume status is critical, to maintain euvolemia, as hypovolemia will cause decrease venous return, resulting as compensatory tachycardia of upper left ventricle leading to further MR, with increased pulmonary arterial pressure and shunt reversal. On the other hand, if there is hypervolemia leading to increased venous return, will complicate MR and increased pulmonary artery pressure. -Diuretics and IV fluids as needed depending on the patient's fluid status. -Currently patient is in shock, GDMT was started on the patient as blood pressure and other vitals were stable off pressors, but again MAP < 65 and was given 500cc bolus fluid this morning with improvement in BP and mild improvement in HR . Ok to hold GDMT for now and start on metoprolol tartarate 12.5 mg bid when BP stable. #NSTEMI type II, less likely type I Likely multifactorial secondary to septic shock, Takotsubo syndrome, sigmoid interventricular septum leading to MR. No significant risk factor for STEMI, except for hypertension, as patient denies smoking or illicit drug use, and lipid panel was significant for LDL 39 and HDL 53. EKG unremarkable for STEMI - Heparin drip stopped - May consider cardiac catheterization after the patient is stable - Aspirin 81 Mg daily - Atorvastatin 40 Mg daily at night Thank you for cardiology consultation. We really appreciate for the opportunity to participate in this patient care. Cardiology team will continue to follow-up on this patient. The patient's management plan was discussed with my attending physician MD Ventura Montes MD, PGY3 Attending Provider Attestation/Addendum I have personally seen and examined the patient separately on the above date of service and discussed the plan of care with the resident. I reviewed the resident Dr. Ventura Myers consultation progress note and agree with the resident findings and plan in the note above and have also edited the documentation to reflect my findings and plan. Patient continues to be tachycardic around 100 bpm his tachycardia improved after switching to phenylephrine yesterday. Also patient received 100 cc of fluid bolus today which mildly improved his tachycardia as well as blood pressure. Pressor requirements have decreased and phenylephrine has been stopped this morning. Blood pressure is stable with a systolic of 100-110 mmHg. His tachycardia appears to be multifactorial from severe anemia along with alcohol withdrawal and the sepsis. Anemia workup done shows severe iron deficiency anemia with saturation of only 7%. Also MCV is elevated at 99. Given his severe alcohol abuse patient is probably B12 as well as folate deficient. Patient would benefit from replacement of iron and B12 and folate which will eventually help anemia long-term and improve his tachycardia which would help with his LVOT obstruction and ABBI along with improvement of sepsis and alcohol withdrawal syndrome. Patient can be started on beta-jordan metoprolol tartrate 12.5 mg twice daily as part of GDMT when blood pressure is stable. GI team is also been consulted for the anemia with black stools and to rule out esophageal varices and bleeding. Patient still continues to have alcohol withdrawal and CT has been ordered for his neurological status. Ammonia on admission was 78. Overall patient condition critical and prognosis is guarded. There is a high probability of sudden, clinically significant or life threatening deterioration in the patient condition which required the highest level of physician preparedness to intervene urgently. I have personally spent 35 minutes of critical care time, exclusive of time spent on any procedures, in evaluation and management of this critically ill patient. Colin Brandt M.D. Interventional Cardiology
[2024-11-07] MEDS: OCTREOTIDE ACET INJ 50 mCg/ML VIAL IV (10:51)
[2024-11-07] MEDS: OCTREOTIDE ACET INJ 1,000 MCG in SODIUM CHLORIDE 0.9% 100 ML 5.1 MCG IV (10:51)
[2024-11-07 12:31] LABS: Hematocrit 24.5 % (41.0-53.0)
[2024-11-07 12:32] LABS: Hemoglobin 8.0 g/dL (13.5-16.0)
[2024-11-07] MEDS: MIDODRINE 5 MG TABLET PO ×2 (14:07→21:31)
[2024-11-07] MEDS: ATORVASTATIN CALCIUM 20 MG TABLET 40 MG PO (21:33)
[2024-11-08] VITALS (52 sets, daily range): BP systolic 85–124; BP diastolic 54–85; PULSE 70–117; RESP 15–37; TEMP 36.8–37.7; O2SAT 90–100; BMI 17.9
[2024-11-08 00:59] LABS: Hematocrit 24.7 % (41.0-53.0)
[2024-11-08 01:00] LABS: Hemoglobin 8.1 g/dL (13.5-16.0)
[2024-11-08 04:29] LABS: Base Excess 5 (-3-3); HCO3 29 mEq/L (20-26); Inspired Oxygen, FIO2 21 %; O2 Saturation 97 % (91-98); PCO2 38 mmHg (32.0-48.0); PO2 77 mmHg (83-108); pH, Arterial 7.48 (7.35-7.45)
[2024-11-08 04:31] LABS: Allen Test Performed/OK; Puncture Site Right Radial
--- NOTE | 2024-11-08 05:00 | XR_ITS ---
Examination: AP chest single view TECHNIQUE: AP portable semiupright chest single view Date and time: November 08, 2024 0700 hours Comparison November 07, 2024 INDICATIONS: Hypoxic respiratory failure. FINDINGS: Normal heart size. Moderate vascular congestion. Suspicious for early pneumonia right base. Endotracheal tube tip 3.3 cm above [place]. Right internal jugular central line tip SVC satisfactory position. Orogastric tube in the stomach IMPRESSION: Moderate vascular congestion Suspicious for early pneumonia right base
[2024-11-08] MEDS: OCTREOTIDE ACET INJ 1,000 MCG in SODIUM CHLORIDE 0.9% 100 ML 5.1 MCG IV (05:09)
[2024-11-08] MEDS: LACTULOSE SYRUP 20 GM/30 ML UDC NG ×3 (05:10→21:34)
[2024-11-08] MEDS: MIDODRINE 5 MG TABLET PO ×3 (05:10→21:34)
[2024-11-08 06:33] LABS: INR 1.0 (0.9-1.3); Partial Thromboplastin Time 27.6 Seconds (22.0-36.0); Prothrombin Time 11.3 Seconds (9.0-12.2)
[2024-11-08 06:35] LABS: Basophils # (Auto) 0.0 Thou/mm3 (0.0-0.2); Basophils % (Auto) 0 % (0-2.5); Eosinophils # (Auto) 0.5 Thou/mm3 (0.0-0.5); Eosinophils % (Auto) 3 % (0-10); Hematocrit 24.7 % (41.0-53.0); Immature Granulocytes Auto 0.45 Thou/mm3 (0.00-0.00); Lymphocytes # (Auto) 1.7 Thou/mm3 (1.0-4.8); Lymphocytes % (Auto) 11 % (10-50); Mean Corpuscular HGB Conc 31.6 g/dl (31.0-37.0); Mean Corpuscular Hemoglobin 32.0 pg (25.0-35.0); Mean Corpuscular Volume 101 fL (80-100); Monocytes # (Auto) 2.7 Thou/mm3 (0.0-0.8); Monocytes % (Auto) 16 % (0-12); Neutrophils # (Auto) 11.1 Thou/mm3 (1.8-7.7); Neutrophils % (Auto) 67 % (37-80); Nucleated Red Blood Cell # 0.27 Thou/mm3 (0.00-0.00); Nucleated Red Blood Cell % 2 /100 WBC (0); Platelet Count 208 Thou/mm3 (140-440); RDW Standard Deviation 68.6 fL (35.1-43.9); Red Blood Count 2.44 Miln/mm3 (4.50-5.90); White Blood Count 16.5 Thou/mm3 (3.8-10.6)
[2024-11-08 06:43] LABS: Hemoglobin 7.8 g/dL (13.5-16.0)
[2024-11-08 07:05] LABS: Alanine Aminotransferase 132 U/L (10-49); Albumin, Serum 3.0 gm/dL (3.5-5.0); Albumin/Globulin Ratio 1.3 (1.2-2.2); Alkaline Phosphatase 101 U/L (46-116); Anion Gap 11 (7-16); Aspartate Amino Transferase 140 U/L (0-34); BUN/Creatinine Ratio 24 Ratio (12-20); Bilirubin,Total 0.6 mg/dL (0.3-1.2); Blood Urea Nitrogen 19 mg/dL (9-23); Calcium 7.8 mg/dL (8.3-10.6); Calcium (Corrected) 8.6 mg/dL (8.5-10.1); Carbon Dioxide 28.6 mMol/L (20.0-31.0); Chloride 111 mMol/L (98-107); Creatinine (Component) 0.8 mg/dL (0.6-1.3); Estimated Creatinine Clearance 82.8 mL/min (>60); Globulin 2.4 gm/dL (2.3-3.5); Glucose 114 mg/dL (74-106); Magnesium 2.1 mg/dL (1.6-2.6); Osmolality,Calculated 303 (275-295); Phosphorous 3.2 mg/dL (2.4-5.1); Potassium 4.1 mMol/L (3.4-5.1); Sodium 151 mMol/L (136-145); Total Protein 5.4 gm/dL (5.7-8.2); eGFR > 60 See Note
--- NOTE | 2024-11-08 07:30 | PC.NURSE ---
md torres made aware of patient not withdrawing to pain on upper bilateral ext but is withdrawing to pain to lower bilateral extremeties. no new orders
[2024-11-08] MEDS: THIAMINE INJ 100 MG/ML VIAL 2 ML 200 MG IVP ×2 (09:32→21:34)
[2024-11-08] MEDS: FOLIC ACID INJ 1 MG/0.2 ML IVP (09:32)
[2024-11-08] MEDS: cefTRIAXone/D5w 1gm IV premix 1 GM/50 ML BAG IV (09:33)
--- NOTE | 2024-11-08 11:09 | ESPR_ITS ---
Documentation for date of: 11/08/24 Subjective Subjective Interval history: This is a 49-year-old male admitted to the ICU on 03 November. He was admitted with acute respiratory failure and significant metabolic acidosis along with shock. It was originally unclear if this was cardiogenic versus septic shock. The patient bedside echo did show a Takotsubo type cardiomyopathy. It was later discovered the patient also had a history of alcohol abuse. He was also started on thiamine and scheduled Librium as well as phenobarb. His shock is resolved and he is off of pressors. He remains intubated and on minimal sedation. His fentanyl was held this morning. He has a GCS of about 6T. Overnight he has been afebrile with a good urinary output. He is net +3 L from his hospital stay thus far. He had a echocardiogram done on 03 November which showed a decreased EF of 35 to 40% with apical akinesia moderate pulmonary hypertension with a right ventricular systolic pressure 65 and ABBI was noted on echo. 11/07- overnight pt dropped his pressures again requiring vasopressor support. he was transitioned from levo to shira. he was weened off this AM. He has been off all sedation for 24hrs and still has a GCS of 7T. has had good UOP and yesterday received low dose carvedilol, lisinopril and lasix ? if this affected his pressures v tachycardia and obstruction of LVOT, has had several episodes of black stools 11/08-no acute overnight events, afebrile, good urinary output today patient still remains encephalopathic with profound weakness Critical Care Note Critical care time (min.): 45 Exam Vital Signs Temp Pulse Resp BP Pulse Ox O2 Del Method O2 Flow Rate 98.2 F 70 30 H 91/54 L 97 Mechanical Ventilation 65 11/08/24 04:00 11/08/24 06:43 11/03/24 17:45 11/08/24 06:43 11/08/24 06:43 11/08/24 06:00 11/04/24 00:00 FiO2 21 11/08/24 06:43 Narrative Exam General-no acute distress, intubated, off all sedation, able to follow some commands, generalized weakness, thin and cachectic HEENT-normocephalic, atraumatic, sclera anicteric, oral mucosa is hydrated, ET tube and OG tube in place Chest-lungs clear to auscultation bilaterally, heart rate regular and rhythmic, murmur noted, no increased work of breathing Abdomen-soft, nontender, bowel sounds present, no rebound or guarding Extremities-able to follow commands of lower extremities, does not appear to be able to withdrawal or move upper extremities, no clubbing, no mottling Vent AC/VC Physical Exam Completion Physical Exam Complete?: Yes Objective - Morphology Teacher Labs 11/09/24 05:00 11/09/24 05:00 Labs: Laboratory Results - last 24 hr 11/07/24 11/08/24 11/08/24 12:00 00:35 04:19 WBC RBC Hgb 8.0 L 8.1 L Hct 24.5 L 24.7 L MCV MCH MCHC RDW Std Deviation Plt Count Neut % (Auto) Lymph % (Auto) [place] % (Auto) Eos % (Auto) Baso % (Auto) Neut # (Auto) Lymph # (Auto) [place] # (Auto) Eos # (Auto) Baso # (Auto) Immature Gran # (Auto) Absolute Nucleated RBC Immature Gran % Nucleated RBC % PT INR APTT Puncture Site Right Radial ABG pH 7.48 H ABG pCO2 38 ABG pO2 77 L ABG HCO3 29 H ABG O2 Saturation 97 ABG Base Excess 5 H FiO2 21 Sodium Potassium Chloride Carbon Dioxide Anion Gap BUN Creatinine Estim Creat Clear Calc eGFR BUN/Creatinine Ratio Glucose Calculated Osmolality Calcium Corrected Calcium Phosphorus Magnesium Total Bilirubin AST ALT Alkaline Phosphatase Total Protein Albumin Globulin Albumin/Globulin Ratio 11/08/24 05:08 WBC 16.5 H RBC 2.44 L Hgb 7.8 L Hct 24.7 L MCV 101 H MCH 32.0 MCHC 31.6 RDW Std Deviation 68.6 H Plt Count 208 Neut % (Auto) 67 Lymph % (Auto) 11 [place] % (Auto) 16 H Eos % (Auto) 3 Baso % (Auto) 0 Neut # (Auto) 11.1 H Lymph # (Auto) 1.7 [place] # (Auto) 2.7 H Eos # (Auto) 0.5 Baso # (Auto) 0.0 Immature Gran # (Auto) 0.45 H Absolute Nucleated RBC 0.27 H Immature Gran % 3 H Nucleated RBC % 2 H PT 11.3 INR 1.0 APTT 27.6 Puncture Site ABG pH ABG pCO2 ABG pO2 ABG HCO3 ABG O2 Saturation ABG Base Excess FiO2 Sodium 151 H Potassium 4.1 D Chloride 111 H Carbon Dioxide 28.6 Anion Gap 11 BUN 19 Creatinine 0.8 Estim Creat Clear Calc 82.8 eGFR > 60 BUN/Creatinine Ratio 24 H Glucose 114 H Calculated Osmolality 303 H Calcium 7.8 L Corrected Calcium 8.6 Phosphorus 3.2 Magnesium 2.1 Total Bilirubin 0.6 AST 140 H ALT 132 H Alkaline Phosphatase 101 D Total Protein 5.4 L Albumin 3.0 L Globulin 2.4 Albumin/Globulin Ratio 1.3 Assessment & Plan Additional Assessment Additional Assessment: In brief this is a 49yo M admitted for shock and resp failure to the ICU a/p PR[employer] ETOH withdrawal- on thiamine and folate - phenobarb and librium held since yesterday morning - off all sedation Encephalpathy- unclear etiology, appears to have had some improvement from yesterday however still very lethargic - off all sedation - HCT negative - ? hepatic encephalopathy given ongoing black stools -> lactulose - Given significant change from arrival and inability to move upper extremities will obtain MRI as well as an EEG - Once results are obtained may require neuro eval CV HFrEF- started on lasix, BB, ACEI -> all held today given drop in BP - good UOP - noted to have cardiomyopathy with ABBI physiology - will need further eval with cards once improved -[place] to have been intravascularly dry yesterday and given some volume back, patient did well -Aspirin resumed today Shock- resolved Resp Acute resp failure- currently over sedated - ween as able - on minimal FiO2 - fu on ABG and CXR Renal HyperNa- provide free water - Started on 175 cc of free water every 4 hours via the NG tube Lactic acidosis- improved HypoCa- replete IV Metabolic Alkalosis- felt to be a contraction alkalosis and due to some intravascular depletion, bedside echo today showed flat IVF, will give small amount of fluids back HypoK-resolved today GI ETOH hepatitis- fu on repeat labs - slow trend to improvement - Continues to improve - Liver ultrasound did not show any significant pathology Hypoalbuminemia- 2/2 cirrhosis GI proph- PPI ? GIB- black stools noted and placed on BID PPI - GI consulted on arrival due to difficulty passing NGT and h/o esophageal ca - Underwent EGD yesterday with GI, no active bleeding noted, small esophageal varices which were unable to be banded - started on octreotide which GI recommends to continue for 5 days Endo stable Heme Leukocytosis- reactive v infectious -Trending down today Anemia- no active bleed noted however there is a suspicion for slow GI ooze - no indication for transfusion at this time - no significant change -Transfuse if hemoglobin drops below 7 Thrombocytosis- likely reactive in nature - improved DVT proph- heparin-> hold for today ID PNA- on zosyn - cx neg so will transition to ceftri case d/w ICU team labs, imaging, records reviewed ~ 45ccmin required for eval, exam, review, intervention, discussion and formulation of POC for this critically ill pt with resp failure on MV at high risk for further and ongoing decompensation Provider Notation Provider Notation: Although this document has been carefully reviewed, there may still be some phonetic and other typographical errors. These errors are purely grammatical due to imperfections in the software program and should not be construed in any way to compromise the substance of the patient's medical care during this visit. Thank you for the opportunity and privilege in assisting you with this patient's care and management.
--- NOTE | 2024-11-08 13:21 | ESPR_ITS ---
Documentation for date of: 11/08/24 Subjective Subjective Interval history: Mr. Trejo is a 49-year-old male with past medical history of hypertension and personal history of esophageal cancer status post-treatment in remission who presented to [facility] emergency department on 11/03/2024 with a chief complaint of weakness and shortness of breath. Patient seen in the emergency department, significantly tachypneic with increased work of breathing, patient reported that he had generalized weakness and fatigue for the last 2 weeks which did not improve and he developed significant severe shortness of breath today. Reported the shortness of breath to be progressive accompanied with coughing, denies any similar complains in the past and denies any sick contacts. Patient denies any recent fevers, chills, headache, weight loss and any other medical problems. Patient also complained that he had been under recent stress, unable to find a job has been looking for a job. ED physician consulted pocket creaser for possible ICU admission, on examination in ED patient had increased work of breathing, tachypneic and respiratory rate 40s, requiring high flow nasal cannula, SpO2 100. Per review of labs it was noted that patient is lactic acidosis/metabolic acidosis with compensated respiratory alkalosis. Patient was given Lasix 20 mg IV x 1 considering underlying chest x- ray findings, bedside echo showed apical hypokinesis, case was discussed with graphics manager on-call, echocardiogram was ordered in ED. Considering patient continued to have increased work of breathing, patient signed a POLST form for full treatment full code, discussed with patient's sister and patient regarding intubation and central line placement. Patient provided consent patient was intubated by pocket creaser team and postintubation right IJ triple-lumen central line placed. Patient admitted to the intensive care unit for acute hypoxic respiratory failure secondary to distributive shock, increased work of breathing. 11/04/24: Patient had black bowel movement overnight, 500 cc greenish fluid suctioned out of NG tube, was given aspirin earlier this morning, we will titrate down tidal volume lung protective volume goal 4 to 6 cc/kg, goal tidal volume for today is 320 will titrate down as patient tolerates, limited echo at bedside reviewed with instrument tech, there is some concern of LVOT obstruction patient's pressor requirement has improved, plan to titrate down vaso and replace vaso with phenylephrine, will start patient on thiamine IV twice daily and folate IV daily. Pending limited echo results. 11/05/24: Continues to have black bowel movements, hemoglobin stable, change Protonix to twice daily, reached out to patient's sister today, per patient's sister he is a chronic alcoholic, reports that he at least drinks 2 large bottles of hard liquor along with beers on a daily basis, patient is requiring high doses sedation, agitated at times has significant alcohol withdrawal, started on phenobarbital every 6 hours, chlordiazepoxide 50 3 times daily and patient also has Versed 2 mg as needed for anxiety. Patient has been off pressors, stop stress dose steroids, continue thiamine and folate acid. 11/06/24: Versed as needed. Precedex as needed for agitation. Continue thiamine and folic acid. Hypocalcemic, calcium gluconate X 1. Lasix 20mg x 1, lisinopril 2.5mg x 1, carvedilol 3.125 mg x 1, consider one-time dose of carvedilol 3.125 mg in the evening if blood pressure tolerates. Plan to wean the patient off of sedation today. 11/07/2024: Patient is off sedation. Patient is still lethargic. CT scan head ordered-negative for bleed. Lactulose 20 mg 3 times daily titrate to 4-5 BM. Liver ultrasound shows ascites. 3X 250 mL fluid boluses of LR goven per NICOM assessment, potassium repleted. Holding DVT prophylaxis and aspirin due to possible GI bleed. Started on Octreotide GTT, GI to scope later today. Zosyn switched to ceftriaxone. 11/08/2024: Patient continues to be off sedation. Following commands and opening eyes to voice, though patient is unable to move upper extremities. MRI ordered for concern of focal neurological deficit. Black tarry stools continue, EGD yesterday showed nonbleeding esophageal varices, will continue octreotide, lactulose, rifaximin, resume aspirin per GI recommendations. Patient is hypernatremic, will increase free water flushes to 175mL/4h. Ceftriaxone continued for the 5th day. Exam Vital Signs Temp Pulse Resp BP Pulse Ox O2 Del Method O2 Flow Rate 98.2 F 108 H 30 H 114/76 97 Mechanical Ventilation 65 11/08/24 04:00 11/08/24 11:13 11/03/24 17:45 11/08/24 11:13 11/08/24 11:13 11/08/24 06:00 11/04/24 00:00 FiO2 21 11/08/24 11:13 Narrative Exam General: Intubated, not sedated, cachectic, temporal wasting. Neurologic: GCS 10T, following commands, withdraws to pain lower extremities bilaterally but not upper. HEENT: Normocephalic, atraumatic, mucous membranes dry. Pupils reactive to light. Heart: Tachycardic, systolic murmur at the mitral listening post left fifth intercostal space sternal border. Lungs: Pectus excavatum, clear to auscultation bilaterally with wheezing B/L Abdomen: Right sided reducible inguinal hernia. Right lower quadrant bruise approximately 5 cm long at the site of heparin SQ inj. Extremities: 1+ pitting edema in the distal upper extremities bilaterally. No edema in the lower extremities bilaterally. 2+ radial and dorsalis pedis pulses bilaterally. Rt knee effusions. Skin: Cool. Dry. No rash Objective Labs 11/09/24 05:00 11/09/24 05:00 Labs: Laboratory Results - last 24 hr 11/08/24 11/08/24 11/08/24 00:35 04:19 05:08 WBC 16.5 H RBC 2.44 L Hgb 8.1 L 7.8 L Hct 24.7 L 24.7 L MCV 101 H MCH 32.0 MCHC 31.6 RDW Std Deviation 68.6 H Plt Count 208 Neut % (Auto) 67 Lymph % (Auto) 11 [place] % (Auto) 16 H Eos % (Auto) 3 Baso % (Auto) 0 Neut # (Auto) 11.1 H Lymph # (Auto) 1.7 [place] # (Auto) 2.7 H Eos # (Auto) 0.5 Baso # (Auto) 0.0 Immature Gran # (Auto) 0.45 H Absolute Nucleated RBC 0.27 H Immature Gran % 3 H Nucleated RBC % 2 H PT 11.3 INR 1.0 APTT 27.6 Puncture Site Right Radial ABG pH 7.48 H ABG pCO2 38 ABG pO2 77 L ABG HCO3 29 H ABG O2 Saturation 97 ABG Base Excess 5 H FiO2 21 Sodium 151 H Potassium 4.1 D Chloride 111 H Carbon Dioxide 28.6 Anion Gap 11 BUN 19 Creatinine 0.8 Estim Creat Clear Calc 82.8 eGFR > 60 BUN/Creatinine Ratio 24 H Glucose 114 H Calculated Osmolality 303 H Calcium 7.8 L Corrected Calcium 8.6 Phosphorus 3.2 Magnesium 2.1 Total Bilirubin 0.6 AST 140 H ALT 132 H Alkaline Phosphatase 101 D Total Protein 5.4 L Albumin 3.0 L Globulin 2.4 Albumin/Globulin Ratio 1.3 ABG Interpretation ABG results: 11/03/24 11/03/24 11/03/24 11:20 14:11 17:06 ABG pH 7.35 7.34 L 7.20 L D ABG pCO2 21 L 20 L 45 D ABG pO2 193 H 82 L D 78 L ABG HCO3 12 L 11 L 16 L ABG O2 Saturation 100 H 96 91 ABG Base Excess -12 L -14 L -12 L VBG pH VBG pCO2 VBG pO2 VBG Base Excess 11/04/24 11/04/24 11/04/24 00:00 04:29 05:15 ABG pH 7.50 H D ABG pCO2 30 L D ABG pO2 109 H D ABG HCO3 23 ABG O2 Saturation 100 H ABG Base Excess 1 VBG pH 7.43 7.52 VBG pCO2 35 L 27 L VBG pO2 43 57 VBG Base Excess -1 0 11/05/24 11/06/24 11/06/24 04:49 03:40 21:45 ABG pH 7.48 H 7.41 ABG pCO2 35 43 ABG pO2 74 L D 108 D ABG HCO3 26 27 H ABG O2 Saturation 96 99 H ABG Base Excess 3 2 VBG pH 7.49 VBG pCO2 39 D VBG pO2 39 VBG Base Excess 6 H 11/07/24 11/08/24 05:59 04:19 ABG pH 7.49 H 7.48 H ABG pCO2 39 38 ABG pO2 71 L D 77 L ABG HCO3 29 H 29 H ABG O2 Saturation 96 97 ABG Base Excess 6 H 5 H VBG pH VBG pCO2 VBG pO2 VBG Base Excess Quality Measures Quality Measures sepsis Current suspected stage: ruled out Possible source: pulmonary Blood cultures ordered: completed in ED Antibiotic ordered: Yes Assessment & Plan Assessment Current Active Medications: Generic Name Dose Route Start Last Admin Trade Name Freq PRN Reason Stop Dose Admin Acetaminophen 325 mg 11/05/24 09:48 Acetaminophen 325 Mg Tablet PO 12/03/24 15:31 Q6H PRN Fever >101.5 Aspirin 81 mg 11/04/24 09:00 11/07/24 08:03 Aspirin 81 Mg Chew GT 12/04/24 08:59 81 mg QDAY BETO Administration Atorvastatin Calcium 40 mg 11/03/24 21:00 11/07/24 21:33 Atorvastatin Calcium 20 Mg Tablet PO 12/03/24 20:59 40 mg HS BETO Administration Folic Acid 1 mg 11/04/24 09:15 11/08/24 09:32 Folic Acid Inj 1 Mg/0.2 Ml IVP 12/04/24 09:14 1 mg QDAY BETO Administration Heparin Sodium (Porcine) 5,000 unit 11/05/24 14:00 11/07/24 05:01 Heparin Sod Inj 5000 Unit/Ml Vial SC 11/19/24 13:59 5,000 unit Q8HR BETO Administration Norepinephrine/Dextrose 8 mg in 250 mls @ 5.63 mls/hr 11/03/24 14:57 11/06/24 21:45 Levophed In D5w 8mg/250ml IV 12/03/24 14:56 0 mcg/kg/min .Q24H PRN 0 mls/hr PER PROTOCOL Titration Protocol 0.05 MCG/KG/MIN Propofol 1,000 mg in 100 mls @ 1.802 mls/hr 11/06/24 08:06 Diprivan Ivpb IV 12/06/24 08:05 .Q24H PRN PER PROTOCOL Protocol 5 MCG/KG/MIN Fentanyl Citrate 2,500 mcg in 250 mls @ 2.5 mls/hr 11/06/24 08:06 Sublimaze Inj 2,500 Mcg/250 Ml Bag IV 11/11/24 08:05 .Q24H PRN PER PROTOCOL Protocol 25 MCG/HR Phenylephrine HCl 40 mg/ 100 mls @ 0.821 mls/hr 11/06/24 21:30 11/07/24 07:25 Sodium Chloride IV 12/06/24 21:29 0 mcg/kg/min .Q24H PRN 0 mls/hr Per Cardiogenic Protocol Titration Protocol 0.1 MCG/KG/MIN Ceftriaxone Sodium/Dextrose 1 gm in 50 mls @ 100 mls/hr 11/07/24 09:28 11/08/24 09:33 Rocephin/D5w 1gm Iv Premix IV 11/14/24 09:27 100 mls/hr QDAY BETO Administration Octreotide Acetate 1,000 mcg/ 102 mls @ 5.1 mls/hr 11/07/24 10:16 11/08/24 05:09 Sodium Chloride IV 11/12/24 10:15 50 mcg/hr .Q20H BETO 5.1 mls/hr Administration Protocol 50 MCG/HR Lactulose 20 gm 11/07/24 14:00 11/08/24 05:10 Lactulose Syrup 20 Gm/30 Ml Udc NG 12/07/24 13:59 20 gm TID BETO Administration Protocol Midodrine 5 mg 11/07/24 14:00 11/08/24 05:10 Midodrine 5 Mg Tablet PO 12/07/24 13:59 5 mg TID BETO Administration Ondansetron HCl 4 mg 11/03/24 15:32 Ondansetron Inj 2 Mg/Ml Inj 2 Ml IVP 12/03/24 15:31 Q6H PRN NAUSEA OR VOMITING Protocol Pantoprazole Sodium 40 mg 11/05/24 21:00 11/08/24 09:33 Pantoprazole Inj 40 Mg Vial IVP 12/05/24 20:59 40 mg BID BETO Administration Sennosides 1 tab 11/04/24 09:00 11/08/24 09:34 Senna Tablet PO 12/04/24 08:59 1 tab QDAY BETO Administration Protocol Sodium Chloride 3 ml 11/03/24 10:58 Sodium Chloride Rt Anastacia 0.9% 3 Ml Nebu INH 12/03/24 10:57 PRN PRN SOLN Thiamine HCl 200 mg 11/04/24 09:15 11/08/24 09:32 Thiamine Inj 100 Mg/Ml Vial 2 Ml IVP 11/09/24 09:14 200 mg BID BETO Administration Plan Summary: Mr. Trejo is a 49-year-old male with past medical history of hypertension and personal history of esophageal cancer status post-treatment in remission who presented to [facility] emergency department on 11/03/2024 with a chief complaint of weakness and shortness of breath. Neuro #AEP most likely hepatic versus metabolic versus focal neurological deficit versus less likely anoxic encephalopathy #Alcohol withdrawal (resolved) #Questionable [place] encephalopathy - Patient is cachectic with temporal wasting, and BMI of 18.3 kg/m. Patient has been off of sedation for 3 days - Consider hepatic encephalopathy in the setting of alcohol use, Imaging showed irregular liver contour, Ammonia was 78 on presentation. has LGIB. Plan: - IV Thiamine and folate - Lactulose 20 GM p.o. 3 times daily, Has 3 BM per day. - Rifxamin 550mg BID - MRI head - EEG #Questionable focal Neurological Deficit - Motor deficit isolated to the bilateral upper extremities. severe lethargy Differential diagnosis: - Consider cerebrovascular event in the setting of sepsis, hypotension Plan: - MRI to R/O watershed infarcts Cardiac #Shock Differential diagnosis: - Distributive shock: Likely septic in setting of severe pneumonia, patient had significantly elevated lactate on presentation, Pro-Jonny elevated. Plan: -Continue ceftriaxone, last dose on the 10 of November #HFrEF, EF 35 to 40% #Suspicion of Takotsubo cardiomyopathy #Possible LVOT obstruection 05/31 [facility] - Echo 11/03/2024 showed ejection fraction 35 to 40%, decreased apical motion - Patient is net positive half a liter in the past 24 hours - Patient went back on Levophed evening of 11/06/2024, was switched to phenylephrine in order to increase diastolic filling time, off pressors morning of 11/07/2024 - Appears intravascularly dry evidenced by hypernatremia and lack of edema on physical exam Plan: - Midodrine 5 mg p.o. 3 times daily - Routine free water flushes #NSTEMI type II most likely type I - Troponin down trended - Cardiology consulted Pulmonary #Acute hypoxic respiratory failure secondary to pneumonia, respiratory failure in setting of shock #Aspiration pneumonia Differential diagnosis: - Consider aspiration pneumonia in the presence of dysphagia due to history of esophageal cancer Diagnostic workup: - Initial ABG shows pH 7.35, pCO2 21, pO2 193, bicarb 12, patient on high flow nasal cannula in ED, significantly tachypneic, increased work of breathing, respiratory rate in 40s, accessory muscle use noted. - ABG 11/08/2024 pH 7.48 [id number] pO2 77 HCO3 29, CaO2 (oxygen content of arterial blood) 10.369 - Patient denies any sick contacts, although CTA shows significant right-sided pneumonia and left base pneumonia - Bedside flu, COVID negative, cocci IgM negative, MRSA nasal screen negative, Blood cultures negative Plan: - Lung protective tidal volumes of 4 to 6 cc/kg - De-escalated Zosyn to ceftriaxone, all cultures negative till the 10 of November - Legionella still pending Gastrointestinal #Decompensated cirrhosis 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 #Transaminitis #Suspected hepatic encephalopathy #GI bleed workup #Melena Diagnostic workup: - CTA abdomen showed evidence of cirrhosis - Per the patient's family member the patient consumes 2 bottles of hard alcohol on a daily basis in addition to beer, Hepatitis panel negative - Patient remains GCS 10T after 24 hours of being off sedation, consider hepatic encephalopathy - CT chest abdomen pelvis showed cirrhosis - AST 140 ALT 132 11/08/2024, has been downtrending - MELD score of 6, 1.9% estimated 3-month mortality - Child-Pug Score: 8 - Official liver ultrasound today shows ascites - EGD 11/07/2024 showed grade 1 esophageal varices, 2+ esophageal varices not large enough for band ligation Plan: - Continue folate and thiamine - Lactulose 20 GM p.o. 3 times daily, titrate to 4-5 bowel movements - Continue octreotide gtt for 5 days started on the 11/07/2024 ends in 11/12/2024 - Continue Protonix twice daily - Hb daily monitor #Personal history of esophageal cancer, in remission Differential diagnosis: Patient is status post esophagectomy Diagnostic workup: - Patient reported self history of esophageal cancer reports completed treatment heart disease in remission - History of esophagectomy, there is suspicion of underlying dysphagia Follow-up: - Resume tube feeds - Speech eval after extubation is planned #Large right inguinal hernia #Dilated bowel loops Differential diagnosis: Incarcerated hernia. Diagnostic workup: - On physical exam hernia is reducible, low suspicion of incarceration - CTA abdomen pelvis shows large right inguinal hernia noted on imaging as well, no radiological signs of incarceration Treatment: - General Surgery consulted, no surgical intervention needed in this admission, can follow up o/p Renal/Genitourinary #Hypernatremia Differential diagnosis: Hypovolemia - Was given IV fluid in the emergency department in addition to Lasix Diagnostic workup: - Sodium is 151 11/08/2024 - Calculated free water deficit is -4.2 L - Appears intravascularly dry Plan: - Continue to monitor urine output -Free water flushes 175mL Q4H #Hypokalemia (Resolved) #Lactic acidosis, (Resolved) #High anion gap metabolic acidosis, (Resolved) Endocrine No active problems Hematology #Leukocytosis, improving Diagnostic workup: - WBC 16.5 from 18 - Consider acute phase reaction in combination with stress dose steroids Treatment: - Follow CBC #Normocytic normochromic anemia Differential diagnosis: Nutritional deficiency, in the setting of sepsis, GI bleed, low suspicion of hemolysis Diagnostic workup: - Hemoglobin 8.1 on presentation - Hemoglobin 7.8 hematocrit 24.7 11/08/2024 Treatment: - Follow CBC in a.m. - Continue folic acid and vitamin B12 #Thrombocytosis, (Resolved) Infectious Disease #Pneumonia Diagnostic workup: - Chest x-ray significant for bibasilar infiltrates Plan: -Continue ceftriaxone Integumentary No active problems DVT prophylaxis: SCDs GI prophylaxis: IV Protonix twice a day Diet: NPO Tubes: Endotracheal tube Lines: Peripheral IV, right IJ triple-lumen Code status: Full code Dispo: Sedation is off. MRI and EEG today. GCS improving. Patient was seen and discussed with my attending Dr. Kyleigh Chaudhary M.D. and my senior resident Dr. Wiliam Ramos M.D. PGY-3. Vern Fairchild D.O. PGY-1
--- NOTE | 2024-11-08 16:29 | ESPR_ITS ---
Documentation for date of: 11/08/24 Subjective Subjective Interval history: The patient was seen and examined at the bedside this morning. Continues to be intubated and mechanically ventilated, but sedation has been weaned off. Stopped pressor support. Avoid inotropic's pressor support. Significant improvement in lactic acid level to 2.5 from 16 . White count still elevated, with hemoglobin 8.4. Improvement in pH and bicarb. Creatinine improving. Liver enzymes trending down. Repeat chest x-ray revealed significant improvement in bilateral pneumonia. TTE done on 11/04/2024 revealed Normal LV size and mildly decreased LV systolic function with an EF of around 40 to 45%. EF improved from yesterday. Hypokinesis of the mid to apical anterior and anterolateral and apical segments appear improved. Apical akinesis still noted. Sigmoid septum noted with LVOT obstruction leading to moderate to severe eccentric MR directed anteriorly. Gradient measurement not accurate due to contamination with MR jet. Normal RV size and function. No pericardial effusion -Diuretics and IV fluids as needed depending on the patient's fluid status. - GDMT was started on the patient as blood pressure and other vitals were stable off pressors, but again MAP < 65 and was given 500cc bolus fluid yesterday morning with improvement in BP and mild improvement in HR . Ok to hold GDMT for now and start on metoprolol tartarate 12.5 mg bid when BP stable. -MCV is elevated at 99. Given his severe alcohol abuse patient is probably B12 as well as folate deficient. Patient would benefit from replacement of iron and B12 and folate which will eventually help anemia long-term and improve his tachycardia which would help with his LVOT obstruction and ABBI along with improvement of sepsis and alcohol withdrawal syndrome. -Recommended IV iron for iron deficiency anemia followed by vit B12 and folic acid, as his anemia has significant nutritional component. Exam Vital Signs Temp Pulse Resp BP Pulse Ox O2 Del Method O2 Flow Rate 99.5 F 104 H 30 H 112/75 97 Mechanical Ventilation 65 11/08/24 12:00 11/08/24 15:30 11/03/24 17:45 11/08/24 15:30 11/08/24 15:30 11/08/24 12:00 11/04/24 00:00 FiO2 21 11/08/24 16:00 Narrative Exam General: No acute distress, sedated, intubated and mechanically ventilated HEENT: Moist mucous membranes, oropharynx clear Neck: Supple, No masses, No JVD CVS: S1S2 Regular rate and rhythm, No murmurs, rubs or gallops Lungs: Mild wheezing throughout the lung field, rhonchi appreciated throughout the lung field, mild bibasilar crackles appreciated Abd: Soft, NT/ND, +BS, hepatomegaly appreciated Ext: No edema, warm and well perfused Skin: No rash Psych: Unable to obtain Objective Labs 11/08/24 18:34 11/08/24 05:08 Labs: Laboratory Results - last 24 hr 11/08/24 11/08/24 11/08/24 00:35 04:19 05:08 WBC 16.5 H RBC 2.44 L Hgb 8.1 L 7.8 L Hct 24.7 L 24.7 L MCV 101 H MCH 32.0 MCHC 31.6 RDW Std Deviation 68.6 H Plt Count 208 Neut % (Auto) 67 Lymph % (Auto) 11 [place] % (Auto) 16 H Eos % (Auto) 3 Baso % (Auto) 0 Neut # (Auto) 11.1 H Lymph # (Auto) 1.7 [place] # (Auto) 2.7 H Eos # (Auto) 0.5 Baso # (Auto) 0.0 Immature Gran # (Auto) 0.45 H Absolute Nucleated RBC 0.27 H Immature Gran % 3 H Nucleated RBC % 2 H PT 11.3 INR 1.0 APTT 27.6 Puncture Site Right Radial ABG pH 7.48 H ABG pCO2 38 ABG pO2 77 L ABG HCO3 29 H ABG O2 Saturation 97 ABG Base Excess 5 H FiO2 21 Sodium 151 H Potassium 4.1 D Chloride 111 H Carbon Dioxide 28.6 Anion Gap 11 BUN 19 Creatinine 0.8 Estim Creat Clear Calc 82.8 eGFR > 60 BUN/Creatinine Ratio 24 H Glucose 114 H Calculated Osmolality 303 H Calcium 7.8 L Corrected Calcium 8.6 Phosphorus 3.2 Magnesium 2.1 Total Bilirubin 0.6 AST 140 H ALT 132 H Alkaline Phosphatase 101 D Total Protein 5.4 L Albumin 3.0 L Globulin 2.4 Albumin/Globulin Ratio 1.3 ABG Interpretation ABG results: 11/03/24 11/03/24 11/03/24 11:20 14:11 17:06 ABG pH 7.35 7.34 L 7.20 L D ABG pCO2 21 L 20 L 45 D ABG pO2 193 H 82 L D 78 L ABG HCO3 12 L 11 L 16 L ABG O2 Saturation 100 H 96 91 ABG Base Excess -12 L -14 L -12 L VBG pH VBG pCO2 VBG pO2 VBG Base Excess 11/04/24 11/04/24 11/04/24 00:00 04:29 05:15 ABG pH 7.50 H D ABG pCO2 30 L D ABG pO2 109 H D ABG HCO3 23 ABG O2 Saturation 100 H ABG Base Excess 1 VBG pH 7.43 7.52 VBG pCO2 35 L 27 L VBG pO2 43 57 VBG Base Excess -1 0 11/05/24 11/06/24 11/06/24 04:49 03:40 21:45 ABG pH 7.48 H 7.41 ABG pCO2 35 43 ABG pO2 74 L D 108 D ABG HCO3 26 27 H ABG O2 Saturation 96 99 H ABG Base Excess 3 2 VBG pH 7.49 VBG pCO2 39 D VBG pO2 39 VBG Base Excess 6 H 11/07/24 11/08/24 05:59 04:19 ABG pH 7.49 H 7.48 H ABG pCO2 39 38 ABG pO2 71 L D 77 L ABG HCO3 29 H 29 H ABG O2 Saturation 96 97 ABG Base Excess 6 H 5 H VBG pH VBG pCO2 VBG pO2 VBG Base Excess Quality Measures Quality Measures sepsis Current suspected stage: sepsis Possible source: pulmonary Blood cultures ordered: completed in ED Antibiotic ordered: Yes Assessment & Plan Assessment Current Active Medications: Generic Name Dose Route Start Last Admin Trade Name Celestine PRN Reason Stop Dose Admin Acetaminophen 325 mg 11/05/24 09:48 Acetaminophen 325 Mg Tablet PO 12/03/24 15:31 Q6H PRN Fever >101.5 Aspirin 81 mg 11/04/24 09:00 11/07/24 08:03 Aspirin 81 Mg Chew GT 12/04/24 08:59 81 mg QDAY BETO Administration Atorvastatin Calcium 40 mg 11/03/24 21:00 11/07/24 21:33 Atorvastatin Calcium 20 Mg Tablet PO 12/03/24 20:59 40 mg HS BETO Administration Folic Acid 1 mg 11/04/24 09:15 11/08/24 09:32 Folic Acid Inj 1 Mg/0.2 Ml IVP 12/04/24 09:14 1 mg QDAY BETO Administration Heparin Sodium (Porcine) 5,000 unit 11/05/24 14:00 11/07/24 05:01 Heparin Sod Inj 5000 Unit/Ml Vial SC 11/19/24 13:59 5,000 unit Q8HR BETO Administration Norepinephrine/Dextrose 8 mg in 250 mls @ 5.63 mls/hr 11/03/24 14:57 11/06/24 21:45 Levophed In D5w 8mg/250ml IV 12/03/24 14:56 0 mcg/kg/min .Q24H PRN 0 mls/hr PER PROTOCOL Titration Protocol 0.05 MCG/KG/MIN Propofol 1,000 mg in 100 mls @ 1.802 mls/hr 11/06/24 08:06 Diprivan Ivpb IV 12/06/24 08:05 .Q24H PRN PER PROTOCOL Protocol 5 MCG/KG/MIN Fentanyl Citrate 2,500 mcg in 250 mls @ 2.5 mls/hr 11/06/24 08:06 Sublimaze Inj 2,500 Mcg/250 Ml Bag IV 11/11/24 08:05 .Q24H PRN PER PROTOCOL Protocol 25 MCG/HR Phenylephrine HCl 40 mg/ 100 mls @ 0.821 mls/hr 11/06/24 21:30 11/07/24 07:25 Sodium Chloride IV 12/06/24 21:29 0 mcg/kg/min .Q24H PRN 0 mls/hr Per Cardiogenic Protocol Titration Protocol 0.1 MCG/KG/MIN Ceftriaxone Sodium/Dextrose 1 gm in 50 mls @ 100 mls/hr 11/07/24 09:28 11/08/24 09:33 Rocephin/D5w 1gm Iv Premix IV 11/14/24 09:27 100 mls/hr QDAY BETO Administration Octreotide Acetate 1,000 mcg/ 102 mls @ 5.1 mls/hr 11/07/24 10:16 11/08/24 05:09 Sodium Chloride IV 11/12/24 10:15 50 mcg/hr .Q20H BETO 5.1 mls/hr Administration Protocol 50 MCG/HR Lactulose 20 gm 11/07/24 14:00 11/08/24 13:36 Lactulose Syrup 20 Gm/30 Ml Udc NG 12/07/24 13:59 20 gm TID BETO Administration Protocol Midodrine 5 mg 11/07/24 14:00 11/08/24 13:36 Midodrine 5 Mg Tablet PO 12/07/24 13:59 5 mg TID BETO Administration Ondansetron HCl 4 mg 11/03/24 15:32 Ondansetron Inj 2 Mg/Ml Inj 2 Ml IVP 12/03/24 15:31 Q6H PRN NAUSEA OR VOMITING Protocol Pantoprazole Sodium 40 mg 11/05/24 21:00 11/08/24 09:33 Pantoprazole Inj 40 Mg Vial IVP 12/05/24 20:59 40 mg BID BETO Administration Rifaximin 550 mg 11/08/24 13:45 11/08/24 13:36 Rifaximin 550 Mg Tablet PO 11/15/24 13:44 550 mg BID BTEO Administration Sennosides 1 tab 11/04/24 09:00 11/08/24 09:34 Senna Tablet PO 12/04/24 08:59 1 tab QDAY BETO Administration Protocol Sodium Chloride 3 ml 11/03/24 10:58 Sodium Chloride Rt Anastacia 0.9% 3 Ml Nebu INH 12/03/24 10:57 PRN PRN SOLN Thiamine HCl 200 mg 11/04/24 09:15 11/08/24 09:32 Thiamine Inj 100 Mg/Ml Vial 2 Ml IVP 11/09/24 09:14 200 mg BID BETO Administration Plan The patient is a 49-year-old male with significant past medical history of esophageal cancer currently on remission, and hypertension presented to ED with chief complaint of acute SOB and generalized weakness is currently being treated for septic shock, Takotsubo syndrome complicated by sigmoid interventricular septum further leading to tachycardia and NSTEMI type II. #Abnormal EKG, likely 2/2 #Takotsubo syndrome vs LAD, complicated by #Sigmoid interventricular septum, possibly leading to #Moderate to severe eccentric MR, leading to #Moderate to severe PAH #HFrEF with apical akinesis EKG was significant for sinus tachycardia with deep symmetric T wave inversion in lateral leads V4 to V6, and inverted T waves in lead I and aVL. TTE on 11/03/2024 revealed: Normal LV size and moderate LV systolic dysfunction with an EF of 35 to 40%. Apical akinesis with hypokinesis of the mid to apical anterior, anterolateral and apical septal segments indicating possible Takotsubo syndrome versus LAD involvement. RV Normal in size and function. 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 Severe LA dilatation. Trace AI Moderate TR with mild RA dilatation. No Pericardial Effusion. IVC not well- visualized. Repeat limited TTE on 11/04/2024 revealed: Normal LV size and mildly decreased LV systolic function with an EF of around 40 to 45%. EF improved from yesterday. Hypokinesis of the mid to apical anterior and anterolateral and apical segments appear improved. Apical akinesis still noted. Sigmoid septum noted with LVOT obstruction leading to moderate to severe eccentric MR directed anteriorly. Gradient measurement not accurate due to contamination with MR jet. Normal RV size and function. No pericardial effusion -As the patient has sigmoid interventricular septum, and recent stressor likely leading to Takotsubo syndrome, leading to tachycardia of upper left ventricular, which is further pulling in mitral valve leading to MR resulting with moderate to severe PAH. -Volume status is critical, to maintain euvolemia, as hypovolemia will cause decrease venous return, resulting as compensatory tachycardia of upper left ventricle leading to further MR, with increased pulmonary arterial pressure and shunt reversal. On the other hand, if there is hypervolemia leading to increased venous return, will complicate MR and increased pulmonary artery pressure. -Diuretics and IV fluids as needed depending on the patient's fluid status. -Ok to hold GDMT for now and start on metoprolol tartarate 12.5 mg bid when BP stable. #Anemia Likely multifactorial in the setting of nutritional deficiency along with iron, vitamin B12 and folic acid deficiency MCV is elevated at 99. Given his severe alcohol abuse patient is probably B12 as well as folate deficient. Patient would benefit from replacement of iron and B12 and folate which will eventually help anemia long-term and improve his tachycardia which would help with his LVOT obstruction and ABBI along with improvement of sepsis and alcohol withdrawal syndrome - Recommended IV iron infusion, vitamin B12 and folic acid #Acute hypoxic respiratory failure, improved #Septic shock, improved #Aspiration pneumonia, improving #Severe lactic acidosis, imporved Currently, the patient is intubated but saturating on 21% FiO2. Initially, the patient presented with blood pressure of 81/51, pulse 127, RR 40, and white count 33.8 meeting 3/4 SIRS criteria, chest x-ray significant for right sided middle and lower lobe pneumonia, CT chest abdomen and pelvis revealing right middle and lower lobe pneumonia, and left lower lobe pneumonia, and lactic acid level of 16, with endorgan failure as acute hypoxic respiratory failure requiring intubation. Patient received 2.5 L of bolus IV fluid - Continue with aggressive IV antibiotics - Blood and urine culture sent, negative so far. - IgM for coccidiomycosis, negative - Pressor support, and recommended to avoid inotropes in the setting of sigmoid interventricular septum complicating Takotsubo syndrome. #NSTEMI type II, improved Likely multifactorial secondary to septic shock, Takotsubo syndrome, sigmoid interventricular septum leading to MR. No significant risk factor for STEMI, except for hypertension, as patient denies smoking or illicit drug use, and lipid panel was significant for LDL 39 and HDL 53. EKG unremarkable for STEMI - Heparin drip stopped - May consider cardiac catheterization after the patient is stable - Aspirin 81 Mg daily - Atorvastatin 40 Mg daily at night Thank you for cardiology consultation. We really appreciate for the opportunity to participate in this patient care. Cardiology team will continue to follow-up on this patient. The patient's management plan was discussed with my attending physician MD Ventura Montes MD, PGY3 Attending Provider Attestation/Addendum I have personally seen and examined the patient separately on the above date of service and discussed the plan of care with the resident. I reviewed the resident Dr. Ventuar Myers consultation progress note and agree with the resident findings and plan in the note above and have also edited the documentation to reflect my findings and plan. Colin Brandt M.D. Interventional Cardiology
[2024-11-08] MEDS: FERRIC SOD GLUC INJ 125 MG in SODIUM CHLORIDE 0.9% 100 ML 110 MG IV (17:57)
--- NOTE | 2024-11-08 18:05 | PD.IMPROG ---
Documentation for date of: 11/08/24 Subjective Subjective Interval history: Upper endoscopy showed esophageal varices not large for band ligation hemorrhagic gastritis Patient is off the Levophed Exam Vital Signs Temp Pulse Resp BP Pulse Ox O2 Del Method O2 Flow Rate 99.5 F 109 H 24 H 118/78 96 Mechanical Ventilation 65 11/08/24 17:00 11/08/24 17:00 11/08/24 16:00 11/08/24 17:00 11/08/24 17:00 11/08/24 16:00 11/04/24 00:00 FiO2 21 11/08/24 16:00 Objective Labs 11/08/24 05:08 11/08/24 05:08 Labs: Laboratory Results - last 24 hr 11/08/24 11/08/24 11/08/24 00:35 04:19 05:08 WBC 16.5 H RBC 2.44 L Hgb 8.1 L 7.8 L Hct 24.7 L 24.7 L MCV 101 H MCH 32.0 MCHC 31.6 RDW Std Deviation 68.6 H Plt Count 208 Neut % (Auto) 67 Lymph % (Auto) 11 [place] % (Auto) 16 H Eos % (Auto) 3 Baso % (Auto) 0 Neut # (Auto) 11.1 H Lymph # (Auto) 1.7 [place] # (Auto) 2.7 H Eos # (Auto) 0.5 Baso # (Auto) 0.0 Immature Gran # (Auto) 0.45 H Absolute Nucleated RBC 0.27 H Immature Gran % 3 H Nucleated RBC % 2 H PT 11.3 INR 1.0 APTT 27.6 Puncture Site Right Radial ABG pH 7.48 H ABG pCO2 38 ABG pO2 77 L ABG HCO3 29 H ABG O2 Saturation 97 ABG Base Excess 5 H FiO2 21 Sodium 151 H Potassium 4.1 D Chloride 111 H Carbon Dioxide 28.6 Anion Gap 11 BUN 19 Creatinine 0.8 Estim Creat Clear Calc 82.8 eGFR > 60 BUN/Creatinine Ratio 24 H Glucose 114 H Calculated Osmolality 303 H Calcium 7.8 L Corrected Calcium 8.6 Phosphorus 3.2 Magnesium 2.1 Total Bilirubin 0.6 AST 140 H ALT 132 H Alkaline Phosphatase 101 D Total Protein 5.4 L Albumin 3.0 L Globulin 2.4 Albumin/Globulin Ratio 1.3 Impressions Impression: Hemorrhagic gastritis, hypertensive portal gastropathy 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 Continue octreotide ABG Interpretation ABG results: 11/03/24 11/03/24 11/03/24 11:20 14:11 17:06 ABG pH 7.35 7.34 L 7.20 L D ABG pCO2 21 L 20 L 45 D ABG pO2 193 H 82 L D 78 L ABG HCO3 12 L 11 L 16 L ABG O2 Saturation 100 H 96 91 ABG Base Excess -12 L -14 L -12 L VBG pH VBG pCO2 VBG pO2 VBG Base Excess 11/04/24 11/04/24 11/04/24 00:00 04:29 05:15 ABG pH 7.50 H D ABG pCO2 30 L D ABG pO2 109 H D ABG HCO3 23 ABG O2 Saturation 100 H ABG Base Excess 1 VBG pH 7.43 7.52 VBG pCO2 35 L 27 L VBG pO2 43 57 VBG Base Excess -1 0 11/05/24 11/06/24 11/06/24 04:49 03:40 21:45 ABG pH 7.48 H 7.41 ABG pCO2 35 43 ABG pO2 74 L D 108 D ABG HCO3 26 27 H ABG O2 Saturation 96 99 H ABG Base Excess 3 2 VBG pH 7.49 VBG pCO2 39 D VBG pO2 39 VBG Base Excess 6 H 11/07/24 11/08/24 05:59 04:19 ABG pH 7.49 H 7.48 H ABG pCO2 39 38 ABG pO2 71 L D 77 L ABG HCO3 29 H 29 H ABG O2 Saturation 96 97 ABG Base Excess 6 H 5 H VBG pH VBG pCO2 VBG pO2 VBG Base Excess Assessment & Plan A&P Narrative 49 years old male with acute respiratory failure bilateral pneumonia acute coronary syndrome mechanically ventilated with previous history of Esophageal carcinoma status posttreatment and supposedly in remission Difficulty placing the NGT only OGT in Plan Will attempt to place a 14 [place] NGT either via nasogastric approach or oral approach Will follow the patient # Transaminitis most likely due to hypoxic hepatitis Thank you very much for the opportunity to participate in the care of this patient Time Spent With Patient Time: Total time spent is greater than 50% in coordination of care (as documented) at patient's floor/unit and/or counseling patient:
[2024-11-08] MEDS: ALBUTEROL/IPRATROPIUM (Duoneb) RT SOL 3 ML NEBU INH (18:21)
[2024-11-08 18:52] LABS: Hematocrit 25.3 % (41.0-53.0)
[2024-11-08 18:56] LABS: Hemoglobin 8.2 g/dL (13.5-16.0)
[2024-11-08 21:08] LABS: Folate 13.89 ng/mL (>5.38); Vitamin B12 699 pg/mL (211-911)
[2024-11-08] MEDS: ATORVASTATIN CALCIUM 20 MG TABLET 40 MG PO (21:33)
[2024-11-09] VITALS (36 sets, daily range): BP systolic 93–133; BP diastolic 60–91; PULSE 98–120; RESP 17–33; TEMP 36.6–37.9; O2SAT 87–100; BMI 23.3
--- NOTE | 2024-11-09 | XR_ITS ---
Examination: MRI brain without intravenous contrast. Date and time of exam: November 09, 2024 1304 hours INDICATIONS: Diagnosis esophageal cancer, tachypnea generalized weakness severe shortness of breath 2 weeks Technique: Multiple axial and sagittal images of the brain obtained. Siemens high-resolution 1.5 [employer] short bore scanners utilized. Sagittal sections, T1-weighted, TR 500, TE 14, are performed. Axial sections proton-density and T2-weighted have been obtained. Inversion recovery axial images, TR 9, 260, TE 111, TI 2500. Diffusion weighted images, axial sections, TR 4800, TE 128, B value 1000 Axial sections, ADC map, TR 4800, TE 128 Findings: Enlargement of the sella turcica is not present. The optic chiasm and infundibular are not remarkable. Prepontine and interpeduncular cisterns are not enlarged. There is no localized enlargement of the medulla or glenn. Fourth ventricle and cerebellar tonsils appear normal in position. No subacute area of hemorrhage density is seen. Mass in the cerebellopontine angle region is not evident. Globes symmetrical. Orbital musculature including medial lateral rectus muscles do not exhibit abnormality. Diffusion-weighted images demonstrate no focus of restrictive diffusion. Increased white matter signal evident, scattered punctate foci increased signal in the frontal parietal white matter Mass effect upon the ventricular system is not identified. Impression: Punctate foci increased signal in the frontal parietal white matter, demyelinating disease pattern Repeat MRI study postcontrast would best assess for cerebral cerebellar metastases
[2024-11-09] MEDS: ALBUTEROL/IPRATROPIUM (Duoneb) RT SOL 3 ML NEBU INH ×2 (00:33→19:21)
[2024-11-09] MEDS: OCTREOTIDE ACET INJ 1,000 MCG in SODIUM CHLORIDE 0.9% 100 ML 5.1 MCG IV ×2 (02:58→19:01)
[2024-11-09 04:16] LABS: Base Excess 3 (-3-3); HCO3 27 mEq/L (20-26); Inspired Oxygen, FIO2 21 %; O2 Saturation 93 % (91-98); PCO2 40 mmHg (32.0-48.0); PO2 63 mmHg (83-108); pH, Arterial 7.44 (7.35-7.45)
[2024-11-09 04:28] LABS: Allen Test Performed/OK; Puncture Site Right Radial
[2024-11-09] MEDS: MIDODRINE 5 MG TABLET PO ×3 (05:13→21:21)
[2024-11-09] MEDS: LACTULOSE SYRUP 20 GM/30 ML UDC NG ×2 (05:13→21:20)
[2024-11-09 05:48] LABS: Basophils # (Auto) 0.0 Thou/mm3 (0.0-0.2); Basophils % (Auto) 0 % (0-2.5); Eosinophils # (Auto) 0.5 Thou/mm3 (0.0-0.5); Eosinophils % (Auto) 3 % (0-10); Hematocrit 26.4 % (41.0-53.0); Immature Granulocytes Auto 0.31 Thou/mm3 (0.00-0.00); Lymphocytes # (Auto) 1.1 Thou/mm3 (1.0-4.8); Lymphocytes % (Auto) 6 % (10-50); Mean Corpuscular HGB Conc 31.4 g/dl (31.0-37.0); Mean Corpuscular Hemoglobin 31.1 pg (25.0-35.0); Mean Corpuscular Volume 99 fL (80-100); Monocytes # (Auto) 2.4 Thou/mm3 (0.0-0.8); Monocytes % (Auto) 13 % (0-12); Neutrophils # (Auto) 14.6 Thou/mm3 (1.8-7.7); Neutrophils % (Auto) 77 % (37-80); Nucleated Red Blood Cell # 0.23 Thou/mm3 (0.00-0.00); Nucleated Red Blood Cell % 1 /100 WBC (0); Platelet Count 272 Thou/mm3 (140-440); RDW Standard Deviation 67.2 fL (35.1-43.9); Red Blood Count 2.67 Miln/mm3 (4.50-5.90); White Blood Count 19.0 Thou/mm3 (3.8-10.6)
[2024-11-09 05:53] LABS: Hemoglobin 8.3 g/dL (13.5-16.0)
[2024-11-09 05:59] LABS: INR 1.1 (0.9-1.3); Partial Thromboplastin Time 30.0 Seconds (22.0-36.0); Prothrombin Time 11.5 Seconds (9.0-12.2)
[2024-11-09 06:04] LABS: Alanine Aminotransferase 114 U/L (10-49); Albumin, Serum 3.2 gm/dL (3.5-5.0); Albumin/Globulin Ratio 1.3 (1.2-2.2); Alkaline Phosphatase 102 U/L (46-116); Anion Gap 10 (7-16); Aspartate Amino Transferase 103 U/L (0-34); BUN/Creatinine Ratio 21 Ratio (12-20); Bilirubin,Total 0.6 mg/dL (0.3-1.2); Blood Urea Nitrogen 17 mg/dL (9-23); Calcium 8.0 mg/dL (8.3-10.6); Calcium (Corrected) 8.6 mg/dL (8.5-10.1); Carbon Dioxide 27.3 mMol/L (20.0-31.0); Chloride 112 mMol/L (98-107); Creatinine (Component) 0.8 mg/dL (0.6-1.3); Estimated Creatinine Clearance 86.5 mL/min (>60); Globulin 2.5 gm/dL (2.3-3.5); Glucose 108 mg/dL (74-106); Magnesium 2.0 mg/dL (1.6-2.6); Osmolality,Calculated 298 (275-295); Phosphorous 3.1 mg/dL (2.4-5.1); Potassium 3.9 mMol/L (3.4-5.1); Sodium 149 mMol/L (136-145); Total Protein 5.7 gm/dL (5.7-8.2); eGFR > 60 See Note
--- NOTE | 2024-11-09 07:31 | XR_ITS ---
Examination: AP chest single view Technique one AP portable upright chest single view Date and time: November 09, 2024, 0743 hours Comparison November 08, 2024 INDICATIONS: Hypoxic respiratory failure postintubation FINDINGS: Normal heart size. Prominent vascular congestion. Pneumonia left base Endotracheal tube tip 25 mm above the go. Orogastric tube in the stomach Right internal jugular central line tip right atrium IMPRESSION: Pneumonia left base Prominent vascular congestion.
--- NOTE | 2024-11-09 09:48 | PD.INTPROG ---
Documentation for date of: 11/09/24 Subjective Subjective Interval history: This is a 49-year-old male admitted to the ICU on 03 November. He was admitted with acute respiratory failure and significant metabolic acidosis along with shock. It was originally unclear if this was cardiogenic versus septic shock. The patient bedside echo did show a Takotsubo type cardiomyopathy. It was later discovered the patient also had a history of alcohol abuse. He was also started on thiamine and scheduled Librium as well as phenobarb. His shock is resolved and he is off of pressors. He remains intubated and on minimal sedation. His fentanyl was held this morning. He has a GCS of about 6T. Overnight he has been afebrile with a good urinary output. He is net +3 L from his hospital stay thus far. He had a echocardiogram done on 03 November which showed a decreased EF of 35 to 40% with apical akinesia moderate pulmonary hypertension with a right ventricular systolic pressure 65 and ABBI was noted on echo. 11/07- overnight pt dropped his pressures again requiring vasopressor support. he was transitioned from levo to shira. he was weened off this AM. He has been off all sedation for 24hrs and still has a GCS of 7T. has had good UOP and yesterday received low dose carvedilol, lisinopril and lasix ? if this affected his pressures v tachycardia and obstruction of LVOT, has had several episodes of black stools 11/08-no acute overnight events, afebrile, good urinary output today patient still remains encephalopathic with profound weakness 11/09- no acute overnight events, GCS 10 T however profound weakness and ? hypoactive delerium, overnight had frothy pink sputum , low grade temp over last 24hrs with TM 100.2, adequate UOP with pt net pos over last 24hrs Critical Care Note Critical care time (min.): 40 Exam Vital Signs Temp Pulse Resp BP Pulse Ox O2 Del Method O2 Flow Rate 100.2 F 112 H 27 H 102/68 96 Mechanical Ventilation 65 11/09/24 07:00 11/09/24 07:00 11/09/24 07:00 11/09/24 07:00 11/09/24 07:00 11/09/24 07:00 11/04/24 00:00 FiO2 30 11/09/24 07:00 Narrative Exam Gen- NAD, chronically ill appearing, musc wasting, thin and frail, cachectic in appearence, GCS 10 T 6M, V 1, E3 HEENT- NC/AT, mucosa hydrated, sclera anicteric, pupils equal and reactive, ET tube and OG tube in place Chest-few crackles posterior base, heart regular rhythmic, pronounced murmur auscultated, chest wall deformity, no increased work of breathing Abdomen-bowel sounds present, soft, nontender Extremities-no edema lower extremities, pulses palpable, no clubbing or mottling, weak and unable to move bilateral upper extremities, able to follow commands with lower extremities Vent PSV Physical Exam Completion Physical Exam Complete?: Yes Objective - Medical Insurance Clerk Labs 11/09/24 05:00 11/09/24 05:00 Labs: Laboratory Results - last 24 hr 11/08/24 11/08/24 11/09/24 05:08 18:34 04:11 WBC RBC Hgb 8.2 L Hct 25.3 L MCV MCH MCHC RDW Std Deviation Plt Count Neut % (Auto) Lymph % (Auto) [place] % (Auto) Eos % (Auto) Baso % (Auto) Neut # (Auto) Lymph # (Auto) [place] # (Auto) Eos # (Auto) Baso # (Auto) Immature Gran # (Auto) Absolute Nucleated RBC Immature Gran % Nucleated RBC % PT INR APTT Puncture Site Right Radial ABG pH 7.44 ABG pCO2 40 ABG pO2 63 L ABG HCO3 27 H ABG O2 Saturation 93 ABG Base Excess 3 FiO2 21 Sodium Potassium Chloride Carbon Dioxide Anion Gap BUN Creatinine Estim Creat Clear Calc eGFR BUN/Creatinine Ratio Glucose Calculated Osmolality Calcium Corrected Calcium Phosphorus Magnesium Total Bilirubin AST ALT Alkaline Phosphatase Total Protein Albumin Globulin Albumin/Globulin Ratio Vitamin B12 699 Folate 13.89 11/09/24 05:00 WBC 19.0 H RBC 2.67 L Hgb 8.3 L Hct 26.4 L MCV 99 MCH 31.1 MCHC 31.4 RDW Std Deviation 67.2 H Plt Count 272 D Neut % (Auto) 77 Lymph % (Auto) 6 L [place] % (Auto) 13 H Eos % (Auto) 3 Baso % (Auto) 0 Neut # (Auto) 14.6 H Lymph # (Auto) 1.1 [place] # (Auto) 2.4 H Eos # (Auto) 0.5 Baso # (Auto) 0.0 Immature Gran # (Auto) 0.31 H Absolute Nucleated RBC 0.23 H Immature Gran % 2 H Nucleated RBC % 1 H PT 11.5 INR 1.1 APTT 30.0 Puncture Site ABG pH ABG pCO2 ABG pO2 ABG HCO3 ABG O2 Saturation ABG Base Excess FiO2 Sodium 149 H Potassium 3.9 Chloride 112 H Carbon Dioxide 27.3 Anion Gap 10 BUN 17 Creatinine 0.8 Estim Creat Clear Calc 86.5 eGFR > 60 BUN/Creatinine Ratio 21 H Glucose 108 H Calculated Osmolality 298 H Calcium 8.0 L Corrected Calcium 8.6 Phosphorus 3.1 Magnesium 2.0 Total Bilirubin 0.6 AST 103 H ALT 114 H Alkaline Phosphatase 102 Total Protein 5.7 Albumin 3.2 L Globulin 2.5 Albumin/Globulin Ratio 1.3 Vitamin B12 Folate Assessment & Plan Additional Assessment Additional Assessment: In brief this is a 49yo M admitted for shock and resp failure to the ICU a/p MACHINE I COREMAKER ETOH withdrawal- on thiamine and folate - not in active withdrawal at this time Encephalopathy- unclear etiology, slightly improved however still lethargic - off all sedation - HCT negative - ? hepatic encephalopathy given ongoing black stools -> lactulose - Given significant change from arrival and inability to move upper extremities will obtain MRI as well as an EEG - Once results are obtained may require neuro eval - MRI still pending CV HFrEF- started on lasix, BB, ACEI -> all held today given drop in BP - good UOP - noted to have cardiomyopathy with ABBI physiology - will need further eval with cards once improved -Aspirin resumed - start metoprolol 12.5 today and trial lasix - on midodrine Shock- resolved Resp Acute resp failure- gen weakness - ween as able - on minimal FiO2 - fu on ABG and CXR - on PSV, check a NIF Renal HyperNa- provide free water - Started on 175 cc of free water every 4 hours via the NG tube - decrease to 125 Lactic acidosis- improved HypoCa- replete IV Metabolic Alkalosis- resolved HypoK-resolved today GI ETOH hepatitis- fu on repeat labs - slow trend to improvement - Continues to improve - Liver ultrasound did not show any significant pathology - stable Hypoalbuminemia- 2/2 cirrhosis GI proph- PPI ? GIB- black stools noted and placed on BID PPI - GI consulted on arrival due to difficulty passing NGT and h/o esophageal ca - Underwent EGD yesterday with GI, no active bleeding noted, small esophageal varices which were unable to be banded - started on octreotide which GI recommends to continue for 5 days Endo stable Heme Leukocytosis- reactive v infectious -Trending down today Anemia- no active bleed noted however there is a suspicion for slow GI ooze - no indication for transfusion at this time - no significant change -Transfuse if hemoglobin drops below 7 Thrombocytosis- likely reactive in nature - improved DVT proph- heparin-> hold for today ID PNA- on zosyn - cx neg so will transition to ceftri - complete 7 days case d/w ICU team labs, imaging, records reviewed ~ 40ccmin required for eval, exam, review, intervention, discussion and formulation of POC for this critically ill pt with resp failure on MV at high risk for further and ongoing decompensation Provider Notation Provider Notation: Although this document has been carefully reviewed, there may still be some phonetic and other typographical errors. These errors are purely grammatical due to imperfections in the software program and should not be construed in any way to compromise the substance of the patient's medical care during this visit. Thank you for the opportunity and privilege in assisting you with this patient's care and management.
[2024-11-09] MEDS: FERRIC SOD GLUC INJ 125 MG in SODIUM CHLORIDE 0.9% 100 ML 110 MG IV (09:57)
[2024-11-09] MEDS: cefTRIAXone/D5w 1gm IV premix 1 GM/50 ML BAG IV (09:58)
[2024-11-09] MEDS: THIAMINE INJ 100 MG/ML VIAL 2 ML 200 MG IVP (09:58)
[2024-11-09] MEDS: ASPIRIN 81 MG CHEW GT (09:58)
--- NOTE | 2024-11-09 14:17 | ESPR_ITS ---
Documentation for date of: 11/09/24 Subjective Subjective Interval history: The patient was seen and examined at the bedside this morning. Continues to be intubated and mechanically ventilated, but sedation has been weaned off. Stopped pressor support. Avoid inotropic's pressor support. Significant improvement in lactic acid level to 2.5 from 16 . White count still elevated, with hemoglobin 8.4. Improvement in pH and bicarb. Creatinine improving. Liver enzymes trending down. Repeat chest x-ray revealed significant improvement in bilateral pneumonia. TTE done on 11/04/2024 revealed Normal LV size and mildly decreased LV systolic function with an EF of around 40 to 45%. EF improved from yesterday. Hypokinesis of the mid to apical anterior and anterolateral and apical segments appear improved. Apical akinesis still noted. Sigmoid septum noted with LVOT obstruction leading to moderate to severe eccentric MR directed anteriorly. Gradient measurement not accurate due to contamination with MR jet. Normal RV size and function. No pericardial effusion -Diuretics and IV fluids as needed depending on the patient's fluid status. - GDMT was started on the patient as blood pressure and other vitals were stable off pressors, but again MAP < 65 and was given 500cc bolus fluid yesterday morning with improvement in BP and mild improvement in HR . Ok to hold GDMT for now and start on metoprolol tartarate 12.5 mg bid when BP stable. -MCV is elevated at 99. Given his severe alcohol abuse patient is probably B12 as well as folate deficient. Patient would benefit from replacement of iron and B12 and folate which will eventually help anemia long-term and improve his tachycardia which would help with his LVOT obstruction and ABBI along with improvement of sepsis and alcohol withdrawal syndrome. EGD done on 11/07/24 revealed 2+ variceal dilatation with hypertensive portal gastropathy. Recommended to continue octreotide drip for 5 days. MRI on 11/09/2024 revealed Punctate foci increased signal in the frontal parietal white matter, demyelinating disease pattern. -Recommended IV iron for iron deficiency anemia followed by vit B12 and folic acid, as his anemia has significant nutritional component. Exam Vital Signs Temp Pulse Resp BP Pulse Ox O2 Del Method O2 Flow Rate 98.5 F 117 H 27 H 114/75 97 Mechanical Ventilation 65 11/09/24 08:00 11/09/24 13:00 11/09/24 07:00 11/09/24 13:00 11/09/24 13:00 11/09/24 08:00 11/04/24 00:00 FiO2 30 11/09/24 12:00 Narrative Exam General: No acute distress, sedated, intubated and mechanically ventilated, responding well to commands HEENT: Moist mucous membranes, oropharynx clear Neck: Supple, No masses, No JVD CVS: S1S2 Regular rate and rhythm, No murmurs, rubs or gallops Lungs: Mild wheezing throughout the lung field, rhonchi appreciated throughout the lung field, mild bibasilar crackles appreciated Abd: Soft, NT/ND, +BS, hepatomegaly appreciated Ext: No edema, warm and well perfused Skin: No rash Psych: Unable to obtain Objective Labs 11/10/24 04:22 11/10/24 04:22 Labs: Laboratory Results - last 24 hr 11/04/24 11/08/24 11/08/24 05:15 05:08 18:34 WBC RBC Hgb 8.2 L Hct 25.3 L MCV MCH MCHC RDW Std Deviation Plt Count Neut % (Auto) Lymph % (Auto) [place] % (Auto) Eos % (Auto) Baso % (Auto) Neut # (Auto) Lymph # (Auto) [place] # (Auto) Eos # (Auto) Baso # (Auto) Immature Gran # (Auto) Absolute Nucleated RBC Immature Gran % Nucleated RBC % PT INR APTT Puncture Site ABG pH ABG pCO2 ABG pO2 ABG HCO3 ABG O2 Saturation ABG Base Excess FiO2 Sodium Potassium Chloride Carbon Dioxide Anion Gap BUN Creatinine Estim Creat Clear Calc eGFR BUN/Creatinine Ratio Glucose Calculated Osmolality Calcium Corrected Calcium Phosphorus Magnesium Total Bilirubin AST ALT Alkaline Phosphatase Total Protein Albumin Globulin Albumin/Globulin Ratio Vitamin B12 699 Folate 13.89 Misc Test Result See Sep Rpt 11/09/24 11/09/24 04:11 05:00 WBC 19.0 H RBC 2.67 L Hgb 8.3 L Hct 26.4 L MCV 99 MCH 31.1 MCHC 31.4 RDW Std Deviation 67.2 H Plt Count 272 D Neut % (Auto) 77 Lymph % (Auto) 6 L [place] % (Auto) 13 H Eos % (Auto) 3 Baso % (Auto) 0 Neut # (Auto) 14.6 H Lymph # (Auto) 1.1 [place] # (Auto) 2.4 H Eos # (Auto) 0.5 Baso # (Auto) 0.0 Immature Gran # (Auto) 0.31 H Absolute Nucleated RBC 0.23 H Immature Gran % 2 H Nucleated RBC % 1 H PT 11.5 INR 1.1 APTT 30.0 Puncture Site Right Radial ABG pH 7.44 ABG pCO2 40 ABG pO2 63 L ABG HCO3 27 H ABG O2 Saturation 93 ABG Base Excess 3 FiO2 21 Sodium 149 H Potassium 3.9 Chloride 112 H Carbon Dioxide 27.3 Anion Gap 10 BUN 17 Creatinine 0.8 Estim Creat Clear Calc 86.5 eGFR > 60 BUN/Creatinine Ratio 21 H Glucose 108 H Calculated Osmolality 298 H Calcium 8.0 L Corrected Calcium 8.6 Phosphorus 3.1 Magnesium 2.0 Total Bilirubin 0.6 AST 103 H ALT 114 H Alkaline Phosphatase 102 Total Protein 5.7 Albumin 3.2 L Globulin 2.5 Albumin/Globulin Ratio 1.3 Vitamin B12 Folate Misc Test Result ABG Interpretation ABG results: 11/03/24 11/03/24 11/03/24 11:20 14:11 17:06 ABG pH 7.35 7.34 L 7.20 L D ABG pCO2 21 L 20 L 45 D ABG pO2 193 H 82 L D 78 L ABG HCO3 12 L 11 L 16 L ABG O2 Saturation 100 H 96 91 ABG Base Excess -12 L -14 L -12 L VBG pH VBG pCO2 VBG pO2 VBG Base Excess 11/04/24 11/04/24 11/04/24 00:00 04:29 05:15 ABG pH 7.50 H D ABG pCO2 30 L D ABG pO2 109 H D ABG HCO3 23 ABG O2 Saturation 100 H ABG Base Excess 1 VBG pH 7.43 7.52 VBG pCO2 35 L 27 L VBG pO2 43 57 VBG Base Excess -1 0 11/05/24 11/06/24 11/06/24 04:49 03:40 21:45 ABG pH 7.48 H 7.41 ABG pCO2 35 43 ABG pO2 74 L D 108 D ABG HCO3 26 27 H ABG O2 Saturation 96 99 H ABG Base Excess 3 2 VBG pH 7.49 VBG pCO2 39 D VBG pO2 39 VBG Base Excess 6 H 11/07/24 11/08/24 11/09/24 05:59 04:19 04:11 ABG pH 7.49 H 7.48 H 7.44 ABG pCO2 39 38 40 ABG pO2 71 L D 77 L 63 L ABG HCO3 29 H 29 H 27 H ABG O2 Saturation 96 97 93 ABG Base Excess 6 H 5 H 3 VBG pH VBG pCO2 VBG pO2 VBG Base Excess Quality Measures Quality Measures sepsis Current suspected stage: sepsis Possible source: pulmonary Blood cultures ordered: completed in ED Antibiotic ordered: Yes Assessment & Plan Assessment Current Active Medications: Generic Name Dose Route Start Last Admin Trade Name Freq PRN Reason Stop Dose Admin Acetaminophen 325 mg 11/05/24 09:48 Acetaminophen 325 Mg Tablet PO 12/03/24 15:31 Q6H PRN Fever >101.5 Albuterol/Ipratropium 3 ml 11/08/24 18:09 11/09/24 00:33 Albuterol/Ipratropium (Duoneb) Rt Anastacia 3 Ml Nebu INH 12/08/24 18:59 3 ml Q4HRRT PRN Administration wheezing Aspirin 81 mg 11/04/24 09:00 11/09/24 09:58 Aspirin 81 Mg Chew GT 12/04/24 08:59 81 mg QDAY BETO Administration Atorvastatin Calcium 40 mg 11/03/24 21:00 11/08/24 21:33 Atorvastatin Calcium 20 Mg Tablet PO 12/03/24 20:59 40 mg HS BETO Administration Folic Acid 1 mg 11/04/24 09:15 11/09/24 11:56 Folic Acid Inj 1 Mg/0.2 Ml IVP 12/04/24 09:14 Not Given QDAY BETO Heparin Sodium (Porcine) 5,000 unit 11/05/24 14:00 11/07/24 05:01 Heparin Sod Inj 5000 Unit/Ml Vial SC 11/19/24 13:59 5,000 unit Q8HR BETO Administration Norepinephrine/Dextrose 8 mg in 250 mls @ 5.63 mls/hr 11/03/24 14:57 11/06/24 21:45 Levophed In D5w 8mg/250ml IV 12/03/24 14:56 0 mcg/kg/min .Q24H PRN 0 mls/hr PER PROTOCOL Titration Protocol 0.05 MCG/KG/MIN Propofol 1,000 mg in 100 mls @ 1.802 mls/hr 11/06/24 08:06 Diprivan Ivpb IV 12/06/24 08:05 .Q24H PRN PER PROTOCOL Protocol 5 MCG/KG/MIN Fentanyl Citrate 2,500 mcg in 250 mls @ 2.5 mls/hr 11/06/24 08:06 Sublimaze Inj 2,500 Mcg/250 Ml Bag IV 11/11/24 08:05 .Q24H PRN PER PROTOCOL Protocol 25 MCG/HR Phenylephrine HCl 40 mg/ 100 mls @ 0.821 mls/hr 11/06/24 21:30 11/07/24 07:25 Sodium Chloride IV 12/06/24 21:29 0 mcg/kg/min .Q24H PRN 0 mls/hr Per Cardiogenic Protocol Titration Protocol 0.1 MCG/KG/MIN Ceftriaxone Sodium/Dextrose 1 gm in 50 mls @ 100 mls/hr 11/07/24 09:28 11/09/24 09:58 Rocephin/D5w 1gm Iv Premix IV 11/14/24 09:27 100 mls/hr QDAY BETO Administration Octreotide Acetate 1,000 mcg/ 102 mls @ 5.1 mls/hr 11/07/24 10:16 11/09/24 02:58 Sodium Chloride IV 11/12/24 10:15 50 mcg/hr .Q20H BETO 5.1 mls/hr Administration Protocol 50 MCG/HR Ferric Sodium Gluconate 125 mg 110 mls @ 110 mls/hr 11/08/24 17:15 11/09/24 09:57 / Sodium Chloride IV 12/08/24 17:14 110 mls/hr QDAY BETO Administration Lactulose 20 gm 11/07/24 14:00 11/09/24 05:13 Lactulose Syrup 20 Gm/30 Ml Udc NG 12/07/24 13:59 20 gm TID BETO Administration Protocol Midodrine 5 mg 11/07/24 14:00 11/09/24 05:13 Midodrine 5 Mg Tablet PO 12/07/24 13:59 5 mg TID BETO Administration Ondansetron HCl 4 mg 11/03/24 15:32 Ondansetron Inj 2 Mg/Ml Inj 2 Ml IVP 12/03/24 15:31 Q6H PRN NAUSEA OR VOMITING Protocol Pantoprazole Sodium 40 mg 11/05/24 21:00 11/09/24 09:58 Pantoprazole Inj 40 Mg Vial IVP 12/05/24 20:59 40 mg BID BETO Administration Rifaximin 550 mg 11/08/24 13:45 11/09/24 09:58 Rifaximin 550 Mg Tablet PO 11/15/24 13:44 550 mg BID BETO Administration Sennosides 1 tab 11/04/24 09:00 11/09/24 09:58 Senna Tablet PO 12/04/24 08:59 1 tab QDAY BETO Administration Protocol Sodium Chloride 3 ml 11/03/24 10:58 Sodium Chloride Rt Anastacia 0.9% 3 Ml Nebu INH 12/03/24 10:57 PRN PRN SOLN Plan The patient is a 49-year-old male with significant past medical history of esophageal cancer currently on remission, and hypertension presented to ED with chief complaint of acute SOB and generalized weakness is currently being treated for septic shock, Takotsubo syndrome complicated by sigmoid interventricular septum further leading to tachycardia and NSTEMI type II. #Acute encephalopathy Likely multifactorial 2/2 #Alcohold withdrawal, and #Demylinating disease pattern 2/2 #Alcohol abuse disorder Patient presented with generalized weakness, later required intubation in the setting of aspiration pneumonia and septic shock. However, the patient has not been tolerating spontaneous breathing trials. BL UE weakness was there so MRI brain was done that revealed punctate foci increased signal in the frontal parietal white matter, demyelinating disease pattern. Therefore, the ICU team is unable to extubate the patient. -Management deferred to ICU team #Abnormal EKG, likely 2/2 #Takotsubo syndrome vs LAD, complicated by #Sigmoid interventricular septum, possibly leading to #Moderate to severe eccentric MR, leading to #Moderate to severe PAH #HFrEF with apical akinesis EKG was significant for sinus tachycardia with deep symmetric T wave inversion in lateral leads V4 to V6, and inverted T waves in lead I and aVL. TTE on 11/03/2024 revealed: Normal LV size and moderate LV systolic dysfunction with an EF of 35 to 40%. Apical akinesis with hypokinesis of the mid to apical anterior, anterolateral and apical septal segments indicating possible Takotsubo syndrome versus LAD involvement. RV Normal in size and function. 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 Severe LA dilatation. Trace AI Moderate TR with mild RA dilatation. No Pericardial Effusion. IVC not well- visualized. Repeat limited TTE on 11/04/2024 revealed: Normal LV size and mildly decreased LV systolic function with an EF of around 40 to 45%. EF improved from yesterday. Hypokinesis of the mid to apical anterior and anterolateral and apical segments appear improved. Apical akinesis still noted. Sigmoid septum noted with LVOT obstruction leading to moderate to severe eccentric MR directed anteriorly. Gradient measurement not accurate due to contamination with MR jet. Normal RV size and function. No pericardial effusion -As the patient has sigmoid interventricular septum, and recent stressor likely leading to Takotsubo syndrome, leading to tachycardia of the base of left ventricle, which is further pulling in mitral valve leading to MR resulting with moderate to severe PAH. -Volume status is critical, to maintain euvolemia, as hypovolemia will cause decrease venous return, resulting as compensatory tachycardia of upper left ventricle leading to further MR, with increased pulmonary arterial pressure and shunt reversal. On the other hand, if there is hypervolemia leading to increased venous return, will complicate MR and increased pulmonary artery pressure. -Diuretics and IV fluids as needed depending on the patient's fluid status. -Ok to hold GDMT for now and start on metoprolol tartarate 12.5 mg bid when BP stable. #Anemia Likely multifactorial in the setting of nutritional deficiency along with iron, vitamin B12 and folic acid deficiency MCV is elevated at 99. Given his severe alcohol abuse patient is probably B12 as well as folate deficient. Patient would benefit from replacement of iron and B12 and folate which will eventually help anemia long-term and improve his tachycardia which would help with his LVOT obstruction and ABBI along with improvement of sepsis and alcohol withdrawal syndrome - Recommended IV iron infusion, vitamin B12 and folic acid #Cirrhosis #Dilated esophageal varices #Hypertensive portal gastropathy 2/2 alcohol abuse disorder -GI Dr. Louis recommended octreotide drip for 5 days. #Acute hypoxic respiratory failure, improving #Septic shock, improved #Aspiration pneumonia, improving #Severe lactic acidosis, imporved Currently, the patient is intubated but saturating on 21% FiO2. Initially, the patient presented with blood pressure of 81/51, pulse 127, RR 40, and white count 33.8 meeting 3/4 SIRS criteria, chest x-ray significant for right sided middle and lower lobe pneumonia, CT chest abdomen and pelvis revealing right middle and lower lobe pneumonia, and left lower lobe pneumonia, and lactic acid level of 16, with endorgan failure as acute hypoxic respiratory failure requiring intubation. Patient received 2.5 L of bolus IV fluid Unable to wean off of mechanical ventilation and was following commands, but BL UE weakness was there so MRI brain was done that revealed: Punctate foci increased signal in the frontal parietal white matter, demyelinating disease pattern - Continue with aggressive IV antibiotics - Blood and urine culture sent, negative so far. - IgM for coccidiomycosis, negative - Pressor support, and recommended to avoid inotropes in the setting of sigmoid interventricular septum complicating Takotsubo syndrome. #NSTEMI type II, improved Likely multifactorial secondary to septic shock, Takotsubo syndrome, sigmoid interventricular septum leading to MR. No significant risk factor for STEMI, except for hypertension, as patient denies smoking or illicit drug use, and lipid panel was significant for LDL 39 and HDL 53. EKG unremarkable for STEMI - Heparin drip stopped - May consider cardiac catheterization after the patient is stable - Aspirin 81 Mg daily - Atorvastatin 40 Mg daily at night Thank you for cardiology consultation. We really appreciate for the opportunity to participate in this patient care. Cardiology team will continue to follow-up on this patient. The patient's management plan was discussed with my attending physician MD Ventura Montes MD, PGY3 Attending Provider Attestation/Addendum I have personally seen and examined the patient separately on the above date of service and discussed the plan of care with the resident. I reviewed the resident Dr. Ventura Myers consultation progress note and agree with the resident findings and plan in the note above and have also edited the documentation to reflect my findings and plan. Colin Brandt M.D. Interventional Cardiology
--- NOTE | 2024-11-09 15:21 | PD.RESPRO ---
Documentation for date of: 11/09/24 Subjective Subjective Interval history: Mr. Trejo is a 49-year-old male with past medical history of hypertension and personal history of esophageal cancer status post-treatment in remission who presented to [facility] emergency department on 11/03/2024 with a chief complaint of weakness and shortness of breath. Patient seen in the emergency department, significantly tachypneic with increased work of breathing, patient reported that he had generalized weakness and fatigue for the last 2 weeks which did not improve and he developed significant severe shortness of breath today. Reported the shortness of breath to be progressive accompanied with coughing, denies any similar complains in the past and denies any sick contacts. Patient denies any recent fevers, chills, headache, weight loss and any other medical problems. Patient also complained that he had been under recent stress, unable to find a job has been looking for a job. ED physician consulted boom conveyor operator for possible ICU admission, on examination in ED patient had increased work of breathing, tachypneic and respiratory rate 40s, requiring high flow nasal cannula, SpO2 100. Per review of labs it was noted that patient is lactic acidosis/metabolic acidosis with compensated respiratory alkalosis. Patient was given Lasix 20 mg IV x 1 considering underlying chest x-ray findings, bedside echo showed apical hypokinesis, case was discussed with claims support specialist on-call, echocardiogram was ordered in ED. Considering patient continued to have increased work of breathing, patient signed a POLST form for full treatment full code, discussed with patient's sister and patient regarding intubation and central line placement. Patient provided consent patient was intubated by boom conveyor operator team and postintubation right IJ triple-lumen central line placed. Patient admitted to the intensive care unit for acute hypoxic respiratory failure secondary to distributive shock, increased work of breathing. 11/04/24: Patient had black bowel movement overnight, 500 cc greenish fluid suctioned out of NG tube, was given aspirin earlier this morning, we will titrate down tidal volume lung protective volume goal 4 to 6 cc/kg, goal tidal volume for today is 320 will titrate down as patient tolerates, limited echo at bedside reviewed with senior technical analyst, there is some concern of LVOT obstruction patient's pressor requirement has improved, plan to titrate down vaso and replace vaso with phenylephrine, will start patient on thiamine IV twice daily and folate IV daily. Pending limited echo results. 11/05/24: Continues to have black bowel movements, hemoglobin stable, change Protonix to twice daily, reached out to patient's sister today, per patient's sister he is a chronic alcoholic, reports that he at least drinks 2 large bottles of hard liquor along with beers on a daily basis, patient is requiring high doses sedation, agitated at times has significant alcohol withdrawal, started on phenobarbital every 6 hours, chlordiazepoxide 50 3 times daily and patient also has Versed 2 mg as needed for anxiety. Patient has been off pressors, stop stress dose steroids, continue thiamine and folate acid. 11/06/24: Versed as needed. Precedex as needed for agitation. Continue thiamine and folic acid. Hypocalcemic, calcium gluconate X 1. Lasix 20mg x 1, lisinopril 2.5mg x 1, carvedilol 3.125 mg x 1, consider one-time dose of carvedilol 3.125 mg in the evening if blood pressure tolerates. Plan to wean the patient off of sedation today. 11/07/2024: Patient is off sedation. Patient is still lethargic. CT scan head ordered-negative for bleed. Lactulose 20 mg 3 times daily titrate to 4-5 BM. Liver ultrasound shows ascites. 3X 250 mL fluid boluses of LR goven per NICOM assessment, potassium repleted. Holding DVT prophylaxis and aspirin due to possible GI bleed. Started on Octreotide GTT, GI to scope later today. Zosyn switched to ceftriaxone. 11/08/2024: Patient continues to be off sedation. Following commands and opening eyes to voice, though patient is unable to move upper extremities. MRI ordered for concern of focal neurological deficit. Black tarry stools continue, EGD yesterday showed nonbleeding esophageal varices, will continue octreotide, lactulose, rifaximin, resume aspirin per GI recommendations. Patient is hypernatremic, will increase free water flushes to 175mL/4h. Ceftriaxone continued for the 5th day. 11/09/2024: Patient had a low-grade temperature overnight of 99.9. Continues to downtrend. White count went up to 19 from 16.5. Patient continues to be off sedation. Following commands and opening eyes to voice though still unable to move upper extremities. MRI today demonstrated increased white matter signal evident, scattered punctate foci increased signal in the frontal parietal white matter, demyelinating disease pattern. Patient continues to have black tarry stools. Octreotide, lactulose, rifaximin, and aspirin continued. Patient continues to be hypernatremic, will decrease free water flushes to 125 mL/4 hours. Exam Vital Signs Temp Pulse Resp BP Pulse Ox O2 Del Method O2 Flow Rate 98.5 F 100 27 H 124/71 96 Mechanical Ventilation 65 11/09/24 08:00 11/09/24 14:16 11/09/24 07:00 11/09/24 14:16 11/09/24 14:16 11/09/24 08:00 11/04/24 00:00 FiO2 30 11/09/24 14:16 Narrative Exam General: Intubated, not sedated, cachectic, temporal wasting. Neurologic: GCS 10T, following commands, withdraws to pain lower extremities bilaterally but not upper. HEENT: Normocephalic, atraumatic, mucous membranes dry. Pupils reactive to light. Heart: Tachycardic, systolic murmur at the mitral listening post left fifth intercostal space sternal border. Lungs: Pectus excavatum, clear to auscultation bilaterally with wheezing B/L Abdomen: Right sided reducible inguinal hernia. Right lower quadrant bruise approximately 5 cm long at the site of heparin SQ inj. Extremities: 1+ pitting edema in the distal upper extremities bilaterally. No edema in the lower extremities bilaterally. 2+ radial and dorsalis pedis pulses bilaterally. Rt knee effusions. Skin: Cool. Dry. No rash. Objective Labs 11/10/24 04:22 11/10/24 04:22 Labs: Laboratory Results - last 24 hr 11/04/24 11/08/24 11/08/24 05:15 05:08 18:34 WBC RBC Hgb 8.2 L Hct 25.3 L MCV MCH MCHC RDW Std Deviation Plt Count Neut % (Auto) Lymph % (Auto) [place] % (Auto) Eos % (Auto) Baso % (Auto) Neut # (Auto) Lymph # (Auto) [place] # (Auto) Eos # (Auto) Baso # (Auto) Immature Gran # (Auto) Absolute Nucleated RBC Immature Gran % Nucleated RBC % PT INR APTT Puncture Site ABG pH ABG pCO2 ABG pO2 ABG HCO3 ABG O2 Saturation ABG Base Excess FiO2 Sodium Potassium Chloride Carbon Dioxide Anion Gap BUN Creatinine Estim Creat Clear Calc eGFR BUN/Creatinine Ratio Glucose Calculated Osmolality Calcium Corrected Calcium Phosphorus Magnesium Total Bilirubin AST ALT Alkaline Phosphatase Total Protein Albumin Globulin Albumin/Globulin Ratio Vitamin B12 699 Folate 13.89 Misc Test Result See Sep Rpt 11/09/24 11/09/24 04:11 05:00 WBC 19.0 H RBC 2.67 L Hgb 8.3 L Hct 26.4 L MCV 99 MCH 31.1 MCHC 31.4 RDW Std Deviation 67.2 H Plt Count 272 D Neut % (Auto) 77 Lymph % (Auto) 6 L [place] % (Auto) 13 H Eos % (Auto) 3 Baso % (Auto) 0 Neut # (Auto) 14.6 H Lymph # (Auto) 1.1 [place] # (Auto) 2.4 H Eos # (Auto) 0.5 Baso # (Auto) 0.0 Immature Gran # (Auto) 0.31 H Absolute Nucleated RBC 0.23 H Immature Gran % 2 H Nucleated RBC % 1 H PT 11.5 INR 1.1 APTT 30.0 Puncture Site Right Radial ABG pH 7.44 ABG pCO2 40 ABG pO2 63 L ABG HCO3 27 H ABG O2 Saturation 93 ABG Base Excess 3 FiO2 21 Sodium 149 H Potassium 3.9 Chloride 112 H Carbon Dioxide 27.3 Anion Gap 10 BUN 17 Creatinine 0.8 Estim Creat Clear Calc 86.5 eGFR > 60 BUN/Creatinine Ratio 21 H Glucose 108 H Calculated Osmolality 298 H Calcium 8.0 L Corrected Calcium 8.6 Phosphorus 3.1 Magnesium 2.0 Total Bilirubin 0.6 AST 103 H ALT 114 H Alkaline Phosphatase 102 Total Protein 5.7 Albumin 3.2 L Globulin 2.5 Albumin/Globulin Ratio 1.3 Vitamin B12 Folate Misc Test Result ABG Interpretation ABG results: 11/03/24 11/03/24 11/03/24 11:20 14:11 17:06 ABG pH 7.35 7.34 L 7.20 L D ABG pCO2 21 L 20 L 45 D ABG pO2 193 H 82 L D 78 L ABG HCO3 12 L 11 L 16 L ABG O2 Saturation 100 H 96 91 ABG Base Excess -12 L -14 L -12 L VBG pH VBG pCO2 VBG pO2 VBG Base Excess 07/01/2111/04/24 11/04/24 00:00 04:29 05:15 ABG pH 7.50 H D ABG pCO2 30 L D ABG pO2 109 H D ABG HCO3 23 ABG O2 Saturation 100 H ABG Base Excess 1 VBG pH 7.43 7.52 VBG pCO2 35 L 27 L VBG pO2 43 57 VBG Base Excess -1 0 11/05/24 11/06/24 11/06/24 04:49 03:40 21:45 ABG pH 7.48 H 7.41 ABG pCO2 35 43 ABG pO2 74 L D 108 D ABG HCO3 26 27 H ABG O2 Saturation 96 99 H ABG Base Excess 3 2 VBG pH 7.49 VBG pCO2 39 D VBG pO2 39 VBG Base Excess 6 H 11/07/24 11/08/24 11/09/24 05:59 04:19 04:11 ABG pH 7.49 H 7.48 H 7.44 ABG pCO2 39 38 40 ABG pO2 71 L D 77 L 63 L ABG HCO3 29 H 29 H 27 H ABG O2 Saturation 96 97 93 ABG Base Excess 6 H 5 H 3 VBG pH VBG pCO2 VBG pO2 VBG Base Excess Quality Measures Quality Measures sepsis Current suspected stage: ruled out Possible source: pulmonary Blood cultures ordered: completed in ED Antibiotic ordered: Yes Assessment & Plan Assessment Current Active Medications: Generic Name Dose Route Start Last Admin Trade Name Freq PRN Reason Stop Dose Admin Acetaminophen 325 mg 11/05/24 09:48 Acetaminophen 325 Mg Tablet PO 12/03/24 15:31 Q6H PRN Fever >101.5 Albuterol/Ipratropium 3 ml 11/08/24 18:09 11/09/24 00:33 Albuterol/Ipratropium (Duoneb) Rt Anastacia 3 Ml Nebu INH 12/08/24 18:59 3 ml Q4HRRT PRN Administration wheezing Aspirin 81 mg 11/04/24 09:00 11/09/24 09:58 Aspirin 81 Mg Chew GT 12/04/24 08:59 81 mg QDAY BETO Administration Atorvastatin Calcium 40 mg 11/03/24 21:00 11/08/24 21:33 Atorvastatin Calcium 20 Mg Tablet PO 12/03/24 20:59 40 mg HS BETO Administration Folic Acid 1 mg 11/04/24 09:15 11/09/24 11:56 Folic Acid Inj 1 Mg/0.2 Ml IVP 12/04/24 09:14 Not Given QDAY BETO Heparin Sodium (Porcine) 5,000 unit 11/05/24 14:00 11/07/24 05:01 Heparin Sod Inj 5000 Unit/Ml Vial SC 11/19/24 13:59 5,000 unit Q8HR BETO Administration Norepinephrine/Dextrose 8 mg in 250 mls @ 5.63 mls/hr 11/03/24 14:57 11/06/24 21:45 Levophed In D5w 8mg/250ml IV 12/03/24 14:56 0 mcg/kg/min .Q24H PRN 0 mls/hr PER PROTOCOL Titration Protocol 0.05 MCG/KG/MIN Propofol 1,000 mg in 100 mls @ 1.802 mls/hr 11/06/24 08:06 Diprivan Ivpb IV 12/06/24 08:05 .Q24H PRN PER PROTOCOL Protocol 5 MCG/KG/MIN Fentanyl Citrate 2,500 mcg in 250 mls @ 2.5 mls/hr 11/06/24 08:06 Sublimaze Inj 2,500 Mcg/250 Ml Bag IV 11/11/24 08:05 .Q24H PRN PER PROTOCOL Protocol 25 MCG/HR Phenylephrine HCl 40 mg/ 100 mls @ 0.821 mls/hr 11/06/24 21:30 11/07/24 07:25 Sodium Chloride IV 12/06/24 21:29 0 mcg/kg/min .Q24H PRN 0 mls/hr Per Cardiogenic Protocol Titration Protocol 0.1 MCG/KG/MIN Ceftriaxone Sodium/Dextrose 1 gm in 50 mls @ 100 mls/hr 11/07/24 09:28 11/09/24 09:58 Rocephin/D5w 1gm Iv Premix IV 11/14/24 09:27 100 mls/hr QDAY BETO Administration Octreotide Acetate 1,000 mcg/ 102 mls @ 5.1 mls/hr 11/07/24 10:16 11/09/24 02:58 Sodium Chloride IV 11/12/24 10:15 50 mcg/hr .Q20H BETO 5.1 mls/hr Administration Protocol 50 MCG/HR Ferric Sodium Gluconate 125 mg 110 mls @ 110 mls/hr 11/08/24 17:15 11/09/24 09:57 / Sodium Chloride IV 12/08/24 17:14 110 mls/hr QDAY BETO Administration Lactulose 20 gm 11/07/24 14:00 11/09/24 05:13 Lactulose Syrup 20 Gm/30 Ml Udc NG 12/07/24 13:59 20 gm TID BETO Administration Protocol Midodrine 5 mg 11/07/24 14:00 11/09/24 05:13 Midodrine 5 Mg Tablet PO 12/07/24 13:59 5 mg TID BETO Administration Ondansetron HCl 4 mg 11/03/24 15:32 Ondansetron Inj 2 Mg/Ml Inj 2 Ml IVP 12/03/24 15:31 Q6H PRN NAUSEA OR VOMITING Protocol Pantoprazole Sodium 40 mg 11/05/24 21:00 11/09/24 09:58 Pantoprazole Inj 40 Mg Vial IVP 12/05/24 20:59 40 mg BID BETO Administration Rifaximin 550 mg 11/08/24 13:45 11/09/24 09:58 Rifaximin 550 Mg Tablet PO 11/15/24 13:44 550 mg BID BETO Administration Sennosides 1 tab 11/04/24 09:00 11/09/24 09:58 Senna Tablet PO 12/04/24 08:59 1 tab QDAY BETO Administration Protocol Sodium Chloride 3 ml 11/03/24 10:58 Sodium Chloride Rt Anastacia 0.9% 3 Ml Nebu INH 12/03/24 10:57 PRN PRN SOLN Plan Summary: Mr. Trejo is a 49-year-old male with past medical history of hypertension and personal history of esophageal cancer status post-treatment in remission who presented to [facility] emergency department on 11/03/2024 with a chief complaint of weakness and shortness of breath. Neuro #AEP most likely hepatic versus metabolic versus focal neurological deficit versus less likely anoxic encephalopathy #Alcohol withdrawal (resolved) #Questionable [place] encephalopathy - Patient is cachectic with temporal wasting, and BMI of 18.3 kg/m. Patient has been off of sedation for 3 days - Consider hepatic encephalopathy in the setting of alcohol use, Imaging showed irregular liver contour, Ammonia was 78 on presentation. has LGIB. Plan: - IV Thiamine and folate - Lactulose 20 GM p.o. 3 times daily, goal of 3-4 BM per day - Rifxamin 550mg BID #Questionable focal Neurological Deficit (resolved) #Generalized weakness #Demyelinating disease pattern on MRI - Motor deficit isolated to the bilateral upper extremities. severe lethargy - MRI of the head showed punctate foci with increased signal in the frontal parietal white matter, demyelinating disease pattern possible. Low likelihood of esophageal cancer metastasis. Plan: - Cardiac #Shock Differential diagnosis: - Distributive shock: Likely septic in setting of severe pneumonia, patient had significantly elevated lactate on presentation, Pro-Jonny elevated. Plan: -Continue ceftriaxone, last dose on the 10 of November #HFrEF, EF 35 to 40% #Suspicion of Takotsubo cardiomyopathy #Possible LVOT obstruection 05/31 [facility] - Echo 11/03/2024 showed ejection fraction 35 to 40%, decreased apical motion - Patient is net positive half a liter in the past 24 hours - Patient went back on Levophed evening of 11/06/2024, was switched to phenylephrine in order to increase diastolic filling time, off pressors morning of 11/07/2024 - Appears intravascularly dry evidenced by hypernatremia and lack of edema on physical exam Plan: - Midodrine 5 mg p.o. 3 times daily - Routine free water flushes, volume changed from 175 mL every 4 hours to 125 mL every 4 hours - Holding beta-blockers - Following cardiology recommendations, they recommend metoprolol 12.5 mg twice daily when blood pressure stabilized #NSTEMI type II most likely type I - Troponin down trended - Cardiology consulted Pulmonary #Acute hypoxic respiratory failure secondary to pneumonia, respiratory failure in setting of shock #Aspiration pneumonia Differential diagnosis: - Consider aspiration pneumonia in the presence of dysphagia due to history of esophageal cancer Diagnostic workup: - Initial ABG shows pH 7.35, pCO2 21, pO2 193, bicarb 12, patient on high flow nasal cannula in ED, significantly tachypneic, increased work of breathing, respiratory rate in 40s, accessory muscle use noted. - ABG 11/09/2024 pH 7.44 pCO2 40 pO2 63 HCO3 27 O2 saturation 93, CaO2 (oxygen content of arterial blood) 10.5 - Patient denies any sick contacts, although CTA shows significant right-sided pneumonia and left base pneumonia - Bedside flu, COVID negative, cocci IgM negative, MRSA nasal screen negative, Blood cultures negative Plan: - Lung protective tidal volumes of 4 to 6 cc/kg - De-escalated Zosyn to ceftriaxone, till the 10 of November all cultures negative - Legionella still pending Gastrointestinal #Decompensated cirrhosis 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 #Transaminitis #Suspected hepatic encephalopathy #GI bleed workup #Melena Diagnostic workup: - CTA abdomen showed evidence of cirrhosis - Per the patient's family member the patient consumes 2 bottles of hard alcohol on a daily basis in addition to beer, Hepatitis panel negative - Patient remains GCS 10T after 24 hours of being off sedation, consider hepatic encephalopathy - CT chest abdomen pelvis showed cirrhosis - AST 103 ALT 114 11/09/2024, has been downtrending - MELD score of 7, 1.9% estimated 3-month mortality - Child-Pug Score: 8 - Official liver ultrasound today shows ascites - EGD 11/07/2024 showed grade 1 esophageal varices, 2+ esophageal varices not large enough for band ligation Plan: - Continue folate and thiamine - Lactulose 20 GM p.o. 3 times daily, titrate to 4-5 bowel movements - Continue octreotide gtt for 5 days started on the 11/07/2024 ends in 11/12/2024 - Continue Protonix twice daily - Hb daily monitor #Personal history of esophageal cancer, in remission Differential diagnosis: Patient is status post esophagectomy Diagnostic workup: - Patient reported self history of esophageal cancer reports completed treatment heart disease in remission - History of esophagectomy, there is suspicion of underlying dysphagia Follow-up: - Resume tube feeds - Speech eval after extubation is planned #Large right inguinal hernia #Dilated bowel loops Differential diagnosis: Incarcerated hernia. Diagnostic workup: - On physical exam hernia is reducible, low suspicion of incarceration - CTA abdomen pelvis shows large right inguinal hernia noted on imaging as well, no radiological signs of incarceration Treatment: - General Surgery consulted, no surgical intervention needed in this admission, can follow up o/p Renal/Genitourinary #Hypernatremia Differential diagnosis: Hypovolemia - Was given IV fluid in the emergency department in addition to Lasix Diagnostic workup: - Sodium is 149 11/09/2024 - Calculated free water deficit is -2.16 L - Appears intravascularly dry Plan: - Continue to monitor urine output - Free water flushes 125mL Q4H #Hypokalemia (Resolved) #Lactic acidosis, (Resolved) #High anion gap metabolic acidosis, (Resolved) Endocrine No active problems Hematology #Leukocytosis #Low-grade temperature (Resolving) Diagnostic workup: - WBC 19 from 16.5 - Temperature up to 100.2, improving - Consider acute phase reaction in combination with stress dose steroids Treatment: - Follow CBC #Normocytic normochromic anemia versus iron deficiency anemia Differential diagnosis: Nutritional deficiency, in the setting of sepsis, GI bleed, low suspicion of hemolysis Diagnostic workup: - Hemoglobin 8.1 on presentation - Hemoglobin 8.3 hematocrit 27.3 11/09/2024 -Iron level 19 on 11/07/2024 Treatment: - Ferric Sod Glut 125 mg received 11/08/2024 - Follow CBC in a.m. - Continue folic acid and vitamin B12 #Thrombocytosis, (Resolved) Infectious Disease #Pneumonia Diagnostic workup: - Chest x-ray significant for bibasilar infiltrates Plan: -Continue ceftriaxone Integumentary No active problems DVT prophylaxis: SCDs GI prophylaxis: IV Protonix twice a day Diet: NPO Tubes: Endotracheal tube Lines: Peripheral IV, right IJ triple-lumen Code status: Full code Dispo: Sedation is off. MRI was negative for any cerebrovascular event, was suspicious for demyelination disease, low suspicion for esophageal cancer metastasis, will consult neurology. Patient was seen and discussed with my attending Dr. Kyleigh Chaudhary M.D. and my senior resident Dr. Wiliam Ramos M.D. PGY-3. Vern Fairchild D.O. PGY-1
[2024-11-09] MEDS: FUROSEMIDE INJ 10 MG/ML 4ML VIAL 40 MG IVP (15:32)
--- NOTE | 2024-11-09 17:05 | PC.SS ---
Update: Patient remains intubated. Off sedation. NG tube in place, feedings started. [place] catheter placed due to patient possessing low urine retention. MRI today results are pending. Low grade fever overnight. Patient receiving IV antibiotics. Patient on pressor support.
--- NOTE | 2024-11-09 18:22 | PD.RESPRO ---
Documentation for date of: 11/09/24 Exam Vital Signs Temp Pulse Resp BP Pulse Ox O2 Del Method O2 Flow Rate 98.6 F 110 H 22 H 97/64 94 L Mechanical Ventilation 65 11/09/24 16:00 11/09/24 18:00 11/09/24 18:00 11/09/24 18:00 11/09/24 18:00 11/09/24 08:00 11/04/24 00:00 FiO2 30 11/09/24 16:00 Objective Labs 11/12/24 03:20 11/12/24 11:11 Labs: Laboratory Results - last 24 hr 11/04/24 11/08/24 11/08/24 05:15 05:08 18:34 WBC RBC Hgb 8.2 L Hct 25.3 L MCV MCH MCHC RDW Std Deviation Plt Count Neut % (Auto) Lymph % (Auto) [place] % (Auto) Eos % (Auto) Baso % (Auto) Neut # (Auto) Lymph # (Auto) [place] # (Auto) Eos # (Auto) Baso # (Auto) Immature Gran # (Auto) Absolute Nucleated RBC Immature Gran % Nucleated RBC % PT INR APTT Puncture Site ABG pH ABG pCO2 ABG pO2 ABG HCO3 ABG O2 Saturation ABG Base Excess FiO2 Sodium Potassium Chloride Carbon Dioxide Anion Gap BUN Creatinine Estim Creat Clear Calc eGFR BUN/Creatinine Ratio Glucose Calculated Osmolality Calcium Corrected Calcium Phosphorus Magnesium Total Bilirubin AST ALT Alkaline Phosphatase Total Protein Albumin Globulin Albumin/Globulin Ratio Vitamin B12 699 Folate 13.89 Misc Test Result See Sep Rpt 11/09/24 11/09/24 04:11 05:00 WBC 19.0 H RBC 2.67 L Hgb 8.3 L Hct 26.4 L MCV 99 MCH 31.1 MCHC 31.4 RDW Std Deviation 67.2 H Plt Count 272 D Neut % (Auto) 77 Lymph % (Auto) 6 L [place] % (Auto) 13 H Eos % (Auto) 3 Baso % (Auto) 0 Neut # (Auto) 14.6 H Lymph # (Auto) 1.1 [place] # (Auto) 2.4 H Eos # (Auto) 0.5 Baso # (Auto) 0.0 Immature Gran # (Auto) 0.31 H Absolute Nucleated RBC 0.23 H Immature Gran % 2 H Nucleated RBC % 1 H PT 11.5 INR 1.1 APTT 30.0 Puncture Site Right Radial ABG pH 7.44 ABG pCO2 40 ABG pO2 63 L ABG HCO3 27 H ABG O2 Saturation 93 ABG Base Excess 3 FiO2 21 Sodium 149 H Potassium 3.9 Chloride 112 H Carbon Dioxide 27.3 Anion Gap 10 BUN 17 Creatinine 0.8 Estim Creat Clear Calc 86.5 eGFR > 60 BUN/Creatinine Ratio 21 H Glucose 108 H Calculated Osmolality 298 H Calcium 8.0 L Corrected Calcium 8.6 Phosphorus 3.1 Magnesium 2.0 Total Bilirubin 0.6 AST 103 H ALT 114 H Alkaline Phosphatase 102 Total Protein 5.7 Albumin 3.2 L Globulin 2.5 Albumin/Globulin Ratio 1.3 Vitamin B12 Folate Misc Test Result ABG Interpretation ABG results: 11/03/24 11/03/24 11/03/24 11:20 14:11 17:06 ABG pH 7.35 7.34 L 7.20 L D ABG pCO2 21 L 20 L 45 D ABG pO2 193 H 82 L D 78 L ABG HCO3 12 L 11 L 16 L ABG O2 Saturation 100 H 96 91 ABG Base Excess -12 L -14 L -12 L VBG pH VBG pCO2 VBG pO2 VBG Base Excess 11/04/24 11/04/24 11/04/24 00:00 04:29 05:15 ABG pH 7.50 H D ABG pCO2 30 L D ABG pO2 109 H D ABG HCO3 23 ABG O2 Saturation 100 H ABG Base Excess 1 VBG pH 7.43 7.52 VBG pCO2 35 L 27 L VBG pO2 43 57 VBG Base Excess -1 0 11/05/24 11/06/24 11/06/24 04:49 03:40 21:45 ABG pH 7.48 H 7.41 ABG pCO2 35 43 ABG pO2 74 L D 108 D ABG HCO3 26 27 H ABG O2 Saturation 96 99 H ABG Base Excess 3 2 VBG pH 7.49 VBG pCO2 39 D VBG pO2 39 VBG Base Excess 6 H 11/07/24 11/08/24 11/09/24 05:59 04:19 04:11 ABG pH 7.49 H 7.48 H 7.44 ABG pCO2 39 38 40 ABG pO2 71 L D 77 L 63 L ABG HCO3 29 H 29 H 27 H ABG O2 Saturation 96 97 93 ABG Base Excess 6 H 5 H 3 VBG pH VBG pCO2 VBG pO2 VBG Base Excess Quality Measures Quality Measures sepsis Current suspected stage: sepsis Possible source: pulmonary Blood cultures ordered: completed in ED Antibiotic ordered: Yes Assessment & Plan Assessment Current Active Medications: Generic Name Dose Route Start Last Admin Trade Name Freq PRN Reason Stop Dose Admin Acetaminophen 325 mg 11/05/24 09:48 Acetaminophen 325 Mg Tablet PO 12/03/24 15:31 Q6H PRN Fever >101.5 Albuterol/Ipratropium 3 ml 11/08/24 18:09 11/09/24 00:33 Albuterol/Ipratropium (Duoneb) Rt Anastacia 3 Ml Nebu INH 12/08/24 18:59 3 ml Q4HRRT PRN Administration wheezing Aspirin 81 mg 11/04/24 09:00 11/09/24 09:58 Aspirin 81 Mg Chew GT 12/04/24 08:59 81 mg QDAY BETO Administration Atorvastatin Calcium 40 mg 11/03/24 21:00 11/08/24 21:33 Atorvastatin Calcium 20 Mg Tablet PO 12/03/24 20:59 40 mg HS BETO Administration Folic Acid 1 mg 11/04/24 09:15 11/09/24 11:56 Folic Acid Inj 1 Mg/0.2 Ml IVP 12/04/24 09:14 Not Given QDAY BETO Heparin Sodium (Porcine) 5,000 unit 11/05/24 14:00 11/07/24 05:01 Heparin Sod Inj 5000 Unit/Ml Vial SC 11/19/24 13:59 5,000 unit Q8HR BETO Administration Norepinephrine/Dextrose 8 mg in 250 mls @ 5.63 mls/hr 11/03/24 14:57 11/06/24 21:45 Levophed In D5w 8mg/250ml IV 12/03/24 14:56 0 mcg/kg/min .Q24H PRN 0 mls/hr PER PROTOCOL Titration Protocol 0.05 MCG/KG/MIN Propofol 1,000 mg in 100 mls @ 1.802 mls/hr 11/06/24 08:06 Diprivan Ivpb IV 12/06/24 08:05 .Q24H PRN PER PROTOCOL Protocol 5 MCG/KG/MIN Fentanyl Citrate 2,500 mcg in 250 mls @ 2.5 mls/hr 11/06/24 08:06 Sublimaze Inj 2,500 Mcg/250 Ml Bag IV 11/11/24 08:05 .Q24H PRN PER PROTOCOL Protocol 25 MCG/HR Phenylephrine HCl 40 mg/ 100 mls @ 0.821 mls/hr 11/06/24 21:30 11/07/24 07:25 Sodium Chloride IV 12/06/24 21:29 0 mcg/kg/min .Q24H PRN 0 mls/hr Per Cardiogenic Protocol Titration Protocol 0.1 MCG/KG/MIN Ceftriaxone Sodium/Dextrose 1 gm in 50 mls @ 100 mls/hr 11/07/24 09:28 11/09/24 09:58 Rocephin/D5w 1gm Iv Premix IV 11/14/24 09:27 100 mls/hr QDAY BETO Administration Octreotide Acetate 1,000 mcg/ 102 mls @ 5.1 mls/hr 11/07/24 10:16 11/09/24 02:58 Sodium Chloride IV 11/12/24 10:15 50 mcg/hr .Q20H BETO 5.1 mls/hr Administration Protocol 50 MCG/HR Ferric Sodium Gluconate 125 mg 110 mls @ 110 mls/hr 11/08/24 17:15 11/09/24 09:57 / Sodium Chloride IV 12/08/24 17:14 110 mls/hr QDAY BETO Administration Lactulose 20 gm 11/07/24 14:00 11/09/24 15:32 Lactulose Syrup 20 Gm/30 Ml Udc NG 12/07/24 13:59 Not Given TID BETO Protocol Midodrine 5 mg 11/07/24 14:00 11/09/24 15:32 Midodrine 5 Mg Tablet PO 12/07/24 13:59 5 mg TID BETO Administration Ondansetron HCl 4 mg 11/03/24 15:32 Ondansetron Inj 2 Mg/Ml Inj 2 Ml IVP 12/03/24 15:31 Q6H PRN NAUSEA OR VOMITING Protocol Pantoprazole Sodium 40 mg 11/05/24 21:00 11/09/24 09:58 Pantoprazole Inj 40 Mg Vial IVP 12/05/24 20:59 40 mg BID BETO Administration Rifaximin 550 mg 11/08/24 13:45 11/09/24 09:58 Rifaximin 550 Mg Tablet PO 11/15/24 13:44 550 mg BID BETO Administration Sennosides 1 tab 11/04/24 09:00 11/09/24 09:58 Senna Tablet PO 12/04/24 08:59 1 tab QDAY BETO Administration Protocol Sodium Chloride 3 ml 11/03/24 10:58 Sodium Chloride Rt Anastacia 0.9% 3 Ml Nebu INH 12/03/24 10:57 PRN PRN SOLN
[2024-11-09] MEDS: ATORVASTATIN CALCIUM 20 MG TABLET 40 MG PO (21:20)
--- NOTE | 2024-11-09 21:56 | ESPR_ITS ---
Documentation for date of: 11/09/24 Subjective Subjective Interval history: Hemoglobin 8.3 relatively stable On 5 days of octreotide Exam Vital Signs Temp Pulse Resp BP Pulse Ox O2 Del Method O2 Flow Rate 98.6 F 110 H 27 H 108/75 100 Mechanical Ventilation 65 11/09/24 16:00 11/09/24 21:21 11/09/24 19:22 11/09/24 21:21 11/09/24 19:22 11/09/24 08:00 11/04/24 00:00 FiO2 50 11/09/24 19:22 Objective Labs 11/09/24 05:00 11/09/24 05:00 Labs: Laboratory Results - last 24 hr 11/04/24 11/09/24 11/09/24 05:15 04:11 05:00 WBC 19.0 H RBC 2.67 L Hgb 8.3 L Hct 26.4 L MCV 99 MCH 31.1 MCHC 31.4 RDW Std Deviation 67.2 H Plt Count 272 D Neut % (Auto) 77 Lymph % (Auto) 6 L [place] % (Auto) 13 H Eos % (Auto) 3 Baso % (Auto) 0 Neut # (Auto) 14.6 H Lymph # (Auto) 1.1 [place] # (Auto) 2.4 H Eos # (Auto) 0.5 Baso # (Auto) 0.0 Immature Gran # (Auto) 0.31 H Absolute Nucleated RBC 0.23 H Immature Gran % 2 H Nucleated RBC % 1 H PT 11.5 INR 1.1 APTT 30.0 Puncture Site Right Radial ABG pH 7.44 ABG pCO2 40 ABG pO2 63 L ABG HCO3 27 H ABG O2 Saturation 93 ABG Base Excess 3 FiO2 21 Sodium 149 H Potassium 3.9 Chloride 112 H Carbon Dioxide 27.3 Anion Gap 10 BUN 17 Creatinine 0.8 Estim Creat Clear Calc 86.5 eGFR > 60 BUN/Creatinine Ratio 21 H Glucose 108 H Calculated Osmolality 298 H Calcium 8.0 L Corrected Calcium 8.6 Phosphorus 3.1 Magnesium 2.0 Total Bilirubin 0.6 AST 103 H ALT 114 H Alkaline Phosphatase 102 Total Protein 5.7 Albumin 3.2 L Globulin 2.5 Albumin/Globulin Ratio 1.3 Misc Test Result See Sep Rpt Impressions Impression: 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 Hypertensive portal gastropathy Continue current management ABG Interpretation ABG results: 11/03/24 11/03/24 11/03/24 11:20 14:11 17:06 ABG pH 7.35 7.34 L 7.20 L D ABG pCO2 21 L 20 L 45 D ABG pO2 193 H 82 L D 78 L ABG HCO3 12 L 11 L 16 L ABG O2 Saturation 100 H 96 91 ABG Base Excess -12 L -14 L -12 L VBG pH VBG pCO2 VBG pO2 VBG Base Excess 11/04/24 11/04/24 11/04/24 00:00 04:29 05:15 ABG pH 7.50 H D ABG pCO2 30 L D ABG pO2 109 H D ABG HCO3 23 ABG O2 Saturation 100 H ABG Base Excess 1 VBG pH 7.43 7.52 VBG pCO2 35 L 27 L VBG pO2 43 57 VBG Base Excess -1 0 11/05/24 11/06/24 11/06/24 04:49 03:40 21:45 ABG pH 7.48 H 7.41 ABG pCO2 35 43 ABG pO2 74 L D 108 D ABG HCO3 26 27 H ABG O2 Saturation 96 99 H ABG Base Excess 3 2 VBG pH 7.49 VBG pCO2 39 D VBG pO2 39 VBG Base Excess 6 H 11/07/24 11/08/24 11/09/24 05:59 04:19 04:11 ABG pH 7.49 H 7.48 H 7.44 ABG pCO2 39 38 40 ABG pO2 71 L D 77 L 63 L ABG HCO3 29 H 29 H 27 H ABG O2 Saturation 96 97 93 ABG Base Excess 6 H 5 H 3 VBG pH VBG pCO2 VBG pO2 VBG Base Excess Assessment & Plan A&P Narrative 49 years old male with acute respiratory failure bilateral pneumonia acute coronary syndrome mechanically ventilated with previous history of Esophageal carcinoma status posttreatment and supposedly in remission Difficulty placing the NGT only OGT in Plan Will attempt to place a 14 [place] NGT either via nasogastric approach or oral approach Will follow the patient # Transaminitis most likely due to hypoxic hepatitis Thank you very much for the opportunity to participate in the care of this patient Time Spent With Patient Time: Total time spent is greater than 50% in coordination of care (as documented) at patient's floor/unit and/or counseling patient:
[2024-11-10] VITALS (33 sets, daily range): BP systolic 87–127; BP diastolic 52–86; PULSE 96–123; RESP 12–44; TEMP 36.4–38.1; O2SAT 87–100
[2024-11-10 05:58] LABS: Basophils # (Auto) 0.0 Thou/mm3 (0.0-0.2); Basophils % (Auto) 0 % (0-2.5); Eosinophils # (Auto) 0.6 Thou/mm3 (0.0-0.5); Eosinophils % (Auto) 4 % (0-10); Hematocrit 26.2 % (41.0-53.0); Immature Granulocytes Auto 0.22 Thou/mm3 (0.00-0.00); Lymphocytes # (Auto) 1.4 Thou/mm3 (1.0-4.8); Lymphocytes % (Auto) 8 % (10-50); Mean Corpuscular HGB Conc 31.7 g/dl (31.0-37.0); Mean Corpuscular Hemoglobin 30.9 pg (25.0-35.0); Mean Corpuscular Volume 97 fL (80-100); Monocytes # (Auto) 2.1 Thou/mm3 (0.0-0.8); Monocytes % (Auto) 13 % (0-12); Neutrophils # (Auto) 12.1 Thou/mm3 (1.8-7.7); Neutrophils % (Auto) 74 % (37-80); Nucleated Red Blood Cell # 0.14 Thou/mm3 (0.00-0.00); Nucleated Red Blood Cell % 1 /100 WBC (0); Platelet Count 287 Thou/mm3 (140-440); RDW Standard Deviation 65.3 fL (35.1-43.9); Red Blood Count 2.69 Miln/mm3 (4.50-5.90); White Blood Count 16.4 Thou/mm3 (3.8-10.6)
[2024-11-10] MEDS: LACTULOSE SYRUP 20 GM/30 ML UDC NG ×3 (05:58→21:36)
[2024-11-10] MEDS: MIDODRINE 5 MG TABLET PO ×3 (05:58→21:36)
[2024-11-10 06:05] LABS: INR 1.1 (0.9-1.3); Partial Thromboplastin Time 33.3 Seconds (22.0-36.0); Prothrombin Time 11.9 Seconds (9.0-12.2)
--- NOTE | 2024-11-10 06:11 | XR_ITS ---
Examination: AP chest single view Technique one AP portable upright chest single view Date and time: November 10, 2024, 0654 hours Comparison November 09, 2024 INDICATIONS: Hypoxic respiratory failure this week post intubation FINDINGS: Bibasilar pneumonia. Endotracheal tube tip 2.9 cm above [place]. Orogastric tube in the stomach, the tip is below the level of the film. Right internal jugular central line tip right atrium Prominent vascular congestion. Prominent osteopenia IMPRESSION: Significant bibasilar pneumonia. Mild heart failure.
[2024-11-10 06:13] LABS: Alanine Aminotransferase 92 U/L (10-49); Albumin, Serum 3.2 gm/dL (3.5-5.0); Albumin/Globulin Ratio 1.2 (1.2-2.2); Alkaline Phosphatase 105 U/L (46-116); Anion Gap 11 (7-16); Aspartate Amino Transferase 75 U/L (0-34); BUN/Creatinine Ratio 20 Ratio (12-20); Bilirubin,Total 0.4 mg/dL (0.3-1.2); Blood Urea Nitrogen 16 mg/dL (9-23); Calcium 8.2 mg/dL (8.3-10.6); Calcium (Corrected) 8.8 mg/dL (8.5-10.1); Carbon Dioxide 28.4 mMol/L (20.0-31.0); Chloride 110 mMol/L (98-107); Creatinine (Component) 0.8 mg/dL (0.6-1.3); Estimated Creatinine Clearance 80.8 mL/min (>60); Globulin 2.6 gm/dL (2.3-3.5); Glucose 143 mg/dL (74-106); Magnesium 1.9 mg/dL (1.6-2.6); Osmolality,Calculated 299 (275-295); Phosphorous 2.8 mg/dL (2.4-5.1); Potassium 4.0 mMol/L (3.4-5.1); Sodium 149 mMol/L (136-145); Total Protein 5.8 gm/dL (5.7-8.2); eGFR > 60 See Note
[2024-11-10 06:23] LABS: Hemoglobin 8.3 g/dL (13.5-16.0)
[2024-11-10 07:23] LABS: Base Excess 5 (-3-3); HCO3 29 mEq/L (20-26); Inspired Oxygen, FIO2 30 %; O2 Saturation 98 % (91-98); PCO2 42 mmHg (32.0-48.0); PO2 83 mmHg (83-108); pH, Arterial 7.45 (7.35-7.45)
[2024-11-10 07:24] LABS: Allen Test Performed/OK; Puncture Site Right Radial
[2024-11-10] MEDS: cefTRIAXone/D5w 1gm IV premix 1 GM/50 ML BAG IV (09:46)
[2024-11-10] MEDS: ASPIRIN 81 MG CHEW GT (09:46)
[2024-11-10] MEDS: FOLIC ACID INJ 1 MG/0.2 ML IVP (09:46)
[2024-11-10] MEDS: Magnesium Sulfate 2 GM Ivpb 2 GM/50 ML BAG IV (09:50)
[2024-11-10] MEDS: FERRIC SOD GLUC INJ 125 MG in SODIUM CHLORIDE 0.9% 100 ML 110 MG IV (10:30)
--- NOTE | 2024-11-10 11:24 | PD.RESPRO ---
Documentation for date of: 11/10/24 Subjective Subjective Interval history: The patient was seen and examined at the bedside this morning. Patient has been extubated and on oxygen via Ventimask. Tachypneic and has significant cough with reduced ability to clear his secretions. On examination he does have pulm crackles and his urine output was around 1.4 L after Lasix IV once yesterday Will give another dose of IV Lasix today. Stopped pressor support. Avoid inotropic's pressor support. Significant improvement in lactic acid level to 2.5 from 16 . White count still elevated, with hemoglobin 8.4. Improvement in pH and bicarb. Creatinine improving. Liver enzymes trending down. Repeat chest x-ray revealed significant improvement in bilateral pneumonia. TTE done on 11/04/2024 revealed Normal LV size and mildly decreased LV systolic function with an EF of around 40 to 45%. EF improved from yesterday. Hypokinesis of the mid to apical anterior and anterolateral and apical segments appear improved. Apical akinesis still noted. Sigmoid septum noted with LVOT obstruction leading to moderate to severe eccentric MR directed anteriorly. Gradient measurement not accurate due to contamination with MR jet. Normal RV size and function. No pericardial effusion -Diuretics and IV fluids as needed depending on the patient's fluid status. - GDMT was started on the patient as blood pressure and other vitals were stable off pressors, but again MAP < 65 and was given 500cc bolus fluid yesterday morning with improvement in BP and mild improvement in HR . Ok to hold GDMT for now and start on metoprolol tartarate 12.5 mg bid when BP stable. -MCV is elevated at 99. Given his severe alcohol abuse patient is probably B12 as well as folate deficient. Patient would benefit from replacement of iron and B12 and folate which will eventually help anemia long-term and improve his tachycardia which would help with his LVOT obstruction and ABBI along with improvement of sepsis and alcohol withdrawal syndrome. EGD done on 11/07/24 revealed 2+ variceal dilatation with hypertensive portal gastropathy. Recommended to continue octreotide drip for 5 days. MRI on 11/09/2024 revealed Punctate foci increased signal in the frontal parietal white matter, demyelinating disease pattern. Repeat CXR done on 11/10/2024 revealed improvement in pulmonary vascular congestion. -Recommended to continue with IV iron for iron deficiency anemia followed by vit B12 and folic acid, as his anemia has significant nutritional component. - Exam Vital Signs Temp Pulse Resp BP Pulse Ox O2 Del Method O2 Flow Rate 97.5 F 99 17 112/67 99 Mechanical Ventilation 65 11/10/24 04:00 11/10/24 10:40 11/10/24 06:28 11/10/24 10:40 11/10/24 10:40 11/09/24 08:00 11/04/24 00:00 FiO2 30 11/10/24 10:40 Narrative Exam General: No acute distress, sedated, intubated and mechanically ventilated, responding well to commands, opening eyes with verbal stimulus HEENT: Moist mucous membranes, oropharynx clear Neck: Supple, No masses, No JVD CVS: Mild tachycardia, No murmurs, rubs or gallops Lungs: Mild wheezing throughout the lung field, rhonchi appreciated throughout the lung field, mild bibasilar crackles appreciated Abd: Soft, NT/ND, +BS, hepatomegaly appreciated Ext: No edema, warm and well perfused Skin: No rash Psych: Unable to obtain Objective Labs 11/10/24 04:22 11/10/24 04:22 Labs: Laboratory Results - last 24 hr 11/10/24 11/10/24 04:22 07:02 WBC 16.4 H RBC 2.69 L Hgb 8.3 L Hct 26.2 L MCV 97 MCH 30.9 MCHC 31.7 RDW Std Deviation 65.3 H Plt Count 287 Neut % (Auto) 74 Lymph % (Auto) 8 L [place] % (Auto) 13 H Eos % (Auto) 4 Baso % (Auto) 0 Neut # (Auto) 12.1 H Lymph # (Auto) 1.4 [place] # (Auto) 2.1 H Eos # (Auto) 0.6 H Baso # (Auto) 0.0 Immature Gran # (Auto) 0.22 H Absolute Nucleated RBC 0.14 H Immature Gran % 1 H Nucleated RBC % 1 H PT 11.9 INR 1.1 APTT 33.3 Puncture Site Right Radial ABG pH 7.45 ABG pCO2 42 ABG pO2 83 D ABG HCO3 29 H ABG O2 Saturation 98 ABG Base Excess 5 H FiO2 30 Sodium 149 H Potassium 4.0 Chloride 110 H Carbon Dioxide 28.4 Anion Gap 11 BUN 16 Creatinine 0.8 Estim Creat Clear Calc 80.8 eGFR > 60 BUN/Creatinine Ratio 20 Glucose 143 H Calculated Osmolality 299 H Calcium 8.2 L Corrected Calcium 8.8 Phosphorus 2.8 Magnesium 1.9 Total Bilirubin 0.4 AST 75 H ALT 92 H Alkaline Phosphatase 105 Total Protein 5.8 Albumin 3.2 L Globulin 2.6 Albumin/Globulin Ratio 1.2 ABG Interpretation ABG results: 11/03/24 11/03/24 11/03/24 11:20 14:11 17:06 ABG pH 7.35 7.34 L 7.20 L D ABG pCO2 21 L 20 L 45 D ABG pO2 193 H 82 L D 78 L ABG HCO3 12 L 11 L 16 L ABG O2 Saturation 100 H 96 91 ABG Base Excess -12 L -14 L -12 L VBG pH VBG pCO2 VBG pO2 VBG Base Excess 11/04/24 11/04/24 11/04/24 00:00 04:29 05:15 ABG pH 7.50 H D ABG pCO2 30 L D ABG pO2 109 H D ABG HCO3 23 ABG O2 Saturation 100 H ABG Base Excess 1 VBG pH 7.43 7.52 VBG pCO2 35 L 27 L VBG pO2 43 57 VBG Base Excess -1 0 11/05/24 11/06/24 11/06/24 04:49 03:40 21:45 ABG pH 7.48 H 7.41 ABG pCO2 35 43 ABG pO2 74 L D 108 D ABG HCO3 26 27 H ABG O2 Saturation 96 99 H ABG Base Excess 3 2 VBG pH 7.49 VBG pCO2 39 D VBG pO2 39 VBG Base Excess 6 H 11/07/24 11/08/24 11/09/24 05:59 04:19 04:11 ABG pH 7.49 H 7.48 H 7.44 ABG pCO2 39 38 40 ABG pO2 71 L D 77 L 63 L ABG HCO3 29 H 29 H 27 H ABG O2 Saturation 96 97 93 ABG Base Excess 6 H 5 H 3 VBG pH VBG pCO2 VBG pO2 VBG Base Excess 11/10/24 07:02 ABG pH 7.45 ABG pCO2 42 ABG pO2 83 D ABG HCO3 29 H ABG O2 Saturation 98 ABG Base Excess 5 H VBG pH VBG pCO2 VBG pO2 VBG Base Excess Quality Measures Quality Measures sepsis Current suspected stage: sepsis Possible source: pulmonary Blood cultures ordered: completed in ED Antibiotic ordered: Yes Assessment & Plan Assessment Current Active Medications: Generic Name Dose Route Start Last Admin Trade Name Freq PRN Reason Stop Dose Admin Acetaminophen 325 mg 11/05/24 09:48 Acetaminophen 325 Mg Tablet PO 12/03/24 15:31 Q6H PRN Fever >101.5 Albuterol/Ipratropium 3 ml 11/08/24 18:09 11/09/24 19:21 Albuterol/Ipratropium (Duoneb) Rt Anastacia 3 Ml Nebu INH 12/08/24 18:59 3 ml Q4HRRT PRN Administration wheezing Aspirin 81 mg 11/04/24 09:00 11/10/24 09:46 Aspirin 81 Mg Chew GT 12/04/24 08:59 81 mg QDAY BETO Administration Atorvastatin Calcium 40 mg 11/03/24 21:00 11/09/24 21:20 Atorvastatin Calcium 20 Mg Tablet PO 12/03/24 20:59 40 mg HS BETO Administration Folic Acid 1 mg 11/04/24 09:15 11/10/24 09:46 Folic Acid Inj 1 Mg/0.2 Ml IVP 12/04/24 09:14 1 mg QDAY BETO Administration Heparin Sodium (Porcine) 5,000 unit 11/05/24 14:00 11/07/24 05:01 Heparin Sod Inj 5000 Unit/Ml Vial SC 11/19/24 13:59 5,000 unit Q8HR BETO Administration Norepinephrine/Dextrose 8 mg in 250 mls @ 5.63 mls/hr 11/03/24 14:57 11/06/24 21:45 Levophed In D5w 8mg/250ml IV 12/03/24 14:56 0 mcg/kg/min .Q24H PRN 0 mls/hr PER PROTOCOL Titration Protocol 0.05 MCG/KG/MIN Propofol 1,000 mg in 100 mls @ 1.802 mls/hr 11/06/24 08:06 Diprivan Ivpb IV 12/06/24 08:05 .Q24H PRN PER PROTOCOL Protocol 5 MCG/KG/MIN Fentanyl Citrate 2,500 mcg in 250 mls @ 2.5 mls/hr 11/06/24 08:06 Sublimaze Inj 2,500 Mcg/250 Ml Bag IV 11/11/24 08:05 .Q24H PRN PER PROTOCOL Protocol 25 MCG/HR Phenylephrine HCl 40 mg/ 100 mls @ 0.821 mls/hr 11/06/24 21:30 11/07/24 07:25 Sodium Chloride IV 12/06/24 21:29 0 mcg/kg/min .Q24H PRN 0 mls/hr Per Cardiogenic Protocol Titration Protocol 0.1 MCG/KG/MIN Ceftriaxone Sodium/Dextrose 1 gm in 50 mls @ 100 mls/hr 11/07/24 09:28 11/10/24 09:46 Rocephin/D5w 1gm Iv Premix IV 11/14/24 09:27 100 mls/hr QDAY BETO Administration Octreotide Acetate 1,000 mcg/ 102 mls @ 5.1 mls/hr 11/07/24 10:16 11/09/24 19:01 Sodium Chloride IV 11/12/24 10:15 50 mcg/hr .Q20H BETO 5.1 mls/hr Administration Protocol 50 MCG/HR Ferric Sodium Gluconate 125 mg 110 mls @ 110 mls/hr 11/08/24 17:15 11/09/24 09:57 / Sodium Chloride IV 12/08/24 17:14 110 mls/hr QDAY BETO Administration Lactulose 20 gm 11/07/24 14:00 11/10/24 05:58 Lactulose Syrup 20 Gm/30 Ml Udc NG 12/07/24 13:59 20 gm TID BETO Administration Protocol Metoprolol Succinate 25 mg 11/10/24 11:00 Metoprolol Succinate Xl 25 Mg Tabcr PO 12/10/24 10:59 QDAY BETO Midodrine 5 mg 11/07/24 14:00 11/10/24 05:58 Midodrine 5 Mg Tablet PO 12/07/24 13:59 5 mg TID BETO Administration Ondansetron HCl 4 mg 11/03/24 15:32 Ondansetron Inj 2 Mg/Ml Inj 2 Ml IVP 12/03/24 15:31 Q6H PRN NAUSEA OR VOMITING Protocol Pantoprazole Sodium 40 mg 11/05/24 21:00 11/10/24 09:46 Pantoprazole Inj 40 Mg Vial IVP 12/05/24 20:59 40 mg BID BETO Administration Rifaximin 550 mg 11/08/24 13:45 11/10/24 09:50 Rifaximin 550 Mg Tablet PO 11/15/24 13:44 550 mg BID BETO Administration Sennosides 1 tab 11/04/24 09:00 11/10/24 09:50 Senna Tablet PO 12/04/24 08:59 1 tab QDAY BETO Administration Protocol Sodium Chloride 3 ml 11/03/24 10:58 Sodium Chloride Rt Anastacia 0.9% 3 Ml Nebu INH 12/03/24 10:57 PRN PRN SOLN Plan The patient is a 49-year-old male with significant past medical history of esophageal cancer currently on remission, and hypertension presented to ED with chief complaint of acute SOB and generalized weakness is currently being treated for septic shock, Takotsubo syndrome complicated by sigmoid interventricular septum further leading to tachycardia and NSTEMI type II. #Acute encephalopathy, improving Likely multifactorial 2/2 #Alcohold withdrawal, and #Demylinating disease pattern 2/2 #Alcohol abuse disorder Patient presented with generalized weakness, later required intubation in the setting of aspiration pneumonia and septic shock. However, the patient has not been tolerating spontaneous breathing trials. BL UE weakness was there so MRI brain was done that revealed punctate foci increased signal in the frontal parietal white matter, demyelinating disease pattern. Therefore, the ICU team is unable to extubate the patient. -Management deferred to ICU team #Abnormal EKG, likely 2/2 #Takotsubo syndrome vs LAD, complicated by #Sigmoid interventricular septum, possibly leading to #Moderate to severe eccentric MR, leading to #Moderate to severe PAH #HFrEF with apical akinesis EKG was significant for sinus tachycardia with deep symmetric T wave inversion in lateral leads V4 to V6, and inverted T waves in lead I and aVL. TTE on 11/03/2024 revealed: Normal LV size and moderate LV systolic dysfunction with an EF of 35 to 40%. Apical akinesis with hypokinesis of the mid to apical anterior, anterolateral and apical septal segments indicating possible Takotsubo syndrome versus LAD involvement. RV Normal in size and function. 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 Severe LA dilatation. Trace AI Moderate TR with mild RA dilatation. No Pericardial Effusion. IVC not well-visualized. Repeat limited TTE on 11/04/2024 revealed: Normal LV size and mildly decreased LV systolic function with an EF of around 40 to 45%. EF improved from yesterday. Hypokinesis of the mid to apical anterior and anterolateral and apical segments appear improved. Apical akinesis still noted. Sigmoid septum noted with LVOT obstruction leading to moderate to severe eccentric MR directed anteriorly. Gradient measurement not accurate due to contamination with MR jet. Normal RV size and function. No pericardial effusion -As the patient has sigmoid interventricular septum, and recent stressor likely leading to Takotsubo syndrome, leading to tachycardia of the base of left ventricle, which is further pulling in mitral valve leading to MR resulting with moderate to severe PAH. -Volume status is critical, to maintain euvolemia, as hypovolemia will cause decrease venous return, resulting as compensatory tachycardia of upper left ventricle leading to further MR, with increased pulmonary arterial pressure and shunt reversal. On the other hand, if there is hypervolemia leading to increased venous return, will complicate MR and increased pulmonary artery pressure. -Diuretics and IV fluids as needed depending on the patient's fluid status. -Ok to hold GDMT for now and start on metoprolol tartarate 12.5 mg bid when BP stable. -CXR done on 11/10/2024 revealed mild improvement in pulmonary vascular congestions compared to CXR done on 11/09/2024. -Patient has been extubated and on oxygen via Ventimask. Tachypneic and has significant cough with reduced ability to clear his secretions. On examination he does have pulm crackles and his urine output was around 1.4 L after Lasix IV once yesterday Will give another dose of IV Lasix today. #Anemia Likely multifactorial in the setting of nutritional deficiency along with iron, vitamin B12 and folic acid deficiency MCV is elevated at 99. Given his severe alcohol abuse patient is probably B12 as well as folate deficient. Patient would benefit from replacement of iron and B12 and folate which will eventually help anemia long-term and improve his tachycardia which would help with his LVOT obstruction and ABBI along with improvement of sepsis and alcohol withdrawal syndrome - Recommended IV iron infusion, vitamin B12 and folic acid #Cirrhosis #Dilated esophageal varices #Hypertensive portal gastropathy 2/2 alcohol abuse disorder -GI Dr. Louis recommended octreotide drip for 5 days. #Acute hypoxic respiratory failure, improving #Septic shock, improved #Aspiration pneumonia, improving #Severe lactic acidosis, imporved Currently, the patient is intubated but saturating on 21% FiO2. Initially, the patient presented with blood pressure of 81/51, pulse 127, RR 40, and white count 33.8 meeting 3/4 SIRS criteria, chest x-ray significant for right sided middle and lower lobe pneumonia, CT chest abdomen and pelvis revealing right middle and lower lobe pneumonia, and left lower lobe pneumonia, and lactic acid level of 16, with endorgan failure as acute hypoxic respiratory failure requiring intubation. Patient received 2.5 L of bolus IV fluid Unable to wean off of mechanical ventilation and was following commands, but BL UE weakness was there so MRI brain was done that revealed: Punctate foci increased signal in the frontal parietal white matter, demyelinating disease pattern - Continue with aggressive IV antibiotics - Blood and urine culture sent, negative so far. - IgM for coccidiomycosis, negative - Pressor support, and recommended to avoid inotropes in the setting of sigmoid interventricular septum complicating Takotsubo syndrome. #NSTEMI type II, improved Likely multifactorial secondary to septic shock, Takotsubo syndrome, sigmoid interventricular septum leading to MR. No significant risk factor for STEMI, except for hypertension, as patient denies smoking or illicit drug use, and lipid panel was significant for LDL 39 and HDL 53. EKG unremarkable for STEMI - Heparin drip stopped - May consider cardiac catheterization after the patient is stable - Aspirin 81 Mg daily - Atorvastatin 40 Mg daily at night Thank you for cardiology consultation. We really appreciate for the opportunity to participate in this patient care. Cardiology team will continue to follow-up on this patient. The patient's management plan was discussed with my attending physician MD Ventura Montes MD, PGY3 Attending Provider Attestation/Addendum I have personally seen and examined the patient separately on the above date of service and discussed the plan of care with the resident. I reviewed the resident Dr. Ventura Myers consultation progress note and agree with the resident findings and plan in the note above and have also edited the documentation to reflect my findings and plan. Colin Brandt M.D. Interventional Cardiology
--- NOTE | 2024-11-10 11:35 | ESPR_ITS ---
Documentation for date of: 11/10/24 Subjective Subjective Interval history: Mr. Trejo is a 49-year-old male with past medical history of hypertension and personal history of esophageal cancer status post-treatment in remission who presented to [facility] emergency department on 11/03/2024 with a chief complaint of weakness and shortness of breath. Patient seen in the emergency department, significantly tachypneic with increased work of breathing, patient reported that he had generalized weakness and fatigue for the last 2 weeks which did not improve and he developed significant severe shortness of breath today. Reported the shortness of breath to be progressive accompanied with coughing, denies any similar complains in the past and denies any sick contacts. Patient denies any recent fevers, chills, headache, weight loss and any other medical problems. Patient also complained that he had been under recent stress, unable to find a job has been looking for a job. ED physician consulted senior mobile solutions architect for possible ICU admission, on examination in ED patient had increased work of breathing, tachypneic and respiratory rate 40s, requiring high flow nasal cannula, SpO2 100. Per review of labs it was noted that patient is lactic acidosis/metabolic acidosis with compensated respiratory alkalosis. Patient was given Lasix 20 mg IV x 1 considering underlying chest x- ray findings, bedside echo showed apical hypokinesis, case was discussed with hydrotreater operator on-call, echocardiogram was ordered in ED. Considering patient continued to have increased work of breathing, patient signed a POLST form for full treatment full code, discussed with patient's sister and patient regarding intubation and central line placement. Patient provided consent patient was intubated by senior mobile solutions architect team and postintubation right IJ triple-lumen central line placed. Patient admitted to the intensive care unit for acute hypoxic respiratory failure secondary to distributive shock, increased work of breathing. 11/04/24: Patient had black bowel movement overnight, 500 cc greenish fluid suctioned out of NG tube, was given aspirin earlier this morning, we will titrate down tidal volume lung protective volume goal 4 to 6 cc/kg, goal tidal volume for today is 320 will titrate down as patient tolerates, limited echo at bedside reviewed with marine technician, there is some concern of LVOT obstruction patient's pressor requirement has improved, plan to titrate down vaso and replace vaso with phenylephrine, will start patient on thiamine IV twice daily and folate IV daily. Pending limited echo results. 11/05/24: Continues to have black bowel movements, hemoglobin stable, change Protonix to twice daily, reached out to patient's sister today, per patient's sister he is a chronic alcoholic, reports that he at least drinks 2 large bottles of hard liquor along with beers on a daily basis, patient is requiring high doses sedation, agitated at times has significant alcohol withdrawal, started on phenobarbital every 6 hours, chlordiazepoxide 50 3 times daily and patient also has Versed 2 mg as needed for anxiety. Patient has been off pressors, stop stress dose steroids, continue thiamine and folate acid. 11/06/24: Versed as needed. Precedex as needed for agitation. Continue thiamine and folic acid. Hypocalcemic, calcium gluconate X 1. Lasix 20mg x 1, lisinopril 2.5mg x 1, carvedilol 3.125 mg x 1, consider one-time dose of carvedilol 3.125 mg in the evening if blood pressure tolerates. Plan to wean the patient off of sedation today. 11/07/2024: Patient is off sedation. Patient is still lethargic. CT scan head ordered-negative for bleed. Lactulose 20 mg 3 times daily titrate to 4-5 BM. Liver ultrasound shows ascites. 3X 250 mL fluid boluses of LR goven per NICOM assessment, potassium repleted. Holding DVT prophylaxis and aspirin due to possible GI bleed. Started on Octreotide GTT, GI to scope later today. Zosyn switched to ceftriaxone. 11/08/2024: Patient continues to be off sedation. Following commands and opening eyes to voice, though patient is unable to move upper extremities. MRI ordered for concern of focal neurological deficit. Black tarry stools continue, EGD yesterday showed nonbleeding esophageal varices, will continue octreotide, lactulose, rifaximin, resume aspirin per GI recommendations. Patient is hypernatremic, will increase free water flushes to 175mL/4h. Ceftriaxone continued for the 5th day. 11/09/2024: Patient had a low-grade temperature overnight of 99.9. Continues to downtrend. White count went up to 19 from 16.5. Patient continues to be off sedation. Following commands and opening eyes to voice though still unable to move upper extremities. MRI today demonstrated increased white matter signal evident, scattered punctate foci increased signal in the frontal parietal white matter, demyelinating disease pattern. Patient continues to have black tarry stools. Octreotide, lactulose, rifaximin, and aspirin continued. Patient continues to be hypernatremic, will decrease free water flushes to 125 mL/4 hours. 11/10/2024:No overnight events, patient following commands this morning, met parameters for extubation, RSBI less than 105, NIF greater than -20, patient extubated to coolmist later transitioned to oxygen mask, saturating well on 6 L. Patient had excessive amount of secretions, coughing, continue breathing treatments every 4 hours, started on chest physiotherapy every 4 hours with chest vest, will consider BiPAP at night. Patient will be given 20 mg Lasix x 1 today, blood pressure normotensive on midodrine 5 3 times daily, started on metoprolol succinate 25 p.o. daily magnesium was repleted earlier this morning. Exam Vital Signs Temp Pulse Resp BP Pulse Ox O2 Del Method O2 Flow Rate 97.5 F 99 17 112/67 99 Mechanical Ventilation 65 11/10/24 04:00 11/10/24 10:40 11/10/24 06:28 11/10/24 10:40 11/10/24 10:40 11/09/24 08:00 11/04/24 00:00 FiO2 30 11/10/24 10:40 Narrative Exam General: Intubated, not sedated, cachectic, temporal wasting. Neurologic: GCS 10T, following commands, withdraws to pain. HEENT: Normocephalic, atraumatic, mucous membranes moist. Pupils reactive to light. Heart: Tachycardic, systolic murmur at the mitral listening post left fifth intercostal space sternal border. Lungs: Pectus excavatum, clear to auscultation bilaterally with wheezing B/L Abdomen: Right sided reducible inguinal hernia. Right lower quadrant bruise approximately 5 cm long at the site of heparin SQ inj. Extremities: 1+ pitting edema in the distal upper extremities bilaterally. No edema in the lower extremities bilaterally. 2+ radial and dorsalis pedis pulses bilaterally. Rt knee effusions. Skin: Cool. Dry. No rash. Objective Labs 11/11/24 05:00 11/11/24 05:00 Labs: Laboratory Results - last 24 hr 11/10/24 11/10/24 04:22 07:02 WBC 16.4 H RBC 2.69 L Hgb 8.3 L Hct 26.2 L MCV 97 MCH 30.9 MCHC 31.7 RDW Std Deviation 65.3 H Plt Count 287 Neut % (Auto) 74 Lymph % (Auto) 8 L Maverick % (Auto) 13 H Eos % (Auto) 4 Baso % (Auto) 0 Neut # (Auto) 12.1 H Lymph # (Auto) 1.4 Maverick # (Auto) 2.1 H Eos # (Auto) 0.6 H Baso # (Auto) 0.0 Immature Gran # (Auto) 0.22 H Absolute Nucleated RBC 0.14 H Immature Gran % 1 H Nucleated RBC % 1 H PT 11.9 INR 1.1 APTT 33.3 Puncture Site Right Radial ABG pH 7.45 ABG pCO2 42 ABG pO2 83 D ABG HCO3 29 H ABG O2 Saturation 98 ABG Base Excess 5 H FiO2 30 Sodium 149 H Potassium 4.0 Chloride 110 H Carbon Dioxide 28.4 Anion Gap 11 BUN 16 Creatinine 0.8 Estim Creat Clear Calc 80.8 eGFR > 60 BUN/Creatinine Ratio 20 Glucose 143 H Calculated Osmolality 299 H Calcium 8.2 L Corrected Calcium 8.8 Phosphorus 2.8 Magnesium 1.9 Total Bilirubin 0.4 AST 75 H ALT 92 H Alkaline Phosphatase 105 Total Protein 5.8 Albumin 3.2 L Globulin 2.6 Albumin/Globulin Ratio 1.2 ABG Interpretation ABG results: 11/03/24 11/03/24 11/03/24 11:20 14:11 17:06 ABG pH 7.35 7.34 L 7.20 L D ABG pCO2 21 L 20 L 45 D ABG pO2 193 H 82 L D 78 L ABG HCO3 12 L 11 L 16 L ABG O2 Saturation 100 H 96 91 ABG Base Excess -12 L -14 L -12 L VBG pH VBG pCO2 VBG pO2 VBG Base Excess 11/04/24 11/04/24 11/04/24 00:00 04:29 05:15 ABG pH 7.50 H D ABG pCO2 30 L D ABG pO2 109 H D ABG HCO3 23 ABG O2 Saturation 100 H ABG Base Excess 1 VBG pH 7.43 7.52 VBG pCO2 35 L 27 L VBG pO2 43 57 VBG Base Excess -1 0 07/10/25 07/11/25 07/11/25 04:49 03:40 21:45 ABG pH 7.48 H 7.41 ABG pCO2 35 43 ABG pO2 74 L D 108 D ABG HCO3 26 27 H ABG O2 Saturation 96 99 H ABG Base Excess 3 2 VBG pH 7.49 VBG pCO2 39 D VBG pO2 39 VBG Base Excess 6 H 11/07/24 11/08/24 11/09/24 05:59 04:19 04:11 ABG pH 7.49 H 7.48 H 7.44 ABG pCO2 39 38 40 ABG pO2 71 L D 77 L 63 L ABG HCO3 29 H 29 H 27 H ABG O2 Saturation 96 97 93 ABG Base Excess 6 H 5 H 3 VBG pH VBG pCO2 VBG pO2 VBG Base Excess 11/10/24 07:02 ABG pH 7.45 ABG pCO2 42 ABG pO2 83 D ABG HCO3 29 H ABG O2 Saturation 98 ABG Base Excess 5 H VBG pH VBG pCO2 VBG pO2 VBG Base Excess Quality Measures Quality Measures sepsis Current suspected stage: ruled out Possible source: pulmonary Blood cultures ordered: completed in ED Antibiotic ordered: No Assessment & Plan Assessment Current Active Medications: Generic Name Dose Route Start Last Admin Trade Name Freq PRN Reason Stop Dose Admin Acetaminophen 325 mg 11/05/24 09:48 Acetaminophen 325 Mg Tablet PO 12/03/24 15:31 Q6H PRN Fever >101.5 Albuterol/Ipratropium 3 ml 11/08/24 18:09 11/09/24 19:21 Albuterol/Ipratropium (Duoneb) Rt Anastacia 3 Ml Nebu INH 12/08/24 18:59 3 ml Q4HRRT PRN Administration wheezing Aspirin 81 mg 11/04/24 09:00 11/10/24 09:46 Aspirin 81 Mg Chew GT 12/04/24 08:59 81 mg QDAY BETO Administration Atorvastatin Calcium 40 mg 11/03/24 21:00 11/09/24 21:20 Atorvastatin Calcium 20 Mg Tablet PO 12/03/24 20:59 40 mg HS BETO Administration Folic Acid 1 mg 11/04/24 09:15 11/10/24 09:46 Folic Acid Inj 1 Mg/0.2 Ml IVP 12/04/24 09:14 1 mg QDAY BETO Administration Heparin Sodium (Porcine) 5,000 unit 11/05/24 14:00 11/07/24 05:01 Heparin Sod Inj 5000 Unit/Ml Vial SC 11/19/24 13:59 5,000 unit Q8HR BETO Administration Norepinephrine/Dextrose 8 mg in 250 mls @ 5.63 mls/hr 11/03/24 14:57 11/06/24 21:45 Levophed In D5w 8mg/250ml IV 12/03/24 14:56 0 mcg/kg/min .Q24H PRN 0 mls/hr PER PROTOCOL Titration Protocol 0.05 MCG/KG/MIN Propofol 1,000 mg in 100 mls @ 1.802 mls/hr 11/06/24 08:06 Diprivan Ivpb IV 12/06/24 08:05 .Q24H PRN PER PROTOCOL Protocol 5 MCG/KG/MIN Fentanyl Citrate 2,500 mcg in 250 mls @ 2.5 mls/hr 11/06/24 08:06 Sublimaze Inj 2,500 Mcg/250 Ml Bag IV 11/11/24 08:05 .Q24H PRN PER PROTOCOL Protocol 25 MCG/HR Phenylephrine HCl 40 mg/ 100 mls @ 0.821 mls/hr 11/06/24 21:30 11/07/24 07:25 Sodium Chloride IV 12/06/24 21:29 0 mcg/kg/min .Q24H PRN 0 mls/hr Per Cardiogenic Protocol Titration Protocol 0.1 MCG/KG/MIN Octreotide Acetate 1,000 mcg/ 102 mls @ 5.1 mls/hr 11/07/24 10:16 11/09/24 19:01 Sodium Chloride IV 11/12/24 10:15 50 mcg/hr .Q20H BETO 5.1 mls/hr Administration Protocol 50 MCG/HR Ferric Sodium Gluconate 125 mg 110 mls @ 110 mls/hr 11/08/24 17:15 11/09/24 09:57 / Sodium Chloride IV 12/08/24 17:14 110 mls/hr QDAY BETO Administration Lactulose 20 gm 11/07/24 14:00 11/10/24 05:58 Lactulose Syrup 20 Gm/30 Ml Udc NG 12/07/24 13:59 20 gm TID BETO Administration Protocol Metoprolol Succinate 25 mg 11/10/24 11:00 Metoprolol Succinate Xl 25 Mg Tabcr PO 12/10/24 10:59 QDAY BETO Midodrine 5 mg 11/07/24 14:00 11/10/24 05:58 Midodrine 5 Mg Tablet PO 12/07/24 13:59 5 mg TID BETO Administration Ondansetron HCl 4 mg 11/03/24 15:32 Ondansetron Inj 2 Mg/Ml Inj 2 Ml IVP 12/03/24 15:31 Q6H PRN NAUSEA OR VOMITING Protocol Pantoprazole Sodium 40 mg 11/05/24 21:00 11/10/24 09:46 Pantoprazole Inj 40 Mg Vial IVP 12/05/24 20:59 40 mg BID BETO Administration Rifaximin 550 mg 11/08/24 13:45 11/10/24 09:50 Rifaximin 550 Mg Tablet PO 11/15/24 13:44 550 mg BID BETO Administration Sennosides 1 tab 11/04/24 09:00 11/10/24 09:50 Senna Tablet PO 12/04/24 08:59 1 tab QDAY BETO Administration Protocol Sodium Chloride 3 ml 11/03/24 10:58 Sodium Chloride Rt Anastacia 0.9% 3 Ml Nebu INH 12/03/24 10:57 PRN PRN SOLN Plan Summary: Mr. Trejo is a 49-year-old male with past medical history of hypertension and personal history of esophageal cancer status post-treatment in remission who presented to [facility] emergency department on 11/03/2024 with a chief complaint of weakness and shortness of breath. Neuro #Acute encephalopathy most likely hepatic versus metabolic versus focal neurological deficit versus less likely anoxic encephalopathy #Alcohol withdrawal (resolved) #Questionable Warnicke encephalopathy #Generalized weakness #Demyelinating disease pattern on MRI - Patient is cachectic with temporal wasting, and BMI of 18.3 kg/m. Patient has been off of sedation for 3 days - Consider hepatic encephalopathy in the setting of alcohol use, Imaging showed irregular liver contour, Ammonia was 78 on presentation. has LGIB. - MRI of the head showed punctate foci with increased signal in the frontal parietal white matter, demyelinating disease pattern possible. Low likelihood of esophageal cancer metastasis. Plan: -Thiamine, folate and multivitamin - Lactulose 20 GM p.o. 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 3 times daily - Cardiology consulted, appreciate recommendations - Cardiology to consider PABLITO/cardiac cath - Lasix 20 mg IV x 1 #NSTEMI type II most likely type I - Troponin down trended - Cardiology consulted # Distributive shock, secondary to sepsis, septic shock secondary to aspiration pneumonia, resolved Pulmonary #Acute hypoxic respiratory failure secondary to pneumonia, respiratory failure in setting of shock #Status post extubation 11/10/2024 #Aspiration pneumonia Differential diagnosis: - Consider aspiration pneumonia in the presence of dysphagia due to history of esophageal cancer Diagnostic workup: - Initial ABG shows pH 7.35, pCO2 21, pO2 193, bicarb 12, patient on high flow nasal cannula in ED, significantly tachypneic, increased work of breathing, respiratory rate in 40s, accessory muscle use noted. - ABG 11/09/2024 pH 7.44 pCO2 40 pO2 63 HCO3 27 O2 saturation 93, CaO2 (oxygen content of arterial blood) 10.5 - Patient denies any sick contacts, although CTA shows significant right-sided pneumonia and left base pneumonia - Bedside flu, COVID negative, cocci IgM negative, MRSA nasal screen negative, Blood cultures negative Plan: - Patient completed treatment with IV Zosyn which was de-escalated to IV ceftriaxone - Legionella still pending Gastrointestinal #Decompensated cirrhosis 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 #Transaminitis #Suspected hepatic encephalopathy #GI bleed workup #Melena Diagnostic workup: - CTA abdomen showed evidence of cirrhosis - Per the patient's family member the patient consumes 2 bottles of hard alcohol on a daily basis in addition to beer, Hepatitis panel negative - Patient remains GCS 10T after 24 hours of being off sedation, consider hepatic encephalopathy - CT chest abdomen pelvis showed cirrhosis - AST 103 ALT 114 11/09/2024, has been downtrending - MELD score of 7, 1.9% estimated 3-month mortality - Child-Pug Score: 8 - Official liver ultrasound today shows ascites - EGD 11/07/2024 showed grade 1 esophageal varices, 2+ esophageal varices not large enough for band ligation Plan: - Continue folate and thiamine - Lactulose 20 GM p.o. 3 times daily, titrate to 4-5 bowel movements - Continue octreotide gtt for 5 days started on the 11/07/2024 ends in 11/12/2024 - Continue Protonix twice daily - Hb daily monitor #Personal history of esophageal cancer, in remission Differential diagnosis: Patient is status post esophagectomy Diagnostic workup: - Patient reported self history of esophageal cancer reports completed treatment heart disease in remission - History of esophagectomy, there is suspicion of underlying dysphagia Follow-up: - Resume tube feeds - Speech eval after extubation is planned #Large right inguinal hernia #Dilated bowel loops Differential diagnosis: Incarcerated hernia. Diagnostic workup: - On physical exam hernia is reducible, low suspicion of incarceration - CTA abdomen pelvis shows large right inguinal hernia noted on imaging as well, no radiological signs of incarceration Treatment: - General Surgery consulted, no surgical intervention needed in this admission, can follow up o/p Renal/Genitourinary #Hypernatremia Differential diagnosis: Hypovolemia - Was given IV fluid in the emergency department in addition to Lasix Diagnostic workup: - Sodium is 149 11/10/2024 - Calculated free water deficit is -2.16 L Plan: - Continue to monitor urine output - Follow sodium in a.m. #Hypokalemia (Resolved) #Lactic acidosis, (Resolved) #High anion gap metabolic acidosis, (Resolved) Endocrine No active problems Hematology #Leukocytosis #Low-grade temperature (Resolving) Diagnostic workup: - WBC 19 from 16.5 - Temperature up to 100.2, improving - Consider acute phase reaction in combination with stress dose steroids Treatment: - Follow CBC #Normocytic normochromic anemia versus iron deficiency anemia Differential diagnosis: Nutritional deficiency, in the setting of sepsis, GI bleed, low suspicion of hemolysis Diagnostic workup: - Hemoglobin 8.1 on presentation - Hemoglobin 8.3 hematocrit 27.3 11/09/2024 - Iron level 19 on 11/07/2024 Treatment: - Ferric Sod Glut 125 mg received 11/08/2024 - Follow CBC in a.m. - Continue folic acid and multivitamin #Thrombocytosis, (Resolved) Infectious Disease #Pneumonia Diagnostic workup: - Chest x-ray significant for bibasilar infiltrates Plan: -Completed treatment with Zosyn and ceftriaxone Integumentary No active problems DVT prophylaxis: SCDs GI prophylaxis: IV Protonix twice a day Diet: NPO Tubes: Endotracheal tube Lines: Peripheral IV, right IJ triple-lumen Code status: Full code Dispo: Extubated, will monitor overnight Patient was seen and discussed with my attending Dr. Kyleigh Darby PGY2 Attending Provider Attestation/Addendum Patient seen examined resident, agree with above. In brief this a 49-year-old gentleman who was originally admitted for acute respiratory failure and found to have alcohol withdrawal. He has been off all sedation for several days and today appears to have a GCS of approximately 10T. Weaning parameters were obtained and were found to be within acceptable parameters. The patient was extubated. He does have very coarse breath sounds and requires frequent suctioning. CPT was ordered. His MRI of the brain was obtained and was found to have question of demyelination. Given his profound weakness, ongoing encephalopathy and imaging changes neurology will be consulted. Patient has noted to have heart failure and was given a dose of diuretics today he does appear to have improved urinary output with this. He is being followed by cardiology. He does have ABBI physiology noted. He is on midodrine as well as beta-jordan. Will titrate as able. Overall gradual improvement. Physical exam shows a chronically ill appearing thin cachectic male frail with generalized weakness, breath sounds are coarse with few scattered crackles at bases occasional scattered expiratory wheeze, heart rate regular and rhythmic, murmur present, pulses palpable, no clubbing, no mottling. Given his tenuous respiratory status postextubation we will continue in the ICU for close monitoring. Case discussed with ICU team Labs, imaging and records reviewed Approximately 38 critical care medicine cart evaluation, exam, review, dimension, discussion and formulation of plan of care critically ill patient's with acute hypoxic respiratory failure at high risk of further ongoing decompensation.
--- NOTE | 2024-11-10 13:57 | PD.RESCONSUL ---
HPI Data of Consult Requesting Physician: Kyleigh Chaudhary MD Admitting Provider: La Diaz MD Attending Provider: Kyleigh Chaudhary MD Primary Care Provider: Physician No Primary/Family Consult Narrative History of present illness: Mr. Pressley is a 49-year-old male with past medical history of hypertension, esophageal cancer status post treatment in remission, alcohol use disorder, HFrEF who presented to the ED on 11/03 with generalized weakness and progressive shortness of breath. Patient reported that he had generalized weakness and fatigue for the past 2 weeks prior to hospitalization. Patient was found to have lactic acidosis, metabolic acidosis with compensated respiratory alkalosis. Patient was intubated secondary to increased work of breathing and admitted to ICU for acute hypoxic respiratory failure secondary to distributive shock requiring pressors. Patient has had multiple black bowel movements, hemoglobin stable. TTE showed Takotsubo cardiomyopathy with LVEF 35 to 40%. Per chart review patient drinks at least 2 large bottles of hard liquor along with beer on a daily basis. Patient required high doses of sedation, started on phenobarbital every 6 hours, chlordiazepoxide 50 3 times daily, Versed 2 mg as needed for anxiety,, IV thiamine and folic acid. Patient off sedation on 11/07, lethargic. EGD showed nonbleeding esophageal varices, continued octreotide, lactulose, rifaximin, resumed aspirin. 11/08 patient continues to be to be off sedation and was able to follow commands, open eyes to voice, unable to move bilateral upper extremities. Patient was successfully extubated on 11/10 and transition to oxygen mask. On examination patient was able to follow commands but was unable to vocalize concerns due to excess secretions causing persistent coughing. cc:: cc: Kyleigh Chaudhary MD Review of Systems Review of Systems Narrative Review of Systems: Unable to assess due to patient having difficulties vocalizing after extubation and excess secretions Exam Vital Signs Temp Pulse Resp BP Pulse Ox O2 Del Method O2 Flow Rate 97.5 F 121 H 34 H 110/59 L 96 Mechanical Ventilation 65 11/10/24 04:00 11/10/24 13:00 11/10/24 13:00 11/10/24 13:00 11/10/24 13:00 11/09/24 08:00 11/04/24 00:00 FiO2 30 11/10/24 10:40 Narrative Exam General: No acute distress, cachectic, temporal wasting, diffuse muscle atrophy HENT: Normocephalic, atraumatic, normal hearing, excess secretions requiring suction Neck: Supple, non-tender, no JVD Lungs: On oxy mask, symmetric chest rise Heart: Peripheral pulses intact bilaterally Abdomen: Soft, non-distended Neurologic: Patient is awake but unable to assess orientation due to difficulty vocalizing after extubation and excess secretions. Follows commands, opens eyes to voice CN II-XII grossly intact B/L UE and LE 3/5 (able to lift leg against gravity but easily fatigued) DTR 2+ bilaterally and symmetrical throughout Bilateral lower extremity sustained clonus (10 beats) Results Labs 11/11/24 05:00 11/11/24 05:00 Labs: Short CBC 11/10/24 Range/Units 04:22 WBC 16.4 H (3.8-10.6) Thou/mm3 Hgb 8.3 L (13.5-16.0) g/dL Hct 26.2 L (41.0-53.0) % Plt Count 287 (140-440) Thou/mm3 BMP 11/10/24 04:22 Sodium 149 H Potassium 4.0 Chloride 110 H Carbon Dioxide 28.4 BUN 16 Creatinine 0.8 Glucose 143 H Calcium 8.2 L Liver Function 11/10/24 Range/Units 04:22 Total Bilirubin 0.4 (0.3-1.2) mg/dL AST 75 H (0-34) U/L ALT 92 H (10-49) U/L Alkaline Phosphatase 105 (46-116) U/L Albumin 3.2 L (3.5-5.0) gm/dL ABG Interpretation ABG results: 11/03/24 11/03/24 11/03/24 11:20 14:11 17:06 ABG pH 7.35 7.34 L 7.20 L D ABG pCO2 21 L 20 L 45 D ABG pO2 193 H 82 L D 78 L ABG HCO3 12 L 11 L 16 L ABG O2 Saturation 100 H 96 91 ABG Base Excess -12 L -14 L -12 L VBG pH VBG pCO2 VBG pO2 VBG Base Excess 11/04/24 11/04/24 11/04/24 00:00 04:29 05:15 ABG pH 7.50 H D ABG pCO2 30 L D ABG pO2 109 H D ABG HCO3 23 ABG O2 Saturation 100 H ABG Base Excess 1 VBG pH 7.43 7.52 VBG pCO2 35 L 27 L VBG pO2 43 57 VBG Base Excess -1 0 11/05/24 11/06/24 11/06/24 04:49 03:40 21:45 ABG pH 7.48 H 7.41 ABG pCO2 35 43 ABG pO2 74 L D 108 D ABG HCO3 26 27 H ABG O2 Saturation 96 99 H ABG Base Excess 3 2 VBG pH 7.49 VBG pCO2 39 D VBG pO2 39 VBG Base Excess 6 H 11/07/24 11/08/24 11/09/24 05:59 04:19 04:11 ABG pH 7.49 H 7.48 H 7.44 ABG pCO2 39 38 40 ABG pO2 71 L D 77 L 63 L ABG HCO3 29 H 29 H 27 H ABG O2 Saturation 96 97 93 ABG Base Excess 6 H 5 H 3 VBG pH VBG pCO2 VBG pO2 VBG Base Excess 11/10/24 07:02 ABG pH 7.45 ABG pCO2 42 ABG pO2 83 D ABG HCO3 29 H ABG O2 Saturation 98 ABG Base Excess 5 H VBG pH VBG pCO2 VBG pO2 VBG Base Excess Quality Measures Quality Measures sepsis Current suspected stage: ruled out Possible source: pulmonary Blood cultures ordered: completed in ED Antibiotic ordered: Yes Medications Home Medications and Allergies Allergies Allergy/AdvReac Type Severity Reaction Status Date / Time No Known Allergies Allergy Verified 11/03/24 10:13 Visit Medications Acetaminophen (Acetaminophen 325 Mg Tablet) 325 mg PO Q6H PRN PRN Reason: Fever >101.5 Stop: 12/03/24 15:31 Albuterol/Ipratropium (Albuterol/Ipratropium (Duoneb) Rt Anastacia 3 Ml Nebu) 3 ml INH Q4HRRT PRN PRN Reason: wheezing Stop: 12/08/24 18:59 Last Admin: 11/09/24 19:21 Dose: 3 ml Aspirin (Aspirin 81 Mg Chew) 81 mg GT QDAY BETO Stop: 12/04/24 08:59 Last Admin: 11/10/24 09:46 Dose: 81 mg Atorvastatin Calcium (Atorvastatin Calcium 20 Mg Tablet) 40 mg PO HS BETO Stop: 12/03/24 20:59 Last Admin: 11/09/24 21:20 Dose: 40 mg Folic Acid (Folic Acid Inj 1 Mg/0.2 Ml) 1 mg IVP QDAY [facility] Stop: 12/04/24 09:14 Last Admin: 11/10/24 09:46 Dose: 1 mg Heparin Sodium (Porcine) (Heparin Sod Inj 5000 Unit/Ml Vial) 5,000 unit SC Q8HR [facility] Stop: 11/19/24 13:59 Last Admin: 11/07/24 05:01 Dose: 5,000 unit Norepinephrine/Dextrose (Levophed In D5w 8mg/250ml) 8 mg in 250 mls @ 5.63 mls/hr IV .Q24H PRN; Protocol PRN Reason: PER PROTOCOL Stop: 12/03/24 14:56 Last Titration: 11/06/24 21:45 Dose: 0 mcg/kg/min, 0 mls/hr Propofol (Diprivan Ivpb) 1,000 mg in 100 mls @ 1.802 mls/hr IV .Q24H PRN; Protocol PRN Reason: PER PROTOCOL Stop: 12/06/24 08:05 Fentanyl Citrate (Sublimaze Inj 2,500 Mcg/250 Ml Bag) 2,500 mcg in 250 mls @ 2.5 mls/hr IV .Q24H PRN; Protocol PRN Reason: PER PROTOCOL Stop: 11/11/24 08:05 Phenylephrine HCl 40 mg/ (Sodium Chloride) 100 mls @ 0.821 mls/hr IV .Q24H PRN; Protocol PRN Reason: Per Cardiogenic Protocol Stop: 12/06/24 21:29 Last Titration: 11/07/24 07:25 Dose: 0 mcg/kg/min, 0 mls/hr Octreotide Acetate 1,000 mcg/ (Sodium Chloride) 102 mls @ 5.1 mls/hr IV .Q20H BETO; Protocol Stop: 11/12/24 10:15 Last Admin: 11/09/24 19:01 Dose: 50 mcg/hr, 5.1 mls/hr Ferric Sodium Gluconate 125 mg (/ Sodium Chloride) 110 mls @ 110 mls/hr IV QDAY [facility] Stop: 12/08/24 17:14 Last Admin: 11/09/24 09:57 Dose: 110 mls/hr Lactulose (Lactulose Syrup 20 Gm/30 Ml Udc) 20 gm NG TID [facility]; Protocol Stop: 12/07/24 13:59 Last Admin: 11/10/24 05:58 Dose: 20 gm Metoprolol Succinate (Metoprolol Succinate Xl 25 Mg Tabcr) 25 mg PO QDAY [facility] Stop: 12/10/24 10:59 Midodrine (Midodrine 5 Mg Tablet) 5 mg PO TID [facility] Stop: 12/07/24 13:59 Last Admin: 11/10/24 05:58 Dose: 5 mg Ondansetron HCl (Ondansetron Inj 2 Mg/Ml Inj 2 Ml) 4 mg IVP Q6H PRN; Protocol PRN Reason: NAUSEA OR VOMITING Stop: 12/03/24 15:31 Pantoprazole Sodium (Pantoprazole Inj 40 Mg Vial) 40 mg IVP BID [facility] Stop: 12/05/24 20:59 Last Admin: 11/10/24 09:46 Dose: 40 mg Rifaximin (Rifaximin 550 Mg Tablet) 550 mg PO BID [facility] Stop: 11/15/24 13:44 Last Admin: 11/10/24 09:50 Dose: 550 mg Sennosides (Senna Tablet) 1 tab PO QDAY [facility]; Protocol Stop: 12/04/24 08:59 Last Admin: 11/10/24 09:50 Dose: 1 tab Sodium Chloride (Sodium Chloride Rt Anastacia 0.9% 3 Ml Nebu) 3 ml INH PRN PRN PRN Reason: SOLN Stop: 12/03/24 10:57 Discontinued Medications Acetaminophen (Acetaminophen 325 Mg Tablet) 650 mg PO Q6H PRN PRN Reason: Fever >101.5 Stop: 12/03/24 15:31 Albuterol (Albuterol Rt 2.5 Mg/3 Ml Nebu) 10 mg INH X1 ONE Stop: 11/03/24 10:30 Last Admin: 11/03/24 11:26 Dose: Not Given Albuterol (Albuterol Rt 2.5 Mg/0.5 Ml Nebu) 10 mg INH X1 ONE Stop: 11/03/24 10:59 Last Admin: 11/03/24 11:08 Dose: 10 mg Albuterol/Ipratropium (Albuterol/Ipratropium (Duoneb) Rt Anastacia 3 Ml Nebu) 3 ml INH X1 ONE Stop: 11/03/24 12:35 Last Admin: 11/03/24 12:56 Dose: 3 ml Aspirin (Aspirin 325 Mg Tablet) 325 mg PO X1 ONE Stop: 11/03/24 15:38 Last Admin: 11/03/24 20:05 Dose: Not Given Aspirin (Aspirin 325 Mg Tablet) 325 mg PO X1 ONE Stop: 11/04/24 06:17 Last Admin: 11/04/24 06:29 Dose: 325 mg Atorvastatin Calcium (Atorvastatin Calcium 20 Mg Tablet) 40 mg PO X1 ONE Stop: 11/03/24 15:38 Last Admin: 11/03/24 20:05 Dose: Not Given Carvedilol (Carvedilol 3.125 Mg Tablet) 3.125 mg NG X1 ONE Stop: 11/06/24 09:28 Last Admin: 11/06/24 10:01 Dose: 3.125 mg Chlordiazepoxide HCl (Chlordiazepoxide Hcl 25 Mg Capsule) 50 mg PO Q8HR BETO Stop: 11/06/24 06:01 Last Admin: 11/05/24 10:06 Dose: 50 mg Chlordiazepoxide HCl (Chlordiazepoxide Hcl 25 Mg Capsule) 50 mg NG Q8HR BETO Stop: 11/06/24 06:01 Last Admin: 11/06/24 05:30 Dose: 50 mg Phenobarbital Sodium 130 mg/ (Sodium Chloride 12 ml) 0 mg IVP Q6H BETO Stop: 11/19/24 13:14 Etomidate (Etomidate Inj 2 Mg/Ml Vial 10 Ml) 20 mg IVP X1 ONE Stop: 11/03/24 13:48 Last Admin: 11/03/24 14:52 Dose: 20 mg Furosemide (Furosemide 40 Mg Tablet) 40 mg PO X1 ONE Stop: 11/03/24 12:35 Last Admin: 11/03/24 12:54 Dose: Not Given Furosemide (Furosemide Inj 10 Mg/Ml 4ml Vial) 40 mg IVP X1 ONE Stop: 11/03/24 13:23 Last Admin: 11/03/24 13:28 Dose: Not Given Furosemide (Furosemide Inj 10 Mg/Ml 4ml Vial) 20 mg IVP X1 ONE Stop: 11/03/24 13:23 Last Admin: 11/03/24 13:34 Dose: 20 mg Furosemide (Furosemide Inj 10 Mg/Ml 4ml Vial) 20 mg IVP X1 ONE Stop: 11/03/24 14:32 Last Admin: 11/03/24 15:51 Dose: Not Given Furosemide (Furosemide Inj 10 Mg/Ml Vial 2 Ml) 20 mg IVP X1 ONE Stop: 11/06/24 09:28 Last Admin: 11/06/24 10:01 Dose: 20 mg Furosemide (Furosemide Inj 10 Mg/Ml 4ml Vial) 40 mg IVP X1 ONE Stop: 11/09/24 12:25 Last Admin: 11/09/24 15:32 Dose: 40 mg Furosemide (Furosemide Inj 10 Mg/Ml Vial 2 Ml) 20 mg IVP X1 ONE Stop: 11/10/24 13:36 Heparin Sodium (Porcine) (Heparin Sod Inj 5000 Unit/Ml Vial) 3,300 unit 60 unit/kg (3300 unit) IV PRN ONE Stop: 11/03/24 18:23 Last Admin: 11/03/24 18:28 Dose: 3,300 unit Heparin Sodium (Porcine) (Heparin Sod Inj 5000 Unit/Ml Vial) 1,600 unit IVP X1 ONE Stop: 11/05/24 04:06 Last Admin: 11/05/24 04:28 Dose: 1,600 unit Hydrocortisone Sodium Succinate (Hydrocortisone Sod Succ Inj 100 Mg Vial) 50 mg IV Q6HR BETO Stop: 12/04/24 11:59 Last Admin: 11/05/24 05:00 Dose: 50 mg Lactated Ringer's (Lactated Ringers) 2,052 mls @ 2,052 mls/hr 30 ml/kg infuse over 60 min (2052 ml) IV .Q1H ONE Stop: 11/03/24 11:32 Last Infusion: 11/03/24 12:07 Dose: Infused Ceftriaxone Sodium 2 gm/ (Sodium Chloride) 50 mls @ 100 mls/hr IV X1 ONE Stop: 11/03/24 11:05 Last Infusion: 11/03/24 12:07 Dose: Infused Doxycycline Hyclate 100 mg/ (Sodium Chloride) 100 mls @ 100 mls/hr IV X1 ONE Stop: 11/03/24 11:35 Last Infusion: 11/03/24 13:25 Dose: Infused Propofol (Diprivan Ivpb) 1,000 mg in 100 mls @ 1.802 mls/hr IV .Q24H PRN; Protocol PRN Reason: PER PROTOCOL Stop: 12/03/24 13:47 Last Titration: 11/06/24 08:00 Dose: 0 mcg/kg/min, 0 mls/hr Sodium Chloride (Ns) 500 mls @ 999 mls/hr IV .Q31M ONE Stop: 11/03/24 15:31 Last Admin: 11/03/24 15:01 Dose: Not Given Lactated Ringer's (Lactated Ringers) 500 mls @ 999 mls/hr IV .Q31M ONE Stop: 11/03/24 15:32 Last Infusion: 11/03/24 16:00 Dose: Infused Fentanyl Citrate (Sublimaze Inj 2,500 Mcg/250 Ml Bag) 2,500 mcg in 250 mls @ 2.5 mls/hr IV .Q24H PRN; Protocol PRN Reason: PER PROTOCOL Stop: 11/08/24 15:26 Last Titration: 11/06/24 08:00 Dose: 0 mcg/hr, 0 mls/hr Heparin Sodium/Dextrose (Heparin In D5w Ivpb) 25,000 unit in 250 mls @ 7.207 mls/hr IV .Q24H BETO; Protocol Stop: 11/17/24 15:44 Last Admin: 11/03/24 21:21 Dose: Not Given Piperacillin Sod/Tazobactam (Sod 4.5 gm/ Sodium Chloride) 100 mls @ 200 mls/hr IV X1 ONE Stop: 11/03/24 16:29 Last Infusion: 11/03/24 16:30 Dose: Infused Piperacillin/Tazobactam/Dextrose (Zosyn) 3.375 gm in 50 mls @ 12.5 mls/hr IV Q8HR BETO Stop: 11/10/24 21:59 Last Infusion: 11/08/24 06:12 Dose: Infused Vancomycin HCl 1,500 mg/ (Sodium Chloride) 500 mls @ 333.333 mls/hr IV X1 ONE Stop: 11/03/24 18:29 Last Admin: 11/03/24 21:13 Dose: Not Given Vancomycin/Sodium Chloride (Vancomycin/Ns 1 Gm Ivpb) 200 mls @ 200 mls/hr IV Q24H BETO Stop: 11/11/24 16:59 Last Admin: 11/04/24 17:46 Dose: 200 mls/hr Heparin Sodium/Dextrose (Heparin In D5w Ivpb) 25,000 unit in 250 mls @ 6.576 mls/hr IV .Q24H BETO; Protocol Stop: 11/17/24 15:44 Last Titration: 11/05/24 08:05 Dose: 0 units/kg/hr, 0 mls/hr Vasopressin/Sodium Chloride (Vasostrict/Ns Ivpb) 20 unit in 100 mls @ 9 mls/hr IV .Q11H7M PRN; Protocol PRN Reason: PER PROTOCOL Stop: 12/03/24 18:36 Last Titration: 11/04/24 11:20 Dose: 0 unit/min, 0 mls/hr Vancomycin/Sodium Chloride (Vancomycin/Ns 1 Gm Ivpb) 200 mls @ 200 mls/hr IV X1 ONE Stop: 11/03/24 22:29 Last Admin: 11/03/24 22:00 Dose: 200 mls/hr Phenylephrine HCl 40 mg/ (Sodium Chloride) 100 mls @ 4.095 mls/hr IV .Q24H PRN; Protocol PRN Reason: Per Sepsis Protocol Stop: 12/04/24 09:03 Last Titration: 11/04/24 18:30 Dose: 0 mcg/kg/min, 0 mls/hr Vancomycin/Sodium Chloride (Vancomycin/Ns 1 Gm Ivpb) 200 mls @ 120 mls/hr IV Q12H BETO; Protocol Stop: 11/12/24 09:59 Potassium Phosphate (Pot Phos 15 Mmol In Ns 250 Ml) 15 mmol in 250 mls @ 62.5 mls/hr IV X1 ONE Stop: 11/05/24 11:55 Last Infusion: 11/05/24 15:41 Dose: Infused Calcium Gluconate/Sodium Chloride (Calcium Gluc/Ns 1000mg Ivpb) 1,000 mg in 50 mls @ 50 mls/hr IV X1 ONE Stop: 11/06/24 11:24 Last Infusion: 11/06/24 11:40 Dose: Infused Ceftriaxone Sodium/Dextrose (Rocephin/D5w 1gm Iv Premix) 1 gm in 50 mls @ 100 mls/hr IV QDAY BETO Stop: 11/14/24 09:27 Last Admin: 11/10/24 09:46 Dose: 100 mls/hr Lactated Ringer's (Lactated Ringers) 250 mls @ 999 mls/hr IV .Q16M ONE Stop: 11/07/24 10:15 Last Infusion: 11/08/24 06:12 Dose: Infused Lactated Ringer's (Lactated Ringers) 250 mls @ 999 mls/hr IV .Q16M ONE Stop: 11/07/24 10:30 Last Infusion: 11/08/24 06:12 Dose: Infused Lactated Ringer's (Lactated Ringers) 250 mls @ 999 mls/hr IV .Q16M ONE Stop: 11/07/24 14:44 Last Infusion: 11/08/24 06:13 Dose: Infused Magnesium Sulfate (Magnesium Sulfate Ivpb) 2 gm in 50 mls @ 25 mls/hr IV X1 ONE Stop: 11/10/24 09:17 Last Admin: 11/10/24 09:50 Dose: 25 mls/hr Lactulose (Lactulose Syrup 20 Gm/30 Ml Udc) 20 gm PO TID BETO; Protocol Stop: 12/07/24 08:59 Last Admin: 11/07/24 09:48 Dose: Not Given Lactulose (Lactulose Syrup 20 Gm/30 Ml Udc) 20 gm PO TID BETO; Protocol Stop: 12/07/24 08:59 Lactulose (Lactulose Syrup 20 Gm/30 Ml Udc) 20 gm NG X1 ONE; Protocol Stop: 11/07/24 10:23 Last Admin: 11/07/24 10:27 Dose: 20 gm Lisinopril (Lisinopril 2.5 Mg Tablet) 2.5 mg NG X1 ONE Stop: 11/06/24 09:28 Last Admin: 11/06/24 10:02 Dose: 2.5 mg Lorazepam (Lorazepam 2 Mg/Ml Vial) 0.5 mg IVP X1 ONE Stop: 11/03/24 12:42 Last Admin: 11/03/24 13:28 Dose: Not Given Methylprednisolone Sodium Succinate (Methylprednisolone Sod Succ 62.5 Mg/Ml 2ml Vial) 125 mg IVP X1 ONE Stop: 11/03/24 10:30 Last Admin: 11/03/24 10:55 Dose: 125 mg Methylprednisolone Sodium Succinate (Methylprednisolone Sod Succ 62.5 Mg/Ml 2ml Vial) 125 mg IVP X1 ONE Stop: 11/03/24 12:35 Last Admin: 11/03/24 12:55 Dose: 125 mg Metoprolol Tartrate (Metoprolol Tartrate Inj 1 Mg/Ml Amp 5 Ml) 2.5 mg IVP X1 ONE Stop: 11/07/24 08:22 Last Admin: 11/07/24 08:41 Dose: 2.5 mg Midazolam HCl (Midazolam Inj 1 Mg/Ml Vial 2 Ml) 2 mg IVP Q2HR PRN PRN Reason: Anxiety or Agitation Stop: 11/08/24 17:59 Last Admin: 11/05/24 14:15 Dose: 2 mg Midazolam HCl (Midazolam Inj 1 Mg/Ml Vial 2 Ml) 2 mg IVP Q2M PRN PRN Reason: Moderate Sedation Stop: 11/07/24 19:53 Octreotide Acetate (Octreotide Acet Inj 50 Mcg/Ml Vial) 50 mcg IV X1 ONE Stop: 11/07/24 10:17 Last Admin: 11/07/24 10:51 Dose: 50 mcg Pantoprazole Sodium (Pantoprazole 40 Mg Tablet) 40 mg PO QDAY [facility] Stop: 12/03/24 15:44 Last Admin: 11/03/24 21:22 Dose: Not Given Pantoprazole Sodium (Pantoprazole Inj 40 Mg Vial) 40 mg IVP QDAY [facility] Stop: 12/03/24 15:44 Last Admin: 11/05/24 08:26 Dose: 40 mg Pharmacy Consult (Vancomycin Pharmacy To Dose 1 Each Each) 1 each IV QDAY PRN PRN Reason: rx Stop: 12/03/24 15:44 Phenobarbital Sodium (Phenobarbital Inj 130 Mg/1 Ml Vial) 130 mg IVP X1 ONE Stop: 11/05/24 10:31 Last Admin: 11/05/24 10:25 Dose: 130 mg Phenobarbital Sodium (Phenobarbital Inj 130 Mg/1 Ml Vial) 130 mg IVP Q6H BETO Stop: 11/07/24 01:31 Last Admin: 11/06/24 08:40 Dose: 130 mg Potassium Chloride (Potassium Chloride 10% 20 Meq/15 Ml Udc) 40 meq NG X1 ONE Stop: 11/07/24 07:11 Last Admin: 11/07/24 07:39 Dose: 40 meq Rocuronium [place] (Rocuronium Inj 10 Mg/Ml Vial 10 Ml) 50 mg IV X1 ONE Stop: 11/03/24 13:48 Last Admin: 11/03/24 14:52 Dose: 50 mg Thiamine HCl (Thiamine Inj 100 Mg/Ml Vial 2 Ml) 200 mg IVP BID BETO Stop: 11/09/24 09:14 Last Admin: 11/09/24 09:58 Dose: 200 mg Assessment & Plan Plan # Bilateral upper extremity weakness, improving # Generalized weakness # Acute encephalopathy Initial presentation in ED: generalized weakness x2 weeks, AMS, increased work of breathing BMI of 18.3 kg/m, cachectic, diffuse muscle atrophy Patient unable to move upper extremities bilaterally when off sedation on 11/08, now on 11/10 post-extubation, left upper extremity 2/5, right upper extremity 4/5 Lactic acid: 16 --> 13.1 --> 3.5 --> 2.9 UA negative, positive for hyaline casts. Salicylate level less than 3, UDS negative, EtOH less than 3, cocci IgM and IgG negative, hepatitis A/B/C nonreactive. B12 WNL 699, folate WNL 13.89, TSH 1.66 WNL, free T40.51 Low. Pro-Jonny 1.93 --> 4.24. TTE showed moderate left ventricle systolic dysfunction, severe mitral regurgitation, some LVOT obstruction. C/F Takotsubo cardiomyopathy. CT head without contrast 11/07: Negative for acute hemorrhage, midline shift, mass effect. Diffuse cortical atrophy. MRI brain without contrast 11/09: Punctate foci site in frontal parietal b/l white matter on FLAIR, non-specific, chronic Acute encephalopathy DDX: infectious (PNA), hypoxia, alcohol withdrawal, hepatic encephalopathy, shock (septic/distributive vs hypovolemic), metabolic (lactic acidosis) Plan: - Pending EEG read - No need for further workup as patient presentation improving - Continue thiamine, folate - Pending CK, AChR Ab (myasthenia gravis) # Alcohol withdrawal, resolved Hx: EtOH use disorder, drinks at least 2 large bottles of hard liquor along with beer on a daily basis Patient given phenobarbital, Versed, chlordiazepoxide. Required high levels of sedation for agitation while intubated Plan: - Management per primary team #HFrEF, EF 35 to 40% #Suspicion of Takotsubo cardiomyopathy #Possible LVOT obstruection 2/2 [facility] Echo 11/03/2024 LVEF 35 to 40%, decreased apical motion, moderate left ventricle systolic dysfunction, severe mitral regurgitation, some LVOT obstruction. BNP high 2306. Plan: -Management per primary #NSTEMI type II most likely type I Troponin 4.326 --> 4.32 --> 3.786 Plan: - Management per primary # Distributive shock, secondary to sepsis, septic shock secondary to aspiration pneumonia, resolved Plan: - Management per primary team #Acute hypoxic respiratory failure secondary to pneumonia, respiratory failure in setting of shock #Status post extubation 11/10/2024 #Aspiration pneumonia DDX: aspiration pneumonia in the presence of dysphagia due to history of esophageal cancer Flu, COVID negative, cocci IgM negative, MRSA nasal screen negative, Blood cultures negative CTA: significant right-sided pneumonia and left base pneumonia Plan: - Patient completed treatment with IV Zosyn which was de-escalated to IV ceftriaxone - Pending Legionella #Decompensated cirrhosis 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 #Transaminitis #Suspected hepatic encephalopathy #GI bleed workup #Melena CTA abdomen showed evidence of cirrhosis MELD score of 7, 1.9% estimated 3-month mortality Child-Pug Score: 8 Liver ultrasound shows ascites EGD 11/07/2024 showed grade 1 esophageal varices, 2+ esophageal varices not large enough for band ligation Plan: - Management per primary -folate, thiamine, lactulose, octreotide drip (11/07 - 11/12), Protonix, daily CBC for hemoglobin monitoring #Hx esophageal cancer, in remission s/p esophagectomy Suspicion of underlying dysphagia Follow-up: - Pending speech eval - Management per primary #Large right inguinal hernia #Dilated bowel loops Hernia is reducible, low suspicion of incarceration CTA abdomen pelvis shows large right inguinal hernia noted on imaging as well, no radiological signs of incarceration Plan: - Management per primary team - General Surgery consulted, no surgical intervention needed in this admission, can follow up o/p #Hypernatremia Plan: - Management per primary Hematology #Leukocytosis, downtrending Initial WBC: 38.2 Plan: - Management per primary -Daily CBC #Normocytic normochromic anemia versus iron deficiency anemia Initial hgb: 8.8 DDX: Nutritional deficiency, in the setting of sepsis, GI bleed, low suspicion of hemolysis Plan: - Management per primary Discussed with Dr. Yifan Vargas, PGY1 Attending Provider Attestation/Addendum I personally have seen and examined the patient at the bedside and I agreed with the resident's findings, assessment and plan of care. 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 MRI brain showing nonspecific white matter changes and not suggestive of demyelination. However we ordered acetylcholine receptor antibodies, CPK to rule out secondary causes including myasthenia gravis and inflammatory myopathy. If weakness persist even after physical therapy, we will consider doing EMG nerve conduction study of both upper and lower extremities as an outpatient.
[2024-11-10] MEDS: METOPROLOL SUCCINATE XL 25 MG TABCR PO (14:30)
[2024-11-10] MEDS: FUROSEMIDE INJ 10 MG/ML VIAL 2 ML 20 MG IVP (14:31)
--- NOTE | 2024-11-10 16:53 | PC.SS ---
Update: Patient extubated today. Patient currently on oxy mask 15L. Patient failed swallow evaluation. NG tube remains in place. Patient requiring deep suctions to address secretions. Patient is not receiving any drips.
[2024-11-10] MEDS: OCTREOTIDE ACET INJ 1,000 MCG in SODIUM CHLORIDE 0.9% 100 ML 5.1 MCG IV (18:30)
--- NOTE | 2024-11-10 20:39 | PD.IMPROG ---
Documentation for date of: 11/10/24 Subjective Subjective Interval history: Hemoglobin hematocrit 8.3 and 26.2 Extubated Somewhat more alert Exam Vital Signs Temp Pulse Resp BP Pulse Ox O2 Del Method O2 Flow Rate 98.0 F 105 H 25 H 102/63 99 Oxy Mask 5 11/10/24 17:00 11/10/24 19:19 11/10/24 19:19 11/10/24 17:00 11/10/24 19:19 11/10/24 17:00 11/10/24 19:19 FiO2 30 11/10/24 10:40 Objective Labs 11/10/24 04:22 11/10/24 04:22 Labs: Laboratory Results - last 24 hr 11/10/24 11/10/24 04:22 07:02 WBC 16.4 H RBC 2.69 L Hgb 8.3 L Hct 26.2 L MCV 97 MCH 30.9 MCHC 31.7 RDW Std Deviation 65.3 H Plt Count 287 Neut % (Auto) 74 Lymph % (Auto) 8 L Nolan % (Auto) 13 H Eos % (Auto) 4 Baso % (Auto) 0 Neut # (Auto) 12.1 H Lymph # (Auto) 1.4 Nolan # (Auto) 2.1 H Eos # (Auto) 0.6 H Baso # (Auto) 0.0 Immature Gran # (Auto) 0.22 H Absolute Nucleated RBC 0.14 H Immature Gran % 1 H Nucleated RBC % 1 H PT 11.9 INR 1.1 APTT 33.3 Puncture Site Right Radial ABG pH 7.45 ABG pCO2 42 ABG pO2 83 D ABG HCO3 29 H ABG O2 Saturation 98 ABG Base Excess 5 H FiO2 30 Sodium 149 H Potassium 4.0 Chloride 110 H Carbon Dioxide 28.4 Anion Gap 11 BUN 16 Creatinine 0.8 Estim Creat Clear Calc 80.8 eGFR > 60 BUN/Creatinine Ratio 20 Glucose 143 H Calculated Osmolality 299 H Calcium 8.2 L Corrected Calcium 8.8 Phosphorus 2.8 Magnesium 1.9 Total Bilirubin 0.4 AST 75 H ALT 92 H Alkaline Phosphatase 105 Total Protein 5.8 Albumin 3.2 L Globulin 2.6 Albumin/Globulin Ratio 1.2 Impressions Impression: GI bleed in the form of melena hemoglobin stable at 8.3 Respiratory failure s/p extubation Cirrhotic liver disease Continue supportive care ABG Interpretation ABG results: 11/03/24 11/03/24 11/03/24 11:20 14:11 17:06 ABG pH 7.35 7.34 L 7.20 L D ABG pCO2 21 L 20 L 45 D ABG pO2 193 H 82 L D 78 L ABG HCO3 12 L 11 L 16 L ABG O2 Saturation 100 H 96 91 ABG Base Excess -12 L -14 L -12 L VBG pH VBG pCO2 VBG pO2 VBG Base Excess 11/04/24 11/04/24 11/04/24 00:00 04:29 05:15 ABG pH 7.50 H D ABG pCO2 30 L D ABG pO2 109 H D ABG HCO3 23 ABG O2 Saturation 100 H ABG Base Excess 1 VBG pH 7.43 7.52 VBG pCO2 35 L 27 L VBG pO2 43 57 VBG Base Excess -1 0 11/05/24 11/06/24 11/06/24 04:49 03:40 21:45 ABG pH 7.48 H 7.41 ABG pCO2 35 43 ABG pO2 74 L D 108 D ABG HCO3 26 27 H ABG O2 Saturation 96 99 H ABG Base Excess 3 2 VBG pH 7.49 VBG pCO2 39 D VBG pO2 39 VBG Base Excess 6 H 11/07/24 11/08/24 11/09/24 05:59 04:19 04:11 ABG pH 7.49 H 7.48 H 7.44 ABG pCO2 39 38 40 ABG pO2 71 L D 77 L 63 L ABG HCO3 29 H 29 H 27 H ABG O2 Saturation 96 97 93 ABG Base Excess 6 H 5 H 3 VBG pH VBG pCO2 VBG pO2 VBG Base Excess 11/10/24 07:02 ABG pH 7.45 ABG pCO2 42 ABG pO2 83 D ABG HCO3 29 H ABG O2 Saturation 98 ABG Base Excess 5 H VBG pH VBG pCO2 VBG pO2 VBG Base Excess Assessment & Plan A&P Narrative 49 years old male with acute respiratory failure bilateral pneumonia acute coronary syndrome mechanically ventilated with previous history of Esophageal carcinoma status posttreatment and supposedly in remission Difficulty placing the NGT only OGT in Plan Will attempt to place a 14 [place] NGT either via nasogastric approach or oral approach Will follow the patient # Transaminitis most likely due to hypoxic hepatitis Thank you very much for the opportunity to participate in the care of this patient Time Spent With Patient Time: Total time spent is greater than 50% in coordination of care (as documented) at patient's floor/unit and/or counseling patient:
[2024-11-10] MEDS: ATORVASTATIN CALCIUM 20 MG TABLET 40 MG PO (21:35)
[2024-11-10] MEDS: ACETYLCYSTEINE RT SOL 10% 4 ML NEBU 3 ML INH (21:43)
[2024-11-10] MEDS: ALBUTEROL/IPRATROPIUM (Duoneb) RT SOL 3 ML NEBU INH (21:43)
[2024-11-11] VITALS (27 sets, daily range): BP systolic 89–130; BP diastolic 60–89; PULSE 97–117; RESP 19–32; TEMP 36.2–37.1; O2SAT 91–100; BMI 11.0
[2024-11-11] MEDS: MIDODRINE 5 MG TABLET PO (06:07)
[2024-11-11] MEDS: LACTULOSE SYRUP 20 GM/30 ML UDC NG ×3 (06:08→21:22)
[2024-11-11 06:22] LABS: Basophils # (Auto) 0.1 Thou/mm3 (0.0-0.2); Basophils % (Auto) 0 % (0-2.5); Eosinophils # (Auto) 0.7 Thou/mm3 (0.0-0.5); Eosinophils % (Auto) 3 % (0-10); Hematocrit 26.5 % (41.0-53.0); Immature Granulocytes Auto 0.37 Thou/mm3 (0.00-0.00); Lymphocytes # (Auto) 1.5 Thou/mm3 (1.0-4.8); Lymphocytes % (Auto) 7 % (10-50); Mean Corpuscular HGB Conc 30.9 g/dl (31.0-37.0); Mean Corpuscular Hemoglobin 31.1 pg (25.0-35.0); Mean Corpuscular Volume 100 fL (80-100); Monocytes # (Auto) 1.8 Thou/mm3 (0.0-0.8); Monocytes % (Auto) 9 % (0-12); Neutrophils # (Auto) 16.7 Thou/mm3 (1.8-7.7); Neutrophils % (Auto) 79 % (37-80); Nucleated Red Blood Cell # 0.13 Thou/mm3 (0.00-0.00); Nucleated Red Blood Cell % 1 /100 WBC (0); Platelet Count 326 Thou/mm3 (140-440); RDW Standard Deviation 66.2 fL (35.1-43.9); Red Blood Count 2.64 Miln/mm3 (4.50-5.90); White Blood Count 21.1 Thou/mm3 (3.8-10.6)
[2024-11-11 06:31] LABS: Hemoglobin 8.2 g/dL (13.5-16.0)
[2024-11-11 06:49] LABS: Alanine Aminotransferase 73 U/L (10-49); Albumin, Serum 3.2 gm/dL (3.5-5.0); Albumin/Globulin Ratio 1.1 (1.2-2.2); Alkaline Phosphatase 119 U/L (46-116); Anion Gap 11 (7-16); Aspartate Amino Transferase 66 U/L (0-34); BUN/Creatinine Ratio 19 Ratio (12-20); Bilirubin,Total 0.4 mg/dL (0.3-1.2); Blood Urea Nitrogen 13 mg/dL (9-23); Calcium 8.1 mg/dL (8.3-10.6); Calcium (Corrected) 8.7 mg/dL (8.5-10.1); Carbon Dioxide 29.5 mMol/L (20.0-31.0); Chloride 111 mMol/L (98-107); Creatine Kinase 41 U/L (34-171); Creatinine (Component) 0.7 mg/dL (0.6-1.3); Estimated Creatinine Clearance 91.8 mL/min (>60); Globulin 2.8 gm/dL (2.3-3.5); Glucose 145 mg/dL (74-106); Magnesium 2.0 mg/dL (1.6-2.6); Osmolality,Calculated 302 (275-295); Phosphorous 2.8 mg/dL (2.4-5.1); Potassium 3.7 mMol/L (3.4-5.1); Sodium 151 mMol/L (136-145); Total Protein 6.0 gm/dL (5.7-8.2); eGFR > 60 See Note
[2024-11-11] MEDS: ALBUTEROL/IPRATROPIUM (Duoneb) RT SOL 3 ML NEBU INH ×4 (11:01→22:47)
[2024-11-11] MEDS: ACETYLCYSTEINE RT SOL 10% 4 ML NEBU 3 ML INH ×4 (11:01→22:46)
[2024-11-11] MEDS: MULTIVITAMIN 15 ML UDC NG (11:12)
[2024-11-11] MEDS: THIAMINE 100 MG TABLET NG (11:12)
[2024-11-11] MEDS: METOPROLOL SUCCINATE XL 25 MG TABCR NG (11:13)
[2024-11-11] MEDS: ASPIRIN 81 MG CHEW NG (11:13)
[2024-11-11] MEDS: FOLIC ACID 1 MG TABLET NG (11:16)
[2024-11-11] MEDS: FERRIC SOD GLUC INJ 125 MG in SODIUM CHLORIDE 0.9% 100 ML 110 MG IV (11:32)
--- NOTE | 2024-11-11 11:32 | ESPR_ITS ---
<Statement entered by Dom Darby MD - 11/12/24 13:12> Patient was seen and examined at bedside. I agree on the assessment and plan on this note as documented by resident Vern Fairchild PGY1. Patient monitored overnight, no acute overnight events, was extubated yesterday, tolerated well. Continues to have thick secretions, we will continue with chest PT every 4 hours with chest vest along with N-acetylcysteine and DuoNebs combined treatment at the same time scheduled. We will continue midodrine 5 mg 3 times daily and metoprolol 25 daily. Cardiology is following patient closely, patient has a complement of ABBI and suspected Takotsubo cardiomyopathy, cardiology to consider PABLITO/cardiac catheterization. Otherwise patient is on tube feeds, tolerating tube feeds well, failed bedside nurse swallow screen yesterday, consider speech therapy evaluation and starting patient on p.o. diet once stabilized. Otherwise we will continue thiamine folate, multivitamin along with lactulose rifaximin for underlying acute encephalopathy. Patient has not required any IV pressors, blood pressure is stable on midodrine. Patient will need further workup of his cirrhosis which is most likely secondary to alcohol use however will need to rule out all other causes outpatient. General surgeon did examine the patient for the inguinal hernia, no surgical intervention as of now per surgeon. Patient is on increased free water flushes for hypernatremia, primary team to manage hypernatremia. Patient to receive IV iron for 5 days, last dose will be on 11/13/2024. We will continue octreotide drip for 5 days along with IV Protonix twice daily. Patient is deemed stable to be downgraded to telemetry, hospitalist team to resume care of the patient. Case discussed with attending Dr. Jet Darby MD PGY-2 Documentation for date of: 11/11/24 Subjective Subjective Interval history: Interval history: Mr. Trejo is a 49-year-old male with past medical history of hypertension and personal history of esophageal cancer status post-treatment in remission who presented to [facility] emergency department on 11/03/2024 with a chief complaint of weakness and shortness of breath. Patient seen in the emergency department, significantly tachypneic with increased work of breathing, patient reported that he had generalized weakness and fatigue for the last 2 weeks which did not improve and he developed significant severe shortness of breath today. Reported the shortness of breath to be progressive accompanied with coughing, denies any similar complains in the past and denies any sick contacts. Patient denies any recent fevers, chills, headache, weight loss and any other medical problems. Patient also complained that he had been under recent stress, unable to find a job has been looking for a job. ED physician consulted front office specialist for possible ICU admission, on examination in ED patient had increased work of breathing, tachypneic and respiratory rate 40s, requiring high flow nasal cannula, SpO2 100. Per review of labs it was noted that patient is lactic acidosis/metabolic acidosis with compensated respiratory alkalosis. Patient was given Lasix 20 mg IV x 1 considering underlying chest x- ray findings, bedside echo showed apical hypokinesis, case was discussed with quill reamer on-call, echocardiogram was ordered in ED. Considering patient continued to have increased work of breathing, patient signed a POLST form for full treatment full code, discussed with patient's sister and patient regarding intubation and central line placement. Patient provided consent patient was intubated by front office specialist team and postintubation right IJ triple-lumen central line placed. Patient admitted to the intensive care unit for acute hypoxic respiratory failure secondary to distributive shock, increased work of breathing. 11/04/24: Patient had black bowel movement overnight, 500 cc greenish fluid suctioned out of NG tube, was given aspirin earlier this morning, we will titrate down tidal volume lung protective volume goal 4 to 6 cc/kg, goal tidal volume for today is 320 will titrate down as patient tolerates, limited echo at bedside reviewed with technical staff assistant, there is some concern of LVOT obstruction patient's pressor requirement has improved, plan to titrate down vaso and replace vaso with phenylephrine, will start patient on thiamine IV twice daily and folate IV daily. Pending limited echo results. 11/05/24: Continues to have black bowel movements, hemoglobin stable, change Protonix to twice daily, reached out to patient's sister today, per patient's sister he is a chronic alcoholic, reports that he at least drinks 2 large bottles of hard liquor along with beers on a daily basis, patient is requiring high doses sedation, agitated at times has significant alcohol withdrawal, started on phenobarbital every 6 hours, chlordiazepoxide 50 3 times daily and patient also has Versed 2 mg as needed for anxiety. Patient has been off pressors, stop stress dose steroids, continue thiamine and folate acid. 11/06/24: Versed as needed. Precedex as needed for agitation. Continue thiamine and folic acid. Hypocalcemic, calcium gluconate X 1. Lasix 20mg x 1, lisinopril 2.5mg x 1, carvedilol 3.125 mg x 1, consider one-time dose of carvedilol 3.125 mg in the evening if blood pressure tolerates. Plan to wean the patient off of sedation today. 11/07/2024: Patient is off sedation. Patient is still lethargic. CT scan head ordered-negative for bleed. Lactulose 20 mg 3 times daily titrate to 4-5 BM. Liver ultrasound shows ascites. 3X 250 mL fluid boluses of LR goven per NICOM assessment, potassium repleted. Holding DVT prophylaxis and aspirin due to possible GI bleed. Started on Octreotide GTT, GI to scope later today. Zosyn switched to ceftriaxone. 11/08/2024: Patient continues to be off sedation. Following commands and opening eyes to voice, though patient is unable to move upper extremities. MRI ordered for concern of focal neurological deficit. Black tarry stools continue, EGD yesterday showed nonbleeding esophageal varices, will continue octreotide, lactulose, rifaximin, resume aspirin per GI recommendations. Patient is hypernatremic, will increase free water flushes to 175mL/4h. Ceftriaxone continued for the 5th day. 11/09/2024: Patient had a low-grade temperature overnight of 99.9. Continues to downtrend. White count went up to 19 from 16.5. Patient continues to be off sedation. Following commands and opening eyes to voice though still unable to move upper extremities. MRI today demonstrated increased white matter signal evident, scattered punctate foci increased signal in the frontal parietal white matter, demyelinating disease pattern. Patient continues to have black tarry stools. Octreotide, lactulose, rifaximin, and aspirin continued. Patient continues to be hypernatremic, will decrease free water flushes to 125 mL/4 hours. 11/10/2024: No overnight events, patient following commands this morning, met parameters for extubation, RSBI less than 105, NIF greater than -20, patient extubated to coolmist later transitioned to oxygen mask, saturating well on 6 L. Patient had excessive amount of secretions, coughing, continue breathing treatments every 4 hours, started on chest physiotherapy every 4 hours with chest vest, will consider BiPAP at night. Patient will be given 20 mg Lasix x 1 today, blood pressure normotensive on midodrine 5 3 times daily, started on metoprolol succinate 25 p.o. daily magnesium was repleted earlier this morning. 11/11/2024: Patient has a leukocytosis of 21.1 from 16.4 but no temperature. Patient continues to have thick secretions and coughing. Will continue acetylcysteine and albuterol ipratropium treatments every 4 hours and chest PT every 4 hours. Blood pressure continues to be normotensive with midodrine 5 mg 3 times daily and metoprolol 25 mg once daily. Will increase volume of free water flushes to 175 mL/h due to hyponatremia. Downgrade to telemetry. Exam Vital Signs Temp Pulse Resp BP Pulse Ox O2 Del Method O2 Flow Rate 98.7 F 111 H 30 H 123/76 100 Oxy Mask 6 11/11/24 04:00 11/11/24 11:13 11/11/24 11:01 11/11/24 11:13 11/11/24 11:01 11/11/24 04:00 11/11/24 11:01 FiO2 30 11/10/24 10:40 Narrative Exam General: Ill-appearing man, lethargic, cachectic, temporal wasting. Neurologic: GCS 13, following commands. HEENT: Normocephalic, atraumatic, mucous membranes dry. Pupils reactive to light. Heart: Tachycardic, systolic murmur at the mitral listening post left fifth intercostal space sternal border. Lungs: Pectus excavatum, clear to auscultation bilaterally with wheezing B/L Abdomen: Right sided reducible inguinal hernia. Right lower quadrant bruise approximately 5 cm long at the site of heparin SQ inj. Extremities: 1+ pitting edema in the distal upper extremities bilaterally. No edema in the lower extremities bilaterally. 2+ radial and dorsalis pedis pulses bilaterally. Rt knee effusions. Skin: Cool. Dry. No rash. Objective Labs 11/12/24 03:20 11/12/24 11:11 Labs: Laboratory Results - last 24 hr 11/11/24 05:00 WBC 21.1 H RBC 2.64 L Hgb 8.2 L Hct 26.5 L MCV 100 MCH 31.1 MCHC 30.9 L RDW Std Deviation 66.2 H Plt Count 326 D Neut % (Auto) 79 Lymph % (Auto) 7 L [place] % (Auto) 9 Eos % (Auto) 3 Baso % (Auto) 0 Neut # (Auto) 16.7 H Lymph # (Auto) 1.5 [place] # (Auto) 1.8 H Eos # (Auto) 0.7 H Baso # (Auto) 0.1 Immature Gran # (Auto) 0.37 H Absolute Nucleated RBC 0.13 H Immature Gran % 2 H Nucleated RBC % 1 H Sodium 151 H Potassium 3.7 Chloride 111 H Carbon Dioxide 29.5 Anion Gap 11 BUN 13 Creatinine 0.7 Estim Creat Clear Calc 91.8 eGFR > 60 BUN/Creatinine Ratio 19 Glucose 145 H Calculated Osmolality 302 H Calcium 8.1 L Corrected Calcium 8.7 Phosphorus 2.8 Magnesium 2.0 Total Bilirubin 0.4 AST 66 H ALT 73 H Alkaline Phosphatase 119 H Total Creatine Kinase 41 D Total Protein 6.0 Albumin 3.2 L Globulin 2.8 Albumin/Globulin Ratio 1.1 L ABG Interpretation ABG results: 11/03/24 11/03/24 11/03/24 11:20 14:11 17:06 ABG pH 7.35 7.34 L 7.20 L D ABG pCO2 21 L 20 L 45 D ABG pO2 193 H 82 L D 78 L ABG HCO3 12 L 11 L 16 L ABG O2 Saturation 100 H 96 91 ABG Base Excess -12 L -14 L -12 L VBG pH VBG pCO2 VBG pO2 VBG Base Excess 11/04/24 11/04/24 11/04/24 00:00 04:29 05:15 ABG pH 7.50 H D ABG pCO2 30 L D ABG pO2 109 H D ABG HCO3 23 ABG O2 Saturation 100 H ABG Base Excess 1 VBG pH 7.43 7.52 VBG pCO2 35 L 27 L VBG pO2 43 57 VBG Base Excess -1 0 11/05/24 11/06/24 11/06/24 04:49 03:40 21:45 ABG pH 7.48 H 7.41 ABG pCO2 35 43 ABG pO2 74 L D 108 D ABG HCO3 26 27 H ABG O2 Saturation 96 99 H ABG Base Excess 3 2 VBG pH 7.49 VBG pCO2 39 D VBG pO2 39 VBG Base Excess 6 H 11/07/24 11/08/24 11/09/24 05:59 04:19 04:11 ABG pH 7.49 H 7.48 H 7.44 ABG pCO2 39 38 40 ABG pO2 71 L D 77 L 63 L ABG HCO3 29 H 29 H 27 H ABG O2 Saturation 96 97 93 ABG Base Excess 6 H 5 H 3 VBG pH VBG pCO2 VBG pO2 VBG Base Excess 11/10/24 07:02 ABG pH 7.45 ABG pCO2 42 ABG pO2 83 D ABG HCO3 29 H ABG O2 Saturation 98 ABG Base Excess 5 H VBG pH VBG pCO2 VBG pO2 VBG Base Excess Quality Measures Quality Measures sepsis Current suspected stage: ruled out Possible source: pulmonary Blood cultures ordered: completed in ED Antibiotic ordered: Yes Assessment & Plan Assessment Current Active Medications: Generic Name Dose Route Start Last Admin Trade Name Freq PRN Reason Stop Dose Admin Acetaminophen 325 mg 11/05/24 09:48 Acetaminophen 325 Mg Tablet PO 12/03/24 15:31 Q6H PRN Fever >101.5 Acetylcysteine 3 ml 11/11/24 11:00 11/11/24 11:01 Acetylcysteine Rt Anastacia 10% 4 Ml Nebu INH 12/11/24 10:59 3 ml Q4HRRT BETO Administration Albuterol/Ipratropium 3 ml 11/11/24 11:00 11/11/24 11:01 Albuterol/Ipratropium (Duoneb) Rt Anastacia 3 Ml Nebu INH 12/11/24 10:59 3 ml Q4HRRT BETO Administration Aspirin 81 mg 11/11/24 08:25 11/11/24 11:13 Aspirin 81 Mg Chew NG 12/04/24 08:59 81 mg QDAY BETO Administration Atorvastatin Calcium 40 mg 11/11/24 08:25 Atorvastatin Calcium 20 Mg Tablet NG 12/03/24 20:59 HS BETO Folic Acid 1 mg 11/11/24 09:00 11/11/24 11:16 Folic Acid 1 Mg Tablet NG 12/11/24 08:59 1 mg QDAY BETO Administration Norepinephrine/Dextrose 8 mg in 250 mls @ 5.63 mls/hr 11/03/24 14:57 11/06/24 21:45 Levophed In D5w 8mg/250ml IV 12/03/24 14:56 0 mcg/kg/min .Q24H PRN 0 mls/hr PER PROTOCOL Titration Protocol 0.05 MCG/KG/MIN Phenylephrine HCl 40 mg/ 100 mls @ 0.821 mls/hr 11/06/24 21:30 11/07/24 07:25 Sodium Chloride IV 12/06/24 21:29 0 mcg/kg/min .Q24H PRN 0 mls/hr Per Cardiogenic Protocol Titration Protocol 0.1 MCG/KG/MIN Octreotide Acetate 1,000 mcg/ 102 mls @ 5.1 mls/hr 11/07/24 10:16 11/10/24 18:30 Sodium Chloride IV 11/12/24 10:15 50 mcg/hr .Q20H BETO 5.1 mls/hr Administration Protocol 50 MCG/HR Ferric Sodium Gluconate 125 mg 110 mls @ 110 mls/hr 11/08/24 17:15 11/10/24 10:30 / Sodium Chloride IV 12/08/24 17:14 110 mls/hr QDAY BETO Administration Lactulose 20 gm 11/07/24 14:00 11/11/24 06:08 Lactulose Syrup 20 Gm/30 Ml Udc NG 12/07/24 13:59 20 gm TID BETO Administration Protocol Metoprolol Succinate 25 mg 11/11/24 09:00 11/11/24 11:13 Metoprolol Succinate Xl 25 Mg Tabcr NG 12/10/24 10:59 25 mg QDAY BETO Administration Midodrine 5 mg 11/11/24 08:26 Midodrine 5 Mg Tablet NG 12/07/24 13:59 TID BETO Multivitamins/Minerals 15 ml 11/11/24 09:00 11/11/24 11:12 Multivitamin 15 Ml Udc NG 12/11/24 08:59 15 ml QDAY BETO Administration Ondansetron HCl 4 mg 11/03/24 15:32 Ondansetron Inj 2 Mg/Ml Inj 2 Ml IVP 12/03/24 15:31 Q6H PRN NAUSEA OR VOMITING Protocol Pantoprazole Sodium 40 mg 11/05/24 21:00 11/11/24 11:11 Pantoprazole Inj 40 Mg Vial IVP 12/05/24 20:59 40 mg BID BETO Administration Rifaximin 550 mg 11/08/24 13:45 11/11/24 11:13 Rifaximin 550 Mg Tablet PO 11/15/24 13:44 550 mg BID BETO Administration Sennosides 1 tab 11/04/24 09:00 11/11/24 11:12 Senna Tablet PO 12/04/24 08:59 1 tab QDAY BETO Administration Protocol Sodium Chloride 3 ml 11/03/24 10:58 Sodium Chloride Rt Anastacia 0.9% 3 Ml Nebu INH 12/03/24 10:57 PRN PRN SOLN Thiamine HCl 100 mg 11/11/24 09:00 11/11/24 11:12 Thiamine 100 Mg Tablet NG 12/11/24 08:59 100 mg QDAY BETO Administration Plan Summary: Mr. Trejo is a 49-year-old male with past medical history of hypertension and personal history of esophageal cancer status post-treatment in remission who presented to [facility] emergency department on 11/03/2024 with a chief complaint of weakness and shortness of breath. Neuro #Acute encephalopathy most likely hepatic versus metabolic versus focal neurological deficit versus less likely anoxic encephalopathy #Alcohol withdrawal (resolved) #Questionable [place] encephalopathy #Generalized weakness #Demyelinating disease pattern on MRI - Patient is cachectic with temporal wasting, and BMI of 18.3 kg/m. Patient has been off of sedation for 4 days - Consider hepatic encephalopathy in the setting of alcohol use, Imaging showed irregular liver contour, Ammonia was 78 on presentation. has LGIB. - MRI of the head showed punctate foci with increased signal in the frontal parietal white matter, demyelinating disease pattern possible. Low likelihood of esophageal cancer metastasis. - Neurology on board. Plan: - Thiamine, folate and multivitamin - Lactulose 20 GM p.o. 3 times daily, goal of 3-4 BM per day - Rifxamin 550mg BID - Pending EEG - Neurology consulted, acetylcholine receptor antibody ordered Cardiac #HFrEF, EF 35 to 40% #Suspicion of Takotsubo cardiomyopathy #Possible LVOT obstruection 2/ [facility] - Echo 11/03/2024 showed ejection fraction 35 to 40%, decreased apical motion - Patient is net +95 mL past 24 hours - Patient went back on Levophed evening of 11/06/2024, was switched to phenylephrine in order to increase diastolic filling time, off pressors morning of 11/07/2024 - Appears intravascularly dry evidenced by hypernatremia and lack of edema on physical exam Plan: - Continue on metoprolol succinate 25 mg daily - Continue midodrine 5 mg p.o. 3 times daily - Cardiology consulted, appreciate recommendations - Cardiology to consider PABLITO/cardiac cath #NSTEMI type II most likely type I - Troponin down trended - Cardiology consulted # Distributive shock, secondary to sepsis, septic shock secondary to aspiration pneumonia, resolved Pulmonary #Acute hypoxic respiratory failure secondary to pneumonia, respiratory failure in setting of shock #Status post extubation 11/10/2024 #Aspiration pneumonia Differential diagnosis: - Consider aspiration pneumonia in the presence of dysphagia due to history of esophageal cancer Diagnostic workup: - Initial ABG shows pH 7.35, pCO2 21, pO2 193, bicarb 12, patient on high flow nasal cannula in ED, significantly tachypneic, increased work of breathing, respiratory rate in 40s, accessory muscle use noted. - ABG 11/11/2024 pH 7.45, CO2 42, PaO2 83, HCO3 29 - Patient denies any sick contacts, although CTA shows significant right-sided pneumonia and left base pneumonia - Bedside flu, COVID negative, cocci IgM negative, MRSA nasal screen negative, Blood cultures negative -Thick excessive secretions Plan: - Chest PT - Scheduled DuoNebs Q4, scheduled albuterol/ipratropium Q4 Gastrointestinal #Decompensated cirrhosis 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 #Transaminitis #Suspected hepatic encephalopathy #GI bleed workup #Melena Diagnostic workup: - CTA abdomen showed evidence of cirrhosis - Per the patient's family member the patient consumes 2 bottles of hard alcohol on a daily basis in addition to beer, Hepatitis panel negative - CT chest abdomen pelvis showed cirrhosis - AST 66 ALT 73 11/11/2024, has been downtrending - MELD score of 7, 1.9% estimated 3-month mortality - Child-Pug Score: 8 - Official liver ultrasound today shows ascites - EGD 11/07/2024 showed grade 1 esophageal varices, 2+ esophageal varices not large enough for band ligation Plan: - Continue folate and thiamine - Continue lactulose 20 GM p.o. 3 times daily, titrate to 4-5 bowel movements - Continue octreotide gtt for 5 days started on the 11/07/2024 ends in 11/12/2024 - Continue Protonix twice daily - Hb daily monitor #Personal history of esophageal cancer, in remission Differential diagnosis: Patient is status post esophagectomy Diagnostic workup: - Patient reported self history of esophageal cancer reports completed treatment heart disease in remission - History of esophagectomy, there is suspicion of underlying dysphagia Follow-up: - Failed swallow eval postextubation - Continue tube feeds #Large right inguinal hernia #Dilated bowel loops Differential diagnosis: Incarcerated hernia. Diagnostic workup: - On physical exam hernia is reducible, low suspicion of incarceration - CTA abdomen pelvis shows large right inguinal hernia noted on imaging as well, no radiological signs of incarceration Treatment: - General Surgery consulted, no surgical intervention needed in this admission, can follow up o/p Renal/Genitourinary #Hypernatremia Differential diagnosis: Hypovolemia - Was given IV fluid in the emergency department in addition to Lasix Diagnostic workup: - Na 151 11/11/2024 Plan: - Increased free water flush volume from 125 to 175 - Continue to monitor urine output - Follow sodium in a.m. #Hypokalemia (Resolved) #Lactic acidosis, (Resolved) #High anion gap metabolic acidosis, (Resolved) Endocrine No active problems Hematology #Leukocytosis #Low-grade temperature (resolved) Diagnostic workup: - WBC 21.1 morning of 11/11/2024 - Consider acute phase reaction in combination with stress dose steroids Treatment: - Follow CBC #Normocytic normochromic anemia versus iron deficiency anemia Differential diagnosis: Nutritional deficiency, in the setting of sepsis, GI bleed, low suspicion of hemolysis Diagnostic workup: - Hemoglobin 8.1 on presentation - Hemoglobin 8.2 hematocrit 26.5 11/11/2024 - Iron level 19 on 11/07/2024 Treatment: - First dose ferric Sod Glut 125 mg received 11/08/2024, 5-day course, will continue on transfer to telemetry med - Follow CBC in a.m. - Continue folic acid and multivitamin #Thrombocytosis, (Resolved) Infectious Disease #Pneumonia Diagnostic workup: - Chest x-ray significant for bibasilar infiltrates Plan: -Completed treatment with Zosyn and ceftriaxone Integumentary No active problems DVT prophylaxis: SCDs GI prophylaxis: IV Protonix twice a day Diet: NPO Tubes: Lines: Peripheral IV, right IJ triple-lumen Code status: Full code Dispo: Patient awake and following commands. On oxygen mask. Patient still has thick secretions and requires scheduled breathing treatments and chest physical therapy. Will downgrade to telemetry. The patient was seen and discussed with my attending physician Dr. Kyleigh Chaudhary MD and my senior residents Dr. Wiliam Ramos MD PGY-3 and Dom Darby MD PGY-2. Vern Fairchild DO PGY-1. Attending Provider Attestation/Addendum pt seen and examined with resident team, agree with above. in brief this is a 49yo M admitted to the ICU with acute resp failure. He was successfully extubated yesterday. He has had significant secretions and has gen weakness. He requires fq suctioning with CPT along with nebs. today he appears somewhat stronger than yesterday. Neuro was consulted for changes on MRI and weakness and there is a suspicion for myasthenia gravis. Serologies were sent. Pt on BB and midodrine, on lasix, followed by cardiology for his new HFrEF and ABBI. He had a good UOP on lasix however is not very net neg. OVerall he appears stable for downgrade to tele. labs, imaging,records reviewed case d/w ICU team ~37min required for eval, exam, review, intervention, discussion and formulation of POC for this pt
[2024-11-11] MEDS: OCTREOTIDE ACET INJ 1,000 MCG in SODIUM CHLORIDE 0.9% 100 ML 5.1 MCG IV (13:17)
[2024-11-11] MEDS: MIDODRINE 5 MG TABLET NG ×2 (13:17→21:21)
--- NOTE | 2024-11-11 14:31 | PD.RESPRO ---
Documentation for date of: 11/11/24 Subjective Subjective Interval history: Patient examined at bedside. Able to follow commands, able to say full name. Exam Vital Signs Temp Pulse Resp BP Pulse Ox O2 Del Method O2 Flow Rate 98.7 F 101 H 30 H 100/64 100 Oxy Mask 6 11/11/24 04:00 11/11/24 13:17 11/11/24 11:01 11/11/24 13:17 11/11/24 11:01 11/11/24 04:00 11/11/24 11:01 FiO2 30 11/10/24 10:40 Narrative Exam General: No acute distress, cachectic, temporal wasting, diffuse muscle atrophy HENT: Normocephalic, atraumatic, normal hearing, excess secretions requiring suction Neck: Supple, non-tender, no JVD Lungs: On oxy mask, symmetric chest rise Heart: Peripheral pulses intact bilaterally Abdomen: Soft, non-distended Neurologic: Mental status: Orientation: Unable to assess Communication: Patient can follow simple instructions Language: Can say full name Cranial nerves: CN III: Pupils equal, round, and reactive to light Motor: No abnormal movements or fasciculations Muscle strength: 3/5 in bilateral upper and lower extremities, though muscles easily fatigued Sensory: unable to assess Reflexes: Biceps (C5-6): R 2+ L 2+ Triceps (C7-8): R 2+ L 2+ Patellae (L3-4): R 2+ L 2+ Achilles (S1-2):R 2+ L 2+ Objective Labs 11/11/24 05:00 11/11/24 23:24 Labs: Laboratory Results - last 24 hr 11/11/24 05:00 WBC 21.1 H RBC 2.64 L Hgb 8.2 L Hct 26.5 L MCV 100 MCH 31.1 MCHC 30.9 L RDW Std Deviation 66.2 H Plt Count 326 D Neut % (Auto) 79 Lymph % (Auto) 7 L Randall % (Auto) 9 Eos % (Auto) 3 Baso % (Auto) 0 Neut # (Auto) 16.7 H Lymph # (Auto) 1.5 Randall # (Auto) 1.8 H Eos # (Auto) 0.7 H Baso # (Auto) 0.1 Immature Gran # (Auto) 0.37 H Absolute Nucleated RBC 0.13 H Immature Gran % 2 H Nucleated RBC % 1 H Sodium 151 H Potassium 3.7 Chloride 111 H Carbon Dioxide 29.5 Anion Gap 11 BUN 13 Creatinine 0.7 Estim Creat Clear Calc 91.8 eGFR > 60 BUN/Creatinine Ratio 19 Glucose 145 H Calculated Osmolality 302 H Calcium 8.1 L Corrected Calcium 8.7 Phosphorus 2.8 Magnesium 2.0 Total Bilirubin 0.4 AST 66 H ALT 73 H Alkaline Phosphatase 119 H Total Creatine Kinase 41 D Total Protein 6.0 Albumin 3.2 L Globulin 2.8 Albumin/Globulin Ratio 1.1 L ABG Interpretation ABG results: 11/03/24 11/03/24 11/03/24 11:20 14:11 17:06 ABG pH 7.35 7.34 L 7.20 L D ABG pCO2 21 L 20 L 45 D ABG pO2 193 H 82 L D 78 L ABG HCO3 12 L 11 L 16 L ABG O2 Saturation 100 H 96 91 ABG Base Excess -12 L -14 L -12 L VBG pH VBG pCO2 VBG pO2 VBG Base Excess 11/04/24 11/04/24 11/04/24 00:00 04:29 05:15 ABG pH 7.50 H D ABG pCO2 30 L D ABG pO2 109 H D ABG HCO3 23 ABG O2 Saturation 100 H ABG Base Excess 1 VBG pH 7.43 7.52 VBG pCO2 35 L 27 L VBG pO2 43 57 VBG Base Excess -1 0 11/05/24 11/06/24 11/06/24 04:49 03:40 21:45 ABG pH 7.48 H 7.41 ABG pCO2 35 43 ABG pO2 74 L D 108 D ABG HCO3 26 27 H ABG O2 Saturation 96 99 H ABG Base Excess 3 2 VBG pH 7.49 VBG pCO2 39 D VBG pO2 39 VBG Base Excess 6 H 11/07/24 11/08/24 11/09/24 05:59 04:19 04:11 ABG pH 7.49 H 7.48 H 7.44 ABG pCO2 39 38 40 ABG pO2 71 L D 77 L 63 L ABG HCO3 29 H 29 H 27 H ABG O2 Saturation 96 97 93 ABG Base Excess 6 H 5 H 3 VBG pH VBG pCO2 VBG pO2 VBG Base Excess 11/10/24 07:02 ABG pH 7.45 ABG pCO2 42 ABG pO2 83 D ABG HCO3 29 H ABG O2 Saturation 98 ABG Base Excess 5 H VBG pH VBG pCO2 VBG pO2 VBG Base Excess Quality Measures Quality Measures sepsis Current suspected stage: ruled out Possible source: pulmonary Blood cultures ordered: completed in ED Antibiotic ordered: Yes Assessment & Plan Assessment Current Active Medications: Generic Name Dose Route Start Last Admin Trade Name Freq PRN Reason Stop Dose Admin Acetaminophen 325 mg 11/05/24 09:48 Acetaminophen 325 Mg Tablet PO 12/03/24 15:31 Q6H PRN Fever >101.5 Acetylcysteine 3 ml 11/11/24 11:00 11/11/24 11:01 Acetylcysteine Rt Anastacia 10% 4 Ml Nebu INH 12/11/24 10:59 3 ml Q4HRRT BETO Administration Albuterol/Ipratropium 3 ml 11/11/24 11:00 11/11/24 11:01 Albuterol/Ipratropium (Duoneb) Rt Anastacia 3 Ml Nebu INH 12/11/24 10:59 3 ml Q4HRRT BETO Administration Aspirin 81 mg 11/11/24 08:25 11/11/24 11:13 Aspirin 81 Mg Chew NG 12/04/24 08:59 81 mg QDAY BETO Administration Atorvastatin Calcium 40 mg 11/11/24 08:25 Atorvastatin Calcium 20 Mg Tablet NG 12/03/24 20:59 HS BETO Folic Acid 1 mg 11/11/24 09:00 11/11/24 11:16 Folic Acid 1 Mg Tablet NG 12/11/24 08:59 1 mg QDAY BETO Administration Norepinephrine/Dextrose 8 mg in 250 mls @ 5.63 mls/hr 11/03/24 14:57 11/06/24 21:45 Levophed In D5w 8mg/250ml IV 12/03/24 14:56 0 mcg/kg/min .Q24H PRN 0 mls/hr PER PROTOCOL Titration Protocol 0.05 MCG/KG/MIN Phenylephrine HCl 40 mg/ 100 mls @ 0.821 mls/hr 11/06/24 21:30 11/07/24 07:25 Sodium Chloride IV 12/06/24 21:29 0 mcg/kg/min .Q24H PRN 0 mls/hr Per Cardiogenic Protocol Titration Protocol 0.1 MCG/KG/MIN Octreotide Acetate 1,000 mcg/ 102 mls @ 5.1 mls/hr 11/07/24 10:16 11/11/24 13:17 Sodium Chloride IV 11/12/24 10:15 50 mcg/hr .Q20H BETO 5.1 mls/hr Administration Protocol 50 MCG/HR Ferric Sodium Gluconate 125 mg 110 mls @ 110 mls/hr 11/08/24 17:15 11/11/24 11:32 / Sodium Chloride IV 12/08/24 17:14 110 mls/hr QDAY BETO Administration Lactulose 20 gm 11/07/24 14:00 11/11/24 13:17 Lactulose Syrup 20 Gm/30 Ml Udc NG 12/07/24 13:59 20 gm TID BETO Administration Protocol Metoprolol Succinate 25 mg 11/11/24 09:00 11/11/24 11:13 Metoprolol Succinate Xl 25 Mg Tabcr NG 12/10/24 10:59 25 mg QDAY BETO Administration Midodrine 5 mg 11/11/24 08:26 11/11/24 13:17 Midodrine 5 Mg Tablet NG 12/07/24 13:59 5 mg TID BETO Administration Multivitamins/Minerals 15 ml 11/11/24 09:00 11/11/24 11:12 Multivitamin 15 Ml Udc NG 12/11/24 08:59 15 ml QDAY BETO Administration Ondansetron HCl 4 mg 11/03/24 15:32 Ondansetron Inj 2 Mg/Ml Inj 2 Ml IVP 12/03/24 15:31 Q6H PRN NAUSEA OR VOMITING Protocol Pantoprazole Sodium 40 mg 11/05/24 21:00 11/11/24 11:11 Pantoprazole Inj 40 Mg Vial IVP 12/05/24 20:59 40 mg BID BETO Administration Rifaximin 550 mg 11/08/24 13:45 11/11/24 11:13 Rifaximin 550 Mg Tablet PO 11/15/24 13:44 550 mg BID BETO Administration Sennosides 1 tab 11/04/24 09:00 11/11/24 11:12 Senna Tablet PO 12/04/24 08:59 1 tab QDAY BETO Administration Protocol Sodium Chloride 3 ml 11/03/24 10:58 Sodium Chloride Rt Anastacia 0.9% 3 Ml Nebu INH 12/03/24 10:57 PRN PRN SOLN Thiamine HCl 100 mg 11/11/24 09:00 11/11/24 11:12 Thiamine 100 Mg Tablet NG 12/11/24 08:59 100 mg QDAY BETO Administration Plan # Bilateral upper extremity weakness, improving # Generalized weakness # Acute encephalopathy, improving Initial presentation in ED: generalized weakness x2 weeks, AMS, increased work of breathing BMI of 18.3 kg/m, cachectic, diffuse muscle atrophy Patient unable to move upper extremities bilaterally when off sedation on 11/08, now on 11/10 post-extubation, left upper extremity 2/5, right upper extremity 4/5 Lactic acid: 16 --> 13.1 --> 3.5 --> 2.9 UA negative, positive for hyaline casts. Salicylate level less than 3, UDS negative, EtOH less than 3, cocci IgM and IgG negative, hepatitis A/B/C nonreactive. B12 WNL 699, folate WNL 13.89, TSH 1.66 WNL, free T40.51 Low. Pro-Jonny 1.93 --> 4.24. CK WNL 41 TTE showed moderate left ventricle systolic dysfunction, severe mitral regurgitation, some LVOT obstruction. C/F Takotsubo cardiomyopathy. CT head without contrast 11/07: Negative for acute hemorrhage, midline shift, mass effect. Diffuse cortical atrophy. MRI brain without contrast 11/09: Punctate foci site in frontal parietal b/l white matter on FLAIR, non-specific, chronic, NOT suggestive of demyelinating diseae Acute encephalopathy DDX: infectious (PNA), hypoxia, alcohol withdrawal, hepatic encephalopathy, shock (septic/distributive vs hypovolemic), metabolic (lactic acidosis) Weakness DDX: most likely 2/2 alcohol-related polyneuropathy, myasthenia gravis, inflammatory myopathy Plan: - Pending EEG read - No need for further workup as patient presentation improving - Continue thiamine, folate - Pending AChR Ab (myasthenia gravis) - If weakness persist even after physical therapy, we will consider doing EMG nerve conduction study of both upper and lower extremities as an outpatient. # Alcohol withdrawal, resolved Hx: EtOH use disorder, drinks at least 2 large bottles of hard liquor along with beer on a daily basis Patient given phenobarbital, Versed, chlordiazepoxide. Required high levels of sedation for agitation while intubated Plan: - Management per primary team #HFrEF, EF 35 to 40% #Suspicion of Takotsubo cardiomyopathy #Possible LVOT obstruection 2/2 [facility] Echo 11/03/2024 LVEF 35 to 40%, decreased apical motion, moderate left ventricle systolic dysfunction, severe mitral regurgitation, some LVOT obstruction. BNP high 2306 Plan: -Management per primary #NSTEMI type II most likely type I Troponin 4.326 --> 4.32 --> 3.786 Plan: - Management per primary # Distributive shock, secondary to sepsis, septic shock secondary to aspiration pneumonia, resolved Plan: - Management per primary team #Acute hypoxic respiratory failure secondary to pneumonia, respiratory failure in setting of shock #Status post extubation 11/10/2024 #Aspiration pneumonia DDX: aspiration pneumonia in the presence of dysphagia due to history of esophageal cancer Flu, COVID negative, cocci IgM negative, MRSA nasal screen negative, Blood cultures negative CTA: significant right-sided pneumonia and left base pneumonia Plan: - Management per primary #Decompensated cirrhosis #Alcohol-related liver disease #Transaminitis #Suspected hepatic encephalopathy #GI bleed workup #Melena Hep A/B/C non-reactive 11/04 Cocci negative 11/04 CTA abdomen showed evidence of cirrhosis Liver ultrasound shows ascites EGD 11/07/2024 showed grade 1 esophageal varices, 2+ esophageal varices not large enough for band ligation MELD score of 7, 1.9% estimated 3-month mortality Child-Pug Score: 8 Plan: - Management per primary - folate, thiamine, lactulose, octreotide drip (11/07 - 11/12), Protonix, daily CBC for hemoglobin monitoring #Hx esophageal cancer, in remission s/p esophagectomy Suspicion of underlying dysphagia Follow-up: - Pending speech eval - Management per primary #Large right inguinal hernia #Dilated bowel loops Hernia is reducible, low suspicion of incarceration CTA abdomen pelvis shows large right inguinal hernia noted on imaging as well, no radiological signs of incarceration Plan: - Management per primary team - General Surgery consulted, no surgical intervention needed in this admission, can follow up o/p #Hypernatremia Plan: - Management per primary #Leukocytosis Initial WBC: 38.2 Plan: - Management per primary - Daily CBC #Normocytic normochromic anemia versus iron deficiency anemia Initial hgb: 8.8, stable DDX: Nutritional deficiency, in the setting of sepsis, GI bleed, low suspicion of hemolysis Plan: - Management per primary Discussed with Dr. Yifan Vargas, PGY1 Attending Provider Attestation/Addendum I personally have seen and examined the patient at the bedside and I his mental status is improved agreed with the resident's findings, assessment and plan of care. At present he needs physical therapy evaluation and management. CK: Normal. Follow-up with rest of the labs as they become available.
--- NOTE | 2024-11-11 14:54 | PC.SS ---
Update: Patient to be downgraded from ICU to Tele today.
--- NOTE | 2024-11-11 16:41 | ESPR_ITS ---
Documentation for date of: 11/11/24 Subjective Subjective Interval history: The patient was seen and examined at the bedside this morning. Patient has been extubated and on oxygen via Ventimask. Tachypneic and has significant cough with reduced ability to clear his secretions. On examination pulm crackles has been improving, and his urine output was around 800cc after Lasix IV once yesterday about 2 pm. Na - 156 and lasix held Stopped pressor support. Avoid inotropic's pressor support. Significant improvement in lactic acid level to 2.5 from 16 . White count still elevated, with hemoglobin 8.4. Improvement in pH and bicarb. Creatinine improving. Liver enzymes trending down. Repeat chest x-ray revealed significant improvement in bilateral pneumonia, and vascular congestions has improved significantly too. TTE done on 11/04/2024 revealed Normal LV size and mildly decreased LV systolic function with an EF of around 40 to 45%. EF improved from yesterday. Hypokinesis of the mid to apical anterior and anterolateral and apical segments appear improved. Apical akinesis still noted. Sigmoid septum noted with LVOT obstruction leading to moderate to severe eccentric MR directed anteriorly. Gradient measurement not accurate due to contamination with MR jet. Normal RV size and function. No pericardial effusion -Diuretics and IV fluids as needed depending on the patient's fluid status. - GDMT was started on the patient as blood pressure and other vitals were stable off pressors, but again MAP < 65 and was given 500cc bolus fluid yesterday morning with improvement in BP and mild improvement in HR . Ok to hold GDMT for now and start on metoprolol tartarate 12.5 mg bid when BP stable. -MCV is elevated at 99. Given his severe alcohol abuse patient is probably B12 as well as folate deficient. Patient would benefit from replacement of iron and B12 and folate which will eventually help anemia long-term and improve his tachycardia which would help with his LVOT obstruction and ABBI along with improvement of sepsis and alcohol withdrawal syndrome. EGD done on 11/07/24 revealed 2+ variceal dilatation with hypertensive portal gastropathy. Recommended to continue octreotide drip for 5 days. MRI on 11/09/2024 revealed Punctate foci increased signal in the frontal parietal white matter, demyelinating disease pattern. Repeat CXR done on 11/10/2024 revealed improvement in pulmonary vascular congestion. -Continue to monitor strict ins and outs. -Continue with aspirin 81 Mg daily, atorvastatin 40 Mg daily at night, ferric gluconate 125 Mg IV daily, folic acid 1 mg daily, metoprolol succinate 25 Mg daily, midodrine 5 Mg 3 times daily, and thiamine 100 Mg daily. Exam Vital Signs Temp Pulse Resp BP Pulse Ox O2 Del Method O2 Flow Rate 98 F 102 H 27 H 111/62 99 Oxy Mask 2 11/11/24 12:00 11/11/24 15:00 11/11/24 15:00 11/11/24 15:00 11/11/24 15:00 11/11/24 08:00 11/11/24 14:43 FiO2 30 11/10/24 10:40 Narrative Exam General: No acute distress, sedated, intubated and mechanically ventilated, responding well to commands, opening eyes with verbal stimulus HEENT: Moist mucous membranes, oropharynx clear Neck: Supple, No masses, No JVD CVS: Mild tachycardia, No murmurs, rubs or gallops Lungs: Mild wheezing throughout the lung field, improving rhonchi appreciated throughout the lung field, mild bibasilar crackles appreciated Abd: Soft, NT/ND, +BS, hepatomegaly appreciated Ext: No edema, warm and well perfused Skin: No rash Psych: Unable to obtain Objective Labs 11/11/24 05:00 11/11/24 05:00 Labs: Laboratory Results - last 24 hr 11/11/24 05:00 WBC 21.1 H RBC 2.64 L Hgb 8.2 L Hct 26.5 L MCV 100 MCH 31.1 MCHC 30.9 L RDW Std Deviation 66.2 H Plt Count 326 D Neut % (Auto) 79 Lymph % (Auto) 7 L Woodson % (Auto) 9 Eos % (Auto) 3 Baso % (Auto) 0 Neut # (Auto) 16.7 H Lymph # (Auto) 1.5 Woodson # (Auto) 1.8 H Eos # (Auto) 0.7 H Baso # (Auto) 0.1 Immature Gran # (Auto) 0.37 H Absolute Nucleated RBC 0.13 H Immature Gran % 2 H Nucleated RBC % 1 H Sodium 151 H Potassium 3.7 Chloride 111 H Carbon Dioxide 29.5 Anion Gap 11 BUN 13 Creatinine 0.7 Estim Creat Clear Calc 91.8 eGFR > 60 BUN/Creatinine Ratio 19 Glucose 145 H Calculated Osmolality 302 H Calcium 8.1 L Corrected Calcium 8.7 Phosphorus 2.8 Magnesium 2.0 Total Bilirubin 0.4 AST 66 H ALT 73 H Alkaline Phosphatase 119 H Total Creatine Kinase 41 D Total Protein 6.0 Albumin 3.2 L Globulin 2.8 Albumin/Globulin Ratio 1.1 L ABG Interpretation ABG results: 11/03/24 11/03/24 11/03/24 11:20 14:11 17:06 ABG pH 7.35 7.34 L 7.20 L D ABG pCO2 21 L 20 L 45 D ABG pO2 193 H 82 L D 78 L ABG HCO3 12 L 11 L 16 L ABG O2 Saturation 100 H 96 91 ABG Base Excess -12 L -14 L -12 L VBG pH VBG pCO2 VBG pO2 VBG Base Excess 11/04/24 11/04/24 11/04/24 00:00 04:29 05:15 ABG pH 7.50 H D ABG pCO2 30 L D ABG pO2 109 H D ABG HCO3 23 ABG O2 Saturation 100 H ABG Base Excess 1 VBG pH 7.43 7.52 VBG pCO2 35 L 27 L VBG pO2 43 57 VBG Base Excess -1 0 11/05/24 11/06/24 11/06/24 04:49 03:40 21:45 ABG pH 7.48 H 7.41 ABG pCO2 35 43 ABG pO2 74 L D 108 D ABG HCO3 26 27 H ABG O2 Saturation 96 99 H ABG Base Excess 3 2 VBG pH 7.49 VBG pCO2 39 D VBG pO2 39 VBG Base Excess 6 H 11/07/24 11/08/24 11/09/24 05:59 04:19 04:11 ABG pH 7.49 H 7.48 H 7.44 ABG pCO2 39 38 40 ABG pO2 71 L D 77 L 63 L ABG HCO3 29 H 29 H 27 H ABG O2 Saturation 96 97 93 ABG Base Excess 6 H 5 H 3 VBG pH VBG pCO2 VBG pO2 VBG Base Excess 11/10/24 07:02 ABG pH 7.45 ABG pCO2 42 ABG pO2 83 D ABG HCO3 29 H ABG O2 Saturation 98 ABG Base Excess 5 H VBG pH VBG pCO2 VBG pO2 VBG Base Excess Quality Measures Quality Measures sepsis Current suspected stage: sepsis Possible source: pulmonary Blood cultures ordered: completed in ED Antibiotic ordered: Yes Assessment & Plan Assessment Current Active Medications: Generic Name Dose Route Start Last Admin Trade Name Freq PRN Reason Stop Dose Admin Acetaminophen 325 mg 11/05/24 09:48 Acetaminophen 325 Mg Tablet PO 12/03/24 15:31 Q6H PRN Fever >101.5 Acetylcysteine 3 ml 11/11/24 11:00 11/11/24 14:41 Acetylcysteine Rt Anastacia 10% 4 Ml Nebu INH 12/11/24 10:59 3 ml Q4HRRT BETO Administration Albuterol/Ipratropium 3 ml 11/11/24 11:00 11/11/24 14:41 Albuterol/Ipratropium (Duoneb) Rt Anastacia 3 Ml Nebu INH 12/11/24 10:59 3 ml Q4HRRT BETO Administration Aspirin 81 mg 11/11/24 08:25 11/11/24 11:13 Aspirin 81 Mg Chew NG 12/04/24 08:59 81 mg QDAY BETO Administration Atorvastatin Calcium 40 mg 11/11/24 08:25 Atorvastatin Calcium 20 Mg Tablet NG 12/03/24 20:59 HS BETO Folic Acid 1 mg 11/11/24 09:00 11/11/24 11:16 Folic Acid 1 Mg Tablet NG 12/11/24 08:59 1 mg QDAY BETO Administration Octreotide Acetate 1,000 mcg/ 102 mls @ 5.1 mls/hr 11/07/24 10:16 11/11/24 13:17 Sodium Chloride IV 11/12/24 10:15 50 mcg/hr .Q20H BETO 5.1 mls/hr Administration Protocol 50 MCG/HR Ferric Sodium Gluconate 125 mg 110 mls @ 110 mls/hr 11/08/24 17:15 11/11/24 11:32 / Sodium Chloride IV 12/08/24 17:14 110 mls/hr QDAY BETO Administration Lactulose 20 gm 11/07/24 14:00 11/11/24 13:17 Lactulose Syrup 20 Gm/30 Ml Udc NG 12/07/24 13:59 20 gm TID BETO Administration Protocol Metoprolol Succinate 25 mg 11/11/24 09:00 11/11/24 11:13 Metoprolol Succinate Xl 25 Mg Tabcr NG 12/10/24 10:59 25 mg QDAY BETO Administration Midodrine 5 mg 11/11/24 08:26 11/11/24 13:17 Midodrine 5 Mg Tablet NG 12/07/24 13:59 5 mg TID BETO Administration Multivitamins/Minerals 15 ml 11/11/24 09:00 11/11/24 11:12 Multivitamin 15 Ml Udc NG 12/11/24 08:59 15 ml QDAY BETO Administration Ondansetron HCl 4 mg 11/03/24 15:32 Ondansetron Inj 2 Mg/Ml Inj 2 Ml IVP 12/03/24 15:31 Q6H PRN NAUSEA OR VOMITING Protocol Pantoprazole Sodium 40 mg 11/05/24 21:00 11/11/24 11:11 Pantoprazole Inj 40 Mg Vial IVP 12/05/24 20:59 40 mg BID BETO Administration Rifaximin 550 mg 11/08/24 13:45 11/11/24 11:13 Rifaximin 550 Mg Tablet PO 11/15/24 13:44 550 mg BID BETO Administration Sennosides 1 tab 11/04/24 09:00 11/11/24 11:12 Senna Tablet PO 12/04/24 08:59 1 tab QDAY BETO Administration Protocol Sodium Chloride 3 ml 11/03/24 10:58 Sodium Chloride Rt Anastacia 0.9% 3 Ml Nebu INH 12/03/24 10:57 PRN PRN SOLN Thiamine HCl 100 mg 11/11/24 09:00 11/11/24 11:12 Thiamine 100 Mg Tablet NG 12/11/24 08:59 100 mg QDAY BETO Administration Plan The patient is a 49-year-old male with significant past medical history of esophageal cancer currently on remission, and hypertension presented to ED with chief complaint of acute SOB and generalized weakness is currently being treated for septic shock, Takotsubo syndrome complicated by sigmoid interventricular septum further leading to tachycardia and NSTEMI type II. #Acute encephalopathy, improving Likely multifactorial 2/2 #Alcohold withdrawal, and #Demylinating disease pattern 2/2 #Alcohol abuse disorder Patient presented with generalized weakness, later required intubation in the setting of aspiration pneumonia and septic shock. However, the patient has not been tolerating spontaneous breathing trials. BL UE weakness was there so MRI brain was done that revealed punctate foci increased signal in the frontal parietal white matter, demyelinating disease pattern. Therefore, the ICU team is unable to extubate the patient. -Management deferred to ICU team #Abnormal EKG, likely 2/2 #Takotsubo syndrome vs LAD, complicated by #Sigmoid interventricular septum, possibly leading to #Moderate to severe eccentric MR, leading to #Moderate to severe PAH #HFrEF with apical akinesis EKG was significant for sinus tachycardia with deep symmetric T wave inversion in lateral leads V4 to V6, and inverted T waves in lead I and aVL. TTE on 11/03/2024 revealed: Normal LV size and moderate LV systolic dysfunction with an EF of 35 to 40%. Apical akinesis with hypokinesis of the mid to apical anterior, anterolateral and apical septal segments indicating possible Takotsubo syndrome versus LAD involvement. RV Normal in size and function. 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 Severe LA dilatation. Trace AI Moderate TR with mild RA dilatation. No Pericardial Effusion. IVC not well- visualized. Repeat limited TTE on 11/04/2024 revealed: Normal LV size and mildly decreased LV systolic function with an EF of around 40 to 45%. EF improved from yesterday. Hypokinesis of the mid to apical anterior and anterolateral and apical segments appear improved. Apical akinesis still noted. Sigmoid septum noted with LVOT obstruction leading to moderate to severe eccentric MR directed anteriorly. Gradient measurement not accurate due to contamination with MR jet. Normal RV size and function. No pericardial effusion -As the patient has sigmoid interventricular septum, and recent stressor likely leading to Takotsubo syndrome, leading to tachycardia of the base of left ventricle, which is further pulling in mitral valve leading to MR resulting with moderate to severe PAH. -Volume status is critical, to maintain euvolemia, as hypovolemia will cause decrease venous return, resulting as compensatory tachycardia of upper left ventricle leading to further MR, with increased pulmonary arterial pressure and shunt reversal. On the other hand, if there is hypervolemia leading to increased venous return, will complicate MR and increased pulmonary artery pressure. -Diuretics and IV fluids as needed depending on the patient's fluid status. -Continue on metoprolol XL 25 daily -CXR done on 11/10/2024 revealed mild improvement in pulmonary vascular congestions compared to CXR done on 11/09/2024. -Patient has been extubated and on oxygen via Ventimask. Tachypnea and cough has significantly improved that was causing reduced ability to clear his secretions. -Continue to monitor strict ins and outs. Has about 800cc or urine output today, without any lasix. Na - 156 and lasix held -Continue with aspirin 81 Mg daily, atorvastatin 40 Mg daily at night, ferric gluconate 125 Mg IV daily, folic acid 1 mg daily, metoprolol succinate 25 Mg daily, midodrine 5 Mg 3 times daily, and thiamine 100 Mg daily. #Anemia Likely multifactorial in the setting of nutritional deficiency along with iron, vitamin B12 and folic acid deficiency MCV is elevated at 99. Given his severe alcohol abuse patient is probably B12 as well as folate deficient. Patient would benefit from replacement of iron and B12 and folate which will eventually help anemia long-term and improve his tachycardia which would help with his LVOT obstruction and ABBI along with improvement of sepsis and alcohol withdrawal syndrome - Recommended IV iron infusion, vitamin B12 and folic acid #Cirrhosis #Dilated esophageal varices #Hypertensive portal gastropathy 2/2 alcohol abuse disorder -GI Dr. Louis recommended octreotide drip for 5 days. #Acute hypoxic respiratory failure, improving #Septic shock, improved #Aspiration pneumonia, improving #Severe lactic acidosis, imporved Currently, the patient is intubated but saturating on 21% FiO2. Initially, the patient presented with blood pressure of 81/51, pulse 127, RR 40, and white count 33.8 meeting 3/4 SIRS criteria, chest x-ray significant for right sided middle and lower lobe pneumonia, CT chest abdomen and pelvis revealing right middle and lower lobe pneumonia, and left lower lobe pneumonia, and lactic acid level of 16, with endorgan failure as acute hypoxic respiratory failure requiring intubation. Patient received 2.5 L of bolus IV fluid Unable to wean off of mechanical ventilation and was following commands, but BL UE weakness was there so MRI brain was done that revealed: Punctate foci increased signal in the frontal parietal white matter, demyelinating disease pattern - Continue with aggressive IV antibiotics - Blood and urine culture sent, negative so far. - IgM for coccidiomycosis, negative - Pressor support, and recommended to avoid inotropes in the setting of sigmoid interventricular septum complicating Takotsubo syndrome. #NSTEMI type II, improved Likely multifactorial secondary to septic shock, Takotsubo syndrome, sigmoid interventricular septum leading to MR. No significant risk factor for STEMI, except for hypertension, as patient denies smoking or illicit drug use, and lipid panel was significant for LDL 39 and HDL 53. EKG unremarkable for STEMI - Heparin drip stopped - May consider cardiac catheterization after the patient is stable - Aspirin 81 Mg daily - Atorvastatin 40 Mg daily at night Thank you for cardiology consultation. We really appreciate for the opportunity to participate in this patient care. Cardiology team will continue to follow-up on this patient. The patient's management plan was discussed with my attending physician MD Ventura Montes MD, PGY3
--- NOTE | 2024-11-11 16:44 | ESPR_ITS ---
<Statement entered by Vilma Bailey MD - 11/11/24 21:41> In summary: 49-year-old male with a history of hypertension, esophageal cancer (in remission), and chronic alcohol use who presented to the emergency department on November 03, 2024, with progressive weakness, fatigue, and severe shortness of breath. On arrival, he was in respiratory distress with lactic acidosis and required high-flow oxygen. Imaging and bedside echocardiogram revealed evidence of possible heart failure and pneumonia. He was intubated, admitted to the ICU for acute hypoxic respiratory failure, and treated for suspected sepsis and aspiration pneumonia. Over the subsequent days, his course was complicated by gastrointestinal bleeding (melena), suspected decompensated cirrhosis, and hepatic encephalopathy likely related to chronic alcohol use. Liver imaging confirmed cirrhosis and ascites, and endoscopy revealed non-bleeding esophageal varices. Labs revealed leukocytosis, anemia, and hypernatremia. He required lactulose, rifaximin, thiamine, and octreotide for hepatic encephalopathy and variceal bleed prophylaxis. 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 Neurologically, Mr. Trejo initially presented with lethargy and altered mental status. After sedation was discontinued, he gradually became more responsive but had persistent upper extremity weakness. MRI findings showed a demyelinating pattern suggestive of a possible neurologic process such as Wernicke's encephalopathy or another metabolic or inflammatory disorder. Neurology was consulted, and additional workup including EEG and autoantibodies is pending. Cardiac evaluation indicated reduced ejection fraction (35?40%) with suspicion of Takotsubo cardiomyopathy and possible left ventricular outflow tract obstruction. He required vasopressor support early on but was weaned off by November 07. Metoprolol and midodrine were started, and cardiology is following for further evaluation, including consideration of PABLITO or cardiac catheterization. By November 10, Mr. Trejo was extubated and transitioned to oxygen via mask. He continues to produce thick respiratory secretions and requires frequent nebulizer treatments and chest physiotherapy. His respiratory and hemodynamic status have remained stable, and he was downgraded from ICU to telemetry on November 11. He is tolerating tube feeds, but a failed swallow evaluation post-extubation confirms the need for continued enteral nutrition. His care is now focused on continued medical optimization, management of liver disease, and neurologic assessment. Case was discussed with attending physician. Vilma Bailey DO PGY II This document was transcribed using voice recognition technology. Minor inaccuracies may be present. Documentation for date of: 11/11/24 Subjective Subjective Interval history: Mr. Trejo is A 49-year-old man with a history of hypertension and esophageal cancer in remission presented to the emergency department on November 03, 2024, with two weeks of worsening fatigue and new-onset severe shortness of breath. He was tachypneic with a respiratory rate in the 40s and required high-flow oxygen. Labs showed metabolic and lactic acidosis, and imaging revealed possible cardiac dysfunction. He was intubated and admitted to the ICU for acute hypoxic respiratory failure and distributive shock. During his ICU stay, he developed black tarry stools, raising concern for gastrointestinal bleeding. He also experienced alcohol withdrawal, with his sister confirming heavy daily alcohol use. Sedation was managed with phenobarbital, benzodiazepines, and Versed. A limited echocardiogram raised concern for cardiac issues, and he was treated with pressors, diuretics, and started on vitamin supplementation. He remained sedated and lethargic initially, and later a liver ultrasound showed ascites. An EGD revealed non-bleeding esophageal varices. Despite persistent GI symptoms, his hemoglobin remained stable. Neurologically, he became alert but unable to move his upper extremities; MRI showed findings suggestive of a demyelinating process. By November 10, the patient had improved and was successfully extubated. He remained on oxygen, continued to produce thick secretions, and required respiratory therapy. On November 11, although he had worsening leukocytosis, he was afebrile, hemodynamically stable, and downgraded from ICU to telemetry. He continued to be treated for possible GI bleeding, alcohol-related complications, and suspected neurological disease. Exam Vital Signs Temp Pulse Resp BP Pulse Ox O2 Del Method O2 Flow Rate 98 F 102 H 27 H 111/62 99 Oxy Mask 2 11/11/24 12:00 11/11/24 15:11/11/24 15:00 11/11/24 15:00 11/11/24 15:00 11/11/24 08:00 11/11/24 14:43 FiO2 30 11/10/24 10:40 Narrative Exam General: Ill-appearing man, lethargic, cachectic, temporal wasting. Neurologic: GCS 13, following commands. HEENT: Normocephalic, atraumatic, mucous membranes dry. Pupils reactive to light. Heart: Tachycardic, systolic murmur at the mitral listening post left fifth intercostal space sternal border. Lungs: Pectus excavatum, clear to auscultation bilaterally with wheezing B/L Abdomen: Right sided reducible inguinal hernia. Right lower quadrant bruise approximately 5 cm long at the site of heparin SQ inj. Extremities: 1+ pitting edema in the distal upper extremities bilaterally. No edema in the lower extremities bilaterally. 2+ radial and dorsalis pedis pulses bilaterally. Rt knee effusions. Skin: Cool. Dry. No rash. Objective Labs 11/13/24 02:36 11/13/24 12:15 Labs: Laboratory Results - last 24 hr 11/11/24 05:00 WBC 21.1 H RBC 2.64 L Hgb 8.2 L Hct 26.5 L MCV 100 MCH 31.1 MCHC 30.9 L RDW Std Deviation 66.2 H Plt Count 326 D Neut % (Auto) 79 Lymph % (Auto) 7 L [place] % (Auto) 9 Eos % (Auto) 3 Baso % (Auto) 0 Neut # (Auto) 16.7 H Lymph # (Auto) 1.5 [place] # (Auto) 1.8 H Eos # (Auto) 0.7 H Baso # (Auto) 0.1 Immature Gran # (Auto) 0.37 H Absolute Nucleated RBC 0.13 H Immature Gran % 2 H Nucleated RBC % 1 H Sodium 151 H Potassium 3.7 Chloride 111 H Carbon Dioxide 29.5 Anion Gap 11 BUN 13 Creatinine 0.7 Estim Creat Clear Calc 91.8 eGFR > 60 BUN/Creatinine Ratio 19 Glucose 145 H Calculated Osmolality 302 H Calcium 8.1 L Corrected Calcium 8.7 Phosphorus 2.8 Magnesium 2.0 Total Bilirubin 0.4 AST 66 H ALT 73 H Alkaline Phosphatase 119 H Total Creatine Kinase 41 D Total Protein 6.0 Albumin 3.2 L Globulin 2.8 Albumin/Globulin Ratio 1.1 L ABG Interpretation ABG results: 11/03/24 11/03/24 11/03/24 11:20 14:11 17:06 ABG pH 7.35 7.34 L 7.20 L D ABG pCO2 21 L 20 L 45 D ABG pO2 193 H 82 L D 78 L ABG HCO3 12 L 11 L 16 L ABG O2 Saturation 100 H 96 91 ABG Base Excess -12 L -14 L -12 L VBG pH VBG pCO2 VBG pO2 VBG Base Excess 11/04/24 11/04/24 11/04/24 00:00 04:29 05:15 ABG pH 7.50 H D ABG pCO2 30 L D ABG pO2 109 H D ABG HCO3 23 ABG O2 Saturation 100 H ABG Base Excess 1 VBG pH 7.43 7.52 VBG pCO2 35 L 27 L VBG pO2 43 57 VBG Base Excess -1 0 11/05/24 11/06/24 11/06/24 04:49 03:40 21:45 ABG pH 7.48 H 7.41 ABG pCO2 35 43 ABG pO2 74 L D 108 D ABG HCO3 26 27 H ABG O2 Saturation 96 99 H ABG Base Excess 3 2 VBG pH 7.49 VBG pCO2 39 D VBG pO2 39 VBG Base Excess 6 H 11/07/24 11/08/24 11/09/24 05:59 04:19 04:11 ABG pH 7.49 H 7.48 H 7.44 ABG pCO2 39 38 40 ABG pO2 71 L D 77 L 63 L ABG HCO3 29 H 29 H 27 H ABG O2 Saturation 96 97 93 ABG Base Excess 6 H 5 H 3 VBG pH VBG pCO2 VBG pO2 VBG Base Excess 11/10/24 07:02 ABG pH 7.45 ABG pCO2 42 ABG pO2 83 D ABG HCO3 29 H ABG O2 Saturation 98 ABG Base Excess 5 H VBG pH VBG pCO2 VBG pO2 VBG Base Excess Quality Measures Quality Measures sepsis Current suspected stage: ruled out Possible source: pulmonary Blood cultures ordered: completed in ED Antibiotic ordered: Yes Assessment & Plan Assessment Current Active Medications: Generic Name Dose Route Start Last Admin Trade Name Freq PRN Reason Stop Dose Admin Acetaminophen 325 mg 11/05/24 09:48 Acetaminophen 325 Mg Tablet PO 12/03/24 15:31 Q6H PRN Fever >101.5 Acetylcysteine 3 ml 11/11/24 11:00 11/11/24 14:41 Acetylcysteine Rt Anastacia 10% 4 Ml Nebu INH 12/11/24 10:59 3 ml Q4HRRT BETO Administration Albuterol/Ipratropium 3 ml 11/11/24 11:00 11/11/24 14:41 Albuterol/Ipratropium (Duoneb) Rt Anastacia 3 Ml Nebu INH 12/11/24 10:59 3 ml Q4HRRT BETO Administration Aspirin 81 mg 11/11/24 08:25 11/11/24 11:13 Aspirin 81 Mg Chew NG 12/04/24 08:59 81 mg QDAY BETO Administration Atorvastatin Calcium 40 mg 11/11/24 08:25 Atorvastatin Calcium 20 Mg Tablet NG 12/03/24 20:59 HS BETO Folic Acid 1 mg 11/11/24 09:00 11/11/24 11:16 Folic Acid 1 Mg Tablet NG 12/11/24 08:59 1 mg QDAY BETO Administration Octreotide Acetate 1,000 mcg/ 102 mls @ 5.1 mls/hr 11/07/24 10:16 11/11/24 13:17 Sodium Chloride IV 11/12/24 10:15 50 mcg/hr .Q20H BETO 5.1 mls/hr Administration Protocol 50 MCG/HR Ferric Sodium Gluconate 125 mg 110 mls @ 110 mls/hr 11/08/24 17:15 11/11/24 11:32 / Sodium Chloride IV 12/08/24 17:14 110 mls/hr QDAY BETO Administration Lactulose 20 gm 11/07/24 14:00 11/11/24 13:17 Lactulose Syrup 20 Gm/30 Ml Udc NG 12/07/24 13:59 20 gm TID BETO Administration Protocol Metoprolol Succinate 25 mg 11/11/24 09:00 11/11/24 11:13 Metoprolol Succinate Xl 25 Mg Tabcr NG 12/10/24 10:59 25 mg QDAY BETO Administration Midodrine 5 mg 11/11/24 08:26 11/11/24 13:17 Midodrine 5 Mg Tablet NG 12/07/24 13:59 5 mg TID BETO Administration Multivitamins/Minerals 15 ml 11/11/24 09:00 11/11/24 11:12 Multivitamin 15 Ml Udc NG 12/11/24 08:59 15 ml QDAY BETO Administration Ondansetron HCl 4 mg 11/03/24 15:32 Ondansetron Inj 2 Mg/Ml Inj 2 Ml IVP 12/03/24 15:31 Q6H PRN NAUSEA OR VOMITING Protocol Pantoprazole Sodium 40 mg 11/05/24 21:00 11/11/24 11:11 Pantoprazole Inj 40 Mg Vial IVP 12/05/24 20:59 40 mg BID BETO Administration Rifaximin 550 mg 11/08/24 13:45 11/11/24 11:13 Rifaximin 550 Mg Tablet PO 11/15/24 13:44 550 mg BID BETO Administration Sennosides 1 tab 11/04/24 09:00 11/11/24 11:12 Senna Tablet PO 12/04/24 08:59 1 tab QDAY BETO Administration Protocol Sodium Chloride 3 ml 11/03/24 10:58 Sodium Chloride Rt Anastacia 0.9% 3 Ml Nebu INH 12/03/24 10:57 PRN PRN SOLN Thiamine HCl 100 mg 11/11/24 09:00 11/11/24 11:12 Thiamine 100 Mg Tablet NG 12/11/24 08:59 100 mg QDAY BETO Administration Plan Summary: Mr. Trejo is a 49-year-old male with past medical history of hypertension and personal history of esophageal cancer status post-treatment in remission who presented to [facility] emergency department on 11/03/2024 with a chief complaint of weakness and shortness of breath. Neuro #Acute encephalopathy most likely hepatic versus metabolic versus focal neurological deficit versus less likely anoxic encephalopathy #Alcohol withdrawal (resolved) #Questionable Warnicke encephalopathy #Generalized weakness #Demyelinating disease pattern on MRI - Patient is cachectic with temporal wasting, and BMI of 18.3 kg/m. Patient has been off of sedation for 4 days - Consider hepatic encephalopathy in the setting of alcohol use, Imaging showed irregular liver contour, Ammonia was 78 on presentation. has LGIB. - MRI of the head showed punctate foci with increased signal in the frontal parietal white matter, demyelinating disease pattern possible. Low likelihood of esophageal cancer metastasis. - Neurology on board. Plan: - Thiamine, folate and multivitamin - Lactulose 20 GM p.o. 3 times daily, goal of 3-4 BM per day - Rifxamin 550mg BID - Pending EEG - Neurology consulted, acetylcholine receptor antibody ordered Cardiac #HFrEF, EF 35 to 40% #Suspicion of Takotsubo cardiomyopathy #Possible LVOT obstruection 05/31 [facility] - Echo 11/03/2024 showed ejection fraction 35 to 40%, decreased apical motion - Appears intravascularly dry evidenced by hypernatremia and lack of edema on physical exam Plan: - Continue on metoprolol succinate 25 mg daily - Continue midodrine 5 mg p.o. 3 times daily - Cardiology consulted, appreciate recommendations - Cardiology to consider PABLITO/cardiac cath #NSTEMI type II most likely type I, resolved - Trop i peak 4.326, downtrended subsequntly. # Distributive shock, secondary to sepsis, septic shock secondary to aspiration pneumonia, resolved Pulmonary #Acute hypoxic respiratory failure secondary to pneumonia, respiratory failure in setting of shock #Status post extubation 11/10/2024 #Aspiration pneumonia Differential diagnosis: - Consider aspiration pneumonia in the presence of dysphagia due to history of esophageal cancer Diagnostic workup: - Initial ABG shows pH 7.35, pCO2 21, pO2 193, bicarb 12, patient on high flow nasal cannula in ED, significantly tachypneic, increased work of breathing, respiratory rate in 40s, accessory muscle use noted. - ABG 11/11/2024 pH 7.45, CO2 42, PaO2 83, HCO3 29 - Patient denies any sick contacts, although CTA shows significant right-sided pneumonia and left base pneumonia - Bedside flu, COVID negative, cocci IgM negative, MRSA nasal screen negative, Blood cultures negative -Thick excessive secretions Plan: - Chest PT - Scheduled DuoNebs Q4, scheduled albuterol/ipratropium Q4 Gastrointestinal #Decompensated cirrhosis 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 #Transaminitis #Suspected hepatic encephalopathy #GI bleed workup #Melena Diagnostic workup: - CTA abdomen showed evidence of cirrhosis - Per the patient's family member the patient consumes 2 bottles of hard alcohol on a daily basis in addition to beer, Hepatitis panel negative - CT chest abdomen pelvis showed cirrhosis - AST 66 ALT 73 11/11/2024, has been downtrending - MELD score of 7, 1.9% estimated 3-month mortality - Child-Pug Score: 8 - Official liver ultrasound today shows ascites - EGD 11/07/2024 showed grade 1 esophageal varices, 2+ esophageal varices not large enough for band ligation Plan: - Continue folate and thiamine - Continue lactulose 20 GM p.o. 3 times daily, titrate to 4-5 bowel movements - Continue octreotide gtt for 5 days started on the 11/07/2024 ends in 11/12/2024 - Continue Protonix twice daily - Hb daily monitor #Personal history of esophageal cancer, in remission Differential diagnosis: Patient is status post esophagectomy Diagnostic workup: - Patient reported self history of esophageal cancer reports completed treatment heart disease in remission - History of esophagectomy, there is suspicion of underlying dysphagia Follow-up: - Failed swallow eval postextubation - Continue tube feeds #Large right inguinal hernia #Dilated bowel loops Differential diagnosis: Incarcerated hernia. Diagnostic workup: - On physical exam hernia is reducible, low suspicion of incarceration - CTA abdomen pelvis shows large right inguinal hernia noted on imaging as well, no radiological signs of incarceration Treatment: - General Surgery consulted, no surgical intervention needed in this admission, can follow up o/p Renal/Genitourinary #Hypernatremia Differential diagnosis: Hypovolemia - Was given IV fluid in the emergency department in addition to Lasix Diagnostic workup: - Na 151 11/11/2024 Plan: - Increased free water flush volume from 125 to 175 - Continue to monitor urine output - Follow sodium in a.m. #Hypokalemia (Resolved) #Lactic acidosis, (Resolved) #High anion gap metabolic acidosis, (Resolved) Endocrine No active problems Hematology #Leukocytosis #Low-grade temperature (resolved) Diagnostic workup: - WBC 21.1 morning of 11/11/2024 - Consider acute phase reaction in combination with stress dose steroids Treatment: - Follow CBC #Normocytic normochromic anemia versus iron deficiency anemia Differential diagnosis: Nutritional deficiency, in the setting of sepsis, GI bleed, low suspicion of hemolysis Diagnostic workup: - Hemoglobin 8.1 on presentation - Hemoglobin 8.2 hematocrit 26.5 11/11/2024 - Iron level 19 on 11/07/2024 Treatment: - First dose ferric Sod Glut 125 mg received 11/08/2024, 5-day course, will continue on transfer to telemetry med - Follow CBC in a.m. - Continue folic acid and multivitamin #Thrombocytosis, (Resolved) Infectious Disease #Pneumonia Diagnostic workup: - Chest x-ray significant for bibasilar infiltrates Plan: -Completed treatment with Zosyn and ceftriaxone DVT prophylaxis: SCDs GI prophylaxis: IV Protonix twice a day Diet: NPO Tubes: Lines: Peripheral IV, right IJ triple-lumen Code status: Full code Dispo: Patient awake and following commands. On oxygen mask. Patient still has thick secretions and requires scheduled breathing treatments and chest physical therapy. Will downgrade to telemetry. The patient was seen and discussed with my attending physician Dr Curry and my senior residents Dr. Lynn Andersonan DO PGY-1. Attending Provider Attestation/Addendum Recently in the ICU with respiratory failure status post mechanical ventilation, elevated troponin probable demand ischemia treated for pneumonia with IV antibiotics. He has a large inguinal hernia currently being treated conservatively. He will need to be monitored for his sodium level. Discussed with housestaff.
--- NOTE | 2024-11-11 17:42 | XR_ITS ---
Examination: AP chest single view TECHNIQUE: AP portable semiupright chest single view Date and time: November 11, 2024 1812 hours INDICATIONS: Adjustment orogastric tube. FINDINGS: Orogastric tube tip distal stomach satisfactory position Mild enlargement cardiac contour with pulmonary vascular congestion and edema and/or pneumonia throughout the lung rae The patient has been extubated compared to November 10, 2024 IMPRESSION: The orogastric tube tip distal stomach satisfactory position
--- NOTE | 2024-11-11 20:32 | PD.IMPROG ---
Documentation for date of: 11/11/24 Subjective Subjective Interval history: Patient evaluated Hemoglobin hematocrit 8.2 and 26.5 upper endoscopy showed 1-2+ esophageal varices not large enough for band ligation Exam Vital Signs Temp Pulse Resp BP Pulse Ox O2 Del Method O2 Flow Rate 98 F 103 H 26 H 111/62 93 L Oxy Mask 10 11/11/24 16:00 11/11/24 18:44 11/11/24 18:44 11/11/24 16:00 11/11/24 18:44 11/11/24 16:00 11/11/24 18:44 FiO2 30 11/10/24 10:40 Objective Labs 11/11/24 05:00 11/11/24 05:00 Labs: Laboratory Results - last 24 hr 11/11/24 05:00 WBC 21.1 H RBC 2.64 L Hgb 8.2 L Hct 26.5 L MCV 100 MCH 31.1 MCHC 30.9 L RDW Std Deviation 66.2 H Plt Count 326 D Neut % (Auto) 79 Lymph % (Auto) 7 L [place] % (Auto) 9 Eos % (Auto) 3 Baso % (Auto) 0 Neut # (Auto) 16.7 H Lymph # (Auto) 1.5 [place] # (Auto) 1.8 H Eos # (Auto) 0.7 H Baso # (Auto) 0.1 Immature Gran # (Auto) 0.37 H Absolute Nucleated RBC 0.13 H Immature Gran % 2 H Nucleated RBC % 1 H Sodium 151 H Potassium 3.7 Chloride 111 H Carbon Dioxide 29.5 Anion Gap 11 BUN 13 Creatinine 0.7 Estim Creat Clear Calc 91.8 eGFR > 60 BUN/Creatinine Ratio 19 Glucose 145 H Calculated Osmolality 302 H Calcium 8.1 L Corrected Calcium 8.7 Phosphorus 2.8 Magnesium 2.0 Total Bilirubin 0.4 AST 66 H ALT 73 H Alkaline Phosphatase 119 H Total Creatine Kinase 41 D Total Protein 6.0 Albumin 3.2 L Globulin 2.8 Albumin/Globulin Ratio 1.1 L Impressions Impression: 1-2 per esophageal varices not large enough for band ligation Hypertensive portal gastropathy Abnormal LFTs due to hypoxic hepatitis resolving Continue current management ABG Interpretation ABG results: 11/03/24 11/03/24 11/03/24 11:20 14:11 17:06 ABG pH 7.35 7.34 L 7.20 L D ABG pCO2 21 L 20 L 45 D ABG pO2 193 H 82 L D 78 L ABG HCO3 12 L 11 L 16 L ABG O2 Saturation 100 H 96 91 ABG Base Excess -12 L -14 L -12 L VBG pH VBG pCO2 VBG pO2 VBG Base Excess 11/04/24 11/04/24 11/04/24 00:00 04:29 05:15 ABG pH 7.50 H D ABG pCO2 30 L D ABG pO2 109 H D ABG HCO3 23 ABG O2 Saturation 100 H ABG Base Excess 1 VBG pH 7.43 7.52 VBG pCO2 35 L 27 L VBG pO2 43 57 VBG Base Excess -1 0 11/05/24 11/06/24 11/06/24 04:49 03:40 21:45 ABG pH 7.48 H 7.41 ABG pCO2 35 43 ABG pO2 74 L D 108 D ABG HCO3 26 27 H ABG O2 Saturation 96 99 H ABG Base Excess 3 2 VBG pH 7.49 VBG pCO2 39 D VBG pO2 39 VBG Base Excess 6 H 11/07/24 11/08/24 11/09/24 05:59 04:19 04:11 ABG pH 7.49 H 7.48 H 7.44 ABG pCO2 39 38 40 ABG pO2 71 L D 77 L 63 L ABG HCO3 29 H 29 H 27 H ABG O2 Saturation 96 97 93 ABG Base Excess 6 H 5 H 3 VBG pH VBG pCO2 VBG pO2 VBG Base Excess 11/10/24 07:02 ABG pH 7.45 ABG pCO2 42 ABG pO2 83 D ABG HCO3 29 H ABG O2 Saturation 98 ABG Base Excess 5 H VBG pH VBG pCO2 VBG pO2 VBG Base Excess Assessment & Plan A&P Narrative 49 years old male with acute respiratory failure bilateral pneumonia acute coronary syndrome mechanically ventilated with previous history of Esophageal carcinoma status posttreatment and supposedly in remission Difficulty placing the NGT only OGT in Plan Will attempt to place a 14 [place] NGT either via nasogastric approach or oral approach Will follow the patient # Transaminitis most likely due to hypoxic hepatitis Thank you very much for the opportunity to participate in the care of this patient Time Spent With Patient Time: Total time spent is greater than 50% in coordination of care (as documented) at patient's floor/unit and/or counseling patient:
[2024-11-11] MEDS: ATORVASTATIN CALCIUM 20 MG TABLET 40 MG NG (21:22)
[2024-11-11 23:59] LABS: Sodium 151 mMol/L (136-145)
[2024-11-12] VITALS (17 sets, daily range): BP systolic 100–128; BP diastolic 59–76; PULSE 92–106; RESP 18–26; TEMP 36.6–37.1; O2SAT 94–100; BMI 21.4
[2024-11-12] MEDS: ACETYLCYSTEINE RT SOL 10% 4 ML NEBU 3 ML INH ×6 (02:13→22:19)
[2024-11-12] MEDS: ALBUTEROL/IPRATROPIUM (Duoneb) RT SOL 3 ML NEBU INH ×6 (02:14→22:19)
[2024-11-12 03:32] LABS: Basophils # (Auto) 0.0 Thou/mm3 (0.0-0.2); Basophils % (Auto) 0 % (0-2.5); Eosinophils # (Auto) 0.5 Thou/mm3 (0.0-0.5); Eosinophils % (Auto) 3 % (0-10); Hematocrit 25.4 % (41.0-53.0); Hemoglobin 7.9 g/dL (13.5-16.0); Immature Granulocytes Auto 0.17 Thou/mm3 (0.00-0.00); Lymphocytes # (Auto) 1.4 Thou/mm3 (1.0-4.8); Lymphocytes % (Auto) 9 % (10-50); Mean Corpuscular HGB Conc 31.1 g/dl (31.0-37.0); Mean Corpuscular Hemoglobin 31.0 pg (25.0-35.0); Mean Corpuscular Volume 100 fL (80-100); Monocytes # (Auto) 1.2 Thou/mm3 (0.0-0.8); Monocytes % (Auto) 7 % (0-12); Neutrophils # (Auto) 13.1 Thou/mm3 (1.8-7.7); Neutrophils % (Auto) 80 % (37-80); Nucleated Red Blood Cell # 0.08 Thou/mm3 (0.00-0.00); Nucleated Red Blood Cell % 1 /100 WBC (0); Platelet Count 301 Thou/mm3 (140-440); RDW Standard Deviation 68.8 fL (35.1-43.9); Red Blood Count 2.55 Miln/mm3 (4.50-5.90); White Blood Count 16.5 Thou/mm3 (3.8-10.6)
[2024-11-12 03:51] LABS: Alanine Aminotransferase 62 U/L (10-49); Albumin, Serum 3.2 gm/dL (3.5-5.0); Albumin/Globulin Ratio 1.1 (1.2-2.2); Alkaline Phosphatase 119 U/L (46-116); Anion Gap 9 (7-16); Aspartate Amino Transferase 54 U/L (0-34); BUN/Creatinine Ratio 16 Ratio (12-20); Bilirubin,Total 0.3 mg/dL (0.3-1.2); Blood Urea Nitrogen 13 mg/dL (9-23); Calcium 7.9 mg/dL (8.3-10.6); Calcium (Corrected) 8.5 mg/dL (8.5-10.1); Carbon Dioxide 29.5 mMol/L (20.0-31.0); Chloride 114 mMol/L (98-107); Creatinine (Component) 0.8 mg/dL (0.6-1.3); Estimated Creatinine Clearance 80.3 mL/min (>60); Globulin 2.8 gm/dL (2.3-3.5); Glucose 158 mg/dL (74-106); Magnesium 1.9 mg/dL (1.6-2.6); Osmolality,Calculated 304 (275-295); Phosphorous 2.6 mg/dL (2.4-5.1); Potassium 3.7 mMol/L (3.4-5.1); Sodium 152 mMol/L (136-145); Total Protein 6.0 gm/dL (5.7-8.2); eGFR > 60 See Note
[2024-11-12] MEDS: MIDODRINE 5 MG TABLET NG ×3 (05:58→21:02)
[2024-11-12] MEDS: INSULIN LISPRO (AdmeLOG) 1 UNIT/0.01 ML UNIT SC ×2 (05:58→12:30)
[2024-11-12] MEDS: LACTULOSE SYRUP 20 GM/30 ML UDC NG ×2 (05:58→15:24)
[2024-11-12 07:38] LABS: Sodium 151 mMol/L (136-145)
--- NOTE | 2024-11-12 07:56 | ESPR_ITS ---
<Statement entered by Vilma Bailey MD - 11/13/24 18:18> A 49-year-old male with a history of hypertension, esophageal cancer (in remission), and chronic alcohol use presented on November 03, 2024, with progressive weakness, fatigue, and severe shortness of breath. He was intubated for acute respiratory failure and distributive versus septic shock in settings of severe pneumonia which has since resolved.. His condition worsened with gastrointestinal bleeding, suspected cirrhosis, and hepatic encephalopathy. Liver imaging confirmed cirrhosis and ascites, and he was treated for alcohol-related liver disease. Neurologically, he had lethargy and upper extremity weakness, with MRI suggesting a demyelinating process. Cardiac evaluation showed reduced ejection fraction and possible Takotsubo cardiomyopathy, requiring early vasopressor support. By November 10, he was extubated and transitioned to oxygen. EKG showed deep T wave inversion in lateral leads and inverted T waves in lead I and aVL. He did have an NSTEMI type II on admission. However, additional echo findings included sigmoid interventricular septum, moderate to severe eccentric MR, moderate to severe PAH, HFrEF with apical akinesis. For this, cardiology is planning on cath possibly Saturday or Saturday. We've been treating hypernatremia which had resolved with IV NS. Now encouraging oral intake and fluids. Mentation over all improving, he is more awake and responsive, tolerating oral intake. Mucous secretion overall improved with MUCINEX and DuoNebs. Hemoglobin has been stable around 8.0. Pancultures have been negative. Case was discussed with attending physician. Vilma Bailey DO PGY II This document was transcribed using voice recognition technology. Minor inaccuracies may be present. Documentation for date of: 11/12/24 Subjective Subjective Interval history: 11/12: Patient was seen and examined at bedside. No acute events took place overnight. Patient is lethargic and weak. Open eyes and answers by nodding partly impeded by facial oxymask. Per nurse, yellow stool collected this AM with no evidence of blood. Pt receives supplemental nutrition through NG tube. Mr. Trejo is A 49-year-old man with a history of HTN and esophageal cancer in remission presented to the emergency department on November 03, 2024, with two weeks of worsening fatigue and new-onset severe shortness of breath. He was tachypneic with a respiratory rate in the 40s and required high-flow oxygen. Labs showed metabolic and lactic acidosis, and imaging revealed possible cardiac dysfunction. He was intubated and admitted to the ICU for acute hypoxic respiratory failure and distributive shock. During his ICU stay, he developed black tarry stools, raising concern for gastrointestinal bleeding. He also experienced alcohol withdrawal, with his sister confirming heavy daily alcohol use. Sedation was managed with phenobarbital, benzodiazepines, and Versed. A limited echocardiogram raised concern for cardiac issues, and he was treated with pressors, diuretics, and started on vitamin supplementation. He remained sedated and lethargic initially, and later a liver ultrasound showed ascites. An EGD revealed non-bleeding esophageal varices. Despite persistent GI symptoms, his hemoglobin remained stable. Neurologically, he became alert but unable to move his upper extremities; MRI showed findings suggestive of a demyelinating process. By November 10, the patient had improved and was successfully extubated. He remained on oxygen, continued to produce thick secretions, and required respiratory therapy. On November 11, although he had worsening leukocytosis, he was afebrile, hemodynamically stable, and downgraded from ICU to telemetry. He continued to be treated for possible GI bleeding, alcohol-related complications, and suspected neurological disease. Exam Vital Signs Temp Pulse Resp BP Pulse Ox O2 Del Method O2 Flow Rate 98.6 F 103 H 20 109/64 95 Oxy Mask 4 11/12/24 04:00 11/12/24 07:21 11/12/24 07:21 11/12/24 05:58 11/12/24 07:21 11/12/24 04:00 11/12/24 07:21 FiO2 99 11/12/24 07:21 Narrative Exam General: Ill-appearing man, lethargic, cachectic, temporal wasting. Neurologic: GCS 13, following commands. HEENT: Normocephalic, atraumatic, mucous membranes dry. Pupils reactive to light. Heart: Tachycardic, systolic murmur at the mitral listening post left fifth intercostal space sternal border. Lungs: Pectus excavatum, clear to auscultation bilaterally with wheezing B/L Abdomen: Right sided reducible inguinal hernia. Right lower quadrant bruise approximately 5 cm long at the site of heparin SQ inj. Extremities: 1+ pitting edema in the distal upper extremities bilaterally. No edema in the lower extremities bilaterally. 2+ radial and dorsalis pedis pulses bilaterally. Rt knee effusions. Skin: Cool. Dry. No rash. Objective Labs 11/13/24 02:36 11/13/24 12:15 Labs: Laboratory Results - last 24 hr 11/11/24 11/12/24 11/12/24 23:24 03:20 07:10 WBC 16.5 H RBC 2.55 L Hgb 7.9 L Hct 25.4 L MCV 100 MCH 31.0 MCHC 31.1 RDW Std Deviation 68.8 H Plt Count 301 Neut % (Auto) 80 Lymph % (Auto) 9 L Brantley % (Auto) 7 Eos % (Auto) 3 Baso % (Auto) 0 Neut # (Auto) 13.1 H Lymph # (Auto) 1.4 Brantley # (Auto) 1.2 H Eos # (Auto) 0.5 Baso # (Auto) 0.0 Immature Gran # (Auto) 0.17 H Absolute Nucleated RBC 0.08 H Immature Gran % 1 H Nucleated RBC % 1 H Sodium 151 H 152 H 151 H Potassium 3.7 Chloride 114 H Carbon Dioxide 29.5 Anion Gap 9 BUN 13 Creatinine 0.8 Estim Creat Clear Calc 80.3 eGFR > 60 BUN/Creatinine Ratio 16 Glucose 158 H Calculated Osmolality 304 H Calcium 7.9 L Corrected Calcium 8.5 Phosphorus 2.6 Magnesium 1.9 Total Bilirubin 0.3 AST 54 H ALT 62 H Alkaline Phosphatase 119 H Total Protein 6.0 Albumin 3.2 L Globulin 2.8 Albumin/Globulin Ratio 1.1 L ABG Interpretation ABG results: 11/03/24 11/03/24 11/03/24 11:20 14:11 17:06 ABG pH 7.35 7.34 L 7.20 L D ABG pCO2 21 L 20 L 45 D ABG pO2 193 H 82 L D 78 L ABG HCO3 12 L 11 L 16 L ABG O2 Saturation 100 H 96 91 ABG Base Excess -12 L -14 L -12 L VBG pH VBG pCO2 VBG pO2 VBG Base Excess 11/04/24 11/04/24 11/04/24 00:00 04:29 05:15 ABG pH 7.50 H D ABG pCO2 30 L D ABG pO2 109 H D ABG HCO3 23 ABG O2 Saturation 100 H ABG Base Excess 1 VBG pH 7.43 7.52 VBG pCO2 35 L 27 L VBG pO2 43 57 VBG Base Excess -1 0 11/05/24 11/06/24 11/06/24 04:49 03:40 21:45 ABG pH 7.48 H 7.41 ABG pCO2 35 43 ABG pO2 74 L D 108 D ABG HCO3 26 27 H ABG O2 Saturation 96 99 H ABG Base Excess 3 2 VBG pH 7.49 VBG pCO2 39 D VBG pO2 39 VBG Base Excess 6 H 11/07/24 11/08/24 11/09/24 05:59 04:19 04:11 ABG pH 7.49 H 7.48 H 7.44 ABG pCO2 39 38 40 ABG pO2 71 L D 77 L 63 L ABG HCO3 29 H 29 H 27 H ABG O2 Saturation 96 97 93 ABG Base Excess 6 H 5 H 3 VBG pH VBG pCO2 VBG pO2 VBG Base Excess 11/10/24 07:02 ABG pH 7.45 ABG pCO2 42 ABG pO2 83 D ABG HCO3 29 H ABG O2 Saturation 98 ABG Base Excess 5 H VBG pH VBG pCO2 VBG pO2 VBG Base Excess Quality Measures Quality Measures sepsis Current suspected stage: ruled out Possible source: pulmonary Blood cultures ordered: completed in ED Antibiotic ordered: Yes Assessment & Plan Assessment Current Active Medications: Generic Name Dose Route Start Last Admin Trade Name Freq PRN Reason Stop Dose Admin Acetaminophen 325 mg 11/05/24 09:48 Acetaminophen 325 Mg Tablet PO 12/03/24 15:31 Q6H PRN Fever >101.5 Acetylcysteine 3 ml 11/11/24 11:00 11/12/24 07:21 Acetylcysteine Rt Anastacia 10% 4 Ml Nebu INH 12/11/24 10:59 3 ml Q4HRRT BETO Administration Albuterol/Ipratropium 3 ml 11/11/24 11:00 11/12/24 07:21 Albuterol/Ipratropium (Duoneb) Rt Anastacia 3 Ml Nebu INH 12/11/24 10:59 3 ml Q4HRRT EBTO Administration Aspirin 81 mg 11/11/24 08:25 11/11/24 11:13 Aspirin 81 Mg Chew NG 12/04/24 08:59 81 mg QDAY BEOT Administration Atorvastatin Calcium 40 mg 11/11/24 08:25 11/11/24 21:22 Atorvastatin Calcium 20 Mg Tablet NG 12/03/24 20:59 40 mg HS BETO Administration Dextrose 25 ml 11/11/24 16:45 Dextrose 50%-Water Inj 50 Ml Syringe IV 12/11/24 16:44 Q15MIN PRN BG 50-70 responsive npo pt Dextrose 50 ml 11/11/24 16:45 Dextrose 50%-Water Inj 50 Ml Syringe IV 12/11/24 16:44 Q15MIN PRN BG <50 OR BG <70 & pt unresponsive Folic Acid 1 mg 11/11/24 09:00 11/11/24 11:16 Folic Acid 1 Mg Tablet NG 12/11/24 08:59 1 mg QDAY BETO Administration Glucagon 1 mg 11/11/24 16:45 Glucagon Inj 1 Mg Vial IM Q15MIN PRN BG <70, and no IV access Octreotide Acetate 1,000 mcg/ 102 mls @ 5.1 mls/hr 11/07/24 10:16 11/11/24 13:17 Sodium Chloride IV 11/12/24 10:15 50 mcg/hr .Q20H BETO 5.1 mls/hr Administration Protocol 50 MCG/HR Ferric Sodium Gluconate 125 mg 110 mls @ 110 mls/hr 11/08/24 17:15 11/11/24 11:32 / Sodium Chloride IV 12/08/24 17:14 110 mls/hr QDAY BETO Administration Dextrose/Sodium Chloride 1,000 mls @ 54 mls/hr 11/12/24 07:50 D5-1/2ns IV 12/12/24 07:49 .[id number] [facility] Insulin Human Lispro 0 unit 11/12/24 00:00 11/12/24 05:58 Insulin Lispro (Admelog) 1 Unit/0.01 Ml Unit SC 12/12/24 00:00 1 unit Q6HR [facility] Administration Protocol Lactulose 20 gm 11/07/24 14:00 11/12/24 05:58 Lactulose Syrup 20 Gm/30 Ml Udc NG 12/07/24 13:59 20 gm TID BETO Administration Protocol Metoprolol Succinate 25 mg 11/11/24 09:00 11/11/24 11:13 Metoprolol Succinate Xl 25 Mg Tabcr NG 12/10/24 10:59 25 mg QDAY BETO Administration Midodrine 5 mg 11/11/24 08:26 11/12/24 05:58 Midodrine 5 Mg Tablet NG 12/07/24 13:59 5 mg TID BETO Administration Multivitamins/Minerals 15 ml 11/11/24 09:00 11/11/24 11:12 Multivitamin 15 Ml Udc NG 12/11/24 08:59 15 ml QDAY BETO Administration Ondansetron HCl 4 mg 11/03/24 15:32 Ondansetron Inj 2 Mg/Ml Inj 2 Ml IVP 12/03/24 15:31 Q6H PRN NAUSEA OR VOMITING Protocol Pantoprazole Sodium 40 mg 11/05/24 21:00 11/11/24 21:22 Pantoprazole Inj 40 Mg Vial IVP 12/05/24 20:59 40 mg BID BETO Administration Rifaximin 550 mg 11/08/24 13:45 11/11/24 21:22 Rifaximin 550 Mg Tablet PO 11/15/24 13:44 550 mg BID BTEO Administration Sennosides 1 tab 11/04/24 09:00 11/11/24 11:12 Senna Tablet PO 12/04/24 08:59 1 tab QDAY BETO Administration Protocol Sodium Chloride 3 ml 11/03/24 10:58 Sodium Chloride Rt Anastacia 0.9% 3 Ml Nebu INH 12/03/24 10:57 PRN PRN SOLN Thiamine HCl 100 mg 11/11/24 09:00 11/11/24 11:12 Thiamine 100 Mg Tablet NG 12/11/24 08:59 100 mg QDAY BETO Administration Plan Summary: Mr. Trejo is a 49-year-old male with past medical history of hypertension and personal history of esophageal cancer status post-treatment in remission who presented to [facility] emergency department on 11/03/2024 with a chief complaint of weakness and shortness of breath. #Acute encephalopathy most likely hepatic versus metabolic versus focal neurological deficit versus less likely anoxic encephalopathy #Questionable Warnicke encephalopathy #Generalized weakness #Demyelinating disease pattern on MRI - Patient is cachectic with temporal wasting, and BMI of 18.3 kg/m. Patient has been off of sedation for 4 days - Consider hepatic encephalopathy in the setting of alcohol use, Imaging showed irregular liver contour, Ammonia was 78 on presentation. has LGIB. - MRI of the head showed punctate foci with increased signal in the frontal parietal white matter, demyelinating disease pattern possible. Low likelihood of esophageal cancer metastasis. - Neurology on board. Plan: - Thiamine, folate and multivitamin - Lactulose 20 GM p.o. 3 times daily, goal of 3-4 BM per day - Rifxamin 550mg BID - Pending EEG - Neurology consulted, acetylcholine receptor antibody ordered #HFrEF, EF 35 to 40% #Suspicion of Takotsubo cardiomyopathy #Possible LVOT obstruection 05/31 [facility] - Echo 11/03/2024 showed ejection fraction 35 to 40%, decreased apical motion - Appears intravascularly dry evidenced by hypernatremia and lack of edema on physical exam Plan: - Continue on metoprolol succinate 25 mg daily - Continue midodrine 5 mg p.o. 3 times daily - Cardiology consulted, appreciate recommendations - Cardiology to consider PABLITO/cardiac cath #Aspiration pneumonia Differential diagnosis: - Consider aspiration pneumonia in the presence of dysphagia due to history of esophageal cancer Diagnostic workup: - Chest x-ray significant for bibasilar infiltrates - Initial ABG shows pH 7.35, pCO2 21, pO2 193, bicarb 12, patient on high flow nasal cannula in ED, significantly tachypneic, increased work of breathing, respiratory rate in 40s, accessory muscle use noted. - ABG 11/11/2024 pH 7.45, CO2 42, PaO2 83, HCO3 29 - Patient denies any sick contacts, although CTA shows significant right-sided pneumonia and left base pneumonia - Bedside flu, COVID negative, cocci IgM negative, MRSA nasal screen negative, Blood cultures negative -Thick excessive secretions Plan: - Completed treatment with Zosyn and ceftriaxone - Chest PT - Scheduled DuoNebs Q4, scheduled albuterol/ipratropium Q4 #Leukocytosis Diagnostic workup: - WBC 21.1 morning of 11/11/2024 - Consider acute phase reaction in combination with stress dose steroids Treatment: - Follow CBC #Decompensated cirrhosis 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 #Transaminitis #Suspected hepatic encephalopathy #GI bleed workup #Melena Diagnostic workup: - CTA abdomen showed evidence of cirrhosis - Per the patient's family member the patient consumes 2 bottles of hard alcohol on a daily basis in addition to beer, Hepatitis panel negative - CT chest abdomen pelvis showed cirrhosis - AST 66 ALT 73 11/11/2024, has been downtrending - MELD score of 7, 1.9% estimated 3-month mortality - Child-Pug Score: 8 - Official liver ultrasound today shows ascites - EGD 11/07/2024 showed grade 1 esophageal varices, 2+ esophageal varices not large enough for band ligation Plan: - Continue folate and thiamine - Continue lactulose 20 GM p.o. 3 times daily, titrate to 4-5 bowel movements - Continue octreotide gtt for 5 days started on the 11/07/2024 ends in 11/12/2024 - Continue Protonix twice daily - Hb daily monitor #Personal history of esophageal cancer, in remission Differential diagnosis: Patient is status post esophagectomy Diagnostic workup: - Patient reported self history of esophageal cancer reports completed treatment heart disease in remission - History of esophagectomy, there is suspicion of underlying dysphagia Follow-up: - Failed swallow eval postextubation - Continue tube feeds #Large right inguinal hernia #Dilated bowel loops Differential diagnosis: Incarcerated hernia. Diagnostic workup: - On physical exam hernia is reducible, low suspicion of incarceration - CTA abdomen pelvis shows large right inguinal hernia noted on imaging as well, no radiological signs of incarceration Treatment: - General Surgery consulted, no surgical intervention needed in this admission, can follow up o/p #Hypernatremia Differential diagnosis: Hypovolemia - Was given free water flushes Diagnostic workup: - Na 152 11/11/2024 - Pt free water deficit calculated to be 2.64L Plan: - Correction with the goal of achieving normal range natremia in 72h with IV [id number] - Continue to monitor urine output - Follow sodium in a.m. #Normocytic normochromic anemia versus iron deficiency anemia Differential diagnosis: Nutritional deficiency, in the setting of sepsis, GI bleed, low suspicion of hemolysis Diagnostic workup: - Hemoglobin 8.1 on presentation - Hemoglobin 8.2 hematocrit 26.5 11/11/2024 - Iron level 19 on 11/07/2024 Treatment: - First dose ferric Sod Glut 125 mg received 11/08/2024, 5-day course, will continue on transfer to telemetry med - Follow CBC in a.m. - Continue folic acid and multivitamin #Alcohol withdrawal (resolved) #NSTEMI type II most likely type I, resolved - Trop i peak 4.326, downtrended subsequntly. # Distributive shock, secondary to sepsis, septic shock secondary to aspiration pneumonia, resolved #Acute hypoxic respiratory failure secondary to pneumonia, respiratory failure in setting of shock (resolved) #Status post extubation 11/10/2024 #Hypokalemia (Resolved) #Lactic acidosis, (Resolved) #High anion gap metabolic acidosis, (Resolved) #Thrombocytosis, (Resolved) DVT prophylaxis: SCDs GI prophylaxis: IV Protonix twice a day Diet: NPO Tubes: Lines: Peripheral IV, right IJ triple-lumen Code status: Full code Dispo: Patient awake and following commands. On oxygen mask. Patient still has thick secretions and requires scheduled breathing treatments and chest physical therapy. Will downgrade to telemetry. The patient was seen and discussed with my attending physician Dr Curry and my senior residents Dr. Lynn Pelayo DO PGY-1. Attending Provider Attestation/Addendum Patient was recently in the ICU with respiratory failure status post mechanical ventilation, pneumonia, alcohol withdrawal, lactic acidosis, hypernatremia. Patient is clinically is slowly improving. He has stable vital signs. No increasing oxygen requirement. I discussed with and supervised the resident physician who took care of this patient. I agree with the assessment and plan as above.
[2024-11-12] MEDS: MULTIVITAMIN 15 ML UDC NG (09:47)
[2024-11-12] MEDS: ASPIRIN 81 MG CHEW NG (09:47)
[2024-11-12] MEDS: FOLIC ACID 1 MG TABLET NG (09:47)
[2024-11-12] MEDS: METOPROLOL SUCCINATE XL 25 MG TABCR NG (09:48)
[2024-11-12] MEDS: DEXTROSE 5%-0.45% NS 1,000 ML 54 ML IV (09:54)
[2024-11-12] MEDS: THIAMINE 100 MG TABLET NG (11:19)
[2024-11-12 11:53] LABS: Sodium 150 mMol/L (136-145)
[2024-11-12] MEDS: FERRIC SOD GLUC INJ 125 MG in SODIUM CHLORIDE 0.9% 100 ML 110 MG IV (12:07)
--- NOTE | 2024-11-12 14:26 | PCS.ST ---
swallow eval complete. rec d2/ thin liquids via spoon sip only with 1:1 feeder. EMBEDDED SOFTWARE MANAGER will continue to follow.
[2024-11-12 14:48] LABS: Sodium 147 mMol/L (136-145)
--- NOTE | 2024-11-12 15:07 | ESPR_ITS ---
Documentation for date of: 11/12/24 Subjective Subjective Interval history: Patient examined at bedside. Able to follow commands, able to say full name. Able to open his eyes more fully but continued to be lethargic throughout evaluation. Exam Vital Signs Temp Pulse Resp BP Pulse Ox O2 Del Method O2 Flow Rate 98.8 F 99 18 128/72 100 Oxy Mask 4 11/12/24 08:00 11/12/24 14:18 11/12/24 14:18 11/12/24 09:48 11/12/24 14:18 11/12/24 08:00 11/12/24 14:18 FiO2 99 11/12/24 07:21 Narrative Exam General: No acute distress, cachectic, temporal wasting, diffuse muscle atrophy, lethargic HENT: Normocephalic, atraumatic, normal hearing, excess secretions requiring suction Neck: Supple, non-tender, no JVD Lungs: On oxy mask, symmetric chest rise Heart: Peripheral pulses intact bilaterally Abdomen: Soft, non-distended Neurologic: Mental status: Orientation: Lethargic, oriented to person Communication: Patient can follow simple instructions Language: Can say full name, answer yes or no questions Cranial nerves: CN III: Pupils equal, round, and reactive to light Motor: No abnormal movements or fasciculations Muscle strength: 3/5 in bilateral upper and lower extremities, though muscles easily fatigued (improved from previous exam) Sensory: unable to assess Reflexes: Biceps (C5-6): R 2+ L 2+ Triceps (C7-8): R 2+ L 2+ Patellae (L3-4): R 2+ L 2+ Achilles (S1-2):R 2+ L 2+ Objective Labs 11/14/24 05:25 11/14/24 05:25 Labs: Laboratory Results - last 24 hr 11/11/24 11/12/24 11/12/24 23:24 03:20 07:10 WBC 16.5 H RBC 2.55 L Hgb 7.9 L Hct 25.4 L MCV 100 MCH 31.0 MCHC 31.1 RDW Std Deviation 68.8 H Plt Count 301 Neut % (Auto) 80 Lymph % (Auto) 9 L [place] % (Auto) 7 Eos % (Auto) 3 Baso % (Auto) 0 Neut # (Auto) 13.1 H Lymph # (Auto) 1.4 [place] # (Auto) 1.2 H Eos # (Auto) 0.5 Baso # (Auto) 0.0 Immature Gran # (Auto) 0.17 H Absolute Nucleated RBC 0.08 H Immature Gran % 1 H Nucleated RBC % 1 H Sodium 151 H 152 H 151 H Potassium 3.7 Chloride 114 H Carbon Dioxide 29.5 Anion Gap 9 BUN 13 Creatinine 0.8 Estim Creat Clear Calc 80.3 eGFR > 60 BUN/Creatinine Ratio 16 Glucose 158 H Calculated Osmolality 304 H Calcium 7.9 L Corrected Calcium 8.5 Phosphorus 2.6 Magnesium 1.9 Total Bilirubin 0.3 AST 54 H ALT 62 H Alkaline Phosphatase 119 H Total Protein 6.0 Albumin 3.2 L Globulin 2.8 Albumin/Globulin Ratio 1.1 L 11/12/24 11/12/24 11:11 14:18 WBC RBC Hgb Hct MCV MCH MCHC RDW Std Deviation Plt Count Neut % (Auto) Lymph % (Auto) [place] % (Auto) Eos % (Auto) Baso % (Auto) Neut # (Auto) Lymph # (Auto) [place] # (Auto) Eos # (Auto) Baso # (Auto) Immature Gran # (Auto) Absolute Nucleated RBC Immature Gran % Nucleated RBC % Sodium 150 H 147 H Potassium Chloride Carbon Dioxide Anion Gap BUN Creatinine Estim Creat Clear Calc eGFR BUN/Creatinine Ratio Glucose Calculated Osmolality Calcium Corrected Calcium Phosphorus Magnesium Total Bilirubin AST ALT Alkaline Phosphatase Total Protein Albumin Globulin Albumin/Globulin Ratio ABG Interpretation ABG results: 11/03/24 11/03/24 11/03/24 11:20 14:11 17:06 ABG pH 7.35 7.34 L 7.20 L D ABG pCO2 21 L 20 L 45 D ABG pO2 193 H 82 L D 78 L ABG HCO3 12 L 11 L 16 L ABG O2 Saturation 100 H 96 91 ABG Base Excess -12 L -14 L -12 L VBG pH VBG pCO2 VBG pO2 VBG Base Excess 11/04/24 11/04/24 11/04/24 00:00 04:29 05:15 ABG pH 7.50 H D ABG pCO2 30 L D ABG pO2 109 H D ABG HCO3 23 ABG O2 Saturation 100 H ABG Base Excess 1 VBG pH 7.43 7.52 VBG pCO2 35 L 27 L VBG pO2 43 57 VBG Base Excess -1 0 11/05/24 11/06/24 11/06/24 04:49 03:40 21:45 ABG pH 7.48 H 7.41 ABG pCO2 35 43 ABG pO2 74 L D 108 D ABG HCO3 26 27 H ABG O2 Saturation 96 99 H ABG Base Excess 3 2 VBG pH 7.49 VBG pCO2 39 D VBG pO2 39 VBG Base Excess 6 H 11/07/24 11/08/24 11/09/24 05:59 04:19 04:11 ABG pH 7.49 H 7.48 H 7.44 ABG pCO2 39 38 40 ABG pO2 71 L D 77 L 63 L ABG HCO3 29 H 29 H 27 H ABG O2 Saturation 96 97 93 ABG Base Excess 6 H 5 H 3 VBG pH VBG pCO2 VBG pO2 VBG Base Excess 11/10/24 07:02 ABG pH 7.45 ABG pCO2 42 ABG pO2 83 D ABG HCO3 29 H ABG O2 Saturation 98 ABG Base Excess 5 H VBG pH VBG pCO2 VBG pO2 VBG Base Excess Quality Measures Quality Measures sepsis Current suspected stage: ruled out Possible source: pulmonary Blood cultures ordered: completed in ED Antibiotic ordered: No Assessment & Plan Assessment Current Active Medications: Generic Name Dose Route Start Last Admin Trade Name Freq PRN Reason Stop Dose Admin Acetaminophen 325 mg 11/05/24 09:48 Acetaminophen 325 Mg Tablet PO 12/03/24 15:31 Q6H PRN Fever >101.5 Acetylcysteine 3 ml 11/11/24 11:00 11/12/24 14:17 Acetylcysteine Rt Anastacia 10% 4 Ml Nebu INH 12/11/24 10:59 3 ml Q4HRRT BETO Administration Albuterol/Ipratropium 3 ml 11/11/24 11:00 11/12/24 14:17 Albuterol/Ipratropium (Duoneb) Rt Anastacia 3 Ml Nebu INH 12/11/24 10:59 3 ml Q4HRRT BETO Administration Aspirin 81 mg 11/11/24 08:25 11/12/24 09:47 Aspirin 81 Mg Chew NG 12/04/24 08:59 81 mg QDAY BETO Administration Atorvastatin Calcium 40 mg 11/11/24 08:25 11/11/24 21:22 Atorvastatin Calcium 20 Mg Tablet NG 12/03/24 20:59 40 mg HS BETO Administration Dextrose 25 ml 11/11/24 16:45 Dextrose 50%-Water Inj 50 Ml Syringe IV 12/11/24 16:44 Q15MIN PRN BG 50-70 responsive npo pt Dextrose 50 ml 11/11/24 16:45 Dextrose 50%-Water Inj 50 Ml Syringe IV 12/11/24 16:44 Q15MIN PRN BG <50 OR BG <70 & pt unresponsive Folic Acid 1 mg 11/11/24 09:00 11/12/24 09:47 Folic Acid 1 Mg Tablet NG 12/11/24 08:59 1 mg QDAY BETO Administration Glucagon 1 mg 11/11/24 16:45 Glucagon Inj 1 Mg Vial IM Q15MIN PRN BG <70, and no IV access Ferric Sodium Gluconate 125 mg 110 mls @ 110 mls/hr 11/08/24 17:15 11/12/24 12:07 / Sodium Chloride IV 12/08/24 17:14 110 mls/hr QDAY BETO Administration Dextrose/Sodium Chloride 1,000 mls @ 54 mls/hr 11/12/24 07:50 11/12/24 09:54 D5-1/2ns IV 12/12/24 07:49 54 mls/hr .[id number] BETO Administration Insulin Human Lispro 0 unit 11/12/24 00:00 11/12/24 12:30 Insulin Lispro (Admelog) 1 Unit/0.01 Ml Unit SC 12/12/24 00:00 1 unit Q6HR BETO Administration Protocol Lactulose 20 gm 11/07/24 14:00 11/12/24 05:58 Lactulose Syrup 20 Gm/30 Ml Udc NG 12/07/24 13:59 20 gm TID BETO Administration Protocol Metoprolol Succinate 25 mg 11/11/24 09:00 11/12/24 09:48 Metoprolol Succinate Xl 25 Mg Tabcr NG 12/10/24 10:59 25 mg QDAY BETO Administration Midodrine 5 mg 11/11/24 08:26 11/12/24 05:58 Midodrine 5 Mg Tablet NG 12/07/24 13:59 5 mg TID BETO Administration Multivitamins/Minerals 15 ml 11/11/24 09:00 11/12/24 09:47 Multivitamin 15 Ml Udc NG 12/11/24 08:59 15 ml QDAY BETO Administration Ondansetron HCl 4 mg 11/03/24 15:32 Ondansetron Inj 2 Mg/Ml Inj 2 Ml IVP 12/03/24 15:31 Q6H PRN NAUSEA OR VOMITING Protocol Pantoprazole Sodium 40 mg 11/05/24 21:00 11/12/24 09:55 Pantoprazole Inj 40 Mg Vial IVP 12/05/24 20:59 40 mg BID BETO Administration Rifaximin 550 mg 11/08/24 13:45 11/12/24 09:47 Rifaximin 550 Mg Tablet PO 11/15/24 13:44 550 mg BID BETO Administration Sennosides 1 tab 11/04/24 09:00 11/12/24 09:47 Senna Tablet PO 12/04/24 08:59 1 tab QDAY BETO Administration Protocol Sodium Chloride 3 ml 11/03/24 10:58 Sodium Chloride Rt Anastacia 0.9% 3 Ml Nebu INH 12/03/24 10:57 PRN PRN SOLN Thiamine HCl 100 mg 11/11/24 09:00 11/12/24 11:19 Thiamine 100 Mg Tablet NG 12/11/24 08:59 100 mg QDAY BETO Administration Plan # Generalized weakness, improving # Acute encephalopathy, improving Initial presentation in ED: generalized weakness x2 weeks, AMS, increased work of breathing BMI of 18.3 kg/m, cachectic, diffuse muscle atrophy Patient unable to move upper extremities bilaterally when off sedation on 11/08, now on 11/10 post-extubation, left upper extremity 2/5, right upper extremity 4/5 Lactic acid: 16 --> 13.1 --> 3.5 --> 2.9 UA negative, positive for hyaline casts. Salicylate level less than 3, UDS negative, EtOH less than 3, cocci IgM and IgG negative, hepatitis A/B/C nonreactive. B12 WNL 699, folate WNL 13.89, TSH 1.66 WNL, free T40.51 Low. Pro-Jonny 1.93 --> 4.24. CK WNL 41 TTE showed moderate left ventricle systolic dysfunction, severe mitral regurgitation, some LVOT obstruction. C/F Takotsubo cardiomyopathy. CT head without contrast 11/07: Negative for acute hemorrhage, midline shift, mass effect. Diffuse cortical atrophy. MRI brain without contrast 11/09: Punctate foci site in frontal parietal b/l white matter on FLAIR, non-specific, chronic, NOT suggestive of demyelinating diseae Acute encephalopathy DDX: infectious (PNA), hypoxia, alcohol withdrawal, hepatic encephalopathy, shock (septic/distributive vs hypovolemic), metabolic (lactic acidosis) Weakness DDX: most likely 2/2 alcohol-related polyneuropathy, inflammatory myopathy, deconditioning, nutritional/vitamin deficiency Plan: - Pending EEG read - No need for further workup as patient presentation improving - Continue thiamine, folate - Pending AChR Ab (myasthenia gravis) - If weakness persist even after physical therapy, we will consider doing EMG nerve conduction study of both upper and lower extremities as an outpatient # Alcohol withdrawal, resolved Hx: EtOH use disorder, drinks at least 2 large bottles of hard liquor along with beer on a daily basis Patient given phenobarbital, Versed, chlordiazepoxide. Required high levels of sedation for agitation while intubated Plan: - Management per primary team #Abnormal EKG #Takotsubo syndrome vs LAD, complicated by #Sigmoid interventricular septum, possibly leading to #Moderate to severe eccentric MR, leading to #Moderate to severe PAH #HFrEF with apical akinesis #NSTEMI type II most likely type I Troponin 4.326 --> 4.32 --> 3.786 EKG was significant for sinus tachycardia with deep symmetric T wave inversion in lateral leads V4 to V6, and inverted T waves in lead I and aVL. TTE 11/03/2024 LVEF 35 to 40%, decreased apical motion, moderate left ventricle systolic dysfunction, severe mitral regurgitation, some LVOT obstruction. BNP high 2306 Plan: -Management per primary, cardiology - metoprolol succinate XL 25 daily, ASA 81 mg daily, Atorvastatin 40 mg daily # Distributive shock, secondary to sepsis, septic shock secondary to aspiration pneumonia, resolved Plan: - Management per primary team #Acute hypoxic respiratory failure secondary to pneumonia, respiratory failure in setting of shock #Status post extubation 11/10/2024 #Aspiration pneumonia DDX: aspiration pneumonia in the presence of dysphagia due to history of esophageal cancer Flu, COVID negative, cocci IgM negative, MRSA nasal screen negative, Blood cultures negative CTA: significant right-sided pneumonia and left base pneumonia Plan: - Management per primary #Decompensated cirrhosis #Alcohol-related liver disease #Transaminitis #Suspected hepatic encephalopathy #GI bleed workup #Melena Hep A/B/C non-reactive 11/04 Cocci negative 11/04 CTA abdomen showed evidence of cirrhosis Liver ultrasound shows ascites EGD 11/07/2024 showed grade 1 esophageal varices, 2+ esophageal varices not large enough for band ligation MELD score of 7, 1.9% estimated 3-month mortality Child-Pug Score: 8 Plan: - Management per primary - folate, thiamine, lactulose, octreotide drip (11/07 - 11/12), Protonix, daily CBC for hemoglobin monitoring #Hx esophageal cancer, in remission s/p esophagectomy # Moderate oropharyngeal dysphagia Follow-up: - Management per primary #Large right inguinal hernia #Dilated bowel loops Hernia is reducible, low suspicion of incarceration CTA abdomen pelvis shows large right inguinal hernia noted on imaging as well, no radiological signs of incarceration Plan: - Management per primary team - General Surgery consulted, no surgical intervention needed in this admission, can follow up o/p #Hypernatremia Plan: - Management per primary #Leukocytosis Initial WBC: 38.2 Plan: - Management per primary - Daily CBC #Normocytic normochromic anemia versus iron deficiency anemia Initial hgb: 8.8, stable DDX: Nutritional deficiency, in the setting of sepsis, GI bleed, low suspicion of hemolysis Plan: - Management per primary, cardiology - IV iron infusion, vitamin B12 and folic acid Discussed with Dr. Yifan Vargas, PGY1 Attending Provider Attestation/Addendum I personally have seen and examined patient at the bedside and agree with resident's findings, assessment and plan of care. His mental status is slowly improving. Continue have weakness in both upper and lower extremities proximal more than distal. Follow-up with labs and EEG.
--- NOTE | 2024-11-12 17:28 | PC.PT ---
Patient is safe to transfer to a bedside commode to use the toilet with a FWW and 1 staff assist. RN made aware.
--- NOTE | 2024-11-12 18:14 | ESPR_ITS ---
Documentation for date of: 11/12/24 Subjective Subjective Interval history: Hemoglobin hematocrit 7.9 and 25.4 with a platelet count of 301,000 Exam Vital Signs Temp Pulse Resp BP Pulse Ox O2 Del Method O2 Flow Rate 98.2 F 104 H 18 128/72 100 Nasal Cannula 3 11/12/24 15:38 11/12/24 15:38 11/12/24 15:38 11/12/24 15:38 11/12/24 15:38 11/12/24 15:38 11/12/24 15:38 FiO2 99 11/12/24 07:21 Objective Labs 11/12/24 03:20 11/12/24 14:18 Labs: Laboratory Results - last 24 hr 11/11/24 11/12/24 11/12/24 23:24 03:20 07:10 WBC 16.5 H RBC 2.55 L Hgb 7.9 L Hct 25.4 L MCV 100 MCH 31.0 MCHC 31.1 RDW Std Deviation 68.8 H Plt Count 301 Neut % (Auto) 80 Lymph % (Auto) 9 L [place] % (Auto) 7 Eos % (Auto) 3 Baso % (Auto) 0 Neut # (Auto) 13.1 H Lymph # (Auto) 1.4 [place] # (Auto) 1.2 H Eos # (Auto) 0.5 Baso # (Auto) 0.0 Immature Gran # (Auto) 0.17 H Absolute Nucleated RBC 0.08 H Immature Gran % 1 H Nucleated RBC % 1 H Sodium 151 H 152 H 151 H Potassium 3.7 Chloride 114 H Carbon Dioxide 29.5 Anion Gap 9 BUN 13 Creatinine 0.8 Estim Creat Clear Calc 80.3 eGFR > 60 BUN/Creatinine Ratio 16 Glucose 158 H Calculated Osmolality 304 H Calcium 7.9 L Corrected Calcium 8.5 Phosphorus 2.6 Magnesium 1.9 Total Bilirubin 0.3 AST 54 H ALT 62 H Alkaline Phosphatase 119 H Total Protein 6.0 Albumin 3.2 L Globulin 2.8 Albumin/Globulin Ratio 1.1 L 11/12/24 11/12/24 11:11 14:18 WBC RBC Hgb Hct MCV MCH MCHC RDW Std Deviation Plt Count Neut % (Auto) Lymph % (Auto) [place] % (Auto) Eos % (Auto) Baso % (Auto) Neut # (Auto) Lymph # (Auto) [place] # (Auto) Eos # (Auto) Baso # (Auto) Immature Gran # (Auto) Absolute Nucleated RBC Immature Gran % Nucleated RBC % Sodium 150 H 147 H Potassium Chloride Carbon Dioxide Anion Gap BUN Creatinine Estim Creat Clear Calc eGFR BUN/Creatinine Ratio Glucose Calculated Osmolality Calcium Corrected Calcium Phosphorus Magnesium Total Bilirubin AST ALT Alkaline Phosphatase Total Protein Albumin Globulin Albumin/Globulin Ratio Impressions Impression: 1-2+ esophageal varices Hypertensive portal gastropathy Continue to monitor CBC ABG Interpretation ABG results: 11/03/24 11/03/24 11/03/24 11:20 14:11 17:06 ABG pH 7.35 7.34 L 7.20 L D ABG pCO2 21 L 20 L 45 D ABG pO2 193 H 82 L D 78 L ABG HCO3 12 L 11 L 16 L ABG O2 Saturation 100 H 96 91 ABG Base Excess -12 L -14 L -12 L VBG pH VBG pCO2 VBG pO2 VBG Base Excess 11/04/24 11/04/24 11/04/24 00:00 04:29 05:15 ABG pH 7.50 H D ABG pCO2 30 L D ABG pO2 109 H D ABG HCO3 23 ABG O2 Saturation 100 H ABG Base Excess 1 VBG pH 7.43 7.52 VBG pCO2 35 L 27 L VBG pO2 43 57 VBG Base Excess -1 0 11/05/24 11/06/24 11/06/24 04:49 03:40 21:45 ABG pH 7.48 H 7.41 ABG pCO2 35 43 ABG pO2 74 L D 108 D ABG HCO3 26 27 H ABG O2 Saturation 96 99 H ABG Base Excess 3 2 VBG pH 7.49 VBG pCO2 39 D VBG pO2 39 VBG Base Excess 6 H 11/07/24 11/08/24 11/09/24 05:59 04:19 04:11 ABG pH 7.49 H 7.48 H 7.44 ABG pCO2 39 38 40 ABG pO2 71 L D 77 L 63 L ABG HCO3 29 H 29 H 27 H ABG O2 Saturation 96 97 93 ABG Base Excess 6 H 5 H 3 VBG pH VBG pCO2 VBG pO2 VBG Base Excess 11/10/24 07:02 ABG pH 7.45 ABG pCO2 42 ABG pO2 83 D ABG HCO3 29 H ABG O2 Saturation 98 ABG Base Excess 5 H VBG pH VBG pCO2 VBG pO2 VBG Base Excess Assessment & Plan A&P Narrative 49 years old male with acute respiratory failure bilateral pneumonia acute coronary syndrome mechanically ventilated with previous history of Esophageal carcinoma status posttreatment and supposedly in remission Difficulty placing the NGT only OGT in Plan Will attempt to place a 14 [place] NGT either via nasogastric approach or oral approach Will follow the patient # Transaminitis most likely due to hypoxic hepatitis Thank you very much for the opportunity to participate in the care of this patient Time Spent With Patient Time: Total time spent is greater than 50% in coordination of care (as documented) at patient's floor/unit and/or counseling patient:
--- NOTE | 2024-11-12 18:31 | PD.RESPRO ---
Documentation for date of: 11/12/24 Subjective Subjective Interval history: The patient was seen and examined at the bedside this morning. -Patient has been extubated and on oxygen via Ventimask. Tachypnea and cough has significantly improved that was causing reduced ability to clear his secretions. -On examination pulm crackles has been improving, and his urine output was around 800cc after Lasix IV once 2 days ago. - Na - 156 and lasix held. now on D5 1/2 NS - Stopped pressor support. Avoid inotropic's pressor support. -Continue with aspirin 81 Mg daily, atorvastatin 40 Mg daily at night, ferric gluconate 125 Mg IV daily, folic acid 1 mg daily, metoprolol succinate 25 Mg daily, midodrine 5 Mg 3 times daily, and thiamine 100 Mg daily. -Ordered limited TTE for reevaluation of LVEF, LVOT obstruction and ABBI - Will plan left and right heart cardiac catheterization on coming Saturday or Saturday prior to discharge when hemodynamically stable.. Exam Vital Signs Temp Pulse Resp BP Pulse Ox O2 Del Method O2 Flow Rate 98.2 F 104 H 18 128/72 100 Nasal Cannula 3 11/12/24 15:38 11/12/24 15:38 11/12/24 15:38 11/12/24 15:38 11/12/24 15:38 11/12/24 15:38 11/12/24 15:38 FiO2 99 11/12/24 07:21 Narrative Exam General: No acute distress, on oxy mask, responding well to commands, interacting with soft voice HEENT: Moist mucous membranes, oropharynx clear Neck: Supple, No masses, No JVD CVS: S1, S2 regular rate and rhythm, No murmurs, rubs or gallops Lungs: Mild wheezing throughout the lung field, improving rhonchi appreciated throughout the lung field, mild bibasilar crackles appreciated Abd: Soft, NT/ND, +BS, hepatomegaly appreciated Ext: No edema, warm and well perfused Skin: No rash Psych: Unable to obtain Objective Labs 11/12/24 03:20 11/12/24 22:20 Labs: Laboratory Results - last 24 hr 11/11/24 11/12/24 11/12/24 23:24 03:20 07:10 WBC 16.5 H RBC 2.55 L Hgb 7.9 L Hct 25.4 L MCV 100 MCH 31.0 MCHC 31.1 RDW Std Deviation 68.8 H Plt Count 301 Neut % (Auto) 80 Lymph % (Auto) 9 L Angelina % (Auto) 7 Eos % (Auto) 3 Baso % (Auto) 0 Neut # (Auto) 13.1 H Lymph # (Auto) 1.4 Angelina # (Auto) 1.2 H Eos # (Auto) 0.5 Baso # (Auto) 0.0 Immature Gran # (Auto) 0.17 H Absolute Nucleated RBC 0.08 H Immature Gran % 1 H Nucleated RBC % 1 H Sodium 151 H 152 H 151 H Potassium 3.7 Chloride 114 H Carbon Dioxide 29.5 Anion Gap 9 BUN 13 Creatinine 0.8 Estim Creat Clear Calc 80.3 eGFR > 60 BUN/Creatinine Ratio 16 Glucose 158 H Calculated Osmolality 304 H Calcium 7.9 L Corrected Calcium 8.5 Phosphorus 2.6 Magnesium 1.9 Total Bilirubin 0.3 AST 54 H ALT 62 H Alkaline Phosphatase 119 H Total Protein 6.0 Albumin 3.2 L Globulin 2.8 Albumin/Globulin Ratio 1.1 L 11/12/24 11/12/24 11:11 14:18 WBC RBC Hgb Hct MCV MCH MCHC RDW Std Deviation Plt Count Neut % (Auto) Lymph % (Auto) Angelina % (Auto) Eos % (Auto) Baso % (Auto) Neut # (Auto) Lymph # (Auto) Angelina # (Auto) Eos # (Auto) Baso # (Auto) Immature Gran # (Auto) Absolute Nucleated RBC Immature Gran % Nucleated RBC % Sodium 150 H 147 H Potassium Chloride Carbon Dioxide Anion Gap BUN Creatinine Estim Creat Clear Calc eGFR BUN/Creatinine Ratio Glucose Calculated Osmolality Calcium Corrected Calcium Phosphorus Magnesium Total Bilirubin AST ALT Alkaline Phosphatase Total Protein Albumin Globulin Albumin/Globulin Ratio ABG Interpretation ABG results: 11/03/24 11/03/24 11/03/24 11:20 14:11 17:06 ABG pH 7.35 7.34 L 7.20 L D ABG pCO2 21 L 20 L 45 D ABG pO2 193 H 82 L D 78 L ABG HCO3 12 L 11 L 16 L ABG O2 Saturation 100 H 96 91 ABG Base Excess -12 L -14 L -12 L VBG pH VBG pCO2 VBG pO2 VBG Base Excess 11/04/24 11/04/24 11/04/24 00:00 04:29 05:15 ABG pH 7.50 H D ABG pCO2 30 L D ABG pO2 109 H D ABG HCO3 23 ABG O2 Saturation 100 H ABG Base Excess 1 VBG pH 7.43 7.52 VBG pCO2 35 L 27 L VBG pO2 43 57 VBG Base Excess -1 0 11/05/24 11/06/24 11/06/24 04:49 03:40 21:45 ABG pH 7.48 H 7.41 ABG pCO2 35 43 ABG pO2 74 L D 108 D ABG HCO3 26 27 H ABG O2 Saturation 96 99 H ABG Base Excess 3 2 VBG pH 7.49 VBG pCO2 39 D VBG pO2 39 VBG Base Excess 6 H 11/07/24 11/08/24 11/09/24 05:59 04:19 04:11 ABG pH 7.49 H 7.48 H 7.44 ABG pCO2 39 38 40 ABG pO2 71 L D 77 L 63 L ABG HCO3 29 H 29 H 27 H ABG O2 Saturation 96 97 93 ABG Base Excess 6 H 5 H 3 VBG pH VBG pCO2 VBG pO2 VBG Base Excess 11/10/24 07:02 ABG pH 7.45 ABG pCO2 42 ABG pO2 83 D ABG HCO3 29 H ABG O2 Saturation 98 ABG Base Excess 5 H VBG pH VBG pCO2 VBG pO2 VBG Base Excess Quality Measures Quality Measures sepsis Current suspected stage: sepsis Possible source: pulmonary Blood cultures ordered: completed in ED Antibiotic ordered: Yes Assessment & Plan Assessment Current Active Medications: Generic Name Dose Route Start Last Admin Trade Name Freq PRN Reason Stop Dose Admin Acetaminophen 325 mg 11/05/24 09:48 Acetaminophen 325 Mg Tablet PO 12/03/24 15:31 Q6H PRN Fever >101.5 Acetylcysteine 3 ml 11/11/24 11:00 11/12/24 14:17 Acetylcysteine Rt Anastacia 10% 4 Ml Nebu INH 12/11/24 10:59 3 ml Q4HRRT BETO Administration Albuterol/Ipratropium 3 ml 11/11/24 11:00 11/12/24 14:17 Albuterol/Ipratropium (Duoneb) Rt Anastacia 3 Ml Nebu INH 12/11/24 10:59 3 ml Q4HRRT BETO Administration Aspirin 81 mg 11/11/24 08:25 11/12/24 09:47 Aspirin 81 Mg Chew NG 12/04/24 08:59 81 mg QDAY BETO Administration Atorvastatin Calcium 40 mg 11/11/24 08:25 11/11/24 21:22 Atorvastatin Calcium 20 Mg Tablet NG 12/03/24 20:59 40 mg HS BETO Administration Dextrose 25 ml 11/11/24 16:45 Dextrose 50%-Water Inj 50 Ml Syringe IV 12/11/24 16:44 Q15MIN PRN BG 50-70 responsive npo pt Dextrose 50 ml 11/11/24 16:45 Dextrose 50%-Water Inj 50 Ml Syringe IV 12/11/24 16:44 Q15MIN PRN BG <50 OR BG <70 & pt unresponsive Folic Acid 1 mg 11/11/24 09:00 11/12/24 09:47 Folic Acid 1 Mg Tablet NG 12/11/24 08:59 1 mg QDAY BETO Administration Glucagon 1 mg 11/11/24 16:45 Glucagon Inj 1 Mg Vial IM Q15MIN PRN BG <70, and no IV access Ferric Sodium Gluconate 125 mg 110 mls @ 110 mls/hr 11/08/24 17:15 11/12/24 12:07 / Sodium Chloride IV 12/08/24 17:14 110 mls/hr QDAY BETO Administration Dextrose/Sodium Chloride 1,000 mls @ 54 mls/hr 11/12/24 07:50 11/12/24 09:54 D5-1/2ns IV 12/12/24 07:49 54 mls/hr .[id number] BETO Administration Insulin Human Lispro 0 unit 11/12/24 17:15 Insulin Lispro (Admelog) 1 Unit/0.01 Ml Unit SC 12/12/24 17:14 ACHS BETO Protocol Lactulose 20 gm 11/07/24 14:00 11/12/24 15:24 Lactulose Syrup 20 Gm/30 Ml Udc NG 12/07/24 13:59 20 gm TID BETO Administration Protocol Metoprolol Succinate 25 mg 11/11/24 09:00 11/12/24 09:48 Metoprolol Succinate Xl 25 Mg Tabcr NG 12/10/24 10:59 25 mg QDAY BETO Administration Midodrine 5 mg 11/11/24 08:26 11/12/24 15:31 Midodrine 5 Mg Tablet NG 12/07/24 13:59 5 mg TID BETO Administration Multivitamins/Minerals 15 ml 11/11/24 09:00 11/12/24 09:47 Multivitamin 15 Ml Udc NG 12/11/24 08:59 15 ml QDAY BETO Administration Ondansetron HCl 4 mg 11/03/24 15:32 Ondansetron Inj 2 Mg/Ml Inj 2 Ml IVP 12/03/24 15:31 Q6H PRN NAUSEA OR VOMITING Protocol Pantoprazole Sodium 40 mg 11/05/24 21:00 11/12/24 09:55 Pantoprazole Inj 40 Mg Vial IVP 12/05/24 20:59 40 mg BID BETO Administration Rifaximin 550 mg 11/08/24 13:45 11/12/24 09:47 Rifaximin 550 Mg Tablet PO 11/15/24 13:44 550 mg BID BETO Administration Sennosides 1 tab 11/04/24 09:00 11/12/24 09:47 Senna Tablet PO 12/04/24 08:59 1 tab QDAY BETO Administration Protocol Sodium Chloride 3 ml 11/03/24 10:58 Sodium Chloride Rt Anastacia 0.9% 3 Ml Nebu INH 12/03/24 10:57 PRN PRN SOLN Thiamine HCl 100 mg 11/11/24 09:00 11/12/24 11:19 Thiamine 100 Mg Tablet NG 12/11/24 08:59 100 mg QDAY BETO Administration Plan The patient is a 49-year-old male with significant past medical history of esophageal cancer currently on remission, and hypertension presented to ED with chief complaint of acute SOB and generalized weakness is currently being treated for septic shock, Takotsubo syndrome complicated by sigmoid interventricular septum further leading to tachycardia and NSTEMI type II. #Acute encephalopathy, improved Likely multifactorial 2/2 #Alcohold withdrawal, and #Demylinating disease pattern 2/2 #Alcohol abuse disorder Patient presented with generalized weakness, later required intubation in the setting of aspiration pneumonia and septic shock. However, the patient has not been tolerating spontaneous breathing trials. BL UE weakness was there so MRI brain was done that revealed punctate foci increased signal in the frontal parietal white matter, demyelinating disease pattern. -Management deferred to primary hospitalist team #Abnormal EKG, likely 2/2 #Takotsubo syndrome vs LAD, complicated by #Sigmoid interventricular septum, possibly leading to #Moderate to severe eccentric MR, leading to #Moderate to severe PAH #HFrEF with apical akinesis EKG was significant for sinus tachycardia with deep symmetric T wave inversion in lateral leads V4 to V6, and inverted T waves in lead I and aVL. TTE on 11/03/2024 revealed: Normal LV size and moderate LV systolic dysfunction with an EF of 35 to 40%. Apical akinesis with hypokinesis of the mid to apical anterior, anterolateral and apical septal segments indicating possible Takotsubo syndrome versus LAD involvement. RV Normal in size and function. 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 Severe LA dilatation. Trace AI Moderate TR with mild RA dilatation. No Pericardial Effusion. IVC not well-visualized. Repeat limited TTE on 11/04/2024 revealed: Normal LV size and mildly decreased LV systolic function with an EF of around 40 to 45%. EF improved from yesterday. Hypokinesis of the mid to apical anterior and anterolateral and apical segments appear improved. Apical akinesis still noted. Sigmoid septum noted with LVOT obstruction leading to moderate to severe eccentric MR directed anteriorly. Gradient measurement not accurate due to contamination with MR jet. Normal RV size and function. No pericardial effusion -As the patient has sigmoid interventricular septum, and recent stressor likely leading to Takotsubo syndrome, leading to tachycardia of the base of left ventricle, which is further pulling in mitral valve leading to MR resulting with moderate to severe PAH. -Volume status is critical, to maintain euvolemia, as hypovolemia will cause decrease venous return, resulting as compensatory tachycardia of upper left ventricle leading to further MR, with increased pulmonary arterial pressure and shunt reversal. On the other hand, if there is hypervolemia leading to increased venous return, will complicate MR and increased pulmonary artery pressure. -Diuretics and IV fluids as needed depending on the patient's fluid status. -Continue on metoprolol XL 25 daily -CXR done on 11/10/2024 revealed mild improvement in pulmonary vascular congestions compared to CXR done on 11/09/2024. -Patient has been extubated and on oxygen via Ventimask. Tachypnea and cough has significantly improved that was causing reduced ability to clear his secretions. -On examination pulm crackles has been improving, and his urine output was around 800cc after Lasix IV once 2 days ago. - Na - 156 and lasix held. now on D5 1/2 NS - Stopped pressor support. Avoid inotropic's pressor support. -Continue with aspirin 81 Mg daily, atorvastatin 40 Mg daily at night, ferric gluconate 125 Mg IV daily, folic acid 1 mg daily, metoprolol succinate 25 Mg daily, midodrine 5 Mg 3 times daily, and thiamine 100 Mg daily. -Ordered limited TTE for reevaluation of LVEF, LVOT obstruction and ABBI - Will plan left and right heart cardiac catheterization on coming Saturday or Saturday prior to discharge when hemodynamically stable.. #Anemia Likely multifactorial in the setting of nutritional deficiency along with iron, vitamin B12 and folic acid deficiency MCV is elevated at 99. Given his severe alcohol abuse patient is probably B12 as well as folate deficient. Patient would benefit from replacement of iron and B12 and folate which will eventually help anemia long-term and improve his tachycardia which would help with his LVOT obstruction and ABBI along with improvement of sepsis and alcohol withdrawal syndrome - Recommended IV iron infusion, vitamin B12 and folic acid #Cirrhosis #Dilated esophageal varices #Hypertensive portal gastropathy 2/2 alcohol abuse disorder -GI Dr. Louis recommended octreotide drip for 5 days. #Acute hypoxic respiratory failure, improving #Septic shock, improved #Aspiration pneumonia, improving #Severe lactic acidosis, imporved Currently, the patient is intubated but saturating on 21% FiO2. Initially, the patient presented with blood pressure of 81/51, pulse 127, RR 40, and white count 33.8 meeting 3/4 SIRS criteria, chest x-ray significant for right sided middle and lower lobe pneumonia, CT chest abdomen and pelvis revealing right middle and lower lobe pneumonia, and left lower lobe pneumonia, and lactic acid level of 16, with endorgan failure as acute hypoxic respiratory failure requiring intubation. Patient received 2.5 L of bolus IV fluid Unable to wean off of mechanical ventilation and was following commands, but BL UE weakness was there so MRI brain was done that revealed: Punctate foci increased signal in the frontal parietal white matter, demyelinating disease pattern - Continue with aggressive IV antibiotics - Blood and urine culture sent, negative so far. - IgM for coccidiomycosis, negative #NSTEMI type II, improved Likely multifactorial secondary to septic shock, Takotsubo syndrome, sigmoid interventricular septum leading to MR. No significant risk factor for STEMI, except for hypertension, as patient denies smoking or illicit drug use, and lipid panel was significant for LDL 39 and HDL 53. EKG unremarkable for STEMI - Heparin drip stopped - Left and right heart cardiac catheterization on coming Saturday or Saturday - Aspirin 81 Mg daily - Atorvastatin 40 Mg daily at night Thank you for cardiology consultation. We really appreciate for the opportunity to participate in this patient care. Cardiology team will continue to follow-up on this patient. The patient's management plan was discussed with my attending physician MD Ventura Montes MD, PGY3 Attending Provider Attestation/Addendum I have personally seen and examined the patient separately on the above date of service and discussed the plan of care with the resident. I reviewed the resident Dr. Ventura Myers consultation progress note and agree with the resident findings and plan in the note above and have also edited the documentation to reflect my findings and plan. Colin Brandt M.D. Interventional Cardiology
[2024-11-12 18:49] LABS: Sodium 147 mMol/L (136-145)
[2024-11-12] MEDS: ATORVASTATIN CALCIUM 20 MG TABLET 40 MG NG (20:59)
--- NOTE | 2024-11-12 21:33 | ECHO_ITS ---
Transthoracic Echo Report Ht (in): 61 Wt (lb): 113 Exam Location: Echo Lab Status: Inpatient Physical Therapy Attendant: Angelika Zapata Indications: Procedure Performed: BP: 111 / 66 HR: 94 Technical Quality: Technically difficult study MEASUREMENTS (Male / Female) Normal Values 2D ECHO LV Diastolic Diameter PLAX 3.9 cm 4.2 - 5.9 / 3.9 - 5.3 cm LV Systolic Diameter PLAX 2.8 cm IVS Diastolic Thickness 1.2 cm 0.6 - 1.0 / 0.6 - 0.9 cm LVPW Diastolic Thickness 1.2 cm 0.6 - 1.0 / 0.6 - 0.9 cm LV Relative Wall Thickness 0.6 LVOT Diameter 1.3 cm Aortic Root Diameter 2.9 cm LA Volume Index 52.9 cm?/m? 16 - 28 cm?/m? M-MODE Aortic Root Diameter MM 2.1 cm LA Systolic Diameter MM 3.5 cm LA Ao Ratio MM 1.7 AV Cusp Separation MM 1.9 cm DOPPLER AV Peak Velocity 336.0 cm/s AV Peak Gradient 45.2 mmHg AV Mean Gradient 19.0 mmHg AV Velocity Time Integral 56.8 cm LVOT Peak Velocity 216.5 cm/s LVOT Peak Gradient 18.7 mmHg LVOT Velocity Time Integral 31.1 cm LVOT Cardiac Index 2607.4 cm?/min?m? AV Area Cont Eq vti 0.7 cm? AV Area Cont Eq pk 0.9 cm? MV Area PHT 7.3 cm? MR Peak Velocity 635.3 cm/s MR Peak Gradient 161.5 mmHg Mitral E Point Velocity 101.0 cm/s Mitral A Point Velocity 103.0 cm/s Mitral E to A Ratio 1.0 LV E' Lateral Velocity 7.6 cm/s Mitral E to LV E' Lateral Ratio 13.3 LV E' Septal Velocity 4.8 cm/s Mitral E to LV E' Septal Ratio 21.1 TR Peak Velocity 284.0 cm/s TR Peak Gradient 32.3 mmHg PV Peak Velocity 183.0 cm/s PV Peak Gradient 13.4 mmHg FINDINGS Left Ventricle Normal left ventricular size and systolic function with no obvious regional wall motion abnormalities. Mild LVH. Normal left ventricular diastolic filling pattern for age. The ejection fraction is visually estimated at 60- 65 %. Sigmoid septum noted. Right Ventricle The right ventricle is normal in size and systolic function. Left Atrium Moderately increased left atrial volume 52.9 mL/m?. Right Atrium The right atrium is normal by two-dimensional imaging, color flow and Doppler imaging with no structural abnormalities, no thrombus formation present. Atrial Septum The interatrial septum appears normal with no evidence of a shunt. Aorta The aortic root and proximal ascending aorta are normal to two-dimensional imaging. Mitral Valve [id number] mitral regurgitation. Aortic Valve Mild aortic valve stenosis, mean gradient 19 mmHg, KEMI 0.73 cm?. Tricuspid Valve There is mild tricuspid valve regurgitation. Pulmonic Valve The pulmonic valve is not well visualized. There is no significant pulmonic valve regurgitation. Vessels Inferior vena cava not well visualized. Pericardium The pericardium is normal by two-dimensional imaging. There is no significant pericardial effusion. CONCLUSIONS Indication: CHF, Takotsubo syndrome Normal LV size and function. Mild LVH. Estimated EF at 60-65 %. Sigmoid septum noted. Grade 1 diastolic dysfunction. Normal RV size and function. RVSP mild to moderately elevated around 35 to 40 mmHg. Mild to moderate eccentric MR. Improved ABBI and peak resting gradient is around 40 mmHg much improved than on admission which was around 80-100 mmHg. Moderate aortic valve sclerosis without any clear evidence of stenosis. Mild TR Mildly dilated LA and IVC not well-visualized. Colin Brandt (Electronically Signed) Final Date: 15 November 2024 08:35
--- NOTE | 2024-11-12 21:50 | PC.NURSE ---
Pt unable to verify his home medications. States to ask his sister.
[2024-11-12 23:00] LABS: Sodium 147 mMol/L (136-145)
[2024-11-13] VITALS (13 sets, daily range): BP systolic 105–142; BP diastolic 59–78; PULSE 81–106; RESP 17–22; TEMP 36.1–37.1; O2SAT 92–100; BMI 21.4; BMI 15.0
[2024-11-13] MEDS: ACETYLCYSTEINE RT SOL 10% 4 ML NEBU 3 ML INH (02:05)
[2024-11-13] MEDS: ALBUTEROL/IPRATROPIUM (Duoneb) RT SOL 3 ML NEBU INH ×2 (02:05→06:31)
[2024-11-13 02:52] LABS: Basophils # (Auto) 0.1 Thou/mm3 (0.0-0.2); Basophils % (Auto) 0 % (0-2.5); Eosinophils # (Auto) 0.5 Thou/mm3 (0.0-0.5); Eosinophils % (Auto) 2 % (0-10); Hematocrit 25.9 % (41.0-53.0); Immature Granulocytes Auto 0.21 Thou/mm3 (0.00-0.00); Lymphocytes # (Auto) 1.5 Thou/mm3 (1.0-4.8); Lymphocytes % (Auto) 7 % (10-50); Mean Corpuscular HGB Conc 31.7 g/dl (31.0-37.0); Mean Corpuscular Hemoglobin 31.2 pg (25.0-35.0); Mean Corpuscular Volume 99 fL (80-100); Monocytes # (Auto) 0.9 Thou/mm3 (0.0-0.8); Monocytes % (Auto) 4 % (0-12); Neutrophils # (Auto) 18.7 Thou/mm3 (1.8-7.7); Neutrophils % (Auto) 86 % (37-80); Nucleated Red Blood Cell # 0.05 Thou/mm3 (0.00-0.00); Nucleated Red Blood Cell % 0 /100 WBC (0); Platelet Count 309 Thou/mm3 (140-440); RDW Standard Deviation 69.5 fL (35.1-43.9); Red Blood Count 2.63 Miln/mm3 (4.50-5.90); White Blood Count 21.8 Thou/mm3 (3.8-10.6)
[2024-11-13 03:07] LABS: Hemoglobin 8.2 g/dL (13.5-16.0)
[2024-11-13 03:19] LABS: Alanine Aminotransferase 62 U/L (10-49); Albumin, Serum 3.1 gm/dL (3.5-5.0); Albumin/Globulin Ratio 1.1 (1.2-2.2); Alkaline Phosphatase 121 U/L (46-116); Anion Gap 8 (7-16); Aspartate Amino Transferase 63 U/L (0-34); BUN/Creatinine Ratio 16 Ratio (12-20); Bilirubin,Total 0.5 mg/dL (0.3-1.2); Blood Urea Nitrogen 11 mg/dL (9-23); Calcium 8.0 mg/dL (8.3-10.6); Calcium (Corrected) 8.7 mg/dL (8.5-10.1); Carbon Dioxide 28.3 mMol/L (20.0-31.0); Chloride 110 mMol/L (98-107); Creatinine (Component) 0.7 mg/dL (0.6-1.3); Estimated Creatinine Clearance 90.8 mL/min (>60); Globulin 2.9 gm/dL (2.3-3.5); Glucose 132 mg/dL (74-106); Magnesium 2.1 mg/dL (1.6-2.6); Osmolality,Calculated 291 (275-295); Phosphorous 2.7 mg/dL (2.4-5.1); Potassium 3.1 mMol/L (3.4-5.1); Sodium 146 mMol/L (136-145); Total Protein 6.0 gm/dL (5.7-8.2); eGFR > 60 See Note
[2024-11-13] MEDS: DEXTROSE 5%-0.45% NS 1,000 ML 36 ML IV (05:04)
[2024-11-13] MEDS: LACTULOSE SYRUP 20 GM/30 ML UDC NG (05:06)
[2024-11-13] MEDS: MIDODRINE 5 MG TABLET NG (05:07)
--- NOTE | 2024-11-13 07:37 | ESPR_ITS ---
Documentation for date of: 11/13/24 Subjective Subjective Interval history: Patient examined at bedside. Patient reports that he feels better today but does not remember the past few days in the hospital, nor does he remember the events leading up to his hospitalization. Exam Vital Signs Temp Pulse Resp BP Pulse Ox O2 Del Method O2 Flow Rate 97.4 F 93 18 121/72 100 Nasal Cannula 3 11/13/24 04:00 11/13/24 06:33 11/13/24 06:33 11/13/24 05:07 11/13/24 06:33 11/13/24 04:00 11/13/24 06:33 FiO2 96 11/12/24 19:13 Narrative Exam General: No acute distress, cachectic, temporal wasting, diffuse muscle atrophy HENT: Normocephalic, atraumatic, normal hearing, excess secretions requiring suction Neck: Supple, non-tender, no JVD Lungs: On oxy mask, symmetric chest rise Heart: Peripheral pulses intact bilaterally Abdomen: Soft, non-distended Neurologic: Mental status: Orientation: Awake, alert, oriented to person, place, and situation Communication: Patient can follow simple instructions Language: Can say full name, can carry on a conversation, low volume, normal rate Cranial nerves: CN II: Visual rae intact CN III: Pupils equal, round, and reactive to light CN III, IV, : No gaze deviation, no nystagmus Horizontal pursuit: intact Vertical pursuit: intact CN V: Facial sensation to light touch intact bilaterally at the forehead, cheeks, and jaw line CN VII: Face symmetric, no facial droop appreciated CN VIII: Able to hear and respond to conversation at normal volume, intact to finger rub CN IX, X: Palate elevation symmetric, uvula midline CN XI: Head turn and shoulder shrug strong, symmetric bilaterally CN XII: Normal tongue protrusion without deviation, no fasciculations Motor: No abnormal movements or fasciculations Patient able to sit on edge of bed, stand with support, and transferred to bedside commode with support Muscle strength: Shoulder abduction: R 5/5 L 5/5 Elbow flexion: R 5/5 L 5/5 Elbow extension: R 5/5 L 5/5 Hip flexion: R 5/5 L 5/5 Hip extension: R 5/5 L 5/5 Knee flexion: R 5/5 L 5/5 Knee extension: R 5/5 L 5/5 Sensory: RUE: Light touch intact LUE: Light touch intact RLE: Light touch intact LLE: Light touch intact Reflexes: Biceps (C5-6): R 2+ L 2+ Brachioradialis (C5-6): R 2+ L 2+ Triceps (C7-8): R 2+ L 2+ Patellae (L3-4): R 2+ L 2+ Achilles (S1-2):R 2+ L 2+ Cerebellum: RUE: No dysmetria (finger to nose) LUE: No dysmetria (finger to nose) Objective Labs 11/14/24 05:25 11/14/24 05:25 Labs: Laboratory Results - last 24 hr 11/12/24 11/12/24 11/12/24 07:10 11:11 14:18 WBC RBC Hgb Hct MCV MCH MCHC RDW Std Deviation Plt Count Neut % (Auto) Lymph % (Auto) [place] % (Auto) Eos % (Auto) Baso % (Auto) Neut # (Auto) Lymph # (Auto) [place] # (Auto) Eos # (Auto) Baso # (Auto) Immature Gran # (Auto) Absolute Nucleated RBC Immature Gran % Nucleated RBC % Sodium 151 H 150 H 147 H Potassium Chloride Carbon Dioxide Anion Gap BUN Creatinine Estim Creat Clear Calc eGFR BUN/Creatinine Ratio Glucose Calculated Osmolality Calcium Corrected Calcium Phosphorus Magnesium Total Bilirubin AST ALT Alkaline Phosphatase Total Protein Albumin Globulin Albumin/Globulin Ratio 11/12/24 11/12/24 11/13/24 18:19 22:20 02:36 WBC 21.8 H D RBC 2.63 L Hgb 8.2 L Hct 25.9 L MCV 99 MCH 31.2 MCHC 31.7 RDW Std Deviation 69.5 H Plt Count 309 Neut % (Auto) 86 H Lymph % (Auto) 7 L [place] % (Auto) 4 Eos % (Auto) 2 Baso % (Auto) 0 Neut # (Auto) 18.7 H Lymph # (Auto) 1.5 [place] # (Auto) 0.9 H Eos # (Auto) 0.5 Baso # (Auto) 0.1 Immature Gran # (Auto) 0.21 H Absolute Nucleated RBC 0.05 H Immature Gran % 1 H Nucleated RBC % 0 Sodium 147 H 147 H 146 H Potassium 3.1 L D Chloride 110 H Carbon Dioxide 28.3 Anion Gap 8 BUN 11 Creatinine 0.7 Estim Creat Clear Calc 90.8 eGFR > 60 BUN/Creatinine Ratio 16 Glucose 132 H Calculated Osmolality 291 Calcium 8.0 L Corrected Calcium 8.7 Phosphorus 2.7 Magnesium 2.1 Total Bilirubin 0.5 AST 63 H ALT 62 H Alkaline Phosphatase 121 H Total Protein 6.0 Albumin 3.1 L Globulin 2.9 Albumin/Globulin Ratio 1.1 L ABG Interpretation ABG results: 11/03/24 11/03/24 11/03/24 11:20 14:11 17:06 ABG pH 7.35 7.34 L 7.20 L D ABG pCO2 21 L 20 L 45 D ABG pO2 193 H 82 L D 78 L ABG HCO3 12 L 11 L 16 L ABG O2 Saturation 100 H 96 91 ABG Base Excess -12 L -14 L -12 L VBG pH VBG pCO2 VBG pO2 VBG Base Excess 11/04/24 11/04/24 11/04/24 00:00 04:29 05:15 ABG pH 7.50 H D ABG pCO2 30 L D ABG pO2 109 H D ABG HCO3 23 ABG O2 Saturation 100 H ABG Base Excess 1 VBG pH 7.43 7.52 VBG pCO2 35 L 27 L VBG pO2 43 57 VBG Base Excess -1 0 11/05/24 11/06/24 11/06/24 04:49 03:40 21:45 ABG pH 7.48 H 7.41 ABG pCO2 35 43 ABG pO2 74 L D 108 D ABG HCO3 26 27 H ABG O2 Saturation 96 99 H ABG Base Excess 3 2 VBG pH 7.49 VBG pCO2 39 D VBG pO2 39 VBG Base Excess 6 H 11/07/24 11/08/24 11/09/24 05:59 04:19 04:11 ABG pH 7.49 H 7.48 H 7.44 ABG pCO2 39 38 40 ABG pO2 71 L D 77 L 63 L ABG HCO3 29 H 29 H 27 H ABG O2 Saturation 96 97 93 ABG Base Excess 6 H 5 H 3 VBG pH VBG pCO2 VBG pO2 VBG Base Excess 11/10/24 07:02 ABG pH 7.45 ABG pCO2 42 ABG pO2 83 D ABG HCO3 29 H ABG O2 Saturation 98 ABG Base Excess 5 H VBG pH VBG pCO2 VBG pO2 VBG Base Excess Quality Measures Quality Measures sepsis Current suspected stage: ruled out Possible source: pulmonary Blood cultures ordered: completed in ED Antibiotic ordered: Yes Assessment & Plan Assessment Current Active Medications: Generic Name Dose Route Start Last Admin Trade Name Freq PRN Reason Stop Dose Admin Acetaminophen 325 mg 11/05/24 09:48 Acetaminophen 325 Mg Tablet PO 12/03/24 15:31 Q6H PRN Fever >101.5 Acetylcysteine 3 ml 11/11/24 11:00 11/13/24 06:31 Acetylcysteine Rt Anastacia 10% 4 Ml Nebu INH 12/11/24 10:59 Not Given Q4HRRT BETO Albuterol/Ipratropium 3 ml 11/11/24 11:00 11/13/24 06:31 Albuterol/Ipratropium (Duoneb) Rt Anastacia 3 Ml Nebu INH 12/11/24 10:59 3 ml Q4HRRT BETO Administration Aspirin 81 mg 11/11/24 08:25 11/12/24 09:47 Aspirin 81 Mg Chew NG 12/04/24 08:59 81 mg QDAY BETO Administration Atorvastatin Calcium 40 mg 11/11/24 08:25 11/12/24 20:59 Atorvastatin Calcium 20 Mg Tablet NG 12/03/24 20:59 40 mg HS BETO Administration Dextrose 25 ml 11/11/24 16:45 Dextrose 50%-Water Inj 50 Ml Syringe IV 12/11/24 16:44 Q15MIN PRN BG 50-70 responsive npo pt Dextrose 50 ml 11/11/24 16:45 Dextrose 50%-Water Inj 50 Ml Syringe IV 12/11/24 16:44 Q15MIN PRN BG <50 OR BG <70 & pt unresponsive Folic Acid 1 mg 11/11/24 09:00 11/12/24 09:47 Folic Acid 1 Mg Tablet NG 12/11/24 08:59 1 mg QDAY BETO Administration Glucagon 1 mg 11/11/24 16:45 Glucagon Inj 1 Mg Vial IM Q15MIN PRN BG <70, and no IV access Ferric Sodium Gluconate 125 mg 110 mls @ 110 mls/hr 11/08/24 17:15 11/12/24 12:07 / Sodium Chloride IV 12/08/24 17:14 110 mls/hr QDAY BETO Administration Dextrose/Sodium Chloride 1,000 mls @ 36 mls/hr 11/12/24 22:16 11/13/24 05:04 D5-1/2ns IV 12/12/24 22:14 36 mls/hr .Q24H BETO Administration Insulin Human Lispro 0 unit 11/12/24 17:15 11/12/24 20:35 Insulin Lispro (Admelog) 1 Unit/0.01 Ml Unit SC 12/12/24 17:14 Not Given ACHS BETO Protocol Lactulose 20 gm 11/07/24 14:00 11/13/24 05:06 Lactulose Syrup 20 Gm/30 Ml Udc NG 12/07/24 13:59 20 gm TID BETO Administration Protocol Metoprolol Succinate 25 mg 11/11/24 09:00 11/12/24 09:48 Metoprolol Succinate Xl 25 Mg Tabcr NG 12/10/24 10:59 25 mg QDAY BETO Administration Midodrine 5 mg 11/11/24 08:26 11/13/24 05:07 Midodrine 5 Mg Tablet NG 12/07/24 13:59 5 mg TID BETO Administration Multivitamins/Minerals 15 ml 11/11/24 09:00 11/12/24 09:47 Multivitamin 15 Ml Udc NG 12/11/24 08:59 15 ml QDAY BETO Administration Ondansetron HCl 4 mg 11/03/24 15:32 Ondansetron Inj 2 Mg/Ml Inj 2 Ml IVP 12/03/24 15:31 Q6H PRN NAUSEA OR VOMITING Protocol Pantoprazole Sodium 40 mg 11/05/24 21:00 11/12/24 20:59 Pantoprazole Inj 40 Mg Vial IVP 12/05/24 20:59 40 mg BID BETO Administration Rifaximin 550 mg 11/08/24 13:45 11/12/24 21:00 Rifaximin 550 Mg Tablet PO 11/15/24 13:44 550 mg BID BETO Administration Sennosides 1 tab 11/04/24 09:00 11/12/24 09:47 Senna Tablet PO 12/04/24 08:59 1 tab QDAY BETO Administration Protocol Sodium Chloride 3 ml 11/03/24 10:58 Sodium Chloride Rt Anastacia 0.9% 3 Ml Nebu INH 12/03/24 10:57 PRN PRN SOLN Thiamine HCl 100 mg 11/11/24 09:00 11/12/24 11:19 Thiamine 100 Mg Tablet NG 12/11/24 08:59 100 mg QDAY BETO Administration Plan # Generalized weakness, improving # Acute encephalopathy, improving Initial presentation in ED: generalized weakness x2 weeks, AMS, increased work of breathing Patient presentation on 11/13 showed markedly improved orientation, vocalization, muscle strength BMI of 18.3 kg/m, cachectic, diffuse muscle atrophy Lactic acid: 16 --> 13.1 --> 3.5 --> 2.9 UA negative, positive for hyaline casts. Salicylate level less than 3, UDS negative, EtOH less than 3, cocci IgM and IgG negative, hepatitis A/B/C nonreactive. B12 WNL 699, folate WNL 13.89, TSH 1.66 WNL, free T40.51 Low. Pro-Jonny 1.93 --> 4.24 CK WNL 41 TTE showed moderate left ventricle systolic dysfunction, severe mitral regurgitation, some LVOT obstruction. C/F Takotsubo cardiomyopathy. CT head without contrast 11/07: Negative for acute hemorrhage, midline shift, mass effect. Diffuse cortical atrophy. MRI brain without contrast 11/09: Punctate foci site in frontal parietal b/l white matter on FLAIR, non-specific, chronic, NOT suggestive of demyelinating diseae Acute encephalopathy DDX: infectious (PNA), hypoxia, alcohol withdrawal, hepatic encephalopathy, shock (septic/distributive vs hypovolemic), metabolic (lactic acidosis) Weakness DDX: alcohol-related polyneuropathy, inflammatory myopathy, deconditioning, nutritional/vitamin deficiency Plan: - Pending EEG read - No need for further workup as patient presentation improving - Continue thiamine, folate - Pending AChR Ab (myasthenia gravis) - If weakness persist even after physical therapy, we will consider doing EMG nerve conduction study of both upper and lower extremities as an outpatient # Alcohol withdrawal, resolved Hx: EtOH use disorder, drinks at least 2 large bottles of hard liquor along with beer on a daily basis Patient given phenobarbital, Versed, chlordiazepoxide. Required high levels of sedation for agitation while intubated Plan: - Management per primary team #Abnormal EKG #Takotsubo syndrome vs LAD, complicated by #Sigmoid interventricular septum, possibly leading to #Moderate to severe eccentric MR, leading to #Moderate to severe PAH #HFrEF with apical akinesis #NSTEMI type II most likely type I Troponin 4.326 --> 4.32 --> 3.786 EKG was significant for sinus tachycardia with deep symmetric T wave inversion in lateral leads V4 to V6, and inverted T waves in lead I and aVL. TTE 11/03/2024 LVEF 35 to 40%, decreased apical motion, moderate left ventricle systolic dysfunction, severe mitral regurgitation, some LVOT obstruction. BNP high 2306 Plan: -Management per primary, cardiology - metoprolol succinate XL 25 daily, ASA 81 mg daily, Atorvastatin 40 mg daily # Distributive shock, secondary to sepsis, septic shock secondary to aspiration pneumonia, resolved Plan: - Management per primary team #Acute hypoxic respiratory failure secondary to pneumonia, respiratory failure in setting of shock #Status post extubation 11/10/2024 #Aspiration pneumonia DDX: aspiration pneumonia in the presence of dysphagia due to history of esophageal cancer Flu, COVID negative, cocci IgM negative, MRSA nasal screen negative, Blood cultures negative CTA: significant right-sided pneumonia and left base pneumonia Plan: - Management per primary #Decompensated cirrhosis #Alcohol-related liver disease #Transaminitis #Suspected hepatic encephalopathy #GI bleed workup #Melena # Diarrhea Hep A/B/C non-reactive 11/04 Cocci negative 11/04 CTA abdomen showed evidence of cirrhosis Liver ultrasound shows ascites EGD 11/07/2024 showed grade 1 esophageal varices, 2+ esophageal varices not large enough for band ligation MELD score of 7, 1.9% estimated 3-month mortality Child-Pug Score: 8 Plan: - Management per primary #Hx esophageal cancer, in remission s/p esophagectomy # Moderate oropharyngeal dysphagia Follow-up: - Management per primary #Large right inguinal hernia #Dilated bowel loops Hernia is reducible, low suspicion of incarceration CTA abdomen pelvis shows large right inguinal hernia noted on imaging as well, no radiological signs of incarceration Plan: - Management per primary team - General Surgery consulted, no surgical intervention needed in this admission, can follow up o/p #Hypernatremia, resolved Plan: - Management per primary #Leukocytosis, resolved Initial WBC: 38.2 Plan: - Management per primary #Normocytic normochromic anemia versus iron deficiency anemia Initial hgb: 8.8, stable DDX: Nutritional deficiency, in the setting of sepsis, GI bleed, low suspicion of hemolysis Plan: - Management per primary, cardiology Discussed with Dr. Yifan Vargas, PGY1 Attending Provider Attestation/Addendum I personally have seen and examined the patient at bedside and I agree with resident's findings, assessment and plan of care. Patient mental status strength of extremities are gradually improving. Continue with current management follow with the workup as it becomes available
[2024-11-13] MEDS: METOPROLOL SUCCINATE XL 25 MG TABCR NG (09:50)
[2024-11-13] MEDS: ASPIRIN 81 MG CHEW NG (09:50)
[2024-11-13] MEDS: FOLIC ACID 1 MG TABLET NG (09:53)
[2024-11-13] MEDS: MULTIVITAMIN 15 ML UDC NG (09:53)
[2024-11-13] MEDS: THIAMINE 100 MG TABLET NG (09:53)
--- NOTE | 2024-11-13 12:04 | PD.RESPRO ---
Documentation for date of: 11/13/24 Subjective Subjective Interval history: The patient was seen and examined at the bedside this morning. He reported being able to eat and drink. -Patient has been extubated and on oxygen via Ventimask. Tachypnea and cough has significantly improved that was causing reduced ability to clear his secretions. -On examination pulm crackles has been improving, and his urine output was around 800cc after Lasix IV once 2 days ago. - Na - 156 and lasix held. now on D5 1/2 NS - Stopped pressor support. Avoid inotropic's pressor support. -Continue with aspirin 81 Mg daily, atorvastatin 40 Mg daily at night, ferric gluconate 125 Mg IV daily, folic acid 1 mg daily, metoprolol succinate 25 Mg daily, midodrine 5 Mg 3 times daily, and thiamine 100 Mg daily. -Ordered limited TTE for reevaluation of LVEF, LVOT obstruction and ABBI - Will plan left and right heart cardiac catheterization on coming Saturday or Saturday prior to discharge when hemodynamically stable.. Exam Vital Signs Temp Pulse Resp BP Pulse Ox O2 Del Method O2 Flow Rate 98.0 F 106 H 19 142/62 H 99 Nasal Cannula 3 11/13/24 08:00 11/13/24 09:50 11/13/24 08:00 11/13/24 09:50 11/13/24 08:00 11/13/24 08:00 11/13/24 08:00 FiO2 96 11/12/24 19:13 Narrative Exam General: No acute distress, on oxy mask, responding well to commands, interacting with soft voice HEENT: Moist mucous membranes, oropharynx clear Neck: Supple, No masses, No JVD CVS: S1, S2 regular rate and rhythm, No murmurs, rubs or gallops Lungs: Mild wheezing throughout the lung field, improving rhonchi appreciated throughout the lung field, mild bibasilar crackles appreciated Abd: Soft, NT/ND, +BS, hepatomegaly appreciated Ext: No edema, warm and well perfused Skin: No rash Psych: Unable to obtain Objective Labs 11/15/24 04:46 11/15/24 04:46 Labs: Laboratory Results - last 24 hr 11/12/24 11/12/24 11/12/24 14:18 18:19 22:20 WBC RBC Hgb Hct MCV MCH MCHC RDW Std Deviation Plt Count Neut % (Auto) Lymph % (Auto) [place] % (Auto) Eos % (Auto) Baso % (Auto) Neut # (Auto) Lymph # (Auto) [place] # (Auto) Eos # (Auto) Baso # (Auto) Immature Gran # (Auto) Absolute Nucleated RBC Immature Gran % Nucleated RBC % Sodium 147 H 147 H 147 H Potassium Chloride Carbon Dioxide Anion Gap BUN Creatinine Estim Creat Clear Calc eGFR BUN/Creatinine Ratio Glucose Calculated Osmolality Calcium Corrected Calcium Phosphorus Magnesium Total Bilirubin AST ALT Alkaline Phosphatase Total Protein Albumin Globulin Albumin/Globulin Ratio 11/13/24 02:36 WBC 21.8 H D RBC 2.63 L Hgb 8.2 L Hct 25.9 L MCV 99 MCH 31.2 MCHC 31.7 RDW Std Deviation 69.5 H Plt Count 309 Neut % (Auto) 86 H Lymph % (Auto) 7 L [place] % (Auto) 4 Eos % (Auto) 2 Baso % (Auto) 0 Neut # (Auto) 18.7 H Lymph # (Auto) 1.5 [place] # (Auto) 0.9 H Eos # (Auto) 0.5 Baso # (Auto) 0.1 Immature Gran # (Auto) 0.21 H Absolute Nucleated RBC 0.05 H Immature Gran % 1 H Nucleated RBC % 0 Sodium 146 H Potassium 3.1 L D Chloride 110 H Carbon Dioxide 28.3 Anion Gap 8 BUN 11 Creatinine 0.7 Estim Creat Clear Calc 90.8 eGFR > 60 BUN/Creatinine Ratio 16 Glucose 132 H Calculated Osmolality 291 Calcium 8.0 L Corrected Calcium 8.7 Phosphorus 2.7 Magnesium 2.1 Total Bilirubin 0.5 AST 63 H ALT 62 H Alkaline Phosphatase 121 H Total Protein 6.0 Albumin 3.1 L Globulin 2.9 Albumin/Globulin Ratio 1.1 L ABG Interpretation ABG results: 11/03/24 11/03/24 11/03/24 11:20 14:11 17:06 ABG pH 7.35 7.34 L 7.20 L D ABG pCO2 21 L 20 L 45 D ABG pO2 193 H 82 L D 78 L ABG HCO3 12 L 11 L 16 L ABG O2 Saturation 100 H 96 91 ABG Base Excess -12 L -14 L -12 L VBG pH VBG pCO2 VBG pO2 VBG Base Excess 11/04/24 11/04/24 11/04/24 00:00 04:29 05:15 ABG pH 7.50 H D ABG pCO2 30 L D ABG pO2 109 H D ABG HCO3 23 ABG O2 Saturation 100 H ABG Base Excess 1 VBG pH 7.43 7.52 VBG pCO2 35 L 27 L VBG pO2 43 57 VBG Base Excess -1 0 11/05/24 11/06/24 11/06/24 04:49 03:40 21:45 ABG pH 7.48 H 7.41 ABG pCO2 35 43 ABG pO2 74 L D 108 D ABG HCO3 26 27 H ABG O2 Saturation 96 99 H ABG Base Excess 3 2 VBG pH 7.49 VBG pCO2 39 D VBG pO2 39 VBG Base Excess 6 H 11/07/24 11/08/24 11/09/24 05:59 04:19 04:11 ABG pH 7.49 H 7.48 H 7.44 ABG pCO2 39 38 40 ABG pO2 71 L D 77 L 63 L ABG HCO3 29 H 29 H 27 H ABG O2 Saturation 96 97 93 ABG Base Excess 6 H 5 H 3 VBG pH VBG pCO2 VBG pO2 VBG Base Excess 11/10/24 07:02 ABG pH 7.45 ABG pCO2 42 ABG pO2 83 D ABG HCO3 29 H ABG O2 Saturation 98 ABG Base Excess 5 H VBG pH VBG pCO2 VBG pO2 VBG Base Excess Quality Measures Quality Measures sepsis Current suspected stage: ruled out Possible source: pulmonary Blood cultures ordered: completed in ED Antibiotic ordered: Yes Assessment & Plan Assessment Current Active Medications: Generic Name Dose Route Start Last Admin Trade Name Freq PRN Reason Stop Dose Admin Acetaminophen 325 mg 11/05/24 09:48 Acetaminophen 325 Mg Tablet PO 12/03/24 15:31 Q6H PRN Fever >101.5 Albuterol/Ipratropium 3 ml 11/13/24 10:30 Albuterol/Ipratropium (Duoneb) Rt Anastacia 3 Ml Nebu INH 12/11/24 10:59 Q4HRRT PRN wheezing Aspirin 81 mg 11/14/24 09:00 Aspirin 81 Mg Chew PO 12/14/24 08:59 QDAY BETO Atorvastatin Calcium 40 mg 11/13/24 21:00 Atorvastatin Calcium 20 Mg Tablet PO 12/13/24 20:59 HS BETO Dextrose 25 ml 11/11/24 16:45 Dextrose 50%-Water Inj 50 Ml Syringe IV 12/11/24 16:44 Q15MIN PRN BG 50-70 responsive npo pt Dextrose 50 ml 11/11/24 16:45 Dextrose 50%-Water Inj 50 Ml Syringe IV 12/11/24 16:44 Q15MIN PRN BG <50 OR BG <70 & pt unresponsive Folic Acid 1 mg 11/14/24 09:00 Folic Acid 1 Mg Tablet PO 12/14/24 08:59 QDAY BETO Glucagon 1 mg 11/11/24 16:45 Glucagon Inj 1 Mg Vial IM Q15MIN PRN BG <70, and no IV access Ferric Sodium Gluconate 125 mg 110 mls @ 110 mls/hr 11/08/24 17:15 11/12/24 12:07 / Sodium Chloride IV 12/08/24 17:14 110 mls/hr QDAY BETO Administration Insulin Human Lispro 0 unit 11/12/24 17:15 11/13/24 07:50 Insulin Lispro (Admelog) 1 Unit/0.01 Ml Unit SC 12/12/24 17:14 Not Given ACHS [facility] Protocol Lactulose 20 gm 11/13/24 14:00 Lactulose Syrup 20 Gm/30 Ml Udc PO 12/13/24 13:59 TID [facility] Protocol Metoprolol Succinate 25 mg 11/14/24 09:00 Metoprolol Succinate Xl 25 Mg Tabcr NG 12/14/24 08:59 QDAY [facility] Midodrine 5 mg 11/13/24 14:00 Midodrine 5 Mg Tablet PO 12/13/24 13:59 TID [facility] Multivitamins/Minerals 15 ml 11/14/24 09:00 Multivitamin 15 Ml Udc PO 12/14/24 08:59 QDAY [facility] Ondansetron HCl 4 mg 11/03/24 15:32 Ondansetron Inj 2 Mg/Ml Inj 2 Ml IVP 12/03/24 15:31 Q6H PRN NAUSEA OR VOMITING Protocol Pantoprazole Sodium 40 mg 11/05/24 21:00 11/13/24 09:53 Pantoprazole Inj 40 Mg Vial IVP 12/05/24 20:59 40 mg BID BETO Administration Rifaximin 550 mg 11/08/24 13:45 11/13/24 09:53 Rifaximin 550 Mg Tablet PO 11/15/24 13:44 550 mg BID BETO Administration Sennosides 1 tab 11/04/24 09:00 11/13/24 09:53 Senna Tablet PO 12/04/24 08:59 1 tab QDAY BETO Administration Protocol Sodium Chloride 3 ml 11/03/24 10:58 Sodium Chloride Rt Anastacia 0.9% 3 Ml Nebu INH 12/03/24 10:57 PRN PRN SOLN Thiamine HCl 100 mg 11/14/24 09:00 Thiamine 100 Mg Tablet PO 12/14/24 08:59 QDAY BETO Plan The patient is a 49-year-old male with significant past medical history of esophageal cancer currently on remission, and hypertension presented to ED with chief complaint of acute SOB and generalized weakness is currently being treated for septic shock, Takotsubo syndrome complicated by sigmoid interventricular septum further leading to tachycardia and NSTEMI type II. #Acute encephalopathy, improved Likely multifactorial 2/2 #Alcohold withdrawal, and #Demylinating disease pattern 2/2 #Alcohol abuse disorder Patient presented with generalized weakness, later required intubation in the setting of aspiration pneumonia and septic shock. However, the patient has not been tolerating spontaneous breathing trials. BL UE weakness was there so MRI brain was done that revealed punctate foci increased signal in the frontal parietal white matter, demyelinating disease pattern. -Management deferred to primary hospitalist team #Abnormal EKG, likely 2/2 #Takotsubo syndrome vs LAD, complicated by #Sigmoid interventricular septum, possibly leading to #Moderate to severe eccentric MR, leading to #Moderate to severe PAH #HFrEF with apical akinesis EKG was significant for sinus tachycardia with deep symmetric T wave inversion in lateral leads V4 to V6, and inverted T waves in lead I and aVL. TTE on 11/03/2024 revealed: Normal LV size and moderate LV systolic dysfunction with an EF of 35 to 40%. Apical akinesis with hypokinesis of the mid to apical anterior, anterolateral and apical septal segments indicating possible Takotsubo syndrome versus LAD involvement. RV Normal in size and function. 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 Severe LA dilatation. Trace AI Moderate TR with mild RA dilatation. No Pericardial Effusion. IVC not well-visualized. Repeat limited TTE on 11/04/2024 revealed: Normal LV size and mildly decreased LV systolic function with an EF of around 40 to 45%. EF improved from yesterday. Hypokinesis of the mid to apical anterior and anterolateral and apical segments appear improved. Apical akinesis still noted. Sigmoid septum noted with LVOT obstruction leading to moderate to severe eccentric MR directed anteriorly. Gradient measurement not accurate due to contamination with MR jet. Normal RV size and function. No pericardial effusion -As the patient has sigmoid interventricular septum, and recent stressor likely leading to Takotsubo syndrome, leading to tachycardia of the base of left ventricle, which is further pulling in mitral valve leading to MR resulting with moderate to severe PAH. -Volume status is critical, to maintain euvolemia, as hypovolemia will cause decrease venous return, resulting as compensatory tachycardia of upper left ventricle leading to further MR, with increased pulmonary arterial pressure and shunt reversal. On the other hand, if there is hypervolemia leading to increased venous return, will complicate MR and increased pulmonary artery pressure. -Continue on metoprolol XL 25 daily -CXR done on 11/10/2024 revealed mild improvement in pulmonary vascular congestions compared to CXR done on 11/09/2024. -Patient has been extubated and on oxygen via Ventimask. Tachypnea and cough has significantly improved that was causing reduced ability to clear his secretions. -On examination pulm crackles has been improving, and his urine output was around 800cc after Lasix IV once 2 days ago. - Na - 156 and lasix held. now on D5 1/2 NS - Stopped pressor support. Avoid inotropic's pressor support. -Continue with aspirin 81 Mg daily, atorvastatin 40 Mg daily at night, ferric gluconate 125 Mg IV daily, folic acid 1 mg daily, metoprolol succinate 25 Mg daily, midodrine 5 Mg 3 times daily, and thiamine 100 Mg daily. -Ordered limited TTE for reevaluation of LVEF, LVOT obstruction and ABBI - Will plan left and right heart cardiac catheterization on coming Saturday or Saturday prior to discharge when hemodynamically stable.. #Anemia Likely multifactorial in the setting of nutritional deficiency along with iron, vitamin B12 and folic acid deficiency MCV is elevated at 99. Given his severe alcohol abuse patient is probably B12 as well as folate deficient. Patient would benefit from replacement of iron and B12 and folate which will eventually help anemia long-term and improve his tachycardia which would help with his LVOT obstruction and ABBI along with improvement of sepsis and alcohol withdrawal syndrome - Recommended IV iron infusion, vitamin B12 and folic acid #Cirrhosis #Dilated esophageal varices #Hypertensive portal gastropathy 2/2 alcohol abuse disorder -GI Dr. Louis recommended octreotide drip for 5 days. #Acute hypoxic respiratory failure, improving #Septic shock, improved #Aspiration pneumonia, improving #Severe lactic acidosis, imporved Currently, the patient is intubated but saturating on 21% FiO2. Initially, the patient presented with blood pressure of 81/51, pulse 127, RR 40, and white count 33.8 meeting 3/4 SIRS criteria, chest x-ray significant for right sided middle and lower lobe pneumonia, CT chest abdomen and pelvis revealing right middle and lower lobe pneumonia, and left lower lobe pneumonia, and lactic acid level of 16, with endorgan failure as acute hypoxic respiratory failure requiring intubation. Patient received 2.5 L of bolus IV fluid Unable to wean off of mechanical ventilation and was following commands, but BL UE weakness was there so MRI brain was done that revealed: Punctate foci increased signal in the frontal parietal white matter, demyelinating disease pattern - Continue with aggressive IV antibiotics - Blood and urine culture sent, negative so far. - IgM for coccidiomycosis, negative #NSTEMI type II, improved Likely multifactorial secondary to septic shock, Takotsubo syndrome, sigmoid interventricular septum leading to MR. No significant risk factor for STEMI, except for hypertension, as patient denies smoking or illicit drug use, and lipid panel was significant for LDL 39 and HDL 53. EKG unremarkable for STEMI - Heparin drip stopped - Left and right heart cardiac catheterization on coming Saturday or Saturday - Aspirin 81 Mg daily - Atorvastatin 40 Mg daily at night Thank you for cardiology consultation. We really appreciate for the opportunity to participate in this patient care. Cardiology team will continue to follow-up on this patient. The patient's management plan was discussed with my attending physician MD Ventura Montes MD, PGY3 Attending Provider Attestation/Addendum I have personally seen and examined the patient separately on the above date of service and discussed the plan of care with the resident. I reviewed the resident Dr. Ventura Myers consultation progress note and agree with the resident findings and plan in the note above and have also edited the documentation to reflect my findings and plan. Colin Brandt M.D. Interventional Cardiology
[2024-11-13 12:44] LABS: Sodium 145 mMol/L (136-145)
[2024-11-13] MEDS: POTASSIUM CHLORIDE 10% 20 MEQ/15 ML UDC 40 MEQ PO (13:25)
[2024-11-13] MEDS: FERRIC SOD GLUC INJ 125 MG in SODIUM CHLORIDE 0.9% 100 ML 110 MG IV (13:25)
[2024-11-13] MEDS: MIDODRINE 5 MG TABLET PO ×2 (13:26→21:19)
--- NOTE | 2024-11-13 13:31 | ESPR_ITS ---
<Statement entered by Vilma Bailey MD - 11/13/24 18:17> A 49-year-old male with a history of hypertension, esophageal cancer (in remission), and chronic alcohol use presented on November 03, 2024, with progressive weakness, fatigue, and severe shortness of breath. He was intubated for acute respiratory failure and distributive versus septic shock in settings of severe pneumonia which has since resolved.. His condition worsened with gastrointestinal bleeding, suspected cirrhosis, and hepatic encephalopathy. Liver imaging confirmed cirrhosis and ascites, and he was treated for alcohol-related liver disease. Neurologically, he had lethargy and upper extremity weakness, with MRI suggesting a demyelinating process. Cardiac evaluation showed reduced ejection fraction and possible Takotsubo cardiomyopathy, requiring early vasopressor support. By November 10, he was extubated and transitioned to oxygen. EKG showed deep T wave inversion in lateral leads and inverted T waves in lead I and aVL. He did have an NSTEMI type II on admission. However, additional echo findings included sigmoid interventricular septum, moderate to severe eccentric MR, moderate to severe PAH, HFrEF with apical akinesis. For this, cardiology is planning on cath possibly Saturday or Saturday. We've been treating hypernatremia which had resolved with IV NS. Now encouraging oral intake and fluids. Mentation over all improving, he is more awake and responsive, tolerating oral intake. Mucous secretion overall improved with MUCINEX and DuoNebs. Hemoglobin has been stable around 8.0. Pancultures have been negative. Case was discussed with attending physician. Vilma Bailey DO PGY II This document was transcribed using voice recognition technology. Minor inaccuracies may be present. Documentation for date of: 11/13/24 Subjective Subjective Interval history: 11/13: Patient was seen and examined at bedside. No acute events took place overnight. Patient is off oxymask, and satting 99% on NC O2 3L. Patient is sitting comfortably in the bed, slowly drinking fluids without nausea/vomit. Speech evaluation cleared the patient for oral intake. Patient speaks to this group underwriter at ease and follows directions. Weakness is improving, stronger than yesterday. Denies dyspnea, tachypnea, wheezing, or chest pain. Exam Vital Signs Temp Pulse Resp BP Pulse Ox O2 Del Method O2 Flow Rate 98.0 F 94 19 111/66 99 Nasal Cannula 3 11/13/24 08:00 11/13/24 13:26 11/13/24 08:00 11/13/24 13:26 11/13/24 08:00 11/13/24 08:00 11/13/24 08:00 FiO2 96 11/12/24 19:13 Narrative Exam General: Ill-appearing man, lethargic, cachectic, temporal wasting. Neurologic: GCS 13, following commands. HEENT: Normocephalic, atraumatic, mucous membranes dry. Pupils reactive to light. Heart: RRR, systolic murmur at the mitral listening post left fifth intercostal space sternal border. Lungs: Pectus excavatum, clear to auscultation bilaterally Abdomen: Right sided reducible inguinal hernia. Right lower quadrant bruise approximately 5 cm long at the site of heparin SQ inj. Extremities: 1+ pitting edema in the distal upper extremities bilaterally. No edema in the lower extremities bilaterally. 2+ radial and dorsalis pedis pulses bilaterally. Rt knee effusions. Skin: Cool. Dry. No rash. Objective Labs 11/13/24 02:36 11/13/24 12:15 Labs: Laboratory Results - last 24 hr 11/12/24 11/12/24 11/12/24 14:18 18:19 22:20 WBC RBC Hgb Hct MCV MCH MCHC RDW Std Deviation Plt Count Neut % (Auto) Lymph % (Auto) [place] % (Auto) Eos % (Auto) Baso % (Auto) Neut # (Auto) Lymph # (Auto) [place] # (Auto) Eos # (Auto) Baso # (Auto) Immature Gran # (Auto) Absolute Nucleated RBC Immature Gran % Nucleated RBC % Sodium 147 H 147 H 147 H Potassium Chloride Carbon Dioxide Anion Gap BUN Creatinine Estim Creat Clear Calc eGFR BUN/Creatinine Ratio Glucose Calculated Osmolality Calcium Corrected Calcium Phosphorus Magnesium Total Bilirubin AST ALT Alkaline Phosphatase Total Protein Albumin Globulin Albumin/Globulin Ratio 11/13/24 11/13/24 02:36 12:15 WBC 21.8 H D RBC 2.63 L Hgb 8.2 L Hct 25.9 L MCV 99 MCH 31.2 MCHC 31.7 RDW Std Deviation 69.5 H Plt Count 309 Neut % (Auto) 86 H Lymph % (Auto) 7 L [place] % (Auto) 4 Eos % (Auto) 2 Baso % (Auto) 0 Neut # (Auto) 18.7 H Lymph # (Auto) 1.5 [place] # (Auto) 0.9 H Eos # (Auto) 0.5 Baso # (Auto) 0.1 Immature Gran # (Auto) 0.21 H Absolute Nucleated RBC 0.05 H Immature Gran % 1 H Nucleated RBC % 0 Sodium 146 H 145 Potassium 3.1 L D Chloride 110 H Carbon Dioxide 28.3 Anion Gap 8 BUN 11 Creatinine 0.7 Estim Creat Clear Calc 90.8 eGFR > 60 BUN/Creatinine Ratio 16 Glucose 132 H Calculated Osmolality 291 Calcium 8.0 L Corrected Calcium 8.7 Phosphorus 2.7 Magnesium 2.1 Total Bilirubin 0.5 AST 63 H ALT 62 H Alkaline Phosphatase 121 H Total Protein 6.0 Albumin 3.1 L Globulin 2.9 Albumin/Globulin Ratio 1.1 L ABG Interpretation ABG results: 11/03/24 11/03/24 11/03/24 11:20 14:11 17:06 ABG pH 7.35 7.34 L 7.20 L D ABG pCO2 21 L 20 L 45 D ABG pO2 193 H 82 L D 78 L ABG HCO3 12 L 11 L 16 L ABG O2 Saturation 100 H 96 91 ABG Base Excess -12 L -14 L -12 L VBG pH VBG pCO2 VBG pO2 VBG Base Excess 11/04/24 11/04/24 11/04/24 00:00 04:29 05:15 ABG pH 7.50 H D ABG pCO2 30 L D ABG pO2 109 H D ABG HCO3 23 ABG O2 Saturation 100 H ABG Base Excess 1 VBG pH 7.43 7.52 VBG pCO2 35 L 27 L VBG pO2 43 57 VBG Base Excess -1 0 11/05/24 11/06/24 11/06/24 04:49 03:40 21:45 ABG pH 7.48 H 7.41 ABG pCO2 35 43 ABG pO2 74 L D 108 D ABG HCO3 26 27 H ABG O2 Saturation 96 99 H ABG Base Excess 3 2 VBG pH 7.49 VBG pCO2 39 D VBG pO2 39 VBG Base Excess 6 H 11/07/24 11/08/24 11/09/24 05:59 04:19 04:11 ABG pH 7.49 H 7.48 H 7.44 ABG pCO2 39 38 40 ABG pO2 71 L D 77 L 63 L ABG HCO3 29 H 29 H 27 H ABG O2 Saturation 96 97 93 ABG Base Excess 6 H 5 H 3 VBG pH VBG pCO2 VBG pO2 VBG Base Excess 11/10/24 07:02 ABG pH 7.45 ABG pCO2 42 ABG pO2 83 D ABG HCO3 29 H ABG O2 Saturation 98 ABG Base Excess 5 H VBG pH VBG pCO2 VBG pO2 VBG Base Excess Quality Measures Quality Measures sepsis Current suspected stage: ruled out Possible source: pulmonary Blood cultures ordered: completed in ED Antibiotic ordered: Yes Assessment & Plan Assessment Current Active Medications: Generic Name Dose Route Start Last Admin Trade Name Freq PRN Reason Stop Dose Admin Acetaminophen 325 mg 11/05/24 09:48 Acetaminophen 325 Mg Tablet PO 12/03/24 15:31 Q6H PRN Fever >101.5 Albuterol/Ipratropium 3 ml 11/13/24 10:30 Albuterol/Ipratropium (Duoneb) Rt Anastacia 3 Ml Nebu INH 12/11/24 10:59 Q4HRRT PRN wheezing Aspirin 81 mg 11/14/24 09:00 Aspirin 81 Mg Chew PO 12/14/24 08:59 QDAY BETO Atorvastatin Calcium 40 mg 11/13/24 21:00 Atorvastatin Calcium 20 Mg Tablet PO 12/13/24 20:59 HS BETO Dextrose 25 ml 11/11/24 16:45 Dextrose 50%-Water Inj 50 Ml Syringe IV 12/11/24 16:44 Q15MIN PRN BG 50-70 responsive npo pt Dextrose 50 ml 11/11/24 16:45 Dextrose 50%-Water Inj 50 Ml Syringe IV 12/11/24 16:44 Q15MIN PRN BG <50 OR BG <70 & pt unresponsive Folic Acid 1 mg 11/14/24 09:00 Folic Acid 1 Mg Tablet PO 12/14/24 08:59 QDAY BETO Glucagon 1 mg 11/11/24 16:45 Glucagon Inj 1 Mg Vial IM Q15MIN PRN BG <70, and no IV access Ferric Sodium Gluconate 125 mg 110 mls @ 110 mls/hr 11/08/24 17:15 11/13/24 13:25 / Sodium Chloride IV 12/08/24 17:14 110 mls/hr QDAY BETO Administration Insulin Human Lispro 0 unit 11/12/24 17:15 11/13/24 13:16 Insulin Lispro (Admelog) 1 Unit/0.01 Ml Unit SC 12/12/24 17:14 Not Given ACHS BETO Protocol Lactulose 20 gm 11/13/24 14:00 11/13/24 13:27 Lactulose Syrup 20 Gm/30 Ml Udc PO 12/13/24 13:59 Not Given TID BETO Protocol Metoprolol Succinate 25 mg 11/14/24 09:00 Metoprolol Succinate Xl 25 Mg Tabcr NG 12/14/24 08:59 QDAY BETO Midodrine 5 mg 11/13/24 14:00 11/13/24 13:26 Midodrine 5 Mg Tablet PO 12/13/24 13:59 5 mg TID BETO Administration Multivitamins/Minerals 15 ml 11/14/24 09:00 Multivitamin 15 Ml Udc PO 12/14/24 08:59 QDAY BETO Ondansetron HCl 4 mg 11/03/24 15:32 Ondansetron Inj 2 Mg/Ml Inj 2 Ml IVP 12/03/24 15:31 Q6H PRN NAUSEA OR VOMITING Protocol Pantoprazole Sodium 40 mg 11/05/24 21:00 11/13/24 09:53 Pantoprazole Inj 40 Mg Vial IVP 12/05/24 20:59 40 mg BID BETO Administration Rifaximin 550 mg 11/08/24 13:45 11/13/24 09:53 Rifaximin 550 Mg Tablet PO 11/15/24 13:44 550 mg BID BETO Administration Sennosides 1 tab 11/04/24 09:00 11/13/24 09:53 Senna Tablet PO 12/04/24 08:59 1 tab QDAY BETO Administration Protocol Sodium Chloride 3 ml 11/03/24 10:58 Sodium Chloride Rt Anastacia 0.9% 3 Ml Nebu INH 12/03/24 10:57 PRN PRN SOLN Thiamine HCl 100 mg 11/14/24 09:00 Thiamine 100 Mg Tablet PO 12/14/24 08:59 QDAY BETO Plan Summary: Mr. Trejo is a 49-year-old male with past medical history of hypertension and personal history of esophageal cancer status post-treatment in remission who presented to [facility] emergency department on 11/03/2024 with a chief complaint of weakness and shortness of breath. #Acute encephalopathy #Questionable Warnicke encephalopathy #Generalized weakness #Demyelinating disease pattern on MRI - Patient is cachectic with temporal wasting, and BMI of 18.3 kg/m. Patient has been off of sedation for 4 days - Consider hepatic/metabolic encephalopathy in the setting of alcohol use, vs infectious, vs alcohol withdrawal, vs vs anoxic (distributive/septic shock vs hypovolemic). - Weakness Ddx: alcohol-related polyneuropathy vs inflammatory myopathy vs deconditioning vs nutritional/vit deficiency. - Imaging showed irregular liver contour; Ammonia was 78 on presentation. has LGIB. - MRI of the head showed punctate foci with increased signal in the frontal parietal white matter, demyelinating disease pattern possible. Low likelihood of esophageal cancer metastasis. - Neurology on board. Plan: - Thiamine, folate and multivitamin - Lactulose 20 GM p.o. 3 times daily, goal of 3-4 BM per day - Rifxamin 550mg BID - Pending EEG - Neurology consulted, pending acetylcholine receptor antibody (myasthenia gravis) #Pneumonia #Leukocytosis #Acute phase reaction to stress dose steroids Differential diagnosis: - Consider aspiration pneumonia in the presence of dysphagia due to history of esophageal cancer, vs hospital-acquired pneumonia vs atelectasis. Diagnostic workup: - Chest x-ray significant for bibasilar infiltrates - Initial ABG shows pH 7.35, pCO2 21, pO2 193, bicarb 12, patient on high flow nasal cannula in ED, significantly tachypneic, increased work of breathing, respiratory rate in 40s, accessory muscle use noted. - ABG 11/11/2024 pH 7.45, CO2 42, PaO2 83, HCO3 29 - Patient denies any sick contacts, although CTA shows significant right-sided pneumonia and left base pneumonia - Bedside flu, COVID negative, cocci IgM negative, MRSA nasal screen negative, Blood cultures negative -Thick excessive secretions and cough improved, CTAB on PE 11/13 -WBC 21.8 morning of 11/12/2024 Plan: - Completed treatment with Zosyn and ceftriaxone - Chest PT - DuoNebs Q4 PRN, albuterol/ipratropium Q4 PRN, Mucinex PRN - Follow CBC #Suspicion of Takotsubo cardiomyopathy #Possible LVOT obstruection / ABBI - Echo 11/03/2024 showed ejection fraction 35 to 40%, decreased apical motion - TTE: moderate Lt ventricular systolic dysfunction, severe MR, some LVOT obstruction - Appears intravascularly dry evidenced by hypernatremia and lack of edema on physical exam Plan: - Continue on metoprolol succinate 25 mg daily - Continue midodrine 5 mg p.o. 3 times daily - Cardiology consulted, appreciate recommendations - pending TTE by cardiology to re-evaluate LVEF, LVOT obstruction, ABBI #NSTEMI of undetermined cause, resolved - Trop i peak 4.326, downtrended subsequntly. 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 Liver ultrasound shows ascites. - AST 66 ALT 73 11/11/2024, has been downtrending; transaminitis likely 2/2 hypoxic liver injury - MELD score of 7, 1.9% estimated 3-month mortality - Child-Pug Score: 8 - EGD 11/07/2024 showed grade 1 esophageal varices, 2+ esophageal varices not large enough for band ligation Plan: - Continue folate and thiamine - Continue lactulose 20 GM p.o. 3 times daily, titrate to 4-5 bowel movements - Continue octreotide gtt for 5 days started on the 11/07/2024 ends in 11/12/2024 - Continue Protonix twice daily - Hb daily monitor #Esophageal cancer, in remission As reported by the patient. Differential diagnosis: Patient is status post esophagectomy Diagnostic workup: - Patient reported self history of esophageal cancer reports completed treatment heart disease in remission - History of esophagectomy, there is suspicion of underlying dysphagia Follow-up: - Passed swallow evaluation AM 11/13 - Continue tube feeds #Large right inguinal hernia #Dilated bowel loops Differential diagnosis: Incarcerated hernia. Diagnostic workup: - On physical exam hernia is reducible, low suspicion of incarceration - CTA abdomen pelvis shows large right inguinal hernia noted on imaging as well, no radiological signs of incarceration Treatment: - General Surgery consulted, no surgical intervention needed in this admission, can follow up o/p #Normocytic normochromic anemia versus iron deficiency anemia Differential diagnosis: Nutritional deficiency, in the setting of sepsis, GI bleed, low suspicion of hemolysis Diagnostic workup: - Hemoglobin 8.1 on presentation - Hemoglobin 8.2 hematocrit 26.5 11/13/2024 - Iron level 19 on 11/07/2024 Treatment: - First dose ferric Sod Glut 125 mg received 11/08/2024, 5-day course, will continue on transfer to telemetry med - Follow CBC in a.m. - Continue folic acid and multivitamin #Hypernatremia, resolved Differential diagnosis: Hypovolemia - Was given free water flushes Diagnostic workup: - Na 152 11/11/2024 - Pt free water deficit calculated to be 2.64L - Na 145 11/13/2024 -completion of treatment Plan: - Correction with the goal of achieving normal range natremia in 72h with IV [id number] - recommend drinking free water as much as possible. - Continue to monitor urine output - Follow sodium in a.m. #Alcohol withdrawal (resolved) # Distributive shock, secondary to sepsis, septic shock secondary to aspiration pneumonia, resolved #Acute hypoxic respiratory failure secondary to pneumonia, respiratory failure in setting of shock (resolved) #Status post extubation 11/10/2024 #Hypokalemia (Resolved) #Lactic acidosis, (Resolved) #High anion gap metabolic acidosis, (Resolved) #Thrombocytosis, (Resolved) DVT prophylaxis: SCDs GI prophylaxis: IV Protonix twice a day Diet: NPO Tubes: Lines: Peripheral IV, right IJ triple-lumen Code status: Full code Dispo: Patient awake and following commands. On NC 3L O2. Lungs clearing. Tele Monitoring. The patient was seen and discussed with my attending physician Dr Iraheta and my senior residents Dr. Lynn Pelayo DO PGY-1. Attending Provider Attestation/Addendum I attest that I was physically present for the evaluation, physical examination, lab and imaging review of the patient with the residents. I discussed the case with the residents and agree with the findings and plans of care as documented above. At bedside today, patient appears comfortable, denies any new complaints. Saturating well on room air. Has been able to tolerate diet. We will discontinue IV fluid, encouraged patient to drink free water. Sodium level has improved to 145. Potassium noted to be 3.1 this morning, repleted accordingly. WBC count noted to be 21.8 this morning but patient had received stress dose of steroid while in ICU. We will continue with lactulose and rifaximin with goal of 3-4 bowel movement daily. EEG. There was also concern for demyelinating disease, awaiting anti-SCL cholinergic receptor antibody. Neurology following closely, appreciate recommendations. Patient has already completed his course of IV antibiotics for pneumonia. There is suspicion for Takotsubo cardiomyopathy, cardiology following closely, plan for cardiac catheterization on Saturday/Saturday. Bryson Iraheta MD
--- NOTE | 2024-11-13 20:58 | ESPR_ITS ---
Documentation for date of: 11/13/24 Subjective Subjective Interval history: Patient evaluated Hemoglobin hematocrit 8.2 and 25.9 relatively stable Patient will get a limited TTE as well as left and right heart catheterization probably Saturday or Saturday Exam Vital Signs Temp Pulse Resp BP Pulse Ox O2 Del Method O2 Flow Rate 98.6 F 99 22 H 123/63 93 L Room Air 3 11/13/24 20:00 11/13/24 20:00 11/13/24 20:00 11/13/24 20:00 11/13/24 20:00 11/13/24 20:00 11/13/24 08:00 FiO2 96 11/12/24 19:13 Objective Labs 11/13/24 02:36 11/13/24 12:15 Labs: Laboratory Results - last 24 hr 11/12/24 11/13/24 11/13/24 22:20 02:36 12:15 WBC 21.8 H D RBC 2.63 L Hgb 8.2 L Hct 25.9 L MCV 99 MCH 31.2 MCHC 31.7 RDW Std Deviation 69.5 H Plt Count 309 Neut % (Auto) 86 H Lymph % (Auto) 7 L [place] % (Auto) 4 Eos % (Auto) 2 Baso % (Auto) 0 Neut # (Auto) 18.7 H Lymph # (Auto) 1.5 [place] # (Auto) 0.9 H Eos # (Auto) 0.5 Baso # (Auto) 0.1 Immature Gran # (Auto) 0.21 H Absolute Nucleated RBC 0.05 H Immature Gran % 1 H Nucleated RBC % 0 Sodium 147 H 146 H 145 Potassium 3.1 L D Chloride 110 H Carbon Dioxide 28.3 Anion Gap 8 BUN 11 Creatinine 0.7 Estim Creat Clear Calc 90.8 eGFR > 60 BUN/Creatinine Ratio 16 Glucose 132 H Calculated Osmolality 291 Calcium 8.0 L Corrected Calcium 8.7 Phosphorus 2.7 Magnesium 2.1 Total Bilirubin 0.5 AST 63 H ALT 62 H Alkaline Phosphatase 121 H Total Protein 6.0 Albumin 3.1 L Globulin 2.9 Albumin/Globulin Ratio 1.1 L Impressions Impression: 1+ esophageal varices not large enough for band ligation Hypertensive portal gastropathy Relatively stable hemoglobin hematocrit Continue current management ABG Interpretation ABG results: 11/03/24 11/03/24 11/03/24 11:20 14:11 17:06 ABG pH 7.35 7.34 L 7.20 L D ABG pCO2 21 L 20 L 45 D ABG pO2 193 H 82 L D 78 L ABG HCO3 12 L 11 L 16 L ABG O2 Saturation 100 H 96 91 ABG Base Excess -12 L -14 L -12 L VBG pH VBG pCO2 VBG pO2 VBG Base Excess 11/04/24 11/04/24 11/04/24 00:00 04:29 05:15 ABG pH 7.50 H D ABG pCO2 30 L D ABG pO2 109 H D ABG HCO3 23 ABG O2 Saturation 100 H ABG Base Excess 1 VBG pH 7.43 7.52 VBG pCO2 35 L 27 L VBG pO2 43 57 VBG Base Excess -1 0 11/05/24 11/06/24 11/06/24 04:49 03:40 21:45 ABG pH 7.48 H 7.41 ABG pCO2 35 43 ABG pO2 74 L D 108 D ABG HCO3 26 27 H ABG O2 Saturation 96 99 H ABG Base Excess 3 2 VBG pH 7.49 VBG pCO2 39 D VBG pO2 39 VBG Base Excess 6 H 11/07/24 11/08/24 11/09/24 05:59 04:19 04:11 ABG pH 7.49 H 7.48 H 7.44 ABG pCO2 39 38 40 ABG pO2 71 L D 77 L 63 L ABG HCO3 29 H 29 H 27 H ABG O2 Saturation 96 97 93 ABG Base Excess 6 H 5 H 3 VBG pH VBG pCO2 VBG pO2 VBG Base Excess 11/10/24 07:02 ABG pH 7.45 ABG pCO2 42 ABG pO2 83 D ABG HCO3 29 H ABG O2 Saturation 98 ABG Base Excess 5 H VBG pH VBG pCO2 VBG pO2 VBG Base Excess Assessment & Plan A&P Narrative 49 years old male with acute respiratory failure bilateral pneumonia acute coronary syndrome mechanically ventilated with previous history of Esophageal carcinoma status posttreatment and supposedly in remission Difficulty placing the NGT only OGT in Plan Will attempt to place a 14 [place] NGT either via nasogastric approach or oral approach Will follow the patient # Transaminitis most likely due to hypoxic hepatitis Thank you very much for the opportunity to participate in the care of this patient Time Spent With Patient Time: Total time spent is greater than 50% in coordination of care (as documented) at patient's floor/unit and/or counseling patient:
[2024-11-13] MEDS: LACTULOSE SYRUP 20 GM/30 ML UDC PO (21:15)
[2024-11-13] MEDS: ATORVASTATIN CALCIUM 20 MG TABLET 40 MG PO (21:17)
[2024-11-14] VITALS (12 sets, daily range): BP systolic 103–129; BP diastolic 61–77; PULSE 83–99; RESP 14–22; TEMP 36.1–36.9; O2SAT 93–97; BMI 21.4
[2024-11-14] MEDS: MIDODRINE 5 MG TABLET PO (05:27)
[2024-11-14 05:52] LABS: Basophils # (Auto) 0.1 Thou/mm3 (0.0-0.2); Basophils % (Auto) 1 % (0-2.5); Eosinophils # (Auto) 0.4 Thou/mm3 (0.0-0.5); Eosinophils % (Auto) 2 % (0-10); Hematocrit 26.4 % (41.0-53.0); Immature Granulocytes Auto 0.16 Thou/mm3 (0.00-0.00); Lymphocytes # (Auto) 1.5 Thou/mm3 (1.0-4.8); Lymphocytes % (Auto) 9 % (10-50); Mean Corpuscular HGB Conc 29.9 g/dl (31.0-37.0); Mean Corpuscular Hemoglobin 30.7 pg (25.0-35.0); Mean Corpuscular Volume 103 fL (80-100); Monocytes # (Auto) 0.9 Thou/mm3 (0.0-0.8); Monocytes % (Auto) 5 % (0-12); Neutrophils # (Auto) 14.4 Thou/mm3 (1.8-7.7); Neutrophils % (Auto) 83 % (37-80); Nucleated Red Blood Cell # 0.03 Thou/mm3 (0.00-0.00); Nucleated Red Blood Cell % 0 /100 WBC (0); Platelet Count 297 Thou/mm3 (140-440); RDW Standard Deviation 73.1 fL (35.1-43.9); Red Blood Count 2.57 Miln/mm3 (4.50-5.90); White Blood Count 17.5 Thou/mm3 (3.8-10.6)
[2024-11-14 06:21] LABS: Hemoglobin 7.9 g/dL (13.5-16.0)
[2024-11-14 06:27] LABS: Alanine Aminotransferase 85 U/L (10-49); Albumin, Serum 3.0 gm/dL (3.5-5.0); Albumin/Globulin Ratio 1.1 (1.2-2.2); Alkaline Phosphatase 145 U/L (46-116); Anion Gap 10 (7-16); Aspartate Amino Transferase 111 U/L (0-34); BUN/Creatinine Ratio 13 Ratio (12-20); Bilirubin,Total 0.5 mg/dL (0.3-1.2); Blood Urea Nitrogen 9 mg/dL (9-23); Calcium 8.1 mg/dL (8.3-10.6); Calcium (Corrected) 8.9 mg/dL (8.5-10.1); Carbon Dioxide 26.2 mMol/L (20.0-31.0); Chloride 107 mMol/L (98-107); Creatinine (Component) 0.7 mg/dL (0.6-1.3); Estimated Creatinine Clearance 90.8 mL/min (>60); Globulin 2.8 gm/dL (2.3-3.5); Glucose 112 mg/dL (74-106); Magnesium 1.6 mg/dL (1.6-2.6); Osmolality,Calculated 284 (275-295); Phosphorous 2.5 mg/dL (2.4-5.1); Potassium 3.2 mMol/L (3.4-5.1); Sodium 143 mMol/L (136-145); Total Protein 5.8 gm/dL (5.7-8.2); eGFR > 60 See Note
[2024-11-14] MEDS: MULTIVITAMIN 15 ML UDC PO (10:05)
[2024-11-14] MEDS: FOLIC ACID 1 MG TABLET PO (10:05)
[2024-11-14] MEDS: THIAMINE 100 MG TABLET PO (10:06)
[2024-11-14] MEDS: ASPIRIN 81 MG CHEW PO (10:06)
[2024-11-14] MEDS: PANTOPRAZOLE 40 MG TABLET PO ×2 (10:06→21:17)
[2024-11-14] MEDS: FERRIC SOD GLUC INJ 125 MG in SODIUM CHLORIDE 0.9% 100 ML 110 MG IV (10:48)
[2024-11-14] MEDS: POTASSIUM CHLORIDE 10% 20 MEQ/15 ML UDC 40 MEQ PO ×2 (11:05→13:24)
--- NOTE | 2024-11-14 11:29 | PD.RESPRO ---
Documentation for date of: 11/14/24 Subjective Subjective Interval history: The patient was seen and examined at the bedside this morning. He reported being able to eat and drink. Vitals stable with HR in 80-95. -Patient has been extubated and on oxygen via Ventimask. Tachypnea and cough has significantly improved that was causing reduced ability to clear his secretions. -On examination pulm crackles has been improving - Na - 143 and lasix held. - Stopped pressor support. Avoid inotropic's pressor support. -Limited TTE - Normal LV size and function. Mild LVH. Estimated EF at 60-65 %. Sigmoid septum noted. Grade 1 diastolic dysfunction. Normal RV size and function. RVSP mild to moderately elevated around 35 to 40 mmHg. Mild to moderate eccentric MR. Improved ABBI and peak resting gradient is around 40 mmHg much improved than on admission which was around 80-100 mmHg. Moderate aortic valve sclerosis without any clear evidence of stenosis. Mild TR Mildly dilated LA and IVC not well-visualized. - Possibly, will plan left and right heart cardiac catheterization on coming Saturday or Saturday prior to discharge when hemodynamically stable, but will be determined after limited echo results. -Mg and K level 1.6 and 3.2 respectively, repleted with 4g MgSO4 and 80 Meq KCL -Continue with aspirin 81 Mg daily, atorvastatin 40 Mg daily at night, ferric gluconate 125 Mg IV daily, folic acid 1 mg daily, metoprolol succinate 25 Mg daily, midodrine 5 Mg 3 times daily, and thiamine 100 Mg daily. Exam Vital Signs Temp Pulse Resp BP Pulse Ox O2 Del Method O2 Flow Rate 97.8 F 89 19 129/75 94 L Room Air 3 11/14/24 08:00 11/14/24 10:06 11/14/24 08:00 11/14/24 10:11/14/24 08:00 11/14/24 08:00 11/13/24 18:00 FiO2 96 11/12/24 19:13 Narrative Exam General: No acute distress, on oxy mask, responding well to commands, interacting with soft voice HEENT: Moist mucous membranes, oropharynx clear Neck: Supple, No masses, No JVD CVS: S1, S2 regular rate and rhythm, No murmurs, rubs or gallops Lungs: Mild wheezing throughout the lung field, improving rhonchi appreciated throughout the lung field, mild bibasilar crackles appreciated Abd: Soft, NT/ND, +BS, hepatomegaly appreciated Ext: No edema, warm and well perfused Skin: No rash Psych: Unable to obtain Objective Labs 11/15/24 04:46 11/15/24 04:46 Labs: Laboratory Results - last 24 hr 11/13/24 11/14/24 12:15 05:25 WBC 17.5 H RBC 2.57 L Hgb 7.9 L Hct 26.4 L MCV 103 H MCH 30.7 MCHC 29.9 L RDW Std Deviation 73.1 H Plt Count 297 Neut % (Auto) 83 H Lymph % (Auto) 9 L [place] % (Auto) 5 Eos % (Auto) 2 Baso % (Auto) 1 Neut # (Auto) 14.4 H Lymph # (Auto) 1.5 [place] # (Auto) 0.9 H Eos # (Auto) 0.4 Baso # (Auto) 0.1 Immature Gran # (Auto) 0.16 H Absolute Nucleated RBC 0.03 H Immature Gran % 1 H Nucleated RBC % 0 Sodium 145 143 Potassium 3.2 L Chloride 107 Carbon Dioxide 26.2 Anion Gap 10 BUN 9 Creatinine 0.7 Estim Creat Clear Calc 90.8 eGFR > 60 BUN/Creatinine Ratio 13 Glucose 112 H Calculated Osmolality 284 Calcium 8.1 L Corrected Calcium 8.9 Phosphorus 2.5 Magnesium 1.6 Total Bilirubin 0.5 AST 111 H ALT 85 H Alkaline Phosphatase 145 H D Total Protein 5.8 Albumin 3.0 L Globulin 2.8 Albumin/Globulin Ratio 1.1 L ABG Interpretation ABG results: 11/03/24 11/03/24 11/03/24 11:20 14:11 17:06 ABG pH 7.35 7.34 L 7.20 L D ABG pCO2 21 L 20 L 45 D ABG pO2 193 H 82 L D 78 L ABG HCO3 12 L 11 L 16 L ABG O2 Saturation 100 H 96 91 ABG Base Excess -12 L -14 L -12 L VBG pH VBG pCO2 VBG pO2 VBG Base Excess 11/04/24 11/04/24 11/04/24 00:00 04:29 05:15 ABG pH 7.50 H D ABG pCO2 30 L D ABG pO2 109 H D ABG HCO3 23 ABG O2 Saturation 100 H ABG Base Excess 1 VBG pH 7.43 7.52 VBG pCO2 35 L 27 L VBG pO2 43 57 VBG Base Excess -1 0 11/05/24 11/06/24 11/06/24 04:49 03:40 21:45 ABG pH 7.48 H 7.41 ABG pCO2 35 43 ABG pO2 74 L D 108 D ABG HCO3 26 27 H ABG O2 Saturation 96 99 H ABG Base Excess 3 2 VBG pH 7.49 VBG pCO2 39 D VBG pO2 39 VBG Base Excess 6 H 11/07/24 11/08/24 11/09/24 05:59 04:19 04:11 ABG pH 7.49 H 7.48 H 7.44 ABG pCO2 39 38 40 ABG pO2 71 L D 77 L 63 L ABG HCO3 29 H 29 H 27 H ABG O2 Saturation 96 97 93 ABG Base Excess 6 H 5 H 3 VBG pH VBG pCO2 VBG pO2 VBG Base Excess 11/10/24 07:02 ABG pH 7.45 ABG pCO2 42 ABG pO2 83 D ABG HCO3 29 H ABG O2 Saturation 98 ABG Base Excess 5 H VBG pH VBG pCO2 VBG pO2 VBG Base Excess Quality Measures Quality Measures sepsis Current suspected stage: ruled out Possible source: pulmonary Blood cultures ordered: completed in ED Antibiotic ordered: Yes Assessment & Plan Assessment Current Active Medications: Generic Name Dose Route Start Last Admin Trade Name Freq PRN Reason Stop Dose Admin Acetaminophen 325 mg 11/05/24 09:48 Acetaminophen 325 Mg Tablet PO 12/03/24 15:31 Q6H PRN Fever >101.5 Albuterol/Ipratropium 3 ml 11/13/24 10:30 Albuterol/Ipratropium (Duoneb) Rt Anastacia 3 Ml Nebu INH 12/11/24 10:59 Q4HRRT PRN wheezing Aspirin 81 mg 11/14/24 09:00 11/14/24 10:06 Aspirin 81 Mg Chew PO 12/14/24 08:59 81 mg QDAY BETO Administration Atorvastatin Calcium 40 mg 11/13/24 21:00 11/13/24 21:17 Atorvastatin Calcium 20 Mg Tablet PO 12/13/24 20:59 40 mg HS BETO Administration Carvedilol 3.125 mg 11/14/24 11:00 Carvedilol 3.125 Mg Tablet PO 12/14/24 10:59 BIDWM BETO Dextrose 25 ml 11/11/24 16:45 Dextrose 50%-Water Inj 50 Ml Syringe IV 12/11/24 16:44 Q15MIN PRN BG 50-70 responsive npo pt Dextrose 50 ml 11/11/24 16:45 Dextrose 50%-Water Inj 50 Ml Syringe IV 12/11/24 16:44 Q15MIN PRN BG <50 OR BG <70 & pt unresponsive Folic Acid 1 mg 11/14/24 09:00 11/14/24 10:05 Folic Acid 1 Mg Tablet PO 12/14/24 08:59 1 mg QDAY BETO Administration Glucagon 1 mg 11/11/24 16:45 Glucagon Inj 1 Mg Vial IM Q15MIN PRN BG <70, and no IV access Ferric Sodium Gluconate 125 mg 110 mls @ 110 mls/hr 11/08/24 17:15 11/14/24 10:48 / Sodium Chloride IV 12/08/24 17:14 110 mls/hr QDAY BETO Administration Magnesium Sulfate 4 gm in 50 mls @ 12.5 mls/hr 11/14/24 10:28 Magnesium Sulfate Ivpb IV 11/14/24 14:27 X1 ONE Insulin Human Lispro 0 unit 11/12/24 17:15 11/14/24 07:36 Insulin Lispro (Admelog) 1 Unit/0.01 Ml Unit SC 12/12/24 17:14 Not Given ACHS [facility] Protocol Lactulose 20 gm 11/13/24 14:00 11/14/24 05:33 Lactulose Syrup 20 Gm/30 Ml Udc PO 12/13/24 13:59 Not Given TID [facility] Protocol Midodrine 5 mg 11/14/24 08:35 Midodrine 5 Mg Tablet PO 12/13/24 13:59 TID PRN SBP below 100 Multivitamins/Minerals 15 ml 11/14/24 09:00 11/14/24 10:05 Multivitamin 15 Ml Udc PO 12/14/24 08:59 15 ml QDAY BETO Administration Ondansetron HCl 4 mg 11/03/24 15:32 Ondansetron Inj 2 Mg/Ml Inj 2 Ml IVP 12/03/24 15:31 Q6H PRN NAUSEA OR VOMITING Protocol Pantoprazole Sodium 40 mg 11/14/24 09:00 11/14/24 10:06 Pantoprazole 40 Mg Tablet PO 12/14/24 08:59 40 mg BID BETO Administration Rifaximin 550 mg 11/08/24 13:45 11/14/24 10:06 Rifaximin 550 Mg Tablet PO 11/15/24 13:44 550 mg BID BETO Administration Sennosides 1 tab 11/04/24 09:00 11/14/24 10:07 Senna Tablet PO 12/04/24 08:59 Not Given QDAY BETO Protocol Sodium Chloride 3 ml 11/03/24 10:58 Sodium Chloride Rt Anastacia 0.9% 3 Ml Nebu INH 12/03/24 10:57 PRN PRN SOLN Thiamine HCl 100 mg 11/14/24 09:00 11/14/24 10:06 Thiamine 100 Mg Tablet PO 12/14/24 08:59 100 mg QDAY BEOT Administration Plan The patient is a 49-year-old male with significant past medical history of esophageal cancer currently on remission, and hypertension presented to ED with chief complaint of acute SOB and generalized weakness is currently being treated for septic shock, Takotsubo syndrome complicated by sigmoid interventricular septum further leading to tachycardia and NSTEMI type II. #Acute encephalopathy, improved Likely multifactorial 2/2 #Alcohold withdrawal, and #Demylinating disease pattern 2/2 #Alcohol abuse disorder Patient presented with generalized weakness, later required intubation in the setting of aspiration pneumonia and septic shock. However, the patient has not been tolerating spontaneous breathing trials. BL UE weakness was there so MRI brain was done that revealed punctate foci increased signal in the frontal parietal white matter, demyelinating disease pattern. -Management deferred to primary hospitalist team #Abnormal EKG, likely 2/2 #Takotsubo syndrome vs LAD, complicated by #Sigmoid interventricular septum, possibly leading to #Moderate to severe eccentric MR, leading to #Moderate to severe PAH #HFrEF with apical akinesis EKG was significant for sinus tachycardia with deep symmetric T wave inversion in lateral leads V4 to V6, and inverted T waves in lead I and aVL. TTE on 11/03/2024 revealed: Normal LV size and moderate LV systolic dysfunction with an EF of 35 to 40%. Apical akinesis with hypokinesis of the mid to apical anterior, anterolateral and apical septal segments indicating possible Takotsubo syndrome versus LAD involvement. RV Normal in size and function. 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 Severe LA dilatation. Trace AI Moderate TR with mild RA dilatation. No Pericardial Effusion. IVC not well-visualized. Repeat limited TTE on 11/04/2024 revealed: Normal LV size and mildly decreased LV systolic function with an EF of around 40 to 45%. EF improved from yesterday. Hypokinesis of the mid to apical anterior and anterolateral and apical segments appear improved. Apical akinesis still noted. Sigmoid septum noted with LVOT obstruction leading to moderate to severe eccentric MR directed anteriorly. Gradient measurement not accurate due to contamination with MR jet. Normal RV size and function. No pericardial effusion -As the patient has sigmoid interventricular septum, and recent stressor likely leading to Takotsubo syndrome, leading to tachycardia of the base of left ventricle, which is further pulling in mitral valve leading to MR resulting with moderate to severe PAH. -Volume status is critical, to maintain euvolemia, as hypovolemia will cause decrease venous return, resulting as compensatory tachycardia of upper left ventricle leading to further MR, with increased pulmonary arterial pressure and shunt reversal. On the other hand, if there is hypervolemia leading to increased venous return, will complicate MR and increased pulmonary artery pressure. Mg and K 1.6 and 3.2 respectively, repleted with 4g MgSO4 and KCL 80 Meq -Continue on metoprolol XL 25 daily -CXR done on 11/10/2024 revealed mild improvement in pulmonary vascular congestions compared to CXR done on 11/09/2024. -Patient has been extubated and on oxygen via Ventimask. Tachypnea and cough has significantly improved that was causing reduced ability to clear his secretions. -On examination pulm crackles has been improving, and his urine output was around 800cc after Lasix IV once 2 days ago. - Na - 156 and lasix held. now on D5 1/2 NS - Stopped pressor support. Avoid inotropic's pressor support. -Continue with aspirin 81 Mg daily, atorvastatin 40 Mg daily at night, ferric gluconate 125 Mg IV daily, folic acid 1 mg daily, metoprolol succinate 25 Mg daily, midodrine 5 Mg 3 times daily, and thiamine 100 Mg daily. -Ordered limited TTE for reevaluation of LVEF- 11/14/2024- Limited TTE - Normal LV size and function. Mild LVH. Estimated EF at 60-65 %. Sigmoid septum noted. Grade 1 diastolic dysfunction. Normal RV size and function. RVSP mild to moderately elevated around 35 to 40 mmHg. Mild to moderate eccentric MR. Improved ABBI and peak resting gradient is around 40 mmHg much improved than on admission which was around 80-100 mmHg. Moderate aortic valve sclerosis without any clear evidence of stenosis. Mild TR Mildly dilated LA and IVC not well-visualized. - Will plan left and right heart cardiac catheterization on coming Saturday or Saturday prior to discharge when hemodynamically stable, but will be decided after limited echo results. #Anemia Likely multifactorial in the setting of nutritional deficiency along with iron, vitamin B12 and folic acid deficiency MCV is elevated at 99. Given his severe alcohol abuse patient is probably B12 as well as folate deficient. Patient would benefit from replacement of iron and B12 and folate which will eventually help anemia long-term and improve his tachycardia which would help with his LVOT obstruction and ABBI along with improvement of sepsis and alcohol withdrawal syndrome - Recommended IV iron infusion, vitamin B12 and folic acid #Cirrhosis #Dilated esophageal varices #Hypertensive portal gastropathy 2/2 alcohol abuse disorder -GI Dr. Louis recommended octreotide drip for 5 days. #Acute hypoxic respiratory failure, improving #Septic shock, improved #Aspiration pneumonia, improving #Severe lactic acidosis, imporved Currently, the patient is intubated but saturating on 21% FiO2. Initially, the patient presented with blood pressure of 81/51, pulse 127, RR 40, and white count 33.8 meeting 3/4 SIRS criteria, chest x-ray significant for right sided middle and lower lobe pneumonia, CT chest abdomen and pelvis revealing right middle and lower lobe pneumonia, and left lower lobe pneumonia, and lactic acid level of 16, with endorgan failure as acute hypoxic respiratory failure requiring intubation. Patient received 2.5 L of bolus IV fluid Unable to wean off of mechanical ventilation and was following commands, but BL UE weakness was there so MRI brain was done that revealed: Punctate foci increased signal in the frontal parietal white matter, demyelinating disease pattern - Continue with aggressive IV antibiotics - Blood and urine culture sent, negative so far. - IgM for coccidiomycosis, negative #NSTEMI type II, improved Likely multifactorial secondary to septic shock, Takotsubo syndrome, sigmoid interventricular septum leading to MR. No significant risk factor for STEMI, except for hypertension, as patient denies smoking or illicit drug use, and lipid panel was significant for LDL 39 and HDL 53. EKG unremarkable for STEMI Pt denied any chest pain - Heparin drip stopped - Possibly, Left and right heart cardiac catheterization on coming Saturday or Saturday, but will be decided after limited echo results. - Aspirin 81 Mg daily - Atorvastatin 40 Mg daily at night Thank you for cardiology consultation. We really appreciate for the opportunity to participate in this patient care. Cardiology team will continue to follow-up on this patient. The patient's management plan was discussed with my attending physician MD Ventura Montes MD, PGY3 Attending Provider Attestation/Addendum I have personally seen and examined the patient separately on the above date of service and discussed the plan of care with the resident. I reviewed the resident Dr. Ventura Myers consultation progress note and agree with the resident findings and plan in the note above and have also edited the documentation to reflect my findings and plan. Colin Brandt M.D. Interventional Cardiology
[2024-11-14] MEDS: Magnesium Sulfate 4 GM Ivpb 4 GM/50 ML BAG IV (12:10)
--- NOTE | 2024-11-14 15:48 | ESPR_ITS ---
Documentation for date of: 11/14/24 Subjective Subjective Interval history: Patient was seen and examined at bedside. No acute events took place overnight. Patient is off oxymask, and satting 99% on NC O2 3L. Patient is sitting comfortably in the bed, tolerates intake without nausea/vomit. Patient speaks to this medical technical writer at ease and follows directions. He does not recall his days in the ICU, nor does he recall events leading up to his hospitalization. Pt has been receiving physical therapy and weakness has markedly improved. Denies dyspnea, tachypnea, wheezing, or chest pain. Exam Vital Signs Temp Pulse Resp BP Pulse Ox O2 Del Method O2 Flow Rate 98.5 F 99 20 118/77 96 Room Air 3 11/14/24 12:00 11/14/24 12:10 11/14/24 12:00 11/14/24 12:10 11/14/24 12:00 11/14/24 12:00 11/13/24 18:00 FiO2 96 11/12/24 19:13 Narrative Exam General: Ill-appearing man, lethargic, cachectic, temporal wasting. Neurologic: GCS 13, following commands. HEENT: Normocephalic, atraumatic, mucous membranes dry. Pupils reactive to light. Heart: RRR, systolic murmur at the mitral listening post left fifth intercostal space sternal border. Lungs: Pectus excavatum, clear to auscultation bilaterally Abdomen: Right sided reducible inguinal hernia. Right lower quadrant bruise approximately 5 cm long at the site of heparin SQ inj. Extremities: 1+ pitting edema in the distal upper extremities bilaterally. No edema in the lower extremities bilaterally. 2+ radial and dorsalis pedis pulses bilaterally. Rt knee effusions. Skin: Cool. Dry. No rash. Objective Labs 11/15/24 04:46 11/15/24 04:46 Labs: Laboratory Results - last 24 hr 11/14/24 05:25 WBC 17.5 H RBC 2.57 L Hgb 7.9 L Hct 26.4 L MCV 103 H MCH 30.7 MCHC 29.9 L RDW Std Deviation 73.1 H Plt Count 297 Neut % (Auto) 83 H Lymph % (Auto) 9 L [place] % (Auto) 5 Eos % (Auto) 2 Baso % (Auto) 1 Neut # (Auto) 14.4 H Lymph # (Auto) 1.5 [place] # (Auto) 0.9 H Eos # (Auto) 0.4 Baso # (Auto) 0.1 Immature Gran # (Auto) 0.16 H Absolute Nucleated RBC 0.03 H Immature Gran % 1 H Nucleated RBC % 0 Sodium 143 Potassium 3.2 L Chloride 107 Carbon Dioxide 26.2 Anion Gap 10 BUN 9 Creatinine 0.7 Estim Creat Clear Calc 90.8 eGFR > 60 BUN/Creatinine Ratio 13 Glucose 112 H Calculated Osmolality 284 Calcium 8.1 L Corrected Calcium 8.9 Phosphorus 2.5 Magnesium 1.6 Total Bilirubin 0.5 AST 111 H ALT 85 H Alkaline Phosphatase 145 H D Total Protein 5.8 Albumin 3.0 L Globulin 2.8 Albumin/Globulin Ratio 1.1 L ABG Interpretation ABG results: 11/03/24 11/03/24 11/03/24 11:20 14:11 17:06 ABG pH 7.35 7.34 L 7.20 L D ABG pCO2 21 L 20 L 45 D ABG pO2 193 H 82 L D 78 L ABG HCO3 12 L 11 L 16 L ABG O2 Saturation 100 H 96 91 ABG Base Excess -12 L -14 L -12 L VBG pH VBG pCO2 VBG pO2 VBG Base Excess 11/04/24 11/04/24 11/04/24 00:00 04:29 05:15 ABG pH 7.50 H D ABG pCO2 30 L D ABG pO2 109 H D ABG HCO3 23 ABG O2 Saturation 100 H ABG Base Excess 1 VBG pH 7.43 7.52 VBG pCO2 35 L 27 L VBG pO2 43 57 VBG Base Excess -1 0 11/05/24 11/06/24 11/06/24 04:49 03:40 21:45 ABG pH 7.48 H 7.41 ABG pCO2 35 43 ABG pO2 74 L D 108 D ABG HCO3 26 27 H ABG O2 Saturation 96 99 H ABG Base Excess 3 2 VBG pH 7.49 VBG pCO2 39 D VBG pO2 39 VBG Base Excess 6 H 11/07/24 11/08/24 11/09/24 05:59 04:19 04:11 ABG pH 7.49 H 7.48 H 7.44 ABG pCO2 39 38 40 ABG pO2 71 L D 77 L 63 L ABG HCO3 29 H 29 H 27 H ABG O2 Saturation 96 97 93 ABG Base Excess 6 H 5 H 3 VBG pH VBG pCO2 VBG pO2 VBG Base Excess 11/10/24 07:02 ABG pH 7.45 ABG pCO2 42 ABG pO2 83 D ABG HCO3 29 H ABG O2 Saturation 98 ABG Base Excess 5 H VBG pH VBG pCO2 VBG pO2 VBG Base Excess Quality Measures Quality Measures sepsis Current suspected stage: ruled out Possible source: pulmonary Blood cultures ordered: completed in ED Antibiotic ordered: Yes Assessment & Plan Assessment Current Active Medications: Generic Name Dose Route Start Last Admin Trade Name Freq PRN Reason Stop Dose Admin Acetaminophen 325 mg 11/05/24 09:48 Acetaminophen 325 Mg Tablet PO 12/03/24 15:31 Q6H PRN Fever >101.5 Albuterol/Ipratropium 3 ml 11/13/24 10:30 Albuterol/Ipratropium (Duoneb) Rt Anastacia 3 Ml Nebu INH 12/11/24 10:59 Q4HRRT PRN wheezing Aspirin 81 mg 11/14/24 09:00 11/14/24 10:06 Aspirin 81 Mg Chew PO 12/14/24 08:59 81 mg QDAY BETO Administration Atorvastatin Calcium 40 mg 11/13/24 21:00 11/13/24 21:17 Atorvastatin Calcium 20 Mg Tablet PO 12/13/24 20:59 40 mg HS BETO Administration Carvedilol 3.125 mg 11/14/24 11:00 11/14/24 12:10 Carvedilol 3.125 Mg Tablet PO 12/14/24 10:59 3.125 mg BIDWM BETO Administration Dextrose 25 ml 11/11/24 16:45 Dextrose 50%-Water Inj 50 Ml Syringe IV 12/11/24 16:44 Q15MIN PRN BG 50-70 responsive npo pt Dextrose 50 ml 11/11/24 16:45 Dextrose 50%-Water Inj 50 Ml Syringe IV 12/11/24 16:44 Q15MIN PRN BG <50 OR BG <70 & pt unresponsive Folic Acid 1 mg 11/14/24 09:00 11/14/24 10:05 Folic Acid 1 Mg Tablet PO 12/14/24 08:59 1 mg QDAY BETO Administration Glucagon 1 mg 11/11/24 16:45 Glucagon Inj 1 Mg Vial IM Q15MIN PRN BG <70, and no IV access Ferric Sodium Gluconate 125 mg 110 mls @ 110 mls/hr 11/08/24 17:15 11/14/24 10:48 / Sodium Chloride IV 12/08/24 17:14 110 mls/hr QDAY BETO Administration Insulin Human Lispro 0 unit 11/12/24 17:15 11/14/24 12:05 Insulin Lispro (Admelog) 1 Unit/0.01 Ml Unit SC 12/12/24 17:14 Not Given ACHS BETO Protocol Lactulose 20 gm 11/13/24 14:00 11/14/24 13:26 Lactulose Syrup 20 Gm/30 Ml Udc PO 12/13/24 13:59 Not Given TID BETO Protocol Midodrine 5 mg 11/14/24 08:35 Midodrine 5 Mg Tablet PO 12/13/24 13:59 TID PRN SBP below 100 Multivitamins/Minerals 15 ml 11/14/24 09:00 11/14/24 10:05 Multivitamin 15 Ml Udc PO 12/14/24 08:59 15 ml QDAY BETO Administration Ondansetron HCl 4 mg 11/03/24 15:32 Ondansetron Inj 2 Mg/Ml Inj 2 Ml IVP 12/03/24 15:31 Q6H PRN NAUSEA OR VOMITING Protocol Pantoprazole Sodium 40 mg 11/14/24 09:00 11/14/24 10:06 Pantoprazole 40 Mg Tablet PO 12/14/24 08:59 40 mg BID BETO Administration Rifaximin 550 mg 11/08/24 13:45 11/14/24 10:06 Rifaximin 550 Mg Tablet PO 11/15/24 13:44 550 mg BID BETO Administration Sennosides 1 tab 11/04/24 09:00 11/14/24 10:07 Senna Tablet PO 12/04/24 08:59 Not Given QDAY BETO Protocol Sodium Chloride 3 ml 11/03/24 10:58 Sodium Chloride Rt Anastacia 0.9% 3 Ml Nebu INH 12/03/24 10:57 PRN PRN SOLN Thiamine HCl 100 mg 11/14/24 09:00 11/14/24 10:06 Thiamine 100 Mg Tablet PO 12/14/24 08:59 100 mg QDAY BETO Administration Plan Summary: Mr. Trejo is a 49-year-old male with past medical history of hypertension and personal history of esophageal cancer status post-treatment in remission who presented to [facility] emergency department on 11/03/2024 with a chief complaint of weakness and shortness of breath. #Acute encephalopathy #Questionable Warnicke encephalopathy #Generalized weakness #Demyelinating disease pattern on MRI - Patient is cachectic with temporal wasting, and BMI of 18.3 kg/m. Patient has been off of sedation for 4 days - Consider hepatic/metabolic encephalopathy in the setting of alcohol use, vs infectious, vs alcohol withdrawal, vs vs anoxic (distributive/septic shock vs hypovolemic). - Weakness Ddx: alcohol-related polyneuropathy vs inflammatory myopathy vs deconditioning vs nutritional/vit deficiency. - Imaging showed irregular liver contour; Ammonia was 78 on presentation. has LGIB. - MRI of the head showed punctate foci with increased signal in the frontal parietal white matter, demyelinating disease pattern possible. Low likelihood of esophageal cancer metastasis. - Neurology on board. Plan: - Thiamine, folate and multivitamin - Lactulose 20 GM p.o. 3 times daily, goal of 3-4 BM per day - Rifxamin 550mg BID - Pending EEG read-out - Neurology consulted, pending acetylcholine receptor antibody (myasthenia gravis) - Neurology recommends outpatient EMG assessment if pt shows poor progress with PT. #Pneumonia #Leukocytosis #Acute phase reaction to stress dose steroids Differential diagnosis: - Consider aspiration pneumonia in the presence of dysphagia due to history of esophageal cancer, vs hospital-acquired pneumonia vs atelectasis. Diagnostic workup: - Chest x-ray significant for bibasilar infiltrates - Initial ABG shows pH 7.35, pCO2 21, pO2 193, bicarb 12, patient on high flow nasal cannula in ED, significantly tachypneic, increased work of breathing, respiratory rate in 40s, accessory muscle use noted. - ABG 11/11/2024 pH 7.45, CO2 42, PaO2 83, HCO3 29 - Patient denies any sick contacts, although CTA shows significant right-sided pneumonia and left base pneumonia - Bedside flu, COVID negative, cocci IgM negative, MRSA nasal screen negative, Blood cultures negative -Thick excessive secretions and cough improved, CTAB on PE 11/13 -WBC 21.8, 17.5 (11/14) Plan: - Completed treatment with Zosyn and ceftriaxone - Chest PT - DuoNebs Q4 PRN, albuterol/ipratropium Q4 PRN, Mucinex PRN - Follow CBC #Suspicion of Takotsubo cardiomyopathy #Possible LVOT obstruection 2/2 ABBI - Echo 11/03/2024 showed ejection fraction 35 to 40%, decreased apical motion - TTE: moderate Lt ventricular systolic dysfunction, severe MR, some LVOT obstruction - Appears intravascularly dry evidenced by hypernatremia and lack of edema on physical exam Plan: - switched metoprolol succinate 25 mg to carvedilol 3.125mg bidwm for secondary benefit to esophageal varices 2/2 portal HTN - Continue midodrine 5 mg p.o. 3 times daily - Cardiology consulted, appreciate recommendations - pending TTE by cardiology to re-evaluate LVEF, LVOT obstruction, ABBI #NSTEMI of undetermined cause, resolved - Trop i peak 4.326, downtrended subsequntly. 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 Liver ultrasound shows ascites. - AST 66 ALT 73 11/11/2024, has been downtrending; transaminitis likely 2/2 hypoxic liver injury - MELD score of 7, 1.9% estimated 3-month mortality - Child-Pug Score: 8 - EGD 11/07/2024 showed grade 1 esophageal varices, 2+ esophageal varices not large enough for band ligation Plan: - Continue folate and thiamine - Continue lactulose 20 GM p.o. 3 times daily, titrate to 4-5 bowel movements - Continue octreotide gtt for 5 days started on the 11/07/2024 ends in 11/12/2024 - Continue Protonix twice daily - Hb daily monitor #Esophageal cancer, in remission As reported by the patient. Differential diagnosis: Patient is status post esophagectomy Diagnostic workup: - Patient reported self history of esophageal cancer reports completed treatment heart disease in remission - History of esophagectomy, there is suspicion of underlying dysphagia Follow-up: - Passed swallow evaluation AM 11/13 - Continue tube feeds #Large right inguinal hernia #Dilated bowel loops Differential diagnosis: Incarcerated hernia. Diagnostic workup: - On physical exam hernia is reducible, low suspicion of incarceration - CTA abdomen pelvis shows large right inguinal hernia noted on imaging as well, no radiological signs of incarceration Treatment: - General Surgery consulted, no surgical intervention needed in this admission, can follow up o/p #Normocytic normochromic anemia versus iron deficiency anemia Differential diagnosis: Nutritional deficiency, in the setting of sepsis, GI bleed, low suspicion of hemolysis Diagnostic workup: - Hemoglobin 8.1 on presentation - Hemoglobin 8.2 hematocrit 26.5 11/13/2024 - Iron level 19 on 11/07/2024 Treatment: - First dose ferric Sod Glut 125 mg received 11/08/2024, 5-day course, will continue on transfer to telemetry [facility] - Follow CBC in a.m. - Continue folic acid and multivitamin #Hypernatremia, resolved Differential diagnosis: Hypovolemia - Was given free water flushes Diagnostic workup: - Na 152 11/11/2024 - Pt free water deficit calculated to be 2.64L - Na 145 11/13/2024 -completion of treatment Plan: - Correction with the goal of achieving normal range natremia in 72h with IV [id number] - recommend drinking free water as much as possible. - Continue to monitor urine output - Follow sodium in a.m. #Alcohol withdrawal (resolved) # Distributive shock, secondary to sepsis, septic shock secondary to aspiration pneumonia, resolved #Acute hypoxic respiratory failure secondary to pneumonia, respiratory failure in setting of shock (resolved) #Status post extubation 11/10/2024 #Hypokalemia (Resolved) #Lactic acidosis, (Resolved) #High anion gap metabolic acidosis, (Resolved) #Thrombocytosis, (Resolved) DVT prophylaxis: SCDs GI prophylaxis: IV Protonix twice a day Diet: Routine Tubes: Lines: Peripheral IV, right IJ triple-lumen Code status: Full code Dispo: Patient awake and following commands. On NC 3L O2. Lungs clearing. Tele Monitoring. The patient was seen and discussed with my attending physician Dr Iraheta and my senior residents Dr. Lynn Pelayo DO PGY-1. Attending Provider Attestation/Addendum I attest that I was physically present for the evaluation, physical examination, lab and imaging review of the patient with the residents. I discussed the case with the residents and agree with the findings and plans of care as documented above. At bedside today, patient appears comfortable, denies any new complaints. Patient is planned for TTE and possible cardiac catheterization on Saturday/Saturday with cardiology. Currently on room air, saturating well. Bryson Iraheta MD
--- NOTE | 2024-11-14 18:40 | ESPR_ITS ---
Documentation for date of: 11/14/24 Subjective Subjective Interval history: Patient evaluated Hemoglobin hematocrit 7.9 and 26.4 Patient will have a PABLITO and also a cardiac catheterization Slightly downtrending hemoglobin hematocrit 7.9 and 26.4 Exam Vital Signs Temp Pulse Resp BP Pulse Ox O2 Del Method O2 Flow Rate 98.4 F 89 20 121/74 95 Room Air 3 11/14/24 16:00 11/14/24 17:01 11/14/24 16:00 11/14/24 17:01 11/14/24 16:00 11/14/24 16:00 11/13/24 18:00 FiO2 96 11/12/24 19:13 Objective Labs 11/14/24 05:25 11/14/24 05:25 Labs: Laboratory Results - last 24 hr 11/14/24 05:25 WBC 17.5 H RBC 2.57 L Hgb 7.9 L Hct 26.4 L MCV 103 H MCH 30.7 MCHC 29.9 L RDW Std Deviation 73.1 H Plt Count 297 Neut % (Auto) 83 H Lymph % (Auto) 9 L [place] % (Auto) 5 Eos % (Auto) 2 Baso % (Auto) 1 Neut # (Auto) 14.4 H Lymph # (Auto) 1.5 [place] # (Auto) 0.9 H Eos # (Auto) 0.4 Baso # (Auto) 0.1 Immature Gran # (Auto) 0.16 H Absolute Nucleated RBC 0.03 H Immature Gran % 1 H Nucleated RBC % 0 Sodium 143 Potassium 3.2 L Chloride 107 Carbon Dioxide 26.2 Anion Gap 10 BUN 9 Creatinine 0.7 Estim Creat Clear Calc 90.8 eGFR > 60 BUN/Creatinine Ratio 13 Glucose 112 H Calculated Osmolality 284 Calcium 8.1 L Corrected Calcium 8.9 Phosphorus 2.5 Magnesium 1.6 Total Bilirubin 0.5 AST 111 H ALT 85 H Alkaline Phosphatase 145 H D Total Protein 5.8 Albumin 3.0 L Globulin 2.8 Albumin/Globulin Ratio 1.1 L Impressions Impression: Esophageal varices Gastritis Continue to monitor CBC ABG Interpretation ABG results: 11/03/24 11/03/24 11/03/24 11:20 14:11 17:06 ABG pH 7.35 7.34 L 7.20 L D ABG pCO2 21 L 20 L 45 D ABG pO2 193 H 82 L D 78 L ABG HCO3 12 L 11 L 16 L ABG O2 Saturation 100 H 96 91 ABG Base Excess -12 L -14 L -12 L VBG pH VBG pCO2 VBG pO2 VBG Base Excess 11/04/24 11/04/24 11/04/24 00:00 04:29 05:15 ABG pH 7.50 H D ABG pCO2 30 L D ABG pO2 109 H D ABG HCO3 23 ABG O2 Saturation 100 H ABG Base Excess 1 VBG pH 7.43 7.52 VBG pCO2 35 L 27 L VBG pO2 43 57 VBG Base Excess -1 0 11/05/24 11/06/24 11/06/24 04:49 03:40 21:45 ABG pH 7.48 H 7.41 ABG pCO2 35 43 ABG pO2 74 L D 108 D ABG HCO3 26 27 H ABG O2 Saturation 96 99 H ABG Base Excess 3 2 VBG pH 7.49 VBG pCO2 39 D VBG pO2 39 VBG Base Excess 6 H 11/07/24 11/08/24 11/09/24 05:59 04:19 04:11 ABG pH 7.49 H 7.48 H 7.44 ABG pCO2 39 38 40 ABG pO2 71 L D 77 L 63 L ABG HCO3 29 H 29 H 27 H ABG O2 Saturation 96 97 93 ABG Base Excess 6 H 5 H 3 VBG pH VBG pCO2 VBG pO2 VBG Base Excess 11/10/24 07:02 ABG pH 7.45 ABG pCO2 42 ABG pO2 83 D ABG HCO3 29 H ABG O2 Saturation 98 ABG Base Excess 5 H VBG pH VBG pCO2 VBG pO2 VBG Base Excess Assessment & Plan A&P Narrative 49 years old male with acute respiratory failure bilateral pneumonia acute coronary syndrome mechanically ventilated with previous history of Esophageal carcinoma status posttreatment and supposedly in remission Difficulty placing the NGT only OGT in Plan Will attempt to place a 14 [place] NGT either via nasogastric approach or oral approach Will follow the patient # Transaminitis most likely due to hypoxic hepatitis Thank you very much for the opportunity to participate in the care of this patient Time Spent With Patient Time: Total time spent is greater than 50% in coordination of care (as documented) at patient's floor/unit and/or counseling patient:
[2024-11-14] MEDS: ATORVASTATIN CALCIUM 20 MG TABLET 40 MG PO (21:17)
[2024-11-14] MEDS: LACTULOSE SYRUP 20 GM/30 ML UDC PO (21:17)
--- NOTE | 2024-11-14 23:52 | VVPN_ITS ---
Telemedicine visit statement This visit was conducted with the use of phone was obtained on 11/14/24 at 2352. Documentation for date of: 11/14/24 Subjective Subjective Interval history: Patient is seen in telemetry. His mental status and strength are improving. He is able to tolerate oral diet.. Virtual exam Vital Signs Temp Pulse Resp BP Pulse Ox O2 Del Method O2 Flow Rate 98.5 F 89 22 H 115/67 96 Room Air 3 11/14/24 20:00 11/14/24 23:47 11/14/24 23:47 11/14/24 20:00 11/14/24 23:47 11/14/24 20:00 11/13/24 18:00 FiO2 96 11/12/24 19:13 Objective Labs 11/15/24 04:46 11/15/24 04:46 Labs: Laboratory Results - last 24 hr 11/14/24 05:25 WBC 17.5 H RBC 2.57 L Hgb 7.9 L Hct 26.4 L MCV 103 H MCH 30.7 MCHC 29.9 L RDW Std Deviation 73.1 H Plt Count 297 Neut % (Auto) 83 H Lymph % (Auto) 9 L [place] % (Auto) 5 Eos % (Auto) 2 Baso % (Auto) 1 Neut # (Auto) 14.4 H Lymph # (Auto) 1.5 [place] # (Auto) 0.9 H Eos # (Auto) 0.4 Baso # (Auto) 0.1 Immature Gran # (Auto) 0.16 H Absolute Nucleated RBC 0.03 H Immature Gran % 1 H Nucleated RBC % 0 Sodium 143 Potassium 3.2 L Chloride 107 Carbon Dioxide 26.2 Anion Gap 10 BUN 9 Creatinine 0.7 Estim Creat Clear Calc 90.8 eGFR > 60 BUN/Creatinine Ratio 13 Glucose 112 H Calculated Osmolality 284 Calcium 8.1 L Corrected Calcium 8.9 Phosphorus 2.5 Magnesium 1.6 Total Bilirubin 0.5 AST 111 H ALT 85 H Alkaline Phosphatase 145 H D Total Protein 5.8 Albumin 3.0 L Globulin 2.8 Albumin/Globulin Ratio 1.1 L ABG Interpretation ABG results: 11/03/24 11/03/24 11/03/24 11:20 14:11 17:06 ABG pH 7.35 7.34 L 7.20 L D ABG pCO2 21 L 20 L 45 D ABG pO2 193 H 82 L D 78 L ABG HCO3 12 L 11 L 16 L ABG O2 Saturation 100 H 96 91 ABG Base Excess -12 L -14 L -12 L VBG pH VBG pCO2 VBG pO2 VBG Base Excess 11/04/24 11/04/24 11/04/24 00:00 04:29 05:15 ABG pH 7.50 H D ABG pCO2 30 L D ABG pO2 109 H D ABG HCO3 23 ABG O2 Saturation 100 H ABG Base Excess 1 VBG pH 7.43 7.52 VBG pCO2 35 L 27 L VBG pO2 43 57 VBG Base Excess -1 0 11/05/24 11/06/24 11/06/24 04:49 03:40 21:45 ABG pH 7.48 H 7.41 ABG pCO2 35 43 ABG pO2 74 L D 108 D ABG HCO3 26 27 H ABG O2 Saturation 96 99 H ABG Base Excess 3 2 VBG pH 7.49 VBG pCO2 39 D VBG pO2 39 VBG Base Excess 6 H 11/07/24 11/08/24 11/09/24 05:59 04:19 04:11 ABG pH 7.49 H 7.48 H 7.44 ABG pCO2 39 38 40 ABG pO2 71 L D 77 L 63 L ABG HCO3 29 H 29 H 27 H ABG O2 Saturation 96 97 93 ABG Base Excess 6 H 5 H 3 VBG pH VBG pCO2 VBG pO2 VBG Base Excess 11/10/24 07:02 ABG pH 7.45 ABG pCO2 42 ABG pO2 83 D ABG HCO3 29 H ABG O2 Saturation 98 ABG Base Excess 5 H VBG pH VBG pCO2 VBG pO2 VBG Base Excess Assessment & Plan Assessment # Generalized weakness, improving (possible alcohol related polyneuropathy) # Metabolic ncephalopathy, improving Initial presentation in ED: generalized weakness x2 weeks, AMS, increased work of breathing markedly improved orientation, vocalization, muscle strength MRI brain without contrast 11/09: Punctate foci site in frontal parietal b/l white matter on FLAIR, non-specific, chronic, NOT suggestive of demyelinating diseae Weakness DDX: alcohol-related polyneuropathy, inflammatory myopathy, deconditioning, nutritional/vitamin deficiency Plan: - No need for further workup as patient is improving - Continue thiamine, folate - Pending AChR Ab (myasthenia gravis) - If weakness persist even after physical therapy, we will consider doing EMG nerve conduction study of both upper and lower extremities as an outpatient
[2024-11-15] VITALS (9 sets, daily range): BP systolic 90–157; BP diastolic 59–84; PULSE 86–99; RESP 16–96; TEMP 36.6–37.1; O2SAT 95–99; BMI 23.2
[2024-11-15] MEDS: LACTULOSE SYRUP 20 GM/30 ML UDC PO (05:02)
[2024-11-15 05:26] LABS: Basophils # (Auto) 0.1 Thou/mm3 (0.0-0.2); Basophils % (Auto) 1 % (0-2.5); Eosinophils # (Auto) 0.4 Thou/mm3 (0.0-0.5); Eosinophils % (Auto) 2 % (0-10); Hematocrit 24.6 % (41.0-53.0); Immature Granulocytes Auto 0.16 Thou/mm3 (0.00-0.00); Lymphocytes # (Auto) 1.8 Thou/mm3 (1.0-4.8); Lymphocytes % (Auto) 10 % (10-50); Mean Corpuscular HGB Conc 32.1 g/dl (31.0-37.0); Mean Corpuscular Hemoglobin 31.3 pg (25.0-35.0); Mean Corpuscular Volume 98 fL (80-100); Monocytes # (Auto) 1.0 Thou/mm3 (0.0-0.8); Monocytes % (Auto) 6 % (0-12); Neutrophils # (Auto) 13.9 Thou/mm3 (1.8-7.7); Neutrophils % (Auto) 80 % (37-80); Nucleated Red Blood Cell # 0.02 Thou/mm3 (0.00-0.00); Nucleated Red Blood Cell % 0 /100 WBC (0); Platelet Count 363 Thou/mm3 (140-440); RDW Standard Deviation 71.3 fL (35.1-43.9); Red Blood Count 2.52 Miln/mm3 (4.50-5.90); White Blood Count 17.3 Thou/mm3 (3.8-10.6)
[2024-11-15 05:57] LABS: Hemoglobin 7.9 g/dL (13.5-16.0)
[2024-11-15 06:00] LABS: Alanine Aminotransferase 81 U/L (10-49); Albumin, Serum 3.1 gm/dL (3.5-5.0); Albumin/Globulin Ratio 1.1 (1.2-2.2); Alkaline Phosphatase 156 U/L (46-116); Anion Gap 10 (7-16); Aspartate Amino Transferase 109 U/L (0-34); BUN/Creatinine Ratio 13 Ratio (12-20); Bilirubin,Total 0.5 mg/dL (0.3-1.2); Blood Urea Nitrogen 10 mg/dL (9-23); Calcium 8.1 mg/dL (8.3-10.6); Calcium (Corrected) 8.8 mg/dL (8.5-10.1); Carbon Dioxide 24.3 mMol/L (20.0-31.0); Chloride 103 mMol/L (98-107); Creatinine (Component) 0.8 mg/dL (0.6-1.3); Estimated Creatinine Clearance 79.4 mL/min (>60); Globulin 2.8 gm/dL (2.3-3.5); Glucose 116 mg/dL (74-106); Magnesium 1.9 mg/dL (1.6-2.6); Osmolality,Calculated 273 (275-295); Phosphorous 2.7 mg/dL (2.4-5.1); Potassium 4.4 mMol/L (3.4-5.1); Sodium 137 mMol/L (136-145); Total Protein 5.9 gm/dL (5.7-8.2); eGFR > 60 See Note
[2024-11-15] MEDS: ASPIRIN 81 MG CHEW PO (09:44)
[2024-11-15] MEDS: PANTOPRAZOLE 40 MG TABLET PO ×2 (09:44→20:12)
[2024-11-15] MEDS: MULTIVITAMIN 15 ML UDC PO (09:44)
[2024-11-15] MEDS: THIAMINE 100 MG TABLET PO (09:44)
[2024-11-15] MEDS: FOLIC ACID 1 MG TABLET PO (09:44)
[2024-11-15 10:15] LABS: Ammonia < 10 uMol/L (11-32)
[2024-11-15] MEDS: FERRIC SOD GLUC INJ 125 MG in SODIUM CHLORIDE 0.9% 100 ML 110 MG IV (12:06)
--- NOTE | 2024-11-15 14:37 | ESPR_ITS ---
<Statement entered by Vilma Bailey MD - 11/15/24 15:22> A 49-year-old male with a history of hypertension, esophageal cancer (in remission), and chronic alcohol use presented on November 03, 2024, with progressive weakness, fatigue, and severe shortness of breath. He was intubated for acute respiratory failure and distributive versus septic shock in settings of severe pneumonia which has since resolved.. His condition worsened with gastrointestinal bleeding, suspected cirrhosis, and hepatic encephalopathy. Liver imaging confirmed cirrhosis and ascites, and he was treated for alcohol-related liver disease. Neurologically, he had lethargy and upper extremity weakness, with MRI suggesting a demyelinating process. Cardiac evaluation showed reduced ejection fraction and possible Takotsubo cardiomyopathy, requiring early vasopressor support. By November 10, he was extubated and transitioned to oxygen. EKG showed deep T wave inversion in lateral leads and inverted T waves in lead I and aVL. He did have an NSTEMI type II on admission. However, additional echo findings included sigmoid interventricular septum, moderate to severe eccentric MR, moderate to severe PAH, HFrEF with apical akinesis. For this, cardiology is planning on cath possibly Saturday or Saturday. We've been treating hypernatremia which had resolved with IV NS. Now encouraging oral intake and fluids. Mentation over all improving, he is more awake and responsive, tolerating oral intake. Mucous secretion overall improved with MUCINEX and DuoNebs. Hemoglobin has been stable around 8.0. Pancultures have been negative. Case was discussed with attending physician. Vilma Bailey DO PGY II This document was transcribed using voice recognition technology. Minor inaccuracies may be present. Documentation for date of: 11/15/24 Subjective Subjective Interval history: Patient was seen and examined at bedside. No acute events took place overnight. Patient is off oxymask, and satting 95% on 3L O2. Patient is sitting comfortably in the bed, tolerates intake without nausea/vomit. Patient speaks to this entry writer at ease and follows directions. Coughs, when moving in bed. Pt has been receiving physical therapy and weakness has markedly improved. Denies dyspnea, tachypnea, wheezing, or chest pain. Exam Vital Signs Temp Pulse Resp BP Pulse Ox O2 Del Method O2 Flow Rate 98.1 F 86 18 103/61 97 Room Air 3 11/15/24 12:00 11/15/24 12:43 11/15/24 12:43 11/15/24 12:00 11/15/24 12:00 11/15/24 12:00 11/13/24 18:00 FiO2 96 11/12/24 19:13 Narrative Exam General: Ill-appearing man, lethargic, cachectic, temporal wasting. Neurologic: GCS 13, following commands. HEENT: Normocephalic, atraumatic, mucous membranes dry. Pupils reactive to light. Heart: RRR, systolic murmur at the mitral listening post left fifth intercostal space sternal border. Lungs: Pectus excavatum, clear to auscultation bilaterally Abdomen: Right sided reducible inguinal hernia. Right lower quadrant bruise approximately 5 cm long at the site of heparin SQ inj. Extremities: No edema in the lower extremities bilaterally. 2+ radial and dorsalis pedis pulses bilaterally. Rt knee effusions. Skin: Cool. Dry. No rash. Objective Labs 11/15/24 04:46 11/15/24 04:46 Labs: Laboratory Results - last 24 hr 11/15/24 11/15/24 04:46 09:30 WBC 17.3 H RBC 2.52 L Hgb 7.9 L Hct 24.6 L MCV 98 MCH 31.3 MCHC 32.1 RDW Std Deviation 71.3 H Plt Count 363 D Neut % (Auto) 80 Lymph % (Auto) 10 [place] % (Auto) 6 Eos % (Auto) 2 Baso % (Auto) 1 Neut # (Auto) 13.9 H Lymph # (Auto) 1.8 [place] # (Auto) 1.0 H Eos # (Auto) 0.4 Baso # (Auto) 0.1 Immature Gran # (Auto) 0.16 H Absolute Nucleated RBC 0.02 H Immature Gran % 1 H Nucleated RBC % 0 Sodium 137 Potassium 4.4 D Chloride 103 Carbon Dioxide 24.3 Anion Gap 10 BUN 10 Creatinine 0.8 Estim Creat Clear Calc 79.4 eGFR > 60 BUN/Creatinine Ratio 13 Glucose 116 H Calculated Osmolality 273 L Calcium 8.1 L Corrected Calcium 8.8 Phosphorus 2.7 Magnesium 1.9 Total Bilirubin 0.5 AST 109 H ALT 81 H Alkaline Phosphatase 156 H Ammonia < 10 L Total Protein 5.9 Albumin 3.1 L Globulin 2.8 Albumin/Globulin Ratio 1.1 L ABG Interpretation ABG results: 11/03/24 11/03/24 11/03/24 11:20 14:11 17:06 ABG pH 7.35 7.34 L 7.20 L D ABG pCO2 21 L 20 L 45 D ABG pO2 193 H 82 L D 78 L ABG HCO3 12 L 11 L 16 L ABG O2 Saturation 100 H 96 91 ABG Base Excess -12 L -14 L -12 L VBG pH VBG pCO2 VBG pO2 VBG Base Excess 11/04/24 11/04/24 11/04/24 00:00 04:29 05:15 ABG pH 7.50 H D ABG pCO2 30 L D ABG pO2 109 H D ABG HCO3 23 ABG O2 Saturation 100 H ABG Base Excess 1 VBG pH 7.43 7.52 VBG pCO2 35 L 27 L VBG pO2 43 57 VBG Base Excess -1 0 11/05/24 11/06/24 11/06/24 04:49 03:40 21:45 ABG pH 7.48 H 7.41 ABG pCO2 35 43 ABG pO2 74 L D 108 D ABG HCO3 26 27 H ABG O2 Saturation 96 99 H ABG Base Excess 3 2 VBG pH 7.49 VBG pCO2 39 D VBG pO2 39 VBG Base Excess 6 H 11/07/24 11/08/24 11/09/24 05:59 04:19 04:11 ABG pH 7.49 H 7.48 H 7.44 ABG pCO2 39 38 40 ABG pO2 71 L D 77 L 63 L ABG HCO3 29 H 29 H 27 H ABG O2 Saturation 96 97 93 ABG Base Excess 6 H 5 H 3 VBG pH VBG pCO2 VBG pO2 VBG Base Excess 11/10/24 07:02 ABG pH 7.45 ABG pCO2 42 ABG pO2 83 D ABG HCO3 29 H ABG O2 Saturation 98 ABG Base Excess 5 H VBG pH VBG pCO2 VBG pO2 VBG Base Excess Quality Measures Quality Measures sepsis Current suspected stage: ruled out Possible source: pulmonary Blood cultures ordered: completed in ED Antibiotic ordered: Yes Assessment & Plan Assessment Current Active Medications: Generic Name Dose Route Start Last Admin Trade Name Freq PRN Reason Stop Dose Admin Acetaminophen 325 mg 11/05/24 09:48 Acetaminophen 325 Mg Tablet PO 12/03/24 15:31 Q6H PRN Fever >101.5 Albuterol/Ipratropium 3 ml 11/13/24 10:30 Albuterol/Ipratropium (Duoneb) Rt Anastacia 3 Ml Nebu INH 12/11/24 10:59 Q4HRRT PRN wheezing Aspirin 81 mg 11/14/24 09:00 11/15/24 09:44 Aspirin 81 Mg Chew PO 12/14/24 08:59 81 mg QDAY BETO Administration Atorvastatin Calcium 40 mg 11/13/24 21:00 11/14/24 21:17 Atorvastatin Calcium 20 Mg Tablet PO 12/13/24 20:59 40 mg HS BETO Administration Carvedilol 3.125 mg 11/14/24 11:00 11/15/24 09:44 Carvedilol 3.125 Mg Tablet PO 12/14/24 10:59 3.125 mg BIDWM BETO Administration Dextrose 25 ml 11/11/24 16:45 Dextrose 50%-Water Inj 50 Ml Syringe IV 12/11/24 16:44 Q15MIN PRN BG 50-70 responsive npo pt Dextrose 50 ml 11/11/24 16:45 Dextrose 50%-Water Inj 50 Ml Syringe IV 12/11/24 16:44 Q15MIN PRN BG <50 OR BG <70 & pt unresponsive Folic Acid 1 mg 11/14/24 09:00 11/15/24 09:44 Folic Acid 1 Mg Tablet PO 12/14/24 08:59 1 mg QDAY BETO Administration Glucagon 1 mg 11/11/24 16:45 Glucagon Inj 1 Mg Vial IM Q15MIN PRN BG <70, and no IV access Ferric Sodium Gluconate 125 mg 110 mls @ 110 mls/hr 11/08/24 17:15 11/15/24 12:06 / Sodium Chloride IV 12/08/24 17:14 110 mls/hr QDAY BETO Administration Insulin Human Lispro 0 unit 11/12/24 17:15 11/15/24 11:35 Insulin Lispro (Admelog) 1 Unit/0.01 Ml Unit SC 12/12/24 17:14 Not Given ACHS BETO Protocol Lactulose 20 gm 11/13/24 14:00 11/15/24 14:02 Lactulose Syrup 20 Gm/30 Ml Udc PO 12/13/24 13:59 Not Given TID BETO Protocol Midodrine 5 mg 11/14/24 08:35 Midodrine 5 Mg Tablet PO 12/13/24 13:59 TID PRN SBP below 100 Multivitamins/Minerals 15 ml 11/14/24 09:00 11/15/24 09:44 Multivitamin 15 Ml Udc PO 12/14/24 08:59 15 ml QDAY BETO Administration Ondansetron HCl 4 mg 11/03/24 15:32 Ondansetron Inj 2 Mg/Ml Inj 2 Ml IVP 12/03/24 15:31 Q6H PRN NAUSEA OR VOMITING Protocol Pantoprazole Sodium 40 mg 11/14/24 09:00 11/15/24 09:44 Pantoprazole 40 Mg Tablet PO 12/14/24 08:59 40 mg BID BETO Administration Sennosides 1 tab 11/04/24 09:00 11/15/24 09:45 Senna Tablet PO 12/04/24 08:59 Not Given QDAY BETO Protocol Sodium Chloride 3 ml 11/03/24 10:58 Sodium Chloride Rt Anastacia 0.9% 3 Ml Nebu INH 12/03/24 10:57 PRN PRN SOLN Thiamine HCl 100 mg 11/14/24 09:00 11/15/24 09:44 Thiamine 100 Mg Tablet PO 12/14/24 08:59 100 mg QDAY BETO Administration Plan Summary: Mr. Trejo is a 49-year-old male with past medical history of hypertension and personal history of esophageal cancer status post-treatment in remission who presented to [facility] emergency department on 11/03/2024 with a chief complaint of weakness and shortness of breath. #Acute encephalopathy #Questionable [place]ke encephalopathy #Generalized weakness #Demyelinating disease pattern on MRI - Patient is cachectic with temporal wasting, and BMI of 18.3 kg/m. Patient has been off of sedation for 4 days - Consider hepatic/metabolic encephalopathy in the setting of alcohol use, vs infectious, vs alcohol withdrawal, vs vs anoxic (distributive/septic shock vs hypovolemic). - Weakness Ddx: alcohol-related polyneuropathy vs inflammatory myopathy vs deconditioning vs nutritional/vit deficiency. - Imaging showed irregular liver contour; Ammonia was 78 on presentation. has LGIB. - MRI of the head showed punctate foci with increased signal in the frontal parietal white matter, demyelinating disease pattern possible. Low likelihood of esophageal cancer metastasis. - EEG is abnormal with intermittent slowing consistent with metabolic/degenerative or vascular origin. However, no epileptiform discharges noted. NH4+ <10 11/15 Plan: - Thiamine, folate and multivitamin - Lactulose 20 GM p.o. 3 times daily, goal of 3-4 BM per day - Rifxamin 550mg BID - Neurology consulted, pending acetylcholine receptor antibody (myasthenia gravis) - Neurology recommends outpatient EMG assessment if pt shows poor progress with PT. - F/P with neurology outpatinet for determining prognosis. #Pneumonia #Leukocytosis #Acute phase reaction to stress dose steroids Differential diagnosis: - Consider aspiration pneumonia in the presence of dysphagia due to history of esophageal cancer, vs hospital-acquired pneumonia vs atelectasis. Diagnostic workup: - Chest x-ray significant for bibasilar infiltrates - Initial ABG shows pH 7.35, pCO2 21, pO2 193, bicarb 12, patient on high flow nasal cannula in ED, significantly tachypneic, increased work of breathing, respiratory rate in 40s, accessory muscle use noted. - ABG 11/11/2024 pH 7.45, CO2 42, PaO2 83, HCO3 29 - Patient denies any sick contacts, although CTA shows significant right-sided pneumonia and left base pneumonia - Bedside flu, COVID negative, cocci IgM negative, MRSA nasal screen negative, Blood cultures negative -Thick excessive secretions and cough improved, CTAB on PE 11/13 -WBC 21.8, 17.5, 17/3 (11/15) Plan: - Completed treatment with Zosyn and ceftriaxone - Chest PT - DuoNebs Q4 PRN, albuterol/ipratropium Q4 PRN, Mucinex PRN - Follow CBC #Suspicion of Takotsubo cardiomyopathy #Possible LVOT obstruection 2/2 [facility] - Echo 11/03/2024 showed ejection fraction 35 to 40%, decreased apical motion - TTE: moderate Lt ventricular systolic dysfunction, severe MR, some LVOT obstruction - Appears intravascularly dry evidenced by hypernatremia and lack of edema on physical exam Plan: - switched metoprolol succinate 25 mg to carvedilol 3.125mg bidwm for secondary benefit to esophageal varices 2/2 portal HTN - Midodrine 5 mg p.o. 3 times daily PRN with elevating BP - Cardiology consulted, appreciate recommendations - TTE for reevaluation of LVEF (cardio, 11/14) - Limited TTE - Normal LV size and function. Mild LVH. Estimated EF at 60-65 %. Sigmoid septum noted. Grade 1 diastolic dysfunction. Normal RV size and function. RVSP mild to moderately elevated around 35 to 40 mmHg. Mild to moderate eccentric MR. Improved ABBI and peak resting gradient is around 40 mmHg Much improved than on admission which was around 80-100 mmHg. Moderate aortic valve sclerosis without any clear evidence of stenosis. Mild TR Mildly dilated LA and IVC not well-visualized. #NSTEMI of undetermined cause, resolved - Trop i peak 4.326, downtrended subsequntly. Plan: - ASA 81mg, atorvastatin 40mg Qday - Cardiology to complete Rt and Lt heart cath on Sat/Tue prior to DC - Pt needs to be NPO for the morning prior to cath. #Decompensated cirrhosis 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 #Transaminitis #Suspected hepatic encephalopathy #GI bleed workup #Melena Diagnostic workup: - CTA abdomen showed evidence of cirrhosis - Per the patient's family member the patient consumes 2 bottles of hard alcohol on a daily basis in addition to beer, Hepatitis panel negative - CT chest abdomen pelvis showed cirrhosis. Liver ultrasound shows ascites. - AST 66 ALT 73 11/11/2024, has been downtrending; transaminitis likely 2/2 hypoxic liver injury - MELD score of 7, 1.9% estimated 3-month mortality - Child-Pug Score: 8 - EGD 11/07/2024 showed grade 1 esophageal varices, 2+ esophageal varices not large enough for band ligation Plan: - Continue folate and thiamine - Continue lactulose 20 GM p.o. 3 times daily, titrate to 4-5 bowel movements - Continue octreotide gtt for 5 days started on the 11/07/2024 ends in 11/12/2024 - Continue Protonix twice daily - Hb daily monitor #Esophageal cancer, in remission As reported by the patient. Differential diagnosis: Patient is status post esophagectomy Diagnostic workup: - Patient reported self history of esophageal cancer reports completed treatment heart disease in remission - History of esophagectomy, there is suspicion of underlying dysphagia Follow-up: - Passed swallow evaluation AM 11/13 - Continue tube feeds #Large right inguinal hernia #Dilated bowel loops Differential diagnosis: Incarcerated hernia. Diagnostic workup: - On physical exam hernia is reducible, low suspicion of incarceration - CTA abdomen pelvis shows large right inguinal hernia noted on imaging as well, no radiological signs of incarceration Treatment: - General Surgery consulted, no surgical intervention needed in this admission, can follow up o/p #Normocytic normochromic anemia versus iron deficiency anemia Differential diagnosis: Nutritional deficiency, in the setting of sepsis, GI bleed, low suspicion of hemolysis Diagnostic workup: - Hemoglobin 8.1 on presentation - Hemoglobin 8.2 hematocrit 26.5 11/13/2024 - Iron level 19 on 11/07/2024 Treatment: - First dose ferric Sod Glut 125 mg received 11/08/2024, 5-day course, will continue on transfer to telemetry [facility] - Follow CBC in a.m. - Continue folic acid and multivitamin #Hypernatremia, resolved Differential diagnosis: Hypovolemia - Was given free water flushes Diagnostic workup: - Na 152 11/11/2024 - Pt free water deficit calculated to be 2.64L - Na 145 11/13/2024 -completion of treatment Plan: - Correction with the goal of achieving normal range natremia in 72h with IV [id number] - Stop free water flushes post-treatment - recommend drinking free water as much as possible. - Continue to monitor urine output - Follow sodium in a.m. #Alcohol withdrawal (resolved) # Distributive shock, secondary to sepsis, septic shock secondary to aspiration pneumonia, resolved #Acute hypoxic respiratory failure secondary to pneumonia, respiratory failure in setting of shock (resolved) #Status post extubation 11/10/2024 #Hypokalemia (Resolved) #Lactic acidosis, (Resolved) #High anion gap metabolic acidosis, (Resolved) #Thrombocytosis, (Resolved) DVT prophylaxis: SCDs GI prophylaxis: IV Protonix twice a day Diet: Routine Tubes: Lines: Peripheral IV, right IJ triple-lumen Code status: Full code Dispo: Patient awake and following commands. On NC 3L O2. Lungs clearing. Tele Monitoring. The patient was seen and discussed with my attending physician Dr Iraheta and my senior residents Dr. Lynn Pelayo DO PGY-1. Attending Provider Attestation/Addendum I attest that I was physically present for the evaluation, physical examination, lab and imaging review of the patient with the residents. I discussed the case with the residents and agree with the findings and plans of care as documented above. At bedside today, patient appears comfortable. Saturating well on room air. Denies any new complaints. Patient is awaiting cardiac catheterization with cardiology possibly tomorrow/Saturday. Limited echo has been taken, awaiting read. WBC count has been improving. Hemoglobin remained stable, 7.9 today. He is tolerating oral diet well. Bryson Iraheta MD
--- NOTE | 2024-11-15 18:07 | ESPR_ITS ---
Documentation for date of: 11/15/24 Subjective Subjective Interval history: Hemoglobin hematocrit 7.9 and 24.6 with a platelet count of 363,000 Upper endoscopy had shown to be esophageal varices not large enough for band ligation hypertensive portal gastropathy Exam Vital Signs Temp Pulse Resp BP Pulse Ox O2 Del Method O2 Flow Rate 98.6 F 92 18 137/84 H 96 Room Air 3 11/15/24 16:00 11/15/24 17:35 11/15/24 16:00 11/15/24 17:35 11/15/24 16:00 11/15/24 16:00 11/13/24 18:00 FiO2 96 11/12/24 19:13 Objective Labs 11/15/24 04:46 11/15/24 04:46 Labs: Laboratory Results - last 24 hr 11/15/24 11/15/24 04:46 09:30 WBC 17.3 H RBC 2.52 L Hgb 7.9 L Hct 24.6 L MCV 98 MCH 31.3 MCHC 32.1 RDW Std Deviation 71.3 H Plt Count 363 D Neut % (Auto) 80 Lymph % (Auto) 10 [place] % (Auto) 6 Eos % (Auto) 2 Baso % (Auto) 1 Neut # (Auto) 13.9 H Lymph # (Auto) 1.8 [place] # (Auto) 1.0 H Eos # (Auto) 0.4 Baso # (Auto) 0.1 Immature Gran # (Auto) 0.16 H Absolute Nucleated RBC 0.02 H Immature Gran % 1 H Nucleated RBC % 0 Sodium 137 Potassium 4.4 D Chloride 103 Carbon Dioxide 24.3 Anion Gap 10 BUN 10 Creatinine 0.8 Estim Creat Clear Calc 79.4 eGFR > 60 BUN/Creatinine Ratio 13 Glucose 116 H Calculated Osmolality 273 L Calcium 8.1 L Corrected Calcium 8.8 Phosphorus 2.7 Magnesium 1.9 Total Bilirubin 0.5 AST 109 H ALT 81 H Alkaline Phosphatase 156 H Ammonia < 10 L Total Protein 5.9 Albumin 3.1 L Globulin 2.8 Albumin/Globulin Ratio 1.1 L Impressions Impression: # 2+ esophageal varices not large enough for band ligation # Diffuse gastritis with hypertensive portal gastropathy Continue to monitor CBC ABG Interpretation ABG results: 11/03/24 11/03/24 11/03/24 11:20 14:11 17:06 ABG pH 7.35 7.34 L 7.20 L D ABG pCO2 21 L 20 L 45 D ABG pO2 193 H 82 L D 78 L ABG HCO3 12 L 11 L 16 L ABG O2 Saturation 100 H 96 91 ABG Base Excess -12 L -14 L -12 L VBG pH VBG pCO2 VBG pO2 VBG Base Excess 11/04/24 11/04/24 11/04/24 00:00 04:29 05:15 ABG pH 7.50 H D ABG pCO2 30 L D ABG pO2 109 H D ABG HCO3 23 ABG O2 Saturation 100 H ABG Base Excess 1 VBG pH 7.43 7.52 VBG pCO2 35 L 27 L VBG pO2 43 57 VBG Base Excess -1 0 11/05/24 11/06/24 11/06/24 04:49 03:40 21:45 ABG pH 7.48 H 7.41 ABG pCO2 35 43 ABG pO2 74 L D 108 D ABG HCO3 26 27 H ABG O2 Saturation 96 99 H ABG Base Excess 3 2 VBG pH 7.49 VBG pCO2 39 D VBG pO2 39 VBG Base Excess 6 H 11/07/24 11/08/24 11/09/24 05:59 04:19 04:11 ABG pH 7.49 H 7.48 H 7.44 ABG pCO2 39 38 40 ABG pO2 71 L D 77 L 63 L ABG HCO3 29 H 29 H 27 H ABG O2 Saturation 96 97 93 ABG Base Excess 6 H 5 H 3 VBG pH VBG pCO2 VBG pO2 VBG Base Excess 11/10/24 07:02 ABG pH 7.45 ABG pCO2 42 ABG pO2 83 D ABG HCO3 29 H ABG O2 Saturation 98 ABG Base Excess 5 H VBG pH VBG pCO2 VBG pO2 VBG Base Excess Assessment & Plan A&P Narrative 49 years old male with acute respiratory failure bilateral pneumonia acute coronary syndrome mechanically ventilated with previous history of Esophageal carcinoma status posttreatment and supposedly in remission Difficulty placing the NGT only OGT in Plan Will attempt to place a 14 [place] NGT either via nasogastric approach or oral approach Will follow the patient # Transaminitis most likely due to hypoxic hepatitis Thank you very much for the opportunity to participate in the care of this patient Time Spent With Patient Time: Total time spent is greater than 50% in coordination of care (as documented) at patient's floor/unit and/or counseling patient:
--- NOTE | 2024-11-15 19:33 | PD.RESPRO ---
Documentation for date of: 11/15/24 Subjective Subjective Interval history: Patient is seen and examined at bedside No acute overnight events. Denies any other complaints. Endorsed that he is doing good Labs done today is significant for leukocytosis, transaminitis -Limited TTE - Normal LV size and function. Mild LVH. Estimated EF at 60-65 %. Sigmoid septum noted. Grade 1 diastolic dysfunction. Normal RV size and function. RVSP mild to moderately elevated around 35 to 40 mmHg. Mild to moderate eccentric MR. Improved ABBI and peak resting gradient is around 40 mmHg much improved than on admission which was around 80-100 mmHg. Moderate aortic valve sclerosis without any clear evidence of stenosis. Mild TR Mildly dilated LA and IVC not well-visualized. -Planning to do right and left heart catheterization in a day or 2 -Continue with aspirin 81 Mg daily, atorvastatin 40 Mg daily at night, ferric gluconate 125 Mg IV daily, folic acid 1 mg daily, metoprolol succinate 25 Mg daily, midodrine 5 Mg 3 times daily, and thiamine 100 Mg daily. Exam Vital Signs Temp Pulse Resp BP Pulse Ox O2 Del Method O2 Flow Rate 98.6 F 92 18 137/84 H 96 Room Air 3 11/15/24 16:00 11/15/24 17:35 11/15/24 16:00 11/15/24 17:35 11/15/24 16:00 11/15/24 16:00 11/13/24 18:00 FiO2 96 11/12/24 19:13 Narrative Exam General: No acute distress, on oxy mask, responding well to commands, interacting with soft voice HEENT: Moist mucous membranes, oropharynx clear Neck: Supple, No masses, No JVD CVS: S1, S2 regular rate and rhythm, No murmurs, rubs or gallops Lungs: Mild wheezing throughout the lung field, improving rhonchi appreciated throughout the lung field, mild bibasilar crackles appreciated Abd: Soft, NT/ND, +BS, hepatomegaly appreciated Ext: No edema, warm and well perfused Skin: No rash Psych: Unable to obtain Objective Labs 11/15/24 04:46 11/15/24 04:46 Labs: Laboratory Results - last 24 hr 11/15/24 11/15/24 04:46 09:30 WBC 17.3 H RBC 2.52 L Hgb 7.9 L Hct 24.6 L MCV 98 MCH 31.3 MCHC 32.1 RDW Std Deviation 71.3 H Plt Count 363 D Neut % (Auto) 80 Lymph % (Auto) 10 [place] % (Auto) 6 Eos % (Auto) 2 Baso % (Auto) 1 Neut # (Auto) 13.9 H Lymph # (Auto) 1.8 [place] # (Auto) 1.0 H Eos # (Auto) 0.4 Baso # (Auto) 0.1 Immature Gran # (Auto) 0.16 H Absolute Nucleated RBC 0.02 H Immature Gran % 1 H Nucleated RBC % 0 Sodium 137 Potassium 4.4 D Chloride 103 Carbon Dioxide 24.3 Anion Gap 10 BUN 10 Creatinine 0.8 Estim Creat Clear Calc 79.4 eGFR > 60 BUN/Creatinine Ratio 13 Glucose 116 H Calculated Osmolality 273 L Calcium 8.1 L Corrected Calcium 8.8 Phosphorus 2.7 Magnesium 1.9 Total Bilirubin 0.5 AST 109 H ALT 81 H Alkaline Phosphatase 156 H Ammonia < 10 L Total Protein 5.9 Albumin 3.1 L Globulin 2.8 Albumin/Globulin Ratio 1.1 L ABG Interpretation ABG results: 11/03/24 11/03/24 11/03/24 11:20 14:11 17:06 ABG pH 7.35 7.34 L 7.20 L D ABG pCO2 21 L 20 L 45 D ABG pO2 193 H 82 L D 78 L ABG HCO3 12 L 11 L 16 L ABG O2 Saturation 100 H 96 91 ABG Base Excess -12 L -14 L -12 L VBG pH VBG pCO2 VBG pO2 VBG Base Excess 11/04/24 11/04/24 11/04/24 00:00 04:29 05:15 ABG pH 7.50 H D ABG pCO2 30 L D ABG pO2 109 H D ABG HCO3 23 ABG O2 Saturation 100 H ABG Base Excess 1 VBG pH 7.43 7.52 VBG pCO2 35 L 27 L VBG pO2 43 57 VBG Base Excess -1 0 11/05/24 11/06/24 11/06/24 04:49 03:40 21:45 ABG pH 7.48 H 7.41 ABG pCO2 35 43 ABG pO2 74 L D 108 D ABG HCO3 26 27 H ABG O2 Saturation 96 99 H ABG Base Excess 3 2 VBG pH 7.49 VBG pCO2 39 D VBG pO2 39 VBG Base Excess 6 H 11/07/24 11/08/24 11/09/24 05:59 04:19 04:11 ABG pH 7.49 H 7.48 H 7.44 ABG pCO2 39 38 40 ABG pO2 71 L D 77 L 63 L ABG HCO3 29 H 29 H 27 H ABG O2 Saturation 96 97 93 ABG Base Excess 6 H 5 H 3 VBG pH VBG pCO2 VBG pO2 VBG Base Excess 11/10/24 07:02 ABG pH 7.45 ABG pCO2 42 ABG pO2 83 D ABG HCO3 29 H ABG O2 Saturation 98 ABG Base Excess 5 H VBG pH VBG pCO2 VBG pO2 VBG Base Excess Quality Measures Quality Measures sepsis Current suspected stage: ruled out Possible source: pulmonary Blood cultures ordered: completed in ED Antibiotic ordered: Yes Assessment & Plan Assessment Current Active Medications: Generic Name Dose Route Start Last Admin Trade Name Freq PRN Reason Stop Dose Admin Acetaminophen 325 mg 11/05/24 09:48 Acetaminophen 325 Mg Tablet PO 12/03/24 15:31 Q6H PRN Fever >101.5 Albuterol/Ipratropium 3 ml 11/13/24 10:30 Albuterol/Ipratropium (Duoneb) Rt Anastacia 3 Ml Nebu INH 12/11/24 10:59 Q4HRRT PRN wheezing Aspirin 81 mg 11/14/24 09:00 11/15/24 09:44 Aspirin 81 Mg Chew PO 12/14/24 08:59 81 mg QDAY BETO Administration Atorvastatin Calcium 40 mg 11/13/24 21:00 11/14/24 21:17 Atorvastatin Calcium 20 Mg Tablet PO 12/13/24 20:59 40 mg HS BETO Administration Carvedilol 3.125 mg 11/14/24 11:00 11/15/24 17:35 Carvedilol 3.125 Mg Tablet PO 12/14/24 10:59 3.125 mg BIDWM BETO Administration Dextrose 25 ml 11/11/24 16:45 Dextrose 50%-Water Inj 50 Ml Syringe IV 12/11/24 16:44 Q15MIN PRN BG 50-70 responsive npo pt Dextrose 50 ml 11/11/24 16:45 Dextrose 50%-Water Inj 50 Ml Syringe IV 12/11/24 16:44 Q15MIN PRN BG <50 OR BG <70 & pt unresponsive Folic Acid 1 mg 11/14/24 09:00 11/15/24 09:44 Folic Acid 1 Mg Tablet PO 12/14/24 08:59 1 mg QDAY BETO Administration Glucagon 1 mg 11/11/24 16:45 Glucagon Inj 1 Mg Vial IM Q15MIN PRN BG <70, and no IV access Ferric Sodium Gluconate 125 mg 110 mls @ 110 mls/hr 11/08/24 17:15 11/15/24 13:06 / Sodium Chloride IV 12/08/24 17:14 Infused QDAY BETO Infusion Insulin Human Lispro 0 unit 11/12/24 17:15 11/15/24 16:47 Insulin Lispro (Admelog) 1 Unit/0.01 Ml Unit SC 12/12/24 17:14 Not Given ACHS BETO Protocol Lactulose 20 gm 11/13/24 14:00 11/15/24 14:02 Lactulose Syrup 20 Gm/30 Ml Udc PO 12/13/24 13:59 Not Given TID BETO Protocol Midodrine 5 mg 11/14/24 08:35 Midodrine 5 Mg Tablet PO 12/13/24 13:59 TID PRN SBP below 100 Multivitamins/Minerals 15 ml 11/14/24 09:00 11/15/24 09:44 Multivitamin 15 Ml Udc PO 12/14/24 08:59 15 ml QDAY BETO Administration Ondansetron HCl 4 mg 11/03/24 15:32 Ondansetron Inj 2 Mg/Ml Inj 2 Ml IVP 12/03/24 15:31 Q6H PRN NAUSEA OR VOMITING Protocol Pantoprazole Sodium 40 mg 11/14/24 09:00 11/15/24 09:44 Pantoprazole 40 Mg Tablet PO 12/14/24 08:59 40 mg BID BETO Administration Sennosides 1 tab 11/04/24 09:00 11/15/24 09:45 Senna Tablet PO 12/04/24 08:59 Not Given QDAY BETO Protocol Sodium Chloride 3 ml 11/03/24 10:58 Sodium Chloride Rt Anastacia 0.9% 3 Ml Nebu INH 12/03/24 10:57 PRN PRN SOLN Thiamine HCl 100 mg 11/14/24 09:00 11/15/24 09:44 Thiamine 100 Mg Tablet PO 12/14/24 08:59 100 mg QDAY BETO Administration Plan The patient is a 49-year-old male with significant past medical history of esophageal cancer currently on remission, and hypertension presented to ED with chief complaint of acute SOB and generalized weakness is currently being treated for septic shock, Takotsubo syndrome complicated by sigmoid interventricular septum further leading to tachycardia and NSTEMI type II. #Acute encephalopathy, improved Likely multifactorial 2/2 #Alcohold withdrawal, and #Demylinating disease pattern 2/2 #Alcohol abuse disorder Patient presented with generalized weakness, later required intubation in the setting of aspiration pneumonia and septic shock. However, the patient has not been tolerating spontaneous breathing trials. BL UE weakness was there so MRI brain was done that revealed punctate foci increased signal in the frontal parietal white matter, demyelinating disease pattern. -Management deferred to primary hospitalist team #Abnormal EKG, likely 2/2 #Takotsubo syndrome vs LAD, complicated by #Sigmoid interventricular septum, possibly leading to #Moderate to severe eccentric MR, leading to #Moderate to severe PAH #HFrEF with apical akinesis EKG was significant for sinus tachycardia with deep symmetric T wave inversion in lateral leads V4 to V6, and inverted T waves in lead I and aVL. TTE on 11/03/2024 revealed: Normal LV size and moderate LV systolic dysfunction with an EF of 35 to 40%. Apical akinesis with hypokinesis of the mid to apical anterior, anterolateral and apical septal segments indicating possible Takotsubo syndrome versus LAD involvement. RV Normal in size and function. 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 Severe LA dilatation. Trace AI Moderate TR with mild RA dilatation. No Pericardial Effusion. IVC not well-visualized. Repeat limited TTE on 11/04/2024 revealed: Normal LV size and mildly decreased LV systolic function with an EF of around 40 to 45%. EF improved from yesterday. Hypokinesis of the mid to apical anterior and anterolateral and apical segments appear improved. Apical akinesis still noted. Sigmoid septum noted with LVOT obstruction leading to moderate to severe eccentric MR directed anteriorly. Gradient measurement not accurate due to contamination with MR jet. Normal RV size and function. No pericardial effusion -As the patient has sigmoid interventricular septum, and recent stressor likely leading to Takotsubo syndrome, leading to tachycardia of the base of left ventricle, which is further pulling in mitral valve leading to MR resulting with moderate to severe PAH. -Volume status is critical, to maintain euvolemia, as hypovolemia will cause decrease venous return, resulting as compensatory tachycardia of upper left ventricle leading to further MR, with increased pulmonary arterial pressure and shunt reversal. On the other hand, if there is hypervolemia leading to increased venous return, will complicate MR and increased pulmonary artery pressure. -Continue on metoprolol XL 25 daily -Continue with aspirin 81 Mg daily, atorvastatin 40 Mg daily at night, ferric gluconate 125 Mg IV daily, folic acid 1 mg daily, metoprolol succinate 25 Mg daily, midodrine 5 Mg 3 times daily, and thiamine 100 Mg daily. -Ordered limited TTE for reevaluation of LVEF- 11/14/2024- Limited TTE - Normal LV size and function. Mild LVH. Estimated EF at 60-65 %. Sigmoid septum noted. Grade 1 diastolic dysfunction. Normal RV size and function. RVSP mild to moderately elevated around 35 to 40 mmHg. Mild to moderate eccentric MR. Improved ABBI and peak resting gradient is around 40 mmHg much improved than on admission which was around 80-100 mmHg. Moderate aortic valve sclerosis without any clear evidence of stenosis. Mild TR Mildly dilated LA and IVC not well-visualized. - Will plan left and right heart cardiac catheterization on coming Saturday or Saturday prior to discharge when hemodynamically stable, but will be decided after limited echo results. #Anemia Likely multifactorial in the setting of nutritional deficiency along with iron, vitamin B12 and folic acid deficiency MCV is elevated at 99. Given his severe alcohol abuse patient is probably B12 as well as folate deficient. Patient would benefit from replacement of iron and B12 and folate which will eventually help anemia long-term and improve his tachycardia which would help with his LVOT obstruction and ABBI along with improvement of sepsis and alcohol withdrawal syndrome - Recommended IV iron infusion, vitamin B12 and folic acid #Cirrhosis #Dilated esophageal varices #Hypertensive portal gastropathy 2/2 alcohol abuse disorder -GI Dr. Louis recommended octreotide drip for 5 days. #Acute hypoxic respiratory failure, improving #Septic shock, improved #Aspiration pneumonia, improving #Severe lactic acidosis, imporved Currently, the patient is intubated but saturating on 21% FiO2. Initially, the patient presented with blood pressure of 81/51, pulse 127, RR 40, and white count 33.8 meeting 3/4 SIRS criteria, chest x-ray significant for right sided middle and lower lobe pneumonia, CT chest abdomen and pelvis revealing right middle and lower lobe pneumonia, and left lower lobe pneumonia, and lactic acid level of 16, with endorgan failure as acute hypoxic respiratory failure requiring intubation. Patient received 2.5 L of bolus IV fluid Unable to wean off of mechanical ventilation and was following commands, but BL UE weakness was there so MRI brain was done that revealed: Punctate foci increased signal in the frontal parietal white matter, demyelinating disease pattern - Continue with aggressive IV antibiotics - Blood and urine culture sent, negative so far. - IgM for coccidiomycosis, negative #NSTEMI type II, improved Likely multifactorial secondary to septic shock, Takotsubo syndrome, sigmoid interventricular septum leading to MR. No significant risk factor for STEMI, except for hypertension, as patient denies smoking or illicit drug use, and lipid panel was significant for LDL 39 and HDL 53. EKG unremarkable for STEMI Pt denied any chest pain - Heparin drip stopped - Possibly, Left and right heart cardiac catheterization on coming Saturday or Saturday, but will be decided after limited echo results. - Aspirin 81 Mg daily - Atorvastatin 40 Mg daily at night Thank you for cardiology consultation. We really appreciate for the opportunity to participate in this patient care. Cardiology team will continue to follow-up on this patient. The patient's management plan was discussed with my attending physician MD Jeanmarie Montes, PGY2
[2024-11-15] MEDS: ATORVASTATIN CALCIUM 20 MG TABLET 40 MG PO (20:12)
--- NOTE | 2024-11-15 22:49 | PD.NEUROPROG ---
Documentation for date of: 11/15/24 Subjective Subjective Interval history: Patient was seen in telemetry today. No new symptoms reported. He is gradually improving and his strength balance and gait impairment Exam - Neurology Vital Signs Temp Pulse Resp BP Pulse Ox O2 Del Method O2 Flow Rate 98.7 F 97 21 H 111/71 95 Room Air 3 11/15/24 20:00 11/15/24 20:00 11/15/24 20:00 11/15/24 20:00 11/15/24 20:00 11/15/24 20:00 11/13/24 18:00 FiO2 96 11/12/24 19:13 Narrative Exam GENERAL APPEARANCE: Well hydrated, well-nourished in no acute distress. HEENT: Normocephalic, atraumatic, extraocular movements intact. Pupils: Equal reacting to light and accommodation NECK: Supple, no JVD or bruits. CARDIOVASULAR: Heart: S1, S2 heard, regular without S3-S4 or murmur no rubs or gallops. LUNGS/CHEST: Clear to auscultation bilaterally. No rails, rhonchi, or wheezing. Normal inspection. ABDOMEN: Soft, nontender, with normal bowel sounds. No pulsatile masses. No rebound, rigidity, or guarding. Normal inspection and palpation. EXTREMITIES: Normal inspection and palpation. No edema, clubbing or cyanosis. SKIN: Warm and dry without rashes. Normal inspection. MUSCULOSKELETAL: No cervical, thoracic, lumbar or midline bony tenderness. Normal inspection. NEURO: Alert, awake and oriented x3. Cranial nerves: II through XII grossly intact. Speech and language: Normal with no dysarthria or dysphasia. Motor system: Tone and bulk: Normal: Strength: 5 out of 5 in all 4 extremities; No pronator drift noted. Deep tendon reflexes: 2+ bilaterally symmetrical. Plantar reflex: Downgoing bilaterally. Sensory system: Intact to all modalities of sensation bilaterally. Coordination: Intact to [id number] and [id number] test bilaterally. No ataxia, no dysmetria, or dysdiadochokinesia noted. No intention tremors noted. Gait: Not tested. No signs of meningeal irritation noted. PSYCHIATRIC: Normal mood and affect. Objective Labs 11/15/24 04:46 11/15/24 04:46 Labs: Laboratory Results - last 24 hr 11/15/24 11/15/24 04:46 09:30 WBC 17.3 H RBC 2.52 L Hgb 7.9 L Hct 24.6 L MCV 98 MCH 31.3 MCHC 32.1 RDW Std Deviation 71.3 H Plt Count 363 D Neut % (Auto) 80 Lymph % (Auto) 10 [place] % (Auto) 6 Eos % (Auto) 2 Baso % (Auto) 1 Neut # (Auto) 13.9 H Lymph # (Auto) 1.8 [place] # (Auto) 1.0 H Eos # (Auto) 0.4 Baso # (Auto) 0.1 Immature Gran # (Auto) 0.16 H Absolute Nucleated RBC 0.02 H Immature Gran % 1 H Nucleated RBC % 0 Sodium 137 Potassium 4.4 D Chloride 103 Carbon Dioxide 24.3 Anion Gap 10 BUN 10 Creatinine 0.8 Estim Creat Clear Calc 79.4 eGFR > 60 BUN/Creatinine Ratio 13 Glucose 116 H Calculated Osmolality 273 L Calcium 8.1 L Corrected Calcium 8.8 Phosphorus 2.7 Magnesium 1.9 Total Bilirubin 0.5 AST 109 H ALT 81 H Alkaline Phosphatase 156 H Ammonia < 10 L Total Protein 5.9 Albumin 3.1 L Globulin 2.8 Albumin/Globulin Ratio 1.1 L ABG Interpretation ABG results: 11/03/24 11/03/24 11/03/24 11:20 14:11 17:06 ABG pH 7.35 7.34 L 7.20 L D ABG pCO2 21 L 20 L 45 D ABG pO2 193 H 82 L D 78 L ABG HCO3 12 L 11 L 16 L ABG O2 Saturation 100 H 96 91 ABG Base Excess -12 L -14 L -12 L VBG pH VBG pCO2 VBG pO2 VBG Base Excess 11/04/24 11/04/24 11/04/24 00:00 04:29 05:15 ABG pH 7.50 H D ABG pCO2 30 L D ABG pO2 109 H D ABG HCO3 23 ABG O2 Saturation 100 H ABG Base Excess 1 VBG pH 7.43 7.52 VBG pCO2 35 L 27 L VBG pO2 43 57 VBG Base Excess -1 0 11/05/24 11/06/24 11/06/24 04:49 03:40 21:45 ABG pH 7.48 H 7.41 ABG pCO2 35 43 ABG pO2 74 L D 108 D ABG HCO3 26 27 H ABG O2 Saturation 96 99 H ABG Base Excess 3 2 VBG pH 7.49 VBG pCO2 39 D VBG pO2 39 VBG Base Excess 6 H 11/07/24 11/08/24 11/09/24 05:59 04:19 04:11 ABG pH 7.49 H 7.48 H 7.44 ABG pCO2 39 38 40 ABG pO2 71 L D 77 L 63 L ABG HCO3 29 H 29 H 27 H ABG O2 Saturation 96 97 93 ABG Base Excess 6 H 5 H 3 VBG pH VBG pCO2 VBG pO2 VBG Base Excess 11/10/24 07:02 ABG pH 7.45 ABG pCO2 42 ABG pO2 83 D ABG HCO3 29 H ABG O2 Saturation 98 ABG Base Excess 5 H VBG pH VBG pCO2 VBG pO2 VBG Base Excess Assessment & Plan Additional Assessment & Plan Additional Plan: # Generalized weakness, improving # Acute encephalopathy,Resolved CK WNL 41 TTE showed moderate left ventricle systolic dysfunction, severe mitral regurgitation, some LVOT obstruction. C/F Takotsubo cardiomyopathy. CT head without contrast 11/07: Negative for acute hemorrhage, midline shift, mass effect. Diffuse cortical atrophy. MRI brain without contrast 11/09: Punctate foci site in frontal parietal b/l white matter on FLAIR, non-specific, chronic, NOT suggestive of demyelinating diseae Acute encephalopathy DDX: infectious (PNA), hypoxia, alcohol withdrawal, hepatic encephalopathy, shock (septic/distributive vs hypovolemic), metabolic (lactic acidosis) Weakness DDX: alcohol-related polyneuropathy, inflammatory myopathy, deconditioning, nutritional/vitamin deficiency Plan: - EEG showed slowing consistent with metabolic/degenerative/vascular - No need for further workup as patient presentation improving - Continue thiamine, folate - Pending AChR Ab (myasthenia gravis) - If weakness persist even after physical therapy, we will consider doing EMG nerve conduction study of both upper and lower extremities as an outpatient # Alcohol withdrawal, resolved Hx: EtOH use disorder, drinks at least 2 large bottles of hard liquor along with beer on a daily basis Patient given phenobarbital, Versed, chlordiazepoxide. Required high levels of sedation for agitation while intubated Plan: - Management per primary team
[2024-11-16] VITALS (21 sets, daily range): BP systolic 104–142; BP diastolic 32–80; PULSE 81–108; RESP 11–96; TEMP 36.4–37.2; O2SAT 92–100; BMI 23.1
[2024-11-16 05:11] LABS: Basophils # (Auto) 0.1 Thou/mm3 (0.0-0.2); Basophils % (Auto) 1 % (0-2.5); Eosinophils % (Auto) 2 % (0-10); Mean Corpuscular Volume 96 fL (80-100); Monocytes % (Auto) 8 % (0-12); Nucleated Red Blood Cell # 0.00 Thou/mm3 (0.00-0.00); Nucleated Red Blood Cell % 0 /100 WBC (0)
[2024-11-16 05:17] LABS: Eosinophils # (Auto) 0.3 Thou/mm3 (0.0-0.5); Hematocrit 24.9 % (41.0-53.0); Immature Granulocytes Auto 0.20 Thou/mm3 (0.00-0.00); Lymphocytes # (Auto) 2.0 Thou/mm3 (1.0-4.8); Lymphocytes % (Auto) 12 % (10-50); Mean Corpuscular HGB Conc 32.5 g/dl (31.0-37.0); Mean Corpuscular Hemoglobin 31.2 pg (25.0-35.0); Monocytes # (Auto) 1.3 Thou/mm3 (0.0-0.8); Neutrophils # (Auto) 12.5 Thou/mm3 (1.8-7.7); Neutrophils % (Auto) 76 % (37-80); Platelet Count 306 Thou/mm3 (140-440); RDW Standard Deviation 70.8 fL (35.1-43.9); Red Blood Count 2.60 Miln/mm3 (4.50-5.90); White Blood Count 16.4 Thou/mm3 (3.8-10.6)
[2024-11-16 05:19] LABS: Hemoglobin 8.1 g/dL (13.5-16.0)
[2024-11-16 05:49] LABS: Alanine Aminotransferase 71 U/L (10-49); Albumin, Serum 3.0 gm/dL (3.5-5.0); Albumin/Globulin Ratio 1.2 (1.2-2.2); Alkaline Phosphatase 156 U/L (46-116); Anion Gap 8 (7-16); Aspartate Amino Transferase 89 U/L (0-34); BUN/Creatinine Ratio 14 Ratio (12-20); Bilirubin,Total 0.4 mg/dL (0.3-1.2); Blood Urea Nitrogen 11 mg/dL (9-23); Calcium 8.1 mg/dL (8.3-10.6); Calcium (Corrected) 8.9 mg/dL (8.5-10.1); Carbon Dioxide 23.6 mMol/L (20.0-31.0); Chloride 104 mMol/L (98-107); Creatinine (Component) 0.8 mg/dL (0.6-1.3); Estimated Creatinine Clearance 80.8 mL/min (>60); Globulin 2.5 gm/dL (2.3-3.5); Glucose 98 mg/dL (74-106); Magnesium 1.8 mg/dL (1.6-2.6); Osmolality,Calculated 271 (275-295); Phosphorous 3.0 mg/dL (2.4-5.1); Potassium 5.1 mMol/L (3.4-5.1); Sodium 136 mMol/L (136-145); Total Protein 5.5 gm/dL (5.7-8.2); eGFR > 60 See Note
[2024-11-16 07:45] LABS: Acetylcholine Rec Bind Ab* <0.30 nmol/L
[2024-11-16] MEDS: THIAMINE 100 MG TABLET PO (08:30)
[2024-11-16] MEDS: FOLIC ACID 1 MG TABLET PO (08:30)
[2024-11-16] MEDS: ASPIRIN 81 MG CHEW PO (08:30)
[2024-11-16] MEDS: MULTIVITAMIN 15 ML UDC PO (08:30)
[2024-11-16] MEDS: PANTOPRAZOLE 40 MG TABLET PO ×2 (08:30→20:32)
[2024-11-16] MEDS: FERRIC SOD GLUC INJ 125 MG in SODIUM CHLORIDE 0.9% 100 ML 110 MG IV (09:19)
[2024-11-16] MEDS: Magnesium Sulfate 2 GM Ivpb 2 GM/50 ML BAG IV (10:21)
--- NOTE | 2024-11-16 11:50 | ESPR_ITS ---
<Statement entered by Rosalinda Alcantara MD - 11/17/24 12:05> I have reviewed the note and agree with the resident's assessment & plan with exceptions as below. I have personally reviewed labs, imaging, home meds/prior records, examined the patient, formulated and discussed management plan with the IM team. Pt examined at bedside today. Pt continues to improve, pt to get cardiac cath today by cardiology. Will follow up with further recommendations with cardiology. This will provide information for possible underlying ischemic heart disease as well and give more information on if pt did experience takosubo cardiomyopathy. Repeat hematology and chemistry in AM. Rosalinda Alcantara, PGY-2 Internal Medicine Documentation for date of: 11/16/24 Subjective Subjective Interval history: Patient seen at bedside. No acute overnight events. Patient not complaining of any shortness of breath, chest pain, nausea, vomiting, abdominal pain. Exam Vital Signs Temp Pulse Resp BP Pulse Ox O2 Del Method O2 Flow Rate 98.2 F 100 18 127/76 93 L Room Air 3 11/16/24 08:00 11/16/24 08:30 11/16/24 08:00 11/16/24 08:30 11/16/24 08:00 11/16/24 08:00 11/13/24 18:00 FiO2 96 11/12/24 19:13 Narrative Exam General: Not in acute distress, lethargic, cachectic, temporal wasting. Neurologic: GCS 13, following commands. HEENT: Normocephalic, atraumatic, mucous membranes dry. Pupils reactive to light. Heart: RRR, systolic murmur at the mitral listening post left fifth intercostal space sternal border. Lungs: Pectus excavatum, clear to auscultation bilaterally Abdomen: Right sided reducible inguinal hernia. Right lower quadrant bruise approximately 5 cm long at the site of heparin SQ inj. Extremities: No edema in the lower extremities bilaterally. 2+ radial and dorsalis pedis pulses bilaterally. Rt knee effusions. Skin: Cool. Dry. No rash. Objective Labs 11/17/24 05:49 11/17/24 05:49 Labs: Laboratory Results - last 24 hr 11/11/24 11/16/24 05:00 04:07 WBC 16.4 H RBC 2.60 L Hgb 8.1 L Hct 24.9 L MCV 96 MCH 31.2 MCHC 32.5 RDW Std Deviation 70.8 H Plt Count 306 D Neut % (Auto) 76 Lymph % (Auto) 12 [place] % (Auto) 8 Eos % (Auto) 2 Baso % (Auto) 1 Neut # (Auto) 12.5 H Lymph # (Auto) 2.0 [place] # (Auto) 1.3 H Eos # (Auto) 0.3 Baso # (Auto) 0.1 Immature Gran # (Auto) 0.20 H Absolute Nucleated RBC 0.00 Immature Gran % 1 H Nucleated RBC % 0 Sodium 136 Potassium 5.1 D Chloride 104 Carbon Dioxide 23.6 Anion Gap 8 BUN 11 Creatinine 0.8 Estim Creat Clear Calc 80.8 eGFR > 60 BUN/Creatinine Ratio 14 Glucose 98 Calculated Osmolality 271 L Calcium 8.1 L Corrected Calcium 8.9 Phosphorus 3.0 Magnesium 1.8 Total Bilirubin 0.4 AST 89 H ALT 71 H Alkaline Phosphatase 156 H Total Protein 5.5 L Albumin 3.0 L Globulin 2.5 Albumin/Globulin Ratio 1.2 Acetylchol Rcpt Bind Ab <0.30 ABG Interpretation ABG results: 11/03/24 11/03/24 11/03/24 11:20 14:11 17:06 ABG pH 7.35 7.34 L 7.20 L D ABG pCO2 21 L 20 L 45 D ABG pO2 193 H 82 L D 78 L ABG HCO3 12 L 11 L 16 L ABG O2 Saturation 100 H 96 91 ABG Base Excess -12 L -14 L -12 L VBG pH VBG pCO2 VBG pO2 VBG Base Excess 11/04/24 11/04/24 11/04/24 00:00 04:29 05:15 ABG pH 7.50 H D ABG pCO2 30 L D ABG pO2 109 H D ABG HCO3 23 ABG O2 Saturation 100 H ABG Base Excess 1 VBG pH 7.43 7.52 VBG pCO2 35 L 27 L VBG pO2 43 57 VBG Base Excess -1 0 11/05/24 11/06/24 11/06/24 04:49 03:40 21:45 ABG pH 7.48 H 7.41 ABG pCO2 35 43 ABG pO2 74 L D 108 D ABG HCO3 26 27 H ABG O2 Saturation 96 99 H ABG Base Excess 3 2 VBG pH 7.49 VBG pCO2 39 D VBG pO2 39 VBG Base Excess 6 H 11/07/24 11/08/24 11/09/24 05:59 04:19 04:11 ABG pH 7.49 H 7.48 H 7.44 ABG pCO2 39 38 40 ABG pO2 71 L D 77 L 63 L ABG HCO3 29 H 29 H 27 H ABG O2 Saturation 96 97 93 ABG Base Excess 6 H 5 H 3 VBG pH VBG pCO2 VBG pO2 VBG Base Excess 11/10/24 07:02 ABG pH 7.45 ABG pCO2 42 ABG pO2 83 D ABG HCO3 29 H ABG O2 Saturation 98 ABG Base Excess 5 H VBG pH VBG pCO2 VBG pO2 VBG Base Excess Quality Measures Quality Measures sepsis Current suspected stage: ruled out Possible source: pulmonary Blood cultures ordered: completed in ED Antibiotic ordered: No Assessment & Plan Assessment Current Active Medications: Generic Name Dose Route Start Last Admin Trade Name Freq PRN Reason Stop Dose Admin Acetaminophen 325 mg 11/05/24 09:48 Acetaminophen 325 Mg Tablet PO 12/03/24 15:31 Q6H PRN Fever >101.5 Albuterol/Ipratropium 3 ml 11/13/24 10:30 Albuterol/Ipratropium (Duoneb) Rt Anastacia 3 Ml Nebu INH 12/11/24 10:59 Q4HRRT PRN wheezing Aspirin 81 mg 11/14/24 09:00 11/16/24 08:30 Aspirin 81 Mg Chew PO 12/14/24 08:59 81 mg QDAY BETO Administration Atorvastatin Calcium 40 mg 11/13/24 21:00 11/15/24 20:12 Atorvastatin Calcium 20 Mg Tablet PO 12/13/24 20:59 40 mg HS BETO Administration Carvedilol 3.125 mg 11/14/24 11:00 11/16/24 08:30 Carvedilol 3.125 Mg Tablet PO 12/14/24 10:59 3.125 mg BIDWM BETO Administration Dextrose 25 ml 11/11/24 16:45 Dextrose 50%-Water Inj 50 Ml Syringe IV 12/11/24 16:44 Q15MIN PRN BG 50-70 responsive npo pt Dextrose 50 ml 11/11/24 16:45 Dextrose 50%-Water Inj 50 Ml Syringe IV 12/11/24 16:44 Q15MIN PRN BG <50 OR BG <70 & pt unresponsive Folic Acid 1 mg 11/14/24 09:00 11/16/24 08:30 Folic Acid 1 Mg Tablet PO 12/14/24 08:59 1 mg QDAY BETO Administration Glucagon 1 mg 11/11/24 16:45 Glucagon Inj 1 Mg Vial IM Q15MIN PRN BG <70, and no IV access Ferric Sodium Gluconate 125 mg 110 mls @ 110 mls/hr 11/08/24 17:15 11/16/24 10:20 / Sodium Chloride IV 12/08/24 17:14 Infused QDAY BETO Infusion Insulin Human Lispro 0 unit 11/12/24 17:15 11/16/24 08:10 Insulin Lispro (Admelog) 1 Unit/0.01 Ml Unit SC 12/12/24 17:14 Not Given ACHS [facility] Protocol Lactulose 20 gm 11/13/24 14:00 11/16/24 05:06 Lactulose Syrup 20 Gm/30 Ml Udc PO 12/13/24 13:59 Not Given TID BETO Protocol Midodrine 5 mg 11/14/24 08:35 Midodrine 5 Mg Tablet PO 12/13/24 13:59 TID PRN SBP below 100 Multivitamins/Minerals 15 ml 11/14/24 09:00 11/16/24 08:30 Multivitamin 15 Ml Udc PO 12/14/24 08:59 15 ml QDAY BETO Administration Ondansetron HCl 4 mg 11/03/24 15:32 Ondansetron Inj 2 Mg/Ml Inj 2 Ml IVP 12/03/24 15:31 Q6H PRN NAUSEA OR VOMITING Protocol Pantoprazole Sodium 40 mg 11/14/24 09:00 11/16/24 08:30 Pantoprazole 40 Mg Tablet PO 12/14/24 08:59 40 mg BID BETO Administration Sennosides 1 tab 11/04/24 09:00 11/16/24 08:30 Senna Tablet PO 12/04/24 08:59 1 tab QDAY BETO Administration Protocol Sodium Chloride 3 ml 11/03/24 10:58 Sodium Chloride Rt Anastacia 0.9% 3 Ml Nebu INH 12/03/24 10:57 PRN PRN SOLN Thiamine HCl 100 mg 11/14/24 09:00 11/16/24 08:30 Thiamine 100 Mg Tablet PO 12/14/24 08:59 100 mg QDAY BETO Administration Plan Assessment: 49-year-old male with past medical history of hypertension and personal history of esophageal cancer status post-treatment in remission who presented to ED with a chief complaint of weakness and shortness of breath. Admitted for alcohol withdrawal management. #Acute encephalopathy ? resolved #Generalized weakness ? improving #Demyelinating disease pattern on MRI - Patient is cachectic with temporal wasting, and BMI of 18.3 kg/m. - Consider hepatic/metabolic encephalopathy in the setting of alcohol use, vs infectious, vs alcohol withdrawal, vs vs anoxic (distributive/septic shock vs hypovolemic). - Weakness Ddx: alcohol-related polyneuropathy vs inflammatory myopathy vs deconditioning vs nutritional/vit deficiency. - Imaging showed irregular liver contour; Ammonia was 78 on presentation. has LGIB. - MRI of the head showed punctate foci with increased signal in the frontal parietal white matter, demyelinating disease pattern possible. Low likelihood of esophageal cancer metastasis. - EEG is abnormal with intermittent slowing consistent with metabolic/degenerative or vascular origin. However, no epileptiform discharges noted. NH4+ <10 11/15 Plan: - Thiamine, folate and multivitamin - Lactulose 20 gm p.o. 3 times daily, goal of 3-4 BM per day - Rifxamin 550mg BID - Neurology consulted, pending acetylcholine receptor antibody (myasthenia gravis) - Neurology recommends outpatient EMG assessment if pt shows poor progress with PT. - F/P with neurology outpatinet for determining prognosis. #NSTEMI of undetermined cause, resolved - Trop i peak 4.326, downtrended subsequntly. 11/16/24 cardiac cath procedure Summary/findings: 1. NSTEMI II: LHC showed normal coronaries without any angiographically significant obstruction and few luminal irregularities. 2. LVEF was 55-60%. 3. LVEDP midly elevated at 24 mm hg. There was significant transvalvular aortic gradient of 18-20 mmHg. 4. Normal elevated right heart pressures with mean RA of 5 mm hg, mean PA of 19 mmhg and mean PCWP at 12 mm Hg. Plan: ?Cardiology following, follow recs - ASA 81mg, atorvastatin 40mg Qday ?Aggressive medical management and aggressive risk factor modification #Suspicion of Takotsubo cardiomyopathy #Possible LVOT obstruection 2/2 ABBI - Echo 11/03/2024 showed ejection fraction 35 to 40%, decreased apical motion - TTE: moderate Lt ventricular systolic dysfunction, severe MR, some LVOT obstruction - Appears intravascularly dry evidenced by hypernatremia and lack of edema on physical exam Plan: - Switched metoprolol succinate 25 mg to carvedilol 3.125mg bidwm for secondary benefit to esophageal varices 2/2 portal HTN - Midodrine 5 mg p.o. 3 times daily PRN with elevating BP - Cardiology consulted, appreciate recommendations - TTE for reevaluation of LVEF (cardio, 11/14) - Limited TTE - Normal LV size and function. Mild LVH. Estimated EF at 60-65 %. Sigmoid septum noted. Grade 1 diastolic dysfunction. Normal RV size and function. RVSP mild to moderately elevated around 35 to 40 mmHg. Mild to moderate eccentric MR. Improved ABBI and peak resting gradient is around 40 mmHg Much improved than on admission which was around 80-100 mmHg. Moderate aortic valve sclerosis without any clear evidence of stenosis. Mild TR Mildly dilated LA and IVC not well-visualized. #Pneumonia #Leukocytosis #Acute phase reaction to stress dose steroids Differential diagnosis: - Consider aspiration pneumonia in the presence of dysphagia due to history of esophageal cancer, vs hospital-acquired pneumonia vs atelectasis. Diagnostic workup: - Chest x-ray significant for bibasilar infiltrates - Initial ABG shows pH 7.35, pCO2 21, pO2 193, bicarb 12, patient on high flow nasal cannula in ED, significantly tachypneic, increased work of breathing, respiratory rate in 40s, accessory muscle use noted. - ABG 11/11/2024 pH 7.45, CO2 42, PaO2 83, HCO3 29 - Patient denies any sick contacts, although CTA shows significant right-sided pneumonia and left base pneumonia - Bedside flu, COVID negative, cocci IgM negative, MRSA nasal screen negative, Blood cultures negative -Thick excessive secretions and cough improved, CTAB on PE 11/13 -WBC 21.8, 17.5, 17/3 (11/15) Plan: - Completed treatment with Zosyn and ceftriaxone - Chest PT - DuoNebs Q4 PRN, albuterol/ipratropium Q4 PRN, Mucinex PRN - Follow CBC #Decompensated cirrhosis 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 #Transaminitis #Suspected hepatic encephalopathy #GI bleed workup #Melena Diagnostic workup: - CTA abdomen showed evidence of cirrhosis - Per the patient's family member the patient consumes 2 bottles of hard alcohol on a daily basis in addition to beer, Hepatitis panel negative - CT chest abdomen pelvis showed cirrhosis. Liver ultrasound shows ascites. - AST 66 ALT 73 11/11/2024, has been downtrending; transaminitis likely 2/2 hypoxic liver injury - MELD score of 7, 1.9% estimated 3-month mortality - Child-Pug Score: 8 - EGD 11/07/2024 showed grade 1 esophageal varices, 2+ esophageal varices not large enough for band ligation Plan: - Continue folate and thiamine - Continue lactulose 20 GM p.o. 3 times daily, titrate to 4-5 bowel movements - Continue Protonix twice daily - monitor hemoglobin daily #Esophageal cancer, in remission As reported by the patient. Differential diagnosis: Patient is status post esophagectomy Diagnostic workup: - Patient reported self history of esophageal cancer reports completed treatment heart disease in remission - History of esophagectomy, there is suspicion of underlying dysphagia Follow-up: - Passed swallow evaluation AM 11/13 - Continue tube feeds #Large right inguinal hernia #Dilated bowel loops Differential diagnosis: Incarcerated hernia. Diagnostic workup: - On physical exam hernia is reducible, low suspicion of incarceration - CTA abdomen pelvis shows large right inguinal hernia noted on imaging as well, no radiological signs of incarceration Treatment: - General Surgery consulted, no surgical intervention needed in this admission, can follow up outpatient #Normocytic normochromic anemia versus iron deficiency anemia Differential diagnosis: Nutritional deficiency, in the setting of sepsis, GI bleed, low suspicion of hemolysis Diagnostic workup: - Hemoglobin 8.1 on presentation - Hemoglobin 8.1 hematocrit 24.9 11/16/2024 - Iron level 19 on 11/07/2024 Treatment: - Ferric Sod Glut 125 mg IV daily - Continue folic acid and multivitamin #Hypernatremia, resolved Differential diagnosis: Hypovolemia - Was given free water flushes Diagnostic workup: - Na 152 11/11/2024 - Pt free water deficit calculated to be 2.64L - Na 145 11/13/2024 -completion of treatment Plan: -Monitor sodium levels #Alcohol withdrawal (resolved) # Distributive shock, secondary to sepsis, septic shock secondary to aspiration pneumonia, resolved #Acute hypoxic respiratory failure secondary to pneumonia, respiratory failure in setting of shock (resolved) #Status post extubation 11/10/2024 #Hypokalemia (Resolved) #Lactic acidosis, (Resolved) #High anion gap metabolic acidosis, (Resolved) #Thrombocytosis, (Resolved) Health maintenance: DVT prophylaxis: SCDs GI prophylaxis: IV Protonix twice a day Diet: Routine Tubes: Lines: Peripheral IV, right IJ triple-lumen Code status: Full code Case discussed with my attending Dr. Iraheta, and senior resident, Dr. Quinton Vargas MD PGY-1 Attending Provider Attestation/Addendum I attest that I was physically present for the evaluation, physical examination, lab and imaging review of the patient with the residents. I discussed the case with the residents and agree with the findings and plans of care as documented above. At bedside today, patient appears comfortable, denies any new complaints. Saturating well on room air. Lungs are clear to auscultate. Continues to be on aspirin, atorvastatin, iron supplement, metoprolol. Hemoglobin remained stable. Rest of the vitals are stable as well. Patient is planned for cardiac catheterization today with cardiology. Currently n.p.o. for the procedure. Bryson Iraheta MD
--- NOTE | 2024-11-16 14:03 | PD.CARDCATH ---
Cardiac Cath Procedure Procedure Name Date of procedure: 11/16/24 SPRINKLER WORKER: Colin Brandt MD PROCEDURE PERFORMED: 1. Left heart and right heart cardiac catheterization including right, left coronary angiograms and left ventriculogram - CPT 64768 2. Ultrasound-guided access of the right radial artery and right femoral vein - CPT 28725 3. Conscious sedation for 30 minutes - CPT 92702 Procedure Narrative HISTORY AND INDICATIONS: The patient is a 49-year-old male with significant past medical history of esophageal cancer currently on remission, and hypertension presented to ED with chief complaint of acute SOB and generalized weakness is currently being treated for septic shock, Takotsubo syndrome complicated by sigmoid interventricular septum further leading to tachycardia and NSTEMI type II. Patient was brought in for an urgent cardiac catheterization given the echo findings with new CHF as well ass troponin elevation. Discussed with patient risks, benefits and alternatives of performing left with coronary angiogram including the risks of bleeding, heart rate, stroke and with the procedure. Patient understands the risks and is willing to undergo the procedure. Consent provided for the same. H&P updated and consent was signed prior to the procedure. DESCRIPTION OF PROCEDURE: The patient was brought to the cardiac catheterization lab and all asceptic precautions were followed. Patient was given 1 Mg of Versed and 50 mcg of fentanyl for moderate conscious sedation. 2 mL of lidocaine was given in the right wrist. The right radial artery was accessed via the ultrasound guidance as well as micropuncture technique. A 6 [place] glide sheath was introduced. Patient already had right antecubital vein access placed. Right antecubital vein access was cleaned appropriately and all aseptic precautions was followed and exchanged into a micropuncture catheter with the help of a micropuncture wire and then introduced and a 7 [place] sheath into the antecubital vein access with the help of a J-wire. A 7 [place] tuscarora catheter was used to direct catheter into the right atrium with inflated balloon. A 10 ml of lidocaine was then injected in the right femoral area and right femoral vein vein was accessed with ultrasound guidance and micropuncture technique. A 7 nepales[place] femoral sheath was used. A 7 [place] Madison-Peter catheter was used with a [place] wire to direct into the right atrium with inflated balloon. Serial measurements of right atrium, right ventricle, pulmonary artery and pulmonary capillary wedge were taken severely with normal respiration as well as at end expiration as noted below. We then used a 6 [place] TIG 4 catheter to perform the left and right coronary angiogram as well as a left ventriculogram which showed the following findings. LHC findings: 1. Left ventricular ejection fraction was 55-60% without any regional wall motion abnormalities. LVEDP was normal at 24 mmHg. There was significant transvalvular aortic gradient of 18-20 mmHg. 2. Right dominant circulation left main artery is a large-caliber vessel without any significant stenosis. 3. LAD is a large sized artery with a medium size diagonal and does not show any significant disease. mild 20% disease of ostial diagonal 1 4. LCx is a large sized artery with medium OM1 and small OM2 without any significant disease. 5. RCA is a large artery with Medium RPDA and RPL without any significant disease. RHC findings: Mean right atrial pressure was 5 mmHg. Right atrial pressure was 10/7 mmHg. Pulmonary artery pressure was 31/12 mmHg with a mean of 19 mmHg. Mean pulmonary capillary wedge pressure was 12 mmHg. TPG was 7 mmHg Pulmonary artery PA saturation was 60.3%.? Arterial saturation was 92.4% on room air. Cardiac output was 5.84 L/min and cardiac index was normal at 3.5 L/min/m? A radial band was used to achieve the hemostasis of the right radial artery access and manual hemostasis for the right antecubital vein. Patient will be monitored in the cardiac field broomer for the next 2 to 3 hours and will be sent to the telemetry floor. Patient recommended to follow-up with me in the office within 7 days after discharge. Complications: None Specimens: None Blood loss: Estimated 5 ml Summary/findings: 1. NSTEMI II: LHC showed normal coronaries without any angiographically significant obstruction and few luminal irregularities. 2. LVEF was 55-60%. 3. LVEDP midly elevated at 24 mm hg. There was significant transvalvular aortic gradient of 18-20 mmHg consistemt with LVOT obstruction secondary to sigmoid septum and ABBI. 4. Normal elevated right heart pressures with mean RA of 5 mm hg, mean PA of 19 mmhg and mean PCWP at 12 mm Hg. Recommendations: 1. Recommend aggressive medical management and aggressive risk factor modification. 2. Patient recommended not to lift more than 5 lbs for the next 7-10 days and follow up with me in my office in 7 days. Colin Brandt MD Interventional Cardiology.
--- NOTE | 2024-11-16 16:08 | PC.NURSE ---
Report given to ALEXIS Carbone. Patient A&O. VSS. Pt transferred to tele via [facility]. Dressing to right wrist clean, dry, and intact.
[2024-11-16] MEDS: LACTULOSE SYRUP 20 GM/30 ML UDC PO (16:22)
[2024-11-16 18:03] LABS: Albumin, Serum 3.4 gm/dL (3.5-5.0); Anion Gap 9 (7-16); BUN/Creatinine Ratio 13 Ratio (12-20); Blood Urea Nitrogen 10 mg/dL (9-23); Calcium 8.4 mg/dL (8.3-10.6); Calcium (Corrected) 8.9 mg/dL (8.5-10.1); Carbon Dioxide 23.7 mMol/L (20.0-31.0); Chloride 100 mMol/L (98-107); Creatinine (Component) 0.8 mg/dL (0.6-1.3); Estimated Creatinine Clearance 80.8 mL/min (>60); Glucose 147 mg/dL (74-106); Magnesium 1.8 mg/dL (1.6-2.6); Osmolality,Calculated 268 (275-295); Phosphorous 2.6 mg/dL (2.4-5.1); Potassium 4.5 mMol/L (3.4-5.1); Sodium 133 mMol/L (136-145); eGFR > 60 See Note
--- NOTE | 2024-11-16 18:10 | PD.RESPRO ---
Documentation for date of: 11/16/24 Subjective Subjective Interval history: Patient is seen and examined at bedside No acute overnight events. Denies any other complaints. Endorsed that he is doing good Labs done today is significant for leukocytosis, transaminitis -Limited TTE - Normal LV size and function. Mild LVH. Estimated EF at 60-65 %. Sigmoid septum noted. Grade 1 diastolic dysfunction. Normal RV size and function. RVSP mild to moderately elevated around 35 to 40 mmHg. Mild to moderate eccentric MR. Improved ABBI and peak resting gradient is around 40 mmHg much improved than on admission which was around 80-100 mmHg. Moderate aortic valve sclerosis without any clear evidence of stenosis. Mild TR Mildly dilated LA and IVC not well-visualized. LHC and RHC on 11/16/2024 revealed \ 1. NSTEMI II: LHC showed normal coronaries without any angiographically significant obstruction and few luminal irregularities. 2. LVEF was 55-60%. 3. LVEDP midly elevated at 24 mm hg. There was significant transvalvular aortic gradient of 18-20 mmHg. 4. Normal elevated right heart pressures with mean RA of 5 mm hg, mean PA of 19 mmhg and mean PCWP at 12 mm Hg. Recommendations: 1. Recommend aggressive medical management and aggressive risk factor modification. 2. Patient recommended not to lift more than 5 lbs for the next 7-10 days and follow up with me in my office in 7 days. -Continue with atorvastatin 40 Mg daily at night, ferric gluconate 125 Mg IV daily, folic acid 1 mg daily, metoprolol succinate increased to 50mg daily, midodrine 5 Mg 3 times daily, and thiamine 100 Mg daily. Discontinued aspirin 81 Mg daily. Exam Vital Signs Temp Pulse Resp BP Pulse Ox O2 Del Method O2 Flow Rate 98.2 F 86 20 136/32 H 95 Room Air 3 11/16/24 16:00 11/16/24 17:47 11/16/24 16:00 11/16/24 17:47 11/16/24 16:00 11/16/24 16:00 11/13/24 18:00 FiO2 96 11/12/24 19:13 Narrative Exam General: No acute distress, on oxy mask, responding well to commands, interacting with soft voice HEENT: Moist mucous membranes, oropharynx clear Neck: Supple, No masses, No JVD CVS: S1, S2 regular rate and rhythm, No murmurs, rubs or gallops Lungs: Mild wheezing throughout the lung field, improving rhonchi appreciated throughout the lung field, mild bibasilar crackles appreciated Abd: Soft, NT/ND, +BS, hepatomegaly appreciated Ext: No edema, warm and well perfused Skin: No rash Psych: Unable to obtain Objective Labs 11/17/24 05:49 11/17/24 05:49 Labs: Laboratory Results - last 24 hr 11/11/24 11/16/24 11/16/24 05:00 04:07 17:28 WBC 16.4 H RBC 2.60 L Hgb 8.1 L Hct 24.9 L MCV 96 MCH 31.2 MCHC 32.5 RDW Std Deviation 70.8 H Plt Count 306 D Neut % (Auto) 76 Lymph % (Auto) 12 [place] % (Auto) 8 Eos % (Auto) 2 Baso % (Auto) 1 Neut # (Auto) 12.5 H Lymph # (Auto) 2.0 [place] # (Auto) 1.3 H Eos # (Auto) 0.3 Baso # (Auto) 0.1 Immature Gran # (Auto) 0.20 H Absolute Nucleated RBC 0.00 Immature Gran % 1 H Nucleated RBC % 0 Sodium 136 133 L Potassium 5.1 D 4.5 D Chloride 104 100 Carbon Dioxide 23.6 23.7 Anion Gap 8 9 BUN 11 10 Creatinine 0.8 0.8 Estim Creat Clear Calc 80.8 80.8 eGFR > 60 > 60 BUN/Creatinine Ratio 14 13 Glucose 98 147 H Calculated Osmolality 271 L 268 L Calcium 8.1 L 8.4 Corrected Calcium 8.9 8.9 Phosphorus 3.0 2.6 Magnesium 1.8 1.8 Total Bilirubin 0.4 AST 89 H ALT 71 H Alkaline Phosphatase 156 H Total Protein 5.5 L Albumin 3.0 L 3.4 L Globulin 2.5 Albumin/Globulin Ratio 1.2 Acetylchol Rcpt Bind Ab <0.30 ABG Interpretation ABG results: 11/03/24 11/03/24 11/03/24 11:20 14:11 17:06 ABG pH 7.35 7.34 L 7.20 L D ABG pCO2 21 L 20 L 45 D ABG pO2 193 H 82 L D 78 L ABG HCO3 12 L 11 L 16 L ABG O2 Saturation 100 H 96 91 ABG Base Excess -12 L -14 L -12 L VBG pH VBG pCO2 VBG pO2 VBG Base Excess 11/04/24 11/04/24 11/04/24 00:00 04:29 05:15 ABG pH 7.50 H D ABG pCO2 30 L D ABG pO2 109 H D ABG HCO3 23 ABG O2 Saturation 100 H ABG Base Excess 1 VBG pH 7.43 7.52 VBG pCO2 35 L 27 L VBG pO2 43 57 VBG Base Excess -1 0 11/05/24 11/06/24 11/06/24 04:49 03:40 21:45 ABG pH 7.48 H 7.41 ABG pCO2 35 43 ABG pO2 74 L D 108 D ABG HCO3 26 27 H ABG O2 Saturation 96 99 H ABG Base Excess 3 2 VBG pH 7.49 VBG pCO2 39 D VBG pO2 39 VBG Base Excess 6 H 11/07/24 11/08/24 11/09/24 05:59 04:19 04:11 ABG pH 7.49 H 7.48 H 7.44 ABG pCO2 39 38 40 ABG pO2 71 L D 77 L 63 L ABG HCO3 29 H 29 H 27 H ABG O2 Saturation 96 97 93 ABG Base Excess 6 H 5 H 3 VBG pH VBG pCO2 VBG pO2 VBG Base Excess 11/10/24 07:02 ABG pH 7.45 ABG pCO2 42 ABG pO2 83 D ABG HCO3 29 H ABG O2 Saturation 98 ABG Base Excess 5 H VBG pH VBG pCO2 VBG pO2 VBG Base Excess Quality Measures Quality Measures sepsis Current suspected stage: ruled out Possible source: pulmonary Blood cultures ordered: completed in ED Antibiotic ordered: Yes Assessment & Plan Assessment Current Active Medications: Generic Name Dose Route Start Last Admin Trade Name Freq PRN Reason Stop Dose Admin Acetaminophen 325 mg 11/05/24 09:48 Acetaminophen 325 Mg Tablet PO 12/03/24 15:31 Q6H PRN Fever >101.5 Albuterol/Ipratropium 3 ml 11/13/24 10:30 Albuterol/Ipratropium (Duoneb) Rt Anastacia 3 Ml Nebu INH 12/11/24 10:59 Q4HRRT PRN wheezing Aspirin 81 mg 11/14/24 09:00 11/16/24 08:30 Aspirin 81 Mg Chew PO 12/14/24 08:59 81 mg QDAY BETO Administration Atorvastatin Calcium 40 mg 11/13/24 21:00 11/15/24 20:12 Atorvastatin Calcium 20 Mg Tablet PO 12/13/24 20:59 40 mg HS BETO Administration Carvedilol 3.125 mg 11/14/24 11:00 11/16/24 17:47 Carvedilol 3.125 Mg Tablet PO 12/14/24 10:59 3.125 mg BIDWM BETO Administration Dextrose 25 ml 11/11/24 16:45 Dextrose 50%-Water Inj 50 Ml Syringe IV 12/11/24 16:44 Q15MIN PRN BG 50-70 responsive npo pt Dextrose 50 ml 11/11/24 16:45 Dextrose 50%-Water Inj 50 Ml Syringe IV 12/11/24 16:44 Q15MIN PRN BG <50 OR BG <70 & pt unresponsive Folic Acid 1 mg 11/14/24 09:00 11/16/24 08:30 Folic Acid 1 Mg Tablet PO 12/14/24 08:59 1 mg QDAY BETO Administration Glucagon 1 mg 11/11/24 16:45 Glucagon Inj 1 Mg Vial IM Q15MIN PRN BG <70, and no IV access Ferric Sodium Gluconate 125 mg 110 mls @ 110 mls/hr 11/08/24 17:15 11/16/24 10:20 / Sodium Chloride IV 12/08/24 17:14 Infused QDAY BETO Infusion Insulin Human Lispro 0 unit 11/12/24 17:15 11/16/24 17:37 Insulin Lispro (Admelog) 1 Unit/0.01 Ml Unit SC 12/12/24 17:14 Not Given ACHS BETO Protocol Lactulose 20 gm 11/13/24 14:00 11/16/24 16:22 Lactulose Syrup 20 Gm/30 Ml Udc PO 12/13/24 13:59 20 gm TID BETO Administration Protocol Midodrine 5 mg 11/14/24 08:35 Midodrine 5 Mg Tablet PO 12/13/24 13:59 TID PRN SBP below 100 Multivitamins/Minerals 15 ml 11/14/24 09:00 11/16/24 08:30 Multivitamin 15 Ml Udc PO 12/14/24 08:59 15 ml QDAY BETO Administration Ondansetron HCl 4 mg 11/03/24 15:32 Ondansetron Inj 2 Mg/Ml Inj 2 Ml IVP 12/03/24 15:31 Q6H PRN NAUSEA OR VOMITING Protocol Pantoprazole Sodium 40 mg 11/14/24 09:00 11/16/24 08:30 Pantoprazole 40 Mg Tablet PO 12/14/24 08:59 40 mg BID BETO Administration Sennosides 1 tab 11/04/24 09:00 11/16/24 08:30 Senna Tablet PO 12/04/24 08:59 1 tab QDAY BETO Administration Protocol Sodium Chloride 3 ml 11/03/24 10:58 Sodium Chloride Rt Anastacia 0.9% 3 Ml Nebu INH 12/03/24 10:57 PRN PRN SOLN Thiamine HCl 100 mg 11/14/24 09:00 11/16/24 08:30 Thiamine 100 Mg Tablet PO 12/14/24 08:59 100 mg QDAY BETO Administration Plan The patient is a 49-year-old male with significant past medical history of esophageal cancer currently on remission, and hypertension presented to ED with chief complaint of acute SOB and generalized weakness is currently being treated for septic shock, Takotsubo syndrome complicated by sigmoid interventricular septum further leading to tachycardia and NSTEMI type II. #Abnormal EKG, likely 2/2 #Takotsubo syndrome vs LAD, complicated by #Sigmoid interventricular septum, possibly leading to #Moderate to severe eccentric MR, leading to #Moderate to severe PAH #HFrEF with apical akinesis EKG was significant for sinus tachycardia with deep symmetric T wave inversion in lateral leads V4 to V6, and inverted T waves in lead I and aVL. TTE on 11/03/2024 revealed: Normal LV size and moderate LV systolic dysfunction with an EF of 35 to 40%. Apical akinesis with hypokinesis of the mid to apical anterior, anterolateral and apical septal segments indicating possible Takotsubo syndrome versus LAD involvement. RV Normal in size and function. 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 Severe LA dilatation. Trace AI Moderate TR with mild RA dilatation. No Pericardial Effusion. IVC not well-visualized. -As the patient has sigmoid interventricular septum, and recent stressor likely leading to Takotsubo syndrome, leading to tachycardia of the base of left ventricle, which is further pulling in mitral valve leading to MR resulting with moderate to severe PAH. -Volume status is critical, to maintain euvolemia, as hypovolemia will cause decrease venous return, resulting as compensatory tachycardia of upper left ventricle leading to further MR, with increased pulmonary arterial pressure and shunt reversal. On the other hand, if there is hypervolemia leading to increased venous return, will complicate MR and increased pulmonary artery pressure. -Increased metoprolol XL 50mg daily -Continue with atorvastatin 40 Mg daily at night, ferric gluconate 125 Mg IV daily, folic acid 1 mg daily, metoprolol succinate 25 Mg daily, midodrine 5 Mg 3 times daily, and thiamine 100 Mg daily. Discontinued aspirin 81 Mg daily. LHC and RHC on 11/16/2024 revealed \ 1. NSTEMI II: LHC showed normal coronaries without any angiographically significant obstruction and few luminal irregularities. 2. LVEF was 55-60%. 3. LVEDP midly elevated at 24 mm hg. There was significant transvalvular aortic gradient of 18-20 mmHg. 4. Normal elevated right heart pressures with mean RA of 5 mm hg, mean PA of 19 mmhg and mean PCWP at 12 mm Hg. Recommendations: 1. Recommend aggressive medical management and aggressive risk factor modification. 2. Patient recommended not to lift more than 5 lbs for the next 7-10 days and follow up with me in my office in 7 days. #Acute encephalopathy, improved Likely multifactorial 2/2 #Alcohold withdrawal, and #Demylinating disease pattern 2/2 #Alcohol abuse disorder Patient presented with generalized weakness, later required intubation in the setting of aspiration pneumonia and septic shock. However, the patient has not been tolerating spontaneous breathing trials. BL UE weakness was there so MRI brain was done that revealed punctate foci increased signal in the frontal parietal white matter, demyelinating disease pattern. -Management deferred to primary hospitalist team #Anemia Likely multifactorial in the setting of nutritional deficiency along with iron, vitamin B12 and folic acid deficiency MCV is elevated at 99. Given his severe alcohol abuse patient is probably B12 as well as folate deficient. Patient would benefit from replacement of iron and B12 and folate which will eventually help anemia long-term and improve his tachycardia which would help with his LVOT obstruction and ABBI along with improvement of sepsis and alcohol withdrawal syndrome - Recommended IV iron infusion, vitamin B12 and folic acid #Cirrhosis #Dilated esophageal varices #Hypertensive portal gastropathy 2/2 alcohol abuse disorder -GI Dr. Louis recommended octreotide drip for 5 days. #Acute hypoxic respiratory failure, improving #Septic shock, improved #Aspiration pneumonia, improving #Severe lactic acidosis, imporved Currently, the patient is intubated but saturating on 21% FiO2. Initially, the patient presented with blood pressure of 81/51, pulse 127, RR 40, and white count 33.8 meeting 3/4 SIRS criteria, chest x-ray significant for right sided middle and lower lobe pneumonia, CT chest abdomen and pelvis revealing right middle and lower lobe pneumonia, and left lower lobe pneumonia, and lactic acid level of 16, with endorgan failure as acute hypoxic respiratory failure requiring intubation. Patient received 2.5 L of bolus IV fluid Unable to wean off of mechanical ventilation and was following commands, but BL UE weakness was there so MRI brain was done that revealed: Punctate foci increased signal in the frontal parietal white matter, demyelinating disease pattern - Continue with aggressive IV antibiotics - Blood and urine culture sent, negative so far. - IgM for coccidiomycosis, negative #NSTEMI type II, improved Likely multifactorial secondary to septic shock, Takotsubo syndrome, sigmoid interventricular septum leading to MR. No significant risk factor for STEMI, except for hypertension, as patient denies smoking or illicit drug use, and lipid panel was significant for LDL 39 and HDL 53. EKG unremarkable for STEMI Pt denied any chest pain - Heparin drip stopped - Aspirin 81 Mg daily - Atorvastatin 40 Mg daily at night Recommendations: 1. Recommend aggressive medical management and aggressive risk factor modification. 2. Patient recommended not to lift more than 5 lbs for the next 7-10 days and follow up with me in my office in 7 days. Thank you for cardiology consultation. We really appreciate for the opportunity to participate in this patient care. Cardiology team will continue to follow-up on this patient. The patient's management plan was discussed with my attending physician MD Ventura Montes MD, PGY3 Attending Provider Attestation/Addendum I have personally seen and examined the patient separately on the above date of service and discussed the plan of care with the resident. I reviewed the resident Dr. Ventura Myers consultation progress note and agree with the resident findings and plan in the note above and have also edited the documentation to reflect my findings and plan. Colin Brandt M.D. Interventional Cardiology
[2024-11-16] MEDS: METOPROLOL SUCCINATE XL 25 MG TABCR PO (18:29)
--- NOTE | 2024-11-16 19:59 | PD.IMPROG ---
Documentation for date of: 11/16/24 Subjective Subjective Interval history: Patient evaluated hemoglobin hematocrit stable Exam Vital Signs Temp Pulse Resp BP Pulse Ox O2 Del Method O2 Flow Rate 98.2 F 108 H 18 142/59 H 96 Room Air 3 11/16/24 16:00 11/16/24 18:45 11/16/24 18:45 11/16/24 18:29 11/16/24 18:45 11/16/24 16:00 11/13/24 18:00 FiO2 96 11/12/24 19:13 Objective Labs 11/16/24 04:07 11/16/24 17:28 Labs: Laboratory Results - last 24 hr 11/11/24 11/16/24 11/16/24 05:00 04:07 17:28 WBC 16.4 H RBC 2.60 L Hgb 8.1 L Hct 24.9 L MCV 96 MCH 31.2 MCHC 32.5 RDW Std Deviation 70.8 H Plt Count 306 D Neut % (Auto) 76 Lymph % (Auto) 12 [place] % (Auto) 8 Eos % (Auto) 2 Baso % (Auto) 1 Neut # (Auto) 12.5 H Lymph # (Auto) 2.0 [place] # (Auto) 1.3 H Eos # (Auto) 0.3 Baso # (Auto) 0.1 Immature Gran # (Auto) 0.20 H Absolute Nucleated RBC 0.00 Immature Gran % 1 H Nucleated RBC % 0 Sodium 136 133 L Potassium 5.1 D 4.5 D Chloride 104 100 Carbon Dioxide 23.6 23.7 Anion Gap 8 9 BUN 11 10 Creatinine 0.8 0.8 Estim Creat Clear Calc 80.8 80.8 eGFR > 60 > 60 BUN/Creatinine Ratio 14 13 Glucose 98 147 H Calculated Osmolality 271 L 268 L Calcium 8.1 L 8.4 Corrected Calcium 8.9 8.9 Phosphorus 3.0 2.6 Magnesium 1.8 1.8 Total Bilirubin 0.4 AST 89 H ALT 71 H Alkaline Phosphatase 156 H Total Protein 5.5 L Albumin 3.0 L 3.4 L Globulin 2.5 Albumin/Globulin Ratio 1.2 Acetylchol Rcpt Bind Ab <0.30 Impressions Impression: 1+ esophageal varices Gastritis No signs of any active bleeding continue to monitor CBC ABG Interpretation ABG results: 11/03/24 11/03/24 11/03/24 11:20 14:11 17:06 ABG pH 7.35 7.34 L 7.20 L D ABG pCO2 21 L 20 L 45 D ABG pO2 193 H 82 L D 78 L ABG HCO3 12 L 11 L 16 L ABG O2 Saturation 100 H 96 91 ABG Base Excess -12 L -14 L -12 L VBG pH VBG pCO2 VBG pO2 VBG Base Excess 11/04/24 11/04/24 11/04/24 00:00 04:29 05:15 ABG pH 7.50 H D ABG pCO2 30 L D ABG pO2 109 H D ABG HCO3 23 ABG O2 Saturation 100 H ABG Base Excess 1 VBG pH 7.43 7.52 VBG pCO2 35 L 27 L VBG pO2 43 57 VBG Base Excess -1 0 11/05/24 11/06/24 11/06/24 04:49 03:40 21:45 ABG pH 7.48 H 7.41 ABG pCO2 35 43 ABG pO2 74 L D 108 D ABG HCO3 26 27 H ABG O2 Saturation 96 99 H ABG Base Excess 3 2 VBG pH 7.49 VBG pCO2 39 D VBG pO2 39 VBG Base Excess 6 H 11/07/24 11/08/24 11/09/24 05:59 04:19 04:11 ABG pH 7.49 H 7.48 H 7.44 ABG pCO2 39 38 40 ABG pO2 71 L D 77 L 63 L ABG HCO3 29 H 29 H 27 H ABG O2 Saturation 96 97 93 ABG Base Excess 6 H 5 H 3 VBG pH VBG pCO2 VBG pO2 VBG Base Excess 11/10/24 07:02 ABG pH 7.45 ABG pCO2 42 ABG pO2 83 D ABG HCO3 29 H ABG O2 Saturation 98 ABG Base Excess 5 H VBG pH VBG pCO2 VBG pO2 VBG Base Excess Assessment & Plan A&P Narrative 49 years old male with acute respiratory failure bilateral pneumonia acute coronary syndrome mechanically ventilated with previous history of Esophageal carcinoma status posttreatment and supposedly in remission Difficulty placing the NGT only OGT in Plan Will attempt to place a 14 [place] NGT either via nasogastric approach or oral approach Will follow the patient # Transaminitis most likely due to hypoxic hepatitis Thank you very much for the opportunity to participate in the care of this patient Time Spent With Patient Time: Total time spent is greater than 50% in coordination of care (as documented) at patient's floor/unit and/or counseling patient:
[2024-11-16] MEDS: ATORVASTATIN CALCIUM 20 MG TABLET 40 MG PO (20:33)
--- NOTE | 2024-11-16 20:40 | PD.NEUROPROG ---
Documentation for date of: 11/16/24 Subjective Subjective Interval history: Patient was seen in telemetry today. No new symptoms reported. He is gradually improving and his strength and balance. Exam - Neurology Vital Signs Temp Pulse Resp BP Pulse Ox O2 Del Method O2 Flow Rate 98.2 F 108 H 18 142/59 H 96 Room Air 3 11/16/24 16:00 11/16/24 18:45 11/16/24 18:45 11/16/24 18:29 11/16/24 18:45 11/16/24 16:00 11/13/24 18:00 FiO2 96 11/12/24 19:13 Narrative Exam GENERAL APPEARANCE: Well hydrated, well-nourished in no acute distress. HEENT: Normocephalic, atraumatic, extraocular movements intact. Pupils: Equal reacting to light and accommodation NECK: Supple, no JVD or bruits. CARDIOVASULAR: Heart: S1, S2 heard, regular without S3-S4 or murmur no rubs or gallops. LUNGS/CHEST: Clear to auscultation bilaterally. No rails, rhonchi, or wheezing. Normal inspection. ABDOMEN: Soft, nontender, with normal bowel sounds. No pulsatile masses. No rebound, rigidity, or guarding. Normal inspection and palpation. EXTREMITIES: Normal inspection and palpation. No edema, clubbing or cyanosis. SKIN: Warm and dry without rashes. Normal inspection. MUSCULOSKELETAL: No cervical, thoracic, lumbar or midline bony tenderness. Normal inspection. NEURO: Alert, awake and oriented x3. Cranial nerves: II through XII grossly intact. Speech and language: Normal with no dysarthria or dysphasia. Motor system: Tone and bulk: Normal: Strength: 5 out of 5 in all 4 extremities; No pronator drift noted. Deep tendon reflexes: 2+ bilaterally symmetrical. Plantar reflex: Downgoing bilaterally. Sensory system: Intact to all modalities of sensation bilaterally. Coordination: Intact to [id number] and [id number] test bilaterally. No ataxia, no dysmetria, or dysdiadochokinesia noted. No intention tremors noted. Gait: Not tested. No signs of meningeal irritation noted. PSYCHIATRIC: Normal mood and affect. Objective Labs 11/16/24 04:07 11/16/24 17:28 Labs: Laboratory Results - last 24 hr 11/11/24 11/16/24 11/16/24 05:00 04:07 17:28 WBC 16.4 H RBC 2.60 L Hgb 8.1 L Hct 24.9 L MCV 96 MCH 31.2 MCHC 32.5 RDW Std Deviation 70.8 H Plt Count 306 D Neut % (Auto) 76 Lymph % (Auto) 12 [place] % (Auto) 8 Eos % (Auto) 2 Baso % (Auto) 1 Neut # (Auto) 12.5 H Lymph # (Auto) 2.0 [place] # (Auto) 1.3 H Eos # (Auto) 0.3 Baso # (Auto) 0.1 Immature Gran # (Auto) 0.20 H Absolute Nucleated RBC 0.00 Immature Gran % 1 H Nucleated RBC % 0 Sodium 136 133 L Potassium 5.1 D 4.5 D Chloride 104 100 Carbon Dioxide 23.6 23.7 Anion Gap 8 9 BUN 11 10 Creatinine 0.8 0.8 Estim Creat Clear Calc 80.8 80.8 eGFR > 60 > 60 BUN/Creatinine Ratio 14 13 Glucose 98 147 H Calculated Osmolality 271 L 268 L Calcium 8.1 L 8.4 Corrected Calcium 8.9 8.9 Phosphorus 3.0 2.6 Magnesium 1.8 1.8 Total Bilirubin 0.4 AST 89 H ALT 71 H Alkaline Phosphatase 156 H Total Protein 5.5 L Albumin 3.0 L 3.4 L Globulin 2.5 Albumin/Globulin Ratio 1.2 Acetylchol Rcpt Bind Ab <0.30 ABG Interpretation ABG results: 11/03/24 11/03/24 11/03/24 11:20 14:11 17:06 ABG pH 7.35 7.34 L 7.20 L D ABG pCO2 21 L 20 L 45 D ABG pO2 193 H 82 L D 78 L ABG HCO3 12 L 11 L 16 L ABG O2 Saturation 100 H 96 91 ABG Base Excess -12 L -14 L -12 L VBG pH VBG pCO2 VBG pO2 VBG Base Excess 11/04/24 11/04/24 11/04/24 00:00 04:29 05:15 ABG pH 7.50 H D ABG pCO2 30 L D ABG pO2 109 H D ABG HCO3 23 ABG O2 Saturation 100 H ABG Base Excess 1 VBG pH 7.43 7.52 VBG pCO2 35 L 27 L VBG pO2 43 57 VBG Base Excess -1 0 07/10/25 07/11/25 07/11/25 04:49 03:40 21:45 ABG pH 7.48 H 7.41 ABG pCO2 35 43 ABG pO2 74 L D 108 D ABG HCO3 26 27 H ABG O2 Saturation 96 99 H ABG Base Excess 3 2 VBG pH 7.49 VBG pCO2 39 D VBG pO2 39 VBG Base Excess 6 H 11/07/24 11/08/24 11/09/24 05:59 04:19 04:11 ABG pH 7.49 H 7.48 H 7.44 ABG pCO2 39 38 40 ABG pO2 71 L D 77 L 63 L ABG HCO3 29 H 29 H 27 H ABG O2 Saturation 96 97 93 ABG Base Excess 6 H 5 H 3 VBG pH VBG pCO2 VBG pO2 VBG Base Excess 11/10/24 07:02 ABG pH 7.45 ABG pCO2 42 ABG pO2 83 D ABG HCO3 29 H ABG O2 Saturation 98 ABG Base Excess 5 H VBG pH VBG pCO2 VBG pO2 VBG Base Excess Assessment & Plan Additional Assessment & Plan Additional Plan: # Generalized weakness, improving CK WNL 41 MRI brain without contrast 11/09: Punctate foci site in frontal parietal b/l white matter on FLAIR, non-specific, chronic, NOT suggestive of demyelinating diseae Plan: - EEG showed slowing consistent with metabolic/degenerative/vascular - Continue thiamine, folate - Pending AChR Ab (myasthenia gravis) - If weakness persist even after physical therapy, we will consider doing EMG nerve conduction study of both upper and lower extremities as an outpatient
[2024-11-17] VITALS (10 sets, daily range): BP systolic 100–120; BP diastolic 50–79; PULSE 80–110; RESP 12–98; TEMP 36.8–37.1; O2SAT 92–97; BMI 23.4
[2024-11-17 06:12] LABS: Basophils # (Auto) 0.1 Thou/mm3 (0.0-0.2); Basophils % (Auto) 1 % (0-2.5); Eosinophils # (Auto) 0.2 Thou/mm3 (0.0-0.5); Eosinophils % (Auto) 2 % (0-10); Hematocrit 26.0 % (41.0-53.0); Immature Granulocytes Auto 0.14 Thou/mm3 (0.00-0.00); Lymphocytes # (Auto) 1.8 Thou/mm3 (1.0-4.8); Lymphocytes % (Auto) 12 % (10-50); Mean Corpuscular HGB Conc 31.9 g/dl (31.0-37.0); Mean Corpuscular Hemoglobin 31.4 pg (25.0-35.0); Mean Corpuscular Volume 99 fL (80-100); Monocytes # (Auto) 1.3 Thou/mm3 (0.0-0.8); Monocytes % (Auto) 9 % (0-12); Neutrophils # (Auto) 11.1 Thou/mm3 (1.8-7.7); Neutrophils % (Auto) 76 % (37-80); Nucleated Red Blood Cell # 0.00 Thou/mm3 (0.00-0.00); Nucleated Red Blood Cell % 0 /100 WBC (0); Platelet Count 341 Thou/mm3 (140-440); RDW Standard Deviation 75.2 fL (35.1-43.9); Red Blood Count 2.64 Miln/mm3 (4.50-5.90); White Blood Count 14.5 Thou/mm3 (3.8-10.6)
[2024-11-17 06:16] LABS: Hemoglobin 8.3 g/dL (13.5-16.0)
[2024-11-17 06:53] LABS: Alanine Aminotransferase 68 U/L (10-49); Albumin, Serum 3.1 gm/dL (3.5-5.0); Albumin/Globulin Ratio 1.1 (1.2-2.2); Alkaline Phosphatase 165 U/L (46-116); Anion Gap 9 (7-16); Aspartate Amino Transferase 82 U/L (0-34); BUN/Creatinine Ratio 11 Ratio (12-20); Bilirubin,Total 0.5 mg/dL (0.3-1.2); Blood Urea Nitrogen 9 mg/dL (9-23); Calcium 8.2 mg/dL (8.3-10.6); Calcium (Corrected) 8.9 mg/dL (8.5-10.1); Carbon Dioxide 24.6 mMol/L (20.0-31.0); Chloride 102 mMol/L (98-107); Creatinine (Component) 0.8 mg/dL (0.6-1.3); Estimated Creatinine Clearance 80.8 mL/min (>60); Globulin 2.9 gm/dL (2.3-3.5); Glucose 99 mg/dL (74-106); Magnesium 1.6 mg/dL (1.6-2.6); Osmolality,Calculated 270 (275-295); Phosphorous 3.2 mg/dL (2.4-5.1); Potassium 4.6 mMol/L (3.4-5.1); Sodium 136 mMol/L (136-145); Total Protein 6.0 gm/dL (5.7-8.2); eGFR > 60 See Note
[2024-11-17] MEDS: METOPROLOL SUCCINATE XL 25 MG TABCR 50 MG PO (09:36)
[2024-11-17] MEDS: FOLIC ACID 1 MG TABLET PO (09:36)
[2024-11-17] MEDS: PANTOPRAZOLE 40 MG TABLET PO ×2 (09:36→21:52)
[2024-11-17] MEDS: THIAMINE 100 MG TABLET PO (09:36)
[2024-11-17] MEDS: MULTIVITAMIN 15 ML UDC PO (09:36)
[2024-11-17] MEDS: Magnesium Sulfate 4 GM Ivpb 4 GM/50 ML BAG IV (09:37)
[2024-11-17] MEDS: FERRIC SOD GLUC INJ 125 MG in SODIUM CHLORIDE 0.9% 100 ML 110 MG IV (09:41)
[2024-11-17 10:29] LABS: O2 Saturation (Cath Lab) 92 % (91-98); Puncture Site Aortic
[2024-11-17 10:31] LABS: O2 Saturation (Cath Lab) 60 % (91-98); Puncture Site Pulmonary Artery
--- NOTE | 2024-11-17 11:35 | PC.SS ---
Follow up note: SS met with patient at bedside and spoke to his sister over the phone. Patient states he does not want to d/c to [facility] but wants to return to his sisters home. SS later received a call from his sister, Cecilia @ [phone] who states she cannot have him live with her. He has caused them some problems. She prefers patient to d/c to [facility]. SS will submit request and follow up with auth and patient.
[2024-11-17] MEDS: LACTULOSE SYRUP 20 GM/30 ML UDC PO (14:44)
--- NOTE | 2024-11-17 17:00 | PD.RESPRO ---
Documentation for date of: 11/17/24 Subjective Subjective Interval history: Patient is seen and examined at bedside No acute overnight events. Denies any other complaints. Endorsed that he is doing good Labs done today is significant for leukocytosis, and improving transaminitis Recommendations: 1. Recommend aggressive medical management and aggressive risk factor modification. 2. Patient recommended not to lift more than 5 lbs for the next 7-10 days and follow up with me in my office in 7 days. -Continue with atorvastatin 40 Mg daily at night, ferric gluconate 125 Mg IV daily, folic acid 1 mg daily, metoprolol succinate increased to 50mg daily, midodrine 5 Mg 3 times daily, and thiamine 100 Mg daily. Discontinued aspirin 81 Mg daily. Exam Vital Signs Temp Pulse Resp BP Pulse Ox O2 Del Method O2 Flow Rate 98.2 F 91 16 114/71 95 Room Air 3 11/17/24 16:00 11/17/24 16:00 11/17/24 16:00 11/17/24 16:00 11/17/24 16:00 11/17/24 16:00 11/13/24 18:00 FiO2 96 11/12/24 19:13 Narrative Exam General: No acute distress, on oxy mask, responding well to commands, interacting with soft voice HEENT: Moist mucous membranes, oropharynx clear Neck: Supple, No masses, No JVD CVS: S1, S2 regular rate and rhythm, No murmurs, rubs or gallops Lungs: Mild wheezing throughout the lung field, improving rhonchi appreciated throughout the lung field, mild bibasilar crackles appreciated Abd: Soft, NT/ND, +BS, hepatomegaly appreciated Ext: No edema, warm and well perfused Skin: No rash Psych: Unable to obtain Objective Labs 11/17/24 05:49 11/17/24 05:49 Labs: Laboratory Results - last 24 hr 11/16/24 11/16/24 11/16/24 13:21 13:21 13:21 WBC RBC Hgb Hct MCV MCH MCHC RDW Std Deviation Plt Count Neut % (Auto) Lymph % (Auto) [place] % (Auto) Eos % (Auto) Baso % (Auto) Neut # (Auto) Lymph # (Auto) [place] # (Auto) Eos # (Auto) Baso # (Auto) Immature Gran # (Auto) Absolute Nucleated RBC Immature Gran % Nucleated RBC % POC Blood Site Aortic Pulmonary Artery POC O2 Saturation 92 60 L Sodium Potassium Chloride Carbon Dioxide Anion Gap BUN Creatinine Estim Creat Clear Calc eGFR BUN/Creatinine Ratio Glucose Calculated Osmolality Calcium Corrected Calcium Phosphorus Magnesium Total Bilirubin AST ALT Alkaline Phosphatase Total Protein Albumin Globulin Albumin/Globulin Ratio 11/16/24 11/17/24 17:28 05:49 WBC 14.5 H RBC 2.64 L Hgb 8.3 L Hct 26.0 L MCV 99 MCH 31.4 MCHC 31.9 RDW Std Deviation 75.2 H Plt Count 341 D Neut % (Auto) 76 Lymph % (Auto) 12 [place] % (Auto) 9 Eos % (Auto) 2 Baso % (Auto) 1 Neut # (Auto) 11.1 H Lymph # (Auto) 1.8 [place] # (Auto) 1.3 H Eos # (Auto) 0.2 Baso # (Auto) 0.1 Immature Gran # (Auto) 0.14 H Absolute Nucleated RBC 0.00 Immature Gran % 1 H Nucleated RBC % 0 POC Blood Site POC O2 Saturation Sodium 133 L 136 Potassium 4.5 D 4.6 Chloride 100 102 Carbon Dioxide 23.7 24.6 Anion Gap 9 9 BUN 10 9 Creatinine 0.8 0.8 Estim Creat Clear Calc 80.8 80.8 eGFR > 60 > 60 BUN/Creatinine Ratio 13 11 L Glucose 147 H 99 Calculated Osmolality 268 L 270 L Calcium 8.4 8.2 L Corrected Calcium 8.9 8.9 Phosphorus 2.6 3.2 Magnesium 1.8 1.6 Total Bilirubin 0.5 AST 82 H ALT 68 H Alkaline Phosphatase 165 H Total Protein 6.0 Albumin 3.4 L 3.1 L Globulin 2.9 Albumin/Globulin Ratio 1.1 L ABG Interpretation ABG results: 11/03/24 11/03/24 11/03/24 11:20 14:11 17:06 ABG pH 7.35 7.34 L 7.20 L D ABG pCO2 21 L 20 L 45 D ABG pO2 193 H 82 L D 78 L ABG HCO3 12 L 11 L 16 L ABG O2 Saturation 100 H 96 91 ABG Base Excess -12 L -14 L -12 L VBG pH VBG pCO2 VBG pO2 VBG Base Excess 11/04/24 11/04/24 11/04/24 00:00 04:29 05:15 ABG pH 7.50 H D ABG pCO2 30 L D ABG pO2 109 H D ABG HCO3 23 ABG O2 Saturation 100 H ABG Base Excess 1 VBG pH 7.43 7.52 VBG pCO2 35 L 27 L VBG pO2 43 57 VBG Base Excess -1 0 11/05/24 11/06/24 11/06/24 04:49 03:40 21:45 ABG pH 7.48 H 7.41 ABG pCO2 35 43 ABG pO2 74 L D 108 D ABG HCO3 26 27 H ABG O2 Saturation 96 99 H ABG Base Excess 3 2 VBG pH 7.49 VBG pCO2 39 D VBG pO2 39 VBG Base Excess 6 H 11/07/24 11/08/24 11/09/24 05:59 04:19 04:11 ABG pH 7.49 H 7.48 H 7.44 ABG pCO2 39 38 40 ABG pO2 71 L D 77 L 63 L ABG HCO3 29 H 29 H 27 H ABG O2 Saturation 96 97 93 ABG Base Excess 6 H 5 H 3 VBG pH VBG pCO2 VBG pO2 VBG Base Excess 11/10/24 07:02 ABG pH 7.45 ABG pCO2 42 ABG pO2 83 D ABG HCO3 29 H ABG O2 Saturation 98 ABG Base Excess 5 H VBG pH VBG pCO2 VBG pO2 VBG Base Excess Quality Measures Quality Measures sepsis Current suspected stage: ruled out Possible source: pulmonary Blood cultures ordered: completed in ED Antibiotic ordered: No Assessment & Plan Assessment Current Active Medications: Generic Name Dose Route Start Last Admin Trade Name Freq PRN Reason Stop Dose Admin Acetaminophen 325 mg 11/05/24 09:48 Acetaminophen 325 Mg Tablet PO 12/03/24 15:31 Q6H PRN Fever >101.5 Albuterol/Ipratropium 3 ml 11/13/24 10:30 Albuterol/Ipratropium (Duoneb) Rt Anastacia 3 Ml Nebu INH 12/11/24 10:59 Q4HRRT PRN wheezing Atorvastatin Calcium 40 mg 11/13/24 21:00 11/16/24 20:33 Atorvastatin Calcium 20 Mg Tablet PO 12/13/24 20:59 40 mg HS BETO Administration Dextrose 25 ml 11/11/24 16:45 Dextrose 50%-Water Inj 50 Ml Syringe IV 12/11/24 16:44 Q15MIN PRN BG 50-70 responsive npo pt Dextrose 50 ml 11/11/24 16:45 Dextrose 50%-Water Inj 50 Ml Syringe IV 12/11/24 16:44 Q15MIN PRN BG <50 OR BG <70 & pt unresponsive Folic Acid 1 mg 11/14/24 09:00 11/17/24 09:36 Folic Acid 1 Mg Tablet PO 12/14/24 08:59 1 mg QDAY BETO Administration Glucagon 1 mg 11/11/24 16:45 Glucagon Inj 1 Mg Vial IM Q15MIN PRN BG <70, and no IV access Ferric Sodium Gluconate 125 mg 110 mls @ 110 mls/hr 11/08/24 17:15 11/17/24 09:41 / Sodium Chloride IV 12/08/24 17:14 110 mls/hr QDAY BETO Administration Insulin Human Lispro 0 unit 11/12/24 17:15 11/17/24 16:28 Insulin Lispro (Admelog) 1 Unit/0.01 Ml Unit SC 12/12/24 17:14 Not Given ACHS BETO Protocol Lactulose 20 gm 11/13/24 14:00 11/17/24 14:44 Lactulose Syrup 20 Gm/30 Ml Udc PO 12/13/24 13:59 20 gm TID BETO Administration Protocol Metoprolol Succinate 50 mg 11/17/24 09:00 11/17/24 09:36 Metoprolol Succinate Xl 25 Mg Tabcr PO 12/17/24 08:59 50 mg QDAY BETO Administration Midodrine 5 mg 11/14/24 08:35 Midodrine 5 Mg Tablet PO 12/13/24 13:59 TID PRN SBP below 100 Multivitamins/Minerals 15 ml 11/14/24 09:00 11/17/24 09:36 Multivitamin 15 Ml Udc PO 12/14/24 08:59 15 ml QDAY BETO Administration Ondansetron HCl 4 mg 11/03/24 15:32 Ondansetron Inj 2 Mg/Ml Inj 2 Ml IVP 12/03/24 15:31 Q6H PRN NAUSEA OR VOMITING Protocol Pantoprazole Sodium 40 mg 11/14/24 09:00 11/17/24 09:36 Pantoprazole 40 Mg Tablet PO 12/14/24 08:59 40 mg BID BETO Administration Sennosides 1 tab 11/04/24 09:00 11/17/24 09:12 Senna Tablet PO 12/04/24 08:59 Not Given QDAY BETO Protocol Sodium Chloride 3 ml 11/03/24 10:58 Sodium Chloride Rt Anastacia 0.9% 3 Ml Nebu INH 12/03/24 10:57 PRN PRN SOLN Thiamine HCl 100 mg 11/14/24 09:00 11/17/24 09:36 Thiamine 100 Mg Tablet PO 12/14/24 08:59 100 mg QDAY BETO Administration Plan The patient is a 49-year-old male with significant past medical history of esophageal cancer currently on remission, and hypertension presented to ED with chief complaint of acute SOB and generalized weakness is currently being treated for septic shock, Takotsubo syndrome complicated by sigmoid interventricular septum further leading to tachycardia and NSTEMI type II. #Abnormal EKG, likely 2/2 #Takotsubo syndrome vs LAD, complicated by #Sigmoid interventricular septum, possibly leading to #Moderate to severe eccentric MR, leading to #Moderate to severe PAH, resolved #HFrEF with apical akinesis, improved EKG was significant for sinus tachycardia with deep symmetric T wave inversion in lateral leads V4 to V6, and inverted T waves in lead I and aVL. TTE on 11/03/2024 revealed: Normal LV size and moderate LV systolic dysfunction with an EF of 35 to 40%. Apical akinesis with hypokinesis of the mid to apical anterior, anterolateral and apical septal segments indicating possible Takotsubo syndrome versus LAD involvement. RV Normal in size and function. 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 Severe LA dilatation. Trace AI Moderate TR with mild RA dilatation. No Pericardial Effusion. IVC not well-visualized. -As the patient has sigmoid interventricular septum, and recent stressor likely leading to Takotsubo syndrome, leading to tachycardia of the base of left ventricle, which is further pulling in mitral valve leading to MR resulting with moderate to severe PAH. -Volume status is critical, to maintain euvolemia, as hypovolemia will cause decrease venous return, resulting as compensatory tachycardia of upper left ventricle leading to further MR, with increased pulmonary arterial pressure and shunt reversal. On the other hand, if there is hypervolemia leading to increased venous return, will complicate MR and increased pulmonary artery pressure. -Increased metoprolol XL 50mg daily -Continue with atorvastatin 40 Mg daily at night, ferric gluconate 125 Mg IV daily, folic acid 1 mg daily, metoprolol succinate 50 Mg daily, midodrine 5 Mg 3 times daily, and thiamine 100 Mg daily. Discontinued aspirin 81 Mg daily. LHC and RHC on 11/16/2024 revealed \ 1. NSTEMI II: LHC showed normal coronaries without any angiographically significant obstruction and few luminal irregularities. 2. LVEF was 55-60%. 3. LVEDP midly elevated at 24 mm hg. There was significant transvalvular aortic gradient of 18-20 mmHg. 4. Normal elevated right heart pressures with mean RA of 5 mm hg, mean PA of 19 mmhg and mean PCWP at 12 mm Hg. Recommendations: 1. Recommend aggressive medical management and aggressive risk factor modification. 2. Patient recommended not to lift more than 5 lbs for the next 7-10 days and follow up with me in my office in 7 days. #Acute encephalopathy, improved Likely multifactorial 2/2 #Alcohold withdrawal, and #Demylinating disease pattern 2/2 #Alcohol abuse disorder Patient presented with generalized weakness, later required intubation in the setting of aspiration pneumonia and septic shock. However, the patient has not been tolerating spontaneous breathing trials. BL UE weakness was there so MRI brain was done that revealed punctate foci increased signal in the frontal parietal white matter, demyelinating disease pattern. -Management deferred to primary hospitalist team #Anemia Likely multifactorial in the setting of nutritional deficiency along with iron, vitamin B12 and folic acid deficiency MCV is elevated at 99. Given his severe alcohol abuse patient is probably B12 as well as folate deficient. Patient would benefit from replacement of iron and B12 and folate which will eventually help anemia long-term and improve his tachycardia which would help with his LVOT obstruction and ABBI along with improvement of sepsis and alcohol withdrawal syndrome - Recommended IV iron infusion, vitamin B12 and folic acid #Cirrhosis #Dilated esophageal varices #Hypertensive portal gastropathy 2/2 alcohol abuse disorder -GI Dr. Louis recommended octreotide drip for 5 days. #Acute hypoxic respiratory failure, improved #Septic shock, improved #Aspiration pneumonia, improved #Severe lactic acidosis, imporved #NSTEMI type II, improved Likely multifactorial secondary to septic shock, Takotsubo syndrome, sigmoid interventricular septum leading to MR. No significant risk factor for STEMI, except for hypertension, as patient denies smoking or illicit drug use, and lipid panel was significant for LDL 39 and HDL 53. EKG unremarkable for STEMI Pt denied any chest pain - Heparin drip stopped - Aspirin 81 Mg daily - Atorvastatin 40 Mg daily at night Recommendations: 1. Recommend aggressive medical management and aggressive risk factor modification. 2. Patient recommended not to lift more than 5 lbs for the next 7-10 days and follow up with me in my office in 7 days. 3. Continue with atorvastatin 40 Mg daily at night, ferric gluconate 125 Mg IV daily, folic acid 1 mg daily, metoprolol succinate 50 Mg daily, midodrine 5 Mg 3 times daily, and thiamine 100 Mg daily. Discontinued aspirin 81 Mg daily. Thank you for cardiology consultation. We really appreciate for the opportunity to participate in this patient care. Cardiology team will continue to follow-up on this patient. The patient's management plan was discussed with my attending physician MD Ventura Montes MD, PGY3 Attending Provider Attestation/Addendum I have personally seen and examined the patient separately on the above date of service and discussed the plan of care with the resident. I reviewed the resident Dr. Ventuar Myers consultation progress note and agree with the resident findings and plan in the note above and have also edited the documentation to reflect my findings and plan. Colin Brandt M.D. Interventional Cardiology
--- NOTE | 2024-11-17 17:13 | PC.PT ---
Patient is safe to ambulate to the bathroom and in the halls with a FWW and 1 staff assist. RN made aware.
--- NOTE | 2024-11-17 17:53 | ESPR_ITS ---
<Statement entered by Vilma Bailey MD - 11/17/24 18:32> A 49-year-old male with hypertension and a history of esophageal cancer in remission was admitted for alcohol withdrawal and found to have encephalopathy, pneumonia, and NSTEMI. He initially required ICU care with respiratory support but has since improved and is planned for discharge pending authorization. Cardiac workup showed an NSTEMI with normal coronaries on cath. Admission echocardiogram revealed moderate LV systolic dysfunction (EF 35?40%), apical akinesis, and regional wall motion abnormalities, concerning for Takotsubo cardiomyopathy vs LAD ischemia. Cath performed later showed EF 55?60%, mildly elevated LVEDP, and normal right-sided pressures. Echo also showed moderate to severe MR, severe LA dilation, and RVSP 65 mmHg. He also had hepatic encephalopathy with elevated ammonia, cirrhosis with melena, and suspected aspiration pneumonia, now resolved with antibiotics. Neurology workup showed demyelinating changes on MRI; outpatient EMG is planned if weakness persists. The patient has improved clinically and is stable for discharge. I?ve reviewed the note and agree with the resident's assessment and plan, with the exceptions outlined above. I personally went over the labs, imaging, home medications, and prior records, and examined the patient. The case was also reviewed with the attending physician. Please note: this document was transcribed using voice recognition technology; minor inaccuracies may be present. Vilma Bailey DO PGY II Documentation for date of: 11/17/24 Subjective Subjective Interval history: Patient seen at bedside. No acute overnight events. Patient not complaining of any shortness of breath, chest pain, nausea, vomiting, abdominal pain. Reports physical therapy has been helpful with regaining strength. Patient has cough with deep breathing and movement. Patient completed heart catheterization yesterday and Rt hand distal to the pont of entry is red, tender, and swollen. Pt awaiting insurance authorization for SNF placement. Exam Vital Signs Temp Pulse Resp BP Pulse Ox O2 Del Method O2 Flow Rate 98.2 F 91 16 114/71 95 Room Air 3 11/17/24 16:00 11/17/24 16:00 11/17/24 16:00 11/17/24 16:00 11/17/24 16:00 11/17/24 16:00 11/13/24 18:00 FiO2 96 11/12/24 19:13 Narrative Exam General: Not in acute distress, lethargic, cachectic, temporal wasting. Neurologic: GCS 13, following commands. HEENT: Normocephalic, atraumatic, mucous membranes dry. Pupils reactive to light. Heart: RRR, systolic murmur at the mitral listening post left fifth intercostal space sternal border. Lungs: Pectus excavatum, clear to auscultation bilaterally Abdomen: Right sided reducible inguinal hernia. Right lower quadrant bruise approximately 5 cm long at the site of heparin SQ inj. Extremities: No edema in the lower extremities bilaterally. 2+ radial and dorsalis pedis pulses bilaterally. Rt knee effusions. Rt hand is erythematous, warm, swollen, and tender to touch. Skin: Cool. Dry. No rash. Objective Labs 11/17/24 05:49 11/17/24 05:49 Labs: Laboratory Results - last 24 hr 11/16/24 11/16/24 11/16/24 13:21 13:21 13:21 WBC RBC Hgb Hct MCV MCH MCHC RDW Std Deviation Plt Count Neut % (Auto) Lymph % (Auto) [place] % (Auto) Eos % (Auto) Baso % (Auto) Neut # (Auto) Lymph # (Auto) [place] # (Auto) Eos # (Auto) Baso # (Auto) Immature Gran # (Auto) Absolute Nucleated RBC Immature Gran % Nucleated RBC % POC Blood Site Aortic Pulmonary Artery POC O2 Saturation 92 60 L Sodium Potassium Chloride Carbon Dioxide Anion Gap BUN Creatinine Estim Creat Clear Calc eGFR BUN/Creatinine Ratio Glucose Calculated Osmolality Calcium Corrected Calcium Phosphorus Magnesium Total Bilirubin AST ALT Alkaline Phosphatase Total Protein Albumin Globulin Albumin/Globulin Ratio 11/16/24 11/17/24 17:28 05:49 WBC 14.5 H RBC 2.64 L Hgb 8.3 L Hct 26.0 L MCV 99 MCH 31.4 MCHC 31.9 RDW Std Deviation 75.2 H Plt Count 341 D Neut % (Auto) 76 Lymph % (Auto) 12 [place] % (Auto) 9 Eos % (Auto) 2 Baso % (Auto) 1 Neut # (Auto) 11.1 H Lymph # (Auto) 1.8 [place] # (Auto) 1.3 H Eos # (Auto) 0.2 Baso # (Auto) 0.1 Immature Gran # (Auto) 0.14 H Absolute Nucleated RBC 0.00 Immature Gran % 1 H Nucleated RBC % 0 POC Blood Site POC O2 Saturation Sodium 133 L 136 Potassium 4.5 D 4.6 Chloride 100 102 Carbon Dioxide 23.7 24.6 Anion Gap 9 9 BUN 10 9 Creatinine 0.8 0.8 Estim Creat Clear Calc 80.8 80.8 eGFR > 60 > 60 BUN/Creatinine Ratio 13 11 L Glucose 147 H 99 Calculated Osmolality 268 L 270 L Calcium 8.4 8.2 L Corrected Calcium 8.9 8.9 Phosphorus 2.6 3.2 Magnesium 1.8 1.6 Total Bilirubin 0.5 AST 82 H ALT 68 H Alkaline Phosphatase 165 H Total Protein 6.0 Albumin 3.4 L 3.1 L Globulin 2.9 Albumin/Globulin Ratio 1.1 L ABG Interpretation ABG results: 11/03/24 11/03/24 11/03/24 11:20 14:11 17:06 ABG pH 7.35 7.34 L 7.20 L D ABG pCO2 21 L 20 L 45 D ABG pO2 193 H 82 L D 78 L ABG HCO3 12 L 11 L 16 L ABG O2 Saturation 100 H 96 91 ABG Base Excess -12 L -14 L -12 L VBG pH VBG pCO2 VBG pO2 VBG Base Excess 11/04/24 11/04/24 11/04/24 00:00 04:29 05:15 ABG pH 7.50 H D ABG pCO2 30 L D ABG pO2 109 H D ABG HCO3 23 ABG O2 Saturation 100 H ABG Base Excess 1 VBG pH 7.43 7.52 VBG pCO2 35 L 27 L VBG pO2 43 57 VBG Base Excess -1 0 11/05/24 11/06/24 11/06/24 04:49 03:40 21:45 ABG pH 7.48 H 7.41 ABG pCO2 35 43 ABG pO2 74 L D 108 D ABG HCO3 26 27 H ABG O2 Saturation 96 99 H ABG Base Excess 3 2 VBG pH 7.49 VBG pCO2 39 D VBG pO2 39 VBG Base Excess 6 H 11/07/24 11/08/24 11/09/24 05:59 04:19 04:11 ABG pH 7.49 H 7.48 H 7.44 ABG pCO2 39 38 40 ABG pO2 71 L D 77 L 63 L ABG HCO3 29 H 29 H 27 H ABG O2 Saturation 96 97 93 ABG Base Excess 6 H 5 H 3 VBG pH VBG pCO2 VBG pO2 VBG Base Excess 11/10/24 07:02 ABG pH 7.45 ABG pCO2 42 ABG pO2 83 D ABG HCO3 29 H ABG O2 Saturation 98 ABG Base Excess 5 H VBG pH VBG pCO2 VBG pO2 VBG Base Excess Quality Measures Quality Measures sepsis Current suspected stage: ruled out Possible source: pulmonary Blood cultures ordered: completed in ED Antibiotic ordered: Yes Assessment & Plan Assessment Current Active Medications: Generic Name Dose Route Start Last Admin Trade Name Freq PRN Reason Stop Dose Admin Acetaminophen 325 mg 11/05/24 09:48 Acetaminophen 325 Mg Tablet PO 12/03/24 15:31 Q6H PRN Fever >101.5 Albuterol/Ipratropium 3 ml 11/13/24 10:30 Albuterol/Ipratropium (Duoneb) Rt Anastacia 3 Ml Nebu INH 12/11/24 10:59 Q4HRRT PRN wheezing Atorvastatin Calcium 40 mg 11/13/24 21:00 11/16/24 20:33 Atorvastatin Calcium 20 Mg Tablet PO 12/13/24 20:59 40 mg HS BETO Administration Dextrose 25 ml 11/11/24 16:45 Dextrose 50%-Water Inj 50 Ml Syringe IV 12/11/24 16:44 Q15MIN PRN BG 50-70 responsive npo pt Dextrose 50 ml 11/11/24 16:45 Dextrose 50%-Water Inj 50 Ml Syringe IV 12/11/24 16:44 Q15MIN PRN BG <50 OR BG <70 & pt unresponsive Folic Acid 1 mg 11/14/24 09:00 11/17/24 09:36 Folic Acid 1 Mg Tablet PO 12/14/24 08:59 1 mg QDAY BETO Administration Glucagon 1 mg 11/11/24 16:45 Glucagon Inj 1 Mg Vial IM Q15MIN PRN BG <70, and no IV access Ferric Sodium Gluconate 125 mg 110 mls @ 110 mls/hr 11/08/24 17:15 11/17/24 09:41 / Sodium Chloride IV 12/08/24 17:14 110 mls/hr QDAY BETO Administration Insulin Human Lispro 0 unit 11/12/24 17:15 11/17/24 16:28 Insulin Lispro (Admelog) 1 Unit/0.01 Ml Unit SC 12/12/24 17:14 Not Given ACHS BETO Protocol Lactulose 20 gm 11/13/24 14:00 11/17/24 14:44 Lactulose Syrup 20 Gm/30 Ml Udc PO 12/13/24 13:59 20 gm TID BETO Administration Protocol Metoprolol Succinate 50 mg 11/17/24 09:00 11/17/24 09:36 Metoprolol Succinate Xl 25 Mg Tabcr PO 12/17/24 08:59 50 mg QDAY EBTO Administration Midodrine 5 mg 11/14/24 08:35 Midodrine 5 Mg Tablet PO 12/13/24 13:59 TID PRN SBP below 100 Multivitamins/Minerals 15 ml 11/14/24 09:00 11/17/24 09:36 Multivitamin 15 Ml Udc PO 12/14/24 08:59 15 ml QDAY BETO Administration Ondansetron HCl 4 mg 11/03/24 15:32 Ondansetron Inj 2 Mg/Ml Inj 2 Ml IVP 12/03/24 15:31 Q6H PRN NAUSEA OR VOMITING Protocol Pantoprazole Sodium 40 mg 11/14/24 09:00 11/17/24 09:36 Pantoprazole 40 Mg Tablet PO 12/14/24 08:59 40 mg BID BETO Administration Sennosides 1 tab 11/04/24 09:00 11/17/24 09:12 Senna Tablet PO 12/04/24 08:59 Not Given QDAY BETO Protocol Sodium Chloride 3 ml 11/03/24 10:58 Sodium Chloride Rt Anastacia 0.9% 3 Ml Nebu INH 12/03/24 10:57 PRN PRN SOLN Thiamine HCl 100 mg 11/14/24 09:00 11/17/24 09:36 Thiamine 100 Mg Tablet PO 12/14/24 08:59 100 mg QDAY BETO Administration Plan Assessment: 49-year-old male with past medical history of hypertension and personal history of esophageal cancer status post-treatment in remission who presented to ED with a chief complaint of weakness and shortness of breath. Admitted for alcohol withdrawal management. #Acute encephalopathy ? resolved #Generalized weakness ? improving #Demyelinating disease pattern on MRI - Patient is cachectic with temporal wasting, and BMI of 18.3 kg/m. - Consider hepatic/metabolic encephalopathy in the setting of alcohol use, vs infectious, vs alcohol withdrawal, vs vs anoxic (distributive/septic shock vs hypovolemic). - Weakness Ddx: alcohol-related polyneuropathy vs inflammatory myopathy vs deconditioning vs nutritional/vit deficiency. - Imaging showed irregular liver contour; Ammonia was 78 on presentation. has LGIB. - MRI of the head showed punctate foci with increased signal in the frontal parietal white matter, demyelinating disease pattern possible. Low likelihood of esophageal cancer metastasis. - EEG is abnormal with intermittent slowing consistent with metabolic/degenerative or vascular origin. However, no epileptiform discharges noted. NH4+ <10 11/15 Plan: - Thiamine 100mg, folate and multivitamin - Lactulose 20 gm p.o. 3 times daily, goal of 3-4 BM per day - Neurology consulted, pending acetylcholine receptor antibody (myasthenia gravis) - Neurology recommends outpatient EMG assessment if pt shows poor progress with PT. - F/P with neurology outpatinet for determining prognosis. - Rifxamin 550mg BID -d/c on 11/15 #NSTEMI of undetermined cause, resolved - Trop i peak 4.326, downtrended subsequntly. 11/16/24 cardiac cath procedure Summary/findings: 1. NSTEMI II: LHC showed normal coronaries without any angiographically significant obstruction and few luminal irregularities. 2. LVEF was 55-60%. 3. LVEDP midly elevated at 24 mm hg. There was significant transvalvular aortic gradient of 18-20 mmHg. 4. Normal elevated right heart pressures with mean RA of 5 mm hg, mean PA of 19 mmhg and mean PCWP at 12 mm Hg. Plan: ?Cardiology on board, recommendations appreciated - atorvastatin 40mg Qday ?Aggressive medical management and aggressive risk factor modification - Patient recommended not to lift more than 5 lbs for the next 7-10 days and follow up with outpatient cardiology in 7 days. - d/c ASA 81mg #Suspicion of Takotsubo cardiomyopathy #Possible LVOT obstruection 05/31 [facility] - Echo 11/03/2024 showed ejection fraction 35 to 40%, decreased apical motion - TTE: moderate Lt ventricular systolic dysfunction, severe MR, some LVOT obstruction - Appears intravascularly dry evidenced by hypernatremia and lack of edema on physical exam Plan: - Raised metoprolol succinate to 50mg Qday - Midodrine 5 mg p.o. 3 times daily - Cardiology consulted, appreciate recommendations - TTE for reevaluation of LVEF (cardio, 11/14) - Limited TTE - Normal LV size and function. Mild LVH. Estimated EF at 60-65 %. Sigmoid septum noted. Grade 1 diastolic dysfunction. Normal RV size and function. RVSP mild to moderately elevated around 35 to 40 mmHg. Mild to moderate eccentric MR. Improved ABBI and peak resting gradient is around 40 mmHg. Much improved than on admission which was around 80-100 mmHg. Moderate aortic valve sclerosis without any clear evidence of stenosis. Mild TR Mildly dilated LA and IVC not well-visualized. #Pneumonia #Leukocytosis #Acute phase reaction to stress dose steroids Differential diagnosis: - Consider aspiration pneumonia in the presence of dysphagia due to history of esophageal cancer, vs hospital-acquired pneumonia vs atelectasis. Diagnostic workup: - Chest x-ray significant for bibasilar infiltrates - Initial ABG shows pH 7.35, pCO2 21, pO2 193, bicarb 12, patient on high flow nasal cannula in ED, significantly tachypneic, increased work of breathing, respiratory rate in 40s, accessory muscle use noted. - ABG 11/11/2024 pH 7.45, CO2 42, PaO2 83, HCO3 29 - Patient denies any sick contacts, although CTA shows significant right-sided pneumonia and left base pneumonia - Bedside flu, COVID negative, cocci IgM negative, MRSA nasal screen negative, Blood cultures negative -Thick excessive secretions and cough improved, CTAB on PE 11/13 -WBC 21.8, 17.5, 17.3, 14.5 (11/17) downtrending Plan: - Completed treatment with Zosyn and ceftriaxone - Chest PT - DuoNebs Q4 PRN, albuterol/ipratropium Q4 PRN, Mucinex PRN - Follow CBC #Decompensated cirrhosis 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 #Transaminitis #Suspected hepatic encephalopathy #GI bleed workup #Melena Diagnostic workup: - CTA abdomen showed evidence of cirrhosis - Per the patient's family member the patient consumes 2 bottles of hard alcohol on a daily basis in addition to beer, Hepatitis panel negative - CT chest abdomen pelvis showed cirrhosis. Liver ultrasound shows ascites. - AST 82 ALT 68 11/17/2024, has been downtrending; transaminitis likely 2/2 hypoxic liver injury - MELD score of 7, 1.9% estimated 3-month mortality - Child-Pug Score: 8 - EGD 11/07/2024 showed grade 1 esophageal varices, 2+ esophageal varices not large enough for band ligation Plan: - Continue folate and thiamine - Continue lactulose 20 GM p.o. 3 times daily, titrate to 4-5 bowel movements - Continue Protonix twice daily - monitor hemoglobin daily #Esophageal cancer, in remission As reported by the patient. Differential diagnosis: Patient is status post esophagectomy Diagnostic workup: - Patient reported self history of esophageal cancer reports completed treatment heart disease in remission - History of esophagectomy, there is suspicion of underlying dysphagia Follow-up: - Passed swallow evaluation AM 11/13 - Continue tube feeds #Large right inguinal hernia #Dilated bowel loops Differential diagnosis: Incarcerated hernia. Diagnostic workup: - On physical exam hernia is reducible, low suspicion of incarceration - CTA abdomen pelvis shows large right inguinal hernia noted on imaging as well, no radiological signs of incarceration Treatment: - General Surgery consulted, no surgical intervention needed in this admission, can follow up outpatient #Normocytic normochromic anemia versus iron deficiency anemia Differential diagnosis: Nutritional deficiency, in the setting of sepsis, GI bleed, low suspicion of hemolysis Diagnostic workup: - Hemoglobin 8.1 on presentation - Hemoglobin 8.1 hematocrit 24.9 11/16/2024 - Iron level 19 on 11/07/2024 Treatment: - Ferric gluconate 125 mg IV daily - Continue folic acid and multivitamin #Hypernatremia, resolved Differential diagnosis: Hypovolemia - Was given free water flushes Diagnostic workup: - Na 152 11/11/2024 - Pt free water deficit calculated to be 2.64L - Na 145 11/13/2024 -completion of treatment Plan: -Monitor sodium levels #Alcohol withdrawal (resolved) # Distributive shock, secondary to sepsis, septic shock secondary to aspiration pneumonia, resolved #Acute hypoxic respiratory failure secondary to pneumonia, respiratory failure in setting of shock (resolved) #Status post extubation 11/10/2024 #Hypokalemia (Resolved) #Lactic acidosis, (Resolved) #High anion gap metabolic acidosis, (Resolved) #Thrombocytosis, (Resolved) Health maintenance: DVT prophylaxis: SCDs GI prophylaxis: IV Protonix twice a day Diet: Routine Tubes: Lines: Peripheral IV, right IJ triple-lumen Code status: Full code Case discussed with my attending Dr. Iraheta, and senior resident, Dr. Quinton Vargas MD PGY-1 Attending Provider Attestation/Addendum I have discussed and was present for the essential components of the history, physical examination, diagnosis, and treatment plan with the resident. I agree with the patient's care as documented by the resident and amended herein by me. Dutch Pratt DO. Although this document has been carefully reviewed, there may still be some phonetic and other typographical errors. These errors are purely grammatical due to imperfections in the software program and should not be construed in any way to compromise the substance of the patient's medical care during this visit.
--- NOTE | 2024-11-17 21:28 | PD.IMPROG ---
Documentation for date of: 11/17/24 Subjective Subjective Interval history: Hemoglobin hematocrit 8.3 and 24.0 Exam Vital Signs Temp Pulse Resp BP Pulse Ox O2 Del Method O2 Flow Rate 98.6 F 104 H 19 113/65 96 Room Air 3 11/17/24 20:00 11/17/24 20:00 11/17/24 20:00 11/17/24 20:00 11/17/24 20:00 11/17/24 20:00 11/13/24 18:00 FiO2 96 11/12/24 19:13 Objective Labs 11/17/24 05:49 11/17/24 05:49 Labs: Laboratory Results - last 24 hr 11/16/24 11/16/24 11/16/24 13:21 13:21 13:21 WBC RBC Hgb Hct MCV MCH MCHC RDW Std Deviation Plt Count Neut % (Auto) Lymph % (Auto) [place] % (Auto) Eos % (Auto) Baso % (Auto) Neut # (Auto) Lymph # (Auto) [place] # (Auto) Eos # (Auto) Baso # (Auto) Immature Gran # (Auto) Absolute Nucleated RBC Immature Gran % Nucleated RBC % POC Blood Site Aortic Pulmonary Artery POC O2 Saturation 92 60 L Sodium Potassium Chloride Carbon Dioxide Anion Gap BUN Creatinine Estim Creat Clear Calc eGFR BUN/Creatinine Ratio Glucose Calculated Osmolality Calcium Corrected Calcium Phosphorus Magnesium Total Bilirubin AST ALT Alkaline Phosphatase Total Protein Albumin Globulin Albumin/Globulin Ratio 11/17/24 05:49 WBC 14.5 H RBC 2.64 L Hgb 8.3 L Hct 26.0 L MCV 99 MCH 31.4 MCHC 31.9 RDW Std Deviation 75.2 H Plt Count 341 D Neut % (Auto) 76 Lymph % (Auto) 12 [place] % (Auto) 9 Eos % (Auto) 2 Baso % (Auto) 1 Neut # (Auto) 11.1 H Lymph # (Auto) 1.8 [place] # (Auto) 1.3 H Eos # (Auto) 0.2 Baso # (Auto) 0.1 Immature Gran # (Auto) 0.14 H Absolute Nucleated RBC 0.00 Immature Gran % 1 H Nucleated RBC % 0 POC Blood Site POC O2 Saturation Sodium 136 Potassium 4.6 Chloride 102 Carbon Dioxide 24.6 Anion Gap 9 BUN 9 Creatinine 0.8 Estim Creat Clear Calc 80.8 eGFR > 60 BUN/Creatinine Ratio 11 L Glucose 99 Calculated Osmolality 270 L Calcium 8.2 L Corrected Calcium 8.9 Phosphorus 3.2 Magnesium 1.6 Total Bilirubin 0.5 AST 82 H ALT 68 H Alkaline Phosphatase 165 H Total Protein 6.0 Albumin 3.1 L Globulin 2.9 Albumin/Globulin Ratio 1.1 L Impressions Impression: Gastritis esophagitis continue to monitor CBC ABG Interpretation ABG results: 11/03/24 11/03/24 11/03/24 11:20 14:11 17:06 ABG pH 7.35 7.34 L 7.20 L D ABG pCO2 21 L 20 L 45 D ABG pO2 193 H 82 L D 78 L ABG HCO3 12 L 11 L 16 L ABG O2 Saturation 100 H 96 91 ABG Base Excess -12 L -14 L -12 L VBG pH VBG pCO2 VBG pO2 VBG Base Excess 11/04/24 11/04/24 11/04/24 00:00 04:29 05:15 ABG pH 7.50 H D ABG pCO2 30 L D ABG pO2 109 H D ABG HCO3 23 ABG O2 Saturation 100 H ABG Base Excess 1 VBG pH 7.43 7.52 VBG pCO2 35 L 27 L VBG pO2 43 57 VBG Base Excess -1 0 11/05/24 11/06/24 11/06/24 04:49 03:40 21:45 ABG pH 7.48 H 7.41 ABG pCO2 35 43 ABG pO2 74 L D 108 D ABG HCO3 26 27 H ABG O2 Saturation 96 99 H ABG Base Excess 3 2 VBG pH 7.49 VBG pCO2 39 D VBG pO2 39 VBG Base Excess 6 H 11/07/24 11/08/24 11/09/24 05:59 04:19 04:11 ABG pH 7.49 H 7.48 H 7.44 ABG pCO2 39 38 40 ABG pO2 71 L D 77 L 63 L ABG HCO3 29 H 29 H 27 H ABG O2 Saturation 96 97 93 ABG Base Excess 6 H 5 H 3 VBG pH VBG pCO2 VBG pO2 VBG Base Excess 11/10/24 07:02 ABG pH 7.45 ABG pCO2 42 ABG pO2 83 D ABG HCO3 29 H ABG O2 Saturation 98 ABG Base Excess 5 H VBG pH VBG pCO2 VBG pO2 VBG Base Excess Assessment & Plan A&P Narrative 49 years old male with acute respiratory failure bilateral pneumonia acute coronary syndrome mechanically ventilated with previous history of Esophageal carcinoma status posttreatment and supposedly in remission Difficulty placing the NGT only OGT in Plan Will attempt to place a 14 [place] NGT either via nasogastric approach or oral approach Will follow the patient # Transaminitis most likely due to hypoxic hepatitis Thank you very much for the opportunity to participate in the care of this patient Time Spent With Patient Time: Total time spent is greater than 50% in coordination of care (as documented) at patient's floor/unit and/or counseling patient:
[2024-11-17] MEDS: ATORVASTATIN CALCIUM 20 MG TABLET 40 MG PO (21:52)
--- NOTE | 2024-11-17 23:42 | ESPR_ITS ---
Documentation for date of: 11/17/24 Subjective Subjective Interval history: Patient was seen in telemetry today. No new symptoms reported. He is gradually improving in his strength and balance. Able to walk with a walker in the hallway during PT session. Not much of an appetite noted. Exam - Neurology Vital Signs Temp Pulse Resp BP Pulse Ox O2 Del Method O2 Flow Rate 98.6 F 104 H 19 113/65 96 Room Air 3 11/17/24 20:00 11/17/24 20:00 11/17/24 20:00 11/17/24 20:00 11/17/24 20:00 11/17/24 20:00 11/13/24 18:00 FiO2 96 11/12/24 19:13 Narrative Exam GENERAL APPEARANCE: Well hydrated, well-nourished in no acute distress. HEENT: Normocephalic, atraumatic, extraocular movements intact. Pupils: Equal reacting to light and accommodation NECK: Supple, no JVD or bruits. CARDIOVASULAR: Heart: S1, S2 heard, regular without S3-S4 or murmur no rubs or gallops. LUNGS/CHEST: Clear to auscultation bilaterally. No rails, rhonchi, or wheezing. Normal inspection. ABDOMEN: Soft, nontender, with normal bowel sounds. No pulsatile masses. No rebound, rigidity, or guarding. Normal inspection and palpation. EXTREMITIES: Normal inspection and palpation. No edema, clubbing or cyanosis. SKIN: Warm and dry without rashes. Normal inspection. MUSCULOSKELETAL: No cervical, thoracic, lumbar or midline bony tenderness. Normal inspection. NEURO: Alert, awake and oriented x3. Cranial nerves: II through XII grossly intact. Speech and language: Normal with no dysarthria or dysphasia. Motor system: Tone and bulk: Normal: Strength: 5 out of 5 in all 4 extremities; No pronator drift noted. Deep tendon reflexes: 2+ bilaterally symmetrical. Plantar reflex: Downgoing bilaterally. Sensory system: Intact to all modalities of sensation bilaterally. Coordination: Intact to [id number] and kxyo-[id number]-[id number] test bilaterally. No ataxia, no dysmetria, or dysdiadochokinesia noted. No intention tremors noted. Gait: Not tested. No signs of meningeal irritation noted. PSYCHIATRIC: Normal mood and affect. Objective Labs 11/17/24 05:49 11/17/24 05:49 Labs: Laboratory Results - last 24 hr 11/16/24 11/16/24 11/16/24 13:21 13:21 13:21 WBC RBC Hgb Hct MCV MCH MCHC RDW Std Deviation Plt Count Neut % (Auto) Lymph % (Auto) [place] % (Auto) Eos % (Auto) Baso % (Auto) Neut # (Auto) Lymph # (Auto) [place] # (Auto) Eos # (Auto) Baso # (Auto) Immature Gran # (Auto) Absolute Nucleated RBC Immature Gran % Nucleated RBC % POC Blood Site Aortic Pulmonary Artery POC O2 Saturation 92 60 L Sodium Potassium Chloride Carbon Dioxide Anion Gap BUN Creatinine Estim Creat Clear Calc eGFR BUN/Creatinine Ratio Glucose Calculated Osmolality Calcium Corrected Calcium Phosphorus Magnesium Total Bilirubin AST ALT Alkaline Phosphatase Total Protein Albumin Globulin Albumin/Globulin Ratio 11/17/24 05:49 WBC 14.5 H RBC 2.64 L Hgb 8.3 L Hct 26.0 L MCV 99 MCH 31.4 MCHC 31.9 RDW Std Deviation 75.2 H Plt Count 341 D Neut % (Auto) 76 Lymph % (Auto) 12 [place] % (Auto) 9 Eos % (Auto) 2 Baso % (Auto) 1 Neut # (Auto) 11.1 H Lymph # (Auto) 1.8 [place] # (Auto) 1.3 H Eos # (Auto) 0.2 Baso # (Auto) 0.1 Immature Gran # (Auto) 0.14 H Absolute Nucleated RBC 0.00 Immature Gran % 1 H Nucleated RBC % 0 POC Blood Site POC O2 Saturation Sodium 136 Potassium 4.6 Chloride 102 Carbon Dioxide 24.6 Anion Gap 9 BUN 9 Creatinine 0.8 Estim Creat Clear Calc 80.8 eGFR > 60 BUN/Creatinine Ratio 11 L Glucose 99 Calculated Osmolality 270 L Calcium 8.2 L Corrected Calcium 8.9 Phosphorus 3.2 Magnesium 1.6 Total Bilirubin 0.5 AST 82 H ALT 68 H Alkaline Phosphatase 165 H Total Protein 6.0 Albumin 3.1 L Globulin 2.9 Albumin/Globulin Ratio 1.1 L ABG Interpretation ABG results: 11/03/24 11/03/24 11/03/24 11:20 14:11 17:06 ABG pH 7.35 7.34 L 7.20 L D ABG pCO2 21 L 20 L 45 D ABG pO2 193 H 82 L D 78 L ABG HCO3 12 L 11 L 16 L ABG O2 Saturation 100 H 96 91 ABG Base Excess -12 L -14 L -12 L VBG pH VBG pCO2 VBG pO2 VBG Base Excess 11/04/24 11/04/24 11/04/24 00:00 04:29 05:15 ABG pH 7.50 H D ABG pCO2 30 L D ABG pO2 109 H D ABG HCO3 23 ABG O2 Saturation 100 H ABG Base Excess 1 VBG pH 7.43 7.52 VBG pCO2 35 L 27 L VBG pO2 43 57 VBG Base Excess -1 0 11/05/24 11/06/24 11/06/24 04:49 03:40 21:45 ABG pH 7.48 H 7.41 ABG pCO2 35 43 ABG pO2 74 L D 108 D ABG HCO3 26 27 H ABG O2 Saturation 96 99 H ABG Base Excess 3 2 VBG pH 7.49 VBG pCO2 39 D VBG pO2 39 VBG Base Excess 6 H 11/07/24 11/08/24 11/09/24 05:59 04:19 04:11 ABG pH 7.49 H 7.48 H 7.44 ABG pCO2 39 38 40 ABG pO2 71 L D 77 L 63 L ABG HCO3 29 H 29 H 27 H ABG O2 Saturation 96 97 93 ABG Base Excess 6 H 5 H 3 VBG pH VBG pCO2 VBG pO2 VBG Base Excess 11/10/24 07:02 ABG pH 7.45 ABG pCO2 42 ABG pO2 83 D ABG HCO3 29 H ABG O2 Saturation 98 ABG Base Excess 5 H VBG pH VBG pCO2 VBG pO2 VBG Base Excess Assessment & Plan Additional Assessment & Plan Additional Plan: # Generalized weakness, improving CK WNL 41 MRI brain without contrast 11/09: Punctate foci site in frontal parietal b/l white matter on FLAIR, non-specific, chronic, NOT suggestive of demyelinating diseae Plan: - EEG showed slowing consistent with metabolic/degenerative/vascular - Continue thiamine, folate - Weakness is improving significantly. - If weakness persist even after physical therapy, we will consider doing EMG nerve conduction study of both upper and lower extremities as an outpatient Consider adding Mirtazapine to help with mood symptoms, appetite and sleep.
[2024-11-18] VITALS (8 sets, daily range): BP systolic 102–137; BP diastolic 51–80; PULSE 86–101; RESP 13–95; TEMP 36.2–37; O2SAT 93–97
[2024-11-18 05:29] LABS: Basophils # (Auto) 0.1 Thou/mm3 (0.0-0.2); Basophils % (Auto) 1 % (0-2.5); Eosinophils # (Auto) 0.2 Thou/mm3 (0.0-0.5); Eosinophils % (Auto) 2 % (0-10); Hematocrit 25.1 % (41.0-53.0); Immature Granulocytes Auto 0.06 Thou/mm3 (0.00-0.00); Lymphocytes # (Auto) 1.6 Thou/mm3 (1.0-4.8); Lymphocytes % (Auto) 14 % (10-50); Mean Corpuscular HGB Conc 31.5 g/dl (31.0-37.0); Mean Corpuscular Hemoglobin 31.6 pg (25.0-35.0); Mean Corpuscular Volume 100 fL (80-100); Monocytes # (Auto) 1.1 Thou/mm3 (0.0-0.8); Monocytes % (Auto) 10 % (0-12); Neutrophils # (Auto) 7.9 Thou/mm3 (1.8-7.7); Neutrophils % (Auto) 73 % (37-80); Nucleated Red Blood Cell # 0.00 Thou/mm3 (0.00-0.00); Nucleated Red Blood Cell % 0 /100 WBC (0); Platelet Count 252 Thou/mm3 (140-440); RDW Standard Deviation 76.9 fL (35.1-43.9); Red Blood Count 2.50 Miln/mm3 (4.50-5.90); White Blood Count 10.9 Thou/mm3 (3.8-10.6)
[2024-11-18] MEDS: LACTULOSE SYRUP 20 GM/30 ML UDC PO ×2 (05:38→14:32)
[2024-11-18 06:00] LABS: Alanine Aminotransferase 53 U/L (10-49); Albumin, Serum 2.9 gm/dL (3.5-5.0); Albumin/Globulin Ratio 1.0 (1.2-2.2); Alkaline Phosphatase 145 U/L (46-116); Anion Gap 10 (7-16); Aspartate Amino Transferase 62 U/L (0-34); BUN/Creatinine Ratio 10 Ratio (12-20); Bilirubin,Total 0.5 mg/dL (0.3-1.2); Blood Urea Nitrogen 7 mg/dL (9-23); Calcium 7.9 mg/dL (8.3-10.6); Calcium (Corrected) 8.8 mg/dL (8.5-10.1); Carbon Dioxide 23.4 mMol/L (20.0-31.0); Chloride 103 mMol/L (98-107); Creatinine (Component) 0.7 mg/dL (0.6-1.3); Estimated Creatinine Clearance 92.4 mL/min (>60); Globulin 2.8 gm/dL (2.3-3.5); Glucose 101 mg/dL (74-106); Magnesium 1.8 mg/dL (1.6-2.6); Osmolality,Calculated 269 (275-295); Phosphorous 3.1 mg/dL (2.4-5.1); Potassium 4.3 mMol/L (3.4-5.1); Sodium 136 mMol/L (136-145); Total Protein 5.7 gm/dL (5.7-8.2); eGFR > 60 See Note
[2024-11-18 06:10] LABS: Hemoglobin 7.9 g/dL (13.5-16.0)
[2024-11-18] MEDS: FOLIC ACID 1 MG TABLET PO (09:57)
[2024-11-18] MEDS: PANTOPRAZOLE 40 MG TABLET PO (09:57)
[2024-11-18] MEDS: MULTIVITAMIN 15 ML UDC PO (09:57)
[2024-11-18] MEDS: THIAMINE 100 MG TABLET PO (09:57)
[2024-11-18] MEDS: Magnesium Sulfate 2 GM Ivpb 2 GM/50 ML BAG IV (09:58)
[2024-11-18] MEDS: METOPROLOL SUCCINATE XL 25 MG TABCR 75 MG PO (10:10)
[2024-11-18] MEDS: FERRIC SOD GLUC INJ 125 MG in SODIUM CHLORIDE 0.9% 100 ML 110 MG IV (10:22)
--- NOTE | 2024-11-18 14:42 | PD.RESDS ---
Planned Discharge Date 11/18/24 DS: Providers Provider Date of admission: 11/03/24 15:32 Primary care physician: Physician No Primary/Family Admitting Provider: La Diaz MD Attending Provider on Admission: Bryson Iraheta MD Consults: 11/03/24 15:37 Consult to Cardiology Routine Comment: ACS? , MVR Consulting Provider: Colin Brandt 11/03/24 18:05 Consult to Gastroenterology Urgent Comment: H/O Esophageal CA Consulting Provider: Mack Louis 11/03/24 18:56 Consult to General Surgery Stat Comment: Hernia Consulting Provider: Donald Sanford 11/06/24 07:46 Referral Registered Dietitian Routine Comment: 11/10/24 10:54 Consult to Neurology / Tele-Neurology Routine Comment: BUE Weakness Consulting Provider: Santo Saha 11/10/24 10:59 Referral Physical Therapy Routine Comment: Physician Instructions: 11/12/24 10:28 Referral Speech Therapy Routine Comment: Attending Provider on DC: SELENE Caicedo Discharging Provider: SELENE Caicedo DS: Diagnosis Problem List Completed Was Problem List Reviewed/Reconciled?: Yes Hospital Course Hospital Course Hospital course: A 49-year-old male with a history of hypertension, esophageal cancer (in remission), and chronic alcohol use presented to the emergency department on November 03, 2024, with two weeks of worsening fatigue and new-onset severe shortness of breath. He was tachypneic with a respiratory rate in the 40s and required high-flow oxygen. Labs showed metabolic and lactic acidosis, and imaging revealed possible cardiac dysfunction. He was intubated and admitted to the ICU for acute hypoxic respiratory failure and distributive shock. EKG showed deep T wave inversion in lateral leads and inverted T waves in lead I and aVL. He did have an NSTEMI type II on admission. Echocardiogram and heart catheterization later revealed findings listed under imaging section of this document. During his ICU stay, he developed black tarry stools, raising concern for gastrointestinal bleeding. He also experienced alcohol withdrawal, with his sister confirming heavy daily alcohol use. Sedation was managed with phenobarbital, benzodiazepines, and Versed. A limited echocardiogram raised concern for cardiac issues, and he was treated with pressors, diuretics, and started on vitamin supplementation. He remained sedated and lethargic initially, and later a liver ultrasound showed ascites. An EGD revealed non-bleeding esophageal varices. Despite persistent GI symptoms, his hemoglobin remained stable. Neurologically, he became alert but unable to move his upper extremities; MRI showed findings suggestive of a demyelinating process. By November 10, the patient had improved and was successfully extubated. He remained on oxygen, continued to produce thick secretions, and required respiratory therapy. On November 11, although he had worsening leukocytosis, he was afebrile, hemodynamically stable, and downgraded from ICU to telemetry. Out of ICU, pt was hypernatremic with Na 152, which normalized with IV D5W-0.5NS. Now encouraging oral intake and fluids. At the point of discharge, pt respiraotry status has been steadily improving, thick respiratory secretions resolved, and lungs sound clear to sucultation. Patient sats well on RA. Mentation over all improving, he is more awake and responsive, tolerating oral intake. Weakness has been getting better with PT. Hemoglobin has been stable around 8.0. Pancultures have been negative. Patient is medically stable and can be safely discharged to previous state of living. Imaging: +MRI of the head showed punctate foci with increased signal in the frontal parietal white matter, demyelinating disease pattern possible. Low likelihood of esophageal cancer metastasis. +EEG is abnormal with intermittent slowing consistent with metabolic/degenerative or vascular origin. However, no epileptiform discharges noted. +Echocardiogram findings included sigmoid interventricular septum, moderate to severe eccentric MR, moderate to severe PAH, HFrEF with apical akinesis. +Limited TTE - Normal LV size and function. Mild LVH. Estimated EF at 60-65 %. Sigmoid septum noted. Grade 1 diastolic dysfunction. Normal RV size and function. RVSP mild to moderately elevated around 35 to 40 mmHg. Mild to moderate eccentric MR. Improved ABBI and peak resting gradient is around 40 mmHg. Much improved than on admission which was around 80-100 mmHg. Moderate aortic valve sclerosis without any clear evidence of stenosis. Mild TR Mildly dilated LA and IVC not well-visualized. +EGD 11/07/2024 showed grade 1 esophageal varices, 2+ esophageal varices not large enough for band ligation +11/16/24 cardiac cath procedure Summary/findings: 1. NSTEMI II: LHC showed normal coronaries without any angiographically significant obstruction and few luminal irregularities. 2. LVEF was 55-60%. 3. LVEDP midly elevated at 24 mm hg. There was significant transvalvular aortic gradient of 18-20 mmHg. 4. Normal elevated right heart pressures with mean RA of 5 mm hg, mean PA of 19 mmhg and mean PCWP at 12 mm Hg. Admission Diagnoses: #Acute encephalopathy ? resolved #Generalized weakness ? 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 #Transaminitis #Suspected hepatic encephalopathy #GI bleed workup #Melena #Esophageal cancer, in remission #Large right inguinal hernia #Dilated bowel loops #Normocytic normochromic anemia versus iron deficiency anemia #Alcohol withdrawal (resolved) # Distributive shock, secondary to sepsis, septic shock secondary to aspiration pneumonia, resolved #Acute hypoxic respiratory failure secondary to pneumonia, respiratory failure in setting of shock (resolved) #Status post extubation 11/10/2024 #Hypokalemia (Resolved) #Lactic acidosis, (Resolved) #High anion gap metabolic acidosis, (Resolved) #Thrombocytosis, (Resolved) Recommendations: 1. Recommend aggressive medical management and aggressive risk factor modification. 2. Patient recommended not to lift more than 5 lbs for the next 7-10 days and follow up with me in my office in 7 days. -Continue with atorvastatin 40 Mg daily at night, ferric gluconate 125 Mg IV daily, folic acid 1 mg daily, metoprolol succinate increased to 50mg daily, midodrine 5 Mg 3 times daily, and thiamine 100 Mg daily. Discontinued aspirin 81 Mg daily. Time Spent with Patient Time attestation: Total time spent providing and/or coordinating discharge services: Time spent: Less than 30 minutes Quality: Stroke Pt Provided Written Stroke Discharge Instructions: No (NO STROKE S/S) Exam Vital Signs Temp Pulse Resp BP Pulse Ox O2 Del Method O2 Flow Rate 98.6 F 92 24 H 137/80 H 93 L Room Air 3 11/18/24 12:00 11/18/24 13:27 11/18/24 13:27 11/18/24 12:00 11/18/24 13:27 11/18/24 12:00 11/13/24 18:00 FiO2 96 11/12/24 19:13 Discharge Plan Plan Patient Disposition: [facility]fer [facility] (SNF) Patient condition on transfer: Stable Care Plan Goals: Discharge Instructions: Follow up with your PCP within one week Follow up with your transportation job titles, Dr. Brandt, within one- two weeks upon D/C. Address[facility] [address], [address] [place] [address]. Phone:? . Call to make an appointment. He will want to follow-up in regards to cardiac cath results. Avoid lifting more than 5 pounds for the next 7 to 10 days. I am prescribing you a cholesterol medicine called, Lipitor (Atorvastatin), take as prescribed. I am prescribing you multivitamins, folic acid and thiamine. Take these as prescribed for two weeks. I am prescribing you lactulose 20 g 3 times daily. Take this up to 3 times daily for bowel movements of 2-3 a day and this is to prevent from toxins building up in your body related to your Liver disease. I am prescribing you a blood pressure medicine called metoprolol succinate 75 mg, take as prescribed. I am also prescribing you a medicine called Remeron (mirtazapine). Take this as prescribed as this will help for oral intake. I am stopping your nifedipine and aspirin upon discharge. Avoid all alcohol use and any other substances upon discharge. Return to ER if your symptoms worsen or return Prescriptions/Referrals Prescriptions/Med Rec: New atorvastatin [Lipitor] 40 mg tablet 40 mg PO QPM 30 Days Qty: 30 0RF Rx Instructions: Take one tablet by mouth every night folic acid 1 mg tablet 1 mg PO QDAY 14 Days Qty: 14 0RF Rx Instructions: Take one tablet by mouth everyday thiamine HCl (vitamin B1) 100 mg tablet 100 mg PO QDAY 14 Days Qty: 14 0RF Rx Instructions: Take one tablet by mouth every day mirtazapine [Remeron] 15 mg tablet 15 mg PO HS 30 Days Qty: 30 0RF Rx Instructions: Take one tablet by mouth every night lactulose 10 gram/15 mL solution 20 g PO TID 30 Days Qty: 2700 0RF Rx Instructions: Take 1 cup (20 grams, 30 mL) by mouth three times daily metoprolol succinate 50 mg tablet extended release 24 hr 75 mg PO QDAY 30 Days Qty: 45 0RF Rx Instructions: Take a tablet and a half by mouth every day Discontinued nifedipine 60 mg tablet extended release 24hr 60 mg PO QDAY Patient Comments: TAKE 1 TABLET BY MOUTH EVERY DAY aspirin 81 mg tablet,delayed release (DR/EC) 81 mg PO QDAY Patient Comments: TAKE 1 TABLET BY MOUTH EVERY DAY Referrals: No Primary/Family,Physician [Primary Care Provider] - Patient/Caregiver Discharge Instructions Discharge Activity: activity as tolerated Education Materials: Hepatic Encephalopathy, Takotsubo Cardiomyopathy, ED Cirrhosis, ED Pneumonia (Adult) Print Language: Sinhala Stand Alone Forms: [facility] Award Info., Patient Portal Info Letter Discharge Order Discharge Orders: Discharge (Routine); Ordered 11/18/24 Ordered By: Rosalinda Alcantara Quality Discharge Quality Measures VTE prophylaxis Attestestation MD Attestation I have discussed and was present for the essential components of the discharge history, physical examination, diagnosis, and discharge treatment plan with the resident. I agree with the patient's discharge care as documented by the resident and amended herein by me. Dutch Pratt DO. The patient understood all discharge instructions, all questions were answered satisfactorily. The patient was instructed to return to the Emergency Department is symptoms worsened or persisted. Patient was stable, afebrile and tolerating p.o. intake at time of discharge to SNF. See resident note above for additional details in regards to hospital stay Although this document has been carefully reviewed, there may still be some phonetic and other typographical errors. These errors are purely grammatical due to imperfections in the software program and should not be construed in any way to compromise the substance of the patient's medical care during this visit.
--- NOTE | 2024-11-18 15:20 | PC.SS ---
Follow up note: Patient now has authorization for [facility]. Patient can d/c via [employer]. SS contacted [facility] who can transport patient by 5:30pm. Updated floor nurse. Patient will need to void first. If patient does not void by that time, community affairs director staff can cancel transport with [facility] at [phone].
--- NOTE | 2024-11-18 17:43 | PD.RESPRO ---
Documentation for date of: 11/18/24 Subjective Subjective Interval history: Patient is seen and examined at bedside No acute overnight events. Denies any other complaints. Endorsed that he is doing good Labs done today revealed significant improvement in leukocytosis, and improving transaminitis Primary team plan to discharge the patient. -Continue with atorvastatin 40 Mg daily at night, ferric gluconate 125 Mg IV daily, folic acid 1 mg daily, metoprolol succinate 75 Mg daily, midodrine 5 Mg 3 times daily, and thiamine 100 Mg daily. Discontinued aspirin 81 Mg daily. LHC and RHC on 11/16/2024 revealed 1. NSTEMI II: LHC showed normal coronaries without any angiographically significant obstruction and few luminal irregularities. 2. LVEF was 55-60%. 3. LVEDP midly elevated at 24 mm hg. There was significant transvalvular aortic gradient of 18-20 mmHg - pt with no and has LVOT obstruction with ABBI and sigmoid septum. 4. Normal elevated right heart pressures with mean RA of 5 mm hg, mean PA of 19 mmhg and mean PCWP at 12 mm Hg. Recommendations: 1. Recommend aggressive medical management and aggressive risk factor modification. 2. Patient recommended not to lift more than 5 lbs for the next 7-10 days and follow up with me in my office in 7 days. Recommendations: 1. Recommend aggressive medical management and aggressive risk factor modification. 2. Patient recommended not to lift more than 5 lbs for the next 7-10 days and follow up with me in my office in 7 days. Exam Vital Signs Temp Pulse Resp BP Pulse Ox O2 Del Method O2 Flow Rate 98.6 F 92 24 H 137/80 H 93 L Room Air 3 11/18/24 12:00 11/18/24 13:27 11/18/24 13:27 11/18/24 12:00 11/18/24 13:27 11/18/24 12:00 11/13/24 18:00 FiO2 96 11/12/24 19:13 Narrative Exam General: No acute distress, on oxy mask, responding well to commands, interacting well HEENT: Moist mucous membranes, oropharynx clear Neck: Supple, No masses, No JVD CVS: S1, S2 regular rate and rhythm, No murmurs, rubs or gallops Lungs: CTAB, no rhonci or wheeze or cracles Abd: Soft, NT/ND, +BS, hepatomegaly appreciated Ext: No edema, warm and well perfused Skin: No rash Psych:Flat affect. Objective Labs 11/18/24 04:32 11/18/24 04:32 Labs: Laboratory Results - last 24 hr 11/18/24 04:32 WBC 10.9 H RBC 2.50 L Hgb 7.9 L Hct 25.1 L MCV 100 MCH 31.6 MCHC 31.5 RDW Std Deviation 76.9 H Plt Count 252 D Neut % (Auto) 73 Lymph % (Auto) 14 [place] % (Auto) 10 Eos % (Auto) 2 Baso % (Auto) 1 Neut # (Auto) 7.9 H Lymph # (Auto) 1.6 [place] # (Auto) 1.1 H Eos # (Auto) 0.2 Baso # (Auto) 0.1 Immature Gran # (Auto) 0.06 H Absolute Nucleated RBC 0.00 Immature Gran % 1 H Nucleated RBC % 0 Sodium 136 Potassium 4.3 Chloride 103 Carbon Dioxide 23.4 Anion Gap 10 BUN 7 L Creatinine 0.7 Estim Creat Clear Calc 92.4 eGFR > 60 BUN/Creatinine Ratio 10 L Glucose 101 Calculated Osmolality 269 L Calcium 7.9 L Corrected Calcium 8.8 Phosphorus 3.1 Magnesium 1.8 Total Bilirubin 0.5 AST 62 H ALT 53 H Alkaline Phosphatase 145 H D Total Protein 5.7 Albumin 2.9 L Globulin 2.8 Albumin/Globulin Ratio 1.0 L ABG Interpretation ABG results: 11/03/24 11/03/24 11/03/24 11:20 14:11 17:06 ABG pH 7.35 7.34 L 7.20 L D ABG pCO2 21 L 20 L 45 D ABG pO2 193 H 82 L D 78 L ABG HCO3 12 L 11 L 16 L ABG O2 Saturation 100 H 96 91 ABG Base Excess -12 L -14 L -12 L VBG pH VBG pCO2 VBG pO2 VBG Base Excess 11/04/24 11/04/24 11/04/24 00:00 04:29 05:15 ABG pH 7.50 H D ABG pCO2 30 L D ABG pO2 109 H D ABG HCO3 23 ABG O2 Saturation 100 H ABG Base Excess 1 VBG pH 7.43 7.52 VBG pCO2 35 L 27 L VBG pO2 43 57 VBG Base Excess -1 0 11/05/24 11/06/24 11/06/24 04:49 03:40 21:45 ABG pH 7.48 H 7.41 ABG pCO2 35 43 ABG pO2 74 L D 108 D ABG HCO3 26 27 H ABG O2 Saturation 96 99 H ABG Base Excess 3 2 VBG pH 7.49 VBG pCO2 39 D VBG pO2 39 VBG Base Excess 6 H 11/07/24 11/08/24 11/09/24 05:59 04:19 04:11 ABG pH 7.49 H 7.48 H 7.44 ABG pCO2 39 38 40 ABG pO2 71 L D 77 L 63 L ABG HCO3 29 H 29 H 27 H ABG O2 Saturation 96 97 93 ABG Base Excess 6 H 5 H 3 VBG pH VBG pCO2 VBG pO2 VBG Base Excess 11/10/24 07:02 ABG pH 7.45 ABG pCO2 42 ABG pO2 83 D ABG HCO3 29 H ABG O2 Saturation 98 ABG Base Excess 5 H VBG pH VBG pCO2 VBG pO2 VBG Base Excess Quality Measures Quality Measures sepsis Current suspected stage: ruled out Possible source: pulmonary Blood cultures ordered: completed in ED Antibiotic ordered: No Assessment & Plan Assessment Current Active Medications: Generic Name Dose Route Start Last Admin Trade Name Freq PRN Reason Stop Dose Admin Acetaminophen 325 mg 11/05/24 09:48 Acetaminophen 325 Mg Tablet PO 12/03/24 15:31 Q6H PRN Fever >101.5 Albuterol/Ipratropium 3 ml 11/13/24 10:30 Albuterol/Ipratropium (Duoneb) Rt Anastacia 3 Ml Nebu INH 12/11/24 10:59 Q4HRRT PRN wheezing Atorvastatin Calcium 40 mg 11/13/24 21:00 11/17/24 21:52 Atorvastatin Calcium 20 Mg Tablet PO 12/13/24 20:59 40 mg HS BETO Administration Dextrose 25 ml 11/11/24 16:45 Dextrose 50%-Water Inj 50 Ml Syringe IV 12/11/24 16:44 Q15MIN PRN BG 50-70 responsive npo pt Dextrose 50 ml 11/11/24 16:45 Dextrose 50%-Water Inj 50 Ml Syringe IV 12/11/24 16:44 Q15MIN PRN BG <50 OR BG <70 & pt unresponsive Folic Acid 1 mg 11/14/24 09:00 11/18/24 09:57 Folic Acid 1 Mg Tablet PO 12/14/24 08:59 1 mg QDAY BETO Administration Glucagon 1 mg 11/11/24 16:45 Glucagon Inj 1 Mg Vial IM Q15MIN PRN BG <70, and no IV access Ferric Sodium Gluconate 125 mg 110 mls @ 110 mls/hr 11/08/24 17:15 11/18/24 10:22 / Sodium Chloride IV 12/08/24 17:14 110 mls/hr QDAY BETO Administration Insulin Human Lispro 0 unit 11/12/24 17:15 11/18/24 11:30 Insulin Lispro (Admelog) 1 Unit/0.01 Ml Unit SC 12/12/24 17:14 Not Given ACHS BETO Protocol Lactulose 20 gm 11/13/24 14:00 11/18/24 14:32 Lactulose Syrup 20 Gm/30 Ml Udc PO 12/13/24 13:59 20 gm TID BETO Administration Protocol Metoprolol Succinate 75 mg 11/18/24 10:05 11/18/24 10:10 Metoprolol Succinate Xl 25 Mg Tabcr PO 12/18/24 10:04 75 mg QDAY BETO Administration Midodrine 5 mg 11/14/24 08:35 Midodrine 5 Mg Tablet PO 12/13/24 13:59 TID PRN SBP below 100 Mirtazapine 15 mg 11/18/24 21:00 Mirtazapine 15 Mg Tablet PO 12/18/24 20:59 HS BETO Multivitamins/Minerals 15 ml 11/14/24 09:00 11/18/24 09:57 Multivitamin 15 Ml Udc PO 12/14/24 08:59 15 ml QDAY BETO Administration Ondansetron HCl 4 mg 11/03/24 15:32 Ondansetron Inj 2 Mg/Ml Inj 2 Ml IVP 12/03/24 15:31 Q6H PRN NAUSEA OR VOMITING Protocol Pantoprazole Sodium 40 mg 11/14/24 09:00 11/18/24 09:57 Pantoprazole 40 Mg Tablet PO 12/14/24 08:59 40 mg BID BETO Administration Sennosides 1 tab 11/04/24 09:00 11/18/24 09:57 Senna Tablet PO 12/04/24 08:59 1 tab QDAY BETO Administration Protocol Sodium Chloride 3 ml 11/03/24 10:58 Sodium Chloride Rt Anastacia 0.9% 3 Ml Nebu INH 12/03/24 10:57 PRN PRN SOLN Thiamine HCl 100 mg 11/14/24 09:00 11/18/24 09:57 Thiamine 100 Mg Tablet PO 12/14/24 08:59 100 mg QDAY BETO Administration Plan The patient is a 49-year-old male with significant past medical history of esophageal cancer currently on remission, and hypertension presented to ED with chief complaint of acute SOB and generalized weakness is currently being treated for septic shock, Takotsubo syndrome complicated by sigmoid interventricular septum further leading to tachycardia and NSTEMI type II. #Abnormal EKG, likely 2/2 #Takotsubo syndrome vs LAD, #Sigmoid interventricular septum, possibly leading to #Moderate to severe eccentric MR, leading to #Moderate to severe PAH, resolved #HFrEF with apical akinesis, improved EKG was significant for sinus tachycardia with deep symmetric T wave inversion in lateral leads V4 to V6, and inverted T waves in lead I and aVL. TTE on 11/03/2024 revealed: Normal LV size and moderate LV systolic dysfunction with an EF of 35 to 40%. Apical akinesis with hypokinesis of the mid to apical anterior, anterolateral and apical septal segments indicating possible Takotsubo syndrome versus LAD involvement. RV Normal in size and function. 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 Severe LA dilatation. Trace AI Moderate TR with mild RA dilatation. No Pericardial Effusion. IVC not well-visualized. -As the patient has sigmoid interventricular septum, and recent stressor likely leading to Takotsubo syndrome, leading to tachycardia of the base of left ventricle, which is further pulling in mitral valve leading to MR resulting with moderate to severe PAH. -Volume status is critical, to maintain euvolemia, as hypovolemia will cause decrease venous return, resulting as compensatory tachycardia of upper left ventricle leading to further MR, with increased pulmonary arterial pressure and shunt reversal. On the other hand, if there is hypervolemia leading to increased venous return, will complicate MR and increased pulmonary artery pressure. -Increased metoprolol XL 50mg daily -Continue with atorvastatin 40 Mg daily at night, ferric gluconate 125 Mg IV daily, folic acid 1 mg daily, metoprolol succinate 75 Mg daily, midodrine 5 Mg 3 times daily, and thiamine 100 Mg daily. Discontinued aspirin 81 Mg daily. LHC and RHC on 11/16/2024 revealed \ 1. NSTEMI II: LHC showed normal coronaries without any angiographically significant obstruction and few luminal irregularities. 2. LVEF was 55-60%. 3. LVEDP midly elevated at 24 mm hg. There was significant transvalvular aortic gradient of 18-20 mmHg - pt with no and has LVOT obstruction with ABBI and sigmoid septum. 4. Normal elevated right heart pressures with mean RA of 5 mm hg, mean PA of 19 mmhg and mean PCWP at 12 mm Hg. Recommendations: 1. Recommend aggressive medical management and aggressive risk factor modification. 2. Patient recommended not to lift more than 5 lbs for the next 7-10 days and follow up with me in my office in 7 days. #Acute encephalopathy, improved Likely multifactorial 2/2 #Alcohold withdrawal, and #Demylinating disease pattern 2/2 #Alcohol abuse disorder Patient presented with generalized weakness, later required intubation in the setting of aspiration pneumonia and septic shock. However, the patient has not been tolerating spontaneous breathing trials. BL UE weakness was there so MRI brain was done that revealed punctate foci increased signal in the frontal parietal white matter, demyelinating disease pattern. -Management deferred to primary hospitalist team #Anemia Likely multifactorial in the setting of nutritional deficiency along with iron, vitamin B12 and folic acid deficiency MCV is elevated at 99. Given his severe alcohol abuse patient is probably B12 as well as folate deficient. Patient would benefit from replacement of iron and B12 and folate which will eventually help anemia long-term and improve his tachycardia which would help with his LVOT obstruction and ABBI along with improvement of sepsis and alcohol withdrawal syndrome - Recommended IV iron infusion, vitamin B12 and folic acid #Cirrhosis #Dilated esophageal varices #Hypertensive portal gastropathy 2/2 alcohol abuse disorder -GI Dr. Louis recommended octreotide drip for 5 days. #Acute hypoxic respiratory failure, improved #Septic shock, improved #Aspiration pneumonia, improved #Severe lactic acidosis, imporved #NSTEMI type II, improved Likely multifactorial secondary to septic shock, Takotsubo syndrome, sigmoid interventricular septum leading to MR. No significant risk factor for STEMI, except for hypertension, as patient denies smoking or illicit drug use, and lipid panel was significant for LDL 39 and HDL 53. EKG unremarkable for STEMI Pt denied any chest pain - Heparin drip stopped - Aspirin 81 Mg daily - Atorvastatin 40 Mg daily at night LHC and RHC on 11/16/2024 revealed \ 1. NSTEMI II: LHC showed normal coronaries without any angiographically significant obstruction and few luminal irregularities. 2. LVEF was 55-60%. 3. LVEDP midly elevated at 24 mm hg. There was significant transvalvular aortic gradient of 18-20 mmHg - pt with no and has LVOT obstruction with ABBI and sigmoid septum. 4. Normal elevated right heart pressures with mean RA of 5 mm hg, mean PA of 19 mmhg and mean PCWP at 12 mm Hg. Recommendations: 1. Recommend aggressive medical management and aggressive risk factor modification. 2. Patient recommended not to lift more than 5 lbs for the next 7-10 days and follow up with me in my office in 7 days. 3. Continue with atorvastatin 40 Mg daily at night, ferric gluconate 125 Mg IV daily, folic acid 1 mg daily, metoprolol succinate 50 Mg daily, midodrine 5 Mg 3 times daily, and thiamine 100 Mg daily. Discontinued aspirin 81 Mg daily. Thank you for cardiology consultation. We really appreciate for the opportunity to participate in this patient care. Cardiology team will continue to follow-up on this patient. The patient's management plan was discussed with my attending physician MD Ventura Montes MD, PGY3
[2024-11-23 06:53] LABS: Legionella Ag, EIA, Urine* NOT DETECTED
== END 2024-11-18 17:47 | disposition skilled nursing facility (03) | DRG 720 ==
LOC: SERX 13:02 → SERHOLD 16:12 → S2SX 17:24 → S2NX 11-11 17:23
PROVIDERS: Internal Medicine Cardiovascular Disease; Specialist; Student in an Organized Health Care Education/Training Program; Admitting Provider Internal Medicine; Emergency Provider Family Medicine; Visit Provider Student in an Organized Health Care Education/Training Program
PROC: 0DJ08ZZ Inspection of Upper Intestinal Tract, Via Natural or Artificial Opening Endoscopic (ICD-10-PCS; CPT 43239; principal; 2024-11-07 16:45)
DX: A41.9 Sepsis, unspecified organism (principal); J96.01 Acute respiratory failure with hypoxia; Z85.01 Personal history of malignant neoplasm of esophagus; I11.0 Hypertensive heart disease with heart failure; J18.9 Pneumonia, unspecified organism; R74.01 Elevation of levels of liver transaminase levels; K40.90 Unilateral inguinal hernia, without obstruction or gangrene, not specified as recurrent; N17.9 Acute kidney failure, unspecified; E87.0 Hyperosmolality and hypernatremia; E87.4 Mixed disorder of acid-base balance; D64.9 Anemia, unspecified; D75.839 Thrombocytosis, unspecified; R82.71 Bacteriuria; R65.21 Severe sepsis with septic shock; J69.0 Pneumonitis due to inhalation of food and vomit; Q89.8 Other specified congenital malformations; I21.A1 Myocardial infarction type 2; B15.9 Hepatitis A without hepatic coma; C15.9 Malignant neoplasm of esophagus, unspecified; E83.51 Hypocalcemia; E87.1 Hypo-osmolality and hyponatremia; K70.11 Alcoholic hepatitis with ascites; E87.6 Hypokalemia; E88.09 Other disorders of plasma-protein metabolism, not elsewhere classified; F10.239 Alcohol dependence with withdrawal, unspecified; G37.9 Demyelinating disease of central nervous system, unspecified; G62.9 Polyneuropathy, unspecified; I27.20 Pulmonary hypertension, unspecified; K74.60 Unspecified cirrhosis of liver; I50.22 Chronic systolic (congestive) heart failure; E53.8 Deficiency of other specified B group vitamins; E86.1 Hypovolemia; I85.10 Secondary esophageal varices without bleeding; K20.90 Esophagitis, unspecified without bleeding; K29.71 Gastritis, unspecified, with bleeding; K31.89 Other diseases of stomach and duodenum; K76.6 Portal hypertension; K76.82 Hepatic encephalopathy; R54 Age-related physical debility; R57.8 Other shock; R64 Cachexia; Z68.1 Body mass index [BMI] 19.9 or less, adult; Z79.82 Long term (current) use of aspirin; Z79.899 Other long term (current) drug therapy; I51.81 Takotsubo syndrome; I35.8 Other nonrheumatic aortic valve disorders; I34.0 Nonrheumatic mitral (valve) insufficiency
CPT/HCPCS: 36415; 36600; 70450; 70551; 71045; 71275; 74018; 74174; 76705; 80053; 80061; 80069; 80074; 80202; 80307; 80320; 80329; 81001; 82140; 82375; 82436; 82550; 82607; 82746; 82803; 82810; 83036; 83519; 83540; 83550; 83605; 83735; 83880; 84100; 84133; 84145; 84295; 84300; 84439; 84443; 84484; 85014; 85018; 85025; 85379; 85610; 85730; 86331; 86635; 86850; 86900; 86901; 87040; 87081; 87086; 87205; 87400; 87449; 87634; 87811; 92526; 92610; 93005; 93306; 94002; 94003; 94640; 94644; 94660; 94667; 95816; 96361; 96365; 96366; 96375; 96376; 97162; 99152; 99153; 99308; A4649; A9270; C1769; C1894; J0153; J0168; J0282; J0461; J0613; J0696; J1643; J1644; J1720; J1815; J1938; J2250; J2310; J2354; J2371; J2470; J2543; J2560; J2598; J2704; J2916; J2919; J3010; J3373; J3411; J3475; J3490; J7042; J7050; J7120; J7999; Q9967; G0480; J2305

== ENCOUNTER → 2025-01-12 | Outpatient (CLI) | payer MEDICAID, SELFPAY ==
--- NOTE | 2025-01-12 | XR_ITS ---
Examination: PA lateral chest 2 views TECHNIQUE: Upright PA lateral chest 2 views Date and time: January 12, 2025 1155 hours, comparison November 11, 2024 INDICATIONS: Shortness breath left-sided chest pain one year. FINDINGS: Minimal prominence left ventricle Moderate vascular congestion Moderate bilateral pleural effusions No lobar pneumonia IMPRESSION: Mild heart failure
== END | disposition home or self-care (01) ==
DX: I50.9 Heart failure, unspecified (principal)
CPT/HCPCS: 71046